=== PATIENT | male | born 1950 | race Caucasian/White ===

== ENCOUNTER 2018-03-09 12:08 | Emergency (ER) | payer MEDICARE, OTHER, SELFPAY ==
[2018-03-09 12:12] VITALS: PULSE 55; RESP 20; TEMP 36.6; O2SAT 99
--- NOTE | 2018-03-09 12:47 | ED.GENADUL_ITS ---
Discharge Plan Disposition Patient Disposition: HOME Condition: Good Discharge Details Chief Complaint: Nk/Back Pain Clinical Impression: Lumbago Primary Care Provider: Enrico Almanzar ED Provider: Lucas Jacobs Home Meds and New Rx's Prescriptions: New acetaminophen [Mapap Extra Strength] 500 MG tablet 1,000 mg PO Q6H 5 Days Qty: 60 RF: 0 lidocaine [Lidoderm] 1 PATCH patch 1 patch Topical Q24H Qty: 4 RF: 0 ibuprofen [Motrin IB] 200 MG tablet 600 mg PO Q6H 5 Days Qty: 60 RF: 0 cyclobenzaprine 7.5 mg tablet 7.5 mg PO TID Qty: 14 RF: 0 No Action aspirin 325 MG tablet,delayed release (DR/EC) 162 mg PO DAILY Qty: 30 RF: 0 atorvastatin 80 MG tablet 80 mg PO HS Qty: 90 RF: 4 oxybutynin chloride 10 MG tablet extended release 24hr 10 mg PO DAILY Qty: 90 RF: 4 levothyroxine 50 MCG tablet 50 mcg PO DAILY Qty: 90 RF: 4 metoprolol tartrate 25 MG tablet 25 mg PO BID Qty: 180 RF: 4 fenofibrate nanocrystallized [Tricor] 145 MG tablet 145 mg PO DAILY Qty: 90 RF: 3 insulin aspart U-100 [Novolog Flexpen U-100 Insulin] 100 UNIT/1 ML insulin pen 10 - 25 units Sub-Q AC Qty: 90 RF: 4 insulin glargine [Lantus Solostar U-100 Insulin] 300 UNITS/3 ML insulin pen 70 units Sub-Q QPM Qty: 4 RF: 3 melatonin 3 MG tablet extended release 3 mg PO HS Qty: 90 RF: 4 pen needle, diabetic [BD Ultra-Fine Amber Pen Needle] 1 EACH needle 1 ea Miscellaneous QID Qty: 200 RF: 5 blood sugar diagnostic [FreeStyle Lite Strips] strip 1 ea Miscellaneous QID Qty: 360 RF: 5 tadalafil [Cialis] 5 mg tablet 5 mg PO DAILY Qty: 90 RF: 4 Discharge Instructions Instructions: Low Back Strain (ED) Additional Instructions: Please take the medication as directed. Please do not drive or operate heavy machinery while taking the Flexeril medication. If you notice any numbness or tingling in your groin, or any worsening of your symptoms please return immediately. if you notice any worsening of your symptoms, or any new symptoms such as vomiting, diarrhea, fever, chills, shortness of breath, chest pain, numbness, weakness, or fainting , please return immediately to the emergency department for reevaluation. Please follow up with your primary care provider as soon as possible for reassessment and reevaluation. As always, it was a pleasure participating in your medical care today. Referrals: Enrico Almanzar MD [Primary Care Provider] - Discharge Data Discharge Date/Time-TO BE ENTERED AT DEPARTURE: 03/09/18 12:57 Medical Decision Making This is a 67-year-old male who presents for lower back pain. He has no red flags suggestive of cauda equina syndrome, no midline tenderness, no bowel or bladder incontinence. His symptoms came on when he had been moving and lifting a lot of objects at his work recently. Symptoms have been improved with ice and ibuprofen. He states that it feels similar to when he threw his back out in the past. Physical exam demonstrates no neurologic deficits, and no other concerning findings. With reproducible paraspinal pain, and signs and symptoms consistent with a muscle sprain, and clinically inconsistent with cauda equina syndrome or severe discopathy. Patient will be discharged home with Lidoderm patch, Flexeril, and instructions for continued ice and NSAIDs. We discussed red flags which return the patient understands. I have extensively reviewed the treatment plan and discharge instructions with the patient. I have addressed all patient concerns at this time. The patient was made aware of what symptoms to monitor for that would warrant a return to the emergency department. Discussed the plan with the patient, they demonstrate verbal understanding and agreement with our assessment and plan at this time. HPI General Date/Time Provider Initiated Documentation: 03/09/18 12:19 . HPI Narrative: This is a 67-year-old male with a past medical history of chronic back pain, who presents today for back pain. 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 He denies any trauma though. Initially he felt fine and then he noticed that his back gradually began to worsen and pain. It is worsened with movement, it is relieved by sitting upright. Patient states that he has been using ice, and ibuprofen and this significantly helped. He states he has thrown out his back in the past and he states that this feels exactly like that. He denies any saddle anesthesia, bowel or bladder incontinence, weakness of his lower extremities. He does admit to slight tingling that goes down his buttock bilaterally on the posterior aspect of his proximal thighs. Patient denies any other complaints at this time. He denies any other aggravating or relieving symptoms. He denies any recent surgeries. He denies any other complaints at this time. Related Data Home Medications Medication Instructions Recorded Confirmed aspirin 162 mg PO DAILY #30 tab-cap 04/29/17 atorvastatin 80 mg PO HS #90 tab 11/09/17 fenofibrate nanocrystallized 145 mg PO DAILY #90 tab-cap 11/09/17 [Tricor] insulin aspart U-100 [Novolog 10 - 25 units SUB-Q AC #90 pen 11/09/17 Flexpen U-100 Insulin] insulin glargine [Lantus Solostar 70 units SUB-Q QPM #4 box 11/09/17 U-100 Insulin] levothyroxine 50 mcg PO DAILY #90 tab-cap 11/09/17 metoprolol tartrate 25 mg PO BID #180 tab-cap 11/09/17 oxybutynin chloride 10 mg PO DAILY #90 tab-cap 11/09/17 melatonin 3 mg PO HS #90 tab 11/11/17 pen needle, diabetic [BD #200 ea 11/13/17 Ultra-Fine Amber Pen Needle] blood sugar diagnostic strips #360 strip 02/16/18 tadalafil 5 mg tablet 5 mg PO DAILY #90 tab-cap 02/16/18 acetaminophen [Mapap Extra 1,000 mg PO Q6H 5 Days #60 tab 03/09/18 Strength] cyclobenzaprine 7.5 mg PO TID #14 tab 03/09/18 ibuprofen [Motrin Ib] 600 mg PO Q6H 5 Days #60 tab 03/09/18 lidocaine [Lidoderm] 1 patch TOPICAL Q24H #4 patch 03/09/18 Previous Rx's Medication Instructions Recorded aspirin 162 mg PO DAILY #30 tab-cap 04/29/17 atorvastatin 80 mg PO HS #90 tab 11/09/17 fenofibrate nanocrystallized 145 mg PO DAILY #90 tab-cap 11/09/17 [Tricor] insulin aspart U-100 [Novolog 10 - 25 units SUB-Q AC #90 pen 11/09/17 Flexpen U-100 Insulin] insulin glargine [Lantus Solostar 70 units SUB-Q QPM #4 box 11/09/17 U-100 Insulin] levothyroxine 50 mcg PO DAILY #90 tab-cap 11/09/17 metoprolol tartrate 25 mg PO BID #180 tab-cap 11/09/17 oxybutynin chloride 10 mg PO DAILY #90 tab-cap 11/09/17 melatonin 3 mg PO HS #90 tab 11/11/17 pen needle, diabetic [BD #200 ea 11/13/17 Ultra-Fine Amber Pen Needle] blood sugar diagnostic strips #360 strip 02/16/18 tadalafil 5 mg tablet 5 mg PO DAILY #90 tab-cap 02/16/18 acetaminophen [Mapap Extra 1,000 mg PO Q6H 5 Days #60 tab 03/09/18 Strength] cyclobenzaprine 7.5 mg PO TID #14 tab 03/09/18 ibuprofen [Motrin Ib] 600 mg PO Q6H 5 Days #60 tab 03/09/18 lidocaine [Lidoderm] 1 patch TOPICAL Q24H #4 patch 03/09/18 Allergies Allergy/AdvReac Type Severity Reaction Status Date / Time No Known Allergies Allergy Unverified 11/23/17 12:05 General Stated Complaint: Nk/Back Pain CHRISTIANE: 3 Review of Systems Review of Systems All systems reviewed & are unremarkable except as noted in HPI and below PFSH Family History Father Diabetes Dementia Neoplasm Medical History Diabetes mellitus type 2 in obese Essential hypertension Hyperlipidemia Hypothyroidism Obesity (BMI 30-39.9) Social History Smoking/Tobacco Use Status: Former Tobacco Use alcohol intake: current alcohol intake frequency: a few times a week Surgical History Appendectomy Colonoscopy - IV Sedation Coronary Stent (09/26/16) Extraction of cataract Fracture, Open Treatment Repair of umbilical hernia Exam Narrative Exam Narrative: 1.Const: Well-nourished, Well-developed, appearing stated age 2.Eyes: PERRL, no conjunctival injection, and symmetrical lids. 3.ENT: Atraumatic external nose and ears. Moist MM. Neck: Symmetric, trachea midline, No thyromegaly. 4.CVS: +S1/S2, No murmurs or gallops. Peripheral pulses 2+ and equal in all extremities. Brisk capillary refill in all extremities. 5.RESP: Unlabored respiratory effort. Clear to auscultation bilaterally. No wheezes rales or rhonchi 6.GI: Soft, Nontender/Nondistended, No hepatosplenomegaly. No guarding or rebound. 7.MSK: Normocephalic/Atraumatic, Extremities w/o deformity or ttp No cyanosis or clubbing, Normal movement of all extremities no midline tenderness to palpation over the CTLS spine. Normal ROM in flexion, extension, side bend, and rotation. Patient has +5 out of 5 strength in the lower extremities in dorsiflexion and plantarflexion, knee flexion and extension, hip flexion and extension. There is +2 over 2 dorsalis pedis pulses bilaterally. There is normal sensation to the skin with light touch at the foot, knee, and hip. Normal saddle sensation. Good sensation over the deep sural nerve area bilaterally. Rectal exam demonstrated normal rectal sensation and rectal tone. Reflexes are +2 over 4 in the patellar reflex bilaterally. +5 out of 5 strength in the medial, ulnar, radial nerve distribution bilaterally in the hands as well as intact light touch sensation to these dermatomes on the hands. Patient does demonstrate worsening of her symptoms with positive leg raise bilaterally. 8.Skin: Warm, Dry. No rashes or lesions. 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 Sensation grossly intact, no focal neurologic deficits. All 6 cardinal planes of vision are fully intact. No evidence of rotatory or vertical nystagmus. The patient demonstrated a normal [id number]-[id number], good dexterity. There was no evidence of dysdiadochokinesia. Patient was able to ambulate without difficulty. There was no wide-based gait. Romberg, and uenz-ng-natr are both normal on testing. Sensation was intact bilaterally as well as muscle strength bilaterally for all extremities. Patient was able to verbalize butter cup with no slurring, or miss pronunciation. 10.Psych: (AAO) x3. Appropriate mood and affect Course Vital Signs Temperature 36.6 C 03/09/18 12:12 Pulse 55 L 03/09/18 12:12 Respiratory Rate 20 03/09/18 12:12 Pulse Oximetry 99 03/09/18 12:12 Temperature 36.6 C 03/09/18 12:12 Temperature Source Temporal Artery Scan 03/09/18 12:12 Pulse 55 L 03/09/18 12:12 Respiratory Rate 20 03/09/18 12:12 Respiratory Effort Non-Labored 03/09/18 12:12 Pulse Oximetry 99 03/09/18 12:12 Oxygen Delivery Method Room Air 03/09/18 12:12 Oxygen Flow Rate 0 03/09/18 12:12 Pain Level 10 03/09/18 12:12
[2018-03-09] MEDS: Lidocaine 5% Patch 1 PATCH TP (12:53)
[2018-03-09] MEDS: methylPREDNISolone SUCC 125 MG VIAL IVP (12:54)
== END 2018-03-09 12:57 | disposition home or self-care (01) ==
LOC: ER 13:09
PROVIDERS: Emergency Provider Student in an Organized Health Care Education/Training Program; PCP Family Medicine
DX: M54.5 Low back pain (principal); I10 Essential (primary) hypertension; E11.9 Type 2 diabetes mellitus without complications; Z79.4 Long term (current) use of insulin
CPT/HCPCS: 96374; 99284; J2930

== ENCOUNTER 2018-04-14 10:45 | Outpatient (CLI) | payer MEDICARE, OTHER, SELFPAY ==
--- NOTE | 2018-04-14 10:38 | DI.RAD_ITS ---
SYMPTOMS/DIAGNOSIS: PAIN RIGHT KNEE: Two views. Comparison 09/29/13. Mild periarticular spurring is seen of the posterior patella. The joint spaces are otherwise well maintained. The bones are intact and normally mineralized. There is a small enthesophyte seen at the superior patella. Calcifications and vascular clips are seen in the soft tissues. IMPRESSION: Minimal degenerative changes of the right knee.
== END 2018-04-14 11:05 ==
PROVIDERS: PCP Family Medicine; Referring Provider Family Medicine; Visit Provider Orthopaedic Surgery
DX: M25.561 Pain in right knee (principal); M17.11 Unilateral primary osteoarthritis, right knee; M77.11 Lateral epicondylitis, right elbow; I10 Essential (primary) hypertension; E11.9 Type 2 diabetes mellitus without complications; Z79.4 Long term (current) use of insulin
CPT/HCPCS: 20605; 20610; 99211; 99214; 73560; J1030; J1040

== ENCOUNTER 2018-05-19 11:55 | Outpatient (CLI) | payer MEDICARE, OTHER, SELFPAY ==
[2018-05-19 13:09] LABS: Abs Immature Grans 0.06 k/cumm (0.0-0.09); Absolute Basophil Count 0.05 k/cumm (0.0-0.2); Absolute Eosinophil Count 0.14 k/cumm (0.0-0.7); Absolute Lymphocyte Count 2.22 k/cumm (1.2-3.4); Absolute Monocyte Count 0.76 k/cumm (0.11-0.7); Absolute Neutrophil Count 5.98 k/cumm (1.2-6.7); Basophils % 0.5; Eosinophils % 1.5; HGB 12.8 g/dL (13.5-17.5); Immature Grans % 0.7; Lymphocytes % 24.1; Mean Corp. HGB Concentration 33.7 g/dL (32.0-36.0); Mean Corpuscular Hemoglobin 33.4 pg (27.0-33.0); Mean Corpuscular Volume 99.2 fL (80-95); Monocytes % 8.3; Neutrophils % 64.9; Platelet Count 311 x1000/uL (130-400); RBC 3.83 m/cumm (4.50-6.00); RBC Distribution Width 12.8 % (11.8-14.1); White Blood Cell Count 9.21 k/cumm (4.4-10.8)
[2018-05-19 14:09] LABS: ALT 39 U/L (12-78); AST 34 U/L (15-37); Alkaline Phosphatase 75 U/L (46-116); Anion Gap 11.4 mmol/L (3-11); BUN 48 mg/dL (7-18); Bilirubin, Direct 0.11 mg/dL (0.00-0.20); Bilirubin, Total 0.4 mg/dL (0.2-1.0); CO2 23.6 mmol/L (21.0-32.0); CREATININE 1.94 mg/dL (0.70-1.30); Calcium 9.6 mg/dL (8.5-10.1); Chloride 103 mmol/L (98-107); Estimated GFR 34.91 (mL/min/1.73m2); Glucose 155 mg/dL (70-100); Magnesium 1.6 mg/dL (1.8-2.4); Potassium 5.6 mmol/L (3.5-5.1); Sodium 138 mmol/L (136-145); TSH (W/Ref FT4) 2.69 uIU/mL (0.358-3.74)
[2018-05-19 14:33] LABS: Cholesterol 176 mg/dL (50-200); HDL Cholesterol 39 mg/dL (40-60); LDL CHOLESTEROL 106 mg/dL (<100); Triglyceride 123 mg/dL (30-150)
== END 2018-05-19 12:15 ==
PROVIDERS: PCP Family Medicine; Visit Provider Student in an Organized Health Care Education/Training Program
DX: I48.91 Unspecified atrial fibrillation (principal); I10 Essential (primary) hypertension; I25.10 Atherosclerotic heart disease of native coronary artery without angina pectoris; Z95.5 Presence of coronary angioplasty implant and graft
CPT/HCPCS: 36415; 80048; 80061; 80076; 83721; 83735; 84443; 85025

== ENCOUNTER 2018-05-19 12:32 | Outpatient (CLI) | payer MEDICARE, OTHER, SELFPAY | END 2018-05-19 12:52 | PROVIDERS: PCP Family Medicine; Visit Provider Student in an Organized Health Care Education/Training Program | DX: I25.810 Atherosclerosis of coronary artery bypass graft(s) without angina pectoris (principal); Z95.5 Presence of coronary angioplasty implant and graft; E78.5 Hyperlipidemia, unspecified; I12.9 Hypertensive chronic kidney disease with stage 1 through stage 4 chronic kidney disease, or unspecified chronic kidney disease; N18.9 Chronic kidney disease, unspecified; E11.22 Type 2 diabetes mellitus with diabetic chronic kidney disease; Z79.4 Long term (current) use of insulin | CPT/HCPCS: 36415; 80048; 80061; 80076; 83721; 99215; 83735; 84443; 85025; 93005; 93010 ==

== ENCOUNTER 2018-07-06 16:41 | Emergency (ER) | payer MEDICARE, OTHER, SELFPAY ==
[2018-07-06] VITALS (41 sets, daily range): BP systolic 132–176; BP diastolic 54–121; PULSE 57–78; RESP 14–30; TEMP 36.6–37; O2SAT 92–97
--- NOTE | 2018-07-06 16:51 | W.ED.GENAD ---
Discharge Plan Disposition Patient Disposition: HOME Condition: Stable Discharge Details Chief Complaint: Chest Pain Clinical Impression: Chest pain Primary Care Provider: Enrico Almanzar ED Provider: Gaurav Banks Home Meds and New Rx's Prescriptions: No Action aspirin 325 MG tablet,delayed release (DR/EC) 162 mg PO DAILY Qty: 30 RF: 0 atorvastatin 80 MG tablet 80 mg PO HS Qty: 90 RF: 4 oxybutynin chloride 10 MG tablet extended release 24hr 10 mg PO DAILY Qty: 90 RF: 4 levothyroxine 50 MCG tablet 50 mcg PO DAILY Qty: 90 RF: 4 metoprolol tartrate 25 MG tablet 25 mg PO BID Qty: 180 RF: 4 fenofibrate nanocrystallized [Tricor] 145 MG tablet 145 mg PO DAILY Qty: 90 RF: 3 Novolog Flexpen U-100 Insulin 100 UNIT/1 ML insulin pen 10 - 25 units Sub-Q AC Qty: 90 RF: 4 Lantus Solostar U-100 Insulin 300 UNITS/3 ML insulin pen 70 units Sub-Q QPM Qty: 4 RF: 3 melatonin 3 MG tablet extended release 3 mg PO HS Qty: 90 RF: 4 pen needle, diabetic [BD Ultra-Fine Amber Pen Needle] 1 EACH needle 1 ea Miscellaneous QID Qty: 200 RF: 5 FreeStyle Lite Strips strip 1 ea Miscellaneous QID Qty: 360 RF: 5 tadalafil [Cialis] 5 mg tablet 5 mg PO DAILY Qty: 90 RF: 4 amlodipine 5 mg tablet 5 mg PO DAILY Qty: 90 RF: 3 cyclobenzaprine 7.5 mg tablet 7.5 mg PO TID Qty: 14 RF: 0 Discharge Instructions Instructions: Chest Pain (ED) Additional Instructions: return to the emergency department if you have worsening pain or shortness of breath. follow up with cardiology as scheduled Medical Decision Making <Roe Rodrigues MD - Last Filed: 07/06/18 19:51> 67-year-old male with known coronary artery disease presents with an episode yesterday and again today of 1-2 out of 10 substernal chest pressure. No other associated symptoms. No other ameliorating or modifying factors. He has otherwise recently been well. He arrives to the ER afebrile and well-appearing, in no acute distress, states his chest pain has abated. Patient placed on a threat monitoring analyst, IV access was established, he was referred for chest x-ray D, E, laboratory testing. Patient's EKG is unchanged from recent comparison/baseline. His laboratories reveal white blood cell count 9, hematocrit 37, platelets 280. Sodium 139, potassium 4.6, chloride 103, bicarb 26, BUN 36, creatinine 1.4. LFTs unremarkable. BNP 809, Troponin negative. Chest x-ray with mild vascular prominence. Atelectasis in the lower lobes. He remains pain-free. He will be observed in the ER with repeat troponin obtained at 4 hours given his known coronary artery disease. Case to be signed out to Dr. Banks pending repeat EKG and troponin. Lab Data Lab results reviewed: Yes I reviewed the patient's lab results. Laboratory Results - last 24 hr 07/06/18 07/06/18 17:08 17:08 WBC 9.62 RBC 3.88 L Hgb 12.8 L Hct 37.5 L MCV 96.6 H MCH 33.0 MCHC 34.1 RDW 12.1 Plt Count 280 MPV 11.2 H Immature Gran % 0.3 Neutrophils % 68.5 Lymphocytes % 21.0 Monocytes % 8.0 Eosinophils % 1.9 Basophils % 0.3 Absolute Neutrophils 6.59 Absolute Lymphocytes 2.02 Absolute Monocytes 0.77 H Absolute Eosinophils 0.18 Absolute Basophils 0.03 Sodium 139 Potassium 4.6 Chloride 103 Carbon Dioxide 26.4 Anion Gap 9.6 BUN 36 H Creatinine 1.46 H Estimated GFR/1.73 m2 48.46 Glucose 175 H Calcium 8.6 Magnesium 1.3 L Total Bilirubin 0.5 AST 22 ALT 23 Alkaline Phosphatase 68 Troponin I 0.02 NT-Pro-B Natriuret Pep 809 H Total Protein 6.9 Albumin 3.7 ECG Data Attestation: I personally reviewed and interpreted this ECG (s) as follows: Interpretation: Normal sinus rhythm, rate of 65, intraventricular conduction delay with right bundle branch block, no change versus 03/21/17. <Gaurav Banks MD - Last Filed: 07/06/18 21:32> ECG Data Attestation: I personally reviewed and interpreted this ECG (s) as follows: Prior ECG tracings: not available for review Interpretation: 2nd ekg shows sinus rhythm, rate of 62, pr 240, no acute st t wave changes HPI <Roe Rodrigues MD - Last Filed: 07/06/18 19:51> General Mode of arrival: ambulatory. Date/Time Provider Initiated Documentation: 07/06/18 16:44. Limitations to Documentation: no limitations. Information obtained by: patient. History of Present Illness 67 year old M presents to the emergency department with the chief complaint of Chest pain yesterday and today, described as mild, Quality is described as dull and other (pressure), and is localized to the chest. Patient reports no radiation. Patient started experiencing this hour(s) and it has been intermittent. No relieving factors improve symptom(s), No exacerbating factors reported . Patient notes no other symptoms.; denies cough and fever/chills. Patient did receive the following treatments prior to arrival, none Related Data Home Medications Medication Instructions Recorded Confirmed aspirin 162 mg PO DAILY #30 tab-cap 04/29/17 07/06/18 Lantus Solostar U-100 Insulin 70 units SUB-Q QPM #4 box 11/09/17 07/06/18 Novolog Flexpen U-100 Insulin 10 - 25 units SUB-Q AC #90 pen 11/09/17 07/06/18 atorvastatin 80 mg PO HS #90 tab 11/09/17 07/06/18 fenofibrate nanocrystallized 145 mg PO DAILY #90 tab-cap 11/09/17 07/06/18 [Tricor] levothyroxine 50 mcg PO DAILY #90 tab-cap 11/09/17 07/06/18 metoprolol tartrate 25 mg PO BID #180 tab-cap 11/09/17 07/06/18 oxybutynin chloride 10 mg PO DAILY #90 tab-cap 11/09/17 07/06/18 melatonin 3 mg PO HS #90 tab 11/11/17 07/06/18 pen needle, diabetic [BD #200 ea 11/13/17 05/19/18 Ultra-Fine Amber Pen Needle] blood sugar diagnostic strips #360 strip 02/16/18 05/19/18 tadalafil 5 mg tablet 5 mg PO DAILY #90 tab-cap 02/16/18 07/06/18 cyclobenzaprine 7.5 mg PO TID #14 tab 03/09/18 07/06/18 amlodipine 5 mg tablet 5 mg PO DAILY #90 tab 05/21/18 07/06/18 Previous Rx's Medication Instructions Recorded aspirin 162 mg PO DAILY #30 tab-cap 04/29/17 Lantus Solostar U-100 Insulin 70 units SUB-Q QPM #4 box 11/09/17 Novolog Flexpen U-100 Insulin 10 - 25 units SUB-Q AC #90 pen 11/09/17 atorvastatin 80 mg PO HS #90 tab 11/09/17 fenofibrate nanocrystallized 145 mg PO DAILY #90 tab-cap 11/09/17 [Tricor] levothyroxine 50 mcg PO DAILY #90 tab-cap 11/09/17 metoprolol tartrate 25 mg PO BID #180 tab-cap 11/09/17 oxybutynin chloride 10 mg PO DAILY #90 tab-cap 11/09/17 melatonin 3 mg PO HS #90 tab 11/11/17 pen needle, diabetic [BD #200 ea 11/13/17 Ultra-Fine Amber Pen Needle] blood sugar diagnostic strips #360 strip 02/16/18 tadalafil 5 mg tablet 5 mg PO DAILY #90 tab-cap 02/16/18 cyclobenzaprine 7.5 mg PO TID #14 tab 03/09/18 amlodipine 5 mg tablet 5 mg PO DAILY #90 tab 05/21/18 Allergies Allergy/AdvReac Type Severity Reaction Status Date / Time No Known Allergies Allergy Verified 07/06/18 16:57 General CHRISTIANE: 3 Review of Systems <Roe Rodrigues MD - Last Filed: 07/06/18 19:51> Review of Systems Chronic R shoulder pain. Denies recent illness. 6 systems reviewed and otherwise - [facility] <Roe Rodrigues MD - Last Filed: 07/06/18 19:51> Medical History Diabetes mellitus type 2 in obese Essential hypertension Hyperlipidemia Hypothyroidism Obesity (BMI 30-39.9) Surgical History Appendectomy Colonoscopy - IV Sedation Coronary Stent (09/26/16) Extraction of cataract Fracture, Open Treatment Repair of umbilical hernia Family History Father Diabetes Dementia Neoplasm Social History Smoking and Tabacco status: Former Tobacco Use alcohol intake: current alcohol intake frequency: a few times a week Exam <Roe Rodrigues MD - Last Filed: 07/06/18 19:51> Narrative Exam Narrative: GEN: awake, alert, oriented 3. Pleasant, well groomed, interactive. HEAD: Normocephalic, atraumatic ENT: Mucous membranes moist, oropharynx unremarkable, External ear exam unremarkable EYES: PERRL, EOMI NECK: Full ROM, no FATEMEH, no menigismus CHEST/RESP: Nontender, clear to auscultation bilateral, no wheeze/rhonchi/rales CARDIOVASCULAR: RRR, no murmur, rub dino. 2+ Rad pulse bilateral ABDOMEN: Soft, nontender, no mass. +Bowel sounds EXT: Full ROM, no edema, no rash Neuro: Grossly normal neurologic exam, conversant, interactive. Psych: Speech fluent, thoughts congruent, affect normal Sign Out <Roe Rodrigues MD - Last Filed: 07/06/18 19:51> Sign Out Data: Sign Out Comment: Followup 4 trop/EKG Last updated by Roe Rodrigues MD at 07/06/18 18:52 Post-Handoff Eval: 2nd troponin negative and ekg also shows no acute changes. He remains without symptoms, still has no desire for observation and has capacity to make his own decisions. He understands the risks of leaving including and disability. He will return if worsening and I advised that he f/u with cardiology as scheduled
--- NOTE | 2018-07-06 17:06 | DI.RAD_ITS ---
SYMPTOM/DIAGNOSIS: SSC PRESSURE PA AND LATERAL CHEST: Comparison is made with 11/23/17. The heart is enlarged. There is prominence of the pulmonary vasculature. Sternal wires are in place. No gross effusions or pneumothoraces are identified. There do appear to be opacities in the lower lobes which may represent pneumonia, atelectasis or pulmonary edema. IMPRESSION: Cardiomegaly. Pulmonary venous congestion suggesting interstitial edema. Opacities in the lungs, predominantly the bases. Differential considerations include pulmonary edema, atelectasis or pneumonia.
[2018-07-06 17:19] LABS: Abs Immature Grans 0.03 k/cumm (0.0-0.09); Absolute Basophil Count 0.03 k/cumm (0.0-0.2); Absolute Eosinophil Count 0.18 k/cumm (0.0-0.7); Absolute Lymphocyte Count 2.02 k/cumm (1.2-3.4); Absolute Monocyte Count 0.77 k/cumm (0.11-0.7); Absolute Neutrophil Count 6.59 k/cumm (1.2-6.7); Basophils % 0.3; Eosinophils % 1.9; HCT 37.5 % (40.0-50.0); HGB 12.8 g/dL (13.5-17.5); Immature Grans % 0.3; Mean Corp. HGB Concentration 34.1 g/dL (32.0-36.0); Mean Corpuscular Volume 96.6 fL (80-95); Mean Platelet Volume 11.2 fL (8.0-11.0); Neutrophils % 68.5; Platelet Count 280 x1000/uL (130-400); RBC 3.88 m/cumm (4.50-6.00); RBC Distribution Width 12.1 % (11.8-14.1); White Blood Cell Count 9.62 k/cumm (4.4-10.8)
[2018-07-06 17:36] LABS: ALT 23 U/L (12-78); AST 22 U/L (15-37); Albumin 3.7 g/dL (3.4-5.0); Alkaline Phosphatase 68 U/L (46-116); Anion Gap 9.6 mmol/L (3-11); BUN 36 mg/dL (7-18); Bilirubin, Total 0.5 mg/dL (0.2-1.0); CO2 26.4 mmol/L (21.0-32.0); CREATININE 1.46 mg/dL (0.70-1.30); Calcium 8.6 mg/dL (8.5-10.1); Chloride 103 mmol/L (98-107); Estimated GFR 48.46 (mL/min/1.73m2); Glucose 175 mg/dL (70-100); Magnesium 1.3 mg/dL (1.8-2.4); NT-proBNP 809 pg/mL; Potassium 4.6 mmol/L (3.5-5.1); Sodium 139 mmol/L (136-145); Total Protein 6.9 g/dL (6.4-8.2); Troponin I 0.02 ng/mL (0.00-0.06)
[2018-07-06] MEDS: MAGNESIUM SULFATE 2 GM/50 ML BAG IVPB (17:48)
--- NOTE | 2018-07-06 18:14 | DI.VRAD_ITS ---
EXAM: XR Chest, 2 Views EXAM DATE/TIME: 07/06/2018 5:07 PM CLINICAL HISTORY: 67 years old, male; Signs and symptoms; Other: Sscpressure TECHNIQUE: XR of the chest, 2 views. COMPARISON: SC PORTABLE CHEST ONE VIEW 02/25/2017 11:53 PM FINDINGS: Lungs: Opacities in the lower lobes may represent atelectasis or pneumonia. Pleural space: Unremarkable. No pleural effusion. No pneumothorax. Heart/Mediastinum: Cardiomegaly and mild vascular prominence may represent interstitial edema. Bones/joints: Median sternotomy IMPRESSION: 1. Cardiomegaly and mild vascular prominence may represent interstitial edema. 2. Opacities in the lower lobes may represent atelectasis or pneumonia. Dictated and Authenticated by: Toña Starr MD. Ordering:DAVON Au MD
--- NOTE | 2018-07-06 18:47 | NUR.NOTE ---
Nursing Note: Resting in bed, no acute distress. denies cp at this time. repeat troponin for 2100. will continue to monitor.
[2018-07-06 21:18] LABS: Troponin I 0.02 ng/mL (0.00-0.06)
== END 2018-07-06 21:40 | disposition home or self-care (01) ==
PROVIDERS: Emergency Medicine; Emergency Provider Emergency Medicine; PCP Family Medicine
DX: R07.9 Chest pain, unspecified (principal); I25.10 Atherosclerotic heart disease of native coronary artery without angina pectoris; I10 Essential (primary) hypertension; E11.9 Type 2 diabetes mellitus without complications; Z79.4 Long term (current) use of insulin; Z95.1 Presence of aortocoronary bypass graft
CPT/HCPCS: 36415; 80053; 93005; 96365; 96366; 99285; 71046; 83735; 83880; 84484; 85025; 93010; 99284

== ENCOUNTER → 2018-07-21 11:23 | Outpatient (CLI) | payer MEDICARE, OTHER, SELFPAY ==
--- NOTE | 2018-07-21 11:11 | DI.RAD_ITS ---
SYMPTOMS/DIAGNOSIS: PAIN RIGHT SHOULDER: Mild degenerative changes are seen at the acromioclavicular joint and the glenohumeral joint. No acute fracture or dislocation is seen. The soft tissues are unremarkable. IMPRESSION: Mild degenerative changes of the right shoulder.
== END ==
PROVIDERS: PCP Family Medicine; Referring Provider Family Medicine; Visit Provider Orthopaedic Surgery
DX: M25.511 Pain in right shoulder (principal); M19.011 Primary osteoarthritis, right shoulder; M77.11 Lateral epicondylitis, right elbow; E11.9 Type 2 diabetes mellitus without complications; Z79.4 Long term (current) use of insulin
CPT/HCPCS: 99211; 99213; 73030

== ENCOUNTER 2018-09-30 11:17 | Emergency (ER) | payer MEDICARE, OTHER, SELFPAY ==
[2018-09-30] VITALS (17 sets, daily range): BP systolic 129–136; BP diastolic 57–71; PULSE 54–68; RESP 10–37; TEMP 36.8; O2SAT 93–98
[2018-09-30 11:50] LABS: Abs Immature Grans 0.02 k/cumm (0.0-0.09); Absolute Basophil Count 0.03 k/cumm (0.0-0.2); Absolute Eosinophil Count 0.15 k/cumm (0.0-0.7); Absolute Lymphocyte Count 1.52 k/cumm (1.2-3.4); Absolute Monocyte Count 0.61 k/cumm (0.11-0.7); Absolute Neutrophil Count 3.74 k/cumm (1.2-6.7); Basophils % 0.5; Eosinophils % 2.5; HCT 37.7 % (40.0-50.0); HGB 12.6 g/dL (13.5-17.5); Immature Grans % 0.3; Mean Corp. HGB Concentration 33.4 g/dL (32.0-36.0); Mean Corpuscular Hemoglobin 32.8 pg (27.0-33.0); Mean Corpuscular Volume 98.2 fL (80-95); Mean Platelet Volume 10.7 fL (8.0-11.0); Neutrophils % 61.7; Platelet Count 270 x1000/uL (130-400); RBC 3.84 m/cumm (4.50-6.00); RBC Distribution Width 12.5 % (11.8-14.1); White Blood Cell Count 6.07 k/cumm (4.4-10.8)
--- NOTE | 2018-09-30 11:59 | W.ED.GENAD ---
Discharge Plan Disposition Patient Disposition: HOME Condition: Fair Discharge Details Chief Complaint: Chest Pain Clinical Impression: Episodic lightheadedness Primary Care Provider: Enrico Almanzar ED Provider: Aliyah Byrd Home Meds and New Rx's Prescriptions: Continued prednisolone 5 mg tablet 5 mg PO DAILY RF: 0 aspirin 325 MG tablet,delayed release (DR/EC) 162 mg PO DAILY Qty: 30 RF: 0 atorvastatin 80 MG tablet 80 mg PO HS Qty: 90 RF: 4 oxybutynin chloride 10 MG tablet extended release 24hr 10 mg PO DAILY Qty: 90 RF: 4 levothyroxine 50 MCG tablet 50 mcg PO DAILY Qty: 90 RF: 4 metoprolol tartrate 25 MG tablet 25 mg PO BID Qty: 180 RF: 4 Novolog Flexpen U-100 Insulin 100 UNIT/1 ML insulin pen 10 - 25 units Sub-Q AC Qty: 90 RF: 4 Lantus Solostar U-100 Insulin 300 UNITS/3 ML insulin pen 70 units Sub-Q QPM Qty: 4 RF: 3 melatonin 3 MG tablet extended release 3 mg PO HS Qty: 90 RF: 4 pen needle, diabetic [BD Ultra-Fine Amber Pen Needle] 1 EACH needle 1 ea Miscellaneous QID Qty: 200 RF: 5 FreeStyle Lite Strips strip 1 ea Miscellaneous QID Qty: 360 RF: 5 tadalafil [Cialis] 5 mg tablet 5 mg PO DAILY Qty: 90 RF: 4 amlodipine 5 mg tablet 5 mg PO DAILY Qty: 90 RF: 3 fenofibrate nanocrystallized [Tricor] 145 mg tablet 145 mg PO DAILY Qty: 90 RF: 3 cyclobenzaprine 7.5 mg tablet 7.5 mg PO TID Qty: 14 RF: 0 Discharge Instructions Instructions: Lightheadedness (ED) Additional Instructions: Your labs, EKG and chest x-ray are reassuring today. If you develop recurrent symptoms, chest pain, shortness of breath, fever/chills or other new/worsening symptoms please seek care urgently once again. Please follow-up with primary care in 1 week for reevaluation. Referrals: Enrico Almanzar MD [Primary Care Provider] - Discharge Data Discharge Date/Time-TO BE ENTERED AT DEPARTURE: 09/30/18 16:16 Medical Decision Making Patient 67-year-old male presenting today after episode of lightheadedness at work. Reports that he was standing and talking with someone when he suddenly had a transient episode of lightheadedness and presyncope. Denied any chest pain at that time but he does report that he has had intermittent chest pressure like it Is sitting on my chest for quite some time. Patient was not active when this occurred. Does not sound consistent with orthostatic hypotension. He denies any difficulty breathing or shortness of breath. No recent illness. States that he has mild nausea initially but this is since resolved. Patient is currently feeling quite well and is asymptomatic. He does have cardiac history and is status post CABG. Patient also has history of poorly controlled diabetes, obesity, hyperlipidemia, hypertension, renal insufficiency, hypomagnesemia, nocturnal hypoxemia. On exam, patient appears obese. He is sitting comfortably. Speaking in full sentences in no apparent distress. Heart rate is slightly low at 56, this is typical for the patient. He is afebrile, oxygen is 97% on room air. Considered possible arrhythmia, will obtain EKG. He does deny palpitations. Also considered ACS but patient reports very different than his previous ACS events. He does find pulmonary embolism very unlikely given the vital signs and the patient is without other symptoms. He has no leg swelling, negative Homans sign bilaterally. Also considered orthostatic hypotension although the only when she is occurred does not sound classic for this. Patient is on metoprolol. No recent change in medications per EKG reviewed by Dr. Rodrigues and compared to previous. RBBBB noted but unchanged. NSR rate 60, no acute ischemic changes noted. Labs were reviewed, creatinine is elevated at baseline for patient. Glucoses are in 200s again, appears to be baseline for the patient. Troponin is less than 0.02. BNP is elevated but again baseline for the patient . Given the patient's history, advised 4-hour troponin which the patient is in agreement with. Repeat troponin remains less than 0.02. Discussed these findings with the patient. Advised that he should follow-up with his primary care. I did consider the use of Holter monitor the patient did not have any palpitations, is only had one episode, will have him referred to his primary care to discuss this further. He was given strict return precautions. All of his questions and concerns were addressed and he is in agreement with this plan. [facility] General Mode of arrival: ambulatory. Date/Time Provider Initiated Documentation: 09/30/18 11:22. Limitations to Documentation: no limitations. Information obtained by: patient and RN notes reviewed. History of Present Illness 67 year old M presents to the emergency department with the chief complaint of lightheaded, described as moderate, Quality is described as aching (intermittent CP, none currently), and is localized to the chest. Patient reports no radiation. Patient started experiencing this hour(s) and it has been now resolved (lightheadedness was brief, now resolved. CP intermittent sev. months, resolved now). No relieving factors improve symptom(s), No exacerbating factors reported . Patient notes chest pain; denies cough, diaphoresis, fever/chills, headaches, loss of appetite, nausea/vomiting, rash, shortness of breath and weakness. Patient did receive the following treatments prior to arrival, none Related Data Home Medications Medication Instructions Recorded Confirmed aspirin 162 mg PO DAILY #30 tab-cap 04/29/17 07/21/18 Lantus Solostar U-100 Insulin 70 units SUB-Q QPM #4 box 11/09/17 07/21/18 Novolog Flexpen U-100 Insulin 10 - 25 units SUB-Q AC #90 pen 11/09/17 07/21/18 atorvastatin 80 mg PO HS #90 tab 11/09/17 07/21/18 levothyroxine 50 mcg PO DAILY #90 tab-cap 11/09/17 07/21/18 metoprolol tartrate 25 mg PO BID #180 tab-cap 11/09/17 07/21/18 oxybutynin chloride 10 mg PO DAILY #90 tab-cap 11/09/17 07/21/18 melatonin 3 mg PO HS #90 tab 11/11/17 07/21/18 pen needle, diabetic [BD #200 ea 11/13/17 07/21/18 Ultra-Fine Amber Pen Needle] blood sugar diagnostic strips #360 strip 02/16/18 07/21/18 tadalafil 5 mg tablet 5 mg PO DAILY #90 tab-cap 02/16/18 07/21/18 cyclobenzaprine 7.5 mg PO TID #14 tab 03/09/18 07/21/18 amlodipine 5 mg tablet 5 mg PO DAILY #90 tab 05/21/18 07/21/18 prednisolone 5 mg tablet 5 mg PO DAILY 07/21/18 07/21/18 fenofibrate nanocrystallized 145 145 mg PO DAILY #90 tab-cap 09/24/18 mg tablet Previous Rx's Medication Instructions Recorded aspirin 162 mg PO DAILY #30 tab-cap 04/29/17 Lantus Solostar U-100 Insulin 70 units SUB-Q QPM #4 box 11/09/17 Novolog Flexpen U-100 Insulin 10 - 25 units SUB-Q AC #90 pen 11/09/17 atorvastatin 80 mg PO HS #90 tab 11/09/17 levothyroxine 50 mcg PO DAILY #90 tab-cap 11/09/17 metoprolol tartrate 25 mg PO BID #180 tab-cap 11/09/17 oxybutynin chloride 10 mg PO DAILY #90 tab-cap 11/09/17 melatonin 3 mg PO HS #90 tab 11/11/17 pen needle, diabetic [BD #200 ea 11/13/17 Ultra-Fine Amber Pen Needle] blood sugar diagnostic strips #360 strip 02/16/18 tadalafil 5 mg tablet 5 mg PO DAILY #90 tab-cap 02/16/18 cyclobenzaprine 7.5 mg PO TID #14 tab 03/09/18 amlodipine 5 mg tablet 5 mg PO DAILY #90 tab 05/21/18 fenofibrate nanocrystallized 145 145 mg PO DAILY #90 tab-cap 09/24/18 mg tablet Allergies Allergy/AdvReac Type Severity Reaction Status Date / Time No Known Allergies Allergy Verified 09/30/18 11:38 General Stated Complaint: Chest Pain CHRISTIANE: 2 Review of Systems Constitutional Reports as per HPI, Denies chills, Denies fever(s), Denies headache(s), Denies lethargy and Denies poor appetite Eyes Reports blurry vision (had been blurred when lightheaded, since resolved) and Denies change in vision ENT Denies dizziness and Denies headache(s) Cardiovascular Reports as per HPI, Reports chest pain (intermittent, had this last night when at rest), Denies chest pain with activity, Denies syncope, Denies pedal edema, Denies leg edema, Reports lightheadedness (brief, since resolved), Denies radiating jaw, neck or arm pain, Denies palpitations, Denies dyspnea and Denies dyspnea on exertion Respiratory Reports as per HPI, Denies chest congestion, Denies cough, Denies pain on inspiration, Denies pain with cough, Denies dyspnea, Denies dyspnea on exertion and Denies wheezing Gastrointestinal Reports as per HPI, Denies abdominal pain, Denies diarrhea, Denies nausea and Denies vomiting Genitourinary Denies system reviewed and no additional complaints, except as docu (denies change in urinary habits) Musculoskeletal Reports as per HPI and Denies back pain Integumentary/Breasts Reports as per HPI and Denies rash Neurologic Reports as per HPI, Denies dizziness, Denies syncope and Denies headache(s) Endocrine Denies palpitations Allergic/Immunologic Denies wheezing [facility] History Diabetes mellitus type 2 in obese Essential hypertension Hyperlipidemia Hypothyroidism Obesity (BMI 30-39.9) Surgical History Appendectomy Colonoscopy - IV Sedation Coronary Stent (09/26/16) Extraction of cataract Fracture, Open Treatment Repair of umbilical hernia Social History Smoking/Tobacco Use Status: Former Tobacco Use Alcohol Intake: current Alcohol Intake frequency: a few times a week Drug use: Never Substance use type: does not use Do you feel safe at home: Yes Do you feel safe in your relationship?: Yes Exam Const General: cooperative, healthy appearing, comfortable, no acute distress and well developed Nutritional Appearance: well nourished and obese Orientation: alert, awake and oriented x3 HENMT Head: normal to inspection Ears: hearing grossly normal bilaterally Mouth: moist mucous membranes Chest Chest: normal inspection of the chest, normal palpation of entire chest wall and no crepitus Resp Effort & Inspection: normal respiratory effort, able to speak in complete sentences and no respiratory distress Auscultation: clear to auscultation bilaterally, no rales, no rhonchi and no wheezes Cardio Rate: regular rate Rhythm: regular rhythm Heart Sounds: S1 normal and S2 normal GI Inspection: no edema, non-distended and obesity Palpation: soft, no hepatosplenomegaly, not firm, no guarding, not rigid and nontender Auscultation: normal bowel sounds Back/Spine/Pelvis Back: no CVA tenderness Thoracic/Lumbar Spine: thoracic and lumbar spine normal to inspection Skin General skin exam: no rashes or lesions noted Trauma: no lacerations or abrasions Neuro General: alert, awake and oriented x3 Cognition: normal cognition Speech: speech normal Gait: normal gait Extrem General: normal to inspection, normal capillary refill, no pedal edema, no calf tenderness and normal gait Psych Appearance: grossly normal and well kempt Mental Status: mental status grossly normal Speech and Movement: speech and movement normal Course Vital Signs Temperature 36.8 C 09/30/18 11:35 Pulse 60 09/30/18 11:35 Respiratory Rate 20 09/30/18 11:35 Blood Pressure 132/59 L 09/30/18 11:35 Pulse Oximetry 98 09/30/18 11:35 Temperature 36.8 C 09/30/18 11:35 Temperature Source Temporal Artery Scan 09/30/18 11:35 Pulse 60 09/30/18 11:35 Respiratory Rate 20 09/30/18 11:38 Respiratory Effort Non-Labored 09/30/18 11:38 Respiratory Depth Normal 09/30/18 11:38 Respiratory Pattern Normal 09/30/18 11:38 Blood Pressure 132/59 L 09/30/18 11:35 Pulse Oximetry 98 09/30/18 11:35 Oxygen Delivery Method Room Air 09/30/18 11:35 Oxygen Flow Rate 0 09/30/18 11:35 Pain Level 1 09/30/18 11:38 Lab/Test Results Lab/Test Results: Laboratory Tests Range/Units 09/30/18 11:45 WBC (4.4-10.8) k/cumm 6.07 RBC (4.50-6.00) m/cumm 3.84 L Hgb (13.5-17.5) g/dL 12.6 L Hct (40.0-50.0) % 37.7 L MCV (80-95) fL 98.2 H MCH (27.0-33.0) pg 32.8 MCHC (32.0-36.0) g/dL 33.4 RDW (11.8-14.1) % 12.5 Plt Count (130-400) x1000/uL 270 MPV (8.0-11.0) fL 10.7 Immature Gran % 0.3 Neutrophils % 61.7 Lymphocytes % 25.0 Monocytes % 10.0 Eosinophils % 2.5 Basophils % 0.5 Absolute Neutrophils (1.2-6.7) k/cumm 3.74 Absolute Lymphocytes (1.2-3.4) k/cumm 1.52 Absolute Monocytes (0.11-0.7) k/cumm 0.61 Absolute Eosinophils (0.0-0.7) k/cumm 0.15 Absolute Basophils (0.0-0.2) k/cumm 0.03
[2018-09-30 12:07] LABS: INR 0.9 (0.9-1.1); PTT Activated 21.6 sec (21.0-31.4); Prothrombin Time 9.4 sec (9.3-11.0)
[2018-09-30 12:14] LABS: ALT 25 U/L (12-78); AST 18 U/L (15-37); Albumin 3.6 g/dL (3.4-5.0); Alkaline Phosphatase 90 U/L (46-116); Anion Gap 9.2 mmol/L (3-11); BUN 41 mg/dL (7-18); Bilirubin, Total 0.3 mg/dL (0.2-1.0); CO2 23.8 mmol/L (21.0-32.0); CREATININE 1.75 mg/dL (0.70-1.30); Calcium 8.6 mg/dL (8.5-10.1); Chloride 102 mmol/L (98-107); Estimated GFR 39.31 (mL/min/1.73m2); Glucose 213 mg/dL (70-100); Magnesium 1.4 mg/dL (1.8-2.4); NT-proBNP 366 pg/mL; Potassium 4.4 mmol/L (3.5-5.1); Sodium 135 mmol/L (136-145); Total Protein 6.7 g/dL (6.4-8.2)
[2018-09-30 12:15] LABS: Troponin I < 0.02 ng/mL (0.00-0.06)
--- NOTE | 2018-09-30 12:21 | DI.RAD_ITS ---
SYMPTOMS/DIAGNOSIS: CHEST PAIN PA AND LATERAL CHEST: The lungs are free of infiltrate. There is no pleural effusion. The heart is enlarged in this patient who is status post CABG without interval change. SUMMARY: No evidence of acute cardiopulmonary disease.
[2018-09-30 15:43] LABS: Troponin I < 0.02 ng/mL (0.00-0.06)
== END 2018-09-30 16:16 | disposition home or self-care (01) ==
PROVIDERS: Emergency Provider Physician Assistant; PCP Family Medicine
DX: R42 Dizziness and giddiness (principal); E11.9 Type 2 diabetes mellitus without complications; I10 Essential (primary) hypertension; Z95.1 Presence of aortocoronary bypass graft; Z95.5 Presence of coronary angioplasty implant and graft; Z79.4 Long term (current) use of insulin
CPT/HCPCS: 36415; 80053; 93005; 99285; 71046; 83735; 83880; 84484; 85025; 85610; 85730; 93010

== ENCOUNTER → 2018-11-10 10:09 | Outpatient (BNVA) | payer MEDICARE, OTHER, SELFPAY | PROVIDERS: PCP Family Medicine; Visit Provider Student in an Organized Health Care Education/Training Program | DX: I25.10 Atherosclerotic heart disease of native coronary artery without angina pectoris (principal); Z95.5 Presence of coronary angioplasty implant and graft; Z95.1 Presence of aortocoronary bypass graft; I12.9 Hypertensive chronic kidney disease with stage 1 through stage 4 chronic kidney disease, or unspecified chronic kidney disease; E78.2 Mixed hyperlipidemia; N18.9 Chronic kidney disease, unspecified; E11.22 Type 2 diabetes mellitus with diabetic chronic kidney disease | CPT/HCPCS: 99214 ==

== ENCOUNTER → 2018-11-24 10:19 | Outpatient (BNVA) | payer MEDICARE, OTHER, SELFPAY | PROVIDERS: PCP Family Medicine; Referring Provider Family Medicine; Visit Provider Orthopaedic Surgery | DX: M75.81 Other shoulder lesions, right shoulder (principal) | CPT/HCPCS: 99213 ==

== ENCOUNTER 2018-11-25 12:14 | Outpatient (CLI) | payer MEDICARE, OTHER, SELFPAY ==
[2018-11-25 13:20] LABS: Hemoglobin A1C 8.6 % (4.5-6.2)
[2018-11-25 13:41] LABS: CREATININE 1.52 mg/dL (0.70-1.30); Estimated GFR 46.26 (mL/min/1.73m2); TSH 2.26 uIU/mL (0.36-3.74)
== END 2018-11-25 12:34 ==
PROVIDERS: PCP General Practice; Visit Provider General Practice
DX: E11.9 Type 2 diabetes mellitus without complications (principal); E03.9 Hypothyroidism, unspecified
CPT/HCPCS: 36415; 82565; 83036; 84443

== ENCOUNTER 2018-12-08 00:48 | Outpatient (CLI) | payer MEDICARE, OTHER, SELFPAY ==
--- NOTE | 2018-12-08 08:30 | ETT_ITS ---
*[facility]* *[facility]* [address] [place] [address] Stress Electrocardiography Hermann protocol Date of study: 12/08/2018 *PATIENT PRESENTATION* Height: 177.8cm (70in) Blood Pressure: Weight: 129.5kg (285lb) BSA: 2.59m^2 Ordering physician: Skyler Zaman Impressions: Indeterminate stress test due to inadequate heart rate. Summary: 1. Stress ECG conclusions: The stress ECG is negative to less than 85% MPHR. De La O treadmill score: 1. This score predicts a moderate risk of cardiac events. 2. Stress: The target heart rate was achieved. The heart rate response to stress is blunted. There is resting hypertension with an appropriate response to stress. Stress-induced chest pain. Exercise capacity is mildly diminished for age. 3. Treadmill exercise testing was performed using the Hermann protocol. The patient exercised for 5 min, to protocol stage 2, to a maximal work rate of 7mets. Exercise was terminated due to chest pain and fatigue. Recommendations: Stress myocardial perfusion imaging should be performed for further risk stratification. Indication: R07.9, Appropriate Use Criteria: A (Appropriate). History: REASON FOR TESTING: PATIENT TESTING TODAY FOR FURTHER RISK STRATIFICATION. FOR ONE MONTH NOW HE REPORTS HAVING OCCASIONAL NON RADIATING MID STERNAL CHEST TWINGES/PAIN AT REST. HE DENIES CHEST PAIN UPON ARRIVAL TO TESTING TODAY. SIGNIFICANT PAST MEDICAL HISTORY: STATUS POST ARTERY BYPASS WITH AUTOGENOUS GRAFT, THREE GRAFTS; STATUS POST CORONARY ARTERY STENT PLACEMENT, OBSTRUCTIVE SLEEP APNEA. SMOKING STATUS: QUIT SMOKING 2015. SMOKED FOR 37 YEARS 05/07 PPD. EXERCISE ROUTINE: DAILY ADL'S Risk factors: Hypertension. Diabetes mellitus. Obesity. Dyslipidemia. Cholesterol: 176mg/dl. HDL: 39mg/dl. LDL: 106mg/dl. Triglycerides: 123mg/dl. ALLERGIES: NO KNOWN DRUG ALLERGIES. MEDICATIONS: TADALAFIL 5 MG DAILY, ROSUVASTATIN 40 MG DAILY, PREDNISONE 5 MG DAILY, OXYBUTRYNIN CHLORIDE 10 MG DAILY, METOPROLOL TARTRATE 25 BID, MELATONIN 3 MG, LEVOTHYROXINE 50 MCG DAILY, FENOFIBRATE NANOCRYSTALLIZED 145 MG DAILY, ASPIRIN 162 MG DAILY, AMLODIPINE 5 MG DAILY, NOVOLOG INSULIN 10-25 UNITS AC, LANTUS INSULIN 70 UNITS QPM. Protocol: Hermann protocol. 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 HR 59 BPM. Sinus bradycardia with 1degrees AV block and right bundle branch plus left anterior fascicular block. Stress protocol: + +---+ + !Stage !HR !BP (mmHg) ! + +---+ + !Baseline supine !57 !170/84 (113)! + +---+ + !Baseline standing !65 !168/76 (107)! + +---+ + !Stage I; 1.7mph, 10degrees; 3 min!109!190/88 (122)! + +---+ + !Peak stress !124! ! + +---+ + !Recovery; 1 min !92 !204/86 (125)! + +---+ + !Recovery; 3 min !68 !178/90 (119)! + +---+ + !Recovery; 6 min !62 !175/84 (114)! + +---+ + !Recovery; 9 min !62 !178/80 (113)! + +---+ + * Stress results: STRESS TEST ENDED IN 5 MINUTES 8 SECONDS DUE TO FATIGUE. NOTE PATIENT ALSO REPORTED CHEST PAIN 7/10 AT THIS TIME. HYPERTENSIVE SYSTOLIC BLOOD PRESSURE AT BASELINE. OTHERWISE NORMAL RESPONSE TO EXERCISE. NORMAL HEART RATE RESPONSE TO EXERCISE. MAX HEART RATE: 124. 80 % OF TARGET HEART RATE ACHIEVED. MET'S: 7.05 NO ECTOPY. MIDSTERNAL NON RADIATING CHEST PAIN (7/10) AT 4 MINUTES 47 SECONDS OF EXERCISE. MIDSTERNAL NON RADIATING CHEST PAIN (2/10) AT 2 MINUTES 21 SECONDS OF RECOVERY. MIDSTERNAL NON RADIATING CHEST PAIN (0/10) AT 2 MINUTES 79 SECONDS OF RECOVERY. NO SIGNIFICANT ST SEGMENT CHANGES. MILDLY DIMINISHED FUNCTIONAL CAPACITY. NOTE PATIENT UNABLE TO REACH TARGET HEART RATE. Maximal heart rate during stress was 124bpm (81% of maximal predicted heart rate). The maximal predicted heart rate was 154bpm. The target heart rate was achieved. The heart rate response to stress is blunted. There is resting hypertension with an appropriate response to stress. The rate-pressure product for the peak heart rate and blood pressure was 21114gh Hg/min. Stress-induced chest pain. Exercise capacity is mildly diminished for age. Stress ECG: The stress ECG is negative to less than 85% MPHR. De La O treadmill score: 1. This score predicts a moderate risk of cardiac events. Study data: Micha Sullivan MD supervised and was readily available during the procedure. This study was interpreted by [facility]. Study status: Routine. Consent: The risks, benefits, and alternatives to the procedure were explained to the patient and informed consent was obtained. Procedure: Initial setup. A baseline ECG was recorded. Surface ECG leads and manual cuff blood pressure measurements were monitored. Heart sounds: Normal. Lung sounds: Normal. Treadmill exercise testing was performed using the Hermann protocol. The patient exercised for 5 min, to protocol stage 2, to a maximal work rate of 7mets. Exercise was terminated due to chest pain and fatigue. Study completion: The patient tolerated the procedure well and was discharged from the lab. Discharge: The patient left the laboratory in stable condition. Birthdate: Patient birthdate: 1950. Sex: Gender: male. Study date: Study date: 12/08/2018. Study time: 00:01 AM. Signature Documentation: The Stress ECG portion of this study was interpreted by Micha Sullivan MD. Electronically signed by Micha Sullivan 12/08/2018 09:43
== END 2018-12-08 01:08 ==
PROVIDERS: PCP General Practice; Visit Provider General Practice
DX: R07.9 Chest pain, unspecified (principal); I25.10 Atherosclerotic heart disease of native coronary artery without angina pectoris; Z95.5 Presence of coronary angioplasty implant and graft; Z95.1 Presence of aortocoronary bypass graft; I10 Essential (primary) hypertension; E78.5 Hyperlipidemia, unspecified; E11.9 Type 2 diabetes mellitus without complications; Z79.4 Long term (current) use of insulin; Z87.891 Personal history of nicotine dependence
CPT/HCPCS: 93016; 93018; 93017

== ENCOUNTER → 2019-02-01 11:03 | Outpatient (BNVA) | payer MEDICARE, OTHER, SELFPAY | PROVIDERS: PCP General Practice; Referring Provider General Practice; Visit Provider Orthopaedic Surgery | DX: M75.81 Other shoulder lesions, right shoulder (principal) | CPT/HCPCS: 99213 ==

== ENCOUNTER → 2019-03-01 10:54 | Outpatient (BNVA) | payer MEDICARE, OTHER, SELFPAY | PROVIDERS: PCP General Practice; Referring Provider General Practice; Visit Provider Orthopaedic Surgery | DX: M75.81 Other shoulder lesions, right shoulder (principal) | CPT/HCPCS: 20610; 99213; J1040 ==

== ENCOUNTER 2019-03-24 08:14 | Emergency (ER) | payer MEDICARE, OTHER, SELFPAY ==
[2019-03-24] VITALS (20 sets, daily range): BP systolic 92–149; BP diastolic 53–70; PULSE 68–82; RESP 16–32; TEMP 36.4; O2SAT 91–97
--- NOTE | 2019-03-24 08:19 | DI.RAD_ITS ---
EXAM: XR CHEST 2V PA LATERAL INDICATION: cough and chest pain. COMPARISON: XR CHEST 2V PA LATERAL from 09/30/2018 TECHNIQUE: 2D digital imaging was performed. FINDINGS: Heart size appears stable. Pulmonary vasculature is within normal limits. The lungs are clear. No pleural effusion or pneumothorax is identified. Sternal wires are in place. Degenerative changes ar e seen in the spine. There are old right rib fractures. IMPRESSION: No acute pulmonary process.
--- NOTE | 2019-03-24 08:20 | W.ED.GENAD ---
Discharge Plan Disposition Patient Disposition: AGAINST MEDICAL ADVICE Condition: Stable Discharge Details Chief Complaint: Chest Pain Clinical Impression: Chest pain Primary Care Provider: Skyler Zaman ED Provider: Gaurav Banks Home Meds and New Rx's Prescriptions: No Action prednisone 5 mg tablet 5 mg PO DAILY Qty: 30 RF: 0 rosuvastatin 40 mg tablet 40 mg PO DAILY Qty: 90 RF: 3 aspirin 325 MG tablet,delayed release (DR/EC) 162 mg PO DAILY Qty: 30 RF: 0 oxybutynin chloride 10 MG tablet extended release 24hr 10 mg PO DAILY Qty: 90 RF: 4 levothyroxine 50 MCG tablet 50 mcg PO DAILY Qty: 90 RF: 4 metoprolol tartrate 25 MG tablet 25 mg PO BID Qty: 180 RF: 4 Novolog Flexpen U-100 Insulin 100 UNIT/1 ML insulin pen 10 - 25 units Sub-Q AC Qty: 90 RF: 4 Lantus Solostar U-100 Insulin 300 UNITS/3 ML insulin pen 70 units Sub-Q QPM Qty: 4 RF: 3 melatonin 3 MG tablet extended release 3 mg PO HS Qty: 90 RF: 4 (DME) FreeStyle Lite Strips strip 1 ea Miscellaneous QID Qty: 360 RF: 5 tadalafil [Cialis] 5 mg tablet 5 mg PO DAILY Qty: 90 RF: 4 amlodipine 5 mg tablet 5 mg PO DAILY Qty: 90 RF: 3 fenofibrate nanocrystallized [Tricor] 145 mg tablet 145 mg PO DAILY Qty: 90 RF: 3 (DME) pen needle, diabetic [BD Ultra-Fine Amber Pen Needle] 32 gauge x 5/32 needle 1 ea Miscellaneous QID Qty: 200 RF: 5 Medical Decision Making 68 yo male with multiple medical problems including cad s/p cabgx3 per pt 4 years ago, htn, dm, who comes in with feeling congestion and cough in the chest starting 4-5 hours ago and feels similar to his walking pneumonia he was dx'd with last week and finished azithromycin 2-3 days ago. Denies any chest pressure, radiation of pain or dyspnea and no recent travel. Is speaking in full sentences in no distress on exam with no pedal edema and no jvd and appears well systemically. Dneies pain states it feels as though he has congestion and rates his discomfort at 2/10 and declines any pain meds and took 3 81mg asa before arriving. Will obtain xray to eval for infiltrate and though symptoms don't seem typcial of acs will obtain ecg and troponin. Wells score low, will send d dimer. xray negative on my read and labs unremarkable, remains stable and apperas well. I advised I wanted to obtain deltra troponin and ekg vs observation admission but pt declined and requests to go home. He has capacity to make his own decisions and understands the risks of leaving including and permanent disability and is willing to take these risks. He understands he can return at any time if he changes his mind Differential Diagnosis Differential Diagnosis: pna, bronchitis, chf, acs Medical Records Medical records reviewed: Yes I reviewed the patient's medical records. Imaging Data Radiologic Study: Attestation: I personally reviewed and interpreted this imaging study as follows: Imaging: X-Ray My impression: no acute findings Lab Data Lab results reviewed: Yes I reviewed the patient's lab results. ECG Data Attestation: I personally reviewed and interpreted this ECG (s) as follows: Prior ECG tracings: not available for review Interpretation: sinus rhythm, rate of 79, pr 174, rbbb, no acute changes compared to prior ekg HPI General Mode of arrival: ambulatory. Date/Time Provider Initiated Documentation: 03/24/19 08:15. Limitations to Documentation: no limitations. Information obtained by: patient. History of Present Illness 68 year old M presents to the emergency department with the chief complaint of chest congestion, described as moderate, Patient started experiencing this hour(s) (5) and it has been intermittent. No relieving factors improve symptom(s), No exacerbating factors reported . Patient notes cough. Related Data Home Medications Medication Instructions Recorded Confirmed aspirin 162 mg PO DAILY #30 tab-cap 04/29/17 03/01/19 Lantus Solostar U-100 Insulin 70 units SUB-Q QPM #4 box 11/09/17 03/01/19 Novolog Flexpen U-100 Insulin 10 - 25 units SUB-Q AC #90 pen 11/09/17 03/01/19 levothyroxine 50 mcg PO DAILY #90 tab-cap 11/09/17 03/01/19 metoprolol tartrate 25 mg PO BID #180 tab-cap 11/09/17 03/01/19 oxybutynin chloride 10 mg PO DAILY #90 tab-cap 11/09/17 03/01/19 melatonin 3 mg PO HS #90 tab 11/11/17 03/01/19 blood sugar diagnostic #360 strip 02/16/18 03/01/19 tadalafil 5 mg tablet 5 mg PO DAILY #90 tab-cap 02/16/18 03/01/19 amlodipine 5 mg tablet 5 mg PO DAILY #90 tab 05/21/18 03/01/19 fenofibrate nanocrystallized 145 145 mg PO DAILY #90 tab-cap 09/24/18 03/01/19 mg tablet rosuvastatin 40 mg tablet 40 mg PO DAILY #90 tab 11/10/18 03/01/19 pen needle, diabetic 32 gauge x #200 each 11/16/18 03/01/19 prednisone 5 mg tablet 5 mg PO DAILY #30 tab 02/01/19 03/01/19 Previous Rx's Medication Instructions Recorded aspirin 162 mg PO DAILY #30 tab-cap 04/29/17 Lantus Solostar U-100 Insulin 70 units SUB-Q QPM #4 box 11/09/17 Novolog Flexpen U-100 Insulin 10 - 25 units SUB-Q AC #90 pen 11/09/17 levothyroxine 50 mcg PO DAILY #90 tab-cap 11/09/17 metoprolol tartrate 25 mg PO BID #180 tab-cap 11/09/17 oxybutynin chloride 10 mg PO DAILY #90 tab-cap 11/09/17 melatonin 3 mg PO HS #90 tab 11/11/17 blood sugar diagnostic #360 strip 02/16/18 tadalafil 5 mg tablet 5 mg PO DAILY #90 tab-cap 02/16/18 amlodipine 5 mg tablet 5 mg PO DAILY #90 tab 05/21/18 fenofibrate nanocrystallized 145 145 mg PO DAILY #90 tab-cap 09/24/18 mg tablet rosuvastatin 40 mg tablet 40 mg PO DAILY #90 tab 11/10/18 pen needle, diabetic 32 gauge x #200 each 11/16/18 prednisone 5 mg tablet 5 mg PO DAILY #30 tab 02/01/19 Allergies Allergy/AdvReac Type Severity Reaction Status Date / Time No Known Allergies Allergy Verified 03/24/19 09:33 General CHRISTIANE: 2 Review of Systems All systems reviewed & are unremarkable except as noted in HPI and below Constitutional Constitutional: Denies chills, Denies fever(s) and Denies weakness ENT Ears, Nose, Mouth, and Throat: Denies change in voice Cardiovascular Cardiovascular: Denies dyspnea Respiratory Respiratory: Denies dyspnea Gastrointestinal Gastrointestinal: Denies abdominal pain, Denies nausea and Denies vomiting Musculoskeletal Musculoskeletal: Denies joint swelling Neurologic Neurologic: Denies weakness [facility] Social History Smoking/Tobacco Use Status: Former Tobacco Use Alcohol Intake: current Alcohol Intake frequency: a few times a week Drug use: Never Substance use type: does not use Current gender identity: male Do you feel safe at home: Yes Do you feel safe in your relationship?: Yes Exam Const General: no acute distress Orientation: alert HENMT Head: normal to inspection Ears: external ears normal General nose exam: external nose normal Mouth: moist mucous membranes Eyes General: appearance normal, both eyes and all related structures Neck Neck: normal visual inspection Resp Effort & Inspection: normal respiratory effort and able to speak in complete sentences Cardio Rate: regular rate Skin General skin exam: no rashes or lesions noted Neuro General: alert and oriented x3 Extrem General: normal to inspection Psych Mental Status: mental status grossly normal
[2019-03-24 08:35] LABS: Abs Immature Grans 0.03 k/cumm (0.0-0.09); Absolute Basophil Count 0.02 k/cumm (0.0-0.2); Absolute Eosinophil Count 0.16 k/cumm (0.0-0.7); Absolute Lymphocyte Count 1.57 k/cumm (1.2-3.4); Absolute Monocyte Count 0.49 k/cumm (0.11-0.7); Absolute Neutrophil Count 4.24 k/cumm (1.2-6.7); Basophils % 0.3; Eosinophils % 2.5; HCT 37.3 % (40.0-50.0); HGB 12.3 g/dL (13.5-17.5); Immature Grans % 0.5; Lymphocytes % 24.1; Mean Corpuscular Hemoglobin 32.7 pg (27.0-33.0); Mean Corpuscular Volume 99.2 fL (80-95); Mean Platelet Volume 10.8 fL (8.0-11.0); Monocytes % 7.5; Neutrophils % 65.1; Platelet Count 313 x1000/uL (130-400); RBC 3.76 m/cumm (4.50-6.00); RBC Distribution Width 12.5 % (11.8-14.1); White Blood Cell Count 6.51 k/cumm (4.4-10.8)
[2019-03-24 08:51] LABS: PTT Activated 21.7 sec (21.0-31.4); Prothrombin Time 9.6 sec (9.3-11.0)
[2019-03-24 09:01] LABS: ALT 36 U/L (16-63); AST 30 U/L (15-37); Albumin 3.8 g/dL (3.4-5.0); Alkaline Phosphatase 105 U/L (46-116); Anion Gap 10.8 mmol/L (3-11); BUN 33 mg/dL (7-18); Bilirubin, Total 0.3 mg/dL (0.2-1.0); CO2 24.2 mmol/L (21.0-32.0); CREATININE 1.55 mg/dL (0.70-1.30); Calcium 8.7 mg/dL (8.5-10.1); Chloride 104 mmol/L (98-107); Estimated GFR 45.08 (mL/min/1.73m2); Glucose 324 mg/dL (74-106); NT-proBNP 277 pg/mL (<300); Potassium 4.3 mmol/L (3.5-5.1); Sodium 139 mmol/L (136-145); Total Protein 6.8 g/dL (6.4-8.2)
[2019-03-24] MEDS: Normal Saline Flush 10 ML SYR IVP (09:05)
[2019-03-24 09:10] LABS: D-Dimer 605 ng/mlFEU (<500)
[2019-03-24 09:14] LABS: Troponin I < 0.05 ng/Ml (<0.06)
== END 2019-03-24 10:05 | disposition left against medical advice (07) ==
PROVIDERS: Emergency Provider Emergency Medicine; PCP General Practice
DX: R07.9 Chest pain, unspecified (principal); R09.89 Other specified symptoms and signs involving the circulatory and respiratory systems; Z53.29 Procedure and treatment not carried out because of patient's decision for other reasons; I25.10 Atherosclerotic heart disease of native coronary artery without angina pectoris; Z95.1 Presence of aortocoronary bypass graft; I10 Essential (primary) hypertension; E11.9 Type 2 diabetes mellitus without complications; Z79.4 Long term (current) use of insulin
CPT/HCPCS: 36415; 80053; 93005; 99285; 71046; 83880; 84484; 85025; 85379; 85610; 85730; 93010

== ENCOUNTER 2019-03-24 10:44 | Emergency (ER) | payer MEDICARE, OTHER, SELFPAY ==
[2019-03-24 10:49] VITALS: BP 133/54; PULSE 73; RESP 20; TEMP 36.5; O2SAT 98
--- NOTE | 2019-03-24 11:08 | W.ED.GENAD ---
Discharge Plan Disposition Patient Disposition: HOME Discharge Details Chief Complaint: GenMedical Clinical Impression: Chest pain Primary Care Provider: Skyler Zaman ED Provider: Gaurav Banks Home Meds and New Rx's Prescriptions: Continued prednisone 5 mg tablet 5 mg PO DAILY Qty: 30 RF: 0 rosuvastatin 40 mg tablet 40 mg PO DAILY Qty: 90 RF: 3 aspirin 325 MG tablet,delayed release (DR/EC) 162 mg PO DAILY Qty: 30 RF: 0 oxybutynin chloride 10 MG tablet extended release 24hr 10 mg PO DAILY Qty: 90 RF: 4 levothyroxine 50 MCG tablet 50 mcg PO DAILY Qty: 90 RF: 4 metoprolol tartrate 25 MG tablet 25 mg PO BID Qty: 180 RF: 4 Novolog Flexpen U-100 Insulin 100 UNIT/1 ML insulin pen 10 - 25 units Sub-Q AC Qty: 90 RF: 4 Lantus Solostar U-100 Insulin 300 UNITS/3 ML insulin pen 70 units Sub-Q QPM Qty: 4 RF: 3 melatonin 3 MG tablet extended release 3 mg PO HS Qty: 90 RF: 4 (DME) FreeStyle Lite Strips strip 1 ea Miscellaneous QID Qty: 360 RF: 5 tadalafil [Cialis] 5 mg tablet 5 mg PO DAILY Qty: 90 RF: 4 amlodipine 5 mg tablet 5 mg PO DAILY Qty: 90 RF: 3 fenofibrate nanocrystallized [Tricor] 145 mg tablet 145 mg PO DAILY Qty: 90 RF: 3 (DME) pen needle, diabetic [BD Ultra-Fine Amber Pen Needle] 32 gauge x 5/32 needle 1 ea Miscellaneous QID Qty: 200 RF: 5 Discharge Instructions Instructions: Chest Pain (ED) Additional Instructions: follow up with your primary care provider within 1 week and discuss arranging for your stress testing if you have worsening pain, difficulty breathing or fevers return to the emergency department Medical Decision Making 68 yo male who left AMA as he did not want to wait for second troponin/ekg after coming in with several days of chest congestion comes in at request of his pcp. Denies any pain now, is laughing and speaking in full sentences in no distress. Denies radiation of his pain and describes it as a congestion as when he had walking pneumonia a week ago treated with azithromycin. his labs earlier showed no acute changes and xray was unremarkable. Will dontae [place] troponin though his symptoms seem more like a viral uri. D dimer earlier negative for his age as well. pt remains pain free and troponin/ecg unremarkable. He still declines admission given lack of pain. Stressed importance of f/u with pcp within a week and having stress testing Differential Diagnosis Differential Diagnosis: bronchitis, pna, acs ECG Data Attestation: I personally reviewed and interpreted this ECG (s) as follows: Prior ECG tracings: available for review Interpretation: sinus rhythm, rbbb, rate of 71, pr 248 HPI General Mode of arrival: ambulatory. Date/Time Provider Initiated Documentation: 03/24/19 10:45. Limitations to Documentation: no limitations. Information obtained by: patient. History of Present Illness 68 year old M presents to the emergency department with the chief complaint of chest congestion, described as moderate, Patient reports no radiation. Patient started experiencing this day(s) (3) and it has been intermittent. No relieving factors improve symptom(s), No exacerbating factors reported . Patient notes cough. Related Data Home Medications Medication Instructions Recorded Confirmed aspirin 162 mg PO DAILY #30 tab-cap 04/29/17 03/24/19 Lantus Solostar U-100 Insulin 70 units SUB-Q QPM #4 box 11/09/17 03/24/19 Novolog Flexpen U-100 Insulin 10 - 25 units SUB-Q AC #90 pen 11/09/17 03/24/19 levothyroxine 50 mcg PO DAILY #90 tab-cap 11/09/17 03/24/19 metoprolol tartrate 25 mg PO BID #180 tab-cap 11/09/17 03/24/19 oxybutynin chloride 10 mg PO DAILY #90 tab-cap 11/09/17 03/24/19 melatonin 3 mg PO HS #90 tab 11/11/17 03/24/19 blood sugar diagnostic #360 strip 02/16/18 03/24/19 tadalafil 5 mg tablet 5 mg PO DAILY #90 tab-cap 02/16/18 03/24/19 amlodipine 5 mg tablet 5 mg PO DAILY #90 tab 05/21/18 03/24/19 fenofibrate nanocrystallized 145 145 mg PO DAILY #90 tab-cap 09/24/18 03/24/19 mg tablet rosuvastatin 40 mg tablet 40 mg PO DAILY #90 tab 11/10/18 03/24/19 pen needle, diabetic 32 gauge x #200 each 11/16/18 03/24/19 prednisone 5 mg tablet 5 mg PO DAILY #30 tab 02/01/19 03/24/19 Previous Rx's Medication Instructions Recorded aspirin 162 mg PO DAILY #30 tab-cap 04/29/17 Lantus Solostar U-100 Insulin 70 units SUB-Q QPM #4 box 11/09/17 Novolog Flexpen U-100 Insulin 10 - 25 units SUB-Q AC #90 pen 11/09/17 levothyroxine 50 mcg PO DAILY #90 tab-cap 11/09/17 metoprolol tartrate 25 mg PO BID #180 tab-cap 11/09/17 oxybutynin chloride 10 mg PO DAILY #90 tab-cap 11/09/17 melatonin 3 mg PO HS #90 tab 11/11/17 blood sugar diagnostic #360 strip 02/16/18 tadalafil 5 mg tablet 5 mg PO DAILY #90 tab-cap 02/16/18 amlodipine 5 mg tablet 5 mg PO DAILY #90 tab 05/21/18 fenofibrate nanocrystallized 145 145 mg PO DAILY #90 tab-cap 09/24/18 mg tablet rosuvastatin 40 mg tablet 40 mg PO DAILY #90 tab 11/10/18 pen needle, diabetic 32 gauge x #200 each 11/16/18 prednisone 5 mg tablet 5 mg PO DAILY #30 tab 02/01/19 Allergies Allergy/AdvReac Type Severity Reaction Status Date / Time No Known Allergies Allergy Verified 03/24/19 10:57 General Stated Complaint: GenMedical CHRISTIANE: 3 Review of Systems All systems reviewed & are unremarkable except as noted in HPI and below Constitutional Constitutional: Denies chills, Denies fever(s) and Denies weakness Cardiovascular Cardiovascular: Denies dyspnea Respiratory Respiratory: Denies dyspnea Gastrointestinal Gastrointestinal: Denies abdominal pain, Denies nausea and Denies vomiting Musculoskeletal Musculoskeletal: Denies joint swelling Neurologic Neurologic: Denies weakness Psychiatric Psychiatric: Denies depression [facility] Social History Smoking/Tobacco Use Status: Former Tobacco Use Alcohol Intake: current Alcohol Intake frequency: a few times a week Drug use: Never Substance use type: does not use Current gender identity: male Do you feel safe at home: Yes Do you feel safe in your relationship?: Yes Exam Const General: no acute distress Orientation: alert HENMT Head: normal to inspection Ears: external ears normal General nose exam: external nose normal Mouth: moist mucous membranes Eyes General: appearance normal, both eyes and all related structures Neck Neck: normal visual inspection Resp Effort & Inspection: normal respiratory effort and able to speak in complete sentences Cardio Rate: regular rate Skin General skin exam: no rashes or lesions noted Neuro General: alert and oriented x3 Extrem General: normal to inspection Psych Mental Status: mental status grossly normal Course Vital Signs Vital signs: Vital Signs Temperature 36.5 C 03/24/19 10:49 Pulse 73 03/24/19 10:49 Respiratory Rate 20 03/24/19 10:49 Blood Pressure 133/54 L 03/24/19 10:49 Pulse Oximetry 98 03/24/19 10:49 Temperature 36.5 C 03/24/19 10:49 Temperature Source Skin 03/24/19 10:49 Pulse 73 03/24/19 10:49 Respiratory Rate 20 03/24/19 10:49 Respiratory Effort Non-Labored 03/24/19 10:55 Blood Pressure 133/54 L 03/24/19 10:49 Blood Pressure Position Sitting 03/24/19 10:49 Pulse Oximetry 98 03/24/19 10:49 Oxygen Delivery Method Room Air 03/24/19 10:49 Oxygen Flow Rate 0 03/24/19 10:49 Pain Level 0 03/24/19 10:49
[2019-03-24 11:45] VITALS: PULSE 73; O2SAT 97
[2019-03-24 11:46] VITALS: BP 143/61; PULSE 72; PULSE 73; O2SAT 98
[2019-03-24 11:50] VITALS: PULSE 69; O2SAT 94
[2019-03-24 12:00] VITALS: BP 143/68; PULSE 68; O2SAT 97
[2019-03-24 12:01] VITALS: O2SAT 96
[2019-03-24 12:01] LABS: Troponin I < 0.05 ng/Ml (<0.06)
--- NOTE | 2019-03-24 16:39 | NUR.NOTE ---
Nursing Note: Referral faxed to PCP for follow up. Yadira Shahid.
== END 2019-03-24 12:14 | disposition home or self-care (01) ==
PROVIDERS: Emergency Provider Emergency Medicine; PCP General Practice
DX: R07.9 Chest pain, unspecified (principal); R09.89 Other specified symptoms and signs involving the circulatory and respiratory systems; Z87.891 Personal history of nicotine dependence
CPT/HCPCS: 36415; 80053; 93005; 99284; 99285; 71046; 83880; 84484; 85025; 85379; 85610; 85730; 93010

== ENCOUNTER 2019-04-05 00:26 | Outpatient (CLI) | payer MEDICARE, OTHER, SELFPAY ==
--- NOTE | 2019-04-05 10:34 | DI.NM_ITS ---
APPROVED REPORT Exam: Pharmacologic Patient Location: Out-Patient Room/Bed: Stress Nurse: Kaern Navarro RN BMI: 40.88 Baseline Rhythm: First degree heart block with IA interval of 0.25 Indications: Patient presented to the ER on 03/24/19 with chest pain. When patient asked today why he is was doing this test, he responded with I don't know, you have that information in your records. But he did state he is on the tail end of walking pneumonia and has had some chest congestion. Medical History Cardiac Medications: Rosuvastatin, Aspirin, Metoprolol Tartrate, Amlodipine, Tricor Allergies: No known drug allergies Cardiac Risk Factors: HTN, Hyperlipidemia, DM Previous Cardiac Procedures: CABG Pretest Chest Pain Characteristics: Mild chest pressure Exercise History: Sedentary Lung Sounds: Clear to auscultation Heart Sounds: Regular Stress Test Details Test: Pharmacologic stress testing performed using 0.4 mg of regadenoson per 5 mL given IV over 10 s econds. Nuclear Acquisition: Rest Tc-99m/Stress Tc-99m 1 day Rest Isotope: Tc-99m Sestamibi. Dose: 15.2 Date: 04/05/2019 Injection Time: 0830 Stress Isotope: Tc-99m Sestamibi. Dose: 45.6 Date: 04/05/2019 Injection Time: 1045 HR Max Heart Rate (APMHR): 154 bpm Resting HR Supine: 66 bpm Target HR (85% APMHR): 130 bpm Max HR Achieved: 88 bpm % of APMHR: 57 HR response to stress: Normal HR response to stress BP Resting BP Supine: 170/80 mmHg Max BP: 188/82 mmHg BP response to stress: Normal blood pressure response to stress. ECG Resting ECst degree AV block, RBBB ST Change: Normal Ectopy: Occasional PAC's post Lexiscan injection. Stress ECG: Sinus Rhythm ST Change: Normal Arrhythmia: None Stress ECG Conclusion 1. There was no ischemia noted on the ECG portion of the stress exam. Protocol Used: Regadenoson Stress Test Summary STAGE HR BP Symptoms NOTES Supine 66 170/80 Standing 1 min 71 178/90 2 min 3 min 79 168/82 4 min 5 min 6 min 75 188/82 7 min 8 min 9 min 71 160/88 10 min 1 min recovery 3 min recovery 6 min recovery MPI Conclusion There was a significant amount of attenuation which affected the interpretation of the study. With attenuation correction there was no evidence of reversible ischemia on the imaging portion of th is exam. This represents a normal myocardial perfusion exam. Radiologist Interpretation Radiologist agrees with Top Waddy's Interpretation. Radiologist Interpretation by: Wan Medeiros MD Interpretation Date/Time: 04/08/2019 13:40:03
[2019-04-05] MEDS: Regadenoson 0.4 MG/5 ML SYR IVP (11:33)
== END 2019-04-05 00:46 ==
PROVIDERS: PCP General Practice; Visit Provider General Practice
DX: R07.89 Other chest pain (principal); I10 Essential (primary) hypertension; E78.5 Hyperlipidemia, unspecified; E11.9 Type 2 diabetes mellitus without complications; I25.10 Atherosclerotic heart disease of native coronary artery without angina pectoris; Z95.1 Presence of aortocoronary bypass graft
CPT/HCPCS: 78452; 93016; 93018; 93017; J2785

== ENCOUNTER 2019-05-09 10:09 | Outpatient (CLI) | payer MEDICARE, OTHER, SELFPAY ==
--- NOTE | 2019-05-09 13:00 | DI.RAD_ITS ---
EXAM: XR CHEST 2V PA LATERAL INDICATION: Fever, cough, lethargy, R05. COMPARISON: XR CHEST 2V PA LATERAL from 03/24/2019 TECHNIQUE: 2D digital imaging was performed. FINDINGS: The heart is mildly enlarged, unchanged. There are sternal wires and mediastinal clips. There are o ld right rib deformities. The lungs appear clear. IMPRESSION: Cardiomegaly. No evidence of pneumonia or CHF.
== END 2019-05-09 10:29 ==
PROVIDERS: PCP General Practice; Visit Provider Family Medicine
DX: R50.9 Fever, unspecified (principal); R05 Cough; R53.83 Other fatigue; I51.7 Cardiomegaly
CPT/HCPCS: 71046

== ENCOUNTER 2019-05-19 09:14 | Emergency (ER) | payer MEDICARE, OTHER, SELFPAY ==
[2019-05-19 09:18] VITALS: BP 162/60; PULSE 90; RESP 16; TEMP 36.7; O2SAT 98
--- NOTE | 2019-05-19 09:32 | ED.GENADUL_ITS ---
Discharge Plan Disposition Patient Disposition: HOME Condition: Stable Discharge Details Chief Complaint: RespSymp Clinical Impression: Bronchitis Primary Care Provider: Ole Arvizu ED Provider: Roe Rodrigues Home Meds and New Rx's Prescriptions: New azithromycin 250 mg tablet See Rx Instructions .ROUTE .COMPLEX Qty: 6 RF: 0 Continued prednisone 20 mg tablet 20 mg PO DAILY Qty: 5 RF: 0 rosuvastatin 40 mg tablet 40 mg PO DAILY Qty: 90 RF: 3 aspirin 325 MG tablet,delayed release (DR/EC) 162 mg PO DAILY Qty: 30 RF: 0 oxybutynin chloride 10 MG tablet extended release 24hr 10 mg PO DAILY Qty: 90 RF: 4 levothyroxine 50 MCG tablet 50 mcg PO DAILY Qty: 90 RF: 4 metoprolol tartrate 25 MG tablet 25 mg PO BID Qty: 180 RF: 4 Novolog Flexpen U-100 Insulin 100 UNIT/1 ML insulin pen 10 - 25 units Sub-Q AC Qty: 90 RF: 4 Lantus Solostar U-100 Insulin 300 UNITS/3 ML insulin pen 70 units Sub-Q QPM Qty: 4 RF: 3 melatonin 3 MG tablet extended release 3 mg PO HS Qty: 90 RF: 4 (DME) FreeStyle Lite Strips strip 1 ea Miscellaneous QID Qty: 360 RF: 5 tadalafil [Cialis] 5 mg tablet 5 mg PO DAILY Qty: 90 RF: 4 amlodipine 5 mg tablet 5 mg PO DAILY Qty: 90 RF: 3 fenofibrate nanocrystallized [Tricor] 145 mg tablet 145 mg PO DAILY Qty: 90 RF: 3 (DME) pen needle, diabetic [BD Ultra-Fine Amber Pen Needle] 32 gauge x 5/32 needle 1 ea Miscellaneous QID Qty: 200 RF: 5 Discharge Instructions Instructions: Acute Bronchitis (ED) Additional Instructions: Follow-up in clinic for recheck if not improving in 1 week's time. Continue to rest and push fluids. Return if you have shortness of breath, worsening cough, or any other acute concerns. Medical Decision Making Pleasant 68-year-old male, former patient of Dr. Fernandez, recently reestablished care with [facility] internal medicine. States that he has had 3 to 4 weeks of progressive cough with production of green sputum. He was seen in clinic, was referred for unremarkable outpatient chest x-ray on May 09, was given a burst of oral prednisone 4 days with some minimal improvement. States that the cough and production of green sputum has been persistent and associated with gener alized malaise. His exam is notable for right midlung field scant rhonchi. His vital signs are normal including oxygenation and he is in no acute distress. Referred for chest x-ray that does not show focal consolidation. He may have an atypical microorganism, he certainly has tolerated azithromycin well in the past and this is adequate coverage. Given his persistent production of green sputum that he feels is worsening, I will prescribe him a Z-Jame. He will follow-up in clinic if not improving in 1 week's time. HPI General Mode of arrival: ambulatory . Date/Time Provider Initiated Documentation: 05/19/19 09:15 . Limitations to Documentation: no limitations . Information obtained by: patient . History of Present Illness 68 year old M presents to the emergency department with the chief complaint of Cough, sputum production, described as mild, and is localized to the chest. Patient started experiencing this week(s) and it has been constant. No relieving factors improve symptom(s), No exacerbating factors reported . Patient notes cough and malaise; denies fever/chills and shortness of breath. Patient did receive the following treatments prior to arrival, other (Finished prednisone burst) Related Data Home Medications Medication Instructions Recorded Confirmed aspirin 162 mg PO DAILY #30 tab-cap 04/29/17 05/19/19 Lantus Solostar U-100 Insulin 70 units SUB-Q QPM #4 box 11/09/17 05/19/19 Novolog Flexpen U-100 Insulin 10 - 25 units SUB-Q AC #90 pen 11/09/17 05/19/19 levothyroxine 50 mcg PO DAILY #90 tab-cap 11/09/17 05/19/19 metoprolol tartrate 25 mg PO BID #180 tab-cap 11/09/17 05/19/19 oxybutynin chloride 10 mg PO DAILY #90 tab-cap 11/09/17 05/19/19 melatonin 3 mg PO HS #90 tab 11/11/17 05/19/19 blood sugar diagnostic #360 strip 02/16/18 05/19/19 tadalafil 5 mg tablet 5 mg PO DAILY #90 tab-cap 02/16/18 05/19/19 amlodipine 5 mg tablet 5 mg PO DAILY #90 tab 05/21/18 05/19/19 fenofibrate nanocrystallized 145 145 mg PO DAILY #90 tab-cap 09/24/18 05/19/19 mg tablet rosuvastatin 40 mg tablet 40 mg PO DAILY #90 tab 11/10/18 05/19/19 pen needle, diabetic 32 gauge x #200 each 11/16/18 05/19/19 prednisone 20 mg tablet 20 mg PO DAILY #5 tab 05/09/19 05/19/19 azithromycin See Rx Instructions .ROUTE 05/19/19 .COMPLEX #6 tab Previous Rx's Medication Instructions Recorded aspirin 162 mg PO DAILY #30 tab-cap 04/29/17 Lantus Solostar U-100 Insulin 70 units SUB-Q QPM #4 box 11/09/17 Novolog Flexpen U-100 Insulin 10 - 25 units SUB-Q AC #90 pen 11/09/17 levothyroxine 50 mcg PO DAILY #90 tab-cap 11/09/17 metoprolol tartrate 25 mg PO BID #180 tab-cap 11/09/17 oxybutynin chloride 10 mg PO DAILY #90 tab-cap 11/09/17 melatonin 3 mg PO HS #90 tab 11/11/17 blood sugar diagnostic #360 strip 02/16/18 tadalafil 5 mg tablet 5 mg PO DAILY #90 tab-cap 02/16/18 amlodipine 5 mg tablet 5 mg PO DAILY #90 tab 05/21/18 fenofibrate nanocrystallized 145 145 mg PO DAILY #90 tab-cap 09/24/18 mg tablet rosuvastatin 40 mg tablet 40 mg PO DAILY #90 tab 11/10/18 pen needle, diabetic 32 gauge x #200 each 11/16/18 prednisone 20 mg tablet 20 mg PO DAILY #5 tab 05/09/19 azithromycin See Rx Instructions .ROUTE 05/19/19 .COMPLEX #6 tab Allergies Allergy/AdvReac Type Severity Reaction Status Date / Time No Known Allergies Allergy Verified 05/19/19 09:23 General Stated Complaint: RespSymp CHRISTIANE: 3 Review of Systems Narrative: Denies shortness of breath or chest pain. Cough with production of green sputum. Finished prednisone. No antibiotics. 6 systems reviewed and otherwise negative FOR[facility]LY [facility], [facility] Medical History Diabetes mellitus type 2 in obese Essential hypertension Hyperlipidemia Hypothyroidism Obesity (BMI 30-39.9) Surgical History Appendectomy Colonoscopy - IV Sedation Coronary Stent (09/26/16) Extraction of cataract 11/23/14; DR. GOINS; RIGHT EYE 12/07/14; DR. GOINS; LEFT EYE Fracture, Open Treatment ORIF-LEFT SYNDESMOSIS WITH TWO SCREWS Repair of umbilical hernia Social History Smoking/Tobacco Use Status: Former Tobacco Use Alcohol Intake: current Alcohol Intake frequency: a few times a week Drug use: Never Substance use type: does not use Household members: spouse Number of Children: 3 number of grandchildren: 3 Communication Needs: None Current gender identity: male What is your relationship status?: Panel score (0-1 are the most socially isolated patients): 1 What type of physical activity do you participate in: none Seatbelt use: always Drive intox 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 Pleasant, well groomed, interactive. HEAD: Normocephalic, atraumatic ENT: Mucous membranes moist, oropharynx unremarkable, External ear exam unremarkable EYES: PERRL, EOMI NECK: Full ROM, no FATEMEH, no menigismus CHEST/RESP: Nontender, right midlung field with scant rhonchi, otherwise clear without wheeze or rales. CARDIOVASCULAR: RRR, no murmur, rub dino. 2+ Rad pulse bilateral ABDOMEN: Soft, nontender, no mass. +Bowel sounds EXT: Full ROM, no edema, no rash Neuro: Grossly normal neurologic exam, conversant, interactive. Psych: Speech fluent, thoughts congruent, affect normal Course Vital Signs Vital signs: Vital Signs Temperature 36.7 C 05/19/19 09:18 Pulse 90 05/19/19 09:18 Respiratory Rate 16 05/19/19 09:18 Blood Pressure 162/60 H 05/19/19 09:18 Pulse Oximetry 98 05/19/19 09:18 Temperature 36.7 C 05/19/19 09:18 Temperature Source Temporal Artery Scan 05/19/19 09:18 Pulse 90 05/19/19 09:18 Respiratory Rate 16 05/19/19 09:18 Respiratory Effort Non-Labored 05/19/19 09:22 Blood Pressure 162/60 H 05/19/19 09:18 Blood Pressure Position Sitting 05/19/19 09:18 Pulse Oximetry 98 05/19/19 09:18 Oxygen Delivery Method Room Air 05/19/19 09:18 Oxygen Flow Rate 0 05/19/19 09:18 Pain Level 0 05/19/19 09:18
--- NOTE | 2019-05-19 09:45 | DI.RAD_ITS ---
EXAM: XR CHEST 2V PA LATERAL INDICATION: ? RML rhonchi, persistent cough, Sputum. COMPARISON: No exams were available for comparison TECHNIQUE: 2D digital imaging was performed. FINDINGS: The heart is enlarged. The patient is status post CABG. There are old right rib fractures. Lungs a ppear clear. IMPRESSION: No acute abnormality.
== END 2019-05-19 09:51 | disposition home or self-care (01) ==
PROVIDERS: Emergency Provider Emergency Medicine; PCP Family Medicine
DX: J20.9 Acute bronchitis, unspecified (principal); R53.81 Other malaise; E11.9 Type 2 diabetes mellitus without complications; Z79.4 Long term (current) use of insulin; I10 Essential (primary) hypertension
CPT/HCPCS: 99283; 71046

== ENCOUNTER 2019-05-27 11:20 | Observation (INO) | payer MEDICARE, OTHER, SELFPAY ==
[2019-05-27] VITALS (56 sets, daily range): BP systolic 124–151; BP diastolic 47–79; PULSE 62–89; RESP 11–28; TEMP 36.3–36.7; O2SAT 92–99
--- NOTE | 2019-05-27 11:26 | ED.GENADUL_ITS ---
Discharge Plan Disposition Patient Disposition: [facility] INPATIENT Condition: Stable Discharge Details Chief Complaint: Chest Pain Clinical Impression: Chest pain Admit Date/Time: 05/27/19 15:04 Admit Provider: Virginia Angulo Attending Provider: Virginia Angulo Primary Care Provider: Gina Bravo ED Provider: Arabella Doe Medical Decision Making 1144am: 68-year-old male presents with midsternal chest pain onset 1 hour prior to arrival. Denies shortness of breath. Associated with nausea. Does have a history of a triple bypass in 2017. Initial work-up includes EKG serial troponins, chest x-ray, aspirin, and labs. Heart score 5 Moderate risk EKG obtained and reviewed by Dr. Arlene MEDEL which shows a right bundle branch block WA interval 250 QT 396 QRS axis 63 and a rate of 76. No ST elevation or depression noted old EKG From Mar 2017 reviewed and is largely unchanged. Patient resting, awaiting results and Chest x-ray 1250: Initial Troponin negative, elevated BNP at 599 and Glucose 332 EXAM: XR PORTABLE CHEST AP CLINICAL HISTORY: Chest pain TECHNIQUE: COMPARISON: XR CHEST 2V PA LATERAL from 09/30/2018 XR CHEST 2V PA LATERAL from 03/24/2019 XR CHEST 2V PA LATERAL from 05/09/2019 XR CHEST 2V PA LATERAL from 05/19/2019 FINDINGS: The heart is enlarged. There are multiple sternal sutures. Lungs appear generally clear. No pleural effusion identified on this frontal film. Old healed rib fractures noted on the right. IMPRESSION: No evidence of acute process. Ordered By: Arabella Doe CC: [id number]: Repeat EKG shows some T wave changes. Flattening of T waves noted in leads II, III, V1 and V2. Repeat troponin is negative. Spoke with Dr. Blake regarding admission for observation and stress test she recommends IV magnesium 4 g IV piggyback and consult with cardiology at [facility]. She is not refusing admission but would like, cardiology consult first. Will contact [facility] speak with cardiology. 4061: Spoke with Dr. Judah WALKER with cardiology at [facility] discussed patient case, labs, chest x-ray, and EKG. He suggested possible heparinization, new stress test, observation. If any worsening he is willing to consult with hospitalist if patient needs further evaluation and treatment. Will relay message to Dr. Blake with plans for hospital admission. HPI General Mode of arrival: ambulatory . Date/Time Provider Initiated Documentation: 05/27/19 11:25 . Information obtained by: patient . History of Present Illness with intensity rated at 5. HPI Narrative: 68-year-old male presents with midsternal chest pain started approximately 1 hour prior to arrival. Rates a 5 out of 10. No shortness of breath. Has had a cough and a recent pneumonia diagnosis about a month ago which was treated with a Z-Jame. Associated symptoms include nausea. No vomiting no diarrhea. Patient does have a history of a triple bypass in 2017. Previous smoker. Does have a history of type 2 diabetes. Related Data Home Medications Medication Instructions Recorded Confirmed Lantus Solostar U-100 Insulin 70 units SUB-Q QPM #4 box 11/09/17 05/27/19 insulin aspart U-100 [Novolog 10 - 25 units SUB-Q AC #90 pen 11/09/17 05/27/19 Flexpen U-100 Insulin] levothyroxine 50 mcg PO DAILY #90 tab-cap 11/09/17 05/27/19 metoprolol tartrate 25 mg PO BID #180 tab-cap 11/09/17 05/27/19 oxybutynin chloride 10 mg PO DAILY #90 tab-cap 11/09/17 05/27/19 melatonin 3 mg PO HS #90 tab 11/11/17 05/27/19 blood sugar diagnostic #360 strip 02/16/18 05/19/19 tadalafil 5 mg tablet 5 mg PO DAILY #90 tab-cap 02/16/18 05/27/19 amlodipine 5 mg tablet 5 mg PO DAILY #90 tab 05/21/18 05/27/19 fenofibrate nanocrystallized 145 145 mg PO DAILY #90 tab-cap 09/24/18 05/27/19 mg tablet rosuvastatin 40 mg tablet 40 mg PO DAILY #90 tab 11/10/18 05/27/19 pen needle, diabetic 32 gauge x #200 each 11/16/18 05/19/19 aspirin 325 mg PO DAILY 05/27/19 05/27/19 Previous Rx's Medication Instructions Recorded Lantus Solostar U-100 Insulin 70 units SUB-Q QPM #4 box 11/09/17 insulin aspart U-100 [Novolog 10 - 25 units SUB-Q AC #90 pen 11/09/17 Flexpen U-100 Insulin] levothyroxine 50 mcg PO DAILY #90 tab-cap 11/09/17 metoprolol tartrate 25 mg PO BID #180 tab-cap 11/09/17 oxybutynin chloride 10 mg PO DAILY #90 tab-cap 11/09/17 melatonin 3 mg PO HS #90 tab 11/11/17 blood sugar diagnostic #360 strip 02/16/18 tadalafil 5 mg tablet 5 mg PO DAILY #90 tab-cap 02/16/18 amlodipine 5 mg tablet 5 mg PO DAILY #90 tab 05/21/18 fenofibrate nanocrystallized 145 145 mg PO DAILY #90 tab-cap 09/24/18 mg tablet rosuvastatin 40 mg tablet 40 mg PO DAILY #90 tab 11/10/18 pen needle, diabetic 32 gauge x #200 each 11/16/18 Allergies Allergy/AdvReac Type Severity Reaction Status Date / Time No Known Allergies Allergy Verified 05/27/19 11:51 General CHRISTIANE: 3 Review of Systems Narrative: Constitutional: Negative for weight loss, alert and oriented, well groomed, obese body habitus, appears comfortable. HEENT: Denies trauma, headaches, blurry vision, nasal discharge, sore throat, trouble swallowing. Chest: Denies, palpitations, irregular rhythm, hypertension. Positive chest pain Respiratory: Denies Shortness of breath, cough, hemoptysis. GI: Denies abdominal pain, vomiting, diarrhea, constipation. Positive nausea : Denies dysuria, hematuria, flank pain, vaginal bleeding, rectal bleeding. Neuro: Denies dizziness, blurry vision, weakness, syncope, headache or facial numbness. Hematologic: Denies easy bruising, intolerance to heat or cold, hair loss. 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 Atypical chest pain (Acute 06/22/14) a. ? cardiac in origina vs. related to untreated sleep apnea Benign non-nodular prostatic hyperplasia with lower urinary tract symptoms (Acute 06/27/15) BPH w urinary obs/LUTS (Acute 03/12/17) Bursitis of shoulder, right, adhesive (Acute 04/06/15) Cervical disc disorder with myelopathy (Acute) right arm Chest pain (Acute) neg. Thallium; PAD/reflux-resloved w/ Zantac Chronic and recurrent low back pain (Chronic) L4-[address] scan in 1993, recurrent since then intermittently. Chronic renal insufficiency (Chronic) Baseline creatinine 1.3, today 1.4. Current use of insulin (Chronic) Depressive disorder (Acute) marital issues Diabetes mellitus type 2 in obese Diabetes mellitus, type II (Chronic) a. poorly controlled Dyslipidemia (Chronic) Elevated TSH (Acute 06/22/14) Erectile dysfunction of organic origin (Acute 08/07/15) Essential hypertension Essential hypertension (Acute 01/31/13) responsive to exercise Frequency of urination (Acute 06/27/15) H/O renal calculi (Chronic) Hyperlipidemia Hyperlipidemia (Acute 08/17/12) Hypertension (Chronic) Hypomagnesemia (Acute 06/22/14) Only 1.0 in the ER today. Hypotension due to drugs (Acute) Hypothyroidism Hypothyroidism (acquired) (Acute) Kidney stone (Acute) calcium oxylate Left elbow contusion (Acute) Low back pain (Acute) L4-[address] Maisonneuve fracture of left fibula (Acute 05/07/16) Nocturnal hypoxemia (Acute) Obesity (Acute) Obesity (BMI 30-39.9) Obesity, Class II, BMI 35-39.9 (Chronic) BMI of 36.3. He has kept his weight stable for the last two years. Organic sleep apnea, unspecified (Acute) MERRITT (obstructive sleep apnea) (Chronic) untreated nighttime episodes of sob Pipe smoker (Chronic) Sedentary lifestyle (Chronic) Sensorineural hearing loss, bilateral (Acute 02/15/15) Sexual function problem (Acute) atrophic testicles, testosterone RX Smoker (Acute) Tendinitis of right shoulder (Acute) Type II diabetes mellitus, uncontrolled (Acute) Umbilical hernia (Chronic) Recurrent x 2, repaired x 3. Umbilical hernia (Acute) recurrent Surgical History Appendectomy Colonoscopy - IV Sedation Coronary Stent (09/26/16) Extraction of cataract 11/23/14; DR. GOINS; RIGHT EYE 12/07/14; DR. GOINS; LEFT EYE Fracture, Open Treatment ORIF-LEFT SYNDESMOSIS WITH TWO SCREWS History of cataract removal with insertion of prosthetic lens (Inactive 11/23/14) History of umbilical hernia repair (Inactive) Repair of umbilical hernia Status post appendectomy (Inactive) Status post coronary artery bypass with autogenous graft, three grafts (Inactive 03/12/17) Status post coronary artery stent placement (Inactive 09/26/16) One vessel for unstable angina Family History Father Diabetes Dementia Neoplasm PANCREATIC Social History Smoking/Tobacco Use Status: Former Tobacco Use Alcohol Intake: current Alcohol Intake frequency: a few times a week Drug use: Never Substance use type: does not use Household members: spouse Number of Children: 3 number of grandchildren: 3 Communication Needs: None Current gender identity: male What is your relationship status?: Panel score (0-1 are the most socially isolated patients): 1 What type of physical activity do you participate in: none Seatbelt use: always Drive 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 Working smoke detector in home: No Fire extinguisher in home: No Carbon monox detector in home: No Do you feel safe at home: Yes Do you feel safe in your relationship?: Yes Exam Const General: cooperative and comfortable Nutritional Appearance: obese Orientation: alert, awake and oriented x3 Chest Chest: other (Midline surgical scar) Resp Effort & Inspection: normal respiratory effort and able to speak in complete sentences Auscultation: clear to auscultation bilaterally, no rales, no rhonchi and no wheezes Cardio Rate: regular rate Rhythm: regular rhythm Heart Sounds: S1 normal and S2 normal GI Inspection: normal to inspection Palpation: soft Auscultation: normal bowel sounds
[2019-05-27] MEDS: Aspirin 81 MG CHEW 324 MG CH (11:33)
[2019-05-27 12:04] LABS: Abs Immature Grans 0.03 k/cumm (0.0-0.09); Absolute Basophil Count 0.03 k/cumm (0.0-0.2); Absolute Eosinophil Count 0.11 k/cumm (0.0-0.7); Absolute Lymphocyte Count 1.55 k/cumm (1.2-3.4); Absolute Monocyte Count 0.71 k/cumm (0.11-0.7); Absolute Neutrophil Count 5.67 k/cumm (1.2-6.7); Basophils % 0.4; Eosinophils % 1.4; HCT 35.9 % (40.0-50.0); Immature Grans % 0.4 %; Lymphocytes % 19.1; Mean Corp. HGB Concentration 33.4 g/dL (32.0-36.0); Mean Corpuscular Hemoglobin 32.7 pg (27.0-33.0); Mean Corpuscular Volume 97.8 fL (80-95); Mean Platelet Volume 11.1 fL (8.0-11.0); Monocytes % 8.8; Neutrophils % 69.9; Platelet Count 308 x1000/uL (130-400); RBC 3.67 m/cumm (4.50-6.00); RBC Distribution Width 12.5 % (11.8-14.1)
[2019-05-27 12:20] LABS: ALT 30 U/L (16-63); AST 31 U/L (15-37); Albumin 3.6 g/dL (3.4-5.0); Alkaline Phosphatase 98 U/L (46-116); Anion Gap 11.8 mmol/L (3-11); BUN 27 mg/dL (7-18); Bilirubin, Total 0.3 mg/dL (0.2-1.0); CO2 25.2 mmol/L (21.0-32.0); CREATININE 1.36 mg/dL (0.70-1.30); Calcium 8.8 mg/dL (8.5-10.1); Chloride 102 mmol/L (98-107); Estimated GFR 52.43 (mL/min/1.73m2); Glucose 332 mg/dL (74-106); Magnesium 1.4 mg/dL (1.8-2.4); NT-proBNP 599 pg/mL (<300); Potassium 4.5 mmol/L (3.5-5.1); Sodium 139 mmol/L (136-145); Total Protein 6.7 g/dL (6.4-8.2); Troponin I < 0.05 ng/Ml (<0.06)
--- NOTE | 2019-05-27 12:24 | DI.RAD_ITS ---
EXAM: XR PORTABLE CHEST AP CLINICAL HISTORY: Chest pain TECHNIQUE: COMPARISON: XR CHEST 2V PA LATERAL from 09/30/2018 XR CHEST 2V PA LATERAL from 03/24/2019 XR CHEST 2V PA LATERAL from 05/09/2019 XR CHEST 2V PA LATERAL from 05/19/2019 FINDINGS: The heart is enlarged. There are multiple sternal sutures. Lungs appear generally clear. No pleura l effusion identified on this frontal film. Old healed rib fractures noted on the right. IMPRESSION: No evidence of acute process.
--- NOTE | 2019-05-27 13:48 | NUR.NOTE ---
Nursing Note: pt states he is unsure what his current medications are, he has a list at home so not sure what he's taken this morning. Seen by Dr. Reilly on 05/09/2019 and states that no medications have changed since that visit other than he finished the antibiotics and prednisone. Med rec completed using MD progress note.
[2019-05-27] MEDS: Ondansetron O.D.T. 4 MG TABEF PO (13:54)
--- NOTE | 2019-05-27 13:59 | NUR.NOTE ---
Nursing Note: Patient resting quietly in room 1, denies any chest pain. C/O Nausea- received orders from [employer] for Zofran 4mg ODT. Administered, awaiting results.
[2019-05-27 14:58] LABS: Troponin I 0.05 ng/Ml (<0.06)
[2019-05-27] MEDS: MAGNESIUM SULFATE 4 GM/100 ML BAG IVPB (15:29)
[2019-05-27] MEDS: Normal Saline Flush 10 ML SYR IVP (15:32)
--- NOTE | 2019-05-27 16:12 | W.PM.HP.N ---
Date of service: 05/27/19 Time of Service: 16:12 Assessment and Plan Assessment and plan (1) Chest pain: Status: Acute Assessment and plan: refer to observation. telemetry, chest pain r/o MA. 2 sets of negative troponins. will cycle troponins for 24 hours, repeat EKG in am. ED provider consulted [facility] cardiology. recommendations for +/-heparinization and stress testing which we can not provide this weekend. will continue close monitoring. heparin protocol for ACS for 48 hours (2) Coronary artery disease: Status: Chronic Assessment and plan: see #1. will continue aspirin, beta abdi and statin. History: September 2016 RCA PCI for unstable angina. February 2017 CABG with MENENDEZ to LAD, SVG to RPDA and OM1 for unstable angina. Normal LV and RV function at time of CABG. May 2018 chest pain after 10 to 15 minutes walking on the treadmill. Amlodipine added. December of 2018 Stress Electrocardiography indeterminate due to inadequate heart rate. April 2019:MPI stress normal. (3) Essential hypertension: Status: Acute Assessment and plan: monitor, adjust medications as needed. continue amlodipine, lopressor. (4) Chronic renal insufficiency: Status: Chronic Assessment and plan: creatinine stable at 1.36 and below baseline of 1.5. continue to monitor, avoid nephrotoxic drugs, renal dosing as needed. (5) Diabetes mellitus, type II: Status: Chronic Assessment and plan: diabetic diet, check blood sugars ac/hs, sliding scale coverage as needed. continue lantus but will reduce dose in hospital from 70 to 50 and monitor closely. hemoglobin A1C in november was 8.6. will add to ED labs. diabetic education (6) Hypothyroidism (acquired): Status: Acute Assessment and plan: TSH in November was 2.26, continue synthroid. (7) Smoker: Status: Acute (8) Hypomagnesemia: Status: Acute Assessment and plan: replete and follow level (9) MERRITT (obstructive sleep apnea): Status: Chronic (10) DVT prophylaxis: Status: Acute Assessment and plan: will be heparinized. teds. (11) Discharge planning issues: Status: Acute Assessment and plan: anticipate discharge to home with no services once medically stable. History of Present Illness History of Present Illness Chief Complaint: chest pain Narrative: This is a 68-year-old male presents with mid-sternal chest pain started approximately 1 hour prior to arrival. Rates a 5 out of 10. No shortness of breath. Has had a cough and a recent pneumonia diagnosis about a month ago which was treated with a Z-Jame. Associated symptoms include nausea. No vomiting no diarrhea. Patient does have a history of a triple bypass in 2017. Previous smoker. Does have a history of type 2 diabetes. Review of Systems Constitutional Constitutional: Reports as per HPI and Denies fever(s) Cardiovascular Cardiovascular: Reports chest pain, Denies syncope, Denies edema and Denies dyspnea Respiratory Respiratory: Denies cough and Denies dyspnea Gastrointestinal Gastrointestinal: Denies abdominal pain, Denies nausea and Denies vomiting Musculoskeletal Musculoskeletal: Denies back pain Neurologic Neurologic: Denies syncope Hematologic/Lymphatic Hematologic/Lymphatic: Denies easy bleeding and Denies easy bruising [facility] Medical History Accelerating angina (Acute) Acquired hypothyroidism (Acute 10/28/16) Acute on chronic renal failure (Acute) Arthritis of both knees (Chronic) Atherosclerotic heart disease [place] coronary artery w/angina pectoris (Acute) Atrophic testicle (Chronic) S/P testosterone treatment, not currently. Atypical chest pain (Acute 06/22/14) a. ? cardiac in origina vs. related to untreated sleep apnea Benign non-nodular prostatic hyperplasia with lower urinary tract symptoms (Acute 06/27/15) BPH w urinary obs/LUTS (Acute 03/12/17) Bursitis of shoulder, right, adhesive (Acute 04/06/15) Cervical disc disorder with myelopathy (Acute) right arm Chest pain (Acute) neg. Thallium; PAD/reflux-resloved w/ Zantac Chronic and recurrent low back pain (Chronic) L4-[address] scan in 1993, recurrent since then intermittently. Chronic renal insufficiency (Chronic) Baseline creatinine 1.3, today 1.4. Current use of insulin (Chronic) Depressive disorder (Acute) marital issues Diabetes mellitus type 2 in obese Diabetes mellitus, type II (Chronic) a. poorly controlled Dyslipidemia (Chronic) Elevated TSH (Acute 06/22/14) Erectile dysfunction of organic origin (Acute 08/07/15) Essential hypertension Essential hypertension (Acute 01/31/13) responsive to exercise Frequency of urination (Acute 06/27/15) H/O renal calculi (Chronic) Hyperlipidemia Hyperlipidemia (Acute 08/17/12) Hypertension (Chronic) Hypomagnesemia (Acute 06/22/14) Only 1.0 in the ER today. Hypotension due to drugs (Acute) Hypothyroidism Hypothyroidism (acquired) (Acute) Kidney stone (Acute) calcium oxylate Left elbow contusion (Acute) Low back pain (Acute) L4-[address] Maisonneuve fracture of left fibula (Acute 05/07/16) Nocturnal hypoxemia (Acute) Obesity (Acute) Obesity (BMI 30-39.9) Obesity, Class II, BMI 35-39.9 (Chronic) BMI of 36.3. He has kept his weight stable for the last two years. Organic sleep apnea, unspecified (Acute) MERRITT (obstructive sleep apnea) (Chronic) untreated nighttime episodes of sob Pipe smoker (Chronic) Sedentary lifestyle (Chronic) Sensorineural hearing loss, bilateral (Acute 02/15/15) Sexual function problem (Acute) atrophic testicles, testosterone RX Smoker (Acute) Tendinitis of right shoulder (Acute) Type II diabetes mellitus, uncontrolled (Acute) Umbilical hernia (Chronic) Recurrent x 2, repaired x 3. Umbilical hernia (Acute) recurrent Surgical History Appendectomy Colonoscopy - IV Sedation Coronary Stent (09/26/16) Extraction of cataract 11/23/14; DR. GOINS; RIGHT EYE 12/07/14; DR. GOINS; LEFT EYE Fracture, Open Treatment ORIF-LEFT SYNDESMOSIS WITH TWO SCREWS History of cataract removal with insertion of prosthetic lens (Inactive 11/23/14) History of umbilical hernia repair (Inactive) Repair of umbilical hernia Status post appendectomy (Inactive) Status post coronary artery bypass with autogenous graft, three grafts (Inactive 03/12/17) Status post coronary artery stent placement (Inactive 09/26/16) One vessel for unstable angina Family History Father Diabetes Dementia Neoplasm PANCREATIC Social History Smoking/Tobacco Use Status: Former Tobacco Use Alcohol Intake: current Alcohol Intake frequency: a few times a week Drug use: Never Substance use type: does not use Household members: spouse Number of Children: 3 number of grandchildren: 3 Communication Needs: None Current gender identity: male What is your relationship status?: Panel score (0-1 are the most socially isolated patients): 1 What type of physical activity do you participate in: none Seatbelt use: always Drive intox 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 Working smoke detector in home: No Fire extinguisher in home: No Carbon monox detector in home: No Do you feel safe at home: Yes Do you feel safe in your relationship?: Yes Meds Home Medications and Allergies Home Medications Medication Instructions Recorded Confirmed Type Lantus Solostar U-100 Insulin 70 units SUB-Q QPM #4 box 11/09/17 05/29/19 Rx insulin aspart U-100 [Novolog 10 - 25 units SUB-Q AC #90 pen 11/09/17 05/29/19 Rx Flexpen U-100 Insulin] levothyroxine 50 mcg PO DAILY #90 tab-cap 11/09/17 05/29/19 Rx metoprolol tartrate 25 mg PO BID #180 tab-cap 11/09/17 05/29/19 Rx oxybutynin chloride 10 mg PO DAILY #90 tab-cap 11/09/17 05/29/19 Rx melatonin 3 mg PO HS #90 tab 11/11/17 05/29/19 Rx blood sugar diagnostic #360 strip 02/16/18 05/29/19 Rx tadalafil 5 mg tablet 5 mg PO DAILY #90 tab-cap 02/16/18 05/29/19 Rx fenofibrate nanocrystallized 145 145 mg PO DAILY #90 tab-cap 09/24/18 05/29/19 Rx mg tablet rosuvastatin 40 mg tablet 40 mg PO DAILY #90 tab 11/10/18 05/29/19 Rx pen needle, diabetic 32 gauge x #200 each 11/16/18 05/29/19 Rx 5/32 aspirin 325 mg PO DAILY 05/27/19 05/29/19 History amlodipine 5 mg PO DAILY 30 Days #10 tab 05/28/19 05/29/19 Rx amlodipine 10 mg PO DAILY #20 tab 05/28/19 05/29/19 Rx Allergies Allergy/AdvReac Type Severity Reaction Status Date / Time No Known Allergies Allergy Verified 05/29/19 12:20 Exam Const General: cooperative, healthy appearing, comfortable and no acute distress Nutritional Appearance: obese Orientation: alert, awake and oriented x3 Resp Effort & Inspection: normal respiratory effort Auscultation: clear to auscultation bilaterally Cardio Rate: regular rate Rhythm: abnormal rhythm irregularly irregular GI Inspection: normal to inspection Palpation: soft Percussion: normal to percussion Auscultation: normal bowel sounds Skin General skin exam: no rashes or lesions noted Neuro General: alert, awake and oriented x3 Extrem General: normal to inspection and full ROM Results Labs Result diagrams: 05/28/19 07:23 05/28/19 07:23 Labs: Laboratory Results - last 24 hr 05/27/19 05/27/19 05/27/19 11:45 11:45 14:23 WBC 8.10 RBC 3.67 L Hgb 12.0 L Hct 35.9 L MCV 97.8 H MCH 32.7 MCHC 33.4 RDW 12.5 Plt Count 308 MPV 11.1 H Immature Gran % 0.4 Neutrophils % 69.9 Lymphocytes % 19.1 Monocytes % 8.8 Eosinophils % 1.4 Basophils % 0.4 Absolute Neutrophils 5.67 Absolute Lymphocytes 1.55 Absolute Monocytes 0.71 H Absolute Eosinophils 0.11 Absolute Basophils 0.03 Sodium 139 Potassium 4.5 Chloride 102 Carbon Dioxide 25.2 Anion Gap 11.8 H BUN 27 H Creatinine 1.36 H Estimated GFR/1.73 m2 52.43 Glucose 332 H Calcium 8.8 Magnesium 1.4 L Total Bilirubin 0.3 AST 31 ALT 30 Alkaline Phosphatase 98 Troponin I < 0.05 0.05 NT-Pro-B Natriuret Pep 599 H Total Protein 6.7 Albumin 3.6 Last Vital Signs Temp 36.3 C L 05/27/19 11:23 Pulse 70 05/27/19 15:49 Resp 14 05/27/19 15:50 BP 141/61 H 05/27/19 15:49 Pulse Ox 97 05/27/19 15:50
[2019-05-27] MEDS: Insulin Aspart 300 UNITS/3 ML PEN SC (17:38)
[2019-05-27] MEDS: Insulin Glargine 300 UNITS/3 ML PEN 50 UNITS SC (19:09)
[2019-05-27] MEDS: Metoprolol 25 MG TAB PO (19:09)
[2019-05-27 20:20] LABS: Troponin I < 0.05 ng/Ml (<0.06)
[2019-05-27 20:44] LABS: Hemoglobin A1C 9.8 % (3.8-5.6)
[2019-05-27] MEDS: Melatonin 3 MG TAB PO (22:05)
[2019-05-28 00:48] VITALS: PULSE 70
[2019-05-28 00:57] LABS: PTT Activated 28.5 sec (21.0-31.4)
[2019-05-28] MEDS: Acetaminophen 325 MG TAB PO ×2 (00:57→08:48)
[2019-05-28] MEDS: Levothyroxine 50 MCG TAB PO (06:29)
[2019-05-28 07:33] VITALS: BP 139/74; PULSE 69; RESP 19; TEMP 36.6; O2SAT 94
[2019-05-28 07:35] VITALS: PULSE 64
[2019-05-28 07:37] LABS: Abs Immature Grans 0.01 k/cumm (0.0-0.09); Absolute Basophil Count 0.04 k/cumm (0.0-0.2); Absolute Eosinophil Count 0.17 k/cumm (0.0-0.7); Absolute Lymphocyte Count 2.01 k/cumm (1.2-3.4); Absolute Monocyte Count 0.64 k/cumm (0.11-0.7); Absolute Neutrophil Count 4.04 k/cumm (1.2-6.7); Basophils % 0.6; Eosinophils % 2.5; HCT 36.8 % (40.0-50.0); HGB 12.2 g/dL (13.5-17.5); Immature Grans % 0.1 %; Lymphocytes % 29.1; Mean Corp. HGB Concentration 33.2 g/dL (32.0-36.0); Mean Corpuscular Hemoglobin 32.9 pg (27.0-33.0); Mean Corpuscular Volume 99.2 fL (80-95); Mean Platelet Volume 10.7 fL (8.0-11.0); Monocytes % 9.3; Neutrophils % 58.4; Platelet Count 290 x1000/uL (130-400); RBC 3.71 m/cumm (4.50-6.00); RBC Distribution Width 12.8 % (11.8-14.1); White Blood Cell Count 6.91 k/cumm (4.4-10.8)
[2019-05-28 07:48] LABS: Anion Gap 4.9 mmol/L (3-11); BUN 26 mg/dL (7-18); CO2 29.1 mmol/L (21.0-32.0); Calcium 8.6 mg/dL (8.5-10.1); Calculated LDL 46 mg/dL; Chloride 104 mmol/L (98-107); Cholesterol 149 mg/dL (<200); Glucose 199 mg/dL (74-106); HDL Cholesterol 26 mg/dL (40-60); Magnesium 1.9 mg/dL (1.8-2.4); Potassium 4.3 mmol/L (3.5-5.1); Sodium 138 mmol/L (136-145); Triglyceride 388 mg/dL (<150)
[2019-05-28 07:53] LABS: PTT Activated 36.6 sec (21.0-31.4)
--- NOTE | 2019-05-28 08:12 | PDOC.CMIN ---
- If Service Date Differs Date of service: 05/28/19 Time of Service: 08:12 Care Management Initial Assess REASON FOR HOSPITALIZATION:: chest pain PAST MEDICAL HISTORY/PAST SURGICAL HISTORY:: Medical History . Accelerating angina (Acute). Acquired hypothyroidism (Acute 10/28/16). Acute on chronic renal failure (Acute). Arthritis of both knees (Chronic). Atherosclerotic heart disease [place] coronary artery w/angina pectoris (Acute). Atrophic testicle (Chronic). S/P testosterone treatment, not currently. Atypical chest pain (Acute 06/22/14). a. ? cardiac in origina vs. related to untreated sleep apnea. Benign non-nodular prostatic hyperplasia with lower urinary tract symptoms (Acute 06/27/15). BPH w urinary obs/LUTS (Acute 03/12/17). Bursitis of shoulder, right, adhesive (Acute 04/06/15). Cervical disc disorder with myelopathy (Acute). right arm. Chest pain (Acute). neg. Thallium; PAD/reflux-resloved w/ Zantac. Chronic and recurrent low back pain (Chronic). L4-[address] scan in 1993, recurrent since then intermittently. Chronic renal insufficiency (Chronic). Baseline creatinine 1.3, today 1.4. Current use of insulin (Chronic). Depressive disorder (Acute). marital issues. Diabetes mellitus type 2 in obese. Diabetes mellitus, type II (Chronic). a. poorly controlled. Dyslipidemia (Chronic). Elevated TSH (Acute 06/22/14). Erectile dysfunction of organic origin (Acute 08/07/15). Essential hypertension. Essential hypertension (Acute 01/31/13). responsive to exercise. Frequency of urination (Acute 06/27/15). H/O renal calculi (Chronic). Hyperlipidemia. Hyperlipidemia (Acute 08/17/12). Hypertension (Chronic). Hypomagnesemia (Acute 06/22/14). Only 1.0 in the ER today. Hypotension due to drugs (Acute). Hypothyroidism. Hypothyroidism (acquired) (Acute). Kidney stone (Acute). calcium oxylate. Left elbow contusion (Acute). Low back pain (Acute). L4-[address] Maisonneuve fracture of left fibula (Acute 05/07/16). Nocturnal hypoxemia (Acute). Obesity (Acute). Obesity (BMI 30-39.9). Obesity, Class II, BMI 35-39.9 (Chronic). BMI of 36.3. He has kept his weight stable for the last two years. Organic sleep apnea, unspecified (Acute). MERRITT (obstructive sleep apnea) (Chronic). untreated. nighttime episodes of sob. Pipe smoker (Chronic). Sedentary lifestyle (Chronic). Sensorineural hearing loss, bilateral (Acute 02/15/15). Sexual function problem (Acute). atrophic testicles, testosterone RX. Smoker (Acute). Tendinitis of right shoulder (Acute). Type II diabetes mellitus, uncontrolled (Acute). Umbilical hernia (Chronic). Recurrent x 2, repaired x 3. Umbilical hernia (Acute). recurrent. Surgical History . Appendectomy. Colonoscopy - IV Sedation. Coronary Stent (09/26/16). Extraction of cataract. 11/23/14; DR. GOINS; RIGHT EYE. 12/07/14; DR. GOINS; LEFT EYE. Fracture, Open Treatment. ORIF-LEFT SYNDESMOSIS WITH TWO SCREWS. History of cataract removal with insertion of prosthetic lens (Inactive 11/23/14). History of umbilical hernia repair (Inactive). Repair of umbilical hernia. Status post appendectomy (Inactive). Status post coronary artery bypass with autogenous graft, three grafts (Inactive 03/12/17). Status post coronary artery stent placement (Inactive 09/26/16). One vessel for unstable angina PREVIOUS FUNCTIONAL STATUS/SOCIAL/FAMILY SUPPORTS:: Olaf lives in [place]. He identifies his ex- as his main support although they do not live together. He is independent at [facility] with all care and activities. CURRENT FUNCTIONAL STATUS:: Olaf was lying in bed when CM met with him. He was very anxious to be discharged as he stated he had many important things to do this afternoon. After a second EKG was completed after aambulation, he was able to be discharged home with no services. ADVANCE DIRECTIVES:: on file. Tiffany FIGUEROA Has patient been provided with information about the portal?: Yes Did the patient sign up for the portal?: No CODE STATUS:: Full Code INSURANCE COVERAGE / FINANCIAL ISSUES:: Medicare. for Life CURRENT HOME/COMMUNITY SERVICES/EQUIPMENT:: none PRIMARY CARE PHYSICIAN:: Gina Bravo POTENTIAL DISCHARGE NEEDS:: Follow up with [facility] , PCP and discharge plan PATIENT/FAMILY EDUCATION NEEDS:: Discharge plan, limitations, follow up plan, Ask me Three TRANSPORTATION:: via private vehicle with friend PLAN:: Olaf will be discharged with no new services. He will folllow up with Cardiology in one week as well as his PCP. Further cardiac workup, if needed, will be done as an outpatient.
[2019-05-28] MEDS: Fenofibrate, Micronized 145 MG TAB PO (08:47)
[2019-05-28] MEDS: ROSUVASTATIN 20 MG TAB 40 MG PO (08:47)
[2019-05-28] MEDS: amLODIPine 5 MG TAB PO ×2 (08:48→09:19)
[2019-05-28] MEDS: Aspirin E.C. 325 MG TABEC PO (08:48)
[2019-05-28] MEDS: Oxybutynin-CR 5 MG TABCR 10 MG PO (08:48)
[2019-05-28] MEDS: Metoprolol 25 MG TAB PO (08:48)
[2019-05-28] MEDS: Insulin Aspart 300 UNITS/3 ML PEN SC ×2 (09:00→12:16)
[2019-05-28 09:25] VITALS: RESP 14
[2019-05-28 10:36] LABS: Troponin I < 0.05 ng/Ml (<0.06)
[2019-05-28 11:25] VITALS: BP 143/78; PULSE 65; RESP 18; TEMP 36.7; O2SAT 96
--- NOTE | 2019-05-28 12:00 | W.PM.DS.N ---
Date of service: 05/28/19 Time of Service: 12:00 DS: Diagnosis Discharge Diagnosis (1) Chest pain: Start date: 05/28/19 Start time: 12:01 Status: Acute Asessment and Plan: Resolved. No CP with ambulation or when sitting. Troponins have been negative. less than 0.5 with one at 0.5 trending back down to 0.5. He will likely need cardiac cath, last stress Apr 05 2019. Follow up with cardiology with in 1 week. Increase amlodipine to 10 mg as he was already on BID dose BB. BP tolerating increase. (2) Coronary artery disease: Start date: 05/28/19 Start time: 12:07 Status: Chronic Asessment and Plan: History of bypass 2017, On statin, and fenofibrate. continue home dosing. (3) Essential hypertension: Start date: 05/28/19 Start time: 12:10 Status: Acute Asessment and Plan: Controlled with BB, amlodipine. (4) Chronic renal insufficiency: Start date: 05/28/19 Start time: 12:10 Status: Chronic Asessment and Plan: Stable (5) Diabetes mellitus, type II: Start date: 05/28/19 Start time: 12:11 Status: Chronic Asessment and Plan: a1c 9.8 up from 6.8 in 11/2018, follow up for tighter glucose control (6) Hypothyroidism (acquired): Start date: 05/28/19 Start time: 12:12 Status: Acute Asessment and Plan: Continue home levothyroxine (7) Smoker: Status: Acute (8) Hypomagnesemia: Status: Acute (9) MERRITT (obstructive sleep apnea): Status: Chronic (10) DVT prophylaxis: Status: Acute (11) Discharge planning issues: Status: Acute Discharge Plan Disposition Patient Disposition: HOME Condition: Stable Discharge Details Chief Complaint: Chest Pain Clinical Impression: Chest pain Reason For Visit: CHEST PAIN Admit Date/Time: 05/27/19 15:04 Admit Provider: Virginia Angulo Attending Provider: Virginia Angulo Primary Care Provider: [facility]ravo [facility] Course: 68 y.o male with PMH of CAD with bypass in 2017, MARIAH, HTN, Hypothyroidism, DM 2, obesity admitted to [facility] for mid-sternal chest pain lasting 1 hour prior to arrival to the ED. He was admitted for further work up regarding his chest pain. Troponins overnight less than 0.5 with one at 0.5. Recent diagnosis of pneumonia, treated with zpak. No fever or sputum production. Over night treated with heparin per [facility] protocol. [facility] cardiology recommends 24 hours trops, heparin, repeat EKG this am. Patient doing better today. Pain was a 1 while resting. Increased amlodipine to 10 mg. Ambulated around hallway, no chest pain while ambulating. No chest pain after resting. Repeat EKG after ambulation unchanged. Patient would likely benefit from long acting nitrate however he uses cialsis daily. Recommend follow up with cardiology in 1 week. He may benefit from cardiac cath vs stress test due to his weight. Stress in April 2019 There was a significant amount of attenuation which affected the interpretation of the study.With attenuation correction there was no evidence of reversible ischemia on the imaging portion of this exam.This represents a normal myocardial perfusion exam. He is being discharged home. He denies CP, SOB, N/V/D. Home Meds and New Rx's Prescriptions: New amlodipine 5 mg Tablet 5 mg PO DAILY 30 Days Qty: 10 RF: 0 Continued rosuvastatin 40 mg tablet 40 mg PO DAILY Qty: 90 RF: 3 oxybutynin chloride 10 MG tablet extended release 24hr 10 mg PO DAILY Qty: 90 RF: 4 levothyroxine 50 MCG tablet 50 mcg PO DAILY Qty: 90 RF: 4 metoprolol tartrate 25 MG tablet 25 mg PO BID Qty: 180 RF: 4 insulin aspart U-100 [Novolog Flexpen U-100 Insulin] 100 UNIT/1 ML insulin pen 10 - 25 units Sub-Q AC Qty: 90 RF: 4 Lantus Solostar U-100 Insulin 300 UNITS/3 ML insulin pen 70 units Sub-Q QPM Qty: 4 RF: 3 melatonin 3 MG tablet extended release 3 mg PO HS Qty: 90 RF: 4 (DME) FreeStyle Lite Strips strip 1 ea Miscellaneous QID Qty: 360 RF: 5 tadalafil [Cialis] 5 mg tablet 5 mg PO DAILY Qty: 90 RF: 4 fenofibrate nanocrystallized [Tricor] 145 mg tablet 145 mg PO DAILY Qty: 90 RF: 3 (DME) pen needle, diabetic [BD Ultra-Fine Amber Pen Needle] 32 gauge x 5/32 needle 1 ea Miscellaneous QID Qty: 200 RF: 5 aspirin 325 MG tablet,delayed release (DR/EC) 325 mg PO DAILY RF: 0 Discontinued amlodipine 5 mg tablet 5 mg PO DAILY Qty: 90 RF: 3 Discharge Instructions Instructions: Angina (DC), Coronary Artery Disease (DC), Diabetes Mellitus Type 2 in Adults (DC), Acute Coronary Syndrome (DC) Additional Instructions: Take 10 mg of amlodipine daily. That is 5 mg more than you have been taking. Follow up with Cardiology in 1 week. If you have Chest pain that is continuous return to the Emergency department immediately Stand Alone Forms: Nursing Discharge Form Referrals: Skyler Cherry MD [ CONSULTING PHYSICIAN] - 05/28/19 12:32 pm Activity:: Activity as Tolerated Equipment/Supplies:: No Equipment Needed Diet:: Carb Counting Discharge Orders Discharge Orders: Discharge Order (Routine); Ordered 05/28/19 Ordered By: Gina Gautam DS: Summary Status at Discharge Functional status at discharge: independent ambulation Overall status at discharge: patient is back to baseline Mental Status: mental status grossly normal Speech and Movement: speech and movement normal Mood: congruent mood Affect: normal affect Exam Const General: cooperative, healthy appearing and no acute distress Nutritional Appearance: obese Orientation: alert, awake and oriented x3 HENMT Head: normal to inspection Ears: hearing grossly normal bilaterally Face and sinus: normal facial exam Mouth: oral mucosae normal Eyes General: appearance normal, both eyes and all related structures Conjunctivae: conjunctivae normal Pupils: PERRL EOM: EOM intact bilaterally Neck Neck: normal visual inspection Thyroid: thyroid normal Lymphatic: no lymphadenopathy noted Chest Chest: other (mid line scar) Resp Effort & Inspection: normal respiratory effort and able to speak in complete sentences Auscultation: clear to auscultation bilaterally Cardio Jugular venous pressure: no JVD Rate: regular rate Rhythm: regular rhythm Heart Sounds: S1 normal and S2 normal GI Inspection: normal to inspection Palpation: soft and no hepatosplenomegaly Percussion: normal to percussion Auscultation: normal bowel sounds General: deferred Back/Spine/Pelvis Back: no CVA tenderness Skin General skin exam: other (scar line) Neuro General: alert, awake and oriented x3 Cognition: normal cognition Extrem General: full ROM and no clubbing, cyanosis or edema Psych Appearance: grossly normal Mental Status: mental status grossly normal Speech and Movement: speech and movement normal Mood: congruent mood Affect: normal affect Attitude: cooperative DS: Data Vitals/I&O Vitals and I&O: Vital Signs Temperature 36.6 C 05/28/19 07:33 Temperature Source Tympanic 05/28/19 07:33 Pulse 64 05/28/19 07:35 Pulse Rhythm Regular 05/28/19 08:50 Pulse 68 05/27/19 15:50 Respiratory Rate 19 05/28/19 07:33 Respiratory Effort Non-Labored 05/28/19 08:50 Respiratory Depth Normal 05/28/19 08:50 Respiratory Pattern Normal 05/28/19 08:50 Blood Pressure 139/74 05/28/19 07:33 Blood Pressure Mean 78 05/27/19 15:49 Blood Pressure Position Sitting 05/27/19 11:23 Pulse Oximetry 94 L 05/28/19 07:33 Oxygen Delivery Method Room Air 05/28/19 07:33 Oxygen Flow Rate 0 05/28/19 07:33 Fraction of Inspired Oxygen (FIO2) 21 05/28/19 09:25 Pain Level 4 05/28/19 08:48 Intake & Output 05/27/19 05/28/19 05/28/19 23:59 11:59 23:59 Intake Total 350 / 360 281.750 / 281.750 Output Total 350 / 350 Balance 0 / 10 281.750 / 281.750 Weight 136.8 kg 135.2 kg Intake: IV 161.750 / 161.750 Oral 350 / 350 120 / 120 Output: Urine 350 / 350 Other: Urine Color Pale Yellow Urine Appearance Clear Comment void x 2 in br during noc shit Voiding Methods Bedside Commode Toilet Data Completed and Pending Completed studies during hospitalization [Text1]: FINDINGS: The heart is enlarged. There are multiple sternal sutures. Lungs appear generally clear. No pleural effusion identified on this frontal film. Old healed rib fractures noted on the right. IMPRESSION: No evidence of acute process. Labs on day of discharge: Labs from last 24 hours 05/28/19 05/28/19 05/28/19 11:35 09:48 07:23 WBC RBC Hgb Hct MCV MCH MCHC RDW Plt Count MPV Immature Gran % Neutrophils % Lymphocytes % Monocytes % Eosinophils % Basophils % Absolute Neutrophils Absolute Lymphocytes Absolute Monocytes Absolute Eosinophils Absolute Basophils APTT Sodium Potassium Chloride Carbon Dioxide Anion Gap BUN Creatinine Estimated GFR/1.73 m2 Glucose Hemoglobin A1c Calcium Magnesium Total Bilirubin AST ALT Alkaline Phosphatase Troponin I Pending Cancelled < 0.05 NT-Pro-B Natriuret Pep Total Protein Albumin Triglycerides Total Cholesterol LDL Cholesterol, Calc HDL Cholesterol 05/28/19 05/28/19 05/28/19 07:23 07:23 07:23 WBC 6.91 RBC 3.71 L Hgb 12.2 L Hct 36.8 L MCV 99.2 H MCH 32.9 MCHC 33.2 RDW 12.8 Plt Count 290 MPV 10.7 Immature Gran % 0.1 Neutrophils % 58.4 Lymphocytes % 29.1 Monocytes % 9.3 Eosinophils % 2.5 Basophils % 0.6 Absolute Neutrophils 4.04 Absolute Lymphocytes 2.01 Absolute Monocytes 0.64 Absolute Eosinophils 0.17 Absolute Basophils 0.04 APTT 36.6 H D Sodium 138 Potassium 4.3 Chloride 104 Carbon Dioxide 29.1 Anion Gap 4.9 BUN 26 H Creatinine 1.40 H Estimated GFR/1.73 m2 50.70 Glucose 199 H D Hemoglobin A1c Calcium 8.6 Magnesium 1.9 Total Bilirubin AST ALT Alkaline Phosphatase Troponin I NT-Pro-B Natriuret Pep Total Protein Albumin Triglycerides 388 H Total Cholesterol 149 LDL Cholesterol, Calc 46 HDL Cholesterol 26 L 05/28/19 05/28/19 05/27/19 05:35 00:30 20:00 WBC RBC Hgb Hct MCV MCH MCHC RDW Plt Count MPV Immature Gran % Neutrophils % Lymphocytes % Monocytes % Eosinophils % Basophils % Absolute Neutrophils Absolute Lymphocytes Absolute Monocytes Absolute Eosinophils Absolute Basophils APTT Cancelled 28.5 Sodium Potassium Chloride Carbon Dioxide Anion Gap BUN Creatinine Estimated GFR/1.73 m2 Glucose Hemoglobin A1c Calcium Magnesium Total Bilirubin AST ALT Alkaline Phosphatase Troponin I < 0.05 NT-Pro-B Natriuret Pep Total Protein Albumin Triglycerides Total Cholesterol LDL Cholesterol, Calc HDL Cholesterol 05/27/19 05/27/19 05/27/19 14:23 11:45 11:45 WBC 8.10 RBC 3.67 L Hgb 12.0 L Hct 35.9 L MCV 97.8 H MCH 32.7 MCHC 33.4 RDW 12.5 Plt Count 308 MPV 11.1 H Immature Gran % 0.4 Neutrophils % 69.9 Lymphocytes % 19.1 Monocytes % 8.8 Eosinophils % 1.4 Basophils % 0.4 Absolute Neutrophils 5.67 Absolute Lymphocytes 1.55 Absolute Monocytes 0.71 H Absolute Eosinophils 0.11 Absolute Basophils 0.03 APTT Sodium Potassium Chloride Carbon Dioxide Anion Gap BUN Creatinine Estimated GFR/1.73 m2 Glucose Hemoglobin A1c 9.8 H Calcium Magnesium Total Bilirubin AST ALT Alkaline Phosphatase Troponin I 0.05 NT-Pro-B Natriuret Pep Total Protein Albumin Triglycerides Total Cholesterol LDL Cholesterol, Calc HDL Cholesterol 05/27/19 11:45 WBC RBC Hgb Hct MCV MCH MCHC RDW Plt Count MPV Immature Gran % Neutrophils % Lymphocytes % Monocytes % Eosinophils % Basophils % Absolute Neutrophils Absolute Lymphocytes Absolute Monocytes Absolute Eosinophils Absolute Basophils APTT Sodium 139 Potassium 4.5 Chloride 102 Carbon Dioxide 25.2 Anion Gap 11.8 H BUN 27 H Creatinine 1.36 H Estimated GFR/1.73 m2 52.43 Glucose 332 H Hemoglobin A1c Calcium 8.8 Magnesium 1.4 L Total Bilirubin 0.3 AST 31 ALT 30 Alkaline Phosphatase 98 Troponin I < 0.05 NT-Pro-B Natriuret Pep 599 H Total Protein 6.7 Albumin 3.6 Triglycerides Total Cholesterol LDL Cholesterol, Calc HDL Cholesterol [facility] Medical History Accelerating angina (Acute) Acquired hypothyroidism (Acute 10/28/16) Acute on chronic renal failure (Acute) Arthritis of both knees (Chronic) Atherosclerotic heart disease [place] coronary artery w/angina pectoris (Acute) Atrophic testicle (Chronic) S/P testosterone treatment, not currently. Atypical chest pain (Acute 06/22/14) a. ? cardiac in origina vs. related to untreated sleep apnea Benign non-nodular prostatic hyperplasia with lower urinary tract symptoms (Acute 06/27/15) BPH w urinary obs/LUTS (Acute 03/12/17) Bursitis of shoulder, right, adhesive (Acute 04/06/15) Cervical disc disorder with myelopathy (Acute) right arm Chest pain (Acute) neg. Thallium; PAD/reflux-resloved w/ Zantac Chronic and recurrent low back pain (Chronic) L4-[address] scan in 1993, recurrent since then intermittently. Chronic renal insufficiency (Chronic) Baseline creatinine 1.3, today 1.4. Current use of insulin (Chronic) Depressive disorder (Acute) marital issues Diabetes mellitus type 2 in obese Diabetes mellitus, type II (Chronic) a. poorly controlled Dyslipidemia (Chronic) Elevated TSH (Acute 06/22/14) Erectile dysfunction of organic origin (Acute 08/07/15) Essential hypertension Essential hypertension (Acute 01/31/13) responsive to exercise Frequency of urination (Acute 06/27/15) H/O renal calculi (Chronic) Hyperlipidemia Hyperlipidemia (Acute 08/17/12) Hypertension (Chronic) Hypomagnesemia (Acute 06/22/14) Only 1.0 in the ER today. Hypotension due to drugs (Acute) Hypothyroidism Hypothyroidism (acquired) (Acute) Kidney stone (Acute) calcium oxylate Left elbow contusion (Acute) Low back pain (Acute) L4-[address] [place] fracture of left fibula (Acute 05/07/16) Nocturnal hypoxemia (Acute) Obesity (Acute) Obesity (BMI 30-39.9) Obesity, Class II, BMI 35-39.9 (Chronic) BMI of 36.3. He has kept his weight stable for the last two years. Organic sleep apnea, unspecified (Acute) MERRITT (obstructive sleep apnea) (Chronic) untreated nighttime episodes of sob Pipe smoker (Chronic) Sedentary lifestyle (Chronic) Sensorineural hearing loss, bilateral (Acute 02/15/15) Sexual function problem (Acute) atrophic testicles, testosterone RX Smoker (Acute) Tendinitis of right shoulder (Acute) Type II diabetes mellitus, uncontrolled (Acute) Umbilical hernia (Chronic) Recurrent x 2, repaired x 3. Umbilical hernia (Acute) recurrent Surgical History Appendectomy Colonoscopy - IV Sedation Coronary Stent (09/26/16) Extraction of cataract 11/23/14; DR. GOINS; RIGHT EYE 12/07/14; DR. GOINS; LEFT EYE Fracture, Open Treatment ORIF-LEFT SYNDESMOSIS WITH TWO SCREWS History of cataract removal with insertion of prosthetic lens (Inactive 11/23/14) History of umbilical hernia repair (Inactive) Repair of umbilical hernia Status post appendectomy (Inactive) Status post coronary artery bypass with autogenous graft, three grafts (Inactive 03/12/17) Status post coronary artery stent placement (Inactive 09/26/16) One vessel for unstable angina Family History Father Diabetes Dementia Neoplasm PANCREATIC Social History Smoking/Tobacco Use Status: Former Tobacco Use Alcohol Intake: current Alcohol Intake frequency: a few times a week Drug use: Never Substance use type: does not use Household members: spouse Number of Children: 3 number of grandchildren: 3 Communication Needs: None Current gender identity: male What is your relationship status?: Panel score (0-1 are the most socially isolated patients): 1 What type of physical activity do you participate in: none Seatbelt use: always Drive 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
[2019-05-28 12:11] LABS: Troponin I < 0.05 ng/Ml (<0.06)
--- NOTE | 2019-05-28 17:13 | CMDISCH_ITS ---
- If Service Date Differs Date of service: 05/28/19 Time of Service: 17:13 LACE Index Scoring Tool - Questions: Length of Stay (in days): 1 Acuity (Admit via E.D.?): Yes Comorbidities: Diabetes w/o Complication, Liver or Renal Disease E.D. Visits: 6 - Answers: Total Score: 13 Risk of Readmission: High Risk Care Management Discharge Reason for Hospitalization: chest pain Discharge Plan: Olaf will be discharged with no new services. He will folllow u p with Cardiology in one week as well as his PCP. Further cardiac workup, if needed, will be done as an outpatient Patient/Family Education Needs: Discharge plan, limitations, follow up plan, Ask me Three
== END 2019-05-28 13:53 | disposition home or self-care (01) ==
LOC: ER 15:49 → MS 16:12
PROVIDERS: General Practice; Nurse Practitioner Acute Care; Nurse Practitioner Family; Admitting Provider Internal Medicine; Emergency Provider Registered Nurse Emergency; PCP Nurse Practitioner Adult Health; Visit Provider Internal Medicine
DX: R07.9 Chest pain, unspecified (principal); I25.10 Atherosclerotic heart disease of native coronary artery without angina pectoris; I12.9 Hypertensive chronic kidney disease with stage 1 through stage 4 chronic kidney disease, or unspecified chronic kidney disease; Z95.1 Presence of aortocoronary bypass graft; E11.22 Type 2 diabetes mellitus with diabetic chronic kidney disease; N18.9 Chronic kidney disease, unspecified; E03.9 Hypothyroidism, unspecified; F17.210 Nicotine dependence, cigarettes, uncomplicated; E83.42 Hypomagnesemia; G47.33 Obstructive sleep apnea (adult) (pediatric); E66.9 Obesity, unspecified; Z68.41 Body mass index [BMI] 40.0-44.9, adult
CPT/HCPCS: 36415; 36416; 80048; 80053; 80061; 82962; 93005; 96365; 99239; 99285; 71045; 83036; 83735; 83880; 84484; 85025; 85730; 93010; 99217; 99219; G0378; J3475

== ENCOUNTER 2019-05-29 12:10 | Emergency (ER) | payer MEDICARE, OTHER, SELFPAY ==
[2019-05-29] VITALS (50 sets, daily range): BP systolic 106–147; BP diastolic 41–74; PULSE 63–82; RESP 18–24; TEMP 36.8; O2SAT 85–98
[2019-05-29] MEDS: Aspirin 81 MG CHEW 324 MG CH (12:48)
[2019-05-29 13:17] LABS: Abs Immature Grans 0.03 k/cumm (0.0-0.09); Absolute Basophil Count 0.04 k/cumm (0.0-0.2); Absolute Eosinophil Count 0.18 k/cumm (0.0-0.7); Absolute Lymphocyte Count 1.55 k/cumm (1.2-3.4); Absolute Monocyte Count 0.62 k/cumm (0.11-0.7); Absolute Neutrophil Count 4.78 k/cumm (1.2-6.7); Basophils % 0.6; Eosinophils % 2.5; HCT 33.5 % (40.0-50.0); HGB 11.3 g/dL (13.5-17.5); Immature Grans % 0.4 %; Lymphocytes % 21.5; Mean Corp. HGB Concentration 33.7 g/dL (32.0-36.0); Mean Platelet Volume 10.6 fL (8.0-11.0); Monocytes % 8.6; Neutrophils % 66.4; Platelet Count 264 x1000/uL (130-400); RBC 3.42 m/cumm (4.50-6.00); RBC Distribution Width 12.4 % (11.8-14.1)
[2019-05-29 13:33] LABS: ALT 29 U/L (16-63); AST 26 U/L (15-37); Albumin 3.3 g/dL (3.4-5.0); Alkaline Phosphatase 84 U/L (46-116); Anion Gap 8.4 mmol/L (3-11); BUN 36 mg/dL (7-18); Bilirubin, Total 0.3 mg/dL (0.2-1.0); CO2 26.6 mmol/L (21.0-32.0); CREATININE 1.48 mg/dL (0.70-1.30); Calcium 8.6 mg/dL (8.5-10.1); Chloride 103 mmol/L (98-107); Estimated GFR 47.55 (mL/min/1.73m2); Glucose 231 mg/dL (74-106); Potassium 4.4 mmol/L (3.5-5.1); Sodium 138 mmol/L (136-145); Total Protein 6.1 g/dL (6.4-8.2)
[2019-05-29 13:34] LABS: Troponin I < 0.05 ng/Ml (<0.06)
[2019-05-29 13:36] LABS: Magnesium 1.5 mg/dL (1.8-2.4); NT-proBNP 1105 pg/mL (<300)
--- NOTE | 2019-05-29 14:00 | DI.RAD_ITS ---
EXAM: XR CHEST 2V PA LATERAL INDICATION: cough. COMPARISON: XR PORTABLE CHEST AP from 05/27/2019 TECHNIQUE: 2D digital imaging was performed. FINDINGS: Heart is enlarged. The patient is status post CABG. There are old right rib fractures. Lungs appea r clear. No infiltrate, effusion or pulmonary edema is seen. IMPRESSION: Cardiomegaly. No acute abnormality.
--- NOTE | 2019-05-29 14:50 | ED.GENADUL_ITS ---
Discharge Plan Disposition Patient Disposition: [facility] Condition: Stable Discharge Details Chief Complaint: Chest Pain Clinical Impression: Angina pectoris, unstable, CHF (congestive heart failure) Primary Care Provider: Gina Bravo ED Provider: Jaci Kumar Home Meds and New Rx's Prescriptions: No Action rosuvastatin 40 mg tablet 40 mg PO DAILY Qty: 90 RF: 3 oxybutynin chloride 10 MG tablet extended release 24hr 10 mg PO DAILY Qty: 90 RF: 4 levothyroxine 50 MCG tablet 50 mcg PO DAILY Qty: 90 RF: 4 metoprolol tartrate 25 MG tablet 25 mg PO BID Qty: 180 RF: 4 insulin aspart U-100 [Novolog Flexpen U-100 Insulin] 100 UNIT/1 ML insulin pen 10 - 25 units Sub-Q AC Qty: 90 RF: 4 Lantus Solostar U-100 Insulin 300 UNITS/3 ML insulin pen 70 units Sub-Q QPM Qty: 4 RF: 3 melatonin 3 MG tablet extended release 3 mg PO HS Qty: 90 RF: 4 (DME) FreeStyle Lite Strips strip 1 ea Miscellaneous QID Qty: 360 RF: 5 tadalafil [Cialis] 5 mg tablet 5 mg PO DAILY Qty: 90 RF: 4 fenofibrate nanocrystallized [Tricor] 145 mg tablet 145 mg PO DAILY Qty: 90 RF: 3 (DME) pen needle, diabetic [BD Ultra-Fine Amber Pen Needle] 32 gauge x 5/32 needle 1 ea Miscellaneous QID Qty: 200 RF: 5 aspirin 325 MG tablet,delayed release (DR/EC) 325 mg PO DAILY RF: 0 amlodipine 5 mg Tablet 5 mg PO DAILY 30 Days Qty: 10 RF: 0 amlodipine 10 mg tablet 10 mg PO DAILY Qty: 20 RF: 0 Discharge Data Discharge Date/Time-TO BE ENTERED AT DEPARTURE: 05/29/19 17:10 Medical Decision Making <JOBY David - Last Filed: 05/29/19 16:41> This is a 68-year-old gentleman with a complicated medical history who returns to the emergency room for chest pressure. Patient was recently evaluated in the emergency room for similar chest pressure ultimately admitted to the hospital on Thursday evening yesterday he left the hospital as his chest pressure had improved. Patient was given strict return precautions. He awoke this morning at 4 with chest pressure took as a sleeping pill went back to bed then woke up at approximately 11:00 with persistent chest pressure and then return to the emergency room. Patient reports associated nausea. Mild clamminess but no significant sweating. Denies radiating pain. Denies obvious exertional component. Does report a mild headache. Admits to taking only Tylenol this morning. Patient requesting readmission to hospital at this time. Labs repeated. ECG: reviewed with Dr. Rodrigues reveals rate of 76. Right bundle branch block, sinus rhythm with first degree av block. Similar to 05/28/19. ASA provided. Chest pain resolved on reevaluation. During pt hospital course previous ECG reviewed with did reveal nonspecific t wave changes which were transient noted in 1, AvL. This patient does have a history of triple bypass, is a diabetic, history of hyperlipidemia, hypertension, morbid obesity. Patient does report during his hospital stay blood pressure meds changed specifically amlodipine added. Initial labs reveal significant increase in BNP compared to two days ago. normal trop. Discussed case with hospitalist who doesn't feel comfortable admitting this pt back to [facility] and recommends transfer to [facility]. Recommendation based and transient ECG changes on serial ECGs during stay. Equivocal stress testing noted in april and unstable angina symptoms. Recommends transfer to tertiary care for possible cardiac cath. Pt chest pain/pressure returned at 3/10. Discussed with Dr. Rodrigues who recommends Nitropaste. Pt didn't take his daily meds today. Reevaluation after nitro: pt chest pain/pressure free. Spoke with international coordinator and handcrew foreman who will accept pts transfer. Recommended heparin protocol initiated, plavix 300mg. Accepting MD Dr. Coronado. <JOBY Pereira - Last Filed: 05/29/19 22:33> Patient received in signout from Kassandra TAPIA. See her note for complete HPI and PE details. In brief patient here for ongoing chest pain which has now been relieved with topical nitro. Recent admission here with indeterminate stress testing. [facility] cardiology is accept the patient for unstable angina at this time. HPI <JOBY David - Last Filed: 05/29/19 16:41> General Date/Time Provider Initiated Documentation: 05/29/19 12:11 . HPI Narrative: This is a very pleasant 68 yo pt presenting to the ER for chest pressure which was noted this Am at approximately 400am. Pt took melatonin and went back to bed till approximately 1100 at which time pt still had chest pressure and presented to ED. pt reports associated nausea w/o vomitting. mild MOSS. no dizziness, diff breathing, SOB. pt denies radiating pain. pt reports mild clammyness but denies sweating. pt reports no abd pain. no bowel changes. denies cough, or URI complaints. pt recently left the hosptial yesterday after being admitted thursday for similar complaints. pt left hosptial yesterday because he was chest pain free. Related Data Home Medications Medication Instructions Recorded Confirmed Lantus Solostar U-100 Insulin 70 units SUB-Q QPM #4 box 11/09/17 05/29/19 insulin aspart U-100 [Novolog 10 - 25 units SUB-Q AC #90 pen 11/09/17 05/29/19 Flexpen U-100 Insulin] levothyroxine 50 mcg PO DAILY #90 tab-cap 11/09/17 05/29/19 metoprolol tartrate 25 mg PO BID #180 tab-cap 11/09/17 05/29/19 oxybutynin chloride 10 mg PO DAILY #90 tab-cap 11/09/17 05/29/19 melatonin 3 mg PO HS #90 tab 11/11/17 05/29/19 blood sugar diagnostic #360 strip 02/16/18 05/29/19 tadalafil 5 mg tablet 5 mg PO DAILY #90 tab-cap 02/16/18 05/29/19 fenofibrate nanocrystallized 145 145 mg PO DAILY #90 tab-cap 09/24/18 05/29/19 mg tablet rosuvastatin 40 mg tablet 40 mg PO DAILY #90 tab 11/10/18 05/29/19 pen needle, diabetic 32 gauge x #200 each 11/16/18 05/29/19 aspirin 325 mg PO DAILY 05/27/19 05/29/19 amlodipine 5 mg PO DAILY 30 Days #10 tab 05/28/19 05/29/19 amlodipine 10 mg PO DAILY #20 tab 05/28/19 05/29/19 Previous Rx's Medication Instructions Recorded Lantus Solostar U-100 Insulin 70 units SUB-Q QPM #4 box 11/09/17 insulin aspart U-100 [Novolog 10 - 25 units SUB-Q AC #90 pen 11/09/17 Flexpen U-100 Insulin] levothyroxine 50 mcg PO DAILY #90 tab-cap 11/09/17 metoprolol tartrate 25 mg PO BID #180 tab-cap 11/09/17 oxybutynin chloride 10 mg PO DAILY #90 tab-cap 11/09/17 melatonin 3 mg PO HS #90 tab 11/11/17 blood sugar diagnostic #360 strip 02/16/18 tadalafil 5 mg tablet 5 mg PO DAILY #90 tab-cap 02/16/18 fenofibrate nanocrystallized 145 145 mg PO DAILY #90 tab-cap 09/24/18 mg tablet rosuvastatin 40 mg tablet 40 mg PO DAILY #90 tab 11/10/18 pen needle, diabetic 32 gauge x #200 each 11/16/18 amlodipine 5 mg PO DAILY 30 Days #10 tab 05/28/19 amlodipine 10 mg PO DAILY #20 tab 05/28/19 Allergies Allergy/AdvReac Type Severity Reaction Status Date / Time No Known Allergies Allergy Verified 05/29/19 12:20 General Stated Complaint: Chest Pain CHRISTIANE: 2 Review of Systems <JOBY David - Last Filed: 05/29/19 16:41> All systems reviewed & are unremarkable except as noted in HPI and below Constitutional Constitutional: Denies chills, Reports fatigue, Denies fever(s), Reports headache(s) and Denies malaise ENT Ears, Nose, Mouth, and Throat: Reports headache(s) Cardiovascular Cardiovascular: Reports chest pain, Reports diaphoresis, Denies syncope, Denies edema, Denies lightheadedness, Denies radiating jaw, neck or arm pain, Denies palpitations, Denies dyspnea and Denies dyspnea on exertion Respiratory Respiratory: Denies cough, Denies dyspnea, Denies dyspnea on exertion and Denies wheezing Gastrointestinal Gastrointestinal: Denies abdominal pain, Reports nausea and Denies vomiting Neurologic Neurologic: Denies syncope and Reports headache(s) Endocrine Endocrine: Reports fatigue and Denies palpitations Allergic/Immunologic Allergic/Immunologic: Denies wheezing PFSH <JOBY David - Last Filed: 05/29/19 16:41> Medical History Accelerating angina (Acute) Acquired hypothyroidism (Acute 10/28/16) Acute on chronic renal failure (Acute) Arthritis of both knees (Chronic) 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 Atypical chest pain (Acute 06/22/14) a. ? cardiac in origina vs. related to untreated sleep apnea Benign non-nodular prostatic hyperplasia with lower urinary tract symptoms (Acute 06/27/15) BPH w urinary obs/LUTS (Acute 03/12/17) Bursitis of shoulder, right, adhesive (Acute 04/06/15) Cervical disc disorder with myelopathy (Acute) right arm Chest pain (Acute) neg. Thallium; PAD/reflux-resloved w/ Zantac Chronic and recurrent low back pain (Chronic) L4-[address] scan in 1993, recurrent since then intermittently. Chronic renal insufficiency (Chronic) Baseline creatinine 1.3, today 1.4. Current use of insulin (Chronic) Depressive disorder (Acute) marital issues Diabetes mellitus type 2 in obese Diabetes mellitus, type II (Chronic) a. poorly controlled Dyslipidemia (Chronic) Elevated TSH (Acute 06/22/14) Erectile dysfunction of organic origin (Acute 08/07/15) Essential hypertension Essential hypertension (Acute 01/31/13) responsive to exercise Frequency of urination (Acute 06/27/15) H/O renal calculi (Chronic) Hyperlipidemia Hyperlipidemia (Acute 08/17/12) Hypertension (Chronic) Hypomagnesemia (Acute 06/22/14) Only 1.0 in the ER today. Hypotension due to drugs (Acute) Hypothyroidism Hypothyroidism (acquired) (Acute) Kidney stone (Acute) calcium oxylate Left elbow contusion (Acute) Low back pain (Acute) L4-[address] Maisonneuve fracture of left fibula (Acute 05/07/16) Nocturnal hypoxemia (Acute) Obesity (Acute) Obesity (BMI 30-39.9) Obesity, Class II, BMI 35-39.9 (Chronic) BMI of 36.3. He has kept his weight stable for the last two years. Organic sleep apnea, unspecified (Acute) MERRITT (obstructive sleep apnea) (Chronic) untreated nighttime episodes of sob Pipe smoker (Chronic) Sedentary lifestyle (Chronic) Sensorineural hearing loss, bilateral (Acute 02/15/15) Sexual function problem (Acute) atrophic testicles, testosterone RX Smoker (Acute) Tendinitis of right shoulder (Acute) Type II diabetes mellitus, uncontrolled (Acute) Umbilical hernia (Chronic) Recurrent x 2, repaired x 3. Umbilical hernia (Acute) recurrent Social History Smoking/Tobacco Use Status: Former Tobacco Use Alcohol Intake: current Alcohol Intake frequency: a few times a week Drug use: Never Substance use type: does not use Household members: spouse Number of Children: 3 number of grandchildren: 3 Communication Needs: None Current gender identity: male What is your relationship status?: Panel score (0-1 are the most socially isolated patients): 1 What type of physical activity do you participate in: none Seatbelt use: always Drive intox 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 recycle driver: No Working smoke detector in home: No Fire extinguisher in home: No Carbon monox detector in home: No Do you feel safe at home: Yes Do you feel safe in your relationship?: Yes Exam <JOBY David - Last Filed: 05/29/19 16:41> Narrative Exam Narrative: CONST: Obese, in no acute distress. Well hydrated. Alert and alert. EYES: General normal appearance. Alignment normal. Eyelids normal. Conjunctiva normal. Sclera normal. PERRL. NECK: Normal visual inspection. FROM. No lymphadenopathy. Trachea midline. No Midline tenderness. no JVD CHEST: Normal insepection of the chest. RESP: Normal respiratory effort. Speaking full sentences. No cough. No wheezing. No retractions. Clear to auscaltation. Breath sound equal and present bilaterally. CARDIO: No JVD. Normal PMI. Regular Rate. Regular Rhythm. Normal peripheral pulses. GI: Normal inspection of abdomen. No distension. Soft. Nontender. Bowel sounds present in all 4 quadrants. No rebound. No gaurding. MUSCULOSKELETAL: Normal Gait. FROM of all extremities. Distal neurovascularly intact. Sensation intact distally. no distal edema. SKIN: Normal. Dry. No rashes. NEURO: Alert and awake. Speech clear. PSYCH: Normal affect. Cooperative. Course <JOBY David - Last Filed: 05/29/19 16:41> Vital Signs Vital signs: Vital Signs Temperature 36.8 C 05/29/19 12:15 Pulse 78 05/29/19 12:15 Respiratory Rate 21 05/29/19 12:15 Blood Pressure 147/52 H 05/29/19 12:15 Pulse Oximetry 97 05/29/19 12:15 Temperature 36.8 C 05/29/19 12:15 Temperature Source Temporal Artery Scan 05/29/19 12:15 Pulse 63 05/29/19 14:31 Pulse 64 05/29/19 14:40 Respiratory Rate 20 05/29/19 12:49 Respiratory Effort 05/29/19 12:49 Respiratory Depth Normal 05/29/19 12:49 Respiratory Pattern Normal 05/29/19 12:49 Blood Pressure 116/42 L 05/29/19 14:31 Blood Pressure Mean 61 05/29/19 14:31 Blood Pressure Position Supine 05/29/19 12:15 Pulse Oximetry 85 L 05/29/19 14:40 Oxygen Delivery Method Room Air 05/29/19 12:15 Oxygen Flow Rate 0 05/29/19 12:15 Pain Level 5 05/29/19 12:49 Lab/Test Results Lab/Test Results: Laboratory Tests Range/Units 05/29/19 05/29/19 05/29/19 13:10 13:10 13:10 WBC (4.4-10.8) k/cumm 7.20 RBC (4.50-6.00) m/cumm 3.42 L Hgb (13.5-17.5) g/dL 11.3 L Hct (40.0-50.0) % 33.5 L MCV (80-95) fL 98.0 H MCH (27.0-33.0) pg 33.0 MCHC (32.0-36.0) g/dL 33.7 RDW (11.8-14.1) % 12.4 Plt Count (130-400) x1000/uL 264 MPV (8.0-11.0) fL 10.6 Immature Gran % % 0.4 Neutrophils % 66.4 Lymphocytes % 21.5 Monocytes % 8.6 Eosinophils % 2.5 Basophils % 0.6 Absolute Neutrophils (1.2-6.7) k/cumm 4.78 Absolute Lymphocytes (1.2-3.4) k/cumm 1.55 Absolute Monocytes (0.11-0.7) k/cumm 0.62 Absolute Eosinophils (0.0-0.7) k/cumm 0.18 Absolute Basophils (0.0-0.2) k/cumm 0.04 Sodium (136-145) mmol/L 138 Potassium (3.5-5.1) mmol/L 4.4 Chloride (98-107) mmol/L 103 Carbon Dioxide (21.0-32.0) mmol/L 26.6 Anion Gap (3-11) mmol/L 8.4 BUN (7-18) mg/dL 36 H D Creatinine (0.70-1.30) mg/dL 1.48 H Estimated GFR/1.73 m2 (mL/min/1.73m2) 47.55 Glucose (74-106) mg/dL 231 H Calcium (8.5-10.1) mg/dL 8.6 Magnesium (1.8-2.4) mg/dL 1.5 L Total Bilirubin (0.2-1.0) mg/dL 0.3 AST (15-37) U/L 26 ALT (16-63) U/L 29 Alkaline Phosphatase (46-116) U/L 84 Troponin I (<0.06) ng/Ml < 0.05 NT-Pro-B Natriuret Pep (<300) pg/mL 1105 H Total Protein (6.4-8.2) g/dL 6.1 L Albumin (3.4-5.0) g/dL 3.3 L
--- NOTE | 2019-05-29 15:02 | DI.VRAD_ITS ---
PROCEDURE INFORMATION: Exam: XR Chest, 2 Views Exam date and time: 05/29/2019 2:06 PM Age: 68 years old Clinical indication: Other: Cough TECHNIQUE: Imaging protocol: XR of the chest Views: 2 views. COMPARISON: CR XR PORTABLE CHEST AP 05/27/2019 12:24 PM FINDINGS: Lungs: Unremarkable. No consolidation. Pleural space: Unremarkable. No pleural effusion. No pneumothorax. Heart/Mediastinum: Top normal-sized cardiac silhouette. Bones/joints: Old healed right rib fractures are again noted. Median sternotomy wires. IMPRESSION: 1. No acute pulmonary findings. 2. Old healed rib fractures are again noted. Dictated and Authenticated by: Enrico Chavira MD. Ordering:ODETTE Beatty MD
[2019-05-29] MEDS: Clopidogrel 300 MG TAB PO (15:42)
[2019-05-29 16:48] LABS: Troponin I < 0.05 ng/Ml (<0.06)
== END 2019-05-29 17:10 | disposition short-term general hospital (02) ==
PROVIDERS: Emergency Provider Physician Assistant; PCP Nurse Practitioner Adult Health
DX: I20.0 Unstable angina (principal); I50.9 Heart failure, unspecified; R51 Headache; I13.0 Hypertensive heart and chronic kidney disease with heart failure and stage 1 through stage 4 chronic kidney disease, or unspecified chronic kidney disease; N18.9 Chronic kidney disease, unspecified; E11.9 Type 2 diabetes mellitus without complications; Z79.4 Long term (current) use of insulin; Z95.1 Presence of aortocoronary bypass graft
CPT/HCPCS: 36415; 80053; 93005; 96365; 96366; 96376; 99285; 71046; 83735; 83880; 84484; 85025; 93010

== ENCOUNTER 2019-06-10 11:31 | Outpatient (CLI) | payer MEDICARE, OTHER, SELFPAY ==
[2019-06-10 12:21] LABS: Hemoglobin A1C 9.4 % (3.8-5.6)
[2019-06-10 12:55] LABS: COMMENT (LAB VIEW ONLY) 26.84 mg/dL
[2019-06-10 12:56] LABS: Microalb ug/mg Crea 238.1 ug/mg Cr
[2019-06-10 13:27] LABS: ALT 35 U/L (16-63); AST 36 U/L (15-37); Albumin 4.2 g/dL (3.4-5.0); Alkaline Phosphatase 91 U/L (46-116); BUN 33 mg/dL (7-18); Bilirubin, Total 0.4 mg/dL (0.2-1.0); CREATININE 1.43 mg/dL (0.70-1.30); Calculated LDL 95 mg/dL (<100); Chloride 100 mmol/L (98-107); Cholesterol 170 mg/dL (<200); Estimated GFR 49.48 (mL/min/1.73m2); Glucose 131 mg/dL (74-106); HDL Cholesterol 31 mg/dL (40-60); Potassium 4.1 mmol/L (3.5-5.1); Sodium 141 mmol/L (136-145); TSH (W/Ref FT4) 5.01 uIU/mL (0.36-3.74); Total Protein 7.3 g/dL (6.4-8.2); Triglyceride 222 mg/dL (<150)
[2019-06-10 13:48] LABS: FREE T4 0.95 ng/dL (0.76-1.46)
== END 2019-06-10 11:51 ==
PROVIDERS: PCP Nurse Practitioner Adult Health; Visit Provider Nurse Practitioner Adult Health
DX: I10 Essential (primary) hypertension (principal); E11.9 Type 2 diabetes mellitus without complications; E03.9 Hypothyroidism, unspecified; N18.3 Chronic kidney disease, stage 3 (moderate); E78.2 Mixed hyperlipidemia; I25.110 Atherosclerotic heart disease of native coronary artery with unstable angina pectoris; E66.9 Obesity, unspecified
CPT/HCPCS: 36415; 80053; 80061; 82043; 82570; 83036; 84439; 84443

== ENCOUNTER 2019-06-22 07:56 | Outpatient (CLI) | payer MEDICARE, OTHER, SELFPAY | END 2019-06-22 08:16 | PROVIDERS: PCP Nurse Practitioner Adult Health; Visit Provider Internal Medicine Cardiovascular Disease | DX: I48.91 Unspecified atrial fibrillation (principal); I25.110 Atherosclerotic heart disease of native coronary artery with unstable angina pectoris; I10 Essential (primary) hypertension; E78.2 Mixed hyperlipidemia | CPT/HCPCS: 99214; 93005; 93010 ==

== ENCOUNTER → 2019-09-20 15:22 | Outpatient (BNVA) | payer MEDICARE, OTHER, SELFPAY | PROVIDERS: PCP Nurse Practitioner Adult Health; Referring Provider Nurse Practitioner Adult Health; Visit Provider Internal Medicine Cardiovascular Disease | DX: I25.110 Atherosclerotic heart disease of native coronary artery with unstable angina pectoris; I49.9 Cardiac arrhythmia, unspecified; I10 Essential (primary) hypertension | CPT/HCPCS: 99214; 99443 ==

== ENCOUNTER 2019-09-21 11:27 | Outpatient (CLI) | payer MEDICARE, OTHER, SELFPAY ==
--- NOTE | 2019-09-27 08:57 | W.HOLTRPT ---
Date of service: 09/27/19 Time of Service: 08:57 Holter Monitor Report Holter Monitor Note: Is a 48-hour Holter monitor ordered for the indication of arrhythmia. ?Patient was in normal sinus rhythm for majority of the recording. ?There were 0 episodes of SVT and rare PACs. ?There were 0 episodes of ventricular tachycardia and rare PVCs. ?The patient had 129 episodes of atrial fibrillation with the longest lasting almost 2 hours. Atrial fibrillation accounted for 35% of the recording. Maximal heart rate during atrial fibrillation was 84 bpm. ?There were no pauses greater than 3 seconds and no evidence of high degree heart block. ?To patient diary events were associate with atrial fibrillation and sinus tachycardia.
== END 2019-09-21 11:47 ==
PROVIDERS: PCP Nurse Practitioner Adult Health; Visit Provider Internal Medicine Cardiovascular Disease
DX: I49.9 Cardiac arrhythmia, unspecified (principal); I48.91 Unspecified atrial fibrillation
CPT/HCPCS: 93225

== ENCOUNTER 2019-09-23 14:07 | Outpatient (CLI) | payer MEDICARE, OTHER, SELFPAY | END 2019-09-23 14:27 | PROVIDERS: PCP Nurse Practitioner Adult Health; Visit Provider Nurse Practitioner Adult Health | DX: I49.9 Cardiac arrhythmia, unspecified (principal) | CPT/HCPCS: 93226 ==

== ENCOUNTER 2019-09-23 15:36 | Outpatient (REF) | payer MEDICARE, OTHER, SELFPAY ==
[2019-09-23 19:25] LABS: Anion Gap 9.1 mmol/L (3-11); BUN 39 mg/dL (7-18); CO2 26.9 mmol/L (21.0-32.0); CREATININE 1.76 mg/dL (0.70-1.30); Calcium 9.4 mg/dL (8.5-10.1); Chloride 102 mmol/L (98-107); Estimated GFR 38.94 (mL/min/1.73m2); Glucose 102 mg/dL (74-106); Potassium 3.9 mmol/L (3.5-5.1); Sodium 138 mmol/L (136-145)
== END 2019-09-23 15:56 ==
LOC: LBN 15:36
PROVIDERS: PCP Nurse Practitioner Adult Health; Visit Provider Nurse Practitioner Adult Health
DX: E11.40 Type 2 diabetes mellitus with diabetic neuropathy, unspecified (principal); Z79.4 Long term (current) use of insulin
CPT/HCPCS: 80048

== ENCOUNTER 2019-09-27 08:57 | Outpatient (CLI) | payer MEDICARE, OTHER, SELFPAY | END 2019-09-27 09:17 | PROVIDERS: PCP Nurse Practitioner Adult Health; Referring Provider Nurse Practitioner Adult Health; Visit Provider Internal Medicine Cardiovascular Disease | DX: I48.91 Unspecified atrial fibrillation (principal) | CPT/HCPCS: 93227 ==

== ENCOUNTER → 2019-10-28 14:37 | Outpatient (BNVA) | payer MEDICARE, OTHER, SELFPAY | PROVIDERS: PCP Nurse Practitioner Adult Health; Referring Provider Nurse Practitioner Adult Health; Visit Provider Urology | DX: N32.81 Overactive bladder (principal); E11.9 Type 2 diabetes mellitus without complications; Z79.4 Long term (current) use of insulin | CPT/HCPCS: 99213 ==

== ENCOUNTER 2019-11-07 14:16 | Emergency (ER) | payer MEDICARE, OTHER, SELFPAY ==
[2019-11-07 14:21] VITALS: BP 121/120; PULSE 65; RESP 24; TEMP 36.5; O2SAT 97
--- NOTE | 2019-11-07 14:32 | ED.GENADUL_ITS ---
Discharge Plan Disposition Patient Disposition: HOME Condition: Stable Discharge Details Chief Complaint: Laceration Clinical Impression: Laceration Primary Care Provider: Gina Bravo ED Provider: Marlen Mccarthy Home Meds and New Rx's Prescriptions: Continued Eliquis 5 mg tablet 5 mg PO BID Qty: 180 RF: 3 Jardiance 25 mg tablet 25 mg PO QAM Qty: 90 RF: 3 Lantus Solostar U-100 Insulin 100 unit/mL (3 mL) insulin pen 74 unit Sub-Q QPM Qty: 63 RF: 0 melatonin 5 mg capsule 5 mg PO HS PRN (Reason: sleep difficulty) RF: 0 Myrbetriq 50 mg tablet extended release 24 hr 50 mg PO DAILY Qty: 90 RF: 4 levothyroxine 50 MCG tablet 50 mcg PO DAILY Qty: 90 RF: 4 (DME) blood sugar diagnostic [FreeStyle Lite Strips] strip 1 ea Miscellaneous QID Qty: 360 RF: 5 (DME) pen needle, diabetic [BD Ultra-Fine Amber Pen Needle] 32 gauge x 5/32 needle 1 ea Miscellaneous QID Qty: 200 RF: 5 aspirin 81 mg tablet,delayed release (DR/EC) 81 mg PO DAILY RF: 0 metoprolol tartrate 25 mg tablet 25 mg PO BID Qty: 180 RF: 3 furosemide 40 mg tablet 40 mg PO DAILY Qty: 90 RF: 3 rosuvastatin 40 mg tablet 40 mg PO DAILY Qty: 90 RF: 3 nitroglycerin 0.4 mg tablet, sublingual 0.4 mg SL Q5M PRN (Reason: chest pain) Qty: 90 RF: 2 insulin aspart U-100 [Novolog Flexpen U-100 Insulin] 100 unit/mL (3 mL) insulin pen 10 - 30 unit Sub-Q AC Qty: 90 RF: 11 fenofibrate nanocrystallized [Tricor] 145 mg tablet 145 mg PO DAILY Qty: 90 RF: 3 amlodipine 10 mg tablet 10 mg PO DAILY Qty: 20 RF: 0 Discharge Instructions Instructions: Laceration (ED) Additional Instructions: Please return immediately to the emergency department if you develop any new or worsening symptoms, if your condition does not improve as expected, or if you become otherwise concerned. It is extremely important that you call soon as possible to make an appointment to be seen in follow-up for this visit by your primary care doctor. Referrals: Gina Bravo NP [Primary Care Provider] - Discharge Data Discharge Date/Time-TO BE ENTERED AT DEPARTURE: 11/07/19 15:00 Medical Decision Making Olaf Still is a 68-year-old man who presented to the emergency department with 3 day old laceration to the right thumb from mandolin, no complaints. On exam patient is very well and nontoxic-appearing. There is a laceration to the right distal thumb not involving the nail. Wound is clean, nonerythematous, no drainage, no edema. Healing well. There is full range of motion of the MCP and PIP without pain. There is no bony tenderness of the thumb. Plan for closure by secondary intention. Will place bacitracin and dressing. No indication for imaging at this point. Tetanus up-to-date. I had a lengthy discussion with Patient regarding return to emergency department precautions, home care, and importance of outpatient follow-up. Pt verbalizes understanding of the plan and is amenable. Patient discharged to home with clear plan for outpatient follow- up. All questions were answered. Disposition decision was made weighing the risks and benefits of hospitalization versus outpatient treatment, the risk for further decompensation, and the patient's wishes. Medical Records Medical records reviewed: Yes I reviewed the patient's medical records. HPI General Mode of arrival: ambulatory . Date/Time Provider Initiated Documentation: 11/07/19 14:22 . Limitations to Documentation: no limitations . Information obtained by: patient, RN notes reviewed and old records reviewed . HPI Narrative: Olaf Still is a 68-year-old man with a history of hyperlipidemia, hypothyroidism, diabetes presenting to the emergency department laceration. Patient reports that 3 days ago he was using a mandolin in his kitchen when he cut his right thumb. Patient reports that he had no other injuries at the time. He reports that he did not see exposed bone or tendon. Patient reports that he has been using a Band-Aid to cover the wound. He reports he has had no bleeding, no discharge, no redness around the wound. Patient reports that he was encouraged to come to the emergency department because his family was worried about the depth of the wound. Per patient he reports that has been healing well. He has no pain, no fever, no cough, no shortness of breath, no numbness, no weakness, no symptoms. Has been using his thumb as usual without issue. Related Data Home Medications Medication Instructions Recorded Confirmed levothyroxine 50 mcg PO DAILY #90 tab-cap 11/09/17 11/07/19 blood sugar diagnostic #360 strip 02/16/18 10/28/19 pen needle, diabetic 32 gauge x #200 each 11/16/18 10/28/19 amlodipine 10 mg PO DAILY #20 tab 05/28/19 11/07/19 aspirin 81 mg tablet,delayed 81 mg PO DAILY 06/02/19 11/07/19 release melatonin 5 mg capsule 5 mg PO HS PRN cap 06/10/19 11/07/19 metoprolol tartrate 25 mg tablet 25 mg PO BID #180 tab-cap 06/10/19 11/07/19 apixaban 5 mg tablet 5 mg PO BID #180 tab 06/22/19 11/07/19 furosemide 40 mg tablet 40 mg PO DAILY #90 tab 08/24/19 11/07/19 rosuvastatin 40 mg tablet 40 mg PO DAILY #90 tab 09/08/19 11/07/19 empagliflozin 25 mg tablet 25 mg PO QAM #90 tab 09/23/19 11/07/19 insulin glargine 100 unit/mL (3 74 unit SUB-Q QPM #63 ml 09/23/19 11/07/19 mL) subcutaneous pen nitroglycerin 0.4 mg sublingual 0.4 mg SL Q5M PRN #90 tab 10/10/19 11/07/19 tablet insulin aspart U-100 100 unit/mL 10 - 30 unit SUB-Q AC #90 ml 10/28/19 11/07/19 (3 mL) subcutaneous pen mirabegron 50 mg tablet,extended 50 mg PO DAILY #90 tab 10/28/19 11/07/19 release 24 hr fenofibrate nanocrystallized 145 145 mg PO DAILY #90 tab-cap 11/07/19 11/07/19 mg tablet Previous Rx's Medication Instructions Recorded levothyroxine 50 mcg PO DAILY #90 tab-cap 11/09/17 blood sugar diagnostic #360 strip 02/16/18 pen needle, diabetic 32 gauge x #200 each 11/16/18 amlodipine 10 mg PO DAILY #20 tab 05/28/19 metoprolol tartrate 25 mg tablet 25 mg PO BID #180 tab-cap 06/10/19 apixaban 5 mg tablet 5 mg PO BID #180 tab 06/22/19 furosemide 40 mg tablet 40 mg PO DAILY #90 tab 08/24/19 rosuvastatin 40 mg tablet 40 mg PO DAILY #90 tab 09/08/19 empagliflozin 25 mg tablet 25 mg PO QAM #90 tab 09/23/19 insulin glargine 100 unit/mL (3 74 unit SUB-Q QPM #63 ml 09/23/19 mL) subcutaneous pen nitroglycerin 0.4 mg sublingual 0.4 mg SL Q5M PRN #90 tab 10/10/19 tablet insulin aspart U-100 100 unit/mL 10 - 30 unit SUB-Q AC #90 ml 10/28/19 (3 mL) subcutaneous pen mirabegron 50 mg tablet,extended 50 mg PO DAILY #90 tab 10/28/19 release 24 hr fenofibrate nanocrystallized 145 145 mg PO DAILY #90 tab-cap 11/07/19 mg tablet Allergies Allergy/AdvReac Type Severity Reaction Status Date / Time No Known Allergies Allergy Verified 11/07/19 14:26 General Stated Complaint: Laceration CHRISTIANE: 4 Review of Systems Narrative: Constitutional: denies fevers Eyes: denies eye pain ENT: denies ear pain, dental pain, sore throat Cardiovascular: denies chest pain Respiratory: denies SOB, cough GI: denies abdominal pain, vomiting : denies flank pain MSK: denies back pain, neck pain, arthralgias Skin: denies rash Neuro: denies headaches, numbness, weakness [facility] Social History (Updated 10/03/19 @ 11:21 by Gina Bravo NP) Smoking/Tobacco Use Status: Former Tobacco Use Quit Date: 01/02/17 Pack-years: 40 Tobacco: How many years used: 40 Alcohol Intake: current Alcohol Intake frequency: a few times a week Alcohol type: beer and hard liquor Counseling given: Yes Counseling provided: reduce to 2 or less/day Details: 3-5 nights/wk drinks shot of hard liquor and multiple beers (3) Drug use: Never Substance use type: does not use Adopted: No Caregiver/Support person: No Foster care: No Household members: none and other Details: Cats Number of Children: 3 number of grandchildren: 4 Communication Needs: None Do you need help understanding health information?: Rarely Pets and animals: Yes Pets and animals: cat(s) Do you think of yourself as: straight/heterosexual Current gender identity: male What is your relationship status?: Panel score (0-1 are the most socially isolated patients): 0 What type of physical activity do you participate in: none Seatbelt use: always Drive intox 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 Exam Narrative Exam Narrative: Constitutional: well and [id number], pleasant, conversing normally HENT: head atraumatic/normocephalic/normal inspection, mucous membranes moist Eyes: conjunctiva normal, sclera normal, pupils 3mm b/l Neck: no stridor, normal ROM, trachea midline Resp: normal work of breathing, LCTAB Cardio: normal rate, normal rhythm, radial pulses intact and symmetric Skin: warm, dry, normal color, no rash Neuro: alert, not altered, grossly non-focal, normal tone Ext: laceration to the right distal thumb not involving the nail. Wound is clean, nonerythematous, no drainage, no edema. Healing well. There is full range of motion of the MCP and PIP without pain. There is no bony tenderness of the thumb. Brisk cap refill. Normal sensation of the distal thumb. Psych: normal mood, normal affect, normal behavior Course Vital Signs Vital signs: Vital Signs Temperature 36.5 C 11/07/19 14:21 Pulse 65 11/07/19 14:21 Respiratory Rate 24 11/07/19 14:21 Blood Pressure 121/120 H 11/07/19 14:21 Pulse Oximetry 97 11/07/19 14:21 Temperature 36.5 C 11/07/19 14:21 Temperature Source Skin 11/07/19 14:21 Pulse 65 11/07/19 14:21 Respiratory Rate 24 11/07/19 14:21 Respiratory Effort Incrsd Work of Breathing 11/07/19 14:27 Blood Pressure 121/120 H 11/07/19 14:21 Blood Pressure Position Sitting 11/07/19 14:21 Pulse Oximetry 97 11/07/19 14:21 Oxygen Delivery Method Room Air 11/07/19 14:21 Oxygen Flow Rate 0 11/07/19 14:21 Pain Level 0 11/07/19 14:30
== END 2019-11-07 15:00 | disposition home or self-care (01) ==
PROVIDERS: Emergency Provider Student in an Organized Health Care Education/Training Program; PCP Nurse Practitioner Adult Health
DX: S61.011A Laceration without foreign body of right thumb without damage to nail, initial encounter (principal); W26.8XXA Contact with other sharp object(s), not elsewhere classified, initial encounter; E11.9 Type 2 diabetes mellitus without complications; Z79.4 Long term (current) use of insulin; Z79.01 Long term (current) use of anticoagulants; I12.9 Hypertensive chronic kidney disease with stage 1 through stage 4 chronic kidney disease, or unspecified chronic kidney disease; N18.3 Chronic kidney disease, stage 3 (moderate)
CPT/HCPCS: 36416; 82962; 99282; 99283

== ENCOUNTER 2019-11-21 13:07 | Outpatient (CLI) | payer MEDICARE, OTHER, SELFPAY ==
--- NOTE | 2019-11-21 13:30 | DI.RAD_ITS ---
EXAM: XR HAND LT COMPLETE CLINICAL HISTORY: left hand pain x1m; assess bones; OA suspected MCP,M79.642. TECHNIQUE: 2D digital imaging was performed. COMPARISON: No exams were available for comparison FINDINGS: BONES: No acute fracture is present. No bony destructive lesion is seen. JOINTS: No dislocation present. Small marginal osteophytes are seen the interphalangeal joints of the hand. No periarticular erosions or osteopenia is noted. Mild degenerative changes are seen at the 1st carpometacarpal joint. SOFT TISSUE: Mild soft tissue swelling of the hand is noted. IMPRESSION: Mild osteoarthritis of the left hand. DATA REPOSITORY: RADIATION DOSE DELIVERED:
== END 2019-11-21 13:27 ==
PROVIDERS: PCP Nurse Practitioner Adult Health; Visit Provider Nurse Practitioner Adult Health
DX: M79.642 Pain in left hand (principal); M19.042 Primary osteoarthritis, left hand
CPT/HCPCS: 73130

== ENCOUNTER 2019-11-25 07:58 | Outpatient (CLI) | payer MEDICARE, OTHER, SELFPAY ==
[2019-11-29 15:35] LABS: SARS-CoV-2 RNA Undetected (Undetected); SARS-CoV-2 Specimen Source Nasopharynx
== END 2019-11-25 08:18 ==
PROVIDERS: PCP Nurse Practitioner Adult Health; Visit Provider Nurse Practitioner Adult Health
DX: Z11.59 Encounter for screening for other viral diseases (principal)
CPT/HCPCS: U0003

== ENCOUNTER 2019-12-08 20:07 | Emergency (ER) | payer MEDICARE, OTHER, SELFPAY ==
[2019-12-08 20:13] VITALS: BP 129/61; PULSE 66; RESP 18; TEMP 36.6; O2SAT 100
--- NOTE | 2019-12-08 20:23 | W.ED.GENAD ---
Discharge Plan Disposition Patient Disposition: HOME Condition: Stable Discharge Details Chief Complaint: Cellulitis Clinical Impression: Cellulitis of left leg Primary Care Provider: Gina Bravo ED Provider: Gaurav Banks Home Meds and New Rx's Prescriptions: New amoxicillin-pot clavulanate [Augmentin] 875-125 mg tablet 1 tab PO BID Qty: 14 RF: 0 Continued Eliquis 5 mg tablet 5 mg PO BID Qty: 180 RF: 3 Jardiance 25 mg tablet 25 mg PO QAM Qty: 90 RF: 3 Lantus Solostar U-100 Insulin 100 unit/mL (3 mL) insulin pen 74 unit Sub-Q QPM Qty: 63 RF: 0 melatonin 5 mg capsule 5 mg PO HS PRN (Reason: sleep difficulty) RF: 0 Myrbetriq 50 mg tablet extended release 24 hr 50 mg PO DAILY Qty: 90 RF: 4 levothyroxine 50 MCG tablet 50 mcg PO DAILY Qty: 90 RF: 4 (DME) FreeStyle Lite Strips strip 1 ea Miscellaneous QID Qty: 360 RF: 5 (DME) pen needle, diabetic [BD Ultra-Fine Amber Pen Needle] 32 gauge x 5/32 needle 1 ea Miscellaneous QID Qty: 200 RF: 5 aspirin 81 mg tablet,delayed release (DR/EC) 81 mg PO DAILY RF: 0 metoprolol tartrate 25 mg tablet 25 mg PO BID Qty: 180 RF: 3 furosemide 40 mg tablet 40 mg PO DAILY Qty: 90 RF: 3 rosuvastatin 40 mg tablet 40 mg PO DAILY Qty: 90 RF: 3 nitroglycerin 0.4 mg tablet, sublingual 0.4 mg SL Q5M PRN (Reason: chest pain) Qty: 90 RF: 2 insulin aspart U-100 [Novolog Flexpen U-100 Insulin] 100 unit/mL (3 mL) insulin pen 10 - 30 unit Sub-Q AC Qty: 90 RF: 11 fenofibrate nanocrystallized [Tricor] 145 mg tablet 145 mg PO DAILY Qty: 90 RF: 3 amlodipine 10 mg tablet 10 mg PO DAILY Qty: 20 RF: 0 Discharge Instructions Additional Instructions: you are being treated for a skin infection follow up with your primary care provider within a week for a recheck especially if not improving if you have spreading redness up or down the leg, severe pain or fevers return to the emergency department Medical Decision Making 69 yo male with multiple medical problems comes in with cc of left leg redness. He states he dropped a piece of plywood on his left mid anterior leg about 2 weeks ago and has been applying antibiotic ointment but tonight noticed some redness so came here. No fevers or pain. He has a healing 4cm woud in the area and about 0.5cm of surrounding faint erythema without much warmth or tenderness. No fluctuance or crepitus. Could be just a healing wound but given he has DM and he thinks it is more red today will treat as possible cellulitis. HE is stable for outpatient tx and advised f/u with pcp with return precautions Differential Diagnosis Differential Diagnosis: cellulitis, healing wound HPI General Mode of arrival: ambulatory. Date/Time Provider Initiated Documentation: 12/08/19 20:11. Limitations to Documentation: no limitations. Information obtained by: patient. History of Present Illness 69 year old M presents to the emergency department with the chief complaint of left leg redness, described as moderate, and it has been constant. No relieving factors improve symptom(s), No exacerbating factors reported . Patient did receive the following treatments prior to arrival, none Related Data Home Medications Medication Instructions Recorded Confirmed levothyroxine 50 mcg PO DAILY #90 tab-cap 11/09/17 11/19/19 blood sugar diagnostic #360 strip 02/16/18 11/19/19 pen needle, diabetic 32 gauge x #200 each 11/16/18 11/19/19/32 amlodipine 10 mg PO DAILY #20 tab 05/28/19 11/19/19 aspirin 81 mg tablet,delayed 81 mg PO DAILY 06/02/19 11/19/19 release melatonin 5 mg capsule 5 mg PO HS PRN cap 06/10/19 11/19/19 metoprolol tartrate 25 mg tablet 25 mg PO BID #180 tab-cap 06/10/19 11/19/19 apixaban 5 mg tablet 5 mg PO BID #180 tab 06/22/19 11/19/19 furosemide 40 mg tablet 40 mg PO DAILY #90 tab 08/24/19 11/19/19 rosuvastatin 40 mg tablet 40 mg PO DAILY #90 tab 09/08/19 11/19/19 empagliflozin 25 mg tablet 25 mg PO QAM #90 tab 09/23/19 11/19/19 insulin glargine 100 unit/mL (3 74 unit SUB-Q QPM #63 ml 09/23/19 11/19/19 mL) subcutaneous pen nitroglycerin 0.4 mg sublingual 0.4 mg SL Q5M PRN #90 tab 10/10/19 11/19/19 tablet insulin aspart U-100 100 unit/mL 10 - 30 unit SUB-Q AC #90 ml 10/28/19 11/19/19 (3 mL) subcutaneous pen mirabegron 50 mg tablet,extended 50 mg PO DAILY #90 tab 10/28/19 11/19/19 release 24 hr fenofibrate nanocrystallized 145 145 mg PO DAILY #90 tab-cap 11/07/19 11/19/19 mg tablet amoxicillin-pot clavulanate 1 tab PO BID #14 tab 12/08/19 [Augmentin] Previous Rx's Medication Instructions Recorded levothyroxine 50 mcg PO DAILY #90 tab-cap 11/09/17 blood sugar diagnostic #360 strip 02/16/18 pen needle, diabetic 32 gauge x #200 each 11/16/18 amlodipine 10 mg PO DAILY #20 tab 05/28/19 metoprolol tartrate 25 mg tablet 25 mg PO BID #180 tab-cap 06/10/19 apixaban 5 mg tablet 5 mg PO BID #180 tab 06/22/19 furosemide 40 mg tablet 40 mg PO DAILY #90 tab 08/24/19 rosuvastatin 40 mg tablet 40 mg PO DAILY #90 tab 09/08/19 empagliflozin 25 mg tablet 25 mg PO QAM #90 tab 09/23/19 insulin glargine 100 unit/mL (3 74 unit SUB-Q QPM #63 ml 09/23/19 mL) subcutaneous pen nitroglycerin 0.4 mg sublingual 0.4 mg SL Q5M PRN #90 tab 10/10/19 tablet insulin aspart U-100 100 unit/mL 10 - 30 unit SUB-Q AC #90 ml 10/28/19 (3 mL) subcutaneous pen mirabegron 50 mg tablet,extended 50 mg PO DAILY #90 tab 10/28/19 release 24 hr fenofibrate nanocrystallized 145 145 mg PO DAILY #90 tab-cap 11/07/19 mg tablet amoxicillin-pot clavulanate 1 tab PO BID #14 tab 12/08/19 [Augmentin] Allergies Allergy/AdvReac Type Severity Reaction Status Date / Time No Known Allergies Allergy Verified 12/08/19 20:20 General Stated Complaint: Cellulitis CHRISTIANE: 4 Review of Systems All systems reviewed & are unremarkable except as noted in HPI and below Constitutional Constitutional: Denies chills, Denies fever(s) and Denies weakness Cardiovascular Cardiovascular: Denies chest pain and Denies dyspnea Respiratory Respiratory: Denies cough and Denies dyspnea Gastrointestinal Gastrointestinal: Denies abdominal pain, Denies nausea and Denies vomiting Musculoskeletal Musculoskeletal: Denies joint swelling Neurologic Neurologic: Denies weakness Psychiatric Psychiatric: Denies depression [facility] Medical History (Updated 12/08/19 @ 20:24 by Gaurav Banks MD) Acquired hypothyroidism (Acute 10/28/16) Arthritis of both knees (Chronic) Atypical chest pain (Acute 06/22/14) a. ? cardiac in origina vs. related to untreated sleep apnea Bursitis of shoulder, right, adhesive (Inactive 04/06/15) Cervical disc disorder with myelopathy (Acute) right arm Chronic and recurrent low back pain (Inactive) L4-[address] scan in 1993, recurrent since then intermittently. 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 Hypothyroidism Kidney stone (Inactive) calcium oxylate Low back pain (Inactive) L4-[address] Maisonneuve fracture of left fibula (Inactive 05/07/16) Nicotine dependence (Inactive) Cessated Obesity (Acute) MERRITT (obstructive sleep apnea) (Chronic) Bi-PAP 07/23/19 Overactive bladder (Acute) Oxybutynin, discontinued 06/24/19 in favor of optimizing DMT2 management Pipe smoker (Inactive) Sedentary lifestyle (Chronic) Sensorineural hearing loss, bilateral (Chronic 02/15/15) No hearing aids Tendinitis of right shoulder (Inactive) Umbilical hernia (Inactive) Recurrent x 2, repaired x 3. Uncontrolled diabetes mellitus (Acute) Surgical History Appendectomy Colonoscopy - IV Sedation Extraction of cataract 11/23/14; DR. GOINS; RIGHT EYE 12/07/14; DR. GOINS; LEFT EYE Fracture, Open Treatment ORIF-LEFT SYNDESMOSIS WITH TWO SCREWS History of cataract removal with insertion of prosthetic lens (Inactive 11/23/14) History of umbilical hernia repair (Inactive) Repair of umbilical hernia S/P cardiac catheterization (Acute 05/31/19) Status post appendectomy (Inactive) Status post coronary artery bypass with autogenous graft, three grafts (Inactive 03/12/17) 2017 Status post coronary artery stent placement (Inactive 09/26/16) One vessel for unstable angina Family History Father Diabetes Dementia Neoplasm PANCREATIC Social History Smoking/Tobacco Use Status: Former Tobacco Use Quit Date: 01/02/17 Pack-years: 40 Tobacco: How many years used: 40 Alcohol Intake: current Alcohol Intake frequency: a few times a week Alcohol type: beer and hard liquor Counseling given: Yes Counseling provided: reduce to 2 or less/day Details: 3-5 nights/wk drinks shot of hard liquor and multiple beers (3) Drug use: Never Substance use type: does not use Adopted: No Caregiver/Support person: No Foster care: No Household members: none and other Details: Cats Number of Children: 3 number of grandchildren: 4 Communication Needs: None Do you need help understanding health information?: Rarely Pets and animals: Yes Pets and animals: cat(s) Do you think of yourself as: straight/heterosexual Current gender identity: male What is your relationship status?: Panel score (0-1 are the most socially isolated patients): 0 What type of physical activity do you participate in: none Seatbelt use: always Drive intox 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 Exam Const General: no acute distress Orientation: alert HENMT Head: normal to inspection Ears: external ears normal General nose exam: external nose normal Mouth: moist mucous membranes Eyes General: appearance normal, both eyes and all related structures Neck Neck: normal visual inspection Resp Effort & Inspection: normal respiratory effort and able to speak in complete sentences Cardio Rate: regular rate Skin General skin exam: no jaundice Neuro General: patient alert and patient oriented x3 Extrem General: full ROM Psych Mental Status: mental status grossly normal Course Vital Signs Vital signs: Vital Signs Temperature 36.6 C 12/08/19 20:13 Pulse 66 12/08/19 20:13 Respiratory Rate 18 12/08/19 20:13 Blood Pressure 129/61 12/08/19 20:13 Pulse Oximetry 100 12/08/19 20:13 Temperature 36.6 C 12/08/19 20:13 Temperature Source Skin 12/08/19 20:13 Pulse 66 12/08/19 20:13 Respiratory Rate 18 12/08/19 20:13 Blood Pressure 129/61 12/08/19 20:13 Blood Pressure Position Sitting 12/08/19 20:13 Pulse Oximetry 100 12/08/19 20:13 Oxygen Delivery Method Room Air 12/08/19 20:13 Oxygen Flow Rate 0 12/08/19 20:13 Pain Level 4 12/08/19 20:13
[2019-12-08] MEDS: Amoxicillin 875/Clav. 125 TAB PO (20:28)
== END 2019-12-08 20:30 | disposition home or self-care (01) ==
LOC: ER 20:27
PROVIDERS: Emergency Provider Emergency Medicine; PCP Nurse Practitioner Adult Health
DX: L03.116 Cellulitis of left lower limb (principal); S81.812A Laceration without foreign body, left lower leg, initial encounter; W20.8XXA Other cause of strike by thrown, projected or falling object, initial encounter; E11.65 Type 2 diabetes mellitus with hyperglycemia; Z79.4 Long term (current) use of insulin; I10 Essential (primary) hypertension
CPT/HCPCS: 99283

== ENCOUNTER 2020-03-26 03:48 | Outpatient (CLI) | payer MEDICARE, OTHER, SELFPAY ==
[2020-03-27 18:05] LABS: Patient Race White; SARS-CoV-2 RNA Undetected (Undetected); SARS-CoV-2 Specimen Source Nasal
== END 2020-03-26 04:08 ==
PROVIDERS: PCP Nurse Practitioner Adult Health; Visit Provider Nurse Practitioner Adult Health
DX: Z11.59 Encounter for screening for other viral diseases (principal)
CPT/HCPCS: U0003

== ENCOUNTER 2020-06-26 02:35 | Outpatient (CLI) | payer MEDICARE, OTHER, SELFPAY ==
[2020-06-26 14:37] LABS: Microalb ug/mg Crea 75.3 ug/mg Cr
[2020-06-26 15:13] LABS: ALT 35 U/L (16-63); AST 30 U/L (15-37); Albumin 4.4 g/dL (3.4-5.0); Alkaline Phosphatase 85 U/L (46-116); Anion Gap 12.2 mmol/L (3-11); BUN 36 mg/dL (7-18); Bilirubin, Total 0.5 mg/dL (0.2-1.0); CO2 27.8 mmol/L (21.0-32.0); CREATININE 1.6 mg/dL (0.70-1.30); Calcium 9.6 mg/dL (8.5-10.1); Calculated LDL 84 mg/dL (<100); Chloride 102 mmol/L (98-107); Cholesterol 164 mg/dL (<200); Estimated GFR 43.33 (mL/min/1.73m2); Glucose 106 mg/dL (74-106); HDL Cholesterol 35 mg/dL (40-60); Potassium 4.1 mmol/L (3.5-5.1); Sodium 142 mmol/L (136-145); TSH (W/Ref FT4) 3.37 uIU/mL (0.36-3.74); Total Protein 7.8 g/dL (6.4-8.2); Triglyceride 225 mg/dL (<150)
== END 2020-06-26 02:36 | disposition home or self-care (01) ==
PROVIDERS: PCP Nurse Practitioner Adult Health; Visit Provider Nurse Practitioner Adult Health
DX: E03.9 Hypothyroidism, unspecified (principal); I10 Essential (primary) hypertension; E78.5 Hyperlipidemia, unspecified; E11.40 Type 2 diabetes mellitus with diabetic neuropathy, unspecified; Z79.4 Long term (current) use of insulin; I48.91 Unspecified atrial fibrillation; E66.9 Obesity, unspecified
CPT/HCPCS: 36415; 80053; 80061; 99214; 82043; 82570; 83036; 84443

== ENCOUNTER 2020-07-16 12:02 | Observation (INO) | payer MEDICARE, OTHER, SELFPAY ==
[2020-07-16] VITALS (72 sets, daily range): BP systolic 130–154; BP diastolic 36–89; PULSE 47–91; RESP 12–32; TEMP 36.3–36.5; O2SAT 90–99
--- NOTE | 2020-07-16 12:30 | RT.EKG_ITS ---
APPROVED REPORT Exam: Resting ECG Patient Location: E HR:54 bpm ECG Measurements Heart Rate 54 AXIS UT 271 P -34 QRSd 151 QRS -62 QT 486 T 34 QTc 463 Conclusion Sinus bradycardia...rate< 60 Prolonged UT interval...UT >220, V-rate 50- 90 RBBB and LAFB...QRSd >120mS, axis(-40,240) sinus bradycardia at 54 with first-degree AV block, right bundle branch block and left anterior fasci cular block seen on prior, no acute ischemic changes, nondiagnostic EKG
--- NOTE | 2020-07-16 13:20 | ED.GENADUL_ITS ---
Discharge Plan Disposition Patient Disposition: [facility] INPATIENT Condition: Stable Discharge Details Clinical Impression: Chest pain, exertional Admit Date/Time: 07/16/20 17:55 Admit Provider: Skyler Zaman Attending Provider: Skyler Zaman Primary Care Provider: Gina Bravo ED Provider: Lucas Jacobs Discharge Data Discharge Date/Time-TO BE ENTERED AT DEPARTURE: 07/16/20 18:54 Medical Decision Making <Marlen Mccarthy MD - Last Filed: 07/25/20 16:11> Olaf Still is a 69-year-old man who presented to the emergency department with shortness of breath and chest pressure since last night worse with exertion and improved with rest. On exam patient is well and nontoxic-appearing. Benign cardiopulmonary exam. There is +1 bilateral lower extremity edema without posterior calf tenderness to palpation. Concern for acute coronary syndrome, pulmonary embolism, Covid, other pneumonia, other. Exam/history at this time is not consistent with acute aortic pathology, sepsis. EKG shows no STEMI, no major change from prior, nondiagnostic. Plan for telemetry, screening labs, IV placement, imaging pending D-dimer. Labs reviewed. D-dimer elevated, plan for CT chest. Initial troponin negative. Labs nondiagnostic. Plan for repeat troponin. Patient is not low risk by HEART score, concern for unstable angina. Pt signed out at time of shift change to Dr. Jacobs with repeat trop, CT pending. Anticipate admission. Medical Records Medical records reviewed: Yes I reviewed the patient's medical records. Imaging Data Radiologic Study: Attestation: I personally reviewed and interpreted this imaging study as follows: Lab Data Lab results reviewed: Yes I reviewed the patient's lab results. ECG Data Attestation: I personally reviewed and interpreted this ECG (s) as follows: Interpretation: EKG shows sinus bradycardia at 54 with first-degree AV block, right bundle branch block and left anterior fascicular block seen on prior, no acute ischemic changes, nondiagnostic EKG <Lucas Jacobs DO - Last Filed: 07/16/20 17:25> Case was signed out to me by my colleague Yadira Mccarthy. Please refer to her HPI, physical exam, assessment and plan. At time of transition we are awaiting repeat troponin and CT scan. CT is returned and per virtual radiology there is no evidence of aneurysm, PE, pneumonia dissection. Repeat troponin has returned normal. Patient remains chest pain-free. 325 aspirin was given. The patient exertional symptoms notably with rest I do feel he would benefit from further evaluation and stress testing. I did contact Dr. Zaman, he agrees with the assessment and plan. Discussed the case with his family as well, they agree. I have extensively reviewed the treatment plan and discharge instructions with the patient. I have addressed all patient concerns at this time. The patient was made aware of what symptoms to monitor for that would warrant a return to the emergency department. Discussed the plan with the patient, they demonstrate verbal understanding and agreement with our assessment and plan at this time. The documentation in this chart was dictated using [employer] dictation software. Please excuse any dictation errors. FINDINGS: Pulmonary arteries: No evidence of pulmonary embolus to the segmental level. Aorta: No aneurysm of the aorta. No dissection of the aorta. Lungs: Unremarkable. No consolidation. No masses. Pleural spaces: Unremarkable. No pneumothorax. No pleural effusion. Heart: Unremarkable. No cardiomegaly. No pericardial effusion. Lymph nodes: Unremarkable. No enlarged lymph nodes. Bones/joints: Median sternotomy Multiple unhealed right rib fractures. They are corticated consistent with nonunions . Soft tissues: Unremarkable. IMPRESSION: 1. No evidence of pulmonary embolus to the segmental level. 2. No aneurysm of the aorta. 3. No dissection of the aorta. Thank you for allowing us to participate in the care of your patient. Dictated and Authenticated by: Toña Starr MD 07/16/2020 4:54 PM Eastern Time ([place] & [place]) HPI <Marlen Mccarthy MD - Last Filed: 07/25/20 16:11> General Mode of arrival: ambulatory . Date/Time Provider Initiated Documentation: 07/16/20 13:04 . Limitations to Documentation: no limitations . Information obtained by: patient, RN notes reviewed and old records reviewed . HPI Narrative: Olaf Still is a 69-year-old man with a history of A. fib, diabetes, CKD, coronary artery disease status post bypass, hypertension, hyperlipidemia presenting to emergency department with shortness of breath and chest pain. Patient reports that his symptoms began yesterday. Patient reports that he walks on a treadmill several times a week and has been doing so without issue until yesterday. Patient felt that he could not walk on his treadmill as usual yesterday because he is was very fatigued. He then developed mild shortness of breath and a sensation of chest pressure yesterday evening. Chest pressure was worse with exertion and improved with rest. Patient reports that he went to walk on his treadmill this morning and had to stop almost immediately because he developed a sensation of chest pressure. This resolved when he rested. Patient reports that while lying in bed he currently has no symptoms, denies any chest pressure, shortness of breath, any other pain, vomiting, diarrhea, fever, numbness, weakness. He does report that he has had intermittent productive cough over the past week. Has been eating and drinking as usual. Related Data Home Medications Medication Instructions Recorded Confirmed pen needle, diabetic 32 gauge x #200 each 11/16/18 07/16/20 aspirin 81 mg tablet,delayed 81 mg PO DAILY 06/02/19 07/16/20 release melatonin 5 mg capsule 5 mg PO HS PRN cap 06/10/19 07/16/20 furosemide 40 mg tablet 40 mg PO DAILY #90 tab 08/24/19 07/16/20 rosuvastatin 40 mg tablet 40 mg PO DAILY #90 tab 09/08/19 07/16/20 empagliflozin 25 mg tablet 25 mg PO QAM #90 tab 09/23/19 07/16/20 nitroglycerin 0.4 mg sublingual 0.4 mg SL Q5M PRN #90 tab 10/10/19 07/16/20 tablet insulin aspart U-100 100 unit/mL 10 - 30 unit SUB-Q AC #90 ml 10/28/19 07/16/20 (3 mL) subcutaneous pen mirabegron 50 mg tablet,extended 50 mg PO DAILY #90 tab 10/28/19 07/16/20 release 24 hr fenofibrate nanocrystallized 145 145 mg PO DAILY #90 tab-cap 11/07/19 07/16/20 mg tablet amlodipine 10 mg tablet 10 mg PO DAILY #90 tab 05/28/20 07/16/20 levothyroxine 50 mcg tablet 50 mcg PO DAILY #90 tab-cap 05/28/20 07/16/20 metoprolol tartrate 25 mg tablet 25 mg PO BID #180 tab-cap 05/28/20 07/16/20 blood sugar diagnostic #400 ea 06/13/20 07/16/20 apixaban 5 mg tablet 5 mg PO BID #180 tab 06/20/20 07/16/20 insulin glargine 100 unit/mL (3 74 unit SUB-Q QPM #63 ml 06/20/20 07/16/20 mL) subcutaneous pen Previous Rx's Medication Instructions Recorded pen needle, diabetic 32 gauge x #200 each 11/16/18 furosemide 40 mg tablet 40 mg PO DAILY #90 tab 08/24/19 rosuvastatin 40 mg tablet 40 mg PO DAILY #90 tab 09/08/19 empagliflozin 25 mg tablet 25 mg PO QAM #90 tab 09/23/19 nitroglycerin 0.4 mg sublingual 0.4 mg SL Q5M PRN #90 tab 10/10/19 tablet insulin aspart U-100 100 unit/mL 10 - 30 unit SUB-Q AC #90 ml 10/28/19 (3 mL) subcutaneous pen mirabegron 50 mg tablet,extended 50 mg PO DAILY #90 tab 10/28/19 release 24 hr fenofibrate nanocrystallized 145 145 mg PO DAILY #90 tab-cap 11/07/19 mg tablet amlodipine 10 mg tablet 10 mg PO DAILY #90 tab 05/28/20 levothyroxine 50 mcg tablet 50 mcg PO DAILY #90 tab-cap 05/28/20 metoprolol tartrate 25 mg tablet 25 mg PO BID #180 tab-cap 05/28/20 blood sugar diagnostic #400 ea 06/13/20 apixaban 5 mg tablet 5 mg PO BID #180 tab 06/20/20 insulin glargine 100 unit/mL (3 74 unit SUB-Q QPM #63 ml 06/20/20 mL) subcutaneous pen Allergies Allergy/AdvReac Type Severity Reaction Status Date / Time No Known Allergies Allergy Verified 06/26/20 14:17 General Stated Complaint: SOB CHRISTIANE: 2 Review of Systems <Marlen Mccarthy MD - Last Filed: 07/25/20 16:11> Narrative: Constitutional: denies fevers Eyes: denies eye pain ENT: denies ear pain, dental pain, sore throat Cardiovascular: Reports chest pain, lower leg edema somewhat worse than baseline Respiratory: Reports SOB, cough GI: denies abdominal pain, vomiting, diarrhea : denies flank pain MSK: denies back pain, neck pain, arthralgias, myalgias Skin: denies rash Neuro: denies headaches, numbness, weakness PFSH <Marlen Mccarthy MD - Last Filed: 07/25/20 16:11> Medical History Acquired hypothyroidism (10/28/16) Arthritis of both knees Atypical chest pain (06/22/14) a. ? cardiac in origina vs. related to untreated sleep apnea Bursitis of shoulder, right, adhesive (04/06/15) Cervical disc disorder with myelopathy right arm Chronic and recurrent low back pain L4-[address] scan in 1993, recurrent since then intermittently. Current use of insulin Depressive disorder marital issues Diabetes mellitus type 2 in obese Diabetes mellitus with neuropathy Reduced monofilament 06/24/2019 Erectile dysfunction of organic origin (08/07/15) atrophic testicles, testosterone RX Essential hypertension Essential hypertension (01/31/13) H/O renal calculi History of nicotine dependence Hyperlipidemia (08/17/12) Hypomagnesemia (06/22/14) Only 1.0 in the ER today. Hypothyroidism Kidney stone calcium oxylate Low back pain L4-[address] [place]uve fracture of left fibula (05/07/16) Nicotine dependence Cessated Obesity MERRITT (obstructive sleep apnea) Bi-PAP 07/23/19 Overactive bladder Oxybutynin, discontinued 06/24/19 in favor of optimizing DMT2 management Pipe smoker Sensorineural hearing loss, bilateral (02/15/15) No hearing aids Tendinitis of right shoulder Umbilical hernia Recurrent x 2, repaired x 3. Uncontrolled diabetes mellitus Surgical History Appendectomy Colonoscopy - IV Sedation Extraction of cataract 11/23/14; DR. GOINS; RIGHT EYE 12/07/14; DR. GOINS; LEFT EYE Fracture, Open Treatment ORIF-LEFT SYNDESMOSIS WITH TWO SCREWS History of cataract removal with insertion of prosthetic lens (11/23/14) History of umbilical hernia repair Repair of umbilical hernia S/P cardiac catheterization (05/31/19) Status post appendectomy Status post coronary artery bypass with autogenous graft, 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) 2017 Status post coronary artery stent placement (05/26/17) One vessel for unstable angina Family History Father Diabetes Dementia Neoplasm PANCREATIC Social History Smoking/Tobacco Use Status: Former Tobacco Use Quit Date: 01/02/17 Pack-years: 40 Tobacco: How many years used: 40 Smoking risk assessment performed?: Yes Alcohol Intake: current Alcohol Intake frequency: a few times a week Alcohol type: beer and hard liquor Counseling given: Yes Counseling provided: reduce to 2 or less/day Details: 3-5 nights/wk drinks shot of hard liquor and multiple beers (3) Drug use: Never Substance use type: does not use Adopted: No Caregiver/Support person: No Foster care: No Household members: none and other Details: Cats Number of Children: 3 number of grandchildren: 4 Communication Needs: None Do you need help understanding health information?: Rarely Pets and animals: Yes Pets and animals: cat(s) Do you think of yourself as: straight/heterosexual Current gender identity: male What is your relationship status?: Panel score (0-1 are the most socially isolated patients): 0 What type of physical activity do you participate in: none Seatbelt use: always Drive 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 Exam <Marlen Mccarthy MD - Last Filed: 07/25/20 16:11> Narrative Exam Narrative: Constitutional: well and [id number], pleasant, conversing normally HENT: head atraumatic/normocephalic/normal inspection, mucous membranes moist Eyes: conjunctiva normal, sclera normal, pupils 3mm b/l Neck: no stridor, normal ROM, trachea midline Chest: normal inspection Resp: normal work of breathing, LCTAB Cardio: normal rate, normal rhythm, no murmur appreciated GI: abdomen soft, non-tender, non-distended Back: normal inspection, no rash Skin: warm, dry, normal color, no rash Neuro: alert, not altered, grossly non-focal, normal tone Ext: + 1 edema bilateral lower extremities, no posterior calf tenderness palpation Psych: normal mood, normal affect, normal behavior Course <Marlen Mccarthy MD - Last Filed: 07/25/20 16:11> Vital Signs Vital signs: Vital Signs Temperature 36.5 C 07/16/20 12:43 Pulse 56 L 07/16/20 12:43 Respiratory Rate 20 07/16/20 12:43 Blood Pressure 130/36 L 07/16/20 12:43 Pulse Oximetry 95 07/16/20 12:43 Temperature 36.5 C 07/16/20 12:43 Temperature Source Temporal Artery Scan 07/16/20 12:43 Pulse 56 L 07/16/20 12:43 Respiratory Rate 14 07/16/20 13:02 Respiratory Effort Incrsd Work of Breathing 07/16/20 13:02 Respiratory Depth Shallow 07/16/20 13:02 Blood Pressure 130/36 L 07/16/20 12:43 Blood Pressure Position Supine 07/16/20 12:43 Pulse Oximetry 95 07/16/20 12:43 Oxygen Delivery Method Room Air 07/16/20 12:43 Oxygen Flow Rate 0 07/16/20 12:43 Pain Level 5 07/16/20 12:43 Sign Out <Marlen Mccarthy MD - Last Filed: 07/25/20 16:11> Sign Out Data: Sign Out Comment: Patient here with exertional shortness of breath and chest pain new since last night, history of CABG and multiple cardiac risk factors. No shortness of breath or chest pain while at rest. Patient is signed out pending repeat troponin and CT chest, anticipate admission for possible ACS. Last updated by Marlen Mccarthy MD at 07/16/20 16:03
[2020-07-16 13:41] LABS: Abs Immature Grans 0.05 10^3/uL (0.0-0.06); Absolute Eosinophil Count 0.09 10^3/uL (0.0-0.7); Absolute Lymphocyte Count 1.25 10^3/uL (1.2-3.4); Basophils % 0.3; Eosinophils % 0.8; HCT 38.1 % (40.0-50.0); HGB 12.3 g/dL (13.5-17.5); Immature Grans % 0.4; Lymphocytes % 10.8; MCH 32.5 pg (27.0-33.0); MCHC 32.3 % (32.0-36.0); MCV 100.8 fL (80-95); MPV 11.9 fL (8.0-11.0); Neutrophils % 79.7; Nucleated RBC 0 %; RBC 3.78 10^6/uL (4.36-5.78); RDW 12.8 % (11.8-14.1); RDW-SD 47.3 fL; WBC 11.56 10^3/uL (4.4-10.8)
[2020-07-16 13:45] LABS: Absolute Basophil Count 0.03 10^3/uL (0.0-0.2); Absolute Monocyte Count 0.92 10^3/uL (0.1-0.8); Absolute Neutrophil Count 9.21 10^3/uL (1.2-6.7)
[2020-07-16 14:01] LABS: ALT 35 U/L (16-63); AST 46 U/L (15-37); Albumin 3.7 g/dL (3.4-5.0); Alkaline Phosphatase 75 U/L (46-116); Anion Gap 10.5 mmol/L (3-11); BUN 31 mg/dL (7-18); Bilirubin, Total 0.8 mg/dL (0.2-1.0); CO2 24.5 mmol/L (21.0-32.0); CREATININE 1.7 mg/dL (0.70-1.30); Calcium 8.9 mg/dL (8.5-10.1); Chloride 104 mmol/L (98-107); Glucose 152 mg/dL (74-106); NT-proBNP 3059 pg/mL (<300); Potassium 4.9 mmol/L (3.5-5.1); Sodium 139 mmol/L (136-145); Total Protein 7.5 g/dL (6.4-8.2); Troponin I < 0.05 ng/mL (<0.06)
[2020-07-16 14:03] LABS: Diff Comment Diff Reviewed
[2020-07-16 14:04] LABS: Macrocytosis 2+
[2020-07-16 14:06] LABS: D-Dimer 541 ng/mlFEU (<500)
--- NOTE | 2020-07-16 15:00 | DI.CT_ITS ---
EXAM: CT CHEST PE CTA CLINICAL HISTORY: chest pain, SOB. TECHNIQUE: Imaging Protocol: Axial CT angiography was performed with multi-slice acquisition and mu lti-planar and/or 3D reconstructions. CONTRAST MATERIAL: Intravenous: Omnipaque 350 Contrast volume:structured data in ml COMPARISON: CT RENAL COLIC WO CONTRAST from 05/08/2015 CR,XR XR CHEST 2V PA LATERAL from 05/29/2019 FINDINGS: CT angiography of the chest was performed with intravenous infusion of 100 cc of Omnipaque 350. There is significant motion artifact which limits interpretation. Cardiac size is upper limits of. Prior sternotomy and presumed CABG surgery noted. The lungs are predominantly clear, motion artifact limited assessment.. No pleural effusion. Tracheo bronchial tree appears intact. No evidence of pulmonary embolic disease. Thoracic aorta is of normal diameter, no thoracic aortic an eurysm or dissection, major branch vessels appear intact. No mediastinal or hilar adenopathy. Images obtained through the upper abdomen show probable hepatomegaly, grossly unremarkable appearance of visualized portions of the spleen and liver. IMPRESSION: Negative CT angiogram of the chest. No evidence of pulmonary embolic disease. RADIATION DOSE DELIVERED: 615.78mGy.cm Total DLP 615.78mGy.cm Total DLP DATA REPOSITORY: All CT scans at this facility are submitted to the National Radiology Data Registry (NRDR) Dose Index Registry (DIR) with the [employer] (A[employer]). RADIATION OPTIMIZATION: All CT scans at this facility use at least one of these dose optimization te chniques: automated exposure control; mA and/or kV adjustment per patient size (includes targeted exa ms where dose is matched to clinical indication); or iterative reconstruction.
--- NOTE | 2020-07-16 16:00 | RT.EKG_ITS ---
APPROVED REPORT Exam: Resting ECG Patient Location: E HR:58 bpm ECG Measurements Heart Rate 58 AXIS IN [id number] P [id number] QRSd 159 QRS -61 QT 506 T 54 QTc 495 Conclusion Atrial fibrillation...V-rate 52- 61, irreg A-activity RBBB and LAFB...QRSd >120mS, axis(-40,240) Physician: No stemi, unchanged from earlier EKG
[2020-07-16] MEDS: Omnipaque 350 MG/ML 100 ML BTL IJ (16:15)
[2020-07-16] MEDS: Normal Saline - Diluent 50 ML VIAL IV (16:16)
[2020-07-16 16:42] LABS: Source Nasal/Nares
[2020-07-16 16:52] LABS: Troponin I < 0.05 ng/mL (<0.06)
--- NOTE | 2020-07-16 16:55 | DI.VRAD_ITS ---
PROCEDURE INFORMATION: Exam: CT Angiography Chest With Contrast Exam date and time: 07/16/2020 3:08 PM Age: 69 years old Clinical indication: Shortness of breath TECHNIQUE: Imaging protocol: Computed tomographic angiography of the chest with contrast. 3D rendering (Not supervised by radiologist): MIP and/or 3D reconstructed images were created by the technologist. COMPARISON: CT CHEST WITHOUT CONTRAST 03/07/2016 10:15 AM FINDINGS: Pulmonary arteries: No evidence of pulmonary embolus to the segmental level. Aorta: No aneurysm of the aorta. No dissection of the aorta. Lungs: Unremarkable. No consolidation. No masses. Pleural spaces: Unremarkable. No pneumothorax. No pleural effusion. Heart: Unremarkable. No cardiomegaly. No pericardial effusion. Lymph nodes: Unremarkable. No enlarged lymph nodes. Bones/joints: Median sternotomy Multiple unhealed right rib fractures. They are corticated consistent with nonunions . Soft tissues: Unremarkable. IMPRESSION: 1. No evidence of pulmonary embolus to the segmental level. 2. No aneurysm of the aorta. 3. No dissection of the aorta. Dictated and Authenticated by: Toña Starr MD. Ordering:MONAE Gee MD
[2020-07-16 17:22] LABS: COVID-19 PCR Negative (Negative)
--- NOTE | 2020-07-16 17:43 | HPE_ITS ---
Date of service: 07/16/20 Time of Service: 17:43 Assessment and Plan Assessment and plan (1) Chest pain, exertional: Status: Acute Assessment and plan: Apparently exertional CP (patient is not entirely forthcoming on details). Fair risk ACS (viz, unstable angina). Has received ASA, will add dose Plavix. Already anticoagulated on DOAC. Will plan on stress test in AM. History of Present Illness History of Present Illness Chief Complaint: CP Narrative: 69 male with h/o CAD, s/p CABG 2016, s/p cath 2019 with no significant stenoses. Reports long h/o episodic CP with exertion, particularly when uses treadmill, though states he sometimes can just work through it, sometimes takes NTG. At any rate reports episod of transient CP last night, and then this morning CP on treadmill which did not go away until he stopped. Has had fleeting recurrences through the day with minimal exertion (transferring from stretcher). In ER EKG shows no acute changes, baselin AF, and trop neg x2. Admitted to complete r/o and for stress test. States he feels fine at present. Review of Systems All systems reviewed & are unremarkable except as noted in HPI and below [employer] Medical History Acquired hypothyroidism (10/28/16) Arthritis of both knees Atypical chest pain (06/22/14) a. ? cardiac in origina vs. related to untreated sleep apnea Bursitis of shoulder, right, adhesive (04/06/15) Cervical disc disorder with myelopathy right arm Chronic and recurrent low back pain L4-[address] scan in 1993, recurrent since then intermittently. Current use of insulin Depressive disorder marital issues Diabetes mellitus type 2 in obese Diabetes mellitus with neuropathy Reduced monofilament 06/24/2019 Erectile dysfunction of organic origin (08/07/15) atrophic testicles, testosterone RX Essential hypertension Essential hypertension (01/31/13) H/O renal calculi History of nicotine dependence Hyperlipidemia (08/17/12) Hypomagnesemia (06/22/14) Only 1.0 in the ER today. Hypothyroidism Kidney stone calcium oxylate Low back pain L4-[address] Maisonneuve fracture of left fibula (05/07/16) Nicotine dependence Cessated Obesity MERRITT (obstructive sleep apnea) Bi-PAP 07/23/19 Overactive bladder Oxybutynin, discontinued 06/24/19 in favor of optimizing DMT2 management Pipe smoker Sensorineural hearing loss, bilateral (02/15/15) No hearing aids Tendinitis of right shoulder Umbilical hernia Recurrent x 2, repaired x 3. Uncontrolled diabetes mellitus Surgical History Appendectomy Colonoscopy - IV Sedation Extraction of cataract 11/23/14; DR. GOINS; RIGHT EYE 12/07/14; DR. GOINS; LEFT EYE Fracture, Open Treatment ORIF-LEFT SYNDESMOSIS WITH TWO SCREWS History of cataract removal with insertion of prosthetic lens (11/23/14) History of umbilical hernia repair Repair of umbilical hernia S/P cardiac catheterization (05/31/19) Status post appendectomy Status post coronary artery bypass with autogenous graft, 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) 2017 Status post coronary artery stent placement (09/26/16) One vessel for unstable angina Family History Father Diabetes Dementia Neoplasm PANCREATIC Social History Smoking/Tobacco Use Status: Former Tobacco Use Quit Date: 01/02/17 Pack-years: 40 Tobacco: How many years used: 40 Smoking risk assessment performed?: Yes Alcohol Intake: current Alcohol Intake frequency: a few times a week Alcohol type: beer and hard liquor Counseling given: Yes Counseling provided: reduce to 2 or less/day Details: 3-5 nights/wk drinks shot of hard liquor and multiple beers (3) Drug use: Never Substance use type: does not use Adopted: No Caregiver/Support person: No Foster care: No Household members: none and other Details: Cats Number of Children: 3 number of grandchildren: 4 Communication Needs: None Do you need help understanding health information?: Rarely Pets and animals: Yes Pets and animals: cat(s) Do you think of yourself as: straight/heterosexual Current gender identity: male What is your relationship status?: Panel score (0-1 are the most socially isolated patients): 0 What type of physical activity do you participate in: none Seatbelt use: always Drive intox 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 Meds Home Medications and Allergies Allergies Allergy/AdvReac Type Severity Reaction Status Date / Time No Known Allergies Allergy Verified 06/26/20 14:17 Home Medications Medication Instructions Recorded Confirmed Type pen needle, diabetic 32 gauge x #200 each 11/16/18 07/16/20 Rx aspirin 81 mg tablet,delayed 81 mg PO DAILY 06/02/19 07/16/20 History release melatonin 5 mg capsule 5 mg PO HS PRN cap 06/10/19 07/16/20 History furosemide 40 mg tablet 40 mg PO DAILY #90 tab 08/24/19 07/16/20 Rx rosuvastatin 40 mg tablet 40 mg PO DAILY #90 tab 09/08/19 07/16/20 Rx empagliflozin 25 mg tablet 25 mg PO QAM #90 tab 09/23/19 07/16/20 Rx nitroglycerin 0.4 mg sublingual 0.4 mg SL Q5M PRN #90 tab 10/10/19 07/16/20 Rx tablet insulin aspart U-100 100 unit/mL 10 - 30 unit SUB-Q AC #90 ml 10/28/19 07/16/20 Rx (3 mL) subcutaneous pen mirabegron 50 mg tablet,extended 50 mg PO DAILY #90 tab 10/28/19 07/16/20 Rx release 24 hr fenofibrate nanocrystallized 145 145 mg PO DAILY #90 tab-cap 11/07/19 07/16/20 Rx mg tablet amlodipine 10 mg tablet 10 mg PO DAILY #90 tab 05/28/20 07/16/20 Rx levothyroxine 50 mcg tablet 50 mcg PO DAILY #90 tab-cap 05/28/20 07/16/20 Rx metoprolol tartrate 25 mg tablet 25 mg PO BID #180 tab-cap 05/28/20 07/16/20 Rx blood sugar diagnostic #400 ea 06/13/20 07/16/20 Rx apixaban 5 mg tablet 5 mg PO BID #180 tab 06/20/20 07/16/20 Rx insulin glargine 100 unit/mL (3 74 unit SUB-Q QPM #63 ml 06/20/20 07/16/20 Rx mL) subcutaneous pen Exam Narrative Exam Narrative: 138/73, 51, 36.5, 12-26, 94% RA. HEENT atraumatic; neck supple, cannot rread JVP; lungs diminished but clear; heart distant, irr/irr; abdomen soft and NT; extremities 1+ pedal edema; neuro Ox3, moves all4s Results Labs Result diagrams: 07/16/20 13:00 07/16/20 13:00 Labs: Laboratory Results - last 24 hr 07/16/20 07/16/20 07/16/20 13:00 13:00 13:00 WBC 11.56 H RBC 3.78 L Hgb 12.3 L Hct 38.1 L MCV 100.8 H MCH 32.5 MCHC 32.3 RDW 12.8 Plt Count MPV 11.9 H Immature Gran % 0.4 Neutrophils % 79.7 Lymphocytes % 10.8 Monocytes % 8.0 Eosinophils % 0.8 Basophils % 0.3 Nucleated RBC % 0 Absolute Neutrophils 9.21 H Absolute Lymphocytes 1.25 Absolute Monocytes 0.92 H Absolute Eosinophils 0.09 Absolute Basophils 0.03 RBC Morphology See below Macrocytosis 2+ D-Dimer 541 H Sodium 139 Potassium 4.9 Chloride 104 Carbon Dioxide 24.5 Anion Gap 10.5 BUN 31 H Creatinine 1.7 H Estimated GFR/1.73 m2 40.40 Glucose 152 H Calcium 8.9 Magnesium 2.0 Total Bilirubin 0.8 AST 46 H ALT 35 Alkaline Phosphatase 75 Troponin I < 0.05 NT-Pro-B Natriuret Pep 3059 H Total Protein 7.5 Albumin 3.7 COVID-19 Source SARS-CoV-2 (PCR) 07/16/20 07/16/20 16:20 16:35 WBC RBC Hgb Hct MCV MCH MCHC RDW Plt Count MPV Immature Gran % Neutrophils % Lymphocytes % Monocytes % Eosinophils % Basophils % Nucleated RBC % Absolute Neutrophils Absolute Lymphocytes Absolute Monocytes Absolute Eosinophils Absolute Basophils RBC Morphology Macrocytosis D-Dimer Sodium Potassium Chloride Carbon Dioxide Anion Gap BUN Creatinine Estimated GFR/1.73 m2 Glucose Calcium Magnesium Total Bilirubin AST ALT Alkaline Phosphatase Troponin I < 0.05 NT-Pro-B Natriuret Pep Total Protein Albumin COVID-19 Source Nasal/nares SARS-CoV-2 (PCR) Negative Last Vital Signs Temp 36.5 C 07/16/20 12:43 Pulse 51 L 07/16/20 15:01 Resp 26 H 07/16/20 14:40 BP 138/73 07/16/20 14:46 Pulse Ox 94 07/16/20 14:50 COVID-19 Screening Have you, or household traveled for leisure in last 14 days?: No Had IN PERSON contact w/suspected or confirmed C-19 person: No
[2020-07-16] MEDS: Aspirin 81 MG CHEW 324 MG CH (18:00)
[2020-07-16] MEDS: Insulin Glargine 300 UNITS/3 ML PEN 74 UNITS SC (20:51)
[2020-07-16] MEDS: Apixaban 5 MG TAB PO (20:51)
[2020-07-16] MEDS: Clopidogrel 300 MG TAB PO (20:51)
[2020-07-16] MEDS: Acetaminophen 500 MG TAB PO (21:49)
[2020-07-16] MEDS: Melatonin 3 MG TAB 6 MG PO (21:50)
[2020-07-16 23:03] LABS: Troponin I < 0.05 ng/mL (<0.06)
[2020-07-17] VITALS (65 sets, daily range): BP systolic 128–221; BP diastolic 48–201; PULSE 53–97; RESP 11–28; TEMP 35.9–36.7; O2SAT 91–98
[2020-07-17] MEDS: Acetaminophen 500 MG TAB PO ×2 (05:14→12:57)
[2020-07-17] MEDS: Levothyroxine 50 MCG TAB PO (05:14)
[2020-07-17] MEDS: Insulin Aspart 300 UNITS/3 ML PEN SC ×2 (08:51→11:29)
[2020-07-17] MEDS: Apixaban 5 MG TAB PO (08:55)
[2020-07-17] MEDS: Fenofibrate, Micronized 145 MG TAB PO (08:55)
[2020-07-17] MEDS: Aspirin E.C. 81 MG TABEC PO (08:55)
[2020-07-17] MEDS: amLODIPine 10 MG TAB PO (08:55)
[2020-07-17] MEDS: Furosemide 40 MG TAB PO (08:55)
[2020-07-17] MEDS: Mirabegron 50 MG TABCR PO (08:56)
[2020-07-17] MEDS: ROSUVASTATIN 20 MG TAB 40 MG PO (08:57)
--- NOTE | 2020-07-17 09:40 | PDOC.CMIN ---
- If Service Date Differs Date of service: 07/17/20 Time of Service: 09:40 Care Management Initial Assess REASON FOR HOSPITALIZATION:: Chest Pain PAST MEDICAL HISTORY/PAST SURGICAL HISTORY:: Medical History . Acquired hypothyroidism (10/28/16). Arthritis of both knees. Atypical chest pain (06/22/14). a. ? cardiac in origina vs. related to untreated sleep apnea. Bursitis of shoulder, right, adhesive (04/06/15). Cervical disc disorder with myelopathy. right arm. Chronic and recurrent low back pain. L4-[address] scan in 1993, recurrent since then intermittently. Current use of insulin. Depressive disorder. marital issues. Diabetes mellitus type 2 in obese. Diabetes mellitus with neuropathy. Reduced monofilament 06/24/2019. Erectile dysfunction of organic origin (08/07/15). atrophic testicles, testosterone RX. Essential hypertension. Essential hypertension (01/31/13). H/O renal calculi. History of nicotine dependence. Hyperlipidemia (08/17/12). Hypomagnesemia (06/22/14). Only 1.0 in the ER today. Hypothyroidism. Kidney stone. calcium oxylate. Low back pain. L4-[address] Maisonneuve fracture of left fibula (05/07/16). Nicotine dependence. Cessated. Obesity. MERRITT (obstructive sleep apnea). Bi-PAP 07/23/19. Overactive bladder. Oxybutynin, discontinued 06/24/19 in favor of optimizing DMT2 management. Pipe smoker. Sensorineural hearing loss, bilateral (02/15/15). No hearing aids. Tendinitis of right shoulder. Umbilical hernia. Recurrent x 2, repaired x 3. Uncontrolled diabetes mellitus. Surgical History . Appendectomy. Colonoscopy - IV Sedation. Extraction of cataract. 11/23/14; DR. GOINS; RIGHT EYE. 12/07/14; DR. GOINS; LEFT EYE. Fracture, Open Treatment. ORIF-LEFT SYNDESMOSIS WITH TWO SCREWS. History of cataract removal with insertion of prosthetic lens (11/23/14). History of umbilical hernia repair. Repair of umbilical hernia. S/P cardiac catheterization (05/31/19). Status post appendectomy. Status post coronary artery bypass with autogenous graft, 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). 2017. Status post coronary artery stent placement (09/26/16). One vessel for unstable angina PREVIOUS FUNCTIONAL STATUS/SOCIAL/FAMILY SUPPORTS:: Minh, as Olaf prfefers to be called, lives alone lives alone in [place], [place] with his catPanda. He is retired but worked for 42 years in the [employer]. He is independent at baseline and receives no community services. CURRENT FUNCTIONAL STATUS:: Minh (Olaf' preferred name) was sitting up in bed when CM met with him. He was pleasant and engaged easily with CM. He stated that he is feeling better but did not complete his stress test. He explained that he was annoyed with one of the nurses who talked to him like a 5 year old, and rather than lose his temper, chose to end the test. He will be discharged this afternoon and complete the stress test on . He promised the provider that he would take it easy until then. CM was just completing the visit when the conversation occurred. ADVANCE DIRECTIVES:: none on file Has patient been provided with info about the portal/API?: Yes Did the patient sign up for the portal?: Yes (previously) CODE STATUS:: Full Code INSURANCE COVERAGE / FINANCIAL ISSUES:: Medicare. for life CURRENT HOME/COMMUNITY SERVICES/EQUIPMENT:: none PRIMARY CARE PHYSICIAN:: Gina Bravo POTENTIAL DISCHARGE NEEDS:: Follow up with Cardiology, PCP and plan of care PATIENT/FAMILY EDUCATION NEEDS:: Dischaarge plan, limitations, follow up plan, Ask Me Three TRANSPORTATION:: via private vehicle with family PLAN:: Minh will be discharged with no new services. He will follow up with Cardiology and his PCP and plan of care. Minh will transport with friends/family.
--- NOTE | 2020-07-17 13:00 | ETT_ITS ---
APPROVED REPORT Exam: Exercise Treadmill Patient Location: In-Patient Room/Bed: 219 Stress Nurse: Edel Osuna RN Ordering Provider:KAROL RYAN, Contact Number: [phone] BMI: 44.47 Baseline Rhythm: 1DHB w/ RBBB Indications: CHEST PAIN. Medical History Medical History: CAD, Obesity, DM II, Neuropathy, Erectile Dysfuntion, HTN, Tobacco use, HLD, MERRITT w/ BiPAP. Cardiac Medications: Aspirin, Amlodipine, Apixaban, Empagliflozin, Furosemide, Insulin Aspart, Insuli n Glargine, Metoprolol Tartrate, Nitro SL, Rosuvastatin Allergies: No known drug allergies Cardiac Risk Factors: HTN, Hyperlipidemia, Diabetes (insulin), Smoking (former) , CVD, Obesity Previous Cardiac Procedures: CABG (2016), PCI (2019) Pretest Chest Pain Characteristics: No chest pain Exercise History: Sedentary Physical Disabilities: None. Lung Sounds: Clear to auscultation Heart Sounds: Regular Stress Test Details Test: Exercise stress testing was performed using a modified Hermann protocol. Rest Stress HR Resting HR Supine: 61 bpm Max Heart Rate (APMHR): 153 bpm Resting HR Standin bpm Target HR (85% APMHR): 130 bpm Max HR Achieved: 115 bpm % of APMHR: 75 Recovery HR: 63 bpm HR response to stress: Normal HR response to stress Comment: Nondiagnositic; patient did not reach target HR. BP Resting BP Supine: 142/66 mmHg Resting BP Standin/60 mmHg Max BP: 164/70 mmHg Recovery BP: 142/62 mmHg BP response to stress: Normal blood pressure response to stress. ECG Resting ECst degree AV block, RBBB Ectopy: PACs. Stress ECG: Sinus Tachycardia, RBBB ST Change: No significant ST segment changes noted Arrhythmia: None Recovery ECst degree AV block, RBBB Recovery ST Change: No significant ST segment changes noted Recovery Arrhythmia: PACs Clinical Reason for Termination: Dyspnea Stress Symptoms: Dyspnea Exercise duration: 4 min49 sec Exercise capacity: 5.15 METs De [place] O Treadmill Score: 4.1 Rate Pressure Product: 59960 Stress ECG Conclusion 1. The resting electrocardiogram showed right bundle branch block, left anterior fascicular block 2. Patient exercised on the Hermann protocol and completed a workload of 5.15 METS, stopping due to dys pnea 3. Blunted heart rate and blood pressure response to exercise. The patient achieved 75% of predicted heart rate for age 4. Electrocardiographically the test was nondiagnostic due to inadequate heart rate 5. Atrial premature beats were reported De [place] O Treadmill Score is 4.1 which is Moderate risk. Stress Test Summary STAGE Time (mins) Speed (mph) Grade (%) HR BP SYMPTOMS METS Supine 61 142/66 Standing 66 138/60 1 3 1.7 10 95 SpO2 90% 4.6 2 6 2.5 12 SpO2 88% 7 1 min recovery 78 164/70 SpO2 84%. 7/10 Chest pain 3 min recovery 69 150/68 SpO2 93%. Chest pain resolved. 6 min recovery 63 142/62 Modified Hermann Protocol. NONDIAGNOSTIC TEST.
--- NOTE | 2020-07-17 13:09 | NUR.NOTE ---
Patient transported to stress lab in wheelchair and on telemetry. RN will collect patient is about 30 minutes. Prior to departing ICU, patient is given 500mg of Acetaminophen for a headache that scored 5/10.Nursing Note:
--- NOTE | 2020-07-17 14:13 | NUR.NOTE ---
Patient returns from stress test being unable to complete same. Vital signs are stable.Nursing Note:
--- NOTE | 2020-07-17 14:45 | NUR.NOTE ---
campaign manager meets with patient.Nursing Note:
--- NOTE | 2020-07-17 15:06 | DSE_ITS ---
Date of service: 07/17/20 Time of Service: 15:08 DS: Diagnosis Discharge Diagnosis (1) Chest pain, exertional: Status: Acute (2) Diabetes mellitus with neuropathy: Status: Chronic (3) Atrial fibrillation: Status: Chronic (4) CKD (chronic kidney disease), stage III: Status: Chronic (5) Coronary artery disease: Status: Chronic Discharge Plan Disposition Patient Disposition: HOME Condition: Stable Discharge Details Reason For Visit: CP Admit Date/Time: 07/16/20 17:55 Admit Provider: Skyler Zaman Attending Provider: Skyler Zaman Primary Care Provider: Gina Bravo Hospital Course Hospital Course: 69 male with h/o CAD, s/p CABG 2016, s/p cath 2019 with no significant stenoses, HLD, HTN, DM2/insulin requiring, obesity. Reports long h/o episodic CP with e xertion, particularly when uses treadmill, though states he sometimes can just work through it, sometimes takes NTG. He had an episode of transient CP the night prior to admission, and then on the morning of admission he experienced CP on treadmill which did not go away until he stopped. Has had fleeting recurrences through the day with minimal exertion (transferring from stretcher). In ER EKG shows no acute changes, baseline AF, and trop neg x2. CTA chest was negative for pulmonary embolism or other acute findings. Admitted to complete r/o and for stress test. His subsequent troponin was negative. An exercise stress test was attempted but he was unable to complete the test for an adequate assessment. A NM stress test cannot be scheduled here until , 07/19. He does not want to stay in the hospital but would like to schedule this as an outpt. He is aware of the risks of going home and having a cardiac event. He will engage in only light household activities. He has had no recurrent CP since admission. Follow up with PCP in 1-2 weeks if NM stress is negative on . . Home Meds and New Rx's Prescriptions: Continued Jardiance 25 mg tablet 25 mg PO QAM Qty: 90 RF: 3 melatonin 5 mg capsule 5 mg PO HS PRN (Reason: sleep difficulty) RF: 0 Myrbetriq 50 mg tablet extended release 24 hr 50 mg PO DAILY Qty: 90 RF: 4 (DME) pen needle, diabetic [BD Ultra-Fine Amber Pen Needle] 32 gauge x 5/32 needle 1 ea Miscellaneous QID Qty: 200 RF: 5 aspirin 81 mg tablet,delayed release (DR/EC) 81 mg PO DAILY RF: 0 furosemide 40 mg tablet 40 mg PO DAILY Qty: 90 RF: 3 rosuvastatin 40 mg tablet 40 mg PO DAILY Qty: 90 RF: 3 nitroglycerin 0.4 mg tablet, sublingual 0.4 mg SL Q5M PRN (Reason: chest pain) Qty: 90 RF: 2 insulin aspart U-100 [Novolog Flexpen U-100 Insulin] 100 unit/mL (3 mL) insulin pen 10 - 30 unit Sub-Q AC Qty: 90 RF: 11 fenofibrate nanocrystallized [Tricor] 145 mg tablet 145 mg PO DAILY Qty: 90 RF: 3 levothyroxine 50 mcg tablet 50 mcg PO DAILY Qty: 90 RF: 3 metoprolol tartrate 25 mg tablet 25 mg PO BID Qty: 180 RF: 3 amlodipine 10 mg tablet 10 mg PO DAILY Qty: 90 RF: 3 (DME) Blood Glucose Test Strip See Rx Instructions .MEDSUPPLY Qty: 400 RF: 3 Lantus Solostar U-100 Insulin 100 unit/mL (3 mL) insulin pen 74 unit Sub-Q QPM Qty: 63 RF: 4 Eliquis 5 mg tablet 5 mg PO BID Qty: 180 RF: 3 Discharge Instructions Instructions: Angina (DC) Activity:: light activity only Equipment/Supplies:: No Equipment Needed Diet:: heart healthy Discharge Orders Discharge Orders: Discharge Order (Routine); Ordered 07/17/20 Ordered By: Tripp Rodriguez Other Ambulatory Orders: Nuclear Medicine Stress Test (Outpt) (ONCE) Facility: [facility] - Location: Access Ordered By: Tripp Rodriguez DS: Summary Time Spent with Patient providing and/or coordinating discharge services: Greater than 30 minutes Status at Discharge Functional status at discharge: independent ambulation Overall status at discharge: patient is back to baseline Mental Status: mental status grossly normal Speech and Movement: speech and movement normal Mood: congruent mood Affect: normal affect Exam Psych Mental Status: mental status grossly normal Speech and Movement: speech and movement normal Mood: congruent mood Affect: normal affect DS: Data Vitals/I&O Vitals and I&O: Vital Signs Temperature 36.7 C 07/17/20 14:13 Temperature Source Temporal Artery Scan 03/16/21 14:13 Pulse 58 L 07/17/20 14:13 Pulse 62 07/17/20 06:01 Respiratory Rate 19 07/17/20 14:13 Respiratory Effort Non-Labored 07/17/20 14:13 Respiratory Depth Normal 07/17/20 14:13 Respiratory Pattern Normal 07/17/20 14:13 Blood Pressure 157/48 H 07/17/20 14:13 Blood Pressure Mean 84 07/17/20 14:13 Blood Pressure Position Supine 07/17/20 14:13 Pulse Oximetry 95 07/17/20 14:13 Oxygen Delivery Method Room Air 07/17/20 14:13 Oxygen Flow Rate 0 07/17/20 14:13 Fraction of Inspired Oxygen (FIO2) 21 07/17/20 09:45 Pain Level 0 07/17/20 14:13 Intake & Output 07/16/20 07/17/20 07/17/20 23:59 11:59 23:59 Intake Total 460 / 460 240 / 240 Output Total 900 / 900 1750 / 2950 1200 / 2950 Balance -440 / -440 -1510 / -2710 -1200 / -2710 Weight 141.9 kg 140 kg Intake: IV 10 / 10 Oral 450 / 450 240 / 240 Output: Urine 900 / 900 1750 / 2950 1200 / 2950 Other: Urine Color Pale Yellow Yellow Yellow Urine Appearance Clear Clear Clear Urine Odor None None None Comment states that he pees a lot. Stool Size Small Stool Characteristics Hard Voiding Methods Urinal Urinal Data Completed and Pending Labs on day of discharge: Labs from last 24 hours 07/16/20 07/16/20 07/16/20 22:40 16:35 16:20 Troponin I < 0.05 < 0.05 COVID-19 Source Nasal/nares SARS-CoV-2 (PCR) Negative Nasopharyn COVID-19 PCR Ref Test Perform Site 07/16/20 07/16/20 16:14 15:00 Troponin I COVID-19 Source Cancelled SARS-CoV-2 (PCR) Cancelled Cancelled Nasopharyn COVID-19 PCR Cancelled Ref Test Perform Site Cancelled [facility] Medical History Acquired hypothyroidism (10/28/16) Arthritis of both knees Atypical chest pain (06/22/14) a. ? cardiac in origina vs. related to untreated sleep apnea Bursitis of shoulder, right, adhesive (04/06/15) Cervical disc disorder with myelopathy right arm Chronic and recurrent low back pain L4-[address] scan in 1993, recurrent since then intermittently. Current use of insulin Depressive disorder marital issues Diabetes mellitus type 2 in obese Diabetes mellitus with neuropathy Reduced monofilament 06/24/2019 Erectile dysfunction of organic origin (08/07/15) atrophic testicles, testosterone RX Essential hypertension Essential hypertension (01/31/13) H/O renal calculi History of nicotine dependence Hyperlipidemia (08/17/12) Hypomagnesemia (06/22/14) Only 1.0 in the ER today. Hypothyroidism Kidney stone calcium oxylate Low back pain L4-[address] Maisonneuve fracture of left fibula (05/07/16) Nicotine dependence Cessated Obesity MERRITT (obstructive sleep apnea) Bi-PAP 07/23/19 Overactive bladder Oxybutynin, discontinued 06/24/19 in favor of optimizing DMT2 management Pipe smoker Sensorineural hearing loss, bilateral (02/15/15) No hearing aids Tendinitis of right shoulder Umbilical hernia Recurrent x 2, repaired x 3. Uncontrolled diabetes mellitus Surgical History Appendectomy Colonoscopy - IV Sedation Extraction of cataract 11/23/14; DR. GOINS; RIGHT EYE 12/07/14; DR. GOINS; LEFT EYE Fracture, Open Treatment ORIF-LEFT SYNDESMOSIS WITH TWO SCREWS History of cataract removal with insertion of prosthetic lens (11/23/14) History of umbilical hernia repair Repair of umbilical hernia S/P cardiac catheterization (05/31/19) Status post appendectomy Status post coronary artery bypass with autogenous graft, 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) 2017 Status post coronary artery stent placement (09/26/16) One vessel for unstable angina Family History Father Diabetes Dementia Neoplasm PANCREATIC Social History Smoking/Tobacco Use Status: Former Tobacco Use Quit Date: 01/02/17 Pack-years: 40 Tobacco: How many years used: 40 Smoking risk assessment performed?: Yes Alcohol Intake: current Alcohol Intake frequency: a few times a week Alcohol type: beer and hard liquor Counseling given: Yes Counseling provided: reduce to 2 or less/day Details: 3-5 nights/wk drinks shot of hard liquor and multiple beers (3) Drug use: Never Substance use type: does not use Adopted: No Caregiver/Support person: No Foster care: No Household members: none and other Details: Cats Number of Children: 3 number of grandchildren: 4 Communication Needs: None Do you need help understanding health information?: Rarely Pets and animals: Yes Pets and animals: cat(s) Do you think of yourself as: straight/heterosexual Current gender identity: male What is your relationship status?: Panel score (0-1 are the most socially isolated patients): 0 What type of physical activity do you participate in: none Seatbelt use: always 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
== END 2020-07-17 16:20 | disposition home or self-care (01) ==
LOC: ER 17:25 → ICU 19:29
PROVIDERS: Physician Assistant; Student in an Organized Health Care Education/Training Program; Admitting Provider General Practice; Emergency Provider Student in an Organized Health Care Education/Training Program; PCP Nurse Practitioner Adult Health; Visit Provider General Practice
DX: R07.89 Other chest pain (principal); I25.10 Atherosclerotic heart disease of native coronary artery without angina pectoris; E11.40 Type 2 diabetes mellitus with diabetic neuropathy, unspecified; E11.22 Type 2 diabetes mellitus with diabetic chronic kidney disease; I12.9 Hypertensive chronic kidney disease with stage 1 through stage 4 chronic kidney disease, or unspecified chronic kidney disease; N18.30 Chronic kidney disease, stage 3 unspecified; Z95.1 Presence of aortocoronary bypass graft; E03.9 Hypothyroidism, unspecified; Z79.4 Long term (current) use of insulin; E66.9 Obesity, unspecified; F32.9 Major depressive disorder, single episode, unspecified; E78.5 Hyperlipidemia, unspecified; G47.33 Obstructive sleep apnea (adult) (pediatric); H90.3 Sensorineural hearing loss, bilateral; Z87.891 Personal history of nicotine dependence; I48.20 Chronic atrial fibrillation, unspecified; Z68.41 Body mass index [BMI] 40.0-44.9, adult
CPT/HCPCS: 36415; 71275; 80053; 87635; 93005; 93016; 93018; 99217; 99222; 99285; U0003; 83735; 83880; 84484; 85025; 85379; 93010; 93017; 99219; G0378; J3490

== ENCOUNTER 2020-07-23 02:01 | Outpatient (CLI) | payer MEDICARE, OTHER, SELFPAY ==
--- NOTE | 2020-07-23 | DI.NM_ITS ---
APPROVED REPORT Exam: Pharmacologic Patient Location: Out-Patient Room/Bed: Stress Nurse: Beatrice Lamb RN Ordering Provider:TOREY PEGUERO, Contact Number: [phone] BMI: 42.32 Baseline Rhythm: Sinus Bradycardia Comment: RBBB, sinus arrhythmia Indications: Chest pain on exertion, CAD Medical History Medical History: CAD, obesity, DM II, neuropathy, erectile dysfunction, HTN, tobacco use, hyperlipide brian, MERRITT w/ BiPAP Cardiac Medications: Aspirin, amlodipine, apixaban, empagliflozin, furosemide, insulin aspart, insuli n glargine, metoprolol tartate, nitro SL, rosuvastatin Allergies: NKA Cardiac Risk Factors: HTN, hyperlipidemia, diabetes, smoker (former), CVD, obesity Previous Cardiac Procedures: CABG 2016, PCI (2019) Pretest Chest Pain Characteristics: None Exercise History: Sedentary Physical Disabilities: None Lung Sounds: Clear to auscultation Heart Sounds: Regular Stress Test Details Test: Pharmacologic stress was paired with low level exercise. Reason for pharmacologic stress test: physical limitation. Nuclear Acquisition: Rest Tc-99m/Stress Tc-99m 1 day Rest Isotope: Tc-99m Sestamibi. Dose: 12.1 Date: 07/23/2020 Injection Time: 1100 Stress Isotope: Tc-99m Sestamibi. Dose: 39.1 Date: 07/23/2020 Injection Time: 1302 HR Resting HR Supine: 48 bpm Max Heart Rate (APMHR): 153.712532 bpm Resting HR Standin bpm Target HR (85% APMHR): 130.179453 bpm Max HR Achieved: 83 bpm % of APMHR: 54.25 Recovery HR: 51 bpm BP Resting BP Supine: 144/72 mmHg Resting BP Standin/74 mmHg Max BP: 146/70 mmHg Recovery BP: 140/68 mmHg ECG Resting ECG: Sinus bradycardia, RBBB, sinus arrhythmia Ectopy: None Stress ECG: Sinus Rhythm, RBBB, sinus arrhythmia ST Change: No significant ST segment changes noted Arrhythmia: None Recovery ECG: Sinus bradycardia, RBBB, sinus arrhythmia Recovery ST Change: No significant ST segment changes noted Recovery Arrhythmia: None Clinical Stress Symptoms: Dyspnea Exercise duration: 4 min05 sec Exercise capacity: 2.15 METs Rate Pressure Product: [id number] Stress ECG Conclusion 1. This is a pharmacological stress test. 2. The ECG portion of the exam is indeterminate for ischemia. Stress Test Summary STAGE HR BP Symptoms NOTES Supine 48 144/72 1 min post Lexiscan injection 63 144/74 3 min post Lexiscan injection 73 146/70 SOB 4 min post Lexiscan injection 66 7 min post Lexiscan injection 51 140/68 symptoms improved Walking Lexiscan test performed with exercise at speed 1.5 mph and 0% grade. MPI Conclusion The ejection fraction was 41% with stress. There is hypokinesis of the apex. There is a moderate sized fixed perfusion defect encompassing the entire apex. Radiologist Interpretation Radiologist Interpretation by: Wan Medeiros MD Interpretation Date/Time: 07/24/2020 16:16:11
[2020-07-23] MEDS: Regadenoson 0.4 MG/5 ML SYR IVP (13:10)
== END 2020-07-23 02:21 ==
PROVIDERS: PCP Nurse Practitioner Adult Health; Visit Provider Family Medicine
DX: R07.9 Chest pain, unspecified (principal); I25.10 Atherosclerotic heart disease of native coronary artery without angina pectoris; I10 Essential (primary) hypertension; E78.5 Hyperlipidemia, unspecified; E11.43 Type 2 diabetes mellitus with diabetic autonomic (poly)neuropathy; Z87.891 Personal history of nicotine dependence; E66.9 Obesity, unspecified
CPT/HCPCS: 78452; 93016; 93018; 93017; J2785

== ENCOUNTER 2020-07-27 09:19 | Outpatient (CLI) | payer MEDICARE, OTHER, SELFPAY ==
[2020-07-27 10:10] LABS: Source Nasal/Nares
[2020-07-27 12:34] LABS: COVID-19 PCR Negative (Negative)
== END 2020-07-27 09:20 | disposition home or self-care (01) ==
LOC: LBO 09:23
PROVIDERS: PCP Nurse Practitioner Adult Health; Visit Provider Family Medicine
DX: Z01.818 Encounter for other preprocedural examination (principal)
CPT/HCPCS: 87635

== ENCOUNTER 2021-02-12 12:16 | Emergency (ER) | payer MEDICARE, OTHER, SELFPAY ==
[2021-02-12 12:21] VITALS: BP 132/73; PULSE 54; RESP 16; TEMP 36.5; O2SAT 98
--- NOTE | 2021-02-12 12:38 | W.ED.GENAD ---
Discharge Plan Disposition Patient Disposition: HOME Condition: Stable Discharge Details Clinical Impression: Left ankle sprain Primary Care Provider: Gina Bravo ED Provider: Arabella Doe Home Meds and New Rx's Prescriptions: Continued losartan 25 mg tablet 25 mg PO HS Qty: 90 RF: 3 rosuvastatin 40 mg tablet 40 mg PO DAILY Qty: 90 RF: 3 Jardiance 25 mg tablet 25 mg PO QAM Qty: 90 RF: 3 furosemide 40 mg tablet 40 mg PO DAILY Qty: 90 RF: 3 melatonin 5 mg capsule 5 mg PO HS PRN (Reason: sleep difficulty) RF: 0 (DME) pen needle, diabetic [BD Ultra-Fine Amber Pen Needle] 32 gauge x 5/32 needle 1 ea Miscellaneous QID Qty: 200 RF: 5 aspirin 81 mg tablet,delayed release (DR/EC) 81 mg PO DAILY RF: 0 insulin aspart U-100 [Novolog Flexpen U-100 Insulin] 100 unit/mL (3 mL) insulin pen 10 - 30 unit Sub-Q AC Qty: 90 RF: 11 levothyroxine 50 mcg tablet 50 mcg PO DAILY Qty: 90 RF: 3 metoprolol tartrate 25 mg tablet 25 mg PO BID Qty: 180 RF: 3 amlodipine 10 mg tablet 10 mg PO DAILY Qty: 90 RF: 3 Lantus Solostar U-100 Insulin 100 unit/mL (3 mL) insulin pen 74 unit Sub-Q QPM Qty: 63 RF: 4 Eliquis 5 mg tablet 5 mg PO BID Qty: 180 RF: 3 fenofibrate nanocrystallized [Tricor] 145 mg tablet 145 mg PO DAILY Qty: 90 RF: 3 nitroglycerin 0.4 mg tablet, sublingual 0.4 mg SL Q5M PRN (Reason: chest pain) Qty: 90 RF: 2 (DME) Blood Glucose Test Strip See Rx Instructions .MEDSUPPLY Qty: 400 RF: 3 (DME) lancets [FreeStyle Lancets] 28 gauge misc See Rx Instructions .ROUTE .MEDSUPPLY Qty: 400 RF: 3 Discharge Instructions Instructions: Ankle Sprain (ED) Additional Instructions: Rest ice compression elevation. Wear splint as needed for comfort. Follow up with primary care provider in 3-5 days. Return to ED sooner if any worsening or concerns. Increase oral fluids. Please take Tylenol with food every 4-6 hours as needed for pain and swelling. Do not exercise strenuously for the next 3 to 5 days. If continued pain after 1 to 2 weeks please follow-up with Ortho if needed. Referrals: Gina Bravo CHANGE MANAGEMENT SPECIALIST [Primary Care Provider] - Return if symptoms worsen Rohan Ceja MD [ [facility]] - 2 weeks Discharge Data Discharge Date/Time-TO BE ENTERED AT DEPARTURE: 02/12/21 13:59 Medical Decision Making 70-year-old male presents to the ER with chief complaint of left ankle pain status post a inversion or twisting type injury approximately 3 to 4 days ago. Patient reports that he with working on his wood pile stepped up on a pallet twisting his left ankle. He reports increased pain when attempting to walk on a treadmill. He has a past medical history of diabetes, atrial fibrillation, chronic kidney disease stage III, hyperlipidemia and obesity. No obvious deformity noted on initial exam. No other injury or complaints at this time. XR ankle ordered. XR ANKLE LT COMPLETE EXAM: XR ANKLE LT COMPLETE CLINICAL HISTORY: Injury, R/O fracture. TECHNIQUE: 2D digital imaging was performed. COMPARISON: CR LEFT ANKLE 2 VIEW from 09/11/2016 FINDINGS: Parallel screw channels in the tibia and fibula metaphysis again noted. No evidence of acute fracture no widening of the mortise. Talar dome appears unremarkable. Minimal degenerative changes. Inferior calcaneal spur measuring 5 millimeters is unchanged. Some vascular calcification is evident in the posterior tibial artery. No significant osseous lesions. No radiographic evidence of osteomyelitis. Patient placed in a stirrup splint. Discussed results of x-ray patient verbalized understanding. Discussed follow-up care and strict return instructions. This text was generated using [employer] system, please disregard any oddities of phrase or misspellings. HPI General Mode of arrival: ambulatory. Date/Time Provider Initiated Documentation: 02/12/21 12:30. Limitations to Documentation: no limitations. Information obtained by: patient and RN notes reviewed. HPI Narrative: 70-year-old male presents to the ER with chief complaint of left ankle pain status post a inversion or twisting type injury approximately 3 to 4 days ago. Patient reports that he with working on his wood pile stepped up on a pallet twisting his left ankle. He reports increased pain when attempting to walk on a treadmill. He has a past medical history of diabetes, atrial fibrillation, chronic kidney disease stage III, hyperlipidemia and obesity. No obvious deformity noted on initial exam. No other injury or complaints at this time. Related Data Home Medications Medication Instructions Recorded Confirmed pen needle, diabetic 32 gauge x #200 each 11/16/18 07/16/20 aspirin 81 mg tablet,delayed 81 mg PO DAILY 06/02/19 02/12/21 release melatonin 5 mg capsule 5 mg PO HS PRN cap 06/10/19 02/12/21 insulin aspart U-100 100 unit/mL 10 - 30 unit SUB-Q AC #90 ml 10/28/19 02/12/21 (3 mL) subcutaneous pen amlodipine 10 mg tablet 10 mg PO DAILY #90 tab 05/28/20 02/12/21 levothyroxine 50 mcg tablet 50 mcg PO DAILY #90 tab-cap 05/28/20 02/12/21 metoprolol tartrate 25 mg tablet 25 mg PO BID #180 tab-cap 05/28/20 02/12/21 apixaban 5 mg tablet 5 mg PO BID #180 tab 06/20/20 02/12/21 insulin glargine 100 unit/mL (3 74 unit SUB-Q QPM #63 ml 06/20/20 02/12/21 mL) subcutaneous pen empagliflozin 25 mg tablet 25 mg PO QAM #90 tab 08/03/20 02/12/21 furosemide 40 mg tablet 40 mg PO DAILY #90 tab 08/03/20 02/12/21 rosuvastatin 40 mg tablet 40 mg PO DAILY #90 tab 08/03/20 02/12/21 losartan 25 mg tablet 25 mg PO HS #90 tab 10/10/20 02/12/21 fenofibrate nanocrystallized 145 145 mg PO DAILY #90 tab-cap 10/18/20 02/12/21 mg tablet nitroglycerin 0.4 mg sublingual 0.4 mg SL Q5M PRN #90 tab 11/07/20 02/12/21 tablet blood sugar diagnostic #400 ea 02/11/21 lancets 28 gauge #400 ea 02/11/21 Previous Rx's Medication Instructions Recorded pen needle, diabetic 32 gauge x #200 each 11/16/18 insulin aspart U-100 100 unit/mL 10 - 30 unit SUB-Q AC #90 ml 10/28/19 (3 mL) subcutaneous pen amlodipine 10 mg tablet 10 mg PO DAILY #90 tab 05/28/20 levothyroxine 50 mcg tablet 50 mcg PO DAILY #90 tab-cap 05/28/20 metoprolol tartrate 25 mg tablet 25 mg PO BID #180 tab-cap 05/28/20 apixaban 5 mg tablet 5 mg PO BID #180 tab 06/20/20 insulin glargine 100 unit/mL (3 74 unit SUB-Q QPM #63 ml 06/20/20 mL) subcutaneous pen empagliflozin 25 mg tablet 25 mg PO QAM #90 tab 08/03/20 furosemide 40 mg tablet 40 mg PO DAILY #90 tab 08/03/20 rosuvastatin 40 mg tablet 40 mg PO DAILY #90 tab 08/03/20 losartan 25 mg tablet 25 mg PO HS #90 tab 10/10/20 fenofibrate nanocrystallized 145 145 mg PO DAILY #90 tab-cap 10/18/20 mg tablet nitroglycerin 0.4 mg sublingual 0.4 mg SL Q5M PRN #90 tab 11/07/20 tablet blood sugar diagnostic #400 ea 02/11/21 lancets 28 gauge #400 ea 02/11/21 Allergies Allergy/AdvReac Type Severity Reaction Status Date / Time No Known Allergies Allergy Verified 02/12/21 12:25 General Stated Complaint: Orthopedic CHRISTIANE: 4 Review of Systems All systems reviewed & are unremarkable except as noted in HPI and below PFSH Medical History Abnormal nuclear stress test Acquired hypothyroidism (10/28/16) Arthritis of both knees Bursitis of shoulder, right, adhesive (04/06/15) Cervical disc disorder with myelopathy right arm Chronic and recurrent low back pain L4-[address] scan in 1993, recurrent since then intermittently. Current use of insulin Depressive disorder marital issues Diabetes mellitus type 2 in obese Diabetes mellitus with neuropathy Reduced monofilament 06/24/2019 Goal A1C 7.5% or less Erectile dysfunction of organic origin (08/07/15) atrophic testicles, testosterone RX Essential hypertension Essential hypertension (01/31/13) H/O renal calculi History of nicotine dependence Hyperlipidemia (08/17/12) Hypomagnesemia (06/22/14) Only 1.0 in the ER today. Hypothyroidism Kidney stone calcium oxylate Low back pain L4-[address] Maisonneuve fracture of left fibula (05/07/16) Nicotine dependence Cessated Obesity MERRITT (obstructive sleep apnea) Bi-PAP 07/23/19 Overactive bladder Oxybutynin, discontinued 06/24/19 in favor of optimizing DMT2 management Pipe smoker Sensorineural hearing loss, bilateral (02/15/15) No hearing aids Tendinitis of right shoulder Umbilical hernia Recurrent x 2, repaired x 3. Uncontrolled diabetes mellitus Goal </=7.5% Surgical History Appendectomy Colonoscopy - IV Sedation Extraction of cataract 11/23/14; DR. GOINS; RIGHT EYE 12/07/14; DR. GOINS; LEFT EYE Fracture, Open Treatment ORIF-LEFT SYNDESMOSIS WITH TWO SCREWS History of cataract removal with insertion of prosthetic lens (11/23/14) History of umbilical hernia repair Repair of umbilical hernia S/P cardiac catheterization (05/31/19) Status post appendectomy Status post coronary artery bypass with autogenous graft, 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) 2017 Status post coronary artery stent placement (09/26/16) One vessel for unstable angina Family History Father Diabetes Dementia Neoplasm PANCREATIC Social History Smoking/Tobacco Use Status: Former Tobacco Use Quit Date: 01/02/17 Pack-years: 40 Tobacco: How many years used: 40 Smoking risk assessment performed?: Yes Alcohol Intake: current Alcohol Intake frequency: a few times a week Alcohol type: beer and hard liquor Counseling given: Yes Counseling provided: reduce to 2 or less/day Details: 3-5 nights/wk drinks shot of hard liquor and multiple beers (3) Drug use: Never Substance use type: does not use Adopted: No Caregiver/Support person: No Foster care: No Household members: none and other Details: Cats Number of Children: 3 number of grandchildren: 4 Communication Needs: None Do you need help understanding health information?: Rarely Pets and animals: Yes Pets and animals: cat(s) Do you think of yourself as: straight/heterosexual Current gender identity: male What is your relationship status?: Panel score (0-1 are the most socially isolated patients): 0 What type of physical activity do you participate in: none Seatbelt use: always Drive intox 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 test car driver: No Working smoke detector in home: No Fire extinguisher in home: No Carbon monox detector in home: No Do you feel safe at home: Yes Do you feel safe in your relationship?: Yes Additional Social history: Retired from 44y in [employer]. Exam Const General: cooperative, healthy appearing and comfortable Nutritional Appearance: well nourished Orientation: alert, awake and oriented x3 Extrem Right lower extremity: normal to inspection, normal capillary refill, no joint enlargement and ankle Details: tenderness Location: of the lateral malleolus; not of the medial malleolus and not of the achilles tendon; no unusual warmth and no abrasions; no cyanosis and no edema Course Vital Signs Vital signs: Vital Signs Temperature 36.5 C 02/12/21 12:21 Pulse 54 L 02/12/21 12:21 Respiratory Rate 16 02/12/21 12:21 Blood Pressure 132/73 02/12/21 12:21 Pulse Oximetry 98 02/12/21 12:21 Temperature 36.5 C 02/12/21 12:21 Temperature Source Temporal Artery Scan 02/12/21 12:21 Pulse 54 L 02/12/21 12:21 Respiratory Rate 16 02/12/21 12:21 Blood Pressure 132/73 02/12/21 12:21 Pulse Oximetry 98 02/12/21 12:21 Oxygen Delivery Method Room Air 02/12/21 12:21 Oxygen Flow Rate 0 02/12/21 12:21 Pain Level 2 02/12/21 12:21 Comment 02/12/21 12:21
--- OUTSIDE RECORDS SUMMARY | 2021-02-12 12:47 | XMS_ITS ---
:1950 Author Care Team Providers Name Role Phone [facility] Primary Care Provider [phone] Allergies Code Code System Name Reaction Severity Status Onset NKDA ? Medications Name Status Start Date Stop Date ? ? Ambien 10 mg tablet Completed 08/16/2014 09/15/2014 1 (one) Tablet: at bedtime, as needed aspirin 325 mg tablet Active ? Not availa ble Take 1 tablet every day by oral route. atenolol 25 mg tablet Active ? Not availa ble Take 1 tablet every day by oral route. fenofibrate micronized 145 mg tablet Active ? Not available Take 1 tablet every day by oral route. Flomax 0.4 mg capsule Active ? Not availa ble Take 1 capsule every day by oral route. furosemide 40 mg tablet Active ? Not avai lable Take 1 tablet every day by oral route. ibuprofen 200 mg capsule Active ? Not balta ilable Take 1 capsule every 6 hours by oral route. insulin aspart (niacinamide) Active ? Not available lancets Active ? Not available lisinopril 20 mg tablet Active ? Not avai lable Take 1 tablet every day by oral route. ranitidine 150 mg capsule Active ? Not av ailable Take 1 capsule twice a day by oral route. simvastatin 40 mg tablet Active ? Not balta ilable Take 1 tablet every day by oral route. Test Strips Active ? Not available [facility] Levothyroxine Sodium 50 mcg tablet Active ? Not available Take 1 tablet every day by oral route. Problems Name Status Onset Date Source ? Vitamin D Deficiency Active ? History Obesity Active ? History Hypersomnia Active ? History Obstructive Sleep Apnea Syndrome Active ? History Idiopathic Sleep Related Non-obstructive Active ? 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 History Sleep Disorder Active ? History Snoring Active ? History Nocturia Active ? History Pain in Right Knee Active ? History Procedure by Method Active ? History Procedures Date Name Performed by ? ? Colonoscopy Information not avai lable ? Hernia Repair Information not avai lable Notes: umbilical Results Lab Results None recorded. Past Encounters 08/16/2019 Obstructive Sleep Apnea Syndrome Jessi Jeffers, PL[employer]IT[employer] ENGINEER: [address] [place] [address], [place] [address], Ph. Social History Tobacco Smoking Status Former Smoker (1 pack per a day) No dianna: quit 2015 Vaccine List None recorded. Plan of Care Reminders Provider Appointments None ? ? recorded. Lab None ? ? recorded. Referral None ? ? recorded. Procedures None ? ? recorded. Surgeries None ? ? recorded. Imaging None ? ? recorded. Vitals 08/16/2019 01:45PM Office 30 Height Weight BMI 177.8 cm 131.54 kg 41.6 kg/m2 06/09/2019 02:15PM Office 30 Height Weight BMI Blood Pressure 177.8 cm 134.72 kg 42.6 kg/m2 140/62 mm[Hg] 05/31/2015 Height Weight Blood Pressure 185.42 cm 136.08 kg 143/84 mm[Hg] 02/13/2015 Height Weight Blood Pressure 185.42 cm 132.54 kg 118/58 mm[Hg] 11/02/2014 Height Weight Blood Pressure 185.42 cm 131.12 kg 140/72 mm[Hg] 08/16/2014 Weight Blood Pressure 135.17 kg 132/74 mm[Hg] 07/26/2014 Height Weight Blood Pressure 185.42 cm 132.45 kg 140/60 mm[Hg]
--- NOTE | 2021-02-12 12:57 | DI.RAD_ITS ---
Exam(s) XR ANKLE LT COMPLETE EXAM: XR ANKLE LT COMPLETE CLINICAL HISTORY: Injury, R/O fracture. TECHNIQUE: 2D digital imaging was performed. COMPARISON: CR LEFT ANKLE 2 VIEW from 09/11/2016 FINDINGS: Parallel screw channels in the tibia and fibula metaphysis again noted. No evidence of acute fractur e no widening of the mortise. Talar dome appears unremarkable. Minimal degenerative changes. Infer ior calcaneal spur measuring 5 millimeters is unchanged. Some vascular calcification is evident in t he posterior tibial artery. No significant osseous lesions. No radiographic evidence of osteomyelit is. IMPRESSION: DATA REPOSITORY: RADIATION DOSE DELIVERED:
== END 2021-02-12 13:59 | disposition home or self-care (01) ==
PROVIDERS: Emergency Provider Registered Nurse Emergency; PCP Nurse Practitioner Adult Health
DX: S93.492A Sprain of other ligament of left ankle, initial encounter (principal); X50.1XXA Overexertion from prolonged static or awkward postures, initial encounter
CPT/HCPCS: 29515; 99283; 73610; 99282

== ENCOUNTER → 2021-03-19 15:29 | Outpatient (BNVA) | payer MEDICARE, OTHER, SELFPAY | PROVIDERS: PCP Nurse Practitioner Adult Health; Referring Provider Nurse Practitioner Adult Health; Visit Provider Nurse Practitioner Gerontology | DX: N32.81 Overactive bladder (principal); I10 Essential (primary) hypertension | CPT/HCPCS: 99213 ==

== ENCOUNTER → 2021-07-26 10:01 | Outpatient (BNVA) | payer MEDICARE, OTHER, SELFPAY | PROVIDERS: PCP Nurse Practitioner Adult Health; Referring Provider Nurse Practitioner Adult Health; Visit Provider Internal Medicine Cardiovascular Disease | DX: I25.110 Atherosclerotic heart disease of native coronary artery with unstable angina pectoris (principal); I10 Essential (primary) hypertension; I48.91 Unspecified atrial fibrillation | CPT/HCPCS: 99214; 99213 ==

== ENCOUNTER 2021-09-25 04:24 | Outpatient (CLI) | payer MEDICARE, OTHER, SELFPAY ==
[2021-09-25 10:48] LABS: Hemoglobin A1C 8.4 % (<5.7)
[2021-09-25 11:21] LABS: COMMENT (LAB VIEW ONLY) 72.82 mg/dL; Microalb ug/mg Crea 45.6 ug/mg Cr
[2021-09-25 11:30] LABS: ALT 28 U/L (16-63); AST 23 U/L (15-37); Alkaline Phosphatase 68 U/L (46-116); Anion Gap 11.1 mmol/L (3-11); BUN 54 mg/dL (7-18); Bilirubin, Total 0.3 mg/dL (0.2-1.0); CO2 23.9 mmol/L (21.0-32.0); CREATININE 1.8 mg/dL (0.70-1.30); Calcium 8.8 mg/dL (8.5-10.1); Calculated LDL 100 mg/dL (<100); Chloride 108 mmol/L (98-107); Cholesterol 162 mg/dL (<200); Estimated GFR 37.71 (mL/min/1.73m2); Glucose 150 mg/dL (74-106); HDL Cholesterol 41 mg/dL (40-60); Potassium 4.8 mmol/L (3.5-5.1); Sodium 143 mmol/L (136-145); TSH (W/Ref FT4) 3.76 uIU/mL (0.36-3.74); Total Protein 6.8 g/dL (6.4-8.2); Triglyceride 107 mg/dL (<150)
[2021-09-25 11:49] LABS: FREE T4 1.09 ng/dL (0.76-1.46)
== END 2021-09-25 04:25 | disposition home or self-care (01) ==
LOC: LBO 04:24
PROVIDERS: PCP Nurse Practitioner Adult Health; Visit Provider Nurse Practitioner Adult Health
DX: E11.40 Type 2 diabetes mellitus with diabetic neuropathy, unspecified (principal); E11.65 Type 2 diabetes mellitus with hyperglycemia; E66.9 Obesity, unspecified; E78.5 Hyperlipidemia, unspecified; I10 Essential (primary) hypertension; N18.30 Chronic kidney disease, stage 3 unspecified; Z79.4 Long term (current) use of insulin; E03.9 Hypothyroidism, unspecified
CPT/HCPCS: 36415; 80053; 80061; 82043; 82570; 83036; 84439; 84443

== ENCOUNTER 2021-10-03 13:37 | Emergency (ER) | payer MEDICARE, OTHER, SELFPAY ==
[2021-10-03 13:38] VITALS: BP 159/51; PULSE 58; RESP 20; TEMP 36.3; O2SAT 96
--- NOTE | 2021-10-03 14:00 | DI.RAD_ITS ---
Exam(s) XR ANKLE RT COMPLETE EXAM: XR ANKLE RT COMPLETE CLINICAL HISTORY: Fall, R/O Fracture. TECHNIQUE: 2D digital imaging was performed. COMPARISON: CR XR ANKLE LT COMPLETE from 02/12/2021 FINDINGS: 3 views There is soft tissue swelling laterally but no evidence of fracture nor widening of the ankle mortise . Talar dome appears unremarkable. No degenerative changes. No osseous lesions. No radiopaque for eign body. Base of the 5th metatarsal is intact. IMPRESSION: Soft tissue swelling but no fracture evident. DATA REPOSITORY: RADIATION DOSE DELIVERED:
--- NOTE | 2021-10-03 14:45 | DI.RAD_ITS ---
Exam(s) XR KNEE RT 3V AP,LAT,JAQUELINE EXAM: XR KNEE RT 3V AP,LAT,JAQUELINE CLINICAL HISTORY: Fall,R/O Fracture/effusion. TECHNIQUE: 2D digital imaging was performed of the right knee. Three views obtained. AP, lateral an d PA tunnel views were obtained. COMPARISON: No exams were available for comparison FINDINGS: BONES: No acute fracture is present. No bony destructive lesion is seen. JOINTS: There are mild degenerative changes seen in the knee. There does appear to be a small suprap atellar joint effusion. SOFT TISSUE: Surgical clips are seen posterior to the knee. Atherosclerosis is present. IMPRESSION: No acute fracture or dislocation. DATA REPOSITORY: RADIATION DOSE DELIVERED:
--- NOTE | 2021-10-03 14:56 | W.ED.GENAD ---
Discharge Plan Disposition Patient Disposition: HOME Condition: Stable Discharge Details Clinical Impression: Right ankle sprain, Contusion of multiple sites, Elevated white blood cell count Primary Care Provider: Gina Bravo ED Provider: Yuriy Talbert Home Meds and New Rx's Prescriptions: New oxycodone-acetaminophen 2.5-325 mg tablet 1 tab PO Q4H PRN (Reason: pain) Qty: 6 0RF No Action Jardiance 25 mg tablet 25 mg PO QAM Qty: 90 3RF Rx Instructions: Dose increase 09/23/2019 methylprednisolone [Medrol (Jame)] 4 mg tablets,dose pack See Rx Instructions PO DIRECTED Qty: 21 0RF Rx Instructions: 1 pack PO as directed; Myrbetriq 50 mg tablet extended release 24 hr 50 mg PO DAILY Qty: 90 3RF aspirin 81 mg tablet,delayed release (DR/EC) 81 mg PO DAILY Label Comments: 06/02/19-replaces 325mg. daily dose. [facility] [place] [facility] discharge note. JOBY Mchugh nitroglycerin 0.4 mg tablet, sublingual 0.4 mg SL Q5M PRN (Reason: chest pain) Qty: 90 2RF Rx Instructions: Take 1 at onset of chest pain, may repeat x2 q5 min if pain continues. (DME) Blood Glucose Test Strip See Rx Instructions .MEDSUPPLY Qty: 400 3RF Rx Instructions: As directed to check blood glucose four times daily. On insulin. Dispense covered brand. (DME) lancets [FreeStyle Lancets] 28 gauge misc See Rx Instructions .ROUTE .MEDSUPPLY Qty: 400 3RF Rx Instructions: to test BS 4X daily for DM/E11.9 and to keep A1c at or under 7.0% insulin aspart U-100 [Novolog Flexpen U-100 Insulin] 100 unit/mL (3 mL) insulin pen See Rx Instructions Sub-Q AC Qty: 90 11RF Rx Instructions: 10-30 units per mealtime correction schedule subcut before meals; (DME) pen needle, diabetic [BD Ultra-Fine Amber Pen Needle] 32 gauge x 5/32 needle 1 ea Miscellaneous QID Qty: 400 3RF Rx Instructions: E11.65 to administer insulin 4x/day levothyroxine 50 mcg tablet 50 mcg PO DAILY Qty: 90 3RF Rx Instructions: Thyroid amlodipine 10 mg tablet 10 mg PO DAILY Qty: 90 3RF Rx Instructions: Blood pressure & Heart health Eliquis 5 mg tablet 5 mg PO BID Qty: 180 3RF furosemide 40 mg tablet 40 mg PO DAILY Qty: 90 3RF fenofibrate nanocrystallized [Tricor] 145 mg tablet 145 mg PO DAILY Qty: 90 3RF metoprolol tartrate 25 mg tablet 25 mg PO BID Qty: 180 3RF Rx Instructions: Heart Lantus Solostar U-100 Insulin 100 unit/mL (3 mL) insulin pen 74 unit Sub-Q QPM Qty: 60 4RF Rx Instructions: Or as directed for dx: E11.65 rosuvastatin 40 mg tablet See Rx Instructions .ROUTE .COMPLEX Qty: 90 3RF Dose Instruction: TAKE 1 TABLET DAILY Rx Instructions: TAKE 1 TABLET DAILY losartan 25 mg tablet See Rx Instructions .ROUTE .COMPLEX Qty: 90 3RF Dose Instruction: TAKE 1 TABLET AT BEDTIME FOR DIABETES, AND TO PROTECT KIDNEYS Rx Instructions: TAKE 1 TABLET AT BEDTIME FOR DIABETES, AND TO PROTECT KIDNEYS Discharge Instructions Instructions: Ankle Sprain (ED), Leukocytosis (ED), Contusion in Adults (ED) Additional Instructions: He may continue to take [id number] acetaminophen as needed for discomfort and you may apply cold compress and keep extremity elevated to help with the healing process. If you develop any new or worsening symptoms please return otherwise follow-up in 1 week for reassessment with your primary care provider for reassessment of your injuries. As discussed today you have an elevation of your white blood cells. Given that you had no other complaints beyond the pain from your trauma this may be secondary to trauma or an underlying process that is going on. If you develop any new or changing symptoms please return immediately to the emergency department for reassessment given that at this time you have no other complaints. Referrals: Gina Bravo NP [Primary Care Provider] - 5 days Discharge Data Discharge Date/Time-TO BE ENTERED AT DEPARTURE: 10/03/21 18:23 Medical Decision Making 70-year-old male with a past medical history of diabetes, atrial fibrillation, chronic kidney disease, coronary artery disease, cardiomegaly, arthritis hypertension hyperlipidemia obesity who is on Plavix and aspirin presents to the ER status post today That she reports he tripped up the steps while carrying a couple of heavy items. He is complaining of left lower extremity pain, right knee swelling with ecchymosis and right lower quadrant abdominal pain and a large ecchymotic contusion to the area noted. He is denying any neck pain back pain. He denies any loss of consciousness he is alert and oriented x4. X-ray left ankle ordered which shows no evidence of fracture, and soft tissue swelling. CBC CMP PT PTT ordered, right knee x-ray ordered and CT abdomen pelvis without contrast. This patient was evaluated during a time of global shortage of iodinated contrast media. Based on guidance from the [employer], best practices, and local institutional approaches as an alternative path for evaluating and managing the patient may have been implemented in order to provide optimal care during shortage. The current situation has been discussed with the patient. Care is to be handed off to oncoming provider Alan Talbert NP pending labs, reevaluation and disposition Prior to the end of my shift CT went down. This text was generated using [employer] dictation system, please disregard any oddities of phrase or misspellings. Medical Records Medical records reviewed: Yes I reviewed the patient's medical records. HPI General Mode of arrival: wheelchair. Date/Time Provider Initiated Documentation: 10/03/21 13:59. Limitations to Documentation: no limitations. Information obtained by: patient, RN notes reviewed and old records reviewed. HPI Narrative: 70-year-old male presents to the ER with chief complaint of left foot and ankle injury after a fall 2 days ago he also notes a large bruise to his right lower abdomen. He does take aspirin and Plavix he reports that he was stepping up on a step. Related Data Home Medications Medication Instructions Recorded Confirmed aspirin 81 mg tablet,delayed 81 mg PO DAILY 06/02/19 10/03/21 release empagliflozin 25 mg tablet 25 mg PO QAM #90 tabs 08/03/20 10/03/21 (Jardiance) nitroglycerin 0.4 mg sublingual 0.4 mg sublingual Q5M PRN chest 11/07/20 10/03/21 tablet pain #90 tabs blood sugar diagnostic (Blood #400 ea 02/11/21 10/03/21 Glucose Test strips) lancets 28 gauge (FreeStyle #400 ea 02/11/21 10/03/21 Lancets) mirabegron 50 mg tablet,extended 50 mg PO DAILY #90 tabs 03/19/21 10/03/21 release 24 hr (Myrbetriq) insulin aspart U-100 100 unit/mL See Rx Instructions subcut AC #90 03/21/21 10/03/21 (3 mL) subcutaneous pen (Novolog mL Flexpen U-100 Insulin aspart) pen needle, diabetic 32 gauge x #400 ea 03/25/21 10/03/21 (BD Ultra-Fine Amber Pen Needle) amlodipine 10 mg tablet 10 mg PO DAILY #90 tabs 05/24/21 10/03/21 apixaban 5 mg tablet (Eliquis) 5 mg PO BID #180 tabs 05/24/21 10/03/21 fenofibrate nanocrystallized 145 145 mg PO DAILY #90 tab-caps 05/24/21 10/03/21 mg tablet (Tricor) furosemide 40 mg tablet 40 mg PO DAILY #90 tabs 05/24/21 10/03/21 levothyroxine 50 mcg tablet 50 mcg PO DAILY #90 tab-caps 22 10/03/21 metoprolol tartrate 25 mg tablet 25 mg PO BID #180 tab-caps 05/24/21 10/03/21 insulin glargine 100 unit/mL (3 74 unit (0.74 mL) subcut QPM #60 mL 08/14/21 10/03/21 mL) subcutaneous pen (Lantus Solostar U-100 Insulin) methylprednisolone 4 mg tablets in See Rx Instructions PO DIRECTED 09/16/21 09/16/21 a dose pack (Medrol (Jame)) #21 dose pk losartan 25 mg tablet See Rx Instructions .Route 09/24/21 10/03/21 .COMPLEX #90 tabs rosuvastatin 40 mg tablet See Rx Instructions .Route 09/24/21 10/03/21 .COMPLEX #90 tabs oxycodone-acetaminophen 2.5 mg-325 1 tab PO Q4H PRN pain #6 tabs 10/03/21 mg tablet Previous Rx's Medication Instructions Recorded empagliflozin 25 mg tablet 25 mg PO QAM #90 tabs 08/03/20 (Jardiance) nitroglycerin 0.4 mg sublingual 0.4 mg sublingual Q5M PRN chest 11/07/20 tablet pain #90 tabs blood sugar diagnostic (Blood #400 ea 02/11/21 Glucose Test strips) lancets 28 gauge (FreeStyle #400 ea 02/11/21 Lancets) mirabegron 50 mg tablet,extended 50 mg PO DAILY #90 tabs 03/19/21 release 24 hr (Myrbetriq) insulin aspart U-100 100 unit/mL See Rx Instructions subcut AC #90 03/21/21 (3 mL) subcutaneous pen (Novolog mL Flexpen U-100 Insulin aspart) pen needle, diabetic 32 gauge x #400 ea 03/25/21 (BD Ultra-Fine Amber Pen Needle) amlodipine 10 mg tablet 10 mg PO DAILY #90 tabs 05/24/21 apixaban 5 mg tablet (Eliquis) 5 mg PO BID #180 tabs 05/24/21 fenofibrate nanocrystallized 145 145 mg PO DAILY #90 tab-caps 05/24/21 mg tablet (Tricor) furosemide 40 mg tablet 40 mg PO DAILY #90 tabs 05/24/21 levothyroxine 50 mcg tablet 50 mcg PO DAILY #90 tab-caps 05/24/21 metoprolol tartrate 25 mg tablet 25 mg PO BID #180 tab-caps 05/24/21 insulin glargine 100 unit/mL (3 74 unit (0.74 mL) subcut QPM #60 mL 08/14/21 mL) subcutaneous pen (Lantus Solostar U-100 Insulin) methylprednisolone 4 mg tablets in See Rx Instructions PO DIRECTED 09/16/21 a dose pack (Medrol (Jame)) #21 dose pk losartan 25 mg tablet See Rx Instructions .Route 09/24/21 .COMPLEX #90 tabs rosuvastatin 40 mg tablet See Rx Instructions .Route 09/24/21 .COMPLEX #90 tabs oxycodone-acetaminophen 2.5 mg-325 1 tab PO Q4H PRN pain #6 tabs 10/03/21 mg tablet Allergies Allergy/AdvReac Type Severity Reaction Status Date / Time No Known Allergies Allergy Verified 10/03/21 13:44 General Stated Complaint: Orthopedic CHRISTIANE: 3 Review of Systems All systems reviewed & are unremarkable except as noted in HPI and below Cardiovascular Cardiovascular: Denies chest pain and Denies dyspnea Respiratory Respiratory: Denies dyspnea Musculoskeletal Musculoskeletal: Reports as per HPI, Reports abnormal gait, Reports arthralgias and Reports joint swelling Integumentary/Breasts Skin/Breast: Reports as per HPI, Reports change in pigmentation and Reports unusual bruising Neurologic Neurologic: Reports abnormal gait PFSH All Active Problems (Updated 10/03/21 @ 18:18 by Yuriy Talbert NP) Right ankle sprain (Acute) Contusion of multiple sites (Acute) Elevated white blood cell count (Acute) Left ankle sprain (Acute) Diabetes mellitus with neuropathy (Chronic) Reduced monofilament 06/24/2019 Goal A1C 7.5% or less Overactive bladder (Acute) Oxybutynin, discontinued 06/24/19 in favor of optimizing DMT2 management Uncontrolled diabetes mellitus (Acute) Goal </=7.5% Atrial fibrillation (Chronic) Apixaban 06/22/2019 History of nicotine dependence (Acute) CKD (chronic kidney disease), stage III (Chronic) Coronary artery disease (Chronic) 3-vessel (LAD, LCX, RCA) Cardiomegaly (Acute) CXR; ECHO 05/2019 [facility] [place]--LVEF 53%, +LVH (mild), no significant valvular disease; stable compared with 2017 study Current use of insulin (Chronic) MERRITT (obstructive sleep apnea) (Chronic) Bi-PAP 07/23/19 Arthritis of both knees (Chronic) Acquired hypothyroidism (Acute 10/28/16) Cervical disc disorder with myelopathy (Acute) right arm 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 Depressive disorder marital issues Diabetes mellitus type 2 in obese Essential hypertension H/O renal calculi Hypomagnesemia (06/22/14) Only 1.0 in the ER today. Hypothyroidism Kidney stone calcium oxylate Low back pain L4-[address] Maisonneuve fracture of left fibula (05/07/16) Nicotine dependence Cessated Pipe smoker SARS-CoV-2 positive (~04/2021) Tendinitis of right shoulder Umbilical hernia Recurrent x 2, repaired x 3. Surgical History Appendectomy Colonoscopy - IV Sedation Extraction of cataract 11/23/14; DR. GOINS; RIGHT EYE 12/07/14; DR. GOINS; LEFT EYE Fracture, Open Treatment ORIF-LEFT SYNDESMOSIS WITH TWO SCREWS History of cataract removal with insertion of prosthetic lens (11/23/14) History of umbilical hernia repair Repair of umbilical hernia S/P cardiac catheterization (05/31/19) Status post appendectomy Status post coronary artery bypass with autogenous graft, 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) 2017 Status post coronary artery stent placement (09/26/16) One vessel for unstable angina Family History Father Diabetes Dementia Neoplasm PANCREATIC Social History Smoking/Tobacco Use Status: Former Tobacco Use Quit Date: 01/02/17 Pack-years: 40 Tobacco: How many years used: 40 Smoking risk assessment performed?: Yes Alcohol Intake: current Alcohol Intake frequency: a few times a week Alcohol type: beer and hard liquor Counseling given: Yes Counseling provided: reduce to 2 or less/day Details: 3-5 nights/wk drinks shot of hard liquor and multiple beers (3) Drug use: Never Substance use type: does not use Adopted: No Caregiver/Support person: No Foster care: No Household members: none and other Details: Cats Number of Children: 3 number of grandchildren: 4 Communication Needs: None Do you need help understanding health information?: Rarely Pets and animals: Yes Pets and animals: cat(s) Do you think of yourself as: straight/heterosexual Current gender identity: male What is your relationship status?: Panel score (0-1 are the most socially isolated patients): 0 What type of physical activity do you participate in: none Seatbelt use: always Drive intox 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 sales driver: No Working smoke detector in home: No Fire extinguisher in home: No Carbon monox detector in home: No Do you feel safe at home: Yes Do you feel safe in your relationship?: Yes Additional Social history: Retired from 44y in [place]. Exam Narrative Exam Narrative: General: Well Developed, Awake and Alert, conversant. Skin: Warm and Dry HEENT: Head: No palpable deformities, Normocephalic Eyes: Pupils PERRLA, EOM's intact. No periorbital eccymosis or step off Ears: Canal patent. Tympanic membranes are clear . No dickson's sign, no hemptympanum. Nose/Face: Atraumatic. Facial bones nontender to palpation and stable with manipulation. Mouth/Throat: No intraoral trauma. Teeth and mandible are intact. Neck: No midline tenderness, no step off, no deformity to palpation of C-spine. Trachea midline. Chest: No surface trauma. Nontender without crepitus or deformity. Lungs clear to ausculatation bilaterally. Heart: RRR, no rubs, murmurs or gallop. Abdomen: Ecchymosis noted to the right abdomen, there is some surface trauma there, nondistended. Nontender to palpation Pelvis: Nontender to palpation and stable to compression. Femoral pulses strong and equal Extremities: Sensation intact. Peripheral pulses intact and equal. Ecchymosis swelling noted to the right knee, multiple abrasions noted to lower extremities bilaterally, tenderness noted to right calf Neuro: ANO x4, GCS 15, cranial nerves II through XII intact. Motor and sensory exam nonfocal. Reflexes are symmetric. Course Vital Signs Vital signs: Vital Signs Temperature 36.3 C L 10/03/21 13:38 Pulse 58 L 10/03/21 13:38 Respiratory Rate 20 10/03/21 13:38 Blood Pressure 159/51 H 10/03/21 13:38 Pulse Oximetry 96 10/03/21 13:38 Temperature 36.3 C L 10/03/21 13:38 Temperature Source Skin 10/03/21 13:38 Pulse 58 L 10/03/21 13:38 Respiratory Rate 20 10/03/21 13:38 Respiratory Effort 10/03/21 13:46 Blood Pressure 159/51 H 10/03/21 13:38 Blood Pressure Position Sitting 10/03/21 13:38 Pulse Oximetry 96 10/03/21 13:38 Oxygen Delivery Method Room Air 10/03/21 13:38 Oxygen Flow Rate 0 10/03/21 13:38 Pain Level 8 10/03/21 13:38 Sign Out Sign Out Data: Sign Out Comment: Pending re-evaluation and Right knee xray Last updated by Arabella Doe at 10/03/21 16:37
[2021-10-03 16:07] LABS: Abs Immature Grans 0.11 10^3/uL (0.0-0.06); Absolute Monocyte Count 1.02 10^3/uL (0.1-0.8); Basophils % 0.3; Eosinophils % 0.6; HCT 38.2 % (40.0-50.0); HGB 12.8 g/dL (13.5-17.5); Immature Grans % 0.6; Lymphocytes % 5.5; MCH 32.8 pg (27.0-33.0); MCHC 33.5 % (32.0-36.0); MCV 98 fL (80-95); MPV 11.2 fL (8.0-11.0); Monocytes % 5.4; Neutrophils % 87.6; Platelet Count 309 10^3/uL (130-400); RDW 12.7 % (11.8-14.1); RDW-SD 45.2 fL; WBC 18.85 10^3/uL (4.4-10.8)
[2021-10-03 16:18] LABS: ALT 23 U/L (16-63); AST 17 U/L (15-37); Absolute Basophil Count 0.06 10^3/uL (0.0-0.2); Absolute Eosinophil Count 0.11 10^3/uL (0.0-0.7); Absolute Lymphocyte Count 1.04 10^3/uL (1.2-3.4); Absolute Neutrophil Count 16.51 10^3/uL (1.2-6.7); Albumin 4.1 g/dL (3.4-5.0); Alkaline Phosphatase 63 U/L (46-116); Anion Gap 9.9 mmol/L (3-11); BUN 49 mg/dL (7-18); Bilirubin, Total 0.6 mg/dL (0.2-1.0); CO2 28.1 mmol/L (21.0-32.0); Calcium 10.1 mg/dL (8.5-10.1); Chloride 103 mmol/L (98-107); Estimated GFR 33.39 (mL/min/1.73m2); Glucose 115 mg/dL (74-106); Potassium 3.7 mmol/L (3.5-5.1); Sodium 141 mmol/L (136-145); Total Protein 7.9 g/dL (6.4-8.2)
[2021-10-03 16:33] LABS: INR 1.1 (0.9-1.1); PTT Activated 24.9 sec (21.0-27.5); Prothrombin Time 10.7 sec (9.3-11.0)
--- NOTE | 2021-10-03 17:34 | DI.VRAD_ITS ---
PROCEDURE INFORMATION: Exam: XR Right Knee Exam date and time: 10/03/2021 5:10 PM Age: 70 years old Clinical indication: Other: Fall, R/O fracture/effussion TECHNIQUE: Imaging protocol: XR Right knee. Views: 3 views. COMPARISON: CR XR knee RT 2V AP,lat 04/14/2018 11:00 AM FINDINGS: Bones/joints: Osseous mineralization is normal. There are no inflammatory osseous erosive changes. Again noted is a small spur at the tibial tuberosity. Again noted is minimal narrowing of the medial compartment of the tibiofemoral joint with minimal degenerative spurring around both joints, mildly increased from prior study. Again noted are multiple surgical clips posteromedial to the right knee. Again noted is a superior patellar enthesophyte. Cannot exclude tiny suprapatellar effusion, as on prior study. There are no acute displaced fractures or subluxations. Soft tissues: Normal. Vasculature: Again noted is mild to moderate vascular calcification. IMPRESSION: 1. No acute displaced fractures or subluxations. 2. Mild increase in minimal degenerative changes. Dictated and Authenticated by: Enrico Spence MD. Ordering:WATSON Bell MD
--- NOTE | 2021-10-03 18:15 | ED.PROG_ITS ---
Date of service: 10/03/21 Time of Service: 16:00 Medical Decision Making Patient presenting to the emergency department for chief complaint of fall and right ankle pain. Please see Arabella Doe's initial note. Patient signed out to me pending radiological imaging. Patient was informed that CT imaging capabilities were not available due to emergency machine fault. Reviewed radiological imaging and no signs of acute fracture or dislocation. Patient was reassessed specifically the abdomen and patient denies any abdominal pain, fever, and states his main complaint was right ankle. Suspect ankle sprain and will treat with Bruno wrap and recommend elevation, acetaminophen, and ice. Patient to follow-up with primary care provider for reassessment. Please inform patient of leukocytosis that was noted on labs but given the patient has no other complaints and no obvious infectious etiology will consider this may be secondary to trauma but patient was informed to return to the emergency department for any new or worsening symptoms or change in his condition. Patient was placed upon follow-up list to follow-up with primary care provider for reassessment as well given undifferentiated leukocytosis. After discussion of diagnosis and plan of care patient has no further needs, questions, or andrea rns and states clear understanding to return to the emergency department for any worsening symptoms. After patient was discharged he did state that he was continuing to have some pain and discomfort. Given the patient is on Eliquis he cannot use any NSAIDs so we will plan on giving limited prescription for narcotic and encouraging continued use of acetaminophen. Medical Records Medical records reviewed: Yes I reviewed the patient's medical records. Lab Data Lab results reviewed: Yes I reviewed the patient's lab results. Exam Const General: cooperative, no acute distress and not ill appearing Orientation: alert, awake and oriented x3 HENMT Mouth: moist mucous membranes Resp Effort & Inspection: normal respiratory effort, able to speak in complete sentences and no respiratory distress Cardio Rate: regular rate Rhythm: regular rhythm Pulses: posterior tibial pulses present and dorsalis pedis present GI Inspection: obesity Palpation: soft, not firm, no guarding, not rigid and nontender Auscultation: normal bowel sounds Skin General skin exam: no rashes or lesions noted Neuro General: patient alert, patient awake, patient oriented x3, moves all extremities and no focal motor deficits Sensory Exam: no sensory deficits noted Sign Out Sign Out Data: Sign Out Comment: Pending re-evaluation and Right knee xray Last updated by Arabella Doe at 10/03/21 16:37 Discharge Plan Disposition Patient Disposition: HOME Condition: Stable Discharge Details Clinical Impression: Right ankle sprain, Contusion of multiple sites, Elevated white blood cell count Primary Care Provider: Gina Bravo ED Provider: Yuriy Talbert Home Meds and New Rx's Prescriptions: New oxycodone-acetaminophen 2.5-325 mg tablet 1 tab PO Q4H PRN (Reason: pain) Qty: 6 0RF No Action Jardiance 25 mg tablet 25 mg PO QAM Qty: 90 3RF Rx Instructions: Dose increase 09/23/2019 methylprednisolone [Medrol (Jame)] 4 mg tablets,dose pack See Rx Instructions PO DIRECTED Qty: 21 0RF Rx Instructions: 1 pack PO as directed; Myrbetriq 50 mg tablet extended release 24 hr 50 mg PO DAILY Qty: 90 3RF aspirin 81 mg tablet,delayed release (DR/EC) 81 mg PO DAILY Label Comments: 06/02/19-replaces 325mg. daily dose. [facility] discharge note. JOBY Mchugh nitroglycerin 0.4 mg tablet, sublingual 0.4 mg SL Q5M PRN (Reason: chest pain) Qty: 90 2RF Rx Instructions: Take 1 at onset of chest pain, may repeat x2 q5 min if pain continues. (DME) Blood Glucose Test Strip See Rx Instructions .MEDSUPPLY Qty: 400 3RF Rx Instructions: As directed to check blood glucose four times daily. On insulin. Dispense covered brand. (DME) lancets [FreeStyle Lancets] 28 gauge misc See Rx Instructions .ROUTE .MEDSUPPLY Qty: 400 3RF Rx Instructions: to test BS 4X daily for DM/E11.9 and to keep A1c at or under 7.0% insulin aspart U-100 [Novolog Flexpen U-100 Insulin] 100 unit/mL (3 mL) insulin pen See Rx Instructions Sub-Q AC Qty: 90 11RF Rx Instructions: 10-30 units per mealtime correction schedule subcut before meals; (DME) pen needle, diabetic [BD Ultra-Fine Amber Pen Needle] 32 gauge x 5/32 needle 1 ea Miscellaneous QID Qty: 400 3RF Rx Instructions: E11.65 to administer insulin 4x/day levothyroxine 50 mcg tablet 50 mcg PO DAILY Qty: 90 3RF Rx Instructions: Thyroid amlodipine 10 mg tablet 10 mg PO DAILY Qty: 90 3RF Rx Instructions: Blood pressure & Heart health Eliquis 5 mg tablet 5 mg PO BID Qty: 180 3RF furosemide 40 mg tablet 40 mg PO DAILY Qty: 90 3RF fenofibrate nanocrystallized [Tricor] 145 mg tablet 145 mg PO DAILY Qty: 90 3RF metoprolol tartrate 25 mg tablet 25 mg PO BID Qty: 180 3RF Rx Instructions: Heart Lantus Solostar U-100 Insulin 100 unit/mL (3 mL) insulin pen 74 unit Sub-Q QPM Qty: 60 4RF Rx Instructions: Or as directed for dx: E11.65 rosuvastatin 40 mg tablet See Rx Instructions .ROUTE .COMPLEX Qty: 90 3RF Dose Instruction: TAKE 1 TABLET DAILY Rx Instructions: TAKE 1 TABLET DAILY losartan 25 mg tablet See Rx Instructions .ROUTE .COMPLEX Qty: 90 3RF Dose Instruction: TAKE 1 TABLET AT BEDTIME FOR DIABETES, AND TO PROTECT KIDNEYS Rx Instructions: TAKE 1 TABLET AT BEDTIME FOR DIABETES, AND TO PROTECT KIDNEYS Discharge Instructions Instructions: Ankle Sprain (ED), Leukocytosis (ED), Contusion in Adults (ED) Additional Instructions: He may continue to take [id number] acetaminophen as needed for discomfort and you may apply cold compress and keep extremity elevated to help with the healing process. If you develop any new or worsening symptoms please return otherwise follow-up in 1 week for reassessment with your primary care provider for reassessment of your injuries. As discussed today you have an elevation of your white blood cells. Given that you had no other complaints beyond the pain from your trauma this may be secondary to trauma or an underlying process that is going on. If you develop any new or changing symptoms please return immediately to the emergency department for reassessment given that at this time you have no other complaints. Referrals: Gina Bravo NP [Primary Care Provider] - 5 days
[2021-10-03] MEDS: Acetaminophen 500 MG TAB 1000 MG PO (18:23)
--- NOTE | 2021-10-03 18:23 | NUR.NOTE ---
Nursing Note: PT INFO FAXED TO PCP TO FOLLOW UP EARLY NEXT WEEK. GHAZAL, TONYA
== END 2021-10-03 18:23 | disposition home or self-care (01) ==
PROVIDERS: Registered Nurse Emergency; Emergency Provider Nurse Practitioner Family; PCP Nurse Practitioner Adult Health
DX: S93.491A Sprain of other ligament of right ankle, initial encounter (principal); R10.31 Right lower quadrant pain; S30.1XXA Contusion of abdominal wall, initial encounter; M25.561 Pain in right knee; W01.0XXA Fall on same level from slipping, tripping and stumbling without subsequent striking against object, initial encounter; D72.829 Elevated white blood cell count, unspecified
CPT/HCPCS: 73562; 80053; 99284; 73610; 85025; 85610; 85730

== ENCOUNTER 2021-12-17 13:54 | Outpatient (CLI) | payer MEDICARE, OTHER, SELFPAY ==
[2021-12-17 14:47] LABS: Abs Immature Grans 0.03 10^3/uL (0.0-0.06); Absolute Basophil Count 0.04 10^3/uL (0.0-0.2); Absolute Eosinophil Count 0.13 10^3/uL (0.0-0.7); Absolute Lymphocyte Count 2.25 10^3/uL (1.2-3.4); Absolute Monocyte Count 0.76 10^3/uL (0.1-0.8); Absolute Neutrophil Count 6.72 10^3/uL (1.2-6.7); Basophils % 0.4; Eosinophils % 1.3; HCT 38.3 % (40.0-50.0); HGB 12.8 g/dL (13.5-17.5); Immature Grans % 0.3; Lymphocytes % 22.7; MCH 32.1 pg (27.0-33.0); MCHC 33.4 % (32.0-36.0); MCV 96 fL (80-95); MPV 10.8 fL (8.0-11.0); Monocytes % 7.7; Neutrophils % 67.6; Platelet Count 349 10^3/uL (130-400); RBC 3.99 10^6/uL (4.36-5.78); RDW 13.5 % (11.8-14.1); RDW-SD 47.7 fL; WBC 9.93 10^3/uL (4.4-10.8)
[2021-12-17 15:44] LABS: Iron 131 ug/dL (65-175); Total Iron Binding Capacity 533 ug/dL (250-450); Transferrin Sat 25 % (20-55)
[2021-12-17 15:55] LABS: ALT 26 U/L (16-63); AST 22 U/L (15-37); Albumin 4.4 g/dL (3.4-5.0); Alkaline Phosphatase 65 U/L (46-116); Anion Gap 9.4 mmol/L (3-11); BUN 48 mg/dL (7-18); Bilirubin, Total 0.5 mg/dL (0.2-1.0); CO2 27.6 mmol/L (21.0-32.0); CREATININE 1.6 mg/dL (0.70-1.30); Calcium 9.5 mg/dL (8.5-10.1); Chloride 102 mmol/L (98-107); Estimated GFR 43.07 (mL/min/1.73m2); Ferritin 159 ng/mL (26-388); Glucose 113 mg/dL (74-106); Sodium 139 mmol/L (136-145); TSH (W/Ref FT4) 2.74 uIU/mL (0.36-3.74); Total Protein 8.5 g/dL (6.4-8.2)
[2021-12-18 03:08] LABS: Folate 9.8 ng/mL (8.6-20.0); Vitamin B12 371 pg/mL (193-986)
== END 2021-12-17 13:55 | disposition home or self-care (01) ==
LOC: LBO 14:00
PROVIDERS: PCP Nurse Practitioner Adult Health; Visit Provider Student in an Organized Health Care Education/Training Program
DX: I10 Essential (primary) hypertension (principal); E03.9 Hypothyroidism, unspecified; E11.40 Type 2 diabetes mellitus with diabetic neuropathy, unspecified; I48.91 Unspecified atrial fibrillation; N18.30 Chronic kidney disease, stage 3 unspecified; N32.81 Overactive bladder; R42 Dizziness and giddiness
CPT/HCPCS: 36415; 80053; 82607; 82728; 82746; 83540; 83550; 84443; 85025

== ENCOUNTER 2021-12-24 11:56 | Outpatient (CLI) | payer MEDICARE, OTHER, SELFPAY ==
--- NOTE | 2021-12-24 11:45 | RT.EKG_ITS ---
APPROVED REPORT Exam: Resting ECG Reason for Exam: rhythm review Patient Location: O HR:57 bpm ECG Measurements Heart Rate 57 AXIS OK 240 P -53 QRSd 155 QRS -59 QT 461 T 20 QTc 449 Conclusion Sinus rhythm with atrial premature beats Prolonged OK interval...OK >220, V-rate 50- 90 RBBB and LAFB...QRSd >120mS, axis(-40,240)
== END 2021-12-24 11:57 | disposition home or self-care (01) ==
LOC: DI.KIM 11:58
PROVIDERS: PCP Nurse Practitioner Adult Health; Visit Provider Student in an Organized Health Care Education/Training Program
DX: D64.9 Anemia, unspecified (principal); E11.40 Type 2 diabetes mellitus with diabetic neuropathy, unspecified; I48.91 Unspecified atrial fibrillation; R00.1 Bradycardia, unspecified; R42 Dizziness and giddiness; R94.31 Abnormal electrocardiogram [ECG] [EKG]
CPT/HCPCS: 93010

== ENCOUNTER 2022-01-08 10:48 | Observation (INO) | payer MEDICARE, OTHER, SELFPAY ==
[2022-01-08] VITALS (71 sets, daily range): BP systolic 84–172; BP diastolic 25–112; PULSE 39–71; RESP 13–30; TEMP 36.4–37.7; O2SAT 89–100
--- NOTE | 2022-01-08 | DI.CT_ITS ---
Exam(s) CT HEAD WO EXAM: CT HEAD WO CLINICAL HISTORY: dizziness, headaches. TECHNIQUE: Imaging Protocol: Axial computed tomography images with coronal and sagittal reformatted images were created and reviewed COMPARISON: No exams were available for comparison FINDINGS: Ventricles and Extra axial spaces: Mild prominent ventricular size. Hemorrhage: None. Cerebral parenchyma: Normal. Midline shift: None. Brainstem/Cerebellum: Normal. Calvarium: Normal. Visualized Paranasal sinuses/Mastoids: Clear. Soft Tissues: Unremarkable. IMPRESSION: 1. No acute intracranial process. 2. Mild prominence of the ventricular size. If there is concern for NPH, follow-up as clinically ind icated. RADIATION DOSE DELIVERED: 927.83mGy.cm Total DLP DATA REPOSITORY: All CT scans at this facility are submitted to the National Radiology Data Registry (NRDR) Dose Index Registry (DIR) with the [employer] (A[employer]). RADIATION OPTIMIZATION: All CT scans at this facility use at least one of these dose optimization te chniques: automated exposure control; mA and/or kV adjustment per patient size (includes targeted exa ms where dose is matched to clinical indication); or iterative reconstruction.
--- NOTE | 2022-01-08 10:45 | RT.EKG_ITS ---
APPROVED REPORT Exam: Resting ECG Reason for Exam: chest pain Patient Location: E HR:50 bpm ECG Measurements Heart Rate 50 AXIS HI 390 P 0 QRSd 141 QRS -48 QT 440 T 8 QTc 404 Conclusion Bradycardia with irregular rate...V-rate 42- 59, mean < 60 Prolonged HI interval...HI >220, V-rate 50- 90 RBBB and LAFB...QRSd >120mS, axis(-40,240) Abnormal Electrocardiogram
--- NOTE | 2022-01-08 12:15 | DI.RAD_ITS ---
Exam(s) XR PORTABLE CHEST AP EXAM: XR PORTABLE CHEST AP CLINICAL HISTORY: chest pain TECHNIQUE: 2D digital imaging was performed of the chest. One image was obtained. An AP view was ob tained. COMPARISON: CR XR PORTABLE CHEST AP from 05/27/2019 FINDINGS: MEDIASTINUM: Normal. HEART: Cardiomegaly. PULMONARY VASCULATURE: Normal. LUNGS: Clear. PLEURAL SPACE: No pleural effusion or pneumothorax. BONE:Within normal limits for the patient's age. Sternal wires are again seen. OTHER FINDINGS:Normal. IMPRESSION: No acute pulmonary findings. DATA REPOSITORY: RADIATION DOSE DELIVERED:
--- NOTE | 2022-01-08 12:21 | ED.GENADUL_ITS ---
Discharge Plan Disposition Patient Disposition: STILL A PATIENT Condition: Serious Discharge Details Primary Care Provider: Gina Bravo ED Provider: Eduardo Mccarthy Home Meds and New Rx's Prescriptions: No Action Myrbetriq 50 mg tablet extended release 24 hr 50 mg PO DAILY Qty: 90 3RF (DME) FreeStyle Bahman 2 [place] Misc See Rx Instructions .ROUTE .MEDSUPPLY Qty: 1 0RF Rx Instructions: As directed (DME) FreeStyle Bahman 2 Sensor Kit See Rx Instructions .ROUTE .MEDSUPPLY Qty: 2 11RF Rx Instructions: As directed aspirin 81 mg tablet,delayed release (DR/EC) 81 mg PO DAILY Label Comments: 06/02/19-replaces 325mg. daily dose. [facility] discharge note. JOBY Mchugh nitroglycerin 0.4 mg tablet, sublingual 0.4 mg SL Q5M PRN (Reason: chest pain) Qty: 90 2RF Rx Instructions: Take 1 at onset of chest pain, may repeat x2 q5 min if pain continues. (DME) lancets [FreeStyle Lancets] 28 gauge misc See Rx Instructions .ROUTE .MEDSUPPLY Qty: 400 3RF Rx Instructions: to test BS 4X daily for DM/E11.9 and to keep A1c at or under 7.0% insulin aspart U-100 [Novolog Flexpen U-100 Insulin] 100 unit/mL (3 mL) insulin pen See Rx Instructions Sub-Q AC Qty: 90 11RF Rx Instructions: 10-30 units per mealtime correction schedule subcut before meals; (DME) pen needle, diabetic [BD Ultra-Fine Amber Pen Needle] 32 gauge x 5/32 needle 1 ea Miscellaneous QID Qty: 400 3RF Rx Instructions: E11.65 to administer insulin 4x/day levothyroxine 50 mcg tablet 50 mcg PO DAILY Qty: 90 3RF Rx Instructions: Thyroid amlodipine 10 mg tablet 10 mg PO DAILY Qty: 90 3RF Rx Instructions: Blood pressure & Heart health Eliquis 5 mg tablet 5 mg PO BID Qty: 180 3RF furosemide 40 mg tablet 40 mg PO DAILY Qty: 90 3RF fenofibrate nanocrystallized [Tricor] 145 mg tablet 145 mg PO DAILY Qty: 90 3RF metoprolol tartrate 25 mg tablet 25 mg PO BID Qty: 180 3RF Rx Instructions: Heart insulin glargine [Lantus Solostar U-100 Insulin] 100 unit/mL (3 mL) insulin pen 74 unit Sub-Q QPM Qty: 60 4RF Rx Instructions: Or as directed for dx: E11.65 rosuvastatin 40 mg tablet See Rx Instructions .ROUTE .COMPLEX Qty: 90 3RF Dose Instruction: TAKE 1 TABLET DAILY Rx Instructions: TAKE 1 TABLET DAILY losartan 25 mg tablet See Rx Instructions .ROUTE .COMPLEX Qty: 90 3RF Dose Instruction: TAKE 1 TABLET AT BEDTIME FOR DIABETES, AND TO PROTECT KIDNEYS Rx Instructions: TAKE 1 TABLET AT BEDTIME FOR DIABETES, AND TO PROTECT KIDNEYS Jardiance 25 mg tablet See Rx Instructions .ROUTE .COMPLEX Qty: 90 3RF Dose Instruction: TAKE 1 TABLET EVERY MORNING Rx Instructions: TAKE 1 TABLET EVERY MORNING melatonin 5 mg capsule 5 - 10 mg PO HS PRN (Reason: sleep difficulty) Qty: 60 1RF Rx Instructions: Sleep difficulty Jardiance 25 mg tablet 25 mg PO QAM Qty: 15 0RF (DME) Blood Glucose Test Strip See Rx Instructions .MEDSUPPLY Qty: 400 3RF Rx Instructions: As directed to check blood glucose four times daily. On insulin. Dispense covered brand. meclizine 25 mg tablet 25 mg PO BID PRN (Reason: dizziness) Qty: 60 0RF Rx Instructions: Take 25mg Qam and additional 25mg dose as needed in PM for vertigo. (1month trial). Medical Decision Making 1230 --71-year-old male with multiple medical problems including history of coronary artery disease status post CABG remotely, hypertension, diabetes, chronic kidney disease, here with chest discomfort that started earlier this morning, initially intermittent and now persistent since around 8 AM. Consider ACS. EKG was reviewed and interpreted by me: Bradycardic 50 bpm, first-degree AV block with SC interval of 390, left anterior fascicular and right bundle branch block present. I reviewed prior EKG from 12/24/2021 that also reveals first-degree AV block with right bundle branch and left anterior fascicular block. Plan to check troponin. I am also concerned about potential for symptomatic bradycardia given patient is intermittently dipping into the 30s. He is on a beta-abdi. HPI General Mode of arrival: ambulatory . Date/Time Provider Initiated Documentation: 01/08/22 12:18 . Limitations to Documentation: no limitations . Information obtained by: patient . HPI Narrative: 71-year-old male with history of multiple ankle problems including history of chronic kidney disease, stage III, diabetes, coronary artery disease status post CABG about 10 years ago, hypertension, hyperlipidemia, obesity, here with chief complaint of chest discomfort. Patient notes he woke up around 3:57 AM with chest discomfort described as a congestion with associated nausea and dizziness. Symptoms resolved and then recurred around 8 AM. Chest pain is currently mild described as a discomfort rated 3/10. He has some mild associated nausea. No shortness of breath. No leg pain or swelling. Related Data Home Medications Medication Instructions Recorded Confirmed aspirin 81 mg tablet,delayed 81 mg PO DAILY 06/02/19 01/06/22 release nitroglycerin 0.4 mg sublingual 0.4 mg sublingual Q5M PRN chest 11/07/20 01/06/22 tablet pain #90 tabs lancets 28 gauge (FreeStyle #400 ea 02/11/21 01/06/22 Lancets) mirabegron 50 mg tablet,extended 50 mg PO DAILY #90 tabs 03/19/21 01/06/22 release 24 hr (Myrbetriq) insulin aspart U-100 100 unit/mL See Rx Instructions subcut AC #90 03/21/21 01/06/22 (3 mL) subcutaneous pen (Novolog mL Flexpen U-100 Insulin aspart) pen needle, diabetic 32 gauge x #400 ea 03/25/21 01/06/22 5/32 (BD Ultra-Fine Amber Pen Needle) amlodipine 10 mg tablet 10 mg PO DAILY #90 tabs 05/24/21 01/06/22 apixaban 5 mg tablet (Eliquis) 5 mg PO BID #180 tabs 05/24/21 01/06/22 fenofibrate nanocrystallized 145 145 mg PO DAILY #90 tab-caps 05/24/21 01/06/22 mg tablet (Tricor) furosemide 40 mg tablet 40 mg PO DAILY #90 tabs 05/24/21 01/06/22 levothyroxine 50 mcg tablet 50 mcg PO DAILY #90 tab-caps 05/24/21 01/06/22 metoprolol tartrate 25 mg tablet 25 mg PO BID #180 tab-caps 05/24/21 01/06/22 insulin glargine 100 unit/mL (3 74 unit (0.74 mL) subcut QPM #60 mL 08/14/21 01/06/22 mL) subcutaneous pen (Lantus Solostar U-100 Insulin) losartan 25 mg tablet See Rx Instructions .Route 09/24/21 01/06/22 .COMPLEX #90 tabs rosuvastatin 40 mg tablet See Rx Instructions .Route 09/24/21 01/06/22 .COMPLEX #90 tabs empagliflozin 25 mg tablet See Rx Instructions .Route 10/15/21 01/06/22 (Jardiance) .COMPLEX #90 tabs flash glucose scanning reader #1 ea 11/17/21 01/06/22 (FreeStyle Bahman 2 [place]) flash glucose sensor (FreeStyle #2 ea 11/17/21 01/06/22 Bahman 2 Sensor kit) melatonin 5 mg capsule 5 - 10 mg PO HS PRN sleep 11/17/21 01/06/22 difficulty #60 caps empagliflozin 25 mg tablet 25 mg PO QAM #15 tabs 11/29/21 01/06/22 (Jardiance) blood sugar diagnostic (Blood #400 ea 12/13/21 01/06/22 Glucose Test strips) meclizine 25 mg tablet 25 mg PO BID PRN dizziness #60 tabs 12/27/21 01/06/22 Previous Rx's Medication Instructions Recorded nitroglycerin 0.4 mg sublingual 0.4 mg sublingual Q5M PRN chest 11/07/20 tablet pain #90 tabs lancets 28 gauge (FreeStyle #400 ea 02/11/21 Lancets) mirabegron 50 mg tablet,extended 50 mg PO DAILY #90 tabs 03/19/21 release 24 hr (Myrbetriq) insulin aspart U-100 100 unit/mL See Rx Instructions subcut AC #90 03/21/21 (3 mL) subcutaneous pen (Novolog mL Flexpen U-100 Insulin aspart) pen needle, diabetic 32 gauge x #400 ea 03/25/21 (BD Ultra-Fine Amber Pen Needle) amlodipine 10 mg tablet 10 mg PO DAILY #90 tabs 05/24/21 apixaban 5 mg tablet (Eliquis) 5 mg PO BID #180 tabs 05/24/21 fenofibrate nanocrystallized 145 145 mg PO DAILY #90 tab-caps 05/24/21 mg tablet (Tricor) furosemide 40 mg tablet 40 mg PO DAILY #90 tabs 05/24/21 levothyroxine 50 mcg tablet 50 mcg PO DAILY #90 tab-caps 05/24/21 metoprolol tartrate 25 mg tablet 25 mg PO BID #180 tab-caps 05/24/21 insulin glargine 100 unit/mL (3 74 unit (0.74 mL) subcut QPM #60 mL 08/14/21 mL) subcutaneous pen (Lantus Solostar U-100 Insulin) losartan 25 mg tablet See Rx Instructions .Route 09/24/21 .COMPLEX #90 tabs rosuvastatin 40 mg tablet See Rx Instructions .Route 09/24/21 .COMPLEX #90 tabs empagliflozin 25 mg tablet See Rx Instructions .Route 10/15/21 (Jardiance) .COMPLEX #90 tabs flash glucose scanning reader #1 ea 11/17/21 (FreeStyle Bahman 2 [place]) flash glucose sensor (FreeStyle #2 ea 11/17/21 Bahman 2 Sensor kit) melatonin 5 mg capsule 5 - 10 mg PO HS PRN sleep 11/17/21 difficulty #60 caps empagliflozin 25 mg tablet 25 mg PO QAM #15 tabs 11/29/21 (Jardiance) blood sugar diagnostic (Blood #400 ea 12/13/21 Glucose Test strips) meclizine 25 mg tablet 25 mg PO BID PRN dizziness #60 tabs 12/27/21 Allergies Allergy/AdvReac Type Severity Reaction Status Date / Time No Known Allergies Allergy Verified 12/31/21 12:20 General Stated Complaint: Chest Pain CHRISTIANE: 2 PFSH All Active Problems (Updated 01/03/22 @ 15:26 by Clare Medley DO) Ataxia (Acute) Unsteady gait (Acute) Keeps losing balance (Acute) Anemia (Chronic) Slow heart rate (Acute) Dizziness (Acute) Diabetes mellitus with neuropathy (Chronic) Reduced monofilament 06/24/2019 Goal A1C 7.5% or less Overactive bladder (Acute) Myrbetriq started [ ] ... Oxybutynin, discontinued 06/24/19 in favor of optimizing DMT2 management Uncontrolled diabetes mellitus (Acute) Goal </=7.5% Atrial fibrillation (Chronic) Apixaban 06/22/2019 CKD (chronic kidney disease), stage III (Chronic) Coronary artery disease (Chronic) 3-vessel (LAD, LCX, RCA) Cardiomegaly (Acute) CXR; ECHO 05/2019 [facility]--LVEF 53%, +LVH (mild), no significant valvular disease; stable compared with 2017 study Current use of insulin (Chronic) MERIRTT (obstructive sleep apnea) (Chronic) Bi-PAP 07/23/19 Arthritis of both knees (Chronic) Acquired hypothyroidism (Acute 10/28/16) High TSH, but WNL T4 (2021) .. 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 Depressive disorder marital issues Diabetes mellitus type 2 in obese Essential hypertension H/O renal calculi History of nicotine dependence Hypomagnesemia (06/22/14) Only 1.0 in the ER today. Hypothyroidism Kidney stone calcium oxylate Knee contusion Left ankle sprain Low back pain L4-[address] [place] fracture of left fibula (05/07/16) Nicotine dependence Cessated Pipe smoker SARS-CoV-2 positive (~04/2021) Tendinitis of right shoulder Umbilical hernia Recurrent x 2, repaired x 3. Surgical History Appendectomy Colonoscopy - IV Sedation Extraction of cataract 11/23/14; DR. GOINS; RIGHT EYE 12/07/14; DR. GOINS; LEFT EYE Fracture, Open Treatment ORIF-LEFT SYNDESMOSIS WITH TWO SCREWS History of cataract removal with insertion of prosthetic lens (11/23/14) History of umbilical hernia repair Repair of umbilical hernia S/P cardiac catheterization (01/28/20) Status post appendectomy Status post coronary artery bypass with autogenous graft, 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) 2017 Status post coronary artery stent placement (09/26/16) One vessel for unstable angina Family History Father Diabetes Dementia Neoplasm PANCREATIC Social History Smoking/Tobacco Use Status: Former Tobacco Use Quit Date: 01/02/17 Pack-years: 40 Tobacco: How many years used: 40 Smoking risk assessment performed?: Yes Alcohol Intake: current Alcohol Intake frequency: a few times a week Alcohol type: beer and hard liquor Counseling given: Yes Counseling provided: reduce to 2 or less/day Details: 3-5 nights/wk drinks shot of hard liquor and multiple beers (3) Drug use: Never Substance use type: does not use Adopted: No Caregiver/Support person: No Foster care: No Household members: none and other Details: Cats Number of Children: 3 number of grandchildren: 4 Communication Needs: None Do you need help understanding health information?: Rarely Pets and animals: Yes Pets and animals: cat(s) Do you think of yourself as: straight/heterosexual Current gender identity: male What is your relationship status?: Panel score (0-1 are the most socially isolated patients): 0 What type of physical activity do you participate in: none Seatbelt use: always Drive intox 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 telephone directory 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 Exam Const General: cooperative and no acute distress HENMT Mouth: moist mucous membranes Eyes Sclera: normal sclerae Neck Neck: trachea midline and supple Resp Auscultation: clear to auscultation bilaterally, no rales, no rhonchi and no wheezes Cardio Rate: regular rate and not tachycardic Rhythm: regular rhythm Heart Sounds: no murmurs GI Palpation: soft, not firm, no guarding, no masses, not rigid and nontender Skin General skin exam: no rashes or lesions noted Neuro General: patient alert, patient awake and tone normal Extrem General: no calf tenderness and no edema Psych Appearance: grossly normal Mental Status: mental status grossly normal Course Vital Signs Vital signs: Vital Signs Temperature 36.4 C L 01/08/22 10:55 Pulse 47 L 01/08/22 10:55 Respiratory Rate 20 01/08/22 10:55 Blood Pressure 140/65 01/08/22 10:55 Pulse Oximetry 97 01/08/22 10:55 Temperature 36.4 C L 01/08/22 10:55 Temperature Source Tympanic 01/08/22 10:55 Pulse 47 L 01/08/22 10:55 Respiratory Rate 18 01/08/22 11:49 Respiratory Effort Non-Labored 01/08/22 11:49 Respiratory Depth Normal 01/08/22 11:49 Respiratory Pattern Normal 01/08/22 11:49 Blood Pressure 140/65 01/08/22 10:55 Blood Pressure Position Sitting 01/08/22 10:55 Pulse Oximetry 97 01/08/22 10:55 Oxygen Delivery Method Room Air 01/08/22 10:55 Oxygen Flow Rate 0 01/08/22 10:55 Pain Level 0 01/08/22 10:55 PAWSS Have you Been Recently Intoxicated or Drunk Within the Last 30 days?: No Have you Ever Experienced Previous Episodes of Alcohol Withdrawal?: No Have you ever Experienced Withdrawal Seizures?: No Have you ever Experienced Delirium Tremens(DT)s?: No Have you ever undergone Alcohol Rehabilitation Treatment (i.e, inpt ot outpatient treatment programs)?: No Have you ever Experienced Blackouts?: No Have you ever Combined Alcohol with other Downers within the last 90 days?: No Have you ever Combined Alcohol with any other Substance of Abuse during the last 90 days?: No Result: 0
[2022-01-08 13:16] LABS: Source Nasal/Nares
[2022-01-08 14:13] LABS: Abs Immature Grans 0.04 10^3/uL (0.0-0.06); Absolute Basophil Count 0.04 10^3/uL (0.0-0.2); Absolute Eosinophil Count 0.12 10^3/uL (0.0-0.7); Absolute Lymphocyte Count 1.34 10^3/uL (1.2-3.4); Absolute Monocyte Count 0.89 10^3/uL (0.1-0.8); Basophils % 0.3; HCT 35.8 % (40.0-50.0); HGB 11.3 g/dL (13.5-17.5); Immature Grans % 0.3; Lymphocytes % 10.9; MCHC 31.6 % (32.0-36.0); MCV 101 fL (80-95); MPV 10.5 fL (8.0-11.0); Monocytes % 7.2; Neutrophils % 80.3; Platelet Count 289 10^3/uL (130-400); RBC 3.53 10^6/uL (4.36-5.78); RDW 14.6 % (11.8-14.1); RDW-SD 53.7 fL
[2022-01-08 14:16] LABS: Absolute Neutrophil Count 9.88 10^3/uL (1.2-6.7)
--- NOTE | 2022-01-08 14:27 | W.ANESVAS ---
Peripheral IV Placement Date Performed: 01/08/22 Procedure Time: 14:05 Requesting Provider: Eduardo Mccarthy Procedure Location: Emergency Department Sedation Given (Indicate Dose Given): No Sedation given Patient Mental Status: Awake Laterality: Left Insertion Site: Basilic Size & Type: 20 ga. and Other (20g Arrow) Dressing: IV Dressing Placed and Tegaderm Applied Ultrasound: Used to gee site Number of Attempts (See previous attempts in note section): 1 Procedure Tolerated: No Complications Procedure Outcome: Successful Procedure Comment: Requested to place PIV by Dr. Mccarthy, ultrasound guidance, blood obtained and sent to lab. Patient tolerated procedure well. Performed By: Amelia Grimes
[2022-01-08 14:34] LABS: ALT 22 U/L (16-63); AST 21 U/L (15-37); Albumin 3.8 g/dL (3.4-5.0); Alkaline Phosphatase 64 U/L (46-116); Anion Gap 4.2 mmol/L (3-11); BUN 36 mg/dL (7-18); Bilirubin, Total 0.3 mg/dL (0.2-1.0); CO2 28.8 mmol/L (21.0-32.0); CREATININE 1.7 mg/dL (0.70-1.30); Calcium 9.5 mg/dL (8.5-10.1); Chloride 108 mmol/L (98-107); Glucose 127 mg/dL (74-106); Potassium 5.3 mmol/L (3.5-5.1); Sodium 141 mmol/L (136-145); Total Protein 7.3 g/dL (6.4-8.2); Troponin I < 50 ng/L (<or=60)
[2022-01-08 14:45] LABS: TSH (W/Ref FT4) 2.61 uIU/mL (0.36-3.74)
--- NOTE | 2022-01-08 16:23 | W.EDPROG ---
Date of service: 01/08/22 Time of Service: 16:23 Medical Decision Making pt seen originally by Dr. Eduardo Mccarthy then Dr. Marlen Mccarthy, signed out to me pending assessment after gi cocktail. He states he did not notice much change with it. He tells me he came in today as when he woke up he felt like he was going to pass out and had chest tightness and resolved after a few minutes but then had a recurrent sensation a few hours later. He states he has a chest ache now that he rates at 0.5/10 and doesn't bother him. Given his history and sensation of almost passing out will discuss with hospitalist about observation admission Sign Out Sign Out Data: Sign Out Comment: followup labs and ressess patient for disposition Last updated by Eduardo Mccarthy MD at 01/08/22 12:36 Sign Out Comment: Pt signed out to Dr. Banks at shift change with GI cocktail, admission pending Last updated by Marlen Mccarthy MD at 01/08/22 15:34 Discharge Plan Disposition Patient Disposition: [facility] INPATIENT Condition: Stable Discharge Details Clinical Impression: Chest pain, Pre-syncope Primary Care Provider: Gina Bravo ED Provider: Gaurav Banks Home Meds and New Rx's Prescriptions: No Action Myrbetriq 50 mg tablet extended release 24 hr 50 mg PO DAILY Qty: 90 3RF (DME) FreeStyle Bahman 2 [place] Misc See Rx Instructions .ROUTE .MEDSUPPLY Qty: 1 0RF Rx Instructions: As directed (DME) FreeStyle Bahman 2 Sensor Kit See Rx Instructions .ROUTE .MEDSUPPLY Qty: 2 11RF Rx Instructions: As directed aspirin 81 mg tablet,delayed release (DR/EC) 81 mg PO DAILY Label Comments: 06/02/19-replaces 325mg. daily dose. [facility] [place] discharge note. JOBY Mchugh nitroglycerin 0.4 mg tablet, sublingual 0.4 mg SL Q5M PRN (Reason: chest pain) Qty: 90 2RF Rx Instructions: Take 1 at onset of chest pain, may repeat x2 q5 min if pain continues. (DME) lancets [FreeStyle Lancets] 28 gauge misc See Rx Instructions .ROUTE .MEDSUPPLY Qty: 400 3RF Rx Instructions: to test BS 4X daily for DM/E11.9 and to keep A1c at or under 7.0% insulin aspart U-100 [Novolog Flexpen U-100 Insulin] 100 unit/mL (3 mL) insulin pen See Rx Instructions Sub-Q AC Qty: 90 11RF Rx Instructions: 10-30 units per mealtime correction schedule subcut before meals; (DME) pen needle, diabetic [BD Ultra-Fine Amber Pen Needle] 32 gauge x 5/32 needle 1 ea Miscellaneous QID Qty: 400 3RF Rx Instructions: E11.65 to administer insulin 4x/day levothyroxine 50 mcg tablet 50 mcg PO DAILY Qty: 90 3RF Rx Instructions: Thyroid amlodipine 10 mg tablet 10 mg PO DAILY Qty: 90 3RF Rx Instructions: Blood pressure & Heart health Eliquis 5 mg tablet 5 mg PO BID Qty: 180 3RF furosemide 40 mg tablet 40 mg PO DAILY Qty: 90 3RF fenofibrate nanocrystallized [Tricor] 145 mg tablet 145 mg PO DAILY Qty: 90 3RF metoprolol tartrate 25 mg tablet 25 mg PO BID Qty: 180 3RF Rx Instructions: Heart insulin glargine [Lantus Solostar U-100 Insulin] 100 unit/mL (3 mL) insulin pen 74 unit Sub-Q QPM Qty: 60 4RF Rx Instructions: Or as directed for dx: . rosuvastatin 40 mg tablet See Rx Instructions .ROUTE .COMPLEX Qty: 90 3RF Dose Instruction: TAKE 1 TABLET DAILY Rx Instructions: TAKE 1 TABLET DAILY losartan 25 mg tablet See Rx Instructions .ROUTE .COMPLEX Qty: 90 3RF Dose Instruction: TAKE 1 TABLET AT BEDTIME FOR DIABETES, AND TO PROTECT KIDNEYS Rx Instructions: TAKE 1 TABLET AT BEDTIME FOR DIABETES, AND TO PROTECT KIDNEYS Jardiance 25 mg tablet See Rx Instructions .ROUTE .COMPLEX Qty: 90 3RF Dose Instruction: TAKE 1 TABLET EVERY MORNING Rx Instructions: TAKE 1 TABLET EVERY MORNING melatonin 5 mg capsule 5 - 10 mg PO HS PRN (Reason: sleep difficulty) Qty: 60 1RF Rx Instructions: Sleep difficulty Jardiance 25 mg tablet 25 mg PO QAM Qty: 15 0RF (DME) Blood Glucose Test Strip See Rx Instructions .MEDSUPPLY Qty: 400 3RF Rx Instructions: As directed to check blood glucose four times daily. On insulin. Dispense covered brand. meclizine 25 mg tablet 25 mg PO BID PRN (Reason: dizziness) Qty: 60 0RF Rx Instructions: Take 25mg Qam and additional 25mg dose as needed in PM for vertigo. (1month trial).
--- NOTE | 2022-01-08 16:41 | HPE_ITS ---
Date of service: 01/08/22 Time of Service: 16:41 Assessment and Plan Assessment and plan (1) Dizziness: Status: Acute Assessment and plan: will place on observation on telemetry, consider discharge on kil[place]man if needed with history of dizziness for past 2 weeks most associated with position changes, pcp trialed meclizine which he tried for 5 days bid with no effect, consider maybe d/t bradycardia and/or hypotension. check orthostatic vital signs adjust medication as needed. will cycle troponin, labs unremarkable thus far (2) Chest pain: Status: Acute Assessment and plan: episode in night that woke him up associated with nausea, returned this am and has been constant and mild while in ED (reported at 0.5 out of 10), no alleviating or aggravating factors identified. no dysrhythmia on telemetry while monitored in ED, no acute st segment changes on EKG, initial troponin negative. doubt represents ACS. unchanged by gi cocktail. consider PPI will continue to monitor on telemetry. (3) Coronary artery disease: Status: Chronic Assessment and plan: ECHO 05/2019 [facility] [place]VEF 53%, +LVH (mild), no significant valvular disease; stable compared with 2017 study on asa, betablocker and statin. will cycle troponin Qualifiers: Associated angina: with unstable angina Coronary Disease-Associated Artery/Lesion type: unspecified vessel or lesion type Sax[place] vs. transplanted heart: unspecified whether knik or transplanted heart Qualified Code(s): I25.110 - Atherosclerotic heart disease of knik coronary artery with unstable angina pectoris (4) Diabetes mellitus with neuropathy: Status: Chronic Assessment and plan: hemoglobin A1C 8.[address] on carb controlled diet, diabetes education referral will reduce dose of lantus from 74 to 50 while hospitalized and adjust as needed. sliding scale ac/hs as needed. Qualifiers: Diabetes mellitus care home insulin use: with termination clerk use Diabetes mellitus type: type 2 Qualified Code(s): E11.40 - Type 2 diabetes mellitus with diabetic neuropathy, unspecified; Z79.4 - FDC (current) use of insulin (5) Atrial fibrillation: Status: Chronic Assessment and plan: with history of bradycardia. heart rate down into the 50's in ED. will continue engineering psychologist with cardiac recorder on discharge if appropriate. consider decreasing metoprolol dosing but reluctant to withhold secondary to rebound tachy or UCAF fully anticoagulated on apixaban (6) Acquired hypothyroidism: Status: Acute Assessment and plan: TSH 2.61. will continue home dosing of synthroid (7) Essential hypertension: Status: Chronic Assessment and plan: continue amlodipine, losartan (8) MERRITT (obstructive sleep apnea): Status: Chronic Assessment and plan: family to bring in home unit and will continue with usual settings as directed. (9) Hyperlipidemia: Status: Chronic Assessment and plan: continue fenofibrate and rosuvastatin Qualifiers: Hyperlipidemia type: mixed hyperlipidemia Qualified Code(s): E78.2 - Mixed hyperlipidemia (10) CKD (chronic kidney disease), stage III: Status: Chronic Assessment and plan: creatinine at baseline. monitor and avoid nephrotoxic drugs. Qualifiers: Chronic kidney disease stage 3 subtype: stage 3a (GFR 45-59) Qualified Code(s): N18.31 - Chronic kidney disease, stage 3a (11) Discharge planning issues: Status: Acute Assessment and plan: anticipate discharge to home tomorrow with no services. discussed with Dr Angulo History of Present Illness History of Present Illness Chief Complaint: chest pressure and dizziness Narrative: awakened during night with nausea and dizziness. reports chest pressure. symptoms resolved then reoccurred, no alleviating or aggravating factors dizziness ongoing past 2 weeks, saw pcp and trialed meclizine with no effect for 5 days, ongoing outpatient work up still pending no acute ekg changes in ED, chest pressure mild and not improved with gi cocktail. trops negative. no illness, fever or resp symptoms. referred to obs for dizziness with chest pressure. Review of Systems All systems reviewed & are unremarkable except as noted in HPI and below Cardiovascular Cardiovascular: Reports chest pain and Denies dyspnea Respiratory Respiratory: Denies dyspnea PFSH All Active Problems (Updated 01/08/22 @ 17:07 by Xiomara Ornelas NP) Discharge planning issues (Acute) Chest pain (Acute) Pre-syncope (Acute) Ataxia (Acute) Unsteady gait (Acute) Keeps losing balance (Acute) Anemia (Chronic) Slow heart rate (Acute) Dizziness (Acute) Diabetes mellitus with neuropathy (Chronic) Reduced monofilament 06/24/2019 Goal A1C 7.5% or less Overactive bladder (Acute) Myrbetriq started [ ] ... Oxybutynin, discontinued 06/24/19 in favor of optimizing DMT2 management Uncontrolled diabetes mellitus (Acute) Goal </=7.5% Atrial fibrillation (Chronic) Apixaban 06/22/2019 CKD (chronic kidney disease), stage III (Chronic) Coronary artery disease (Chronic) 3-vessel (LAD, LCX, RCA) Cardiomegaly (Acute) CXR; ECHO 05/2019 [facility] [place]LVEF 53%, +LVH (mild), no significant valvular disease; stable compared with 2017 study Current use of insulin (Chronic) MERRITT (obstructive sleep apnea) (Chronic) Bi-PAP 07/23/19 Arthritis of both knees (Chronic) Acquired hypothyroidism (Acute 10/28/16) High TSH, but WNL T4 (2021) .. 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 Depressive disorder marital issues Diabetes mellitus type 2 in obese Essential hypertension H/O renal calculi History of nicotine dependence Hypomagnesemia (06/22/14) Only 1.0 in the ER today. Hypothyroidism Kidney stone calcium oxylate Knee contusion Left ankle sprain Low back pain L4-[address] [place]ison[place]uve fracture of left fibula (05/07/16) Nicotine dependence Cessated Pipe smoker SARS-CoV-2 positive (~04/2021) Tendinitis of right shoulder Umbilical hernia Recurrent x 2, repaired x 3. Surgical History Appendectomy Colonoscopy - IV Sedation Extraction of cataract 11/23/14; DR. GOINS; RIGHT EYE 12/07/14; DR. GOINS; LEFT EYE Fracture, Open Treatment ORIF-LEFT SYNDESMOSIS WITH TWO SCREWS History of cataract removal with insertion of prosthetic lens (11/23/14) History of umbilical hernia repair Repair of umbilical hernia S/P cardiac catheterization (05/31/19) Status post appendectomy Status post coronary artery bypass with autogenous graft, 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) 2017 Status post coronary artery stent placement (09/26/16) One vessel for unstable angina Family History Father Diabetes Dementia Neoplasm PANCREATIC Social History Smoking/Tobacco Use Status: Former Tobacco Use Quit Date: 01/02/17 Pack-years: 40 Tobacco: How many years used: 40 Smoking risk assessment performed?: Yes Alcohol Intake: current Alcohol Intake frequency: a few times a week Alcohol type: beer and hard liquor Counseling given: Yes Counseling provided: reduce to 2 or less/day Details: 3-5 nights/wk drinks shot of hard liquor and multiple beers (3) Drug use: Never Substance use type: does not use Adopted: No Caregiver/Support person: No Foster care: No Household members: none and other Details: Cats Number of Children: 3 number of grandchildren: 4 Communication Needs: None Do you need help understanding health information?: Rarely Pets and animals: Yes Pets and animals: cat(s) Do you think of yourself as: straight/heterosexual Current gender identity: male What is your relationship status?: Panel score (0-1 are the most socially isolated patients): 0 What type of physical activity do you participate in: none Seatbelt use: always Drive intox 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 Meds Allergies and Home Medications Allergies Allergy/AdvReac Type Severity Reaction Status Date / Time No Known Allergies Allergy Verified 01/08/22 17:20 Home Medications Medication Instructions Recorded Confirmed Type aspirin 81 mg tablet,delayed 81 mg PO DAILY 06/02/19 01/08/22 History release nitroglycerin 0.4 mg sublingual 0.4 mg sublingual Q5M PRN chest 11/07/20 01/08/22 Rx tablet pain #90 tabs lancets 28 gauge (FreeStyle #400 ea 02/11/21 01/08/22 Rx Lancets) mirabegron 50 mg tablet,extended 50 mg PO DAILY #90 tabs 03/19/21 01/08/22 Rx release 24 hr (Myrbetriq) insulin aspart U-100 100 unit/mL See Rx Instructions subcut AC #90 03/21/21 01/08/22 Rx (3 mL) subcutaneous pen (Novolog mL Flexpen U-100 Insulin aspart) pen needle, diabetic 32 gauge x #400 ea 03/25/21 01/08/22 Rx /32 (BD Ultra-Fine Amber Pen Needle) amlodipine 10 mg tablet 10 mg PO DAILY #90 tabs 05/24/21 01/08/22 Rx apixaban 5 mg tablet (Eliquis) 5 mg PO BID #180 tabs 05/24/21 01/08/22 Rx fenofibrate nanocrystallized 145 145 mg PO DAILY #90 tab-caps 05/24/21 01/08/22 Rx mg tablet (Tricor) furosemide 40 mg tablet 40 mg PO DAILY #90 tabs 05/24/21 01/08/22 Rx levothyroxine 50 mcg tablet 50 mcg PO DAILY #90 tab-caps 05/24/21 01/08/22 Rx metoprolol tartrate 25 mg tablet 25 mg PO BID #180 tab-caps 05/24/21 01/08/22 Rx insulin glargine 100 unit/mL (3 74 unit (0.74 mL) subcut QPM #60 mL 08/14/21 01/08/22 Rx mL) subcutaneous pen (Lantus Solostar U-100 Insulin) losartan 25 mg tablet See Rx Instructions .Route 09/24/21 01/08/22 Rx .COMPLEX #90 tabs rosuvastatin 40 mg tablet See Rx Instructions .Route 09/24/21 01/08/22 Rx .COMPLEX #90 tabs empagliflozin 25 mg tablet See Rx Instructions .Route 10/15/21 01/08/22 Rx (Jardiance) .COMPLEX #90 tabs flash glucose scanning reader #1 ea 11/17/21 01/08/22 Rx (FreeStyle [place]man 2 [place]) flash glucose sensor (FreeStyle #2 ea 11/17/21 01/08/22 Rx Bahman 2 Sensor kit) melatonin 5 mg capsule 5 - 10 mg PO HS PRN sleep 11/17/21 01/08/22 Rx difficulty #60 caps empagliflozin 25 mg tablet 25 mg PO QAM #15 tabs 11/29/21 01/08/22 Rx (Jardiance) blood sugar diagnostic (Blood #400 ea 12/13/21 01/08/22 Rx Glucose Test strips) meclizine 25 mg tablet 25 mg PO BID PRN dizziness #60 tabs 12/27/21 01/08/22 Rx Exam Const General: cooperative, comfortable and no acute distress Nutritional Appearance: obese Orientation: alert, awake and oriented x3 HENMT Head: normal to inspection, normocephalic and atraumatic Mouth: oral mucosae normal Chest Chest: normal inspection of the chest Resp Effort & Inspection: normal respiratory effort and able to speak in complete sentences Auscultation: clear to auscultation bilaterally and diminished lung sounds (bases) Cardio Rate: bradycardic Rhythm: abnormal rhythm (Overcontrolled afib) GI Inspection: obesity Palpation: soft Skin General skin exam: no rashes or lesions noted Neuro General: patient alert, patient awake, patient oriented x3, gait normal (furniture surfs), tone normal, moves all extremities and no focal motor deficits Cranial Nerves: EOM intact bilaterally, no nystagmus and facial strength normal Cognition: normal cognition Speech: speech normal Motor: muscle tone normal throughout Extrem General: normal to inspection and no pedal edema Results Labs Result diagrams: 01/08/22 14:04 01/08/22 14:04 Labs: Laboratory Results - last 24 hr 01/08/22 01/08/22 01/08/22 13:07 14:04 14:04 WBC RBC Hgb Hct MCV MCH MCHC RDW Plt Count MPV Immature Gran % Neutrophils % Lymphocytes % Monocytes % Eosinophils % Basophils % Nucleated RBC % Absolute Neutrophils Absolute Lymphocytes Absolute Monocytes Absolute Eosinophils Absolute Basophils PT 10.0 INR 1.0 Sodium 141 Potassium 5.3 H Chloride 108 H Carbon Dioxide 28.8 Anion Gap 4.2 BUN 36 H Creatinine 1.7 H Est GFR (CKD-EPI 2020) 43.10 Glucose 127 H Calcium 9.5 Magnesium 2.0 Total Bilirubin 0.3 AST 21 ALT 22 Alkaline Phosphatase 64 Troponin I < 50 Total Protein 7.3 Albumin 3.8 TSH COVID-19 Source Nasal/Nares 01/08/22 01/08/22 01/08/22 14:04 14:04 15:19 WBC 12.30 H RBC 3.53 L Hgb 11.3 L Hct 35.8 L MCV 101 H MCH 32.0 MCHC 31.6 L RDW 14.6 H Plt Count 289 MPV 10.5 Immature Gran % 0.3 Neutrophils % 80.3 Lymphocytes % 10.9 Monocytes % 7.2 Eosinophils % 1.0 Basophils % 0.3 Nucleated RBC % 0.0 Absolute Neutrophils 9.88 H Absolute Lymphocytes 1.34 Absolute Monocytes 0.89 H Absolute Eosinophils 0.12 Absolute Basophils 0.04 PT INR Sodium Potassium Chloride Carbon Dioxide Anion Gap BUN Creatinine Est GFR (CKD-EPI 2020) Glucose Calcium Magnesium Total Bilirubin AST ALT Alkaline Phosphatase Troponin I Cancelled Total Protein Albumin TSH 2.61 COVID-19 Source Last Vital Signs Temp 36.4 C L 01/08/22 10:55 Pulse 52 L 01/08/22 15:31 Resp 15 01/08/22 15:50 BP 99/76 L 01/08/22 15:31 Pulse Ox 97 01/08/22 15:50 PAWSS Have you Been Recently Intoxicated or Drunk Within the Last 30 days?: No Have you Ever Experienced Previous Episodes of Alcohol Withdrawal?: No Have you ever Experienced Withdrawal Seizures?: No Have you ever Experienced Delirium Tremens(DT)s?: No Have you ever undergone Alcohol Rehabilitation Treatment (i.e, inpt ot outpatient treatment programs)?: No Have you ever Experienced Blackouts?: No Have you ever Combined Alcohol with other Downers within the last 90 days?: No Have you ever Combined Alcohol with any other Substance of Abuse during the last 90 days?: No Result: 0
[2022-01-08 18:22] LABS: COVID-19 PCR Negative (Negative)
--- NOTE | 2022-01-08 18:40 | NUR.NOTE ---
Nursing Note: Pt up from ER, feeling dizzy and shaky, FSBS taken 59, OJ given, recheck FSBS 69 in 15 mins, pt eating dinner at this time, VSS, denies pain.
[2022-01-08] MEDS: LORazepam 1 MG TAB PO (19:46)
--- NOTE | 2022-01-08 20:30 | DI.VRAD_ITS ---
PROCEDURE INFORMATION: Exam: CT Head Without Contrast Exam date and time: 01/08/2022 8:22 PM Age: 71 years old Clinical indication: Dizziness and other: Dizziness, headaches TECHNIQUE: Imaging protocol: Computed tomography of the head without contrast. Radiation optimization: All CT scans at this facility use at least one of these dose optimization techniques: automated exposure control; mA and/or kV adjustment per patient size (includes targeted exams where dose is matched to clinical indication); or iterative reconstruction. COMPARISON: No relevant prior studies available. FINDINGS: Brain: Mild volume loss No hemorrhage. Unremarkable white matter. No mass effect. Cerebral ventricles: Grossly stable ventriculomegaly. Paranasal sinuses: Visualized sinuses are unremarkable. No fluid levels. Mastoid air cells: Visualized mastoid air cells are well aerated. Bones/joints: Unremarkable. No acute fracture. Soft tissues: Unremarkable. IMPRESSION: No acute intracranial hemorrhage Grossly stable ventriculomegaly. Correlation for normal pressure hydrocephalus as clinically indicated Dictated and Authenticated by: Bjorn Jean MD. Ordering:DANIELA Solano MD
[2022-01-08 20:42] LABS: Troponin I < 50 ng/L (<or=60)
[2022-01-08] MEDS: Metoprolol 12.5 MG TAB PO (20:52)
[2022-01-08] MEDS: Apixaban 5 MG TAB PO (20:52)
[2022-01-08] MEDS: Insulin Aspart 300 UNITS/3 ML PEN SC (20:52)
[2022-01-08] MEDS: Insulin Glargine 300 UNITS/3 ML PEN 50 UNITS SC (21:35)
[2022-01-08] MEDS: Acetaminophen 325 MG TAB 650 MG PO (22:00)
[2022-01-08] MEDS: Melatonin 3 MG TAB 6 MG PO (22:00)
--- NOTE | 2022-01-09 01:32 | NUR.NOTE ---
Nursing Note: Called to Pt room Pt requesting to go home due to inability to sleep. Pt states that his symptoms for admission have resolved and there is no longer any need for him to be here. Charge nurse made aware MD notified. Pt gathered belongings IV and Tele removed. Pt educated that he was leaving against medical advice and acknowledged understanding. Pt signed AMA paperwork and was escorted to parking lot.
--- NOTE | 2022-01-09 01:35 | NUR.NOTE ---
Patient assigned Nurse informed this Clinical Coordinator that patient verbalize intention of leaving Against medical advice. I then went to speak to the patient, he informed me that the beds are uncomfortable and he just does not want to be here anymore. He was advised that he should return to the ED if he starts feeling unwell again. MD technology applications engineer was informed as well as Nursing Forming Operator
--- NOTE | 2022-01-09 11:34 | PT.INNT ---
PT Notes Visit Reasons: Bradycardia,Pre-syncope Patient left AMA. No skilled services were provided for this admission. Thank you for the opportunity to participate in the care of this patient. Milli Segal PT, DPT, CLT [facility] [place], [place]
--- NOTE | 2022-01-09 14:15 | DSE_ITS ---
Date of service: 01/09/22 Time of Service: 14:15 DS: Diagnosis Discharge Diagnosis (1) Chest pain: Status: Acute (2) Dizziness: Status: Acute (3) Coronary artery disease: Status: Chronic (4) Diabetes mellitus with neuropathy: Status: Chronic (5) Atrial fibrillation: Status: Chronic (6) Acquired hypothyroidism: Status: Chronic (7) Essential hypertension: Status: Chronic (8) MERRITT (obstructive sleep apnea): Status: Chronic (9) Hyperlipidemia: Status: Chronic (10) CKD (chronic kidney disease), stage III: Status: Chronic Discharge Plan Disposition Patient Disposition: AGAINST MEDICAL ADVICE Condition: Stable Discharge Details Reason For Visit: Bradycardia,Pre-syncope Admit Date/Time: 01/08/22 16:22 Admit Provider: Virginia Angulo Attending Provider: Virginia Angulo Primary Care Provider: Gina Bravo Hospital Course Hospital Course: Mr Still is a 71 year old male with PMHx of CAD, Afib on apixaban, bradycardia, IDDM2, CKD, hypertension, hyperlipidemia, MERRITT, chronic dizziness, who was observed on [facility] hospitalist service from 01/08/22 until 01/09/22 when he left AMA having presented with chest pain and dizziness. He ruled out for acute coronary syndrome and did not have any episodes of arrhythmia on telemetry. He was, in fat, bradycardic, to 40s and 50s while awake, and he was on metoprolol 25 mg PO BID. The dose of metoprolol was decreased. Prior to us being able to complete evaluation of his dizziness, the patient left AMA. Home Meds and New Rx's Prescriptions: No Action Myrbetriq 50 mg tablet extended release 24 hr 50 mg PO DAILY Qty: 90 3RF (DME) FreeStyle Bahman 2 Hunter Misc See Rx Instructions .ROUTE .MEDSUPPLY Qty: 1 0RF Rx Instructions: As directed (DME) FreeStyle Bahman 2 Sensor Kit See Rx Instructions .ROUTE .MEDSUPPLY Qty: 2 11RF Rx Instructions: As directed aspirin 81 mg tablet,delayed release (DR/EC) 81 mg PO DAILY Label Comments: 06/02/19-replaces 325mg. daily dose. [facility] [place] discharge note. JOBY Mchugh nitroglycerin 0.4 mg tablet, sublingual 0.4 mg SL Q5M PRN (Reason: chest pain) Qty: 90 2RF Rx Instructions: Take 1 at onset of chest pain, may repeat x2 q5 min if pain continues. (DME) lancets [FreeStyle Lancets] 28 gauge misc See Rx Instructions .ROUTE .MEDSUPPLY Qty: 400 3RF Rx Instructions: to test BS 4X daily for DM/E11.9 and to keep A1c at or under 7.0% insulin aspart U-100 [Novolog Flexpen U-100 Insulin] 100 unit/mL (3 mL) insulin pen See Rx Instructions Sub-Q AC Qty: 90 11RF Rx Instructions: 10-30 units per mealtime correction schedule subcut before meals; (DME) pen needle, diabetic [BD Ultra-Fine Amber Pen Needle] 32 gauge x needle 1 ea Miscellaneous QID Qty: 400 3RF Rx Instructions: E11.65 to administer insulin 4x/day levothyroxine 50 mcg tablet 50 mcg PO DAILY Qty: 90 3RF Rx Instructions: Thyroid amlodipine 10 mg tablet 10 mg PO DAILY Qty: 90 3RF Rx Instructions: Blood pressure & Heart health Eliquis 5 mg tablet 5 mg PO BID Qty: 180 3RF furosemide 40 mg tablet 40 mg PO DAILY Qty: 90 3RF fenofibrate nanocrystallized [Tricor] 145 mg tablet 145 mg PO DAILY Qty: 90 3RF metoprolol tartrate 25 mg tablet 25 mg PO BID Qty: 180 3RF Rx Instructions: Heart insulin glargine [Lantus Solostar U-100 Insulin] 100 unit/mL (3 mL) insulin pen 74 unit Sub-Q QPM Qty: 60 4RF Rx Instructions: Or as directed for dx: E11. rosuvastatin 40 mg tablet See Rx Instructions .ROUTE .COMPLEX Qty: 90 3RF Dose Instruction: TAKE 1 TABLET DAILY Rx Instructions: TAKE 1 TABLET DAILY losartan 25 mg tablet See Rx Instructions .ROUTE .COMPLEX Qty: 90 3RF Dose Instruction: TAKE 1 TABLET AT BEDTIME FOR DIABETES, AND TO PROTECT KIDNEYS Rx Instructions: TAKE 1 TABLET AT BEDTIME FOR DIABETES, AND TO PROTECT KIDNEYS Jardiance 25 mg tablet See Rx Instructions .ROUTE .COMPLEX Qty: 90 3RF Dose Instruction: TAKE 1 TABLET EVERY MORNING Rx Instructions: TAKE 1 TABLET EVERY MORNING melatonin 5 mg capsule 5 - 10 mg PO HS PRN (Reason: sleep difficulty) Qty: 60 1RF Rx Instructions: Sleep difficulty Jardiance 25 mg tablet 25 mg PO QAM Qty: 15 0RF (DME) Blood Glucose Test Strip See Rx Instructions .MEDSUPPLY Qty: 400 3RF Rx Instructions: As directed to check blood glucose four times daily. On insulin. Dispense covered brand. meclizine 25 mg tablet 25 mg PO BID PRN (Reason: dizziness) Qty: 60 0RF Rx Instructions: Take 25mg Qam and additional 25mg dose as needed in PM for vertigo. (1month trial). Discharge Instructions Instructions: Chest Pain (DC), Dizziness (ED) Referrals: Gina Bravo NP [Primary Care Provider] - Activity:: Activity as Tolerated Equipment/Supplies:: No Equipment Needed Diet:: As Tolerated Discharge Orders Discharge Orders: Discharge Order (Routine); Ordered 01/09/22 Ordered By: Virginia Anuglo Discharge Data Discharge Date/Time-TO BE ENTERED AT DEPARTURE: 01/09/22 01:08 Discharge Comment: Patient left dept AxOx3 DS: Summary Time Spent with Patient providing and/or coordinating discharge services: Less than 30 minutes Status at Discharge Functional status at discharge: independent ambulation Overall status at discharge: patient is back to baseline Mental Status: mental status grossly normal Speech and Movement: speech and movement normal Mood: congruent mood Affect: normal affect Exam Psych Mental Status: mental status grossly normal Speech and Movement: speech and movement normal Mood: congruent mood Affect: normal affect DS: Data Vitals/I&O Vitals and I&O: Vital Signs Temperature 37.7 C H 01/08/22 23:49 Temperature Source Tympanic 01/08/22 23:49 Pulse 70 01/08/22 23:49 Pulse Rhythm Regular 01/08/22 21:54 Pulse 53 L 01/08/22 17:02 Respiratory Rate 18 01/08/22 23:49 Respiratory Effort 01/08/22 21:54 Respiratory Depth Normal 01/08/22 21:54 Respiratory Pattern Normal 01/08/22 21:54 Blood Pressure 153/66 H 01/08/22 23:49 Blood Pressure Mean 83 01/08/22 17:01 Blood Pressure Position Sitting 01/08/22 10:55 Pulse Oximetry 91 L 01/08/22 23:49 Oxygen Delivery Method Room Air 01/08/22 23:49 Oxygen Flow Rate 0 01/08/22 23:49 Pain Level 0 01/08/22 23:49 Comment 01/08/22 17:52 Intake & Output 01/08/22 01/09/22 01/09/22 23:59 11:59 23:59 Other: Urine Color Pale Urine Appearance Clear Urine Odor None Voiding Methods Toilet Data Completed and Pending Completed studies during hospitalization [Text1]: CT head: 1. No acute intracranial process. 2. Mild prominence of the ventricular size.? If there is concern for NPH, follow-up as clinically indicated. CXR: No acute pulmonary findings. Labs on day of discharge: Labs from last 24 hours 01/09/22 01/09/22 01/08/22 05:35 05:35 20:17 WBC Cancelled RBC Cancelled Hgb Cancelled Hct Cancelled MCV Cancelled MCH Cancelled MCHC Cancelled RDW Cancelled Plt Count Cancelled MPV Cancelled Immature Gran % Cancelled Neutrophils % Cancelled Band Neutrophils % Cancelled Lymphocytes % Cancelled Atypical Lymphs % Cancelled Monocytes % Cancelled Eosinophils % Cancelled Basophils % Cancelled Metamyelocytes % Cancelled Myelocytes % Cancelled Promyelocytes % Cancelled Other Cells % Cancelled Nucleated RBC % Cancelled Absolute Neutrophils Cancelled Absolute Lymphocytes Cancelled Absolute Monocytes Cancelled Absolute Eosinophils Cancelled Absolute Basophils Cancelled RBC Morphology Cancelled Polychromasia Cancelled Hypochromasia Cancelled Poikilocytosis Cancelled Basophilic Stippling Cancelled Anisocytosis Cancelled Microcytosis Cancelled Macrocytosis Cancelled Spherocytes Cancelled Tear Drop Cells Cancelled Ovalocytes Cancelled Stomatocytes Cancelled Kendrick-Harlan Bodies Cancelled [place] Cells/Echinocytes Cancelled Acanthocytes (Spur) Cancelled Schistocytes Cancelled PT INR Sodium Cancelled Potassium Cancelled Chloride Cancelled Carbon Dioxide Cancelled Anion Gap Cancelled BUN Cancelled Creatinine Cancelled Est GFR (CKD-EPI 2020) Cancelled Glucose Cancelled Calcium Cancelled Magnesium Total Bilirubin AST ALT Alkaline Phosphatase Troponin I Cancelled < 50 Total Protein Albumin TSH SARS-CoV-2 (PCR) 01/08/22 01/08/22 01/08/22 15:19 14:04 14:04 WBC 12.30 H RBC 3.53 L Hgb 11.3 L Hct 35.8 L MCV 101 H MCH 32.0 MCHC 31.6 L RDW 14.6 H Plt Count 289 MPV 10.5 Immature Gran % 0.3 Neutrophils % 80.3 Band Neutrophils % Lymphocytes % 10.9 Atypical Lymphs % Monocytes % 7.2 Eosinophils % 1.0 Basophils % 0.3 Metamyelocytes % Myelocytes % Promyelocytes % Other Cells % Nucleated RBC % 0.0 Absolute Neutrophils 9.88 H Absolute Lymphocytes 1.34 Absolute Monocytes 0.89 H Absolute Eosinophils 0.12 Absolute Basophils 0.04 RBC Morphology Polychromasia Hypochromasia Poikilocytosis Basophilic Stippling Anisocytosis Microcytosis Macrocytosis Spherocytes Tear Drop Cells Ovalocytes Stomatocytes Kendrick-Harlan Bodies Lindsay Cells/Echinocytes Acanthocytes (Spur) Schistocytes PT INR Sodium Potassium Chloride Carbon Dioxide Anion Gap BUN Creatinine Est GFR (CKD-EPI 2020) Glucose Calcium Magnesium Total Bilirubin AST ALT Alkaline Phosphatase Troponin I Cancelled Total Protein Albumin TSH 2.61 SARS-CoV-2 (PCR) 01/08/22 01/08/22 01/08/22 14:04 14:04 13:07 WBC RBC Hgb Hct MCV MCH MCHC RDW Plt Count MPV Immature Gran % Neutrophils % Band Neutrophils % Lymphocytes % Atypical Lymphs % Monocytes % Eosinophils % Basophils % Metamyelocytes % Myelocytes % Promyelocytes % Other Cells % Nucleated RBC % Absolute Neutrophils Absolute Lymphocytes Absolute Monocytes Absolute Eosinophils Absolute Basophils RBC Morphology Polychromasia Hypochromasia Poikilocytosis Basophilic Stippling Anisocytosis Microcytosis Macrocytosis Spherocytes Tear Drop Cells Ovalocytes Stomatocytes Kendrick-Harlan Bodies Lindsay Cells/Echinocytes Acanthocytes (Spur) Schistocytes PT 10.0 INR 1.0 Sodium 141 Potassium 5.3 H Chloride 108 H Carbon Dioxide 28.8 Anion Gap 4.2 BUN 36 H Creatinine 1.7 H Est GFR (CKD-EPI 2020) 43.10 Glucose 127 H Calcium 9.5 Magnesium 2.0 Total Bilirubin 0.3 AST 21 ALT 22 Alkaline Phosphatase 64 Troponin I < 50 Total Protein 7.3 Albumin 3.8 TSH SARS-CoV-2 (PCR) Negative PFSH All Active Problems (Updated 01/09/22 @ 14:15 by Virginia Angulo MD) Discharge planning issues (Acute) Chest pain (Acute) Pre-syncope (Acute) Ataxia (Acute) Unsteady gait (Acute) Keeps losing balance (Acute) Anemia (Chronic) Slow heart rate (Acute) Dizziness (Acute) Diabetes mellitus with neuropathy (Chronic) Reduced monofilament 06/24/2019 Goal A1C 7.5% or less Overactive bladder (Acute) Myrbetriq started [ ] ... Oxybutynin, discontinued 06/24/19 in favor of optimizing DMT2 management Uncontrolled diabetes mellitus (Acute) Goal </=7.5% Atrial fibrillation (Chronic) Apixaban 06/22/2019 CKD (chronic kidney disease), stage III (Chronic) Coronary artery disease (Chronic) 3-vessel (LAD, LCX, RCA) Cardiomegaly (Acute) CXR; ECHO 05/2019 [facility] [place]--LVEF 53%, +LVH (mild), no significant valvular disease; stable compared with 2017 study Current use of insulin (Chronic) MERRITT (obstructive sleep apnea) (Chronic) Bi-PAP 07/23/19 Arthritis of both knees (Chronic) Acquired hypothyroidism (Chronic 10/28/16) High TSH, but WNL T4 (2021) .. 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 Depressive disorder marital issues Diabetes mellitus type 2 in obese Essential hypertension H/O renal calculi History of nicotine dependence Hypomagnesemia (06/22/14) Only 1.0 in the ER today. Hypothyroidism Kidney stone calcium oxylate Knee contusion Left ankle sprain Low back pain L4-[address] Maisonneuve fracture of left fibula (05/07/16) Nicotine dependence Cessated Pipe smoker SARS-CoV-2 positive (~04/2021) Tendinitis of right shoulder Umbilical hernia Recurrent x 2, repaired x 3. Surgical History Appendectomy Colonoscopy - IV Sedation Extraction of cataract 11/23/14; DR. GOINS; RIGHT EYE 12/07/14; DR. GOINS; LEFT EYE Fracture, Open Treatment ORIF-LEFT SYNDESMOSIS WITH TWO SCREWS History of cataract removal with insertion of prosthetic lens (11/23/14) History of umbilical hernia repair Repair of umbilical hernia S/P cardiac catheterization (05/31/19) Status post appendectomy Status post coronary artery bypass with autogenous graft, 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) 2017 Status post coronary artery stent placement (09/26/16) One vessel for unstable angina Family History Father Diabetes Dementia Neoplasm PANCREATIC Social History Smoking/Tobacco Use Status: Former Tobacco Use Quit Date: 01/02/17 Pack-years: 40 Tobacco: How many years used: 40 Smoking risk assessment performed?: Yes Alcohol Intake: current Alcohol Intake frequency: a few times a week Alcohol type: beer and hard liquor Counseling given: Yes Counseling provided: reduce to 2 or less/day Details: 3-5 nights/wk drinks shot of hard liquor and multiple beers (3) Drug use: Never Substance use type: does not use Adopted: No Caregiver/Support person: No Foster care: No Household members: none and other Details: Cats Number of Children: 3 number of grandchildren: 4 Communication Needs: None Do you need help understanding health information?: Rarely Pets and animals: Yes Pets and animals: cat(s) Do you think of yourself as: straight/heterosexual Current gender identity: male What is your relationship status?: Panel score (0-1 are the most socially isolated patients): 0 What type of physical activity do you participate in: none Seatbelt use: always Drive intox 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 roll off driver: No Working smoke detector in home: No Fire extinguisher in home: No Carbon monox detector in home: No Do you feel safe at home: Yes Do you feel safe in your relationship?: Yes Additional Social history: Retired from 44y in [employer].
== END 2022-01-09 01:08 | disposition left against medical advice (07) ==
LOC: ER 16:47 → MS 17:29
PROVIDERS: Nurse Practitioner Acute Care; Student in an Organized Health Care Education/Training Program; Admitting Provider Internal Medicine; Emergency Provider Emergency Medicine; PCP Nurse Practitioner Adult Health; Visit Provider Internal Medicine
DX: R42 Dizziness and giddiness; I25.110 Atherosclerotic heart disease of native coronary artery with unstable angina pectoris; I45.2 Bifascicular block; I48.20 Chronic atrial fibrillation, unspecified; R00.1 Bradycardia, unspecified; N18.30 Chronic kidney disease, stage 3 unspecified; E11.22 Type 2 diabetes mellitus with diabetic chronic kidney disease; I12.9 Hypertensive chronic kidney disease with stage 1 through stage 4 chronic kidney disease, or unspecified chronic kidney disease; I44.0 Atrioventricular block, first degree; E66.9 Obesity, unspecified; R26.81 Unsteadiness on feet; D64.9 Anemia, unspecified; E11.40 Type 2 diabetes mellitus with diabetic neuropathy, unspecified; Z79.4 Long term (current) use of insulin; Z20.822 Contact with and (suspected) exposure to COVID-19; Z79.899 Other long term (current) drug therapy; Z79.01 Long term (current) use of anticoagulants; Z68.41 Body mass index [BMI] 40.0-44.9, adult; Z95.1 Presence of aortocoronary bypass graft; Z79.82 Long term (current) use of aspirin; N32.81 Overactive bladder; E11.65 Type 2 diabetes mellitus with hyperglycemia; G47.33 Obstructive sleep apnea (adult) (pediatric); I51.7 Cardiomegaly; M17.0 Bilateral primary osteoarthritis of knee; E03.9 Hypothyroidism, unspecified; E78.5 Hyperlipidemia, unspecified; H90.3 Sensorineural hearing loss, bilateral; F32.A Depression, unspecified; E83.42 Hypomagnesemia; Z86.16 Personal history of COVID-19
CPT/HCPCS: 36415; 80048; 80053; 87635; 93005; 99284; 99285; 70450; 71045; 83735; 84443; 84484; 85025; 85610; 93010; 99220; J3490

== ENCOUNTER → 2022-01-13 01:26 | Outpatient (CLI) | payer MEDICARE, OTHER, SELFPAY ==
--- NOTE | 2022-01-13 08:06 | DI.CT_ITS ---
Exam(s) CT HEAD W EXAM: CT HEAD W CLINICAL HISTORY: evaluate for mass; recent onset ataxia,DIZZINESS, LOSS OF BALANCE. TECHNIQUE: Imaging Protocol: Only contrast infused CT scans of the brain were performed. Does not a ppear that a noninfused study was performed. The recent noninfused study of 01/08/2022 was reviewed. IV Contrast Dose =75 cc Axial computed tomography images with coronal and sagittal reformatted images were created and review ed COMPARISON: Prior CT HEAD WO from 01/08/2022 FINDINGS: There are no skull fractures nor fluid in the visualized paranasal sinuses. There is no evidence of intracranial hemorrhage, mass effect, or shift of midline structures. There are no extra-axial fluid collections. Ventricular size is unchanged. Size of the lateral ventricles is again noted be slightly larger than expected when compared to the size of the overlying cortical sulci. Correlation any clinical signs of NPH recommended There are no ring enhancing lesions in the brain and there is no abnormal meningeal enhancement, foca l or diffuse. No evidence of vascular malformation. There is calcification in the intracavernous and supraclinoid aspects of both internal carotid arteri es. There are no obvious aneurysms. IMPRESSION: No ring enhancing lesions in the brain nor abnormal meningeal enhancement, focal nor diffuse.No obvio us aneurysms. . Size of the lateral ventricles is somewhat at a proportion when compared the size of the overlying co rtical sulci. If there is clinical triad of dementia, gait disturbance, and incontinence than normal pressure hydrocephalus would be a consideration here. RADIATION DOSE DELIVERED: 981.41mGy.cm Total DLP DATA REPOSITORY: All CT scans at this facility are submitted to the National Radiology Data Registry (NRDR) Dose Index Registry (DIR) with the [employer] (ACR). RADIATION OPTIMIZATION: All CT scans at this facility use at least one of these dose optimization te chniques: automated exposure control; mA and/or kV adjustment per patient size (includes targeted exa ms where dose is matched to clinical indication); or iterative reconstruction.
[2022-01-13] MEDS: Omnipaque 350 MG/ML 100 ML BTL IJ (11:32)
[2022-01-13] MEDS: Normal Saline Flush 10 ML SYR IVP (11:34)
== END ==
PROVIDERS: PCP Student in an Organized Health Care Education/Training Program; Visit Provider Student in an Organized Health Care Education/Training Program
DX: R42 Dizziness and giddiness (principal); R26.89 Other abnormalities of gait and mobility
CPT/HCPCS: 70460; J3490

== ENCOUNTER 2022-02-04 15:23 | Emergency (ER) | payer MEDICARE, OTHER, SELFPAY ==
[2022-02-04 15:29] VITALS: BP 109/50; PULSE 54; RESP 18; TEMP 36.8; O2SAT 96
--- NOTE | 2022-02-04 15:45 | DI.US_ITS ---
Exam(s) US LOWER EXTREMITY VENOUS RT EXAM: US LOWER EXTREMITY VENOUS RT CLINICAL HISTORY: right leg swelling TECHNIQUE: Grayscale, color, and doppler imaging of the deep venous system of the right lower extrem ity was performed. COMPARISON: No exams were available for comparison FINDINGS: There is no evidence of intraluminal thrombus and there is normal compression and augmentation demons trated within the common femoral vein, femoral vein, and popliteal vein. In the ipsilateral calf the interrogated veins also exhibit normal compression/ augmentation properti es. The ipsilateral saphenofemoral junction is patent. De Los Santos cyst in the medial popliteal fossa noted measuring 4.5 x 0.7 x 3.1 cm. IMPRESSION: 1. No evidence of DVT in the right lower extremity. De [place] Santos cyst noted in the medial popliteal fossa with measurements as above. DATA REPOSITORY:
--- NOTE | 2022-02-04 15:49 | ED.GENADUL_ITS ---
Discharge Plan Disposition Patient Disposition: HOME Condition: Stable Discharge Details Clinical Impression: Right leg swelling Primary Care Provider: Clare Medley ED Provider: Gaurav Banks Home Meds and New Rx's Prescriptions: Continued Myrbetriq 50 mg tablet extended release 24 hr 50 mg PO DAILY Qty: 90 3RF (DME) FreeStyle Bahman 2 [place] Misc See Rx Instructions .ROUTE .MEDSUPPLY Qty: 1 0RF Rx Instructions: As directed (DME) FreeStyle Bahman 2 Sensor Kit See Rx Instructions .ROUTE .MEDSUPPLY Qty: 2 11RF Rx Instructions: As directed aspirin 81 mg tablet,delayed release (DR/EC) 81 mg PO DAILY Label Comments: 06/02/19-replaces 325mg. daily dose. [facility] discharge note. JOBY Mchugh (DME) lancets [FreeStyle Lancets] 28 gauge misc See Rx Instructions .ROUTE .MEDSUPPLY Qty: 400 3RF Rx Instructions: to test BS 4X daily for DM/E11.9 and to keep A1c at or under 7.0% insulin aspart U-100 [Novolog Flexpen U-100 Insulin] 100 unit/mL (3 mL) insulin pen See Rx Instructions Sub-Q AC Qty: 90 11RF Rx Instructions: 10-30 units per mealtime correction schedule subcut before meals; (DME) pen needle, diabetic [BD Ultra-Fine Amber Pen Needle] 32 gauge x 5/32 needle 1 ea Miscellaneous QID Qty: 400 3RF Rx Instructions: E11.65 to administer insulin 4x/day levothyroxine 50 mcg tablet 50 mcg PO DAILY Qty: 90 3RF Rx Instructions: Thyroid amlodipine 10 mg tablet 10 mg PO DAILY Qty: 90 3RF Rx Instructions: Blood pressure & Heart health Eliquis 5 mg tablet 5 mg PO BID Qty: 180 3RF furosemide 40 mg tablet 40 mg PO DAILY Qty: 90 3RF fenofibrate nanocrystallized [Tricor] 145 mg tablet 145 mg PO DAILY Qty: 90 3RF metoprolol tartrate 25 mg tablet 25 mg PO BID Qty: 180 3RF Rx Instructions: Heart insulin glargine [Lantus Solostar U-100 Insulin] 100 unit/mL (3 mL) insulin pen 74 unit Sub-Q QPM Qty: 60 4RF Rx Instructions: Or as directed for dx: E11.65 rosuvastatin 40 mg tablet See Rx Instructions .ROUTE .COMPLEX Qty: 90 3RF Dose Instruction: TAKE 1 TABLET DAILY Rx Instructions: TAKE 1 TABLET DAILY losartan 25 mg tablet See Rx Instructions .ROUTE .COMPLEX Qty: 90 3RF Dose Instruction: TAKE 1 TABLET AT BEDTIME FOR DIABETES, AND TO PROTECT KIDNEYS Rx Instructions: TAKE 1 TABLET AT BEDTIME FOR DIABETES, AND TO PROTECT KIDNEYS Jardiance 25 mg tablet See Rx Instructions .ROUTE .COMPLEX Qty: 90 3RF Dose Instruction: TAKE 1 TABLET EVERY MORNING Rx Instructions: TAKE 1 TABLET EVERY MORNING melatonin 5 mg capsule 5 - 10 mg PO HS PRN (Reason: sleep difficulty) Qty: 60 1RF Rx Instructions: Sleep difficulty Jardiance 25 mg tablet 25 mg PO QAM Qty: 15 0RF (DME) Blood Glucose Test Strip See Rx Instructions .MEDSUPPLY Qty: 400 3RF Rx Instructions: As directed to check blood glucose four times daily. On insulin. Dispense covered brand. meclizine 25 mg tablet 25 mg PO BID PRN (Reason: dizziness) Qty: 60 0RF Rx Instructions: Take 25mg Qam and additional 25mg dose as needed in PM for vertigo. (1month trial). lorazepam 2 mg tablet 2 mg PO ONCE Qty: 1 0RF Rx Instructions: Take one hour prior to MRI start nitroglycerin 0.4 mg tablet, sublingual 0.4 mg SL Q5M PRN (Reason: chest pain) Qty: 90 2RF Rx Instructions: Take 1 at onset of chest pain, may repeat x2 q5 min if pain continues. Discharge Instructions Instructions: Leg Edema (ED) Additional Instructions: continue the amoxicillin as prescribed by your dentist if your leg is not improving in a week follow up with your primary care provider if you feel more ill, have severe pain or difficulty breathing return to the emergency department Medical Decision Making 71 yo male with hx of dm, ckd, afib, who comes in with 3 days of right leg swelling. He is not sure what happened but he noticed an abrasion on the anterior mid tibia and his leg has progressively become more swollen. He denies fevers or severe pain and feels well otherwise. He has a 1cm abrasion on the mid anterior tibia without significant swelling erythema, has clear drainage from the wound, no fluctuance or crepitus or severe tenderness. He has full rom of the leg and intact sensation. Seems most likely lymphedema and less likely cellulitis, will check cbc, cmp, and dvt u/s and reassess. cbc and cmp show no significant changes from baseline, ckd stable. u/s without dvt, has a de los santos's cyst but is not tender in this area. He did just start amoxicillin from his dentist he states because he cancellled a procedure and wanted to prevent the tooth from being infected. His leg does not seem infected at this time. Will have him continue the amoxicillin and advised to f/u with pcp and return precautions given Differential Diagnosis Differential Diagnosis: dvt, cellulitis, lymphedema Imaging Data Radiologic Study: Attestation: I personally reviewed and interpreted this imaging study as follows: Imaging: Ultrasound Radiologist's impression: IMPRESSION: 1.? No evidence of DVT in the right lower extremity. De Los Santos cyst noted in the medial popliteal fossa with measurements as above. Lab Data Lab results reviewed: Yes I reviewed the patient's lab results. HPI General Mode of arrival: ambulatory . Date/Time Provider Initiated Documentation: 02/04/22 15:26 . Limitations to Documentation: no limitations . Information obtained by: patient . History of Present Illness 71 year old M presents to the emergency department with the chief complaint of right leg swelling, described as severe, Patient started experiencing this day(s) (3) and it has been constant. No relieving factors improve symptom(s), No exacerbating factors reported . Patient notes no other symptoms.. Patient did receive the following treatments prior to arrival, none Related Data Home Medications Medication Instructions Recorded Confirmed aspirin 81 mg tablet,delayed 81 mg PO DAILY 06/02/19 02/04/22 release lancets 28 gauge (FreeStyle #400 ea 02/11/21 02/04/22 Lancets) mirabegron 50 mg tablet,extended 50 mg PO DAILY #90 tabs 03/19/21 02/04/22 release 24 hr (Myrbetriq) insulin aspart U-100 100 unit/mL See Rx Instructions subcut AC #90 03/21/21 02/04/22 (3 mL) subcutaneous pen (Novolog mL Flexpen U-100 Insulin aspart) pen needle, diabetic 32 gauge x #400 ea 03/25/21 02/04/22 (BD Ultra-Fine Amber Pen Needle) amlodipine 10 mg tablet 10 mg PO DAILY #90 tabs 05/24/21 02/04/22 apixaban 5 mg tablet (Eliquis) 5 mg PO BID #180 tabs 05/24/21 02/04/22 fenofibrate nanocrystallized 145 145 mg PO DAILY #90 tab-caps 05/24/21 02/04/22 mg tablet (Tricor) furosemide 40 mg tablet 40 mg PO DAILY #90 tabs 05/24/21 02/04/22 levothyroxine 50 mcg tablet 50 mcg PO DAILY #90 tab-caps 05/24/21 02/04/22 metoprolol tartrate 25 mg tablet 25 mg PO BID #180 tab-caps 05/24/21 02/04/22 insulin glargine 100 unit/mL (3 74 unit (0.74 mL) subcut QPM #60 mL 08/14/21 02/04/22 mL) subcutaneous pen (Lantus Solostar U-100 Insulin) losartan 25 mg tablet See Rx Instructions .Route 09/24/21 02/04/22 .COMPLEX #90 tabs rosuvastatin 40 mg tablet See Rx Instructions .Route 09/24/21 02/04/22 .COMPLEX #90 tabs empagliflozin 25 mg tablet See Rx Instructions .Route 10/15/21 02/04/22 (Jardiance) .COMPLEX #90 tabs flash glucose scanning reader #1 ea 11/17/21 02/04/22 (FreeStyle Bahman 2 [place]) flash glucose sensor (FreeStyle #2 ea 11/17/21 02/04/22 Bahman 2 Sensor kit) melatonin 5 mg capsule 5 - 10 mg PO HS PRN sleep 11/17/21 02/04/22 difficulty #60 caps empagliflozin 25 mg tablet 25 mg PO QAM #15 tabs 11/29/21 02/04/22 (Jardiance) blood sugar diagnostic (Blood #400 ea 12/13/21 02/04/22 Glucose Test strips) meclizine 25 mg tablet 25 mg PO BID PRN dizziness #60 tabs 12/27/21 02/04/22 lorazepam 2 mg tablet 2 mg PO ONCE #1 tab 01/10/22 02/04/22 nitroglycerin 0.4 mg sublingual 0.4 mg sublingual Q5M PRN chest 09/09/22 10/04/22 tablet pain #90 tabs Previous Rx's Medication Instructions Recorded lancets 28 gauge (FreeStyle #400 ea 02/11/21 Lancets) mirabegron 50 mg tablet,extended 50 mg PO DAILY #90 tabs 03/19/21 release 24 hr (Myrbetriq) insulin aspart U-100 100 unit/mL See Rx Instructions subcut AC #90 03/21/21 (3 mL) subcutaneous pen (Novolog mL Flexpen U-100 Insulin aspart) pen needle, diabetic 32 gauge x #400 ea 03/25/21 (BD Ultra-Fine Amber Pen Needle) amlodipine 10 mg tablet 10 mg PO DAILY #90 tabs 05/24/21 apixaban 5 mg tablet (Eliquis) 5 mg PO BID #180 tabs 05/24/21 fenofibrate nanocrystallized 145 145 mg PO DAILY #90 tab-caps 05/24/21 mg tablet (Tricor) furosemide 40 mg tablet 40 mg PO DAILY #90 tabs 05/24/21 levothyroxine 50 mcg tablet 50 mcg PO DAILY #90 tab-caps 05/24/21 metoprolol tartrate 25 mg tablet 25 mg PO BID #180 tab-caps 05/24/21 insulin glargine 100 unit/mL (3 74 unit (0.74 mL) subcut QPM #60 mL 08/14/21 mL) subcutaneous pen (Lantus Solostar U-100 Insulin) losartan 25 mg tablet See Rx Instructions .Route 09/24/21 .COMPLEX #90 tabs rosuvastatin 40 mg tablet See Rx Instructions .Route 09/24/21 .COMPLEX #90 tabs empagliflozin 25 mg tablet See Rx Instructions .Route 10/15/21 (Jardiance) .COMPLEX #90 tabs flash glucose scanning reader #1 ea 11/17/21 (FreeStyle Bahman 2 [place]) flash glucose sensor (FreeStyle #2 ea 11/17/21 Bahman 2 Sensor kit) melatonin 5 mg capsule 5 - 10 mg PO HS PRN sleep 11/17/21 difficulty #60 caps empagliflozin 25 mg tablet 25 mg PO QAM #15 tabs 11/29/21 (Jardiance) blood sugar diagnostic (Blood #400 ea 12/13/21 Glucose Test strips) meclizine 25 mg tablet 25 mg PO BID PRN dizziness #60 tabs 12/27/21 lorazepam 2 mg tablet 2 mg PO ONCE #1 tab 01/10/22 nitroglycerin 0.4 mg sublingual 0.4 mg sublingual Q5M PRN chest 01/10/22 tablet pain #90 tabs Allergies Allergy/AdvReac Type Severity Reaction Status Date / Time No Known Allergies Allergy Verified 02/04/22 15:32 General Stated Complaint: Cellulitis CHRISTIANE: 4 Review of Systems All systems reviewed & are unremarkable except as noted in HPI and below Constitutional Constitutional: Denies chills, Denies fever(s) and Denies weakness Cardiovascular Cardiovascular: Denies chest pain and Denies dyspnea Respiratory Respiratory: Denies cough and Denies dyspnea Gastrointestinal Gastrointestinal: Denies abdominal pain, Denies nausea and Denies vomiting Neurologic Neurologic: Denies weakness Endocrine Endocrine: Denies cold intolerance PFSH All Active Problems (Updated 02/04/22 @ 16:53 by Gaurav Banks MD) Right leg swelling (Acute) Chest pain (Acute) Pre-syncope (Acute) Ataxia (Acute) Unsteady gait (Acute) Keeps losing balance (Acute) Anemia (Chronic) Slow heart rate (Acute) Dizziness (Acute) Diabetes mellitus with neuropathy (Chronic) Reduced monofilament 06/24/2019 Goal A1C 7.5% or less Overactive bladder (Acute) Myrbetriq started [ ] ... Oxybutynin, discontinued 06/24/19 in favor of optimizing DMT2 management Uncontrolled diabetes mellitus (Acute) Goal </=7.5% Atrial fibrillation (Chronic) Apixaban 06/22/2019 CKD (chronic kidney disease), stage III (Chronic) Coronary artery disease (Chronic) 3-vessel (LAD, LCX, RCA) Cardiomegaly (Acute) CXR; ECHO 05/2019 [facility]--LVEF 53%, +LVH (mild), no significant valvular disease; stable compared with 2017 study Current use of insulin (Chronic) MERRITT (obstructive sleep apnea) (Chronic) Bi-PAP 07/23/19 Arthritis of both knees (Chronic) Acquired hypothyroidism (Chronic 10/28/16) High TSH, but WNL T4 (2021) .. 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 Depressive disorder marital issues Diabetes mellitus type 2 in obese Essential hypertension H/O renal calculi History of nicotine dependence Hypomagnesemia (06/22/14) Only 1.0 in the ER today. Hypothyroidism Kidney stone calcium oxylate Knee contusion Left ankle sprain Low back pain L4-[address] [place]ison[place]uve fracture of left fibula (05/07/16) Nicotine dependence Cessated Pipe smoker SARS-CoV-2 positive (~04/2021) Tendinitis of right shoulder Umbilical hernia Recurrent x 2, repaired x 3. Surgical History Appendectomy Colonoscopy - IV Sedation Extraction of cataract 11/23/14; DR. GOINS; RIGHT EYE 12/07/14; DR. GOINS; LEFT EYE Fracture, Open Treatment ORIF-LEFT SYNDESMOSIS WITH TWO SCREWS History of cataract removal with insertion of prosthetic lens (11/23/14) History of umbilical hernia repair Repair of umbilical hernia S/P cardiac catheterization (05/31/19) Status post appendectomy Status post coronary artery bypass with autogenous graft, 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) 2017 Status post coronary artery stent placement (09/26/16) One vessel for unstable angina Family History Father Diabetes Dementia Neoplasm PANCREATIC Social History Smoking/Tobacco Use Status: Former Tobacco Use Quit Date: 01/02/17 Pack-years: 40 Tobacco: How many years used: 40 Smoking risk assessment performed?: Yes Alcohol Intake: current Alcohol Intake frequency: a few times a week Alcohol type: beer and hard liquor Counseling given: Yes Counseling provided: reduce to 2 or less/day Details: 3-5 nights/wk drinks shot of hard liquor and multiple beers (3) Drug use: Never Substance use type: does not use Adopted: No Caregiver/Support person: No Foster care: No Household members: none and other Details: Cats Number of Children: 3 number of grandchildren: 4 Communication Needs: None Do you need help understanding health information?: Rarely Pets and animals: Yes Pets and animals: cat(s) Do you think of yourself as: straight/heterosexual Current gender identity: male What is your relationship status?: Panel score (0-1 are the most socially isolated patients): 0 What type of physical activity do you participate in: none Seatbelt use: always Drive intox 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 Exam Const General: no acute distress Orientation: alert HENMT Head: normal to inspection Ears: external ears normal General nose exam: external nose normal Mouth: moist mucous membranes Eyes General: appearance normal, both eyes and all related structures Neck Neck: normal visual inspection Resp Effort & Inspection: normal respiratory effort and able to speak in complete sentences Cardio Rate: regular rate Skin General skin exam: no rashes or lesions noted Neuro General: patient alert and patient oriented x3 Extrem General: full ROM and capillary refill normal Psych Mental Status: mental status grossly normal Course Vital Signs Vital signs: Vital Signs Temperature 36.8 C 02/04/22 15:29 Pulse 54 L 02/04/22 15:29 Respiratory Rate 18 02/04/22 15:29 Blood Pressure 109/50 L 02/04/22 15:29 Pulse Oximetry 96 02/04/22 15:29 Temperature 36.8 C 02/04/22 15:29 Temperature Source Oral 02/04/22 15:29 Pulse 54 L 02/04/22 15:29 Respiratory Rate 18 02/04/22 15:29 Respiratory Effort Non-Labored 02/04/22 15:33 Blood Pressure 109/50 L 02/04/22 15:29 Blood Pressure Position Sitting 02/04/22 15:29 Pulse Oximetry 96 02/04/22 15:29 Oxygen Delivery Method Room Air 10/04/22 15:29 Oxygen Flow Rate 0 02/04/22 15:29 Pain Level 0 02/04/22 15:29 PAWSS Have you Been Recently Intoxicated or Drunk Within the Last 30 days?: No Have you Ever Experienced Previous Episodes of Alcohol Withdrawal?: No Have you ever Experienced Withdrawal Seizures?: No Have you ever Experienced Delirium Tremens(DT)s?: No Have you ever undergone Alcohol Rehabilitation Treatment (i.e, inpt ot outpatient treatment programs)?: No Have you ever Experienced Blackouts?: No Have you ever Combined Alcohol with other Downers within the last 90 days?: No Have you ever Combined Alcohol with any other Substance of Abuse during the last 90 days?: No Positive Blood Alcohol level on Presentation? [PCS.BAL]: No Evidence of Increased Autonomic Activity (i.e. HR>120, tremor, sweating, agitation, nausea)?: No Result: 0
[2022-02-04 16:06] LABS: Abs Immature Grans 0.05 10^3/uL (0.0-0.06); Absolute Basophil Count 0.03 10^3/uL (0.0-0.2); Absolute Eosinophil Count 0.16 10^3/uL (0.0-0.7); Absolute Lymphocyte Count 1.62 10^3/uL (1.2-3.4); Absolute Monocyte Count 0.81 10^3/uL (0.1-0.8); Absolute Neutrophil Count 7.01 10^3/uL (1.2-6.7); Basophils % 0.3; Eosinophils % 1.7; HCT 36.4 % (40.0-50.0); HGB 11.8 g/dL (13.5-17.5); Immature Grans % 0.5; Lymphocytes % 16.7; MCH 32.2 pg (27.0-33.0); MCHC 32.4 % (32.0-36.0); MCV 99 fL (80-95); MPV 10.7 fL (8.0-11.0); Monocytes % 8.4; Neutrophils % 72.4; Platelet Count 288 10^3/uL (130-400); RBC 3.67 10^6/uL (4.36-5.78); RDW 14.3 % (11.8-14.1); RDW-SD 51.9 fL; WBC 9.68 10^3/uL (4.4-10.8)
[2022-02-04 16:22] LABS: ALT 26 U/L (16-63); AST 22 U/L (15-37); Alkaline Phosphatase 64 U/L (46-116); Anion Gap 8.8 mmol/L (3-11); BUN 37 mg/dL (7-18); Bilirubin, Total 0.4 mg/dL (0.2-1.0); CO2 26.2 mmol/L (21.0-32.0); CREATININE 1.6 mg/dL (0.70-1.30); Calcium 9.1 mg/dL (8.5-10.1); Chloride 106 mmol/L (98-107); Estimated GFR 46.35 (mL/min/1.73m2); Glucose 169 mg/dL (74-106); Potassium 4.9 mmol/L (3.5-5.1); Sodium 141 mmol/L (136-145); Total Protein 7.3 g/dL (6.4-8.2)
== END 2022-02-04 17:06 | disposition home or self-care (01) ==
PROVIDERS: Emergency Provider Emergency Medicine; PCP Student in an Organized Health Care Education/Training Program
DX: M79.89 Other specified soft tissue disorders (principal); S80.811A Abrasion, right lower leg, initial encounter; M71.21 Synovial cyst of popliteal space [Baker], right knee; E11.22 Type 2 diabetes mellitus with diabetic chronic kidney disease; N18.30 Chronic kidney disease, stage 3 unspecified; Z79.4 Long term (current) use of insulin; Z87.891 Personal history of nicotine dependence; X58.XXXA Exposure to other specified factors, initial encounter
CPT/HCPCS: 36415; 80053; 99284; 85025; 93971; 99282

== ENCOUNTER 2022-02-20 14:08 | Outpatient (CLI) | payer MEDICARE, OTHER, SELFPAY | END 2022-02-20 14:09 | disposition home or self-care (01) | LOC: CARDOPNVT 14:08 | PROVIDERS: PCP Student in an Organized Health Care Education/Training Program; Visit Provider Student in an Organized Health Care Education/Training Program | DX: I48.91 Unspecified atrial fibrillation (principal); R00.1 Bradycardia, unspecified; R27.0 Ataxia, unspecified; R55 Syncope and collapse; Z86.79 Personal history of other diseases of the circulatory system | CPT/HCPCS: 93246 ==

== ENCOUNTER 2022-03-20 13:36 | Outpatient (CLI) | payer MEDICARE, OTHER, SELFPAY ==
--- NOTE | 2022-03-20 13:45 | W.CARDEVENT ---
Date of service: 03/20/22 Time of Service: 13:45 Cardiac Event Recorder Referring Provider:: Clare Medley Indications:: Syncope Cardiac Event Note: This is a cardiac event recorder ordered for syncope. Patient was monitored for 14 days Predominant rhythm was atrial fibrillation. Average heart rate was 65. Minimum was 33, maximum 126 There were rare ventricular ectopic beats There was one 3.6-second pause which occurred during sleep Patient's symptoms were reported which corresponded to atrial fibrillation in the 60s
== END 2022-03-20 13:37 | disposition home or self-care (01) ==
LOC: CARDOPNVT 13:36
PROVIDERS: PCP Student in an Organized Health Care Education/Training Program; Visit Provider Internal Medicine Cardiovascular Disease
DX: R55 Syncope and collapse (principal); I49.3 Ventricular premature depolarization; I48.91 Unspecified atrial fibrillation
CPT/HCPCS: 93248

== ENCOUNTER 2022-04-24 02:21 | Outpatient (CLI) | payer MEDICARE, OTHER, SELFPAY ==
[2022-04-24 12:36] LABS: Abs Immature Grans 0.03 10^3/uL (0.0-0.06); Absolute Basophil Count 0.06 10^3/uL (0.0-0.2); Absolute Eosinophil Count 0.12 10^3/uL (0.0-0.7); Absolute Lymphocyte Count 1.85 10^3/uL (1.2-3.4); Absolute Neutrophil Count 5.89 10^3/uL (1.2-6.7); Basophils % 0.7; Eosinophils % 1.4; HCT 43.2 % (40.0-50.0); HGB 14.1 g/dL (13.5-17.5); Immature Grans % 0.3; Lymphocytes % 21.4; MCH 32.2 pg (27.0-33.0); MCHC 32.6 % (32.0-36.0); MCV 99 fL (80-95); MPV 11.1 fL (8.0-11.0); Monocytes % 8.1; Neutrophils % 68.1; Platelet Count 303 10^3/uL (130-400); RBC 4.38 10^6/uL (4.36-5.78); RDW 13.2 % (11.8-14.1); RDW-SD 47.7 fL; WBC 8.65 10^3/uL (4.4-10.8)
[2022-04-24 13:29] LABS: Anion Gap 9.5 mmol/L (3-11); BUN 45 mg/dL (7-18); CO2 28.5 mmol/L (21.0-32.0); CREATININE 1.8 mg/dL (0.70-1.30); Calcium 9.4 mg/dL (8.5-10.1); Chloride 102 mmol/L (98-107); Estimated GFR 40.24 (mL/min/1.73m2); Ferritin 77 ng/mL (26-388); Glucose 119 mg/dL (74-106); Potassium 4.3 mmol/L (3.5-5.1); Sodium 140 mmol/L (136-145)
[2022-04-24 13:48] LABS: Iron 100 ug/dL (65-175); Total Iron Binding Capacity 529 ug/dL (250-450); Transferrin Sat 19 % (20-55)
== END 2022-04-24 02:22 | disposition home or self-care (01) ==
LOC: LBO 02:21
PROVIDERS: PCP Student in an Organized Health Care Education/Training Program; Visit Provider Student in an Organized Health Care Education/Training Program
DX: R42 Dizziness and giddiness; T50.2X5A Adverse effect of carbonic-anhydrase inhibitors, benzothiadiazides and other diuretics, initial encounter; Z86.2 Personal history of diseases of the blood and blood-forming organs and certain disorders involving the immune mechanism; Z91.89 Other specified personal risk factors, not elsewhere classified
CPT/HCPCS: 36415; 80048; 82728; 83540; 83550; 83735; 85025

== ENCOUNTER 2022-06-24 15:56 | Outpatient (CLI) | payer MEDICARE, OTHER, SELFPAY ==
[2022-06-24 16:37] LABS: Anion Gap 9.5 mmol/L (3-11); BUN 47 mg/dL (7-18); CO2 25.5 mmol/L (21.0-32.0); CREATININE 1.8 mg/dL (0.70-1.30); Calcium 9.4 mg/dL (8.5-10.1); Chloride 109 mmol/L (98-107); Estimated GFR 40.24 (mL/min/1.73m2); Glucose 119 mg/dL (74-106); Sodium 144 mmol/L (136-145)
== END 2022-06-24 15:57 | disposition home or self-care (01) ==
LOC: LBO 15:56
PROVIDERS: PCP Student in an Organized Health Care Education/Training Program; Visit Provider Student in an Organized Health Care Education/Training Program
DX: E11.65 Type 2 diabetes mellitus with hyperglycemia (principal); I48.91 Unspecified atrial fibrillation; R60.9 Edema, unspecified; S80.811A Abrasion, right lower leg, initial encounter
CPT/HCPCS: 36415; 80048

== ENCOUNTER → 2022-06-25 09:38 | Outpatient (BNVA) | payer MEDICARE, OTHER, SELFPAY | PROVIDERS: PCP Student in an Organized Health Care Education/Training Program; Referring Provider Student in an Organized Health Care Education/Training Program; Visit Provider Nurse Practitioner Gerontology | DX: N32.81 Overactive bladder (principal) | CPT/HCPCS: 51798; 81003; 99214 ==

== ENCOUNTER 2022-07-03 03:37 | Outpatient (CLI) | payer MEDICARE, OTHER, SELFPAY ==
[2022-07-03 15:25] LABS: Anion Gap 9.8 mmol/L (3-11); BUN 60 mg/dL (7-18); CO2 28.2 mmol/L (21.0-32.0); CREATININE 2.1 mg/dL (0.70-1.30); Calcium 9.5 mg/dL (8.5-10.1); Chloride 105 mmol/L (98-107); Estimated GFR 33.45 (mL/min/1.73m2); Potassium 4.6 mmol/L (3.5-5.1); Sodium 143 mmol/L (136-145)
[2022-07-03 15:31] LABS: Glucose 149 mg/dL (74-106)
== END 2022-07-03 03:38 | disposition home or self-care (01) ==
LOC: LBO 03:37
PROVIDERS: PCP Student in an Organized Health Care Education/Training Program; Referring Provider Student in an Organized Health Care Education/Training Program; Visit Provider Student in an Organized Health Care Education/Training Program
DX: E11.65 Type 2 diabetes mellitus with hyperglycemia (principal); N18.30 Chronic kidney disease, stage 3 unspecified; R60.0 Localized edema; I25.10 Atherosclerotic heart disease of native coronary artery without angina pectoris; I48.91 Unspecified atrial fibrillation
CPT/HCPCS: 36415; 80048

== ENCOUNTER 2022-07-14 03:19 | Outpatient (CLI) | payer MEDICARE, OTHER, SELFPAY ==
[2022-07-14 14:13] LABS: Anion Gap 11.1 mmol/L (3-11); BUN 47 mg/dL (7-18); CO2 25.9 mmol/L (21.0-32.0); CREATININE 1.7 mg/dL (0.70-1.30); Calcium 9.6 mg/dL (8.5-10.1); Chloride 103 mmol/L (98-107); Glucose 150 mg/dL (74-106); Potassium 4.5 mmol/L (3.5-5.1); Sodium 140 mmol/L (136-145)
== END 2022-07-14 03:20 | disposition home or self-care (01) ==
LOC: LBO 03:19
PROVIDERS: Absent Provider Student in an Organized Health Care Education/Training Program; PCP Student in an Organized Health Care Education/Training Program; Visit Provider Student in an Organized Health Care Education/Training Program
DX: R79.89 Other specified abnormal findings of blood chemistry (principal); N18.30 Chronic kidney disease, stage 3 unspecified; E11.65 Type 2 diabetes mellitus with hyperglycemia
CPT/HCPCS: 36415; 80048

== ENCOUNTER → 2022-07-22 10:08 | Outpatient (BNVA) | payer MEDICARE, OTHER, SELFPAY | PROVIDERS: PCP Student in an Organized Health Care Education/Training Program; Visit Provider Internal Medicine Cardiovascular Disease | DX: I48.91 Unspecified atrial fibrillation (principal); I25.110 Atherosclerotic heart disease of native coronary artery with unstable angina pectoris | CPT/HCPCS: 99214 ==

== ENCOUNTER 2022-07-22 10:43 | Emergency (ER) | payer MEDICARE, OTHER, SELFPAY ==
--- NOTE | 2022-07-22 10:45 | DI.RAD_ITS ---
Exam(s) XR ANKLE RT COMPLETE EXAM: XR ANKLE RT COMPLETE CLINICAL HISTORY: Right ankle pain. TECHNIQUE: 2D digital imaging was performed of the right ankle. Three images were obtained. AP, la teral and oblique views were obtained. COMPARISON: CR XR ANKLE RT COMPLETE from 10/03/2021 FINDINGS: BONES: No acute fracture is present. No bony destructive lesion is seen. JOINTS: The ankle mortise is normally aligned. SOFT TISSUE: There is soft tissue swelling of the ankle. Atherosclerosis is present. IMPRESSION: Soft tissue swelling of the ankle. No acute fracture or dislocation. DATA REPOSITORY: RADIATION DOSE DELIVERED:
[2022-07-22 10:46] VITALS: BP 119/51; PULSE 52; RESP 16; TEMP 35.8; O2SAT 100
--- NOTE | 2022-07-22 10:55 | ED.GENADUL_ITS ---
Discharge Plan Disposition Patient Disposition: Home Discharge Details Clinical Impression: Localized swelling of right lower leg Primary Care Provider: Clare Medley ED Provider: Enrico Sunshine Home Meds and New Rx's Prescriptions: Continued ammonium lactate 12 % lotion 1 applic topical BID PRN (Reason: dry skin) Qty: 400 0RF ammonium lactate 12 % lotion 1 applic topical BID Qty: 400 1RF Rx Instructions: Trial for excoriated dry skin of arms (DME) FreeStyle Bahman 2 [place] Misc See Rx Instructions .ROUTE .MEDSUPPLY Qty: 1 0RF Rx Instructions: As directed (DME) FreeStyle Bahman 2 Sensor Kit See Rx Instructions .ROUTE .MEDSUPPLY Qty: 2 11RF Rx Instructions: As directed aspirin 81 mg tablet,delayed release (DR/EC) 81 mg PO DAILY Patient Comments: 06/02/19-replaces 325mg. daily dose. [facility] discharge note. JOBY Mchugh (DME) lancets [FreeStyle Lancets] 28 gauge misc See Rx Instructions .ROUTE .MEDSUPPLY Qty: 400 3RF Rx Instructions: to test BS 4X daily for DM/E11.9 and to keep A1c at or under 7.0% (DME) pen needle, diabetic [BD Ultra-Fine Amber Pen Needle] 32 gauge x 5/32 needle 1 ea Miscellaneous QID Qty: 400 3RF Rx Instructions: E11.65 to administer insulin 4x/day insulin glargine [Lantus Solostar U-100 Insulin] 100 unit/mL (3 mL) insulin pen 74 unit Sub-Q QPM Qty: 60 4RF Rx Instructions: Or as directed for dx: E11.65 rosuvastatin 40 mg tablet See Rx Instructions .ROUTE .COMPLEX Qty: 90 3RF Dose Instruction: TAKE 1 TABLET DAILY Rx Instructions: TAKE 1 TABLET DAILY Jardiance 25 mg tablet See Rx Instructions .ROUTE .COMPLEX Qty: 90 3RF Dose Instruction: TAKE 1 TABLET EVERY MORNING Rx Instructions: TAKE 1 TABLET EVERY MORNING melatonin 5 mg capsule 5 - 10 mg PO HS PRN (Reason: sleep difficulty) Qty: 60 1RF Rx Instructions: Sleep difficulty Jardiance 25 mg tablet 25 mg PO QAM Qty: 15 0RF (DME) Blood Glucose Test Strip See Rx Instructions .MEDSUPPLY Qty: 400 3RF Rx Instructions: As directed to check blood glucose four times daily. On insulin. Dispense covered brand. lorazepam 2 mg tablet 2 mg PO ONCE Qty: 1 0RF Rx Instructions: Take one hour prior to MRI start nitroglycerin 0.4 mg tablet, sublingual 0.4 mg SL Q5M PRN (Reason: chest pain) Qty: 90 2RF Rx Instructions: Take 1 at onset of chest pain, may repeat x2 q5 min if pain continues. losartan 25 mg tablet See Rx Instructions .ROUTE .COMPLEX Qty: 90 3RF Dose Instruction: TAKE 1 TABLET AT BEDTIME FOR DIABETES, AND TO PROTECT KIDNEYS Rx Instructions: TAKE 1 TABLET AT BEDTIME FOR DIABETES, AND TO PROTECT KIDNEYS Myrbetriq 50 mg tablet extended release 24 hr 50 mg PO DAILY Qty: 90 3RF levothyroxine 50 mcg tablet 50 mcg PO DAILY Qty: 90 1RF Rx Instructions: Thyroid fenofibrate nanocrystallized [Tricor] 145 mg tablet 145 mg PO DAILY Qty: 90 3RF amlodipine 10 mg tablet 10 mg PO DAILY Qty: 90 3RF Rx Instructions: Blood pressure & Heart health metoprolol tartrate 25 mg tablet 25 mg PO BID Qty: 180 3RF Rx Instructions: Heart Eliquis 5 mg tablet 5 mg PO BID Qty: 180 3RF insulin aspart U-100 [Novolog FlexPen U-100 Insulin] 100 unit/mL (3 mL) insulin pen See Rx Instructions .ROUTE .COMPLEX Qty: 90 3RF Dose Instruction: INJECT 10 TO 30 UNITS BEFORE MEALS PER MEALTIME CORRECTION SCHEDULE Rx Instructions: INJECT 10 TO 30 UNITS BEFORE MEALS PER MEALTIME CORRECTION SCHEDULE furosemide 40 mg tablet 40 mg PO DAILY Qty: 90 3RF Hold Instructions: Home Medication placed on hold at Doctor's office Rx Instructions: Re-start, 06/26/22 Discharge Instructions Additional Instructions: You were seen in the emergency department for your ankle swelling. Your x-ray showed no sign of any fractures. Your ultrasound showed no sign of a DVT. Please schedule an appointment with your primary care provider later this week. Please return to the emergency department if you develop shortness of breath worsening pain or any fevers. Medical Decision Making This is an overall quite well-appearing afebrile and not tachycardic elderly gentleman with indolent onset right ankle pain with swelling status post ankle injury last week concerning for fracture versus DVT. Patient is anticoagulated with apixaban and has no more proximal calf tenderness but given asymmetric ankl e swelling we will obtain right lower extremity duplex study to assess for DVT. No calf pain and no recent fluoroquinolone use so I am not concerned for Achilles tendons rupture. He has no bilateral lower extremity swelling nor any shortness of breath to suggest acute CHF. He has no pain out of proportion to suggest necrotizing soft tissue infection. He has no fluctuance to suggest abscess. No significant erythema to suggest cellulitis. Foot warm well perfused so I am not concerned for vascular insult. No tenderness or any recent history of knee injury to suggest knee dislocation and relocation so I do not feel that the patient requires a CTA of his lower extremity. No abdominal pain to suggest ruptured AAA. No signs of any diabetic foot ulcers. Will obtain CBC and basic metabolic panel to assess for any acute anemia or any acute electrolyte abnormalities respectively. If x-ray is unremarkable and DVT is unremarkable patient reportedly has primary care follow-up later today. Given remote prior tibial injury with residual orthopedic hardware it certainly could be that the patient has swelling secondary to this remote injury. Chart review indicates patient has been seen in the emergency department in the past for right lower extremity swelling and had a reassuring DVT study at that point time which showed a De Los Santos's cyst but no DVT. If imaging is reassuring without signs of DVT nor fracture, we will proceed with empiric trial of expectant outpatient management. 11:45 AM Formal radiology read of the patient's right ankle x-ray shows soft tissue swelling of the right ankle with no obvious fracture or dislocation. 12:05 PM CBC with no anemia leukocytosis nor thrombocytopenia. 12:15 PM Basic metabolic panel returned with elevated BUN at 42 and creatinine at 1.6. Patient does have a history of CKD and he has been urinating normally. Unfortunately due to unexpected system malfunction of electronic medical record WHILL I am not able to compare prior lab values. According to chart review at [facility] patient had a creatinine in 2019 of 1.89 and his BUN was 46. As result my suspicion is exceedingly low for GLENYS. He was mildly hyperglycemic with a serum glucose of 117 but he had a normal bicarbonate so in the absence of acidemia I am not concerned for DKA. 4:15 PM Ultrasound negative for DVT. I advised patient to return if his pain worsens or if he developed fevers. Otherwise I discharged with outpatient PMD follow-up. HPI General Date/Time Provider Initiated Documentation: 07/22/22 10:52 . HPI Narrative: This is a 71-year-old male with history of diabetes and right ankle injury last week now with right lower extremity swelling and pain. Patient notes that he was shoveling snow last week and he twisted his right ankle. He reported that he did not fall nor hit his head. He reports remote prior right tibial injury with hardware in place. He reports that he did not think much of his injury at the time but that subsequently he has noticed more swelling in his right lower extremity. He has not recently been on any antibiotics. He did not strike his head nor fall. He is not having any chest pain or shortness of breath. He has never had a PE nor DVT and he reports being adherent with his home apixaban. He denies any recent fevers chills nausea vomiting dysuria and frequency. Chart review from [facility] indicates that patient had right-sided contusion of his lower extremity and persistent pain after a fall for which he had an MRI performed. His MRI showed signs of a subcutaneous hematoma or Beth-María lesion for which radiology advised repeat ultrasound. [facility] orthopedic notes also indicate that the patient had left-sided ankle syndesmosis screw removal approximately 6 years ago. Related Data Home Medications Medication Instructions Recorded Confirmed aspirin 81 mg tablet,delayed 81 mg PO DAILY 06/02/19 07/22/22 release lancets 28 gauge (FreeStyle #400 ea 02/11/21 07/22/22 Lancets) pen needle, diabetic 32 gauge x #400 ea 03/25/21 07/22/22/32 (BD Ultra-Fine Amber Pen Needle) insulin glargine 100 unit/mL (3 74 unit (0.74 mL) subcut QPM #60 mL 08/14/21 07/22/22 mL) subcutaneous pen (Lantus Solostar U-100 Insulin) rosuvastatin 40 mg tablet See Rx Instructions .Route 09/24/21 07/22/22 .COMPLEX #90 tabs empagliflozin 25 mg tablet See Rx Instructions .Route 10/15/21 07/22/22 (Jardiance) .COMPLEX #90 tabs flash glucose scanning reader #1 ea 11/17/21 07/22/22 (FreeStyle Bahman 2 [place]) flash glucose sensor (FreeStyle #2 ea 11/17/21 07/22/22 Bahman 2 Sensor kit) melatonin 5 mg capsule 5 - 10 mg PO HS PRN sleep 11/17/21 07/22/22 difficulty #60 caps empagliflozin 25 mg tablet 25 mg PO QAM #15 tabs 11/29/21 07/22/22 (Jardiance) blood sugar diagnostic (Blood #400 ea 12/13/21 07/22/22 Glucose Test strips) lorazepam 2 mg tablet 2 mg PO ONCE #1 tab 01/10/22 07/22/22 nitroglycerin 0.4 mg sublingual 0.4 mg sublingual Q5M PRN chest 01/10/22 tablet pain #90 tabs losartan 25 mg tablet See Rx Instructions .Route 05/19/22 07/22/22 .COMPLEX #90 tabs levothyroxine 50 mcg tablet 50 mcg PO DAILY #90 tab-caps 06/02/22 07/22/22 mirabegron 50 mg tablet,extended 50 mg PO DAILY #90 tabs 06/02/22 07/22/22 release 24 hr (Myrbetriq) amlodipine 10 mg tablet 10 mg PO DAILY #90 tabs 06/09/22 07/22/22 fenofibrate nanocrystallized 145 145 mg PO DAILY #90 tab-caps 06/09/22 07/22/22 mg tablet (Tricor) metoprolol tartrate 25 mg tablet 25 mg PO BID #180 tab-caps 06/09/22 07/22/22 apixaban 5 mg tablet (Eliquis) 5 mg PO BID #180 tabs 06/23/22 07/22/22 ammonium lactate 12 % lotion 1 applic topical BID #400 grams 06/24/22 07/22/22 ammonium lactate 12 % lotion 1 applic topical BID PRN dry skin 06/24/22 07/22/22 #400 grams insulin aspart U-100 100 unit/mL See Rx Instructions .Route 06/30/22 07/22/22 (3 mL) subcutaneous pen (Novolog .COMPLEX #90 mL FlexPen U-100 Insulin aspart) furosemide 40 mg tablet 40 mg PO DAILY #90 tabs 07/03/22 07/22/22 Previous Rx's Medication Instructions Recorded lancets 28 gauge (FreeStyle #400 ea 02/11/21 Lancets) pen needle, diabetic 32 gauge x #400 ea 03/25/21 (BD Ultra-Fine Amber Pen Needle) insulin glargine 100 unit/mL (3 74 unit (0.74 mL) subcut QPM #60 mL 08/14/21 mL) subcutaneous pen (Lantus Solostar U-100 Insulin) rosuvastatin 40 mg tablet See Rx Instructions .Route 09/24/21 .COMPLEX #90 tabs empagliflozin 25 mg tablet See Rx Instructions .Route 10/15/21 (Jardiance) .COMPLEX #90 tabs flash glucose scanning reader #1 ea 11/17/21 (FreeStyle Bahman 2 [place]) flash glucose sensor (FreeStyle #2 ea 11/17/21 Bahman 2 Sensor kit) melatonin 5 mg capsule 5 - 10 mg PO HS PRN sleep 11/17/21 difficulty #60 caps empagliflozin 25 mg tablet 25 mg PO QAM #15 tabs 11/29/21 (Jardiance) blood sugar diagnostic (Blood #400 ea 12/13/21 Glucose Test strips) lorazepam 2 mg tablet 2 mg PO ONCE #1 tab 01/10/22 nitroglycerin 0.4 mg sublingual 0.4 mg sublingual Q5M PRN chest 01/10/22 tablet pain #90 tabs losartan 25 mg tablet See Rx Instructions .Route 05/19/22 .COMPLEX #90 tabs levothyroxine 50 mcg tablet 50 mcg PO DAILY #90 tab-caps 06/02/22 mirabegron 50 mg tablet,extended 50 mg PO DAILY #90 tabs 06/02/22 release 24 hr (Myrbetriq) amlodipine 10 mg tablet 10 mg PO DAILY #90 tabs 06/09/22 fenofibrate nanocrystallized 145 145 mg PO DAILY #90 tab-caps 06/09/22 mg tablet (Tricor) metoprolol tartrate 25 mg tablet 25 mg PO BID #180 tab-caps 06/09/22 apixaban 5 mg tablet (Eliquis) 5 mg PO BID #180 tabs 06/23/22 ammonium lactate 12 % lotion 1 applic topical BID #400 grams 06/24/22 ammonium lactate 12 % lotion 1 applic topical BID PRN dry skin 06/24/22 #400 grams insulin aspart U-100 100 unit/mL See Rx Instructions .Route 06/30/22 (3 mL) subcutaneous pen (Novolog .COMPLEX #90 mL FlexPen U-100 Insulin aspart) furosemide 40 mg tablet 40 mg PO DAILY #90 tabs 07/03/22 Allergies Allergy/AdvReac Type Severity Reaction Status Date / Time No Known Allergies Allergy Verified 07/22/22 10:49 General Stated Complaint: Orthopedic CHRISTIANE: 4 PFSH All Active Problems (Updated 07/22/22 @ 13:44 by Enrico Sunshine MD) Localized swelling of right lower leg (Acute) Edema (Acute) Foot pain (Acute) Nail dystrophy (Acute) Cognitive impairment (Acute) Abrasion of skin of right lower leg (Acute) Asymmetrical sensorineural hearing loss (Acute) Chest pain (Acute) Pre-syncope (Acute) Ataxia (Acute) Unsteady gait (Acute) Keeps losing balance (Acute) Anemia (Chronic) Slow heart rate (Acute) Dizziness (Acute) Diabetes mellitus with neuropathy (Chronic) Reduced monofilament 06/24/2019 Goal A1C 7.5% or less Overactive bladder (Acute) Myrbetriq started [ ] ... Oxybutynin, discontinued 06/24/19 in favor of optimizing DMT2 management Uncontrolled diabetes mellitus (Acute) IMPROVED since CGM! and diet improvements. Mtg with nutrition team. Goal </=7.5% Atrial fibrillation (Chronic) Apixaban 06/22/2019 CKD (chronic kidney disease), stage III (Chronic) Coronary artery disease (Chronic) 3-vessel (LAD, LCX, RCA) Cardiomegaly (Acute) CXR; ECHO 05/2019 [facility]--LVEF 53%, +LVH (mild), no significant valvular disease; stable compared with 2017 study Current use of insulin (Chronic) MERRITT (obstructive sleep apnea) (Chronic) Bi-PAP 07/23/19 Arthritis of both knees (Chronic) Acquired hypothyroidism (Chronic 10/28/16) High TSH, but WNL T4 (2021) .. 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 Depressive disorder marital issues Diabetes mellitus type 2 in obese Essential hypertension H/O renal calculi History of nicotine dependence Hypomagnesemia (06/22/14) Only 1.0 in the ER today. Hypothyroidism Kidney stone calcium oxylate Knee contusion Left ankle sprain Low back pain L4-[address] Maisonneuve fracture of left fibula (05/07/16) Nicotine dependence Cessated Pipe smoker SARS-CoV-2 positive (~04/2021) Tendinitis of right shoulder Umbilical hernia Recurrent x 2, repaired x 3. Surgical History Appendectomy Colonoscopy - IV Sedation Extraction of cataract 11/23/14; DR. GOINS; RIGHT EYE 12/07/14; DR. GOINS; LEFT EYE Fracture, Open Treatment ORIF-LEFT SYNDESMOSIS WITH TWO SCREWS History of cataract removal with insertion of prosthetic lens (11/23/14) History of umbilical hernia repair Repair of umbilical hernia S/P cardiac catheterization (05/31/19) Status post appendectomy Status post coronary artery bypass with autogenous graft, 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) 2017 Status post coronary artery stent placement (09/26/16) One vessel for unstable angina Family History Father Diabetes Dementia Neoplasm PANCREATIC Social History Smoking/Tobacco Use Status: Former Tobacco Use Quit Date: 01/02/17 Pack-years: 40 Tobacco: How many years used: 40 Smoking risk assessment performed?: Yes Alcohol Intake: current Alcohol Intake frequency: a few times a week Alcohol type: beer and hard liquor Counseling given: Yes Counseling provided: reduce to 2 or less/day Details: 3-5 nights/wk drinks shot of hard liquor and multiple beers (3) Drug use: Never Substance use type: does not use Adopted: No Caregiver/Support person: No Foster care: No Household members: none and other Details: Cats Number of Children: 3 number of grandchildren: 4 Communication Needs: None Do you need help understanding health information?: Rarely Pets and animals: Yes Pets and animals: cat(s) Do you think of yourself as: straight/heterosexual Current gender identity: male What is your relationship status?: Panel score (0-1 are the most socially isolated patients): 0 What type of physical activity do you participate in: none Seatbelt use: always Drive intox 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 Exam Narrative Exam Narrative: General: Well-appearing in no acute distress speaking in complete sentences. Head: Normocephalic, atraumatic Ear, nose, mouth, throat: Grossly normal inspection. Normal voice, handling secretions normally. Neck: Trachea midline. Cardiovascular: Well-perfused distal extremities. Difficult to assess for JVD. Respiratory: Nonlabored respiration. Clear lungs bilaterally. Gastrointestinal: Nondistended abdomen. Right lower extremity with 1+ pitting edema. No calf tenderness. No significant erythema nor fluctuance. No pain out of proportion. Right foot warm well perfused with 2+ PT and DP pulses. No toe amputations. No diabetic foot ulcers. Left lower extremity: No significant lower extremity edema on the left. Skin: Normal for age and race, grossly normal temperature and turgor. No acute rash. Neurologic: Alert and appropriate, no apparent acute deficits. Psychiatric: Mood and manner are appropriate. Grooming and personal hygiene are appropriate. Course Vital Signs Vital signs: Vital Signs Temperature 35.8 C L 07/22/22 10:46 Pulse 52 L 07/22/22 10:46 Respiratory Rate 16 07/22/22 10:46 Blood Pressure 119/51 L 07/22/22 10:46 Pulse Oximetry 100 07/22/22 10:46 Temperature 35.8 C L 07/22/22 10:46 Temperature Source Tympanic 07/22/22 10:46 Pulse 52 L 07/22/22 10:46 Respiratory Rate 16 07/22/22 10:46 Respiratory Effort Normal 07/22/22 10:49 Blood Pressure 119/51 L 07/22/22 10:46 Blood Pressure Position Sitting 07/22/22 10:46 Pulse Oximetry 100 07/22/22 10:46 Oxygen Delivery Method Room Air 07/22/22 10:46 Oxygen Flow Rate 0 07/22/22 10:46 Pain Level 6 07/22/22 10:46
--- NOTE | 2022-07-22 13:15 | DI.US_ITS ---
Exam(s) US LOWER EXTREMITY VENOUS RT EXAM: US LOWER EXTREMITY VENOUS RT CLINICAL HISTORY: Right lower extremity swelling TECHNIQUE: Right lower extremity venous ultrasound performed using grayscale, color-flow, and spectr al Doppler analysis. COMPARISON: US US LOWER EXTREMITY VENOUS RT from 02/04/2022 FINDINGS: The right common femoral, femoral and popliteal veins demonstrate normal compressibility, augmentatio n, and color Doppler. The posterior tibial veins are patent. The saphenofemoral junction is unremark able. There is no evidence of a De Los Santos cyst. The soft tissues are unremarkable. IMPRESSION: 1. No evidence of a right lower extremity DVT. 2. Findings were discussed with the emergency department at 1:40 p.m. on 07/22/2022. DATA REPOSITORY:
[2022-07-22 13:45] VITALS: BP 133/66; PULSE 51; RESP 18; TEMP 35.8; O2SAT 97
[2022-07-22 13:55] LABS: Anion Gap 11.7 mmol/L (3-11); BUN 42 mg/dL (7-18); CO2 22.3 mmol/L (21.0-32.0); CREATININE 1.6 mg/dL (0.70-1.30); Chloride 106 mmol/L (98-107); Estimated GFR 46.35 (mL/min/1.73m2); Glucose 117 mg/dL (74-106); Potassium 4.4 mmol/L (3.5-5.1); Sodium 140 mmol/L (136-145)
[2022-07-22 13:56] LABS: Absolute Basophil Count 0.04 10^3/uL (0.0-0.2); Absolute Eosinophil Count 0.13 10^3/uL (0.0-0.7); Absolute Lymphocyte Count 1.58 10^3/uL (1.2-3.4); Absolute Monocyte Count 0.78 10^3/uL (0.1-0.8); Absolute Neutrophil Count 6.09 10^3/uL (1.2-6.7); Basophils % 0.5; Eosinophils % 1.5; HCT 39.8 % (40.0-50.0); HGB 13.2 g/dL (13.5-17.5); Immature Grans % 0.3; Lymphocytes % 18.3; MCH 32.4 pg (27.0-33.0); MCHC 33.2 % (32.0-36.0); MCV 98 fL (80-95); MPV 10.8 fL (8.0-11.0); Neutrophils % 70.4; Platelet Count 312 10^3/uL (130-400); RBC 4.07 10^6/uL (4.36-5.78); RDW 12.9 % (11.8-14.1); RDW-SD 46.4 fL; WBC 8.65 10^3/uL (4.4-10.8)
[2022-07-22 13:57] LABS: Abs Immature Grans 0.03 10^3/uL (0.0-0.06)
== END 2022-07-22 14:00 | disposition home or self-care (01) ==
PROVIDERS: Emergency Provider Emergency Medicine; PCP Student in an Organized Health Care Education/Training Program
DX: R22.41 Localized swelling, mass and lump, right lower limb (principal); I12.9 Hypertensive chronic kidney disease with stage 1 through stage 4 chronic kidney disease, or unspecified chronic kidney disease; E11.22 Type 2 diabetes mellitus with diabetic chronic kidney disease; N18.9 Chronic kidney disease, unspecified; E03.9 Hypothyroidism, unspecified; R79.89 Other specified abnormal findings of blood chemistry; Z79.01 Long term (current) use of anticoagulants; Z79.82 Long term (current) use of aspirin; Z79.4 Long term (current) use of insulin; Z86.16 Personal history of COVID-19
CPT/HCPCS: 80048; 99214; 99284; 73610; 85025; 93971; 99282

== ENCOUNTER 2022-07-29 03:06 | Outpatient (CLI) | payer MEDICARE, OTHER, SELFPAY ==
--- NOTE | 2022-07-29 13:00 | NS.NUTBLAN_ITS ---
Tripp was referred for diabetes self management education. He received a Libre2 CGM about 2 months ago. Forgot to bring reader today for data download. Will drop off later in week. DM meds: 25 mg jardiance qd, 74 units glargine q HS, about 10 units aspart at meals. A1C: 09/2021: 8.4%, 06/24/22: 7.3% Target A1C in view of age and comorbidities: >8.5% 5'10 308 lbs BMI 44 PMH: DM2, CKD stage 3,neuropathy, hyperlipidemia, obesity Diet Recall: skips breakfasts. Walks on treadmill for 1 hour daily from 11- noon. Lunch: home made soup or sandwich, Dinner: meat, starch vegetables. Eats out 1-2 times per week. No excess intake of sweets or snacks. Reports weekly hypoglycemia - usually around 50-55 mg/dl. Alarm goes off. Konrad is frustrated he is not losing weight despite walking for 1 hour daily. Suspect high amount of long acting insulin leading to weight gain and some hypoglycemia. Recommend reducing glargine by 3 units every 3 days while keep time in range at min of 70%. CGM has been very helpful for Konrad and helps him make better meal choices. WIll be able to reduce glargine and monitor affect on blood sugars. Session today focused on reviewing typical meals and exercise habits, encouraged continued commitment to maintaining blood sugars in ideal range (70-180) with no hypoglcyemic events. Suspect will be able to lose about 4 lbs per month once glargine reduce and Konrad continues to walk on treadmill. Mook drop off CGM reader for data down later this maria g. Will fax to PCP and provide Konrad with copy at that time.
== END 2022-07-29 03:07 | disposition home or self-care (01) ==
LOC: DS 03:06
PROVIDERS: PCP Student in an Organized Health Care Education/Training Program; Visit Provider Dietitian, Registered
DX: E11.9 Type 2 diabetes mellitus without complications (principal); Z79.4 Long term (current) use of insulin; Z71.3 Dietary counseling and surveillance; E66.01 Morbid (severe) obesity due to excess calories; Z68.41 Body mass index [BMI] 40.0-44.9, adult
CPT/HCPCS: 97802

== ENCOUNTER 2022-08-14 10:51 | Outpatient (CLI) | payer MEDICARE, OTHER, SELFPAY ==
--- NOTE | 2022-08-14 09:30 | DI.RAD_ITS ---
Exam(s) XR KNEE RT 3V AP,LAT,JAQUELINE EXAM: XR KNEE RT 3V AP,LAT,JAQUELINE CLINICAL HISTORY: right knee pain. TECHNIQUE: 2D digital imaging was performed. Three views. COMPARISON: CR,XR XR KNEE RT 3V AP,LAT,JAQUELINE from 10/03/2021 FINDINGS: BONES: No acute fracture is present. No bony destructive lesion is seen. JOINTS: Moderate narrowing medial femoral tibial joint space. Severe narrowing of patellofemoral gita nt. The knee is normally aligned. No joint effusion is seen. SOFT TISSUE: Vascular clips. Vascular calcifications. IMPRESSION: Degenerative changes. DATA REPOSITORY: RADIATION DOSE DELIVERED:
== END 2022-08-14 10:52 | disposition home or self-care (01) ==
LOC: DIORS 10:51
PROVIDERS: PCP Student in an Organized Health Care Education/Training Program; Referring Provider Student in an Organized Health Care Education/Training Program; Visit Provider Physician Assistant
DX: M17.11 Unilateral primary osteoarthritis, right knee
CPT/HCPCS: 20610; 73562; J1040

== ENCOUNTER 2022-08-29 01:20 | Outpatient (CLI) | payer MEDICARE, OTHER, SELFPAY ==
[2022-08-29 10:36] LABS: Calculated LDL 73 mg/dL (<100); Cholesterol 160 mg/dL (<200); HDL Cholesterol 44 mg/dL (40-60); Triglyceride 218 mg/dL (<150)
== END 2022-08-29 01:21 | disposition home or self-care (01) ==
LOC: LBO 01:21
PROVIDERS: PCP Student in an Organized Health Care Education/Training Program; Visit Provider Student in an Organized Health Care Education/Training Program
DX: Z13.220 Encounter for screening for lipoid disorders (principal); E11.40 Type 2 diabetes mellitus with diabetic neuropathy, unspecified
CPT/HCPCS: 36415; 80061

== ENCOUNTER → 2022-10-01 13:03 | Outpatient (BNVA) | payer MEDICARE, OTHER, SELFPAY | PROVIDERS: PCP Student in an Organized Health Care Education/Training Program; Visit Provider Nurse Practitioner Gerontology | DX: N32.81 Overactive bladder (principal) | CPT/HCPCS: 51798; 99213 ==

== ENCOUNTER 2022-10-02 05:00 | Outpatient (CLI) | payer MEDICARE, OTHER, SELFPAY ==
[2022-10-02 11:26] LABS: Magnesium 1.9 mg/dL (1.8-2.4); TSH (W/Ref FT4) 2.69 uIU/mL (0.36-3.74)
[2022-10-02 11:45] LABS: ALT 26 U/L (16-63); AST 24 U/L (15-37); Albumin 4.2 g/dL (3.4-5.0); Alkaline Phosphatase 72 U/L (46-116); Anion Gap 11.6 mmol/L (3-11); BUN 39 mg/dL (7-18); Bilirubin, Total 0.5 mg/dL (0.2-1.0); CO2 25.4 mmol/L (21.0-32.0); CREATININE 1.8 mg/dL (0.70-1.30); Calcium 9.5 mg/dL (8.5-10.1); Chloride 104 mmol/L (98-107); Estimated GFR 40.24 (mL/min/1.73m2); Glucose 191 mg/dL (74-106); Potassium 4.7 mmol/L (3.5-5.1); Sodium 141 mmol/L (136-145); Total Protein 7.9 g/dL (6.4-8.2)
== END 2022-10-02 05:01 | disposition home or self-care (01) ==
PROVIDERS: Family Medicine; PCP Student in an Organized Health Care Education/Training Program; Visit Provider Student in an Organized Health Care Education/Training Program
DX: E03.9 Hypothyroidism, unspecified (principal); E11.65 Type 2 diabetes mellitus with hyperglycemia; I25.10 Atherosclerotic heart disease of native coronary artery without angina pectoris; N18.30 Chronic kidney disease, stage 3 unspecified; R60.0 Localized edema
CPT/HCPCS: 36415; 80048; 80053; 83735; 84443

== ENCOUNTER 2022-10-14 18:37 | Outpatient (CLI) | payer MEDICARE, OTHER, SELFPAY ==
[2022-10-14 10:34] LABS: Anion Gap 8.1 mmol/L (3-11); BUN 48 mg/dL (7-18); CO2 22.9 mmol/L (21.0-32.0); CREATININE 1.8 mg/dL (0.70-1.30); Calcium 8.7 mg/dL (8.5-10.1); Chloride 107 mmol/L (98-107); Estimated GFR 40.24 (mL/min/1.73m2); Glucose 150 mg/dL (74-106); Potassium 4.5 mmol/L (3.5-5.1); Sodium 138 mmol/L (136-145)
== END 2022-10-14 18:38 | disposition home or self-care (01) ==
LOC: LBO 18:39
PROVIDERS: PCP Student in an Organized Health Care Education/Training Program; Visit Provider Student in an Organized Health Care Education/Training Program
DX: E87.8 Other disorders of electrolyte and fluid balance, not elsewhere classified (principal); N17.9 Acute kidney failure, unspecified; R60.9 Edema, unspecified; E03.9 Hypothyroidism, unspecified; E11.40 Type 2 diabetes mellitus with diabetic neuropathy, unspecified; E11.65 Type 2 diabetes mellitus with hyperglycemia; I25.10 Atherosclerotic heart disease of native coronary artery without angina pectoris; N18.30 Chronic kidney disease, stage 3 unspecified
CPT/HCPCS: 36415; 80048; 83735

== ENCOUNTER 2022-10-17 14:17 | Outpatient (CLI) | payer MEDICARE, OTHER, SELFPAY ==
[2022-10-17 10:55] LABS: Abs Immature Grans 0.05 10^3/uL (0.0-0.06); Absolute Basophil Count 0.06 10^3/uL (0.0-0.2); Absolute Eosinophil Count 0.15 10^3/uL (0.0-0.7); Absolute Lymphocyte Count 1.81 10^3/uL (1.2-3.4); Absolute Monocyte Count 0.81 10^3/uL (0.1-0.8); Absolute Neutrophil Count 5.91 10^3/uL (1.2-6.7); Basophils % 0.7; Eosinophils % 1.7; HCT 41.5 % (40.0-50.0); HGB 13.8 g/dL (13.5-17.5); Immature Grans % 0.6; Lymphocytes % 20.6; MCH 32.5 pg (27.0-33.0); MCHC 33.3 % (32.0-36.0); MCV 98 fL (80-95); MPV 10.9 fL (8.0-11.0); Monocytes % 9.2; Neutrophils % 67.2; Platelet Count 272 10^3/uL (130-400); RBC 4.25 10^6/uL (4.36-5.78); RDW 13.3 % (11.8-14.1); RDW-SD 47.9 fL; WBC 8.79 10^3/uL (4.4-10.8)
[2022-10-17 11:51] LABS: Anion Gap 11.3 mmol/L (3-11); BUN 51 mg/dL (7-18); CO2 21.7 mmol/L (21.0-32.0); CREATININE 2.1 mg/dL (0.70-1.30); Calcium 8.6 mg/dL (8.5-10.1); Chloride 103 mmol/L (98-107); Estimated GFR 33.45 (mL/min/1.73m2); Ferritin 95 ng/mL (26-388); Glucose 172 mg/dL (74-106); Sodium 136 mmol/L (136-145)
[2022-10-17 11:54] LABS: Iron 67 ug/dL (65-175); Total Iron Binding Capacity 456 ug/dL (250-450); Transferrin Sat 15 % (20-55)
== END 2022-10-17 14:18 | disposition home or self-care (01) ==
LOC: LBO 14:18
PROVIDERS: PCP Student in an Organized Health Care Education/Training Program; Visit Provider Student in an Organized Health Care Education/Training Program
DX: E11.40 Type 2 diabetes mellitus with diabetic neuropathy, unspecified (principal); Z79.4 Long term (current) use of insulin; N18.31 Chronic kidney disease, stage 3a; Z86.2 Personal history of diseases of the blood and blood-forming organs and certain disorders involving the immune mechanism
CPT/HCPCS: 36415; 80048; 82728; 83540; 83550; 85025

== ENCOUNTER 2022-12-09 12:59 | Outpatient (CLI) | payer MEDICARE, OTHER, SELFPAY ==
[2022-12-09 14:22] LABS: Abs Immature Grans 0.06 10^3/uL (0.0-0.06); Absolute Basophil Count 0.05 10^3/uL (0.0-0.2); Absolute Eosinophil Count 0.16 10^3/uL (0.0-0.7); Absolute Lymphocyte Count 1.54 10^3/uL (1.2-3.4); Absolute Monocyte Count 0.76 10^3/uL (0.1-0.8); Absolute Neutrophil Count 6.34 10^3/uL (1.2-6.7); Basophils % 0.6; Eosinophils % 1.8; HCT 40.5 % (40.0-50.0); HGB 13.3 g/dL (13.5-17.5); Immature Grans % 0.7; Lymphocytes % 17.3; MCH 32.6 pg (27.0-33.0); MCHC 32.8 % (32.0-36.0); MCV 99 fL (80-95); Monocytes % 8.5; Neutrophils % 71.1; Platelet Count 282 10^3/uL (130-400); RBC 4.08 10^6/uL (4.36-5.78); RDW 13.4 % (11.8-14.1); RDW-SD 48.9 fL; WBC 8.91 10^3/uL (4.4-10.8)
[2022-12-09 14:38] LABS: Anion Gap 9.9 mmol/L (3-11); BUN 41 mg/dL (7-18); CO2 23.1 mmol/L (21.0-32.0); CREATININE 1.5 mg/dL (0.70-1.30); Calcium 9.3 mg/dL (8.5-10.1); Chloride 104 mmol/L (98-107); Estimated GFR 49.77 (mL/min/1.73m2); Glucose 165 mg/dL (74-106); PHOSPHORUS 3.3 mg/dL (2.6-4.7); Potassium 4.5 mmol/L (3.5-5.1); Sodium 137 mmol/L (136-145)
[2022-12-09 15:12] LABS: Iron 74 ug/dL (65-175)
--- NOTE | 2022-12-09 15:30 | DI.RAD_ITS ---
Exam(s) XR FOOT RT COMPLETE EXAM: XR FOOT RT COMPLETE CLINICAL HISTORY: Right hallux pain, M79.674. TECHNIQUE: 2D digital imaging was performed. Three views. COMPARISON: CR XR FOOT LT COMPLETE from 12/09/2022 FINDINGS: BONES: No acute fracture is present. No bony destructive lesion is seen. JOINTS: No dislocation present. Mild to moderate intertarsal degenerative changes. Degenerative tc nges interphalangeal joint of great toe. Plantar arch is maintained. SOFT TISSUE: Vascular calcifications. IMPRESSION: Intertarsal degenerative changes. DATA REPOSITORY: RADIATION DOSE DELIVERED:
--- NOTE | 2022-12-09 15:30 | DI.RAD_ITS ---
Exam(s) XR FOOT LT COMPLETE EXAM: XR FOOT LT COMPLETE CLINICAL HISTORY: Left 2-3 MPJ pain, metatarsalgia of lt foot, M77.42. TECHNIQUE: 2D digital imaging was performed. Three views. COMPARISON: No exams were available for comparison FINDINGS: BONES: No acute fracture is present. No bony destructive lesion is seen. Small plantar calcaneal sp ur. JOINTS: No dislocation present. Plantar arch is maintained. Mild intertarsal degenerative changes. Minimal degenerative changes 1st MTP joint. SOFT TISSUE: Vascular calcifications. IMPRESSION: Mild degenerative changes and heel spur. DATA REPOSITORY: RADIATION DOSE DELIVERED:
[2022-12-09 15:33] LABS: Vitamin D 25 Total 7.9 ng/mL (30-100)
[2022-12-09 22:44] LABS: Parathyroid Hormone,Intact 41 pg/mL (19-88)
== END 2022-12-09 13:00 | disposition home or self-care (01) ==
PROVIDERS: PCP Student in an Organized Health Care Education/Training Program; Visit Provider Internal Medicine
DX: E55.9 Vitamin D deficiency, unspecified; N18.9 Chronic kidney disease, unspecified; M77.42 Metatarsalgia, left foot; M19.071 Primary osteoarthritis, right ankle and foot; M19.072 Primary osteoarthritis, left ankle and foot; M77.8 Other enthesopathies, not elsewhere classified
CPT/HCPCS: 36415; 80048; 82306; 73630; 83540; 83970; 84100; 85025

== ENCOUNTER → 2022-12-11 00:38 | Outpatient (CLI) | payer MEDICARE, OTHER, SELFPAY | PROVIDERS: PCP Student in an Organized Health Care Education/Training Program; Visit Provider Student in an Organized Health Care Education/Training Program | DX: I25.10 Atherosclerotic heart disease of native coronary artery without angina pectoris (principal) | CPT/HCPCS: 96365; 93306; J1756 ==

== ENCOUNTER 2023-01-01 01:21 | Outpatient (RCR) | payer MEDICARE, OTHER, SELFPAY ==
[2022-12-04] MEDS: IRON SUCROSE COMPLEX 200 MG in Normal Saline 100 ML 440 MG IVPB (13:06)
[2022-12-04] MEDS: Normal Saline Flush 10 ML SYR IVP (13:06)
[2022-12-11] MEDS: IRON SUCROSE COMPLEX 200 MG in Normal Saline 100 ML 440 MG IVPB (13:22)
[2022-12-18] MEDS: Normal Saline Flush 10 ML SYR IVP (13:33)
[2022-12-18] MEDS: IRON SUCROSE COMPLEX 200 MG in Normal Saline 100 ML 440 MG IVPB (13:33)
[2022-12-25] MEDS: IRON SUCROSE COMPLEX 200 MG in Normal Saline 100 ML 440 MG IVPB (13:21)
[2022-12-25] MEDS: Normal Saline Flush 10 ML SYR IVP (13:26)
[2023-01-01] MEDS: Normal Saline Flush 10 ML SYR IVP (13:31)
[2023-01-01] MEDS: IRON SUCROSE COMPLEX 200 MG in Normal Saline 100 ML 440 MG IVPB (13:31)
== END 2023-01-01 23:59 | disposition home or self-care (01) ==
LOC: INF 01:21
PROVIDERS: PCP Student in an Organized Health Care Education/Training Program; Visit Provider Student in an Organized Health Care Education/Training Program
DX: E61.1 Iron deficiency; Z86.2 Personal history of diseases of the blood and blood-forming organs and certain disorders involving the immune mechanism; R53.83 Other fatigue
CPT/HCPCS: 96365; J1756

== ENCOUNTER 2023-01-09 02:09 | Outpatient (CLI) | payer MEDICARE, OTHER, SELFPAY ==
[2023-01-09 11:57] LABS: Anion Gap 11.1 mmol/L (3-11); BUN 49 mg/dL (7-18); CO2 23.9 mmol/L (21.0-32.0); CREATININE 1.8 mg/dL (0.70-1.30); Calcium 9.3 mg/dL (8.5-10.1); Chloride 103 mmol/L (98-107); Estimated GFR 39.99 (mL/min/1.73m2); Glucose 191 mg/dL (74-106); Magnesium 1.8 mg/dL (1.8-2.4); PHOSPHORUS 3.9 mg/dL (2.6-4.7); Potassium 4.5 mmol/L (3.5-5.1); Sodium 138 mmol/L (136-145)
== END 2023-01-09 02:10 | disposition home or self-care (01) ==
LOC: LBO 02:09
PROVIDERS: Absent Provider Student in an Organized Health Care Education/Training Program; PCP Student in an Organized Health Care Education/Training Program; Referring Provider Student in an Organized Health Care Education/Training Program; Visit Provider Student in an Organized Health Care Education/Training Program
DX: N18.9 Chronic kidney disease, unspecified (principal); I10 Essential (primary) hypertension; Z91.89 Other specified personal risk factors, not elsewhere classified
CPT/HCPCS: 36415; 80048; 83735; 84100

== ENCOUNTER → 2023-01-26 13:01 | Outpatient (BNVA) | payer MEDICARE, OTHER, SELFPAY | PROVIDERS: PCP Student in an Organized Health Care Education/Training Program; Referring Provider Student in an Organized Health Care Education/Training Program; Visit Provider Surgery | DX: D64.9 Anemia, unspecified (principal); Z86.010 Personal history of colon polyps; Z79.01 Long term (current) use of anticoagulants; Z79.4 Long term (current) use of insulin; I25.10 Atherosclerotic heart disease of native coronary artery without angina pectoris; N18.30 Chronic kidney disease, stage 3 unspecified | CPT/HCPCS: 99203; 99214 ==

== ENCOUNTER 2023-02-05 07:39 | Day surgery (SDC) | payer MEDICARE, OTHER, SELFPAY ==
--- NOTE | 2023-02-04 19:49 | PDOC.DSDIS_ITS ---
Date of service: 02/05/23 Time of Service: 09:18 Discharge Plan Disposition Patient Disposition: Home Condition: Good Discharge Details Reason For Visit: Diagnositic colonoscopy Attending Provider: Denzel Medeiros Primary Care Provider: Clare Medley Home Meds and New Rx's Prescriptions: Continued ammonium lactate 12 % lotion 1 applic topical BID Qty: 400 1RF Rx Instructions: Trial for excoriated dry skin of arms insulin glargine [Lantus Solostar U-100 Insulin] 100 unit/mL (3 mL) insulin pen 55 unit Sub-Q QPM Rx Instructions: Or as directed for dx: E11.65 nitroglycerin 0.4 mg tablet, sublingual 0.4 mg sublingual Q5-15M PRN Rx Instructions: do not exceed 3 doses per episode (DME) FreeStyle Bahman 2 [place] Misc See Rx Instructions .ROUTE .MEDSUPPLY Qty: 1 0RF Rx Instructions: As directed ciclopirox 8 % solution 1 applic topical DAILY 90 Days Qty: 6.6 0RF aspirin 81 mg tablet,delayed release (DR/EC) 81 mg PO DAILY Patient Comments: 06/02/19-replaces 325mg. daily dose. [facility] [place] discharge note. JOBY Mchugh (DME) lancets [FreeStyle Lancets] 28 gauge misc See Rx Instructions .ROUTE .MEDSUPPLY Qty: 400 3RF Rx Instructions: to test BS 4X daily for DM/E11.9 and to keep A1c at or under 7.0% (DME) pen needle, diabetic [BD Ultra-Fine Amber Pen Needle] 32 gauge x 5/32 needle 1 ea Miscellaneous QID Qty: 400 3RF Rx Instructions: E11.65 to administer insulin 4x/day (DME) Blood Glucose Test Strip See Rx Instructions .MEDSUPPLY Qty: 400 3RF Rx Instructions: As directed to check blood glucose four times daily. On insulin. Dispense covered brand. nitroglycerin 0.4 mg tablet, sublingual 0.4 mg SL Q5M PRN (Reason: chest pain) Qty: 90 2RF Rx Instructions: Take 1 at onset of chest pain, may repeat x2 q5 min if pain continues. losartan 25 mg tablet See Rx Instructions .ROUTE .COMPLEX Qty: 90 3RF Dose Instruction: TAKE 1 TABLET AT BEDTIME FOR DIABETES, AND TO PROTECT KIDNEYS Rx Instructions: TAKE 1 TABLET AT BEDTIME FOR DIABETES, AND TO PROTECT KIDNEYS Myrbetriq 50 mg tablet extended release 24 hr 50 mg PO DAILY Qty: 90 3RF fenofibrate nanocrystallized [Tricor] 145 mg tablet 145 mg PO DAILY Qty: 90 3RF amlodipine 10 mg tablet 10 mg PO DAILY Qty: 90 3RF Rx Instructions: Blood pressure & Heart health metoprolol tartrate 25 mg tablet 25 mg PO BID Qty: 180 3RF Rx Instructions: Heart insulin aspart U-100 [Novolog FlexPen U-100 Insulin] 100 unit/mL (3 mL) insulin pen See Rx Instructions .ROUTE .COMPLEX Qty: 90 3RF Dose Instruction: INJECT 10 TO 30 UNITS BEFORE MEALS PER MEALTIME CORRECTION SCHEDULE Rx Instructions: INJECT 10 TO 30 UNITS BEFORE MEALS PER MEALTIME CORRECTION SCHEDULE rosuvastatin 40 mg tablet See Rx Instructions .ROUTE .COMPLEX Qty: 90 3RF Dose Instruction: TAKE 1 TABLET DAILY Rx Instructions: TAKE 1 TABLET DAILY Jardiance 25 mg tablet See Rx Instructions .ROUTE .COMPLEX Qty: 90 3RF Dose Instruction: TAKE 1 TABLET EVERY MORNING Rx Instructions: TAKE 1 TABLET EVERY MORNING (DME) FreeStyle Bahman 2 Sensor Kit See Rx Instructions .ROUTE .MEDSUPPLY Qty: 2 11RF Rx Instructions: As directed levothyroxine 50 mcg tablet 50 mcg PO DAILY Qty: 90 1RF Rx Instructions: Thyroid cholecalciferol (vitamin D3) 125 mcg (5,000 unit) capsule 125 mcg PO DAILY Qty: 90 1RF Rx Instructions: Trial Vit D supplementation Held Eliquis 5 mg tablet 5 mg PO BID Qty: 180 3RF Hold Instructions: Resume on 02/06/23. Discontinued bisacodyl 5 mg tablet,delayed release (DR/EC) 5 mg PO ONCE Qty: 4 0RF Rx Instructions: Per Colonoscopy bowel prep instructions polyethylene glycol 3350 17 gram/dose powder 238 g PO ONCE Qty: 238 0RF Rx Instructions: For Colonoscopy bowel prep, as directed by office Discharge Instructions Instructions: Hemorrhoids (GEN), Colorectal Polyps (GEN) Additional Instructions: Minh, we were able to complete your colonoscopy today. I did find several polyps. In fact, I removed a total of 6 polyps. They ranged in size from multiple large. I removed them all completely. These could certainly be the source of chronic anemia. You also have internal hemorrhoids. Your hemorrhoids are fairly large, and although they can cause anemia, if they were the source, I would expect you to have more obvious bleeding associated with your bowel movements. Regardless, I have attached some information here regarding hemorrhoids as well as colon and rectal polyps. It will take a little bit of time for me to get the report from the polyp analysis. Once I have that information I will be in touch. I would like you to hold your Eliquis again all throughout today, and you can restart it tomorrow. 1. If tolerated, consume a soft, low fiber diet for 1-2 days. 2. Do not drive, drink alcohol, operate machinery, make critical decisions, or do activities that require coordination or balance for 24 hours. 3. Because air was put into your colon during the procedure, expelling air from your rectum (passing gas or farting) is normal. 4. You may not have a bowel movement for 1-3 days because of the colonoscopy prep. This is normal. 5. Go directly to the emergency room if you notice any of the following: Develop chills (warm to touch), or if you have a thermometer and your temperature is above 101 Difficulty breathing or difficultly swallowing Persistent vomiting Severe abdominal pain, other than gas cramps Severe chest pain Black, tarry stools Any bleeding ? exceeding one tablespoon 6. Call your physician if the site where your intravenous was started becomes red, swollen, painful, and warm to touch. 7. Your physician has reviewed your pre-procedure medications. Please continue to take those medications as previously ordered. You will be given specific information/education regarding any changes to your medications before leaving. Activity:: Activity as Tolerated Diet:: As Tolerated Discharge Orders Discharge Orders: Discharge Order (Routine); Ordered 02/04/23 Ordered By: Denzel Medeiros DS: Diagnosis Discharge Diagnosis (1) Anemia: Status: Chronic Asessment and Plan: We will follow-up on polypectomy results
--- NOTE | 2023-02-04 19:52 | W.COLOREPORT ---
Date of service: 02/05/23 Time of Service: 09: Colonoscopy Report Date of procedure: 02/05/23 Pre-op diagnosis general: Anemia Post-op diagnosis procedure note: other (Internal hemorrhoids, colon polyps) Procedure: Colonoscopy with polypectomy Surgeon: Denzel Medeiros Anesthesia Type: General:No Airway Estimated blood loss (mL): 10 Pathology: other (Cecal polyps x2, colon polyps at 90, 80, 70, and 45 cm from the anal verge) Complications: None Disposition: same day Indications: Minh is 72 years old with anemia of uncertain etiology. he is undergoing diagnostic colonoscopy Prep: Miralax/Dulcolax Procedure Start Time: 08:50 Procedure End Time: :08 Retraction Time: 13 Findings: Grade 1 internal hemorrhoids; centimeters cecal polyp, 0.25 cm cecal polyp, 0.25 cm polyp at 90 cm, 0.25 cm polyp at 80 cm, 0.25 cm polyp at 70 cm, 0.5 cm polyp at 45 cm Procedure Description: After the induction of monitored anesthetic care, and with the patient in left lateral decubitus position, I began by performing an external anorectal exam.? Perineum and skin were normal, as was the anal verge.? There was no evidence of external hemorrhoids.? Next, I performed a digital rectal exam.? I did ask appreciate any abnormal findings.? Next, I advanced a colonoscope into the rectal vault.? I performed retroflexion.? There are grade 1 internal hemorrhoids. There is no stigmata of recent bleeding here.? Using insufflation, I then advanced the colonoscope beyond the rectal folds and into the sigmoid colon before advancing towards the cecum.? The quality of the prep was excellent.? The scope was noted to be in the cecum by identification of the ileocecal valve and appendiceal orifice. Within the cecum was 2 sessile polyps. One was approximately 0.75 cm and a bit longitudinal along one of the haustra. The other was less than 0.25 cm and was quite circular. I removed these both with multiple bites using cold forceps polypectomy. There was minimal bleeding from the sites. I then began withdrawing the colonoscope using repeated irrigation as necessary for full evaluation of the colonic mucosa. I found polyps at 90 cm, 80 cm, 70 cm, and 45 cm from the anal verge. These ranged in size from 0.25 cm to 0.5 cm. All of these were sessile. I removed these all with cold forceps with minimal bleeding. Once the scope was withdrawn to the level of the rectum, great care was taken to examine portions of the rectal folds.? Finally, the scope was withdrawn and the patient was brought to the same-day surgery recovery unit as the anesthetic wore off. ?The findings and instructions were shared with the patient prior to discharge.
--- NOTE | 2023-02-05 06:02 | ANES.PREOP_ITS ---
General Info Date of Service Date Performed: 02/05/23 Height: 5 ft 10 in Weight: 136.078 kg Body Mass Index (BMI): 43.0 Surgical Procedure: Operation Date: 02/05/23 09:05 Proposed Procedure Side Surgeon angeles Medeiros MD Meds Allergies and Home Medications Allergies Allergy/AdvReac Type Severity Reaction Status Date / Time No Known Allergies Allergy Verified 02/05/23 08:03 Home Medication Medication Instructions Recorded aspirin 81 mg tablet,delayed 81 mg PO DAILY 06/02/19 release lancets 28 gauge (FreeStyle #400 ea 02/11/21 Lancets) pen needle, diabetic 32 gauge x #400 ea 03/25/21 (BD Ultra-Fine Amber Pen Needle) flash glucose scanning reader #1 ea 11/17/21 (FreeStyle Bahman 2 [place]) blood sugar diagnostic (Blood #400 ea 12/13/21 Glucose Test strips) nitroglycerin 0.4 mg sublingual 0.4 mg sublingual Q5M PRN chest 01/10/22 tablet pain #90 tabs losartan 25 mg tablet See Rx Instructions .Route 05/19/22 .COMPLEX #90 tabs mirabegron 50 mg tablet,extended 50 mg PO DAILY #90 tabs 06/02/22 release 24 hr (Myrbetriq) amlodipine 10 mg tablet 10 mg PO DAILY #90 tabs 06/09/22 fenofibrate nanocrystallized 145 145 mg PO DAILY #90 tab-caps 06/09/22 mg tablet (Tricor) metoprolol tartrate 25 mg tablet 25 mg PO BID #180 tab-caps 06/09/22 apixaban 5 mg tablet (Eliquis) 5 mg PO BID #180 tabs 06/23/22 ammonium lactate 12 % lotion 1 applic topical BID #400 grams 06/24/22 insulin aspart U-100 100 unit/mL See Rx Instructions .Route 06/30/22 (3 mL) subcutaneous pen (Novolog .COMPLEX #90 mL FlexPen U-100 Insulin aspart) rosuvastatin 40 mg tablet See Rx Instructions .Route 10/22/22 .COMPLEX #90 tabs empagliflozin 25 mg tablet See Rx Instructions .Route 11/01/22 (Jardiance) .COMPLEX #90 tabs flash glucose sensor (FreeStyle #2 ea 11/27/22 Bahman 2 Sensor kit) ciclopirox 8 % topical solution 1 applic topical DAILY 3 months 12/09/22 #6.6 mL levothyroxine 50 mcg tablet 50 mcg PO DAILY #90 tab-caps 12/23/22 cholecalciferol (vitamin D3) 125 125 mcg PO DAILY #90 caps 01/06/23 mcg (5,000 unit) capsule insulin glargine 100 unit/mL (3 55 unit subcut QPM 01/26/23 mL) subcutaneous pen (Lantus Solostar U-100 Insulin) nitroglycerin 0.4 mg sublingual 0.4 mg sublingual Q5-15M PRN 01/26/23 tablet Current Visit Medications: Current Medications Generic Name Dose Route Start Last Admin Trade Name Freq PRN Reason Stop Dose Admin Hyoscyamine Sulfate 0.125 mg 02/04/23 19:53 Hyoscyamine 0.125 Mg Sl/Oral/Chew SL 03/06/23 19:52 DIRECTED PRN Ringer's Solution 1,000 mls @ 80 mls/hr 02/05/23 06:00 IV 03/06/23 23:59 INFUSION [facility] IV Miscellaneous Supplies 1 each 02/05/23 06:00 Iv Access IV 03/06/23 23:59 DIRECTED ZEE Ondansetron HCl 4 mg 02/04/23 19:53 Ondansetron 4 Mg/2 Ml Vial IVP 03/06/23 19:52 Q4H PRN PRN Nausea / Vomiting Sodium Chloride 0 ml 02/05/23 06:00 Normal Saline Flush 10 Ml Syr IV 03/06/23 23:59 PRN PRN Sodium Chloride 0 ml 02/05/23 06:00 Normal Saline 10 Ml Vial IJ 03/06/23 23:59 DIRECTED PRN Sterile Water 0 ml 02/05/23 06:00 Water,Injection,Sterile 10 Ml Vial IJ 03/06/23 23:59 DIRECTED PRN PFSH Active Problems Active Problems: Problem Status Onset Code Anemia D64.9 Epiretinal membrane ~01/2023 H35.379 Arthritis of both knees M19.90 MERRITT (obstructive sleep apnea) G47.33 Current use of insulin Z79.4 Acquired hypothyroidism 10/28/16 E03.9 Cervical disc disorder with myelopathy M50.00 Essential hypertension 01/31/13 I10 Hyperlipidemia 08/17/12 E78.5 Obesity E66.9 Cardiomegaly I51.7 Coronary artery disease I25.10 CKD (chronic kidney disease), stage III N18.3 Overactive bladder N32.81 Atrial fibrillation I48.91 Uncontrolled diabetes mellitus E11.65 Diabetes mellitus with neuropathy E11.40 Dizziness R42 Slow heart rate R00.1 Keeps losing balance R26.89 Unsteady gait R26.81 Ataxia R27.0 Asymmetrical sensorineural hearing loss H90.3 Cognitive impairment R41.89 Nail dystrophy L60.3 Foot pain M79.673 Edema R60.9 Onychomycosis B35.1 Tinea pedis B35.3 Osteoarthritis of right knee M17.11 Hx of iron deficiency anemia Z86.2 Fatigue R53.83 Metatarsalgia of left foot M77.42 Pain of right great toe M79.674 History of kidney injury Z87.828 Low vitamin D level R79.89 Blisters of multiple sites ~01/13/23 R23.8 Medical History Medical History Abnormal nuclear stress test Abrasion of skin of right lower leg Acute medial meniscus tear of right knee Bursitis of shoulder, right, adhesive (04/06/15) Chronic and recurrent low back pain L4-[address] scan in 1993, recurrent since then intermittently. 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 Hypothyroidism Kidney stone calcium oxylate Knee contusion Left ankle sprain Low back pain L4-[address] Maisonneuve fracture of left fibula (05/07/16) Nicotine dependence Cessated Pipe smoker SARS-CoV-2 positive (~04/2021) Sensorineural hearing loss, bilateral (02/15/15) No hearing aids Tendinitis of right shoulder Umbilical hernia Recurrent x 2, repaired x 3. Surgical History Surgical History Appendectomy Colonoscopy - IV Sedation Extraction of cataract 11/23/14; DR. GOINS; RIGHT EYE 12/07/14; DR. GOINS; LEFT EYE Fracture, Open Treatment ORIF-LEFT SYNDESMOSIS WITH TWO SCREWS History of cataract removal with insertion of prosthetic lens (11/23/14) History of umbilical hernia repair Repair of umbilical hernia S/P cardiac catheterization (05/31/19) 2020 Status post appendectomy Status post coronary artery bypass with autogenous graft, 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) 2017 Status post coronary artery stent placement (09/26/16) One vessel for unstable angina Tobacco Smoking/Tobacco Use Status: Former Tobacco Use Alcohol Alcohol Intake: current Alcohol intake frequency: a few times a week Alcohol type: beer and hard liquor Counseling provided: reduce to 2 or less/day Details: 3-5 nights/wk drinks shot of hard liquor and multiple beers (3) Substance Use Substance use: Never Substance use type: does not use Vital Signs and Lab Results Vital Signs Most Recent Vital Signs in EMR: Temp Pulse Resp BP Pulse Ox 36.4 C L 51 L 17 124/62 98 02/05/23 08:17 02/05/23 08:17 02/05/23 08:17 02/05/23 08:17 02/05/23 08:17 Lab Results Blood Type / Crossmatch: No Data to Display Complete Blood Count: No Data to Display Complete Metabolic Panel: Sodium 138 mmol/L (136-145) 01/09/23 11:18 Potassium 4.5 mmol/L (3.5-5.1) 01/09/23 11:18 Chloride 103 mmol/L (98-107) 01/09/23 11:18 Carbon Dioxide 23.9 mmol/L (21.0-32.0) 01/09/23 11:18 BUN 49 mg/dL (7-18) H 01/09/23 11:18 Creatinine 1.8 mg/dL (0.70-1.30) H 01/09/23 11:18 Est GFR (CKD-EPI 2020) 39.99 (mL/min/1.73m2) 01/09/23 11:18 Magnesium 1.8 mg/dL (1.8-2.4) 01/09/23 11:18 Calcium 9.3 mg/dL (8.5-10.1) 01/09/23 11:18 Glucose 191 mg/dL (74-106) H 01/09/23 11:18 Liver Function Panel: No Data to Display Coagulation Panel: No Data to Display Cardiac Panel: No Data to Display Arterial Blood Gas: No Data to Display Venous Blood Gas: No Data to Display Pancreas Panel: No Data to Display Thyroid Panel: No Data to Display Infectious Disease: No Data to Display Blood Cultures: No Data to Display Toxicology Panel: No Data to Display Imaging and Studies Imaging and Studies Study information below may be from another EMR and interpreted by another provider. Please see original notes in EMR for more complete details. EKG Summary: Conclusion Bradycardia with irregular rate...V-rate 42- 59, mean < 60 Prolonged WY interval...WY >220, V-rate 50- 90 RBBB and LAFB...QRSd >120mS, axis(-40,240) 10/18/21 Stress Test Summary: Stress ECG Conclusion 1. The resting electrocardiogram showed right bundle branch block, left anterior fascicular block 2. Patient exercised on the Hermann protocol and completed a workload of 5.15 METS, stopping due to dyspnea 3. Blunted heart rate and blood pressure response to exercise. The patient achieved 75% of predicted heart rate for age 4. Electrocardiographically the test was nondiagnostic due to inadequate heart rate 5. Atrial premature beats were reported [place] O Treadmill Score is 4.1 which is Moderate risk. 07/17/20 MPI Conclusion The ejection fraction was 41% with stress. There is hypokinesis of the apex. There is a moderate sized fixed perfusion defect encompassing the entire apex. 07/23/20 Echocardiogram Summary: EF 40%, mild to mod MR, mild WY 12/11/22 Pulmonary Function Summary: IMPRESSION: Mild defusion defect, which is normal when corrected to alveolar volume in combination with very low ERV, it may be related to chest wall restriction from underlying obesity and hypoventilation. Clinical correlation recommended. 08/10/13 Anesthesia Assessment and Plan Anesthesia History Personal History: No History of Anesthesia Complications Family History: No Family History of Anesthesia Complications Exercise Tolerance Exercise Tolerance: Metabolic Equivalents<4 Pertinent Negatives Pertinent Negatives: No Major Cardiovascular Symptoms or Complaints and No Major Pulmonary Symptoms or Complaints Cardiac & Pulmonary Exam Cardiac Exam: Normal S1/S2 Heart Sounds Pulmonary Exam: Clear Bilateral Breath Sounds Implantable Cardiac Device Does patient have a Pacemaker or an ICD?: No Airway Exam Known Difficult Airway: No Mallampati Class: 3 Mouth Opening: Normal (> 3cm) Thyromental Distance: Greater than 3 cm Neck Range of Motion: Full ROM Neck Circumference: Thick Teeth Condition: Normal Dentition ASA Classification ASA Score: ASA 3 Emergency Case?: No NPO Status NPO Status: NPO Clears >2 hours, Solids >8 hours Anesthesia Plan Resuscitation Status: Full Code Anesthesia Technique: General Anesthesia Airway Planned: Natural Airway Monitors Used: Standard Monitors Preoperative Comments:: Cardiac Medical History: CAD, Paroxysmal A fib, Obesity, DM II, Neuropathy, HTN, Tobacco use, HLD, MERRITT w/ BiPAP. Cardiac Procedures: CABG (2016), PCI (2019) 07/[address] Willingham, re: infrequent atypical chest pain, I do not think he requires testing in this regard at present
[2023-02-05] MEDS: Lactated Ringers 1,000 ML 80 ML IV (08:15)
[2023-02-05 08:17] VITALS: BP 124/62; PULSE 51; RESP 17; TEMP 36.4; O2SAT 98
[2023-02-05 08:33] VITALS: BMI 43.0
--- NOTE | 2023-02-05 08:51 | BOWEL_PTH ---
PATIENT: Olaf Still LOC: [facility] U#:[id number] AGE/SX: 72/M ROOM: RE02/05/[address]: Denzel Medeiros MD : 1950 BED: DIS: 02/05/2023 SPEC #: [id number] RECD: 02/05/23 12:26 STATUS: CRISTÓBAL RE #: [id number] AINSLEY: 02/05/23 08:[address]: Denzel Medeiros DEPT: Surgical Specimen RECD BY: Maura Cameron ENTERED: 02/05/23 12:28 SP TYPE: Bowel OTHR DR: Clare Medley DO Tissues: 1 - BIOPSY BOWEL 2 - BIOPSY BOWEL 3 - BIOPSY BOWEL 4 - BIOPSY BOWEL 5 - BIOPSY BOWEL Procedures: GROSS AND MICRO LEVEL 4 Comments: [id number]
[2023-02-05 09:17] VITALS: BP 113/55; PULSE 55; RESP 17; TEMP 36.4; O2SAT 92
[2023-02-05 09:40] VITALS: BP 128/55; PULSE 51; RESP 17; TEMP 36.3; O2SAT 98
--- NOTE | 2023-02-05 10:12 | W.ANESPOSTOP ---
Postoperative Evaluation Date, Time and Location Date Performed: 02/05/23 Time Performed: 09:33 Patient Location: Day Surgery Unit Vital Signs Most Recent Imported Vital Signs: Most Recent Vital Signs Temp Pulse Resp BP Pulse Ox 36.3 C L 51 L 17 128/55 L 98 02/05/23 09:40 02/05/23 09:40 02/05/23 09:40 02/05/23 09:40 02/05/23 09:40 Pain Score Most Recent Pain Score: Most Recent Pain Score Pain Level 0 02/05/23 09:40 Assessment Mental Status: Awake (Alert & Oriented to Patient Baseline) Airway and Respiratory Function: Patent airway with normal (patient baseline) respiratory exam Cardiovascular Function: Hemodynamically Stable Hydration Status: Adequately Hydrated Nausea & Vomiting: No Nausea or Vomiting Pain: Pt. Denies Any Pain Peripheral Nerve Block: Patient did not receive a nerve block
== END 2023-02-05 10:23 | disposition home or self-care (01) ==
PROVIDERS: PCP Student in an Organized Health Care Education/Training Program; Visit Provider Surgery
PROC: 0DJD8ZZ Inspection of Lower Intestinal Tract, Via Natural or Artificial Opening Endoscopic (ICD-10-PCS; CPT 45378; principal; 2023-02-05 09:00)
DX: D64.9 Anemia, unspecified (principal); D12.0 Benign neoplasm of cecum; K64.0 First degree hemorrhoids; D12.3 Benign neoplasm of transverse colon; D12.4 Benign neoplasm of descending colon
CPT/HCPCS: 45380; 88305; J2001

== ENCOUNTER 2023-03-06 02:59 | Outpatient (CLI) | payer MEDICARE, OTHER, SELFPAY ==
[2023-03-06 13:14] LABS: HGB 12.8 g/dL (13.5-17.5)
[2023-03-06 14:05] LABS: Iron 78 ug/dL (65-175); Total Iron Binding Capacity 399 ug/dL (250-450); Transferrin Sat 20 % (20-55)
[2023-03-06 14:18] LABS: Anion Gap 13.9 mmol/L (3-11); BUN 40 mg/dL (7-18); CO2 21.1 mmol/L (21.0-32.0); CREATININE 1.5 mg/dL (0.70-1.30); Calcium 9.1 mg/dL (8.5-10.1); Chloride 105 mmol/L (98-107); Estimated GFR 49.77 (mL/min/1.73m2); Ferritin 170 ng/mL (26-388); Glucose 206 mg/dL (74-106); Potassium 4.8 mmol/L (3.5-5.1); Sodium 140 mmol/L (136-145)
== END 2023-03-06 03:00 | disposition home or self-care (01) ==
PROVIDERS: PCP Student in an Organized Health Care Education/Training Program; Visit Provider Student in an Organized Health Care Education/Training Program
DX: N18.31 Chronic kidney disease, stage 3a (principal); Z86.2 Personal history of diseases of the blood and blood-forming organs and certain disorders involving the immune mechanism; Z87.828 Personal history of other (healed) physical injury and trauma
CPT/HCPCS: 36415; 80048; 82728; 83540; 83550; 85018

== ENCOUNTER → 2023-04-01 12:49 | Outpatient (BNVA) | payer MEDICARE, OTHER, SELFPAY | PROVIDERS: PCP Student in an Organized Health Care Education/Training Program; Visit Provider Nurse Practitioner Gerontology | DX: N40.1 Benign prostatic hyperplasia with lower urinary tract symptoms (principal); N32.81 Overactive bladder | CPT/HCPCS: 51798; 99213 ==

== ENCOUNTER 2023-04-03 08:39 | Emergency (ER) | payer MEDICARE, OTHER, SELFPAY ==
[2023-04-03] VITALS (27 sets, daily range): BP systolic 103–168; BP diastolic 39–118; PULSE 0–74; RESP 12–36; TEMP 37; O2SAT 91–98
--- NOTE | 2023-04-03 08:30 | RT.EKG_ITS ---
APPROVED REPORT Exam: Resting ECG Reason for Exam: Chest pain Patient Location: E HR:67 bpm ECG Measurements Heart Rate 67 AXIS LA [id number] P [id number] QRSd 161 QRS -63 QT 462 T 106 QTc 489 Conclusion Atrial fibrillation 67 no acute ischemic change
--- NOTE | 2023-04-03 09:00 | DI.RAD_ITS ---
Exam(s) XR CHEST 2V PA LATERAL EXAM: XR CHEST 2V PA LATERAL CLINICAL HISTORY: sob TECHNIQUE: 2D digital imaging was performed of the chest. Two images were obtained. PA and lateral views were obtained. COMPARISON: CR,XR XR CHEST 2V PA LATERAL from 05/29/2019 FINDINGS: MEDIASTINUM: Normal. HEART: Cardiomegaly. PULMONARY VASCULATURE: Normal. LUNGS: Clear. PLEURAL SPACE: No pleural effusion or pneumothorax. BONE:Within normal limits for the patient's age. OTHER FINDINGS:Normal. IMPRESSION: No acute pulmonary findings. DATA REPOSITORY: RADIATION DOSE DELIVERED:
[2023-04-03 09:31] LABS: Abs Immature Grans 0.09 10^3/uL (0.0-0.06); HCT 37.3 % (40.0-50.0); HGB 12.3 g/dL (13.5-17.5); MCH 32.5 pg (27.0-33.0); MCV 98 fL (80-95); MPV 10.9 fL (8.0-11.0); Platelet Count 233 10^3/uL (130-400); RBC 3.79 10^6/uL (4.36-5.78); RDW 12.9 % (11.8-14.1); RDW-SD 46.5 fL; WBC 17.82 10^3/uL (4.4-10.8)
[2023-04-03 09:47] LABS: ALT 19 U/L (16-63); AST 26 U/L (15-37); Albumin 3.4 g/dL (3.4-5.0); Alkaline Phosphatase 44 U/L (46-116); Anion Gap 8.1 mmol/L (3-11); BUN 23 mg/dL (7-18); Bilirubin, Total 0.8 mg/dL (0.2-1.0); CO2 25.9 mmol/L (21.0-32.0); CREATININE 1.6 mg/dL (0.70-1.30); Calcium 8.8 mg/dL (8.5-10.1); Chloride 103 mmol/L (98-107); Estimated GFR 46.06 (mL/min/1.73m2); Glucose 175 mg/dL (74-106); NT-proBNP 8795 pg/mL (<300); Potassium 4.7 mmol/L (3.5-5.1); Sodium 137 mmol/L (136-145); Total Protein 7.3 g/dL (6.4-8.2); Troponin I < 50 ng/L (<or=60)
[2023-04-03 09:50] LABS: Absolute Basophil Count 0.53 10^3/uL (0.0-0.2); Absolute Eosinophil Count 0.18 10^3/uL (0.0-0.7); Absolute Lymphocyte Count 1.25 10^3/uL (1.2-3.4); Absolute Monocyte Count 0.89 10^3/uL (0.1-0.8); Absolute Neutrophil Count 14.97 10^3/uL (1.2-6.7); Diff Comment Manual Differential; RBC Morphology Normal
--- NOTE | 2023-04-03 10:48 | W.PM.HP.N ---
Date of service: 04/03/23 Time of Service: 10:50 Assessment and Plan Assessment and plan (1) Acute exacerbation of congestive heart failure: Status: Acute Assessment and plan: - Patient being admitted for an acute exacerbation congestive heart failure, systolic as he is experienced significant increase in exertional dyspnea -proBNP greater than 8000 -Recently discontinued using Lasix -Was administered 80 mg IV Lasix in the emergency department -We will continue 40 mg IV Lasix twice daily -Strict I's and O's, daily weights Qualifiers: Heart failure type: systolic Qualified Code(s): I50.23 - Acute on chronic systolic (congestive) heart failure (2) MERRITT (obstructive sleep apnea): Status: Chronic Assessment and plan: - Continue CPAP use during hospitalization (3) Acquired hypothyroidism: Status: Chronic Assessment and plan: - Continue home levothyroxine 15 mcg daily (4) Essential hypertension: Status: Chronic Assessment and plan: - Continue home losartan and amlodipine (5) Hyperlipidemia: Status: Chronic Assessment and plan: -Continue home rosuvastatin Qualifiers: Hyperlipidemia type: mixed hyperlipidemia Qualified Code(s): E78.2 - Mixed hyperlipidemia (6) Obesity: Status: Chronic Assessment and plan: - Recommend ongoing weight loss discussions with PCP Qualifiers: Obesity type: due to excess calories Obesity classification: adult class 3 (BMI >= 40) Serious obesity comorbidity presence: with serious comorbidity Body mass index: BMI 40.0-44.9 Qualified Code(s): E66.01 - Morbid (severe) obesity due to excess calories; Z68.41 - Body mass index [BMI]40.0-44.9, adult (7) Coronary artery disease: Status: Chronic Assessment and plan: - Continue home losartan, p.o. Lopressor, rosuvastatin,. Nitroglycerin Qualifiers: Coronary Disease-Associated Artery/Lesion type: unspecified vessel or lesion type [place] vs. transplanted heart: unspecified whether [place] or transplanted heart Associated angina: with unstable angina Qualified Code(s): I25.110 - Atherosclerotic heart disease of [place] coronary artery with unstable angina pectoris (8) CKD (chronic kidney disease), stage III: Status: Chronic Assessment and plan: - Baseline creatinine 1.6 -We will continue to monitor in the setting of diuresis Qualifiers: Chronic kidney disease stage 3 subtype: stage 3a (GFR 45-59) Qualified Code(s): N18.31 - Chronic kidney disease, stage 3a (9) Atrial fibrillation: Status: Chronic Assessment and plan: - Continue home metoprolol and Eliquis Qualifiers: Atrial fibrillation type: unspecified chronic Qualified Code(s): I48.20 - Chronic atrial fibrillation, unspecified History of Present Illness History of Present Illness Chief Complaint: Exertional shortness of breath Narrative: 9-year-old male with past medical history of CKD, IDDM, urge incontinence, coronary artery disease status post CABG, HFpEF, presents to the emergency department with complaints of exertional shortness of breath. Patient states that over the last few days he has been experiencing progressively worsening exertional shortness of breath. He had been on Lasix but it was discontinued due to presumed increase in creatinine. However, patient was coming to the hospital today for outpatient imaging and had significantly increased shortness of breath with ambulation and prompted him to present to the emergency department. He denies any lightheadedness, dizziness, chest pain, cough, fever, nausea or vomiting. In the emergency department the patient was noted to have a heart rate of 60, blood pressure of 151/48, respiratory rate of 23 and an oxygen saturation of 93% on room air. CBC was notable for leukocytosis with white blood cell count of 17, remainder of CBC and CMP were unremarkable with creatinine being baseline at 1.6. However, patient did have a proBNP of greater than 8000. Which time emergency room physician paged hospitalist for admission for patient with acute exacerbation of HFpEF requiring IV diuresis and close monitoring of kidney function. PFSH All Active Problems (Updated 04/03/23 @ 10:57 by Doe Martin MD) Acute exacerbation of congestive heart failure (Acute) Stopped smoking with greater than 20 pack year history (Chronic) Lung CT Screening, 07/16/20 Tubular adenoma of colon (Acute ~02/2023) Anemia (Chronic) Epiretinal membrane (Acute ~01/2023) right eye Arthritis of both knees (Chronic) MERRITT (obstructive sleep apnea) (Chronic) Bi-PAP 07/23/19 Current use of insulin (Chronic) Acquired hypothyroidism (Chronic 10/28/16) High TSH, but WNL T4 (2021) .. re-checking Cervical disc disorder with myelopathy (Acute) right arm Essential hypertension (Chronic 01/31/13) Hyperlipidemia (Chronic 08/17/12) Obesity (Chronic) Cardiomegaly (Acute) CXR; ECHO 05/2019 [facility] [place]--LVEF 53%, +LVH (mild), no significant valvular disease; stable compared with 2017 study Coronary artery disease (Chronic) 3-vessel (LAD, LCX, RCA) CKD (chronic kidney disease), stage III (Chronic) Overactive bladder (Acute) Myrbetriq started [ ] ... Oxybutynin, discontinued 06/24/19 in favor of optimizing DMT2 management Atrial fibrillation (Chronic) Apixaban 06/22/2019 Uncontrolled diabetes mellitus (Acute) IMPROVED since CGM! and diet improvements. Mtg with nutrition team. Goal </=7.5% Diabetes mellitus with neuropathy (Chronic) Reduced monofilament 06/24/2019 Goal A1C 7.5% or less Dizziness (Acute) Slow heart rate (Acute) Keeps losing balance (Acute) Unsteady gait (Acute) Ataxia (Acute) Asymmetrical sensorineural hearing loss (Acute) Cognitive impairment (Acute) Forgetting, but using notes/print-outs .. ex(?)- helps .. Nail dystrophy (Acute) Foot pain (Acute) Edema (Acute) Onychomycosis (Acute) Tinea pedis (Acute) Osteoarthritis of right knee (Acute) DEPO MEDROL 08/14/22 Hx of iron deficiency anemia (Acute) Fatigue (Acute) Worsened per pt, affecting ADL .. not just de-conditioning? Metatarsalgia of left foot (Acute) Pain of right great toe (Acute) History of kidney injury (Acute) Seeing Nephrology (quarterly Low vitamin D level (Acute) Very low, 7.9! Blisters of multiple sites (Acute ~01/13/23) 01/13/23 [facility] note- Dr. 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 Chronic and recurrent low back pain L4-[address] scan in 1993, recurrent since then intermittently. Hypomagnesemia (06/22/14) Only 1.0 in the ER today. Pipe smoker Surgical History History of colonoscopy (~02/2023) with Mac S/P cardiac catheterization (05/31/19) 2019 History of cataract removal with insertion of prosthetic lens (11/23/14) History of umbilical hernia repair Status post appendectomy Status post coronary artery stent placement (09/26/16) One vessel for unstable angina Status post coronary artery bypass with autogenous graft, 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) 2016 Repair of umbilical hernia Fracture, Open Treatment ORIF-LEFT SYNDESMOSIS WITH TWO SCREWS Colonoscopy - IV Sedation Extraction of cataract 11/23/14; DR. GOINS; RIGHT EYE 12/07/14; DR. GOINS; LEFT EYE Appendectomy Family History Father Diabetes Dementia Neoplasm PANCREATIC Social History (Updated 04/01/23 @ 11:37 by Sammi Umana, PARI) Smoking/Tobacco Use Status: Former Tobacco Use Quit Date: 01/02/17 Pack-years: 40 Tobacco: How many years used: 40 Quit status: has quit before Smoking risk assessment performed?: Yes Alcohol Intake: current Alcohol Intake frequency: a few times a week Alcohol type: beer and hard liquor Counseling given: Yes Counseling provided: reduce to 2 or less/day Details: 2-3 oz at a time Drug use: Never Substance use type: does not use Adopted: No Caregiver/Support person: No Foster care: No Household members: none and other Details: Cats Housing: house Number of Children: 3 number of grandchildren: 4 Communication Needs: None Do you need help understanding health information?: Rarely Pets and animals: Yes Pets and animals: cat(s) Do you think of yourself as: straight/heterosexual Current gender identity: male What is your relationship status?: How often do you talk on the phone with friends or family?: three or more times per week How often do you get together with friends or relatives?: twice per week Panel score (0-1 are the most socially isolated patients): 1 What type of physical activity do you participate in: other Details: Tredmill Duration: 45-60 minutes/day Frequency: 5-6 times per week Special isi needs: No Seatbelt use: always Helmet use: Yes Helmet use: always Drive intox 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 local intermodal truck driver: No Working smoke detector in home: No Fire extinguisher in home: No Carbon monox detector in home: No Do you feel safe at home: Yes Do you feel safe in your relationship?: Yes Meds Allergies and Home Medications Allergies Allergy/AdvReac Type Severity Reaction Status Date / Time No Known Allergies Allergy Verified 04/03/23 08:50 Home Medications Medication Instructions Recorded Confirmed Type aspirin 81 mg tablet,delayed 81 mg PO DAILY 06/02/19 04/03/23 History release lancets 28 gauge (FreeStyle #400 ea 02/11/21 04/03/23 Rx Lancets) pen needle, diabetic 32 gauge x #400 ea 03/25/21 04/03/23 Rx /32 (BD Ultra-Fine Amber Pen Needle) flash glucose scanning reader #1 ea 11/17/21 04/03/23 Rx (FreeStyle [place] 2 [place]) blood sugar diagnostic (Blood #400 ea 12/13/21 04/03/23 Rx Glucose Test strips) losartan 25 mg tablet See Rx Instructions .Route 05/19/22 04/03/23 Rx .COMPLEX #90 tabs amlodipine 10 mg tablet 10 mg PO DAILY #90 tabs 06/09/22 04/03/23 Rx fenofibrate nanocrystallized 145 145 mg PO DAILY #90 tab-caps 06/09/22 04/03/23 Rx mg tablet (Tricor) metoprolol tartrate 25 mg tablet 25 mg PO BID #180 tab-caps 06/09/22 04/03/23 Rx apixaban 5 mg tablet (Eliquis) 5 mg PO BID #180 tabs 06/23/22 04/03/23 Rx insulin aspart U-100 100 unit/mL See Rx Instructions .Route 06/30/22 04/03/23 Rx (3 mL) subcutaneous pen (Novolog .COMPLEX #90 mL FlexPen U-100 Insulin aspart) rosuvastatin 40 mg tablet See Rx Instructions .Route 10/22/22 04/03/23 Rx .COMPLEX #90 tabs empagliflozin 25 mg tablet See Rx Instructions .Route 11/01/22 04/03/23 Rx (Jardiance) .COMPLEX #90 tabs flash glucose sensor (FreeStyle #2 ea 11/27/22 04/03/23 Rx Bahman 2 Sensor kit) levothyroxine 50 mcg tablet 50 mcg PO DAILY #90 tab-caps 12/23/22 04/03/23 Rx insulin glargine 100 unit/mL (3 55 unit subcut QPM 01/26/23 04/03/23 History mL) subcutaneous pen (Lantus Solostar U-100 Insulin) nitroglycerin 0.4 mg sublingual 0.4 mg sublingual Q5-15M PRN 01/26/23 04/03/23 History tablet nitroglycerin 0.4 mg sublingual 0.4 mg sublingual Q5M PRN chest 03/30/23 04/03/23 Rx tablet pain #90 tabs mirabegron 50 mg tablet,extended 50 mg PO DAILY #90 tabs 04/01/23 04/03/23 Rx release 24 hr (Myrbetriq) Results Labs 04/03/23 09:10 04/03/23 09:10 Labs: Laboratory Results - last 24 hr 04/03/23 04/03/23 04/03/23 09:10 09:10 09:10 WBC 17.82 H RBC 3.79 L Hgb 12.3 L Hct 37.3 L MCV 98 H MCH 32.5 MCHC 33.0 RDW 12.9 Plt Count 233 MPV 10.9 Immature Gran % See Differential Neutrophils % 84.0 Lymphocytes % 7.0 Monocytes % 5.0 Eosinophils % 1.0 Basophils % 3.0 Nucleated RBC % 0.0 Absolute Neutrophils 14.97 H Absolute Lymphocytes 1.25 Absolute Monocytes 0.89 H Absolute Eosinophils 0.18 Absolute Basophils 0.53 H RBC Morphology Normal Sodium 137 Potassium 4.7 Chloride 103 Carbon Dioxide 25.9 Anion Gap 8.1 BUN 23 H Creatinine 1.6 H Est GFR (CKD-EPI 2020) 46.06 Glucose 175 H Calcium 8.8 Total Bilirubin 0.8 AST 26 ALT 19 Alkaline Phosphatase 44 L Troponin I Cancelled < 50 NT-Pro-B Natriuret Pep Cancelled 8795 H Total Protein 7.3 Albumin 3.4 Last Vital Signs Temp 98.6 F 04/03/23 08:46 Pulse 60 04/03/23 10:17 Resp 19 04/03/23 10:20 BP 151/48 H 04/03/23 10:17 Pulse Ox 93 04/03/23 10:11 PAWSS Have you Been Recently Intoxicated or Drunk Within the Last 30 days?: No Have you Ever Experienced Previous Episodes of Alcohol Withdrawal?: No Have you ever Experienced Withdrawal Seizures?: No Have you ever Experienced Delirium Tremens(DT)s?: No Have you ever undergone Alcohol Rehabilitation Treatment (i.e, inpt ot outpatient treatment programs)?: No Have you ever Experienced Blackouts?: No Have you ever Combined Alcohol with other Downers within the last 90 days?: No Have you ever Combined Alcohol with any other Substance of Abuse during the last 90 days?: No Positive Blood Alcohol level on Presentation? [PCS.BAL]: No Evidence of Increased Autonomic Activity (i.e. HR>120, tremor, sweating, agitation, nausea)?: No Result: 0
[2023-04-03] MEDS: Furosemide 100 MG/10 ML VIAL 80 MG IVP (10:49)
--- NOTE | 2023-04-03 11:19 | W.ED.GENAD ---
Discharge Plan Disposition Patient Disposition: Admit to [facility] Condition: Stable Discharge Details Chief Complaint: Chest Pain Clinical Impression: CHF (congestive heart failure) Primary Care Provider: Clare Medley ED Provider: Antonio Yi Home Meds and New Rx's Prescriptions: No Action insulin glargine [Lantus Solostar U-100 Insulin] 100 unit/mL (3 mL) insulin pen 55 unit Sub-Q QPM Rx Instructions: Or as directed for dx: E11.65 nitroglycerin 0.4 mg tablet, sublingual 0.4 mg sublingual Q5-15M PRN Rx Instructions: do not exceed 3 doses per episode (DME) FreeStyle [place] [address] [place] [facility] See Rx Instructions .ROUTE .MEDSUPPLY Qty: 1 0RF Rx Instructions: As directed Myrbetriq 50 mg tablet extended release 24 hr 50 mg PO DAILY Qty: 90 3RF aspirin 81 mg tablet,delayed release (DR/EC) 81 mg PO DAILY Patient Comments: 06/02/19-replaces 325mg. daily dose[place] [facility] [place] JOBY Mchugh (DME) lancets [FreeStyle Lancets] 28 gauge [facility] See Rx Instructions .ROUTE .MEDSUPPLY Qty: 400 3RF Rx Instructions: to test BS 4X daily for DM/E11.9 and to keep A1c at or under 7.0% (DME) pen needle, diabetic [BD Ultra-Fine Amber Pen Needle] 32 gauge x 5/32 needle 1 ea Miscellaneous QID Qty: 400 3RF Rx Instructions: E11.65 to administer insulin 4x/day (DME) Blood Glucose Test Strip See Rx Instructions .MEDSUPPLY Qty: 400 3RF Rx Instructions: As directed to check blood glucose four times daily. On insulin. Dispense covered brand. losartan 25 mg tablet See Rx Instructions .ROUTE .COMPLEX Qty: 90 3RF Dose Instruction: TAKE 1 TABLET AT BEDTIME FOR DIABETES, AND TO PROTECT KIDNEYS Rx Instructions: TAKE 1 TABLET AT BEDTIME FOR DIABETES, AND TO PROTECT KIDNEYS fenofibrate nanocrystallized [Tricor] 145 mg tablet 145 mg PO DAILY Qty: 90 3RF amlodipine 10 mg tablet 10 mg PO DAILY Qty: 90 3RF Rx Instructions: Blood pressure & Heart health metoprolol tartrate 25 mg tablet 25 mg PO BID Qty: 180 3RF Rx Instructions: Heart Eliquis 5 mg tablet 5 mg PO BID Qty: 180 3RF Hold Instructions: Resume on 02/06/23. insulin aspart U-100 [Novolog FlexPen U-100 Insulin] 100 unit/mL (3 mL) insulin pen See Rx Instructions .ROUTE .COMPLEX Qty: 90 3RF Dose Instruction: INJECT 10 TO 30 UNITS BEFORE MEALS PER MEALTIME CORRECTION SCHEDULE Rx Instructions: INJECT 10 TO 30 UNITS BEFORE MEALS PER MEALTIME CORRECTION SCHEDULE rosuvastatin 40 mg tablet See Rx Instructions .ROUTE .COMPLEX Qty: 90 3RF Dose Instruction: TAKE 1 TABLET DAILY Rx Instructions: TAKE 1 TABLET DAILY Jardiance 25 mg tablet See Rx Instructions .ROUTE .COMPLEX Qty: 90 3RF Dose Instruction: TAKE 1 TABLET EVERY MORNING Rx Instructions: TAKE 1 TABLET EVERY MORNING (DME) FreeStyle Bahman 2 Sensor Kit See Rx Instructions .ROUTE .MEDSUPPLY Qty: 2 11RF Rx Instructions: As directed levothyroxine 50 mcg tablet 50 mcg PO DAILY Qty: 90 1RF Rx Instructions: Thyroid nitroglycerin 0.4 mg tablet, sublingual 0.4 mg SL Q5M PRN (Reason: chest pain) Qty: 90 2RF Rx Instructions: Take 1 at onset of chest pain, may repeat x2 q5 min if pain continues. Medical Decision Making Emergent evaluation of shortness of breath. Initial differential includes CHF exacerbation, pneumonia, ACS. Patient is not having any chest pain, he has some signs of volume overload on examination. His EKG is consistent with A-fib which she has a history of. He is on Eliquis. I reviewed the medical record and noted that in December of this year he had an echocardiogram with 40% EF and wall motion abnormalities. Initial plan for lab work, chest x-ray telemetry monitoring initiated. Workup is consistent with a slight leukocytosis, though there there is no obvious sign of infection. He has no anemia. Mild CKD with creatinine 1.6 which seems to be about baseline. His BNP is significantly elevated and is greater than 8000. His troponin is negative. I feel the patient needs diuresis and this should be done in the hospital setting given his CKD to closely monitor his kidney function and symptom improvement. Will give a dose of IV Lasix here in the emergency department. Discussed with the hospitalist and will admit to their service for further management. Medical Records Medical records reviewed: Yes I reviewed the patient's medical records. Lab Data Lab results reviewed: Yes I reviewed the patient's lab results. ECG Data Attestation: I personally reviewed and interpreted this ECG (s) as follows: Prior ECG tracings: available for review Interpretation: Atrial fibrillation 67, no acute ischemic changes HPI General Date/Time Provider Initiated Documentation: 04/03/23 09:14. Limitations to Documentation: no limitations. Information obtained by: patient. HPI Narrative: 72-year-old gentleman with past medical history of CHF, obesity, CKD, diabetes presents for evaluation of shortness of breath. He reports that he has noted for the last 3 days that whenever he gets up and walks around he has significant shortness of breath. No chest pain associated with it. Shortness of breath relieved with rest. This morning came to the hospital for an ultrasound and was so short of breath when he got there that they sent him to the ED for evaluation. He states that his doctor stopped his Lasix a few months ago. He no longer smokes. He has not been ill recently Related Data Home Medications Medication Instructions Recorded Confirmed aspirin 81 mg tablet,delayed 81 mg PO DAILY 06/02/19 04/03/23 release lancets 28 gauge (FreeStyle #400 ea 02/11/21 04/03/23 Lancets) pen needle, diabetic 32 gauge x #400 ea 03/25/21 04/03/23/32 (BD Ultra-Fine Amber Pen Needle) flash glucose scanning reader #1 ea 11/17/21 04/03/23 (FreeStyle [place] [address] [place]) blood sugar diagnostic (Blood #400 ea 12/13/21 04/03/23 Glucose Test strips) losartan 25 mg tablet See Rx Instructions .Route 05/19/22 04/03/23 .COMPLEX #90 tabs amlodipine 10 mg tablet 10 mg PO DAILY #90 tabs 06/09/22 04/03/23 fenofibrate nanocrystallized 145 145 mg PO DAILY #90 tab-caps 06/09/22 04/03/23 mg tablet (Tricor) metoprolol tartrate 25 mg tablet 25 mg PO BID #180 tab-caps 06/09/22 04/03/23 apixaban 5 mg tablet (Eliquis) 5 mg PO BID #180 tabs 06/23/22 04/03/23 insulin aspart U-100 100 unit/mL See Rx Instructions .Route 06/30/22 04/03/23 (3 mL) subcutaneous pen (Novolog .COMPLEX #90 mL FlexPen U-100 Insulin aspart) rosuvastatin 40 mg tablet See Rx Instructions .Route 10/22/22 04/03/23 .COMPLEX #90 tabs empagliflozin 25 mg tablet See Rx Instructions .Route 11/01/22 04/03/23 (Jardiance) .COMPLEX #90 tabs flash glucose sensor (FreeStyle #2 ea 11/27/22 04/03/23 Bahman 2 Sensor kit) levothyroxine 50 mcg tablet 50 mcg PO DAILY #90 tab-caps 12/23/22 04/03/23 insulin glargine 100 unit/mL (3 55 unit subcut QPM 01/26/23 04/03/23 mL) subcutaneous pen (Lantus Solostar U-100 Insulin) nitroglycerin 0.4 mg sublingual 0.4 mg sublingual Q5-15M PRN 01/26/23 04/03/23 tablet nitroglycerin 0.4 mg sublingual 0.4 mg sublingual Q5M PRN chest 03/30/23 04/03/23 tablet pain #90 tabs mirabegron 50 mg tablet,extended 50 mg PO DAILY #90 tabs 04/01/23 04/03/23 release 24 hr (Myrbetriq) Previous Rx's Medication Instructions Recorded lancets 28 gauge (FreeStyle #400 ea 02/11/21 Lancets) pen needle, diabetic 32 gauge x #400 ea 03/25/2132 (BD Ultra-Fine Amber Pen Needle) flash glucose scanning reader #1 ea 11/17/21 (FreeStyle [place] [address] [place]) blood sugar diagnostic (Blood #400 ea 12/13/21 Glucose Test strips) losartan 25 mg tablet See Rx Instructions .Route 05/19/22 .COMPLEX #90 tabs amlodipine 10 mg tablet 10 mg PO DAILY #90 tabs 06/09/22 fenofibrate nanocrystallized 145 145 mg PO DAILY #90 tab-caps 06/09/22 mg tablet (Tricor) metoprolol tartrate 25 mg tablet 25 mg PO BID #180 tab-caps 06/09/22 apixaban 5 mg tablet (Eliquis) 5 mg PO BID #180 tabs 06/23/22 insulin aspart U-100 100 unit/mL See Rx Instructions .Route 06/30/22 (3 mL) subcutaneous pen (Novolog .COMPLEX #90 mL FlexPen U-100 Insulin aspart) rosuvastatin 40 mg tablet See Rx Instructions .Route 10/22/22 .COMPLEX #90 tabs empagliflozin 25 mg tablet See Rx Instructions .Route 11/01/22 (Jardiance) .COMPLEX #90 tabs flash glucose sensor (FreeStyle #2 ea 11/27/22 Bahman 2 Sensor kit) levothyroxine 50 mcg tablet 50 mcg PO DAILY #90 tab-caps 12/23/22 nitroglycerin 0.4 mg sublingual 0.4 mg sublingual Q5M PRN chest 03/30/23 tablet pain #90 tabs mirabegron 50 mg tablet,extended 50 mg PO DAILY #90 tabs 04/01/23 release 24 hr (Myrbetriq) Allergies Allergy/AdvReac Type Severity Reaction Status Date / Time No Known Allergies Allergy Verified 04/03/23 08:50 General Stated Complaint: Chest Pain CHRISTIANE: 3 PFSH All Active Problems (Updated 04/03/23 @ 11:25 by Antonio Yi MD) CHF (congestive heart failure) (Chronic) Acute exacerbation of congestive heart failure (Acute) Stopped smoking with greater than 20 pack year history (Chronic) Lung CT Screening, 07/16/20 Tubular adenoma of colon (Acute ~02/2023) Anemia (Chronic) Epiretinal membrane (Acute ~01/2023) right eye Arthritis of both knees (Chronic) MERRITT (obstructive sleep apnea) (Chronic) Bi-PAP 07/23/19 Current use of insulin (Chronic) Acquired hypothyroidism (Chronic 10/28/16) High TSH, but WNL T4 (2021) .. re-checking Cervical disc disorder with myelopathy (Acute) right arm Essential hypertension (Chronic 01/31/13) Hyperlipidemia (Chronic 08/17/12) Obesity (Chronic) Cardiomegaly (Acute) CXR; [place] [facility] [place]%, +LVH (mild), no significant valvular disease; stable compared with 2017 study Coronary artery disease (Chronic) 3-vessel (LAD, LCX, RCA) CKD (chronic kidney disease), stage III (Chronic) Overactive bladder (Acute) Myrbetriq started [ ] ... Oxybutynin, discontinued 06/24/19 in favor of optimizing DMT2 management Atrial fibrillation (Chronic) Apixaban 06/22/2019 Uncontrolled diabetes mellitus (Acute) IMPROVED since CGM! and diet improvements. Mtg with nutrition team. Goal </=7.5% Diabetes mellitus with neuropathy (Chronic) Reduced monofilament 06/24/2019 Goal A1C 7.5% or less Dizziness (Acute) Slow heart rate (Acute) Keeps losing balance (Acute) Unsteady gait (Acute) Ataxia (Acute) Asymmetrical sensorineural hearing loss (Acute) Cognitive impairment (Acute) Forgetting, but using notes/print-outs .. ex(?)- helps .. Nail dystrophy (Acute) Foot pain (Acute) Edema (Acute) Onychomycosis (Acute) Tinea pedis (Acute) Osteoarthritis of right knee (Acute) DEPO MEDROL 08/14/22 Hx of iron deficiency anemia (Acute) Fatigue (Acute) Worsened per pt, affecting ADL .. not just de-conditioning? Metatarsalgia of left foot (Acute) Pain of right great toe (Acute) History of kidney injury (Acute) Seeing Nephrology (quarterly Low vitamin D level (Acute) Very low, 7.9! Blisters of multiple sites (Acute ~01/13/23) 01/13/23 [facility] note- Dr. 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 Chronic and recurrent low back pain L4-[address] scan in 1993, recurrent since then intermittently. Hypomagnesemia (06/22/14) Only 1.0 in the ER today. Pipe smoker Surgical History History of colonoscopy (~02/2023) with Mac S/P cardiac catheterization (05/31/19) 2019 History of cataract removal with insertion of prosthetic lens (11/23/14) History of umbilical hernia repair Status post appendectomy Status post coronary artery stent placement (09/26/16) One vessel for unstable angina Status post coronary artery bypass with autogenous graft, 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) 2017 Repair of umbilical hernia Fracture, Open Treatment ORIF-LEFT SYNDESMOSIS WITH TWO SCREWS Colonoscopy - IV Sedation Extraction of cataract 11/23/14; DR. GOINS; RIGHT EYE 12/07/14; DR. GOINS; LEFT EYE Appendectomy Family History Father Diabetes Dementia Neoplasm PANCREATIC Social History (Updated 04/01/23 @ 11:37 by Sammi Umana RN) Smoking/Tobacco Use Status: Former Tobacco Use Quit Date: 01/02/17 Pack-years: 40 Tobacco: How many years used: 40 Quit status: has quit before Smoking risk assessment performed?: Yes Alcohol Intake: current Alcohol Intake frequency: a few times a week Alcohol type: beer and hard liquor Counseling given: Yes Counseling provided: reduce to 2 or less/day Details: 2-3 oz at a time Drug use: Never Substance use type: does not use Adopted: No Caregiver/Support person: No Foster care: No Household members: none and other Details: Cats Housing: house Number of Children: 3 number of grandchildren: 4 Communication Needs: None Do you need help understanding health information?: Rarely Pets and animals: Yes Pets and animals: cat(s) Do you think of yourself as: straight/heterosexual Current gender identity: male What is your relationship status?: How often do you talk on the phone with friends or family?: three or more times per week How often do you get together with friends or relatives?: twice per week Panel score (0-1 are the most socially isolated patients): 1 What type of physical activity do you participate in: other Details: Tredmill Duration: 45-60 minutes/day Frequency: 5-6 times per week Special isi needs: No Seatbelt use: always Helmet use: Yes Helmet use: always Drive intox 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 skip load driver: No Working smoke detector in home: No Fire extinguisher in home: No Carbon monox detector in home: No Do you feel safe at home: Yes Do you feel safe in your relationship?: Yes Exam Narrative Exam Narrative: Review of Systems: All systems reviewed & are unremarkable except as noted in HPI and below: CONSTITUTIONAL: Alert and oriented Well-developed, mild tachypnea, no hypoxia HEENT: NCAT EYES: PERRL, no conjunctival injection CVS: RRR, No murmurs or gallops. Peripheral pulses 2+ and equal in all extremities Brisk capillary refill in all extremities. 1+ peripheral edema RESP: Mild tachypnea, no hypoxia, diminished breath sounds difficult to assess secondary to body habitus GI: Soft, Nontender, Nondistended, No organomegaly MSK: Extremities with full range of motion, no deformity or TTP SKIN: Warm, Dry. No rashes or lesions. NEURO: No focal neurologic deficits. Course Vital Signs Vital signs: Vital Signs Temperature 37.0 C 04/03/23 08:46 Pulse 66 04/03/23 08:46 Respiratory Rate 20 04/03/23 08:46 Blood Pressure 158/55 H 04/03/23 08:46 Pulse Oximetry 95 04/03/23 08:46 Temperature 37.0 C 04/03/23 08:46 Temperature Source Skin 04/03/23 08:46 Pulse 60 04/03/23 10:17 Pulse 61 04/03/23 10:20 Respiratory Rate 19 04/03/23 10:20 Respiratory Effort Short of Breath 04/03/23 09:06 Blood Pressure 151/48 H 04/03/23 10:17 Blood Pressure Mean 81 04/03/23 10:17 Blood Pressure Position Supine 04/03/23 08:46 Pulse Oximetry 93 04/03/23 10:11 Oxygen Delivery Method Room Air 04/03/23 08:46 Oxygen Flow Rate 0 04/03/23 08:46 Pain Level 7 04/03/23 08:46 Lab/Test Results Lab/Test Results: Laboratory Tests Range/Units 04/03/23 04/03/23 04/03/23 09:10 09:10 09:10 WBC (4.4-10.8) 10^3/uL 17.82 H RBC (4.36-5.78) 10^6/uL 3.79 L Hgb (13.5-17.5) g/dL 12.3 L Hct (40.0-50.0) % 37.3 L MCV (80-95) fL 98 H MCH (27.0-33.0) pg 32.5 MCHC (32.0-36.0) % 33.0 RDW (11.8-14.1) % 12.9 Plt Count (130-400) 10^3/uL 233 MPV (8.0-11.0) fL 10.9 Immature Gran % See Differential Neutrophils % 84.0 Lymphocytes % 7.0 Monocytes % 5.0 Eosinophils % 1.0 Basophils % 3.0 Nucleated RBC % (0.0-0.3) % 0.0 Absolute Neutrophils (1.2-6.7) 10^3/uL 14.97 H Absolute Lymphocytes (1.2-3.4) 10^3/uL 1.25 Absolute Monocytes (0.1-0.8) 10^3/uL 0.89 H Absolute Eosinophils (0.0-0.7) 10^3/uL 0.18 Absolute Basophils (0.0-0.2) 10^3/uL 0.53 H RBC Morphology Normal Sodium (136-145) mmol/L 137 Potassium (3.5-5.1) mmol/L 4.7 Chloride (98-107) mmol/L 103 Carbon Dioxide (21.0-32.0) mmol/L 25.9 Anion Gap (3-11) mmol/L 8.1 BUN (7-18) mg/dL 23 H Creatinine (0.70-1.30) mg/dL 1.6 H Est GFR (CKD-EPI 2020) (mL/min/1.73m2) 46.06 Glucose (74-106) mg/dL 175 H Calcium (8.5-10.1) mg/dL 8.8 Total Bilirubin (0.2-1.0) mg/dL 0.8 AST (15-37) U/L 26 ALT (16-63) U/L 19 Alkaline Phosphatase (46-116) U/L 44 L Troponin I Cancelled < 50 NT-Pro-B Natriuret Pep Cancelled 8795 H Total Protein (6.4-8.2) g/dL 7.3 Albumin (3.4-5.0) g/dL 3.4 PAWSS Have you Been Recently Intoxicated or Drunk Within the Last 30 days?: No Have you Ever Experienced Previous Episodes of Alcohol Withdrawal?: No Have you ever Experienced Withdrawal Seizures?: No Have you ever Experienced Delirium Tremens(DT)s?: No Have you ever undergone Alcohol Rehabilitation Treatment (i.e, inpt ot outpatient treatment programs)?: No Have you ever Experienced Blackouts?: No Have you ever Combined Alcohol with other Downers within the last 90 days?: No Have you ever Combined Alcohol with any other Substance of Abuse during the last 90 days?: No Positive Blood Alcohol level on Presentation? [PCS.BAL]: No Evidence of Increased Autonomic Activity (i.e. HR>120, tremor, sweating, agitation, nausea)?: No Result: 0
--- NOTE | 2023-04-03 11:57 | ED.PROG_ITS ---
Date of service: 04/03/23 Time of Service: 11:57 Medical Decision Making At this time the patient does not wish to continue his medical care. He states that the beds are too uncomfortable and he cannot sleep here. He also feels embarrassed about urinating repeatedly on the floor. I have encouraged the patient to stay as I think that it would benefit his overall health however he does have capacity to make this decision. I had a long discussion with the patient regarding risks, benefits, and alternatives to my recommended treatment plan, which includes admission and diuresis and the patient declined, voicing understanding of the risks but preferring instead to leave against medical advice. Some of the risks we specifically discussed included permanent disability or . I discussed with the patient that they were always welcome back to this department should they change their mind, and that regardless they should follow up with their primary care doctor at the soonest possible opportunity. All questions were answered and the patient left AMA in unchanged condition. Discharge Plan Disposition Patient Disposition: Against Medical Advice Condition: Stable Discharge Details Clinical Impression: CHF (congestive heart failure) Primary Care Provider: Clare Medley ED Provider: Antonio Yi Home Meds and New Rx's Prescriptions: No Action insulin glargine [Lantus Solostar U-100 Insulin] 100 unit/mL (3 mL) insulin pen 55 unit Sub-Q QPM Rx Instructions: Or as directed for dx: E11.65 nitroglycerin 0.4 mg tablet, sublingual 0.4 mg sublingual Q5-15M PRN Rx Instructions: do not exceed 3 doses per episode (DME) FreeStyle Bahman 2 [place] Misc See Rx Instructions .ROUTE .MEDSUPPLY Qty: 1 0RF Rx Instructions: As directed Myrbetriq 50 mg tablet extended release 24 hr 50 mg PO DAILY Qty: 90 3RF aspirin 81 mg tablet,delayed release (DR/EC) 81 mg PO DAILY Patient Comments: 06/02/19-replaces 325mg. daily dose. [facility] [place] discharge note. JOBY Mchugh (DME) lancets [FreeStyle Lancets] 28 gauge misc See Rx Instructions .ROUTE .MEDSUPPLY Qty: 400 3RF Rx Instructions: to test BS 4X daily for DM/E11.9 and to keep A1c at or under 7.0% (DME) pen needle, diabetic [BD Ultra-Fine Amber Pen Needle] 32 gauge x 5/32 needle 1 ea Miscellaneous QID Qty: 400 3RF Rx Instructions: E11.65 to administer insulin 4x/day (DME) Blood Glucose Test Strip See Rx Instructions .MEDSUPPLY Qty: 400 3RF Rx Instructions: As directed to check blood glucose four times daily. On insulin. Dispense covered brand. losartan 25 mg tablet See Rx Instructions .ROUTE .COMPLEX Qty: 90 3RF Dose Instruction: TAKE 1 TABLET AT BEDTIME FOR DIABETES, AND TO PROTECT KIDNEYS Rx Instructions: TAKE 1 TABLET AT BEDTIME FOR DIABETES, AND TO PROTECT KIDNEYS fenofibrate nanocrystallized [Tricor] 145 mg tablet 145 mg PO DAILY Qty: 90 3RF amlodipine 10 mg tablet 10 mg PO DAILY Qty: 90 3RF Rx Instructions: Blood pressure & Heart health metoprolol tartrate 25 mg tablet 25 mg PO BID Qty: 180 3RF Rx Instructions: Heart Eliquis 5 mg tablet 5 mg PO BID Qty: 180 3RF Hold Instructions: Resume on 02/06/23. insulin aspart U-100 [Novolog FlexPen U-100 Insulin] 100 unit/mL (3 mL) insulin pen See Rx Instructions .ROUTE .COMPLEX Qty: 90 3RF Dose Instruction: INJECT 10 TO 30 UNITS BEFORE MEALS PER MEALTIME CORRECTION SCHEDULE Rx Instructions: INJECT 10 TO 30 UNITS BEFORE MEALS PER MEALTIME CORRECTION SCHEDULE rosuvastatin 40 mg tablet See Rx Instructions .ROUTE .COMPLEX Qty: 90 3RF Dose Instruction: TAKE 1 TABLET DAILY Rx Instructions: TAKE 1 TABLET DAILY Jardiance 25 mg tablet See Rx Instructions .ROUTE .COMPLEX Qty: 90 3RF Dose Instruction: TAKE 1 TABLET EVERY MORNING Rx Instructions: TAKE 1 TABLET EVERY MORNING (DME) FreeStyle Bahman 2 Sensor Kit See Rx Instructions .ROUTE .MEDSUPPLY Qty: 2 11RF Rx Instructions: As directed levothyroxine 50 mcg tablet 50 mcg PO DAILY Qty: 90 1RF Rx Instructions: Thyroid nitroglycerin 0.4 mg tablet, sublingual 0.4 mg SL Q5M PRN (Reason: chest pain) Qty: 90 2RF Rx Instructions: Take 1 at onset of chest pain, may repeat x2 q5 min if pain continues. Discharge Instructions Additional Instructions: He has left the hospital AGAINST MEDICAL ADVICE. Please follow-up with your primary care physician for reevaluation of your exacerbation of heart failure. Please return to the hospital if you have any additional concerns or interested in resuming your care.
--- NOTE | 2023-04-03 11:59 | NUR.NOTE ---
Nursing Note: Pt left AMA after report was given by nurse, IV removed by jamila Brody (EMT).
--- NOTE | 2023-04-03 13:38 | NUR.NOTE ---
Nursing Note:Patient was admitted to M/S. Report was given by RN to Charge nurse on m/s. Patient refused to be admitted. Patient spoke with Dr. Yi and signed an AMA form
== END 2023-04-03 11:57 | disposition left against medical advice (07) ==
PROVIDERS: Emergency Provider Emergency Medicine; PCP Student in an Organized Health Care Education/Training Program
DX: R07.9 Chest pain, unspecified (principal); R06.02 Shortness of breath; I12.9 Hypertensive chronic kidney disease with stage 1 through stage 4 chronic kidney disease, or unspecified chronic kidney disease; N18.9 Chronic kidney disease, unspecified; E11.22 Type 2 diabetes mellitus with diabetic chronic kidney disease; I48.91 Unspecified atrial fibrillation; E03.9 Hypothyroidism, unspecified; Z79.01 Long term (current) use of anticoagulants; Z79.84 Long term (current) use of oral hypoglycemic drugs; Z87.891 Personal history of nicotine dependence; Z95.1 Presence of aortocoronary bypass graft; Z95.5 Presence of coronary angioplasty implant and graft
CPT/HCPCS: 00123; 80053; 93005; 99283; 71046; 83880; 84484; 85025; 93010; J1940

== ENCOUNTER → 2023-04-08 00:56 | Outpatient (CLI) | payer MEDICARE, OTHER, SELFPAY ==
--- NOTE | 2023-04-08 06:51 | DI.US_ITS ---
Exam(s) US AAA SCREENING EXAM: US AAA SCREENING CLINICAL HISTORY: SCREENING FOR AAA,FORMER SMOKER, Z13.6 COMPARISON: CT ABD PELVIS WITH CONTRAST from 01/14/2014 FINDINGS: Abdominal Aorta: Proximal: 1.9 cm Mid: 1.9 cm Distal: 1.9 cm Iliacs: Right: 1.6 cm Left: 1.6 cm IMPRESSION: No evidence of abdominal aortic aneurysm. DATA REPOSITORY:
== END ==
PROVIDERS: PCP Student in an Organized Health Care Education/Training Program; Visit Provider Student in an Organized Health Care Education/Training Program
DX: Z13.6 Encounter for screening for cardiovascular disorders (principal); Z87.891 Personal history of nicotine dependence
CPT/HCPCS: 76706

== ENCOUNTER 2023-04-17 19:21 | Outpatient (CLI) | payer MEDICARE, OTHER, SELFPAY ==
[2023-04-17 14:56] LABS: HGB 13.1 g/dL (13.5-17.5)
[2023-04-17 15:31] LABS: Anion Gap 11.9 mmol/L (3-11); BUN 61 mg/dL (7-18); CO2 26.1 mmol/L (21.0-32.0); CREATININE 2.2 mg/dL (0.70-1.30); Chloride 99 mmol/L (98-107); Estimated GFR 31.43 (mL/min/1.73m2); NT-proBNP 1369 pg/mL (<300); Sodium 137 mmol/L (136-145); TSH (W/Ref FT4) 2.74 uIU/mL (0.36-3.74)
[2023-04-17 15:33] LABS: Glucose 318 mg/dL (74-106)
[2023-04-18 09:54] LABS: HIV-1/2 Ag & Ab Screen Negative (Negative)
[2023-04-19 21:41] LABS: Lab Add On Test DONE
[2023-04-19 22:08] LABS: Hemoglobin A1C 8.1 % (<5.7)
[2023-04-20 11:02] LABS: Hepatitis A Antibody IgM Negative (Negative); Hepatitis B Core Antibody Negative (Negative); Hepatitis B surface Ag Negative (Negative); Hepatitis C Ab w Rflx HCV PCR Negative (Negative)
== END 2023-04-17 19:22 | disposition home or self-care (01) ==
LOC: LBO 19:22
PROVIDERS: PCP Student in an Organized Health Care Education/Training Program; Visit Provider Student in an Organized Health Care Education/Training Program
DX: I10 Essential (primary) hypertension (principal); E03.9 Hypothyroidism, unspecified; I50.23 Acute on chronic systolic (congestive) heart failure; N18.30 Chronic kidney disease, stage 3 unspecified; Z11.51 Encounter for screening for human papillomavirus (HPV); R73.09 Other abnormal glucose
CPT/HCPCS: 36415; 80048; 86704; 86709; 86803; 87340; 87389; 83036; 83880; 84443; 85018

== ENCOUNTER 2023-05-07 15:06 | Outpatient (CLI) | payer MEDICARE, OTHER, SELFPAY ==
[2023-05-07 16:01] LABS: HGB 14.3 g/dL (13.5-17.5)
[2023-05-07 16:32] LABS: ALT 32 U/L (16-63); AST 23 U/L (15-37); Albumin 3.9 g/dL (3.4-5.0); Alkaline Phosphatase 89 U/L (46-116); BUN 60 mg/dL (7-18); Bilirubin, Total 0.5 mg/dL (0.2-1.0); Calcium 9.2 mg/dL (8.5-10.1); Chloride 101 mmol/L (98-107); Estimated GFR 35.24 (mL/min/1.73m2); Potassium 4.8 mmol/L (3.5-5.1); Sodium 138 mmol/L (136-145); Total Protein 7.8 g/dL (6.4-8.2)
[2023-05-07 16:39] LABS: Glucose 336 mg/dL (74-106)
== END 2023-05-07 15:07 | disposition home or self-care (01) ==
LOC: LBO 15:07
PROVIDERS: PCP Student in an Organized Health Care Education/Training Program; Visit Provider Student in an Organized Health Care Education/Training Program
DX: I50.9 Heart failure, unspecified; N18.30 Chronic kidney disease, stage 3 unspecified
CPT/HCPCS: 36415; 80053; 83735; 85018

== ENCOUNTER 2023-05-14 03:54 | Outpatient (CLI) | payer MEDICARE, OTHER, SELFPAY ==
[2023-05-14 13:56] LABS: Anion Gap 9.1 mmol/L (3-11); BUN 48 mg/dL (7-18); CO2 24.9 mmol/L (21.0-32.0); CREATININE 1.7 mg/dL (0.70-1.30); Calcium 9.2 mg/dL (8.5-10.1); Chloride 106 mmol/L (98-107); Estimated GFR 42.83 (mL/min/1.73m2); Glucose 166 mg/dL (74-106); Potassium 4.6 mmol/L (3.5-5.1); Sodium 140 mmol/L (136-145)
== END 2023-05-14 03:55 | disposition home or self-care (01) ==
LOC: LBO 03:54
PROVIDERS: PCP Student in an Organized Health Care Education/Training Program; Referring Provider Student in an Organized Health Care Education/Training Program; Visit Provider Student in an Organized Health Care Education/Training Program
DX: N18.30 Chronic kidney disease, stage 3 unspecified (principal); Z91.89 Other specified personal risk factors, not elsewhere classified
CPT/HCPCS: 36415; 80048; 83735

== ENCOUNTER → 2023-05-28 01:47 | Outpatient (CLI) | payer MEDICARE, OTHER, SELFPAY ==
--- NOTE | 2023-05-28 13:30 | DI.US_ITS ---
APPROVED REPORT EXAM: Comprehensive 2D, Doppler, and color-flow Echocardiogram Patient Location: Out-Patient Manager Of Photography: Dat Brandt RDCS (AE) Other Information Technically limited study due to body habitus. Conclusion Technically limited study 1. LA/LV mildly dilated, RA/RV normal sizes. 2. Dyskinesis of the septum superimposed on moderate global hypokinesis,EF estimated at 40%. Normal R V function. 3. Mild aortic sclerosi,mild MR, mild TR without phtn. 4. No pericardial effusion. Wall motion Left Ventricle Left ventricle is severely dilated. There is normal left ventricular wall thickness. There is no vent ricular septal defect visualized. Right Ventricle Right ventricle is grossly normal in size. Right ventricular systolic function is grossly normal. Atria Left atrium is moderately dilated. Right atrium is moderately dilated. The interatrial septum is inta ct with no evidence for an atrial septal defect. Aortic Valve Aortic valve is probably trileaflet. There is no aortic valvular stenosis. No aortic regurgitation is present. Mitral Valve Mild mitral annular calcification. No evidence of mitral valve stenosis. Mild mitral regurgitation. Tricuspid Valve The tricuspid valve is normal in structure. There is no tricuspid valve stenosis. Mild tricuspid regu rgitation. The RVSP is 27.6 mmHg. Pulmonic Valve The pulmonary valve is normal in structure. There is no pulmonic valvular stenosis. There is no pulmo arianne valvular regurgitation. Great Vessels The aortic root is normal in size. The ascending aorta is normal in size. Aortic arch is normal in ca liber. IVC is normal in size and collapses >50% with inspiration. Pericardium There is no pericardial effusion. 2D Dimensions IVSD d PLAX 0.95 cm M: 0.6-1.2 Ao Root d 3.34 cm M: 3.1 - 3.7 LVPW d PLAX 0.95 cm M: 0.6 - 1.2 Ao Asc Diam d 2.89 cm M: 2.6 - 3.4 LVID d PLAX 7.54 cm M: 4.2 - 5.8 LVDs 5.44 cm M: 2.5 - 4.0 LV EF Teichholz 52.3 % FS 27.80 % LV EDV (Teich) 301.5 mL LV ESV (Teich) 143.8 mL Stroke Vol Index (Teich) 63.84 M-Mode TAPSE 1.53 cm (M/F) >1.7 LA Volume LA Length A4C 6.7 cm LA Length A2C 6.6 cm LA Area A4C s 23.62 cm2 LA Area A2C s 19.96 cm2 LA Vol A4C A-L 70.75 mL LA Vol A2C A-L 51.20 mL LA Vol Biplane A-L 60.6 mL LA Vol/BSA A4C A-L LA Vol/BSA A2C A-L LA Vol/BSA BP A-L 24.5 mL/m2 LA Vol A4C MOD 67.8 mL LA Vol A2C MOD 50.8 mL LA Vol BP MOD 58.7 mL RA Volume RA Area A4C 19.7 cm2 RA ESV A4C (A-L) 52.5mL RA Vol/BSA A4C A-L RA Length A4C 6.3 cm RA ESV A4C (MOD) 51.1mL LV Diastology MV E' medial 0.052 (>0.07 m/s) MV E Vmax 0.95 (0.4-1.3 m/s) MV E/E' MED 18.09 (<14) MV A Vmax 0.45 (0.4-1.3 m/s) MV E' lateral 0.082 (>0.1 m/s) E/A Ratio 2.1 MV E/E' LAT 11.62 (<14) MV E' Average 0.067 m/s MV E/E'(average) 14.15 Aortic Valve AoV Vmax 1.72 m/s LVOT Vmax 1.04 m/s AoV Peak Grad 11.8 mmHg LVOT Peak Grad 4.3 mmHg AoV Area (Vmax) 1.81 cm2 LVOT VTI 0.243 m AoV VTI 0.365 m LVOT Mean Grad 2.4 mmHg AoV Mean Akbar. 1.14 m/s LVOT SV 72.76 mL AoV Mean Grad 6.2 mmHg LVOT Diam s 1.95 cm AoV Area (VTI) 1.99 cm2 Velocity Ratio 0.60 Mitral Valve MV DT 210 (160-240 msec) Pulmonary Valve PV Vmax 0.81 (0.5-1.5 m/s) RVOT Vmax 0.51 m/s PV Peak Grad 2.6 mmHg RVOT Peak Gr. 1.1 mmHg PV Mean Akbar 0.50 m/s RVOT VTI 0.105 m PV Mean Grad 1.2 mmHg RVOT Mean Gr. 0.5 mmHg Tricuspid Valve RA Pressure 3.00 mmHg TR Vmax 2.48 m/s TR Peak Grad 24.5 mmHg RVSP (TR) 27.6 mmHg
== END ==
PROVIDERS: PCP Student in an Organized Health Care Education/Training Program; Visit Provider Student in an Organized Health Care Education/Training Program
DX: I50.9 Heart failure, unspecified (principal); N18.30 Chronic kidney disease, stage 3 unspecified; R60.9 Edema, unspecified
CPT/HCPCS: 93306

== ENCOUNTER 2023-05-28 10:47 | Outpatient (CLI) | payer MEDICARE, OTHER, SELFPAY ==
[2023-05-28 15:28] LABS: Anion Gap 14.4 mmol/L (3-11); BUN 69 mg/dL (7-18); CO2 23.6 mmol/L (21.0-32.0); CREATININE 1.9 mg/dL (0.70-1.30); Calcium 9.9 mg/dL (8.5-10.1); Chloride 104 mmol/L (98-107); Estimated GFR 37.48 (mL/min/1.73m2); Glucose 100 mg/dL (74-106); Potassium 4.8 mmol/L (3.5-5.1); Sodium 142 mmol/L (136-145)
== END 2023-05-28 10:48 | disposition home or self-care (01) ==
LOC: LBO 10:47
PROVIDERS: PCP Student in an Organized Health Care Education/Training Program; Visit Provider Student in an Organized Health Care Education/Training Program
DX: N17.9 Acute kidney failure, unspecified; N18.31 Chronic kidney disease, stage 3a
CPT/HCPCS: 36415; 80048; 93306

== ENCOUNTER 2023-08-25 14:47 | Emergency (ER) | payer MEDICARE, OTHER, SELFPAY ==
[2023-08-25 14:53] VITALS: BP 168/72; PULSE 76; RESP 16; TEMP 36.1; O2SAT 95
--- NOTE | 2023-08-25 15:15 | W.ED.GENAD ---
Discharge Plan Disposition Patient Disposition: Home Condition: Stable Discharge Details Clinical Impression: Ecchymosis Primary Care Provider: Clare Medley ED Provider: Tripp Castle Home Meds and New Rx's Prescriptions: No Action nitroglycerin 0.4 mg tablet, sublingual 0.4 mg sublingual Q5-15M PRN Rx Instructions: do not exceed 3 doses per episode insulin aspart U-100 [Novolog FlexPen U-100 Insulin] 100 unit/mL (3 mL) insulin pen See Rx Instructions .ROUTE .COMPLEX Qty: 90 3RF Dose Instruction: INJECT 10 TO 30 UNITS BEFORE MEALS PER MEALTIME CORRECTION SCHEDULE Rx Instructions: INJECT 10 TO 30 UNITS BEFORE MEALS PER MEALTIME CORRECTION SCHEDULE losartan 25 mg tablet See Rx Instructions .ROUTE .COMPLEX Qty: 90 3RF Dose Instruction: TAKE 1 TABLET AT BEDTIME FOR DIABETES, AND TO PROTECT KIDNEYS Rx Instructions: TAKE 1 TABLET AT BEDTIME FOR DIABETES, AND TO PROTECT KIDNEYS (DME) FreeStyle [place]man 2 [place] Misc See Rx Instructions .ROUTE .MEDSUPPLY Qty: 1 0RF Rx Instructions: As directed Myrbetriq 50 mg tablet extended release 24 hr 50 mg PO DAILY Qty: 90 3RF furosemide 40 mg tablet 40 mg PO DAILY PRN (Reason: LEG SWELLING) Qty: 90 3RF Hold Instructions: Home Medication placed on hold at Doctor's office Rx Instructions: Re-start, 04/14 x 3-5 days levothyroxine 50 mcg tablet 50 mcg PO DAILY Qty: 90 1RF Rx Instructions: Thyroid aspirin 81 mg tablet,delayed release (DR/EC) 81 mg PO DAILY Patient Comments: 06/02/19-replaces 325mg. daily dose[place] [facility] [place]. JOBY Mchugh (DME) lancets [FreeStyle Lancets] 28 gauge misc See Rx Instructions .ROUTE .MEDSUPPLY Qty: 400 3RF Rx Instructions: to test BS 4X daily for DM/E11.9 and to keep A1c at or under 7.0% (DME) pen needle, diabetic [BD Ultra-Fine Amber Pen Needle] 32 gauge x 32 needle 1 ea Miscellaneous QID Qty: 400 3RF Rx Instructions: E11.65 to administer insulin 4x/day (DME) Blood Glucose Test Strip See Rx Instructions .MEDSUPPLY Qty: 400 3RF Rx Instructions: As directed to check blood glucose four times daily. On insulin. Dispense covered brand. amlodipine 10 mg tablet 10 mg PO DAILY Qty: 90 3RF Hold Instructions: LOW BP; LE EDEMA Rx Instructions: Blood pressure & Heart health rosuvastatin 40 mg tablet See Rx Instructions .ROUTE .COMPLEX Qty: 90 3RF Dose Instruction: TAKE 1 TABLET DAILY Rx Instructions: TAKE 1 TABLET DAILY (DME) FreeStyle Bahman 2 Sensor Kit See Rx Instructions .ROUTE .MEDSUPPLY Qty: 2 11RF Rx Instructions: As directed nitroglycerin 0.4 mg tablet, sublingual 0.4 mg SL Q5M PRN (Reason: chest pain) Qty: 90 2RF Rx Instructions: Take 1 at onset of chest pain, may repeat x2 q5 min if pain continues. cholecalciferol (vitamin D3) 1,250 mcg (50,000 unit) capsule 1,250 mcg PO QWEEK Eliquis 5 mg tablet 5 mg PO BID Qty: 180 3RF Hold Instructions: Resume on 02/06/23. Rx Instructions: PLEASE EXPLAIN WHAT HAPPENED TO 05/29/23 PRESCRIPTION? metoprolol tartrate 25 mg tablet 25 mg PO BID Qty: 180 3RF Rx Instructions: Heart insulin glargine [Lantus Solostar U-100 Insulin] 100 unit/mL (3 mL) insulin pen 55 unit Sub-Q QPM Qty: 60 3RF Rx Instructions: Or as directed for dx: E11.65 fenofibrate nanocrystallized [Tricor] 145 mg tablet 145 mg PO DAILY Qty: 90 3RF Jardiance 25 mg tablet See Rx Instructions .ROUTE .COMPLEX Qty: 90 3RF Dose Instruction: TAKE 1 TABLET EVERY MORNING Rx Instructions: TAKE 1 TABLET EVERY MORNING Discharge Instructions Instructions: Facial Contusion (ED) Discharge Data Discharge Date/Time-TO BE ENTERED AT DEPARTURE: 08/25/23 15:41 HPI General Date/Time Provider Initiated Documentation: 08/25/23 14:57. HPI Narrative: 72-year-old male presents with bruising to right side of face anterior to right ear, patient noted a bunch on his face a couple of days ago that he repeatedly tried to squeeze was unable to express any purulent material. Ran into a couple acquaintances who said that his face was bruised. Here for evaluation. Denies fevers chills nausea vomiting or systemic signs of illness. Related Data Home Medications Medication Instructions Recorded Confirmed aspirin 81 mg tablet,delayed 81 mg PO DAILY 06/02/19 07/02/23 release lancets 28 gauge (FreeStyle #400 ea 02/11/21 07/02/23 Lancets) pen needle, diabetic 32 gauge x #400 ea 03/25/21 07/02/23 5/32 (BD Ultra-Fine Amber Pen Needle) flash glucose scanning reader #1 ea 11/17/21 07/02/23 (FreeStyle [place] 2 [place]) blood sugar diagnostic (Blood #400 ea 12/13/21 07/02/23 Glucose Test strips) amlodipine 10 mg tablet 10 mg PO DAILY #90 tabs 06/09/22 07/02/23 rosuvastatin 40 mg tablet See Rx Instructions .Route 10/22/22 07/02/23 .COMPLEX #90 tabs flash glucose sensor (FreeStyle #2 ea 11/27/22 07/02/23 Bahman 2 Sensor kit) nitroglycerin 0.4 mg sublingual 0.4 mg sublingual Q5-15M PRN 01/26/23 07/02/23 tablet nitroglycerin 0.4 mg sublingual 0.4 mg sublingual Q5M PRN chest 03/30/23 07/02/23 tablet pain #90 tabs mirabegron 50 mg tablet,extended 50 mg PO DAILY #90 tabs 04/01/23 07/02/23 release 24 hr (Myrbetriq) furosemide 40 mg tablet 40 mg PO DAILY PRN LEG SWELLING 04/10/23 07/02/23 #90 tabs insulin aspart U-100 100 unit/mL See Rx Instructions .Route 05/29/23 07/02/23 (3 mL) subcutaneous pen (Novolog .COMPLEX #90 mL FlexPen U-100 Insulin aspart) losartan 25 mg tablet See Rx Instructions .Route 05/29/23 07/02/23 .COMPLEX #90 tabs cholecalciferol (vitamin D3) 1,250 1,250 mcg PO QWEEK 06/08/23 07/02/23 mcg (50,000 unit) capsule levothyroxine 50 mcg tablet 50 mcg PO DAILY #90 tab-caps 07/02/23 07/02/23 apixaban 5 mg tablet (Eliquis) 5 mg PO BID #180 tabs 07/22/23 metoprolol tartrate 25 mg tablet 25 mg PO BID #180 tab-caps 07/28/23 insulin glargine 100 unit/mL (3 55 unit (0.55 mL) subcut QPM #60 mL 07/31/23 mL) subcutaneous pen (Lantus Solostar U-100 Insulin) empagliflozin 25 mg tablet See Rx Instructions .Route 08/04/23 (Jardiance) .COMPLEX #90 tabs fenofibrate nanocrystallized 145 145 mg PO DAILY #90 tab-caps 08/04/23 mg tablet (Tricor) Previous Rx's Medication Instructions Recorded lancets 28 gauge (FreeStyle #400 ea 02/11/21 Lancets) pen needle, diabetic 32 gauge x #400 ea 03/25/21 (BD Ultra-Fine Amber Pen Needle) flash glucose scanning reader #1 ea 11/17/21 (FreeStyle [place]man 2 [place]) blood sugar diagnostic (Blood #400 ea 12/13/21 Glucose Test strips) amlodipine 10 mg tablet 10 mg PO DAILY #90 tabs 06/09/22 rosuvastatin 40 mg tablet See Rx Instructions .Route 10/22/22 .COMPLEX #90 tabs flash glucose sensor (FreeStyle #2 ea 11/27/22 Bahman 2 Sensor kit) nitroglycerin 0.4 mg sublingual 0.4 mg sublingual Q5M PRN chest 03/30/23 tablet pain #90 tabs mirabegron 50 mg tablet,extended 50 mg PO DAILY #90 tabs 04/01/23 release 24 hr (Myrbetriq) furosemide 40 mg tablet 40 mg PO DAILY PRN LEG SWELLING 04/10/23 #90 tabs insulin aspart U-100 100 unit/mL See Rx Instructions .Route 05/29/23 (3 mL) subcutaneous pen (Novolog .COMPLEX #90 mL FlexPen U-100 Insulin aspart) losartan 25 mg tablet See Rx Instructions .Route 05/29/23 .COMPLEX #90 tabs levothyroxine 50 mcg tablet 50 mcg PO DAILY #90 tab-caps 07/02/23 apixaban 5 mg tablet (Eliquis) 5 mg PO BID #180 tabs 07/22/23 metoprolol tartrate 25 mg tablet 25 mg PO BID #180 tab-caps 07/28/23 insulin glargine 100 unit/mL (3 55 unit (0.55 mL) subcut QPM #60 mL 07/31/23 mL) subcutaneous pen (Lantus Solostar U-100 Insulin) empagliflozin 25 mg tablet See Rx Instructions .Route 08/04/23 (Jardiance) .COMPLEX #90 tabs fenofibrate nanocrystallized 145 145 mg PO DAILY #90 tab-caps 08/04/23 mg tablet (Tricor) Allergies Allergy/AdvReac Type Severity Reaction Status Date / Time No Known Allergies Allergy Verified 09/12/23 12:01 General Stated Complaint: RashLesion CHRISTIANE: 4 Review of Systems Narrative: Review of Systems Constitutional: negative Eyes: negative ENT: negative Cardiovascular: negative Respiratory: negative Gastrointestinal: negative : negative Musculoskeletal: negative Skin: Facial bruising Neurologic: negative Psych: negative Exam Narrative Exam Narrative: Physical Examination General: alert, awake, cooperative, resting comfortably, no acute distress HEENT: normocephalic, atraumatic; PERRL, EOM intact, conjunctiva normal; no nasal discharge; moist mucous membranes, oral and pharyngeal mucosa normal, tolerating secretions Neck: supple, trachea midline; full ROM Chest: normal to inspection Respiratory: normal respiratory effort, speaking in full sentences Skin: Small area of ecchymosis anterior to right ear as well as inferior posterior to right ear, no induration fluctuance or purulence noted no warmth no tenderness Neuro: AAOx3, normal speech, moving all extremities Psych: Appropriate mood and affect Course Vital Signs Vital signs: Vital Signs Temperature 36.1 C L 08/25/23 14:53 Pulse 76 08/25/23 14:53 Respiratory Rate 16 08/25/23 14:53 Blood Pressure 168/72 H 08/25/23 14:53 Pulse Oximetry 95 08/25/23 14:53 Temperature 36.1 C L 08/25/23 14:53 Temperature Source Tympanic 08/25/23 14:53 Pulse 76 08/25/23 14:53 Respiratory Rate 16 08/25/23 14:53 Blood Pressure 168/72 H 08/25/23 14:53 Blood Pressure Position Sitting 08/25/23 14:53 Pulse Oximetry 95 08/25/23 14:53 Oxygen Delivery Method Room Air 08/25/23 14:53 Oxygen Flow Rate 0 08/25/23 14:53 Pain Level 0 08/25/23 14:53 Medical Decision Making 72-year-old male presents with area of subacute ecchymosis anterior and inferior posterior to right ear near an area that he was attempting to squeeze/express over the last couple of days, no fluctuance no purulence no sign of abscess or cellulitis. Hemodynamically stable afebrile nontoxic neurologically intact. Home care instructions and return precautions given Quality:SDOH Health Related Social Needs: No Data to Display PFSH All Active Problems (Updated 09/16/23 @ 16:33 by Tripp Castle MD) Ecchymosis (Acute) Acute pain of right foot (Acute) Coordination of complex care (Acute) Chart Review ID several Dx/Tx needing re-assessment or Hx requiring re-evaluation ([facility] apr?)(Bi-Pap ordered 12/2023, rec'd?)(Fe Infusion)(Vit D started? re-checked?)(++) Bradycardia (Acute) Noted for some time (1/2 dose trialed in 2021 before change in PCP)(chart reviewed, 05/30/23: dizziness incompletely evaluated 2' pt leaving [facility] AMA.. ACS ruled out 01/08-12/23.. Metoprolol decreased from 25mg BID per [facility], but maybe NOT implemented? ..and missed in FU! 05/30/23, sung Diuresis (Acute) actively diuresing, good results with q 2-3 days lasix (May 2023). Hx exacerbated CHF in Fall 2022 (AMA 2' intolerance diuretics, unable to get to bathroom; poor sleep 2' noise + uncomfortable bed)((Rx if HOSPTLZATN needed .. ik, 04/2023)) Pitting edema (Chronic) improved with diuretics (mar-apr 2023) .. cont q2 days.. [ ] [place] [facility] [place] Low vitamin D level (Acute) Very low, 7.9! Essential hypertension (Chronic 01/31/13) CHF (congestive heart failure), NYHA class II (Chronic) EF 40% (12/2022), decreased from 2019 .. Clinical Dx ClassII CKD (chronic kidney disease) stage 3, GFR 30-59 ml/min (Acute) History of kidney injury (Acute) GLENYS 2' furosemide, 04/17/23, but needed for HF/Edema.. Seeing Nephrology (quarterly) Decreased dorsalis pedis pulse (Acute) per Pod, 01/13/23 (2/4) Absence of posterior tibial pulse (Acute) per Pod, 01/13/23 Coronary artery disease (Chronic) 3-vessel (LAD, LCX, RCA) Atrial fibrillation (Chronic) Apixaban 06/22/2019 Acute exacerbation of congestive heart failure (Acute) ED --> Hospitalized for diuresis, but no mosqueda & pt unable to sleep (left AMA) Cardiomegaly (Acute) CXR; ECHO 05/2019 [facility] [place]LVEF 53%, +LVH (mild), no significant valvular disease; stable compared with 2017 study Anemia (Chronic) Hx of iron deficiency anemia (Acute) improved with iron infusion, but did not feel better (possible iron infusions exacerb HF? ~ Mar--Apr 2023)(doubtful based on no IVF, but possible) Fatigue (Acute) Worsened per pt, affecting ADL .. not just de-conditioning? Hyperlipidemia (Chronic 08/17/12) Osteoarthritis of right knee (Acute) DEPO MEDROL 08/14/22 Arthritis of both knees (Chronic) MERRITT (obstructive sleep apnea) (Chronic) Bi-PAP 07/23/19 Diabetes mellitus with neuropathy (Chronic) Reduced monofilament 06/24/2019 Goal A1C 7.5% or less Uncontrolled diabetes mellitus (Acute) IMPROVED since CGM! and diet improvements. Mtg with nutrition team. Goal </=7.5% Current use of insulin (Chronic) Acquired hypothyroidism (Chronic 10/28/16) High TSH, but WNL T4 (2021) .. re-checking Cervical disc disorder with myelopathy (Acute) right arm Overactive bladder (Acute) Myrbetriq RE-started, 03/2023.. rptd improved @ 04/10/23 ov, ik .. Oxybutynin, discontinued 06/24/19 in favor of optimizing DMT2 management Unsteady gait (Acute) Dizziness incompletely evaluated 2' pt leaving [facility] AMA.. ACS ruled out 01/08-12/23.. Metoprolol decreased from 25mg BID per [facility], but maybe NOT implemented? ..and missed in FU! 05/30/23, ik Ataxia (Acute) Asymmetrical sensorineural hearing loss (Acute) Cognitive impairment (Acute) Forgetting, but using notes/print-outs .. ex(?)- helps .. Nail dystrophy (Acute) Onychomycosis (Acute) Tinea pedis (Acute) Blisters of multiple sites (Acute ~01/13/23) 01/13/23 [facility] note- Dr. Barker: Seropurulent Blisters, B/L legs.HE Metatarsalgia of left foot (Acute) Pain of right great toe (Acute) Medical History PAD (peripheral artery disease) Left, per [facility]VAL[facility] (12/2022) Stopped smoking with greater than 20 pack year history Lung CT Screening, 07/16/20 Epiretinal membrane (~01/2023) right eye Slow heart rate Noted for some time (1/2 dose trialed in 2021 before change in PCP)(chart reviewed, 05/30/23: dizziness incompletely evaluated 2' pt leaving [facility] AMA.. ACS ruled out 01/08-12/23.. Metoprolol decreased from 25mg BID per [facility], but maybe NOT implemented? ..and missed in FU! 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 Chronic and recurrent low back pain L4-[address] scan in 1993, recurrent since then intermittently. Hypomagnesemia (06/22/14) Only 1.0 in the ER today. Pipe smoker Surgical History History of colonoscopy (~02/2023) with Mac S/P cardiac catheterization (05/31/19) 2020 History of cataract removal with insertion of prosthetic lens (11/23/14) History of umbilical hernia repair Status post appendectomy Status post coronary artery stent placement (09/26/16) One vessel for unstable angina Status post coronary artery bypass with autogenous graft, 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) 2017 Repair of umbilical hernia Fracture, Open Treatment ORIF-LEFT SYNDESMOSIS WITH TWO SCREWS Colonoscopy - IV Sedation Extraction of cataract 11/23/14; DR. GOINS; RIGHT EYE 12/07/14; DR. GOINS; LEFT EYE Appendectomy Family History Father Diabetes Dementia Neoplasm PANCREATIC Social History (Updated 04/01/23 @ 11:37 by Sammi Umana RN) Smoking/Tobacco Use Status: Former Tobacco Use Quit Date: 01/02/17 Pack-years: 40 Tobacco: How many years used: 40 Quit status: has quit before Smoking risk assessment performed?: Yes Alcohol Intake: current Alcohol Intake frequency: a few times a month Alcohol type: beer and hard liquor Counseling given: Yes Counseling provided: reduce to 2 or less/day Details: 2-3 oz at a time Drug use: Never Substance use type: does not use Adopted: No Caregiver/Support person: No Foster care: No Household members: none and other Details: Cats Housing: house Number of Children: 3 number of grandchildren: 4 Communication Needs: None Do you need help understanding health information?: Rarely Pets and animals: Yes Pets and animals: cat(s) Do you think of yourself as: straight/heterosexual Current gender identity: male What is your relationship status?: How often do you talk on the phone with friends or family?: three or more times per week How often do you get together with friends or relatives?: twice per week Panel score (0-1 are the most socially isolated patients): 1 What type of physical activity do you participate in: other Details: Tredmill Duration: 45-60 minutes/day Frequency: 5-6 times per week Special isi needs: No Seatbelt use: always Helmet use: Yes Helmet use: always Drive intox 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 service car driver: No Working smoke detector in home: No Fire extinguisher in home: No Carbon monox detector in home: No Do you feel safe at home: Yes Do you feel safe in your relationship?: Yes
== END 2023-08-25 15:41 | disposition home or self-care (01) ==
PROVIDERS: Emergency Provider Emergency Medicine; PCP Student in an Organized Health Care Education/Training Program
DX: R21 Rash and other nonspecific skin eruption (principal); S00.83XA Contusion of other part of head, initial encounter; I12.9 Hypertensive chronic kidney disease with stage 1 through stage 4 chronic kidney disease, or unspecified chronic kidney disease; E11.22 Type 2 diabetes mellitus with diabetic chronic kidney disease; N18.30 Chronic kidney disease, stage 3 unspecified; E11.40 Type 2 diabetes mellitus with diabetic neuropathy, unspecified; I48.91 Unspecified atrial fibrillation; Z95.1 Presence of aortocoronary bypass graft; Z79.4 Long term (current) use of insulin; Z79.82 Long term (current) use of aspirin; Z79.01 Long term (current) use of anticoagulants; Z87.891 Personal history of nicotine dependence
CPT/HCPCS: 99283

== ENCOUNTER 2023-09-12 11:55 | Emergency (ER) | payer MEDICARE, OTHER, SELFPAY ==
[2023-09-12 11:59] VITALS: BP 138/101; PULSE 49; RESP 18; TEMP 36.6; O2SAT 96
--- NOTE | 2023-09-12 12:15 | DI.RAD_ITS ---
Exam(s) XR FOOT RT COMPLETE EXAM: XR FOOT RT COMPLETE CLINICAL HISTORY: pain to dorsum of foot x 4 days, no known trauma. TECHNIQUE: 2D digital imaging was performed of the right foot. Three images were obtained. AP, obl ique and lateral views were obtained. COMPARISON: CR XR FOOT RT COMPLETE from 12/09/2022 FINDINGS: BONES: No acute fracture is present. No bony destructive lesion is seen. JOINTS: No dislocation present. Mild degenerative changes are seen in the foot. SOFT TISSUE: Vascular calcifications are present. No radiopaque foreign body is seen. No gas is see n in the soft tissues. IMPRESSION: No acute fracture, dislocation, foreign body or soft tissue gas. DATA REPOSITORY: RADIATION DOSE DELIVERED:
--- NOTE | 2023-09-12 12:39 | ED.GENADUL_ITS ---
Discharge Plan Disposition Patient Disposition: Home Condition: Stable Discharge Details Clinical Impression: Acute pain of right foot Primary Care Provider: Clare Medley ED Provider: Senait Samuel Home Meds and New Rx's Prescriptions: Continued nitroglycerin 0.4 mg tablet, sublingual 0.4 mg sublingual Q5-15M PRN Rx Instructions: do not exceed 3 doses per episode insulin aspart U-100 [Novolog FlexPen U-100 Insulin] 100 unit/mL (3 mL) insulin pen See Rx Instructions .ROUTE .COMPLEX Qty: 90 3RF Dose Instruction: INJECT 10 TO 30 UNITS BEFORE MEALS PER MEALTIME CORRECTION SCHEDULE Rx Instructions: INJECT 10 TO 30 UNITS BEFORE MEALS PER MEALTIME CORRECTION SCHEDULE losartan 25 mg tablet See Rx Instructions .ROUTE .COMPLEX Qty: 90 3RF Dose Instruction: TAKE 1 TABLET AT BEDTIME FOR DIABETES, AND TO PROTECT KIDNEYS Rx Instructions: TAKE 1 TABLET AT BEDTIME FOR DIABETES, AND TO PROTECT KIDNEYS (DME) FreeStyle [facility] 2 [facility] See Rx Instructions .ROUTE .MEDSUPPLY Qty: 1 0RF Rx Instructions: As directed Myrbetriq 50 mg tablet extended release 24 hr 50 mg PO DAILY Qty: 90 3RF furosemide 40 mg tablet 40 mg PO DAILY PRN (Reason: LEG SWELLING) Qty: 90 3RF Hold Instructions: Home Medication placed on hold at Doctor's office Rx Instructions: Re-start, 04/14 x 3-5 days levothyroxine 50 mcg tablet 50 mcg PO DAILY Qty: 90 1RF Rx Instructions: Thyroid aspirin 81 mg tablet,delayed release (DR/EC) 81 mg PO DAILY Patient Comments: 06/02/19-replaces 325mg. daily dose. [facility] [place]. JOBY Mchugh (DME) lancets [FreeStyle Lancets] [facility] See Rx Instructions .ROUTE .MEDSUPPLY Qty: 400 3RF Rx Instructions: to test BS 4X daily for DM/E11.9 and to keep A1c at or under 7.0% (DME) pen needle, diabetic [BD Ultra-Fine Amber Pen Needle] 32 gauge x 5/32 needle 1 ea Miscellaneous QID Qty: 400 3RF Rx Instructions: E11.65 to administer insulin 4x/day (DME) Blood Glucose Test Strip See Rx Instructions .MEDSUPPLY Qty: 400 3RF Rx Instructions: As directed to check blood glucose four times daily. On insulin. Dispense covered brand. amlodipine 10 mg tablet 10 mg PO DAILY Qty: 90 3RF Hold Instructions: LOW BP; LE EDEMA Rx Instructions: Blood pressure & Heart health rosuvastatin 40 mg tablet See Rx Instructions .ROUTE .COMPLEX Qty: 90 3RF Dose Instruction: TAKE 1 TABLET DAILY Rx Instructions: TAKE 1 TABLET DAILY (DME) FreeStyle Bahman 2 Sensor Kit See Rx Instructions .ROUTE .MEDSUPPLY Qty: 2 11RF Rx Instructions: As directed nitroglycerin 0.4 mg tablet, sublingual 0.4 mg SL Q5M PRN (Reason: chest pain) Qty: 90 2RF Rx Instructions: Take 1 at onset of chest pain, may repeat x2 q5 min if pain continues. cholecalciferol (vitamin D3) 1,250 mcg (50,000 unit) capsule 1,250 mcg PO QWEEK Eliquis 5 mg tablet 5 mg PO BID Qty: 180 3RF Hold Instructions: Resume on 02/06/23. Rx Instructions: PLEASE EXPLAIN WHAT HAPPENED TO 05/29/23 PRESCRIPTION? metoprolol tartrate 25 mg tablet 25 mg PO BID Qty: 180 3RF Rx Instructions: Heart insulin glargine [Lantus Solostar U-100 Insulin] 100 unit/mL (3 mL) insulin pen 55 unit Sub-Q QPM Qty: 60 3RF Rx Instructions: Or as directed for dx: E11.65 fenofibrate nanocrystallized [Tricor] 145 mg tablet 145 mg PO DAILY Qty: 90 3RF Jardiance 25 mg tablet See Rx Instructions .ROUTE .COMPLEX Qty: 90 3RF Dose Instruction: TAKE 1 TABLET EVERY MORNING Rx Instructions: TAKE 1 TABLET EVERY MORNING Discharge Instructions Additional Instructions: Please call your primary care provider's office first thing Thursday morning to schedule follow-up appointment within the next week or 2. I encourage you to elevate your foot above heart level, use Bruno bandage as needed for comfort, and apply heat/cool compresses as needed. Return to emergency care if develop new fevers associate with foot pain, swe lling/redness/warmth, numbness to your foot, or if you are very worried and need to be rechecked again immediately HPI General Date/Time Provider Initiated Documentation: 09/12/23 12:16 . HPI Narrative: Minh is a 72-year-old male with history of CHF, T2DM, HTN, and HLD who presents to the emergency department today for evaluation of right foot pain. He reports that he woke up 4 days ago with discomfort to the top of his right foot that is worsened with walking. He denies any known history of trauma. Says the pain has been consistent since onset. Denies numbness/tingling, new toe pain/swelling, ankle pain, knee pain, associated fever/chills/malaise. Says he is otherwise been feeling well. No previous history of pain in this foot. He does have a legal nurse consultant in [place] that he sees. Says his blood sugars this morning were in the 180s, says this is normal for him. Related Data Home Medications Medication Instructions Recorded Confirmed aspirin 81 mg tablet,delayed 81 mg PO DAILY 06/02/19 07/02/23 release lancets 28 gauge (FreeStyle #400 ea 02/11/21 07/02/23 Lancets) pen needle, diabetic 32 gauge x #400 ea 03/25/21 07/02/23 5/32 (BD Ultra-Fine Amber Pen Needle) flash glucose scanning reader #1 ea 11/17/21 07/02/23 (FreeStyle Bahman 2 [place]) blood sugar diagnostic (Blood #400 ea 12/13/21 07/02/23 Glucose Test strips) amlodipine 10 mg tablet 10 mg PO DAILY #90 tabs 06/09/22 07/02/23 rosuvastatin 40 mg tablet See Rx Instructions .Route 10/22/22 07/02/23 .COMPLEX #90 tabs flash glucose sensor (FreeStyle #2 ea 11/27/22 07/02/23 Bahman 2 Sensor kit) nitroglycerin 0.4 mg sublingual 0.4 mg sublingual Q5-15M PRN 01/26/23 07/02/23 tablet nitroglycerin 0.4 mg sublingual 0.4 mg sublingual Q5M PRN chest 03/30/23 07/02/23 tablet pain #90 tabs mirabegron 50 mg tablet,extended 50 mg PO DAILY #90 tabs 04/01/23 07/02/23 release 24 hr (Myrbetriq) furosemide 40 mg tablet 40 mg PO DAILY PRN LEG SWELLING 04/10/23 07/02/23 #90 tabs insulin aspart U-100 100 unit/mL See Rx Instructions .Route 05/29/23 07/02/23 (3 mL) subcutaneous pen (Novolog .COMPLEX #90 mL FlexPen U-100 Insulin aspart) losartan 25 mg tablet See Rx Instructions .Route 05/29/23 07/02/23 .COMPLEX #90 tabs cholecalciferol (vitamin D3) 1,250 1,250 mcg PO QWEEK 06/08/23 07/02/23 mcg (50,000 unit) capsule levothyroxine 50 mcg tablet 50 mcg PO DAILY #90 tab-caps 07/02/23 07/02/23 apixaban 5 mg tablet (Eliquis) 5 mg PO BID #180 tabs 07/22/23 metoprolol tartrate 25 mg tablet 25 mg PO BID #180 tab-caps 07/28/23 insulin glargine 100 unit/mL (3 55 unit (0.55 mL) subcut QPM #60 mL 07/31/23 mL) subcutaneous pen (Lantus Solostar U-100 Insulin) empagliflozin 25 mg tablet See Rx Instructions .Route 08/04/23 (Jardiance) .COMPLEX #90 tabs fenofibrate nanocrystallized 145 145 mg PO DAILY #90 tab-caps 08/04/23 mg tablet (Tricor) Previous Rx's Medication Instructions Recorded lancets 28 gauge (FreeStyle #400 ea 02/11/21 Lancets) pen needle, diabetic 32 gauge x #400 ea 03/25/2132 (BD Ultra-Fine Amber Pen Needle) flash glucose scanning reader #1 ea 11/17/21 (FreeStyle Bahman 2 [place]) blood sugar diagnostic (Blood #400 ea 12/13/21 Glucose Test strips) amlodipine 10 mg tablet 10 mg PO DAILY #90 tabs 06/09/22 rosuvastatin 40 mg tablet See Rx Instructions .Route 10/22/22 .COMPLEX #90 tabs flash glucose sensor (FreeStyle #2 ea 11/27/22 Bahman 2 Sensor kit) nitroglycerin 0.4 mg sublingual 0.4 mg sublingual Q5M PRN chest 03/30/23 tablet pain #90 tabs mirabegron 50 mg tablet,extended 50 mg PO DAILY #90 tabs 04/01/23 release 24 hr (Myrbetriq) furosemide 40 mg tablet 40 mg PO DAILY PRN LEG SWELLING 04/10/23 #90 tabs insulin aspart U-100 100 unit/mL See Rx Instructions .Route 05/29/23 (3 mL) subcutaneous pen (Novolog .COMPLEX #90 mL FlexPen U-100 Insulin aspart) losartan 25 mg tablet See Rx Instructions .Route 05/29/23 .COMPLEX #90 tabs levothyroxine 50 mcg tablet 50 mcg PO DAILY #90 tab-caps 07/02/23 apixaban 5 mg tablet (Eliquis) 5 mg PO BID #180 tabs 07/22/23 metoprolol tartrate 25 mg tablet 25 mg PO BID #180 tab-caps 07/28/23 insulin glargine 100 unit/mL (3 55 unit (0.55 mL) subcut QPM #60 mL 07/31/23 mL) subcutaneous pen (Lantus Solostar U-100 Insulin) empagliflozin 25 mg tablet See Rx Instructions .Route 08/04/23 (Jardiance) .COMPLEX #90 tabs fenofibrate nanocrystallized 145 145 mg PO DAILY #90 tab-caps 08/04/23 mg tablet (Tricor) Allergies Allergy/AdvReac Type Severity Reaction Status Date / Time No Known Allergies Allergy Verified 09/12/23 12:01 General Stated Complaint: Orthopedic CHRISTIANE: 4 Review of Systems Narrative: see HPI Exam Const General: cooperative, healthy appearing, comfortable and no acute distress Extrem General: normal to inspection Right lower extremity: normal to inspection, full ROM, normal capillary refill and foot Details: normal capillary refill and tenderness (diffuse, no point tenderness) Location: of the dorsal foot; no unusual warmth, no laceration, no ecchymosis, no crepitus, no foreign bodies and no puncture wound; no edema and joint enlargement noted Course Vital Signs Vital signs: Vital Signs Temperature 36.6 C 09/12/23 11:59 Pulse 49 L 09/12/23 11:59 Respiratory Rate 18 09/12/23 11:59 Blood Pressure 138/101 H 09/12/23 11:59 Pulse Oximetry 96 09/12/23 11:59 Temperature 36.6 C 09/12/23 11:59 Temperature Source Skin 09/12/23 11:59 Pulse 49 L 09/12/23 11:59 Respiratory Rate 18 09/12/23 11:59 Respiratory Effort Normal 09/12/23 12:01 Blood Pressure 138/101 H 09/12/23 11:59 Blood Pressure Position Sitting 09/12/23 11:59 Pulse Oximetry 96 09/12/23 11:59 Oxygen Delivery Method Room Air 09/12/23 11:59 Oxygen Flow Rate 0 09/12/23 11:59 Medical Decision Making Minh is a 72-year-old male with history of CHF, T2DM, HTN, and HLD who presents to the emergency department today for evaluation of right foot pain. He reports that he woke up 4 days ago with discomfort to the top of his right foot that is worsened with walking. He denies any known history of trauma. Says the pain has been consistent since onset. Denies numbness/tingling, new toe pain/swelling, ankle pain, knee pain, associated fever/chills/malaise. Says he is otherwise been feeling well. No previous history of pain in this foot. He does have a legal nurse consultant in [place] that he sees. Says his blood sugars this morning were in the 180s, says this is normal for him. Physical exam reassuring. No point tenderness, diffuse tenderness with palpation of dorsum of foot. Painless range of motion to the toes. Distal pulses intact. No obvious swelling or erythema. Toenails are thickened. No pain with palpation or movement of ankle or knee. DDx includes was not limited to stress fracture, soft tissue injury/strain, diabetic neuropathy, osteoarthritis. No red flags concerning for infectious etiology or vascular compromise I independently interpreted the following tests: Right foot x-ray, no obvious fracture or dislocation. This was confirmed by [facility] radiologist While in the emergency department Bruno bandage was placed for comfort. Reviewed discharge instructions with patient, including importance of elevating foot, heat/ice, and follow-up with PCP as needed. Reviewed red flags indicate need for return to emergency care. Quality:SDOH Health Related Social Needs: No Data to Display PFSH All Active Problems (Updated 09/12/23 @ 13:53 by Senait Rodas) Acute pain of right foot (Acute) Coordination of complex care (Acute) Chart Review ID several Dx/Tx needing re-assessment or Hx requiring re- evaluation ([facility] ap[facility]?)(Bi-Pap ordered 12/2023, rec'd?)(Fe Infusion)(Vit D started? re-checked?)(++) Bradycardia (Acute) Noted for some time (1/2 dose trialed in 2021 before change in PCP)(chart reviewed, 05/30/23: dizziness incompletely evaluated 2' pt leaving [facility] AMA.. ACS ruled out 01/08-12/23.. Metoprolol decreased from 25mg BID per [facility], but maybe NOT implemented? ..and missed in FU! 05/30/23, sung Diuresis (Acute) actively diuresing, good results with q 2-3 days lasix (May 2023). Hx exacerbated CHF in Fall 2022 (AMA 2' intolerance diuretics, unable to get to bathroom; poor sleep 2' noise + uncomfortable bed)((Rx if HOSPTLZATN needed .. ik, 04/2023)) Pitting edema (Chronic) improved with diuretics (mar-apr 2023) .. cont q2 days.. [ ] cardio [facility] [place] re view/eval for ortho surgery Low vitamin D level (Acute) Very low, 7.9! Essential hypertension (Chronic 01/31/13) CHF (congestive heart failure), NYHA class II (Chronic) EF 40% (12/2022), decreased from 2019 .. Clinical Dx ClassII CKD (chronic kidney disease) stage 3, GFR 30-59 ml/min (Acute) History of kidney injury (Acute) GLENYS 2' furosemide, 04/17/23, but needed for HF/Edema.. Seeing Nephrology (quarterly) Decreased dorsalis pedis pulse (Acute) per Pod, 01/13/23 (2/4) Absence of posterior tibial pulse (Acute) per Pod, 01/13/23 Coronary artery disease (Chronic) 3-vessel (LAD, LCX, RCA) Atrial fibrillation (Chronic) Apixaban 06/22/2019 Acute exacerbation of congestive heart failure (Acute) ED --> Hospitalized for diuresis, but no mosqueda & pt unable to sleep (left AMA) Cardiomegaly (Acute) CXR; ECHO 05/2019 [facility] [place]--LVEF 53%, +LVH (mild), no significant valvular disease; stable compared with 2017 study Anemia (Chronic) Hx of iron deficiency anemia (Acute) improved with iron infusion, but did not feel better (possible iron infusions exacerb HF? ~ Mar--Apr 2023)(doubtful based on no IVF, but possible) Fatigue (Acute) Worsened per pt, affecting ADL .. not just de-conditioning? Hyperlipidemia (Chronic 08/17/12) Osteoarthritis of right knee (Acute) DEPO MEDROL 08/14/22 Arthritis of both knees (Chronic) MERRITT (obstructive sleep apnea) (Chronic) Bi-PAP 07/23/19 Diabetes mellitus with neuropathy (Chronic) Reduced monofilament 06/24/2019 Goal A1C 7.5% or less Uncontrolled diabetes mellitus (Acute) IMPROVED since CGM! and diet improvements. Mtg with nutrition team. Goal </=7.5% Current use of insulin (Chronic) Acquired hypothyroidism (Chronic 10/28/16) High TSH, but WNL T4 (2021) .. re-checking Cervical disc disorder with myelopathy (Acute) right arm Overactive bladder (Acute) Myrbetriq RE-started, 03/2023.. rptd improved @ 04/10/23 ov, ik .. Oxybutynin, discontinued 06/24/19 in favor of optimizing DMT2 management Unsteady gait (Acute) Dizziness incompletely evaluated 2' pt leaving [facility] AMA.. ACS ruled out 01/08- 12/23.. Metoprolol decreased from 25mg BID per [facility], but maybe NOT implemented? ..and missed in FU! 05/30/23, ik Ataxia (Acute) Asymmetrical sensorineural hearing loss (Acute) Cognitive impairment (Acute) Forgetting, but using notes/print-outs .. ex(?)- helps .. Nail dystrophy (Acute) Onychomycosis (Acute) Tinea pedis (Acute) Blisters of multiple sites (Acute ~01/13/23) 01/13/23 [facility] note- Dr. Barker: Seropurulent Blisters, B/L legs.HE Metatarsalgia of left foot (Acute) Pain of right great toe (Acute) Medical History PAD (peripheral artery disease) Left, per OSVALDO (12/2022) Stopped smoking with greater than 20 pack year history [address] Screening, 07/16/20 Epiretinal membrane (~01/2023) right eye Slow heart rate Noted for some time (1/2 dose trialed in 2021 before change in PCP)(chart reviewed, 05/30/23: dizziness incompletely evaluated 2' pt leaving [facility] AMA.. ACS ruled out 01/08-12/23.. Metoprolol decreased from 25mg BID per [facility], but maybe NOT implemented? ..and missed in FU! 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 Chronic and recurrent low back pain L4-[address] scan in 1993, recurrent since then intermittently. Hypomagnesemia (06/22/14) Only 1.0 in the ER today. Pipe smoker Surgical History History of colonoscopy (~02/2023) with Mac S/P cardiac catheterization (05/31/19) 2019 History of cataract removal with insertion of prosthetic lens (11/23/14) History of umbilical hernia repair Status post appendectomy Status post coronary artery stent placement (09/26/16) One vessel for unstable angina Status post coronary artery bypass with autogenous graft, 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) 2016 Repair of umbilical hernia Fracture, Open Treatment ORIF-LEFT SYNDESMOSIS WITH TWO SCREWS Colonoscopy - IV Sedation Extraction of cataract 11/23/14; DR. GOINS; RIGHT EYE 12/07/14; DR. GOINS; LEFT EYE Appendectomy Family History Father Diabetes Dementia Neoplasm PANCREATIC Social History (Updated 04/01/23 @ 11:37 by Sammi Umana, PARI) Smoking/Tobacco Use Status: Former Tobacco Use Quit Date: 01/02/17 Pack-years: 40 Tobacco: How many years used: 40 Quit status: has quit before Smoking risk assessment performed?: Yes Alcohol Intake: current Alcohol Intake frequency: a few times a month Alcohol type: beer and hard liquor Counseling given: Yes Counseling provided: reduce to 2 or less/day Details: 2-3 oz at a time Drug use: Never Substance use type: does not use Adopted: No Caregiver/Support person: No Foster care: No Household members: none and other Details: Cats Housing: house Number of Children: 3 number of grandchildren: 4 Communication Needs: None Do you need help understanding health information?: Rarely Pets and animals: Yes Pets and animals: cat(s) Do you think of yourself as: straight/heterosexual Current gender identity: male What is your relationship status?: How often do you talk on the phone with friends or family?: three or more times per week How often do you get together with friends or relatives?: twice per week Panel score (0-1 are the most socially isolated patients): 1 What type of physical activity do you participate in: other Details: Tredmill Duration: 45-60 minutes/day Frequency: 5-6 times per week Special isi needs: No Seatbelt use: always Helmet use: Yes Helmet use: always Drive intox 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 dolly driver: No Working smoke detector in home: No Fire extinguisher in home: No Carbon monox detector in home: No Do you feel safe at home: Yes Do you feel safe in your relationship?: Yes
--- NOTE | 2023-09-12 13:37 | DI.VRAD_ITS ---
PROCEDURE INFORMATION: Exam: XR Right Foot Exam date and time: 09/12/2023 12:55 PM Age: 72 years old Clinical indication: Injury or trauma; Other: Cat scratch, no trauma; Laceration; Right; Foreign body involvement not specified; Injury date: 09/09/23; Injury details: Best images possible, PT not able to stand on foot. Cat scratch to top of foot 4 days ago, redness and swelling entire foot TECHNIQUE: Imaging protocol: Radiologic exam of the right foot. Views: 3 or more views. Non-weightbearing AP, oblique and lateral images. COMPARISON: CR XR FOOT RT COMPLETE 12/09/2022 3:57 PM FINDINGS: Bones/joints: Mild interphalangeal joint space narrowing spurring particularly of the first interphalangeal joint. Calcification along the lateral aspect of the third metatarsophalangeal joint probably capsule. Examination negative fracture dislocation. There is no periostitis or osteolysis. Soft tissues: Unremarkable. No soft gas or foreign body. IMPRESSION: No acute findings or significant change since examination nine months ago. Dictated and Authenticated by: Isiah Macdonald MD. Ordering:LIYAH Sapp MD
--- NOTE | 2023-09-12 13:56 | NUR.NOTE ---
Referral faxed to PCP for foot pain in 1 to 2 weeks. Nursing Note:
== END 2023-09-12 14:04 | disposition home or self-care (01) ==
PROVIDERS: Emergency Provider Nurse Practitioner Family; PCP Student in an Organized Health Care Education/Training Program
DX: M79.671 Pain in right foot (principal); I11.0 Hypertensive heart disease with heart failure; I50.9 Heart failure, unspecified; E11.9 Type 2 diabetes mellitus without complications; I25.10 Atherosclerotic heart disease of native coronary artery without angina pectoris; E78.5 Hyperlipidemia, unspecified; Z95.1 Presence of aortocoronary bypass graft; Z95.5 Presence of coronary angioplasty implant and graft; Z79.84 Long term (current) use of oral hypoglycemic drugs; Z79.4 Long term (current) use of insulin; Z79.82 Long term (current) use of aspirin; Z79.01 Long term (current) use of anticoagulants; Z87.891 Personal history of nicotine dependence
CPT/HCPCS: 99283; 73630

== ENCOUNTER → 2023-09-21 10:14 | Outpatient (BNVA) | payer MEDICARE, OTHER, SELFPAY | PROVIDERS: PCP Student in an Organized Health Care Education/Training Program; Referring Provider Student in an Organized Health Care Education/Training Program; Visit Provider Student in an Organized Health Care Education/Training Program | DX: M17.11 Unilateral primary osteoarthritis, right knee (principal); E11.65 Type 2 diabetes mellitus with hyperglycemia; I25.10 Atherosclerotic heart disease of native coronary artery without angina pectoris; I50.22 Chronic systolic (congestive) heart failure | CPT/HCPCS: 99215 ==

== ENCOUNTER → 2023-10-06 15:40 | Outpatient (BNVA) | payer MEDICARE, OTHER, SELFPAY | PROVIDERS: PCP Student in an Organized Health Care Education/Training Program; Visit Provider Nurse Practitioner Gerontology | DX: N32.81 Overactive bladder (principal) | CPT/HCPCS: 99213 ==

== ENCOUNTER 2023-10-08 14:50 | Outpatient (CLI) | payer MEDICARE, OTHER, SELFPAY ==
[2023-10-08 14:12] LABS: HGB 13.1 g/dL (13.5-17.5)
[2023-10-08 14:53] LABS: Anion Gap 10.4 mmol/L (3-11); BUN 57 mg/dL (7-18); CO2 23.6 mmol/L (21.0-32.0); Calcium 9.7 mg/dL (8.5-10.1); Chloride 106 mmol/L (98-107); Estimated GFR 35.24 (mL/min/1.73m2); Ferritin 162 ng/mL (26-388); Glucose 162 mg/dL (74-106); Sodium 140 mmol/L (136-145)
[2023-10-08 15:04] LABS: PHOSPHORUS 3.5 mg/dL (2.6-4.7)
[2023-10-08 15:21] LABS: Iron 93 ug/dL (65-175); Total Iron Binding Capacity 437 ug/dL (250-450); Transferrin Sat 21 % (20-55)
== END 2023-10-08 14:51 | disposition home or self-care (01) ==
LOC: LBO 14:50
PROVIDERS: PCP Student in an Organized Health Care Education/Training Program; Visit Provider Student in an Organized Health Care Education/Training Program
DX: N18.32 Chronic kidney disease, stage 3b (principal); E55.9 Vitamin D deficiency, unspecified; D64.9 Anemia, unspecified; Z91.89 Other specified personal risk factors, not elsewhere classified
CPT/HCPCS: 36415; 80048; 82728; 83540; 83550; 83735; 84100; 85018

== ENCOUNTER 2023-11-09 13:07 | Outpatient (CLI) | payer MEDICARE, OTHER, SELFPAY | END 2023-11-09 13:08 | disposition home or self-care (01) | PROVIDERS: PCP Student in an Organized Health Care Education/Training Program; Visit Provider Student in an Organized Health Care Education/Training Program | DX: I48.20 Chronic atrial fibrillation, unspecified (principal); R00.1 Bradycardia, unspecified | CPT/HCPCS: 93226 ==

== ENCOUNTER 2023-11-27 13:17 | Outpatient (CLI) | payer MEDICARE, OTHER, SELFPAY ==
--- NOTE | 2023-11-27 13:44 | W.CARDEVENT ---
Date of service: 11/27/23 Time of Service: 13:45 Cardiac Event Recorder Referring Provider:: Clare Medley Indications:: Atrial fibrillation Cardiac Event Note: This is a cardiac event monitor. Patient was monitored for 13 days and 13 hours. Rhythm throughout was atrial fibrillation. Average heart rate was 58. Minimum was 26, maximum 118 There were rare ventricular ectopic beats there was no high-grade AV block, no pauses greater than 3 seconds Reported symptoms corresponded to atrial fibrillation
== END 2023-11-27 13:18 | disposition home or self-care (01) ==
LOC: CARDOPNVT 13:17
PROVIDERS: PCP Student in an Organized Health Care Education/Training Program; Visit Provider Internal Medicine Cardiovascular Disease
DX: I48.91 Unspecified atrial fibrillation (principal)
CPT/HCPCS: 93248

== ENCOUNTER 2023-12-03 08:43 | Outpatient (CLI) | payer MEDICARE, OTHER, SELFPAY | END 2023-12-03 08:44 | disposition home or self-care (01) | LOC: DI.CARD 08:44 | PROVIDERS: PCP Student in an Organized Health Care Education/Training Program; Visit Provider Internal Medicine Cardiovascular Disease | DX: I25.10 Atherosclerotic heart disease of native coronary artery without angina pectoris (principal); R00.1 Bradycardia, unspecified; I48.20 Chronic atrial fibrillation, unspecified; I42.9 Cardiomyopathy, unspecified; I25.110 Atherosclerotic heart disease of native coronary artery with unstable angina pectoris | CPT/HCPCS: 93010 ==

== ENCOUNTER → 2023-12-03 14:06 | Outpatient (BNVA) | payer MEDICARE, OTHER, SELFPAY | PROVIDERS: PCP Student in an Organized Health Care Education/Training Program; Referring Provider Student in an Organized Health Care Education/Training Program; Visit Provider Internal Medicine Cardiovascular Disease | DX: I48.21 Permanent atrial fibrillation (principal); I42.9 Cardiomyopathy, unspecified; I25.110 Atherosclerotic heart disease of native coronary artery with unstable angina pectoris | CPT/HCPCS: 99213 ==

== ENCOUNTER 2024-02-05 01:47 | Outpatient (CLI) | payer MEDICARE, OTHER, SELFPAY ==
[2024-02-05 12:57] LABS: HCT 40.8 % (40.0-50.0); HGB 13.5 g/dL (13.5-17.5); MCH 32.6 pg (27.0-33.0); MCHC 33.1 % (32.0-36.0); MCV 99 fL (80-95); MPV 11.7 fL (8.0-11.0); Platelet Count 250 10^3/uL (130-400); RBC 4.14 10^6/uL (4.36-5.78); RDW 12.8 % (11.8-14.1); WBC 7.82 10^3/uL (4.4-10.8)
[2024-02-05 13:56] LABS: Anion Gap 12.5 mmol/L (3-11); BUN 48 mg/dL (7-18); CO2 22.5 mmol/L (21.0-32.0); CREATININE 1.7 mg/dL (0.70-1.30); Calcium 9.7 mg/dL (8.5-10.1); Chloride 107 mmol/L (98-107); Estimated GFR 42.57 (mL/min/1.73m2); Glucose 157 mg/dL (74-106); PHOSPHORUS 3.5 mg/dL (2.6-4.7); Potassium 4.8 mmol/L (3.5-5.1); Sodium 142 mmol/L (136-145); TSH (W/Ref FT4) 2.83 uIU/mL (0.36-3.74)
[2024-02-05 16:16] LABS: Vitamin D 25 Total 21.4 ng/mL (30-100)
== END 2024-02-05 01:48 | disposition home or self-care (01) ==
LOC: LBO 01:49
PROVIDERS: PCP Student in an Organized Health Care Education/Training Program; Visit Provider Student in an Organized Health Care Education/Training Program
DX: E03.9 Hypothyroidism, unspecified (principal); R79.89 Other specified abnormal findings of blood chemistry; K90.9 Intestinal malabsorption, unspecified; N18.32 Chronic kidney disease, stage 3b; E55.9 Vitamin D deficiency, unspecified; N18.30 Chronic kidney disease, stage 3 unspecified; D64.9 Anemia, unspecified; I10 Essential (primary) hypertension; Z91.89 Other specified personal risk factors, not elsewhere classified
CPT/HCPCS: 36415; 80048; 82306; 85027; 83735; 84100; 84443

== ENCOUNTER → 2024-04-28 13:04 | Outpatient (BNVA) | payer MEDICARE, OTHER, SELFPAY | PROVIDERS: PCP Student in an Organized Health Care Education/Training Program; Visit Provider Nurse Practitioner Gerontology | DX: N32.81 Overactive bladder (principal); R39.9 Unspecified symptoms and signs involving the genitourinary system | CPT/HCPCS: 51798; 99213 ==

== ENCOUNTER 2024-04-28 13:51 | Emergency (ER) | payer MEDICARE, OTHER, SELFPAY ==
[2024-04-28 14:02] VITALS: BP 126/65; PULSE 59; RESP 16; TEMP 37.1; O2SAT 98
--- NOTE | 2024-04-28 14:26 | ED.GENADUL_ITS ---
Discharge Plan Disposition Patient Disposition: Home Condition: Stable Discharge Details Clinical Impression: Head injury Primary Care Provider: Clare Medley ED Provider: Amelia Orozco Home Meds and New Rx's Prescriptions: No Action nitroglycerin 0.4 mg tablet, sublingual 0.4 mg sublingual Q5-15M PRN Rx Instructions: do not exceed 3 doses per episode insulin aspart U-100 [Novolog FlexPen U-100 Insulin] 100 unit/mL (3 mL) insulin pen See Rx Instructions .ROUTE .COMPLEX Qty: 90 3RF Dose Instruction: INJECT 10 TO 30 UNITS BEFORE MEALS PER MEALTIME CORRECTION SCHEDULE Rx Instructions: INJECT 10 TO 30 UNITS BEFORE MEALS PER MEALTIME CORRECTION SCHEDULE losartan 25 mg tablet See Rx Instructions .ROUTE .COMPLEX Qty: 90 3RF Dose Instruction: TAKE 1 TABLET AT BEDTIME FOR DIABETES, AND TO PROTECT KIDNEYS Rx Instructions: TAKE 1 TABLET AT BEDTIME FOR DIABETES, AND TO PROTECT KIDNEYS (DME) FreeStyle Bahman 2 [place] Misc See Rx Instructions .ROUTE .MEDSUPPLY Qty: 1 0RF Rx Instructions: As directed furosemide 40 mg tablet 40 mg PO DAILY PRN (Reason: LEG SWELLING) Qty: 90 3RF Rx Instructions: Re-start, 04/14 x 3-5 days (DME) Knee Brace - STABILIZING See Rx Instructions .Route .MEDSUPPLY Qty: 1 1RF Rx Instructions: One RT KNEE STABILIZING BRACE; mirabegron [Myrbetriq] 50 mg tablet extended release 24 hr 50 mg PO DAILY Qty: 90 3RF aspirin 81 mg tablet,delayed release (DR/EC) 81 mg PO DAILY Patient Comments: 06/02/19-replaces 325mg. daily dose. [facility] [place]. JOBY Mchugh (DME) lancets [FreeStyle Lancets] 28 gauge misc See Rx Instructions .ROUTE .MEDSUPPLY Qty: 400 3RF Rx Instructions: to test BS 4X daily for DM/E11.9 and to keep A1c at or under 7.0% (DME) pen needle, diabetic [BD Ultra-Fine Amber Pen Needle] 32 gauge x 32 needle 1 ea Miscellaneous QID Qty: 400 3RF Rx Instructions: E11.65 to administer insulin 4x/day (DME) Blood Glucose Test Strip See Rx Instructions .MEDSUPPLY Qty: 400 3RF Rx Instructions: As directed to check blood glucose four times daily. On insulin. Dispense covered brand. (DME) FreeStyle Bahman 2 Sensor Kit See Rx Instructions .ROUTE .MEDSUPPLY Qty: 2 11RF Rx Instructions: As directed nitroglycerin 0.4 mg tablet, sublingual 0.4 mg SL Q5M PRN (Reason: chest pain) Qty: 90 2RF Rx Instructions: Take 1 at onset of chest pain, may repeat x2 q5 min if pain continues. Eliquis 5 mg tablet 5 mg PO BID Qty: 180 3RF Rx Instructions: PLEASE EXPLAIN WHAT HAPPENED TO 05/29/23 PRESCRIPTION? metoprolol tartrate 25 mg tablet 25 mg PO BID Qty: 180 3RF Rx Instructions: Heart insulin glargine [Lantus Solostar U-100 Insulin] 100 unit/mL (3 mL) insulin pen 55 unit Sub-Q QPM Qty: 60 3RF Rx Instructions: Or as directed for dx: E11.65 Jardiance 25 mg tablet See Rx Instructions .ROUTE .COMPLEX Qty: 90 3RF Dose Instruction: TAKE 1 TABLET EVERY MORNING Rx Instructions: TAKE 1 TABLET EVERY MORNING rosuvastatin 40 mg tablet See Rx Instructions .ROUTE .COMPLEX Qty: 90 3RF Dose Instruction: TAKE 1 TABLET DAILY Rx Instructions: TAKE 1 TABLET DAILY cholecalciferol (vitamin D3) 1,250 mcg (50,000 unit) capsule 1,250 mcg PO QWEEK Qty: 10 0RF Rx Instructions: High dose Vit D, WEEKLY, per Nephro (unless already sent in?) ergocalciferol (vitamin D2) 1,250 mcg (50,000 unit) capsule 1,250 mcg PO QWEEK Rx Instructions: High dose Vit D, WEEKLY, per Nephro (unless already sent in?) levothyroxine 50 mcg tablet See Rx Instructions .ROUTE .COMPLEX Qty: 90 0RF Dose Instruction: TAKE 1 TABLET DAILY FOR THYROID Rx Instructions: TAKE 1 TABLET DAILY FOR THYROID fenofibrate nanocrystallized [Tricor] 145 mg tablet 145 mg PO DAILY Qty: 90 3RF semaglutide 1 mg/dose (4 mg/3 mL) pen injector 1 mg subcut QWEEK Qty: 3 5RF Discharge Instructions Instructions: Minor Head Injury, Adult ED Additional Instructions: Take extra caution to avoid similar injury. Follow-up with your primary care doctor and return to the emergency department with any worsening symptoms or any other concerns. HPI General Date/Time Provider Initiated Documentation: 04/28/24 13:55 . HPI Narrative: The patient is a 73-year-old male with history of coronary artery disease, diabetes, neuropathy on Eliquis who comes to the emergency department for headache, stiff neck and nausea after a fall. Reports that 4 days ago he was closing the door of his wood stove when he lost his balance and hit the top of his head on the bricks by the wood stove. Denies any loss of consciousness but states he was really foggy after. Reports he was feeling nauseous as well but denies vomiting. Reports his neck was very stiff but this is better now. Reports he had taken Tylenol which has helped. Reports he developed a black eye today out of nowhere and decided to get checked out. Denies history of similar type problem in the past. Reports he otherwise feels well. Denies injury elsewhere. Reports his vision is a little bit blurry but not too bad. Denies eye pain with this. Denies abdominal pain. Denies chest pain. Denies nasal congestion or stuffiness to his ears. Denies nose pain. Related Data Home Medications ?Medication ?Instructions ?Recorded ?Confirmed aspirin 81 mg tablet,delayed 81 mg PO DAILY 06/02/19 04/28/24 release lancets 28 gauge (FreeStyle #400 ea 02/11/21 04/28/24 Lancets) pen needle, diabetic 32 gauge x #400 ea 03/25/21 04/28/24/32 (BD Ultra-Fine Amber Pen Needle) flash glucose scanning reader #1 ea 11/17/21 04/28/24 (FreeStyle Bahman 2 [place]) blood sugar diagnostic (Blood #400 ea 12/13/21 04/28/24 Glucose Test strips) flash glucose sensor (FreeStyle #2 ea 11/27/22 04/28/24 Bahman 2 Sensor kit) nitroglycerin 0.4 mg sublingual 0.4 mg sublingual Q5-15M PRN 01/26/23 04/28/24 tablet nitroglycerin 0.4 mg sublingual 0.4 mg sublingual Q5M PRN chest 03/30/23 04/28/24 tablet pain #90 tabs furosemide 40 mg tablet 40 mg PO DAILY PRN LEG SWELLING 04/10/23 04/28/24 #90 tabs insulin aspart U-100 100 unit/mL See Rx Instructions .Route 05/29/23 04/28/24 (3 mL) subcutaneous pen (Novolog .COMPLEX #90 mL FlexPen U-100 Insulin aspart) losartan 25 mg tablet See Rx Instructions .Route 05/29/23 04/28/24 .COMPLEX #90 tabs apixaban 5 mg tablet (Eliquis) 5 mg PO BID #180 tabs 07/22/23 04/28/24 metoprolol tartrate 25 mg tablet 25 mg PO BID #180 tab-caps 07/28/23 04/28/24 insulin glargine 100 unit/mL (3 55 unit (0.55 mL) subcut QPM #60 mL 07/31/23 04/28/24 mL) subcutaneous pen (Lantus Solostar U-100 Insulin) empagliflozin 25 mg tablet See Rx Instructions .Route 08/04/23 04/28/24 (Jardiance) .COMPLEX #90 tabs rosuvastatin 40 mg tablet See Rx Instructions .Route 09/16/23 04/28/24 .COMPLEX #90 tabs cholecalciferol (vitamin D3) 1,250 1,250 mcg PO QWEEK #10 caps 09/28/23 04/28/24 mcg (50,000 unit) capsule ergocalciferol (vitamin D2) 1,250 1,250 mcg PO QWEEK 09/30/23 04/28/24 mcg (50,000 unit) capsule Knee Brace - STABILIZING #1 ea 10/25/23 04/28/24 levothyroxine 50 mcg tablet See Rx Instructions .Route 01/21/24 04/28/24 .COMPLEX #90 tabs fenofibrate nanocrystallized 145 145 mg PO DAILY #90 tab-caps 02/24/24 04/28/24 mg tablet (Tricor) semaglutide 1 mg/dose (4 mg/3 mL) 1 mg (0.75 mL) subcut QWEEK #3 mL 04/14/24 04/28/24 subcutaneous pen injector mirabegron 50 mg tablet,extended 50 mg PO DAILY #90 tabs 04/28/24 04/28/24 release 24 hr (Myrbetriq) Previous Rx's ?Medication ?Instructions ?Recorded lancets 28 gauge (FreeStyle #400 ea 02/11/21 Lancets) pen needle, diabetic 32 gauge x #400 ea 03/25/21 (BD Ultra-Fine Amber Pen Needle) flash glucose scanning reader #1 ea 11/17/21 (FreeStyle Bahman 2 [place]) blood sugar diagnostic (Blood #400 ea 12/13/21 Glucose Test strips) flash glucose sensor (FreeStyle #2 ea 11/27/22 Bahman 2 Sensor kit) nitroglycerin 0.4 mg sublingual 0.4 mg sublingual Q5M PRN chest 03/30/23 tablet pain #90 tabs furosemide 40 mg tablet 40 mg PO DAILY PRN LEG SWELLING 04/10/23 #90 tabs insulin aspart U-100 100 unit/mL See Rx Instructions .Route 05/29/23 (3 mL) subcutaneous pen (Novolog .COMPLEX #90 mL FlexPen U-100 Insulin aspart) losartan 25 mg tablet See Rx Instructions .Route 05/29/23 .COMPLEX #90 tabs apixaban 5 mg tablet (Eliquis) 5 mg PO BID #180 tabs 07/22/23 metoprolol tartrate 25 mg tablet 25 mg PO BID #180 tab-caps 07/28/23 insulin glargine 100 unit/mL (3 55 unit (0.55 mL) subcut QPM #60 mL 07/31/23 mL) subcutaneous pen (Lantus Solostar U-100 Insulin) empagliflozin 25 mg tablet See Rx Instructions .Route 08/04/23 (Jardiance) .COMPLEX #90 tabs rosuvastatin 40 mg tablet See Rx Instructions .Route 09/16/23 .COMPLEX #90 tabs cholecalciferol (vitamin D3) 1,250 1,250 mcg PO QWEEK #10 caps 09/28/23 mcg (50,000 unit) capsule Knee Brace - STABILIZING #1 ea 10/25/23 levothyroxine 50 mcg tablet See Rx Instructions .Route 01/21/24 .COMPLEX #90 tabs fenofibrate nanocrystallized 145 145 mg PO DAILY #90 tab-caps 02/24/24 mg tablet (Tricor) semaglutide 1 mg/dose (4 mg/3 mL) 1 mg (0.75 mL) subcut QWEEK #3 mL 04/14/24 subcutaneous pen injector mirabegron 50 mg tablet,extended 50 mg PO DAILY #90 tabs 04/28/24 release 24 hr (Myrbetriq) Allergies Allergy/AdvReac Type Severity Reaction Status Date / Time No Known Allergies Allergy Verified 01/08/24 11:20 General Stated Complaint: HeadInjury CHRISTIANE: 3 Review of Systems Narrative: Review of systems are negative except as mentioned. Constitutional Constitutional: Denies fever(s) Eyes Eyes: Reports blurry vision, Denies diplopia and Reports other (No eye pain.) ENT Ears, Nose, Mouth, and Throat: Denies nasal congestion and Denies nose pain Cardiovascular Cardiovascular: Denies chest pain and Denies dyspnea Respiratory Respiratory: Denies dyspnea Gastrointestinal Gastrointestinal: Reports nausea and Denies vomiting Musculoskeletal Comments: Patient admitted to neck stiffness but denies neck pain now. Denies pain to his arms or legs or his ribs. Denies facial pain. Denies pain to his nose. Integumentary/Breasts Comments: Admits to bruising to skin around both eyes. Neurologic Comments: Reports he was a little foggy immediately after the injury but denies feeling this way now. He denies any headache. Exam Const General: cooperative and not in acute distress Orientation: alert, awake and oriented x3 HENMT Head: skull fracture palpable and no scalp tenderness Head images: 2 1. There is swelling to this region without overlying erythema or increased warmth to touch or crepitus. Face and sinus: other (No nasal bone tenderness is noted to palpation. No nasal septal hematoma n) Face images: 2 1. Ecchymoses to this region is noted. 2. Ecchymosis to this region is noted. 3. Ecchymosis to this region is noted. 4. Ecchymosis to this region is noted. 5. Ecchymosis to this region is noted. Eyes Other: Pupils are round, equal and reactive. He has no extraocular muscle entrapment noted. No visual field loss identified. He has no proptosis. Neck Other: No midline C-spine tenderness is noted to palpation. No paraspinal neck tenderness is noted to palpation either. Chest Other: No chest wall tenderness is noted to palpation. Resp Effort & Inspection: normal respiratory effort and able to speak in complete sentences Auscultation: clear to auscultation bilaterally Cardio Rate: regular rate Rhythm: regular rhythm GI Palpation: soft and nontender Extrem Other: No tenderness is noted to palpation to bilateral upper extremities. No midline lumbar thoracic spine tenderness is noted to palpation. Course Although the injury happened 4 days ago because the patient is on a blood thinning medication and complained of nausea, head fogginess, neck stiffness I ordered imaging study of his head and C-spine regardless. Vital Signs Vital signs: Vital Signs Temperature 37.1 C 04/28/24 14:02 Pulse 59 L 04/28/24 14:02 Respiratory Rate 16 04/28/24 14:02 Blood Pressure 126/65 04/28/24 14:02 Pulse Oximetry 98 04/28/24 14:02 Temperature 37.1 C 04/28/24 14:02 Pulse 59 L 04/28/24 14:02 Respiratory Rate 16 04/28/24 14:02 Respiratory Effort Normal 04/28/24 14:20 Respiratory Depth Normal 04/28/24 14:20 Respiratory Pattern Normal 04/28/24 14:20 Blood Pressure 126/65 04/28/24 14:02 Pulse Oximetry 98 04/28/24 14:02 Pain Level 4 04/28/24 14:02 Medical Decision Making Imaging studies are back and patient is found to have no acute finding. I have updated the patient on workup result and of plan for discharge. He is encouraged to exercise extra caution in the future, follow-up with his primary care doctor and return to the emergency department with any worsening symptoms or any other concerns. Imaging Data Radiologic Study: Imaging: CT Scan (CT head and C-spine) Radiologist's impression: Head CT: No acute intracranial abnormality.Prominent lateral ventricles which appear stable. Small superior frontal scalp hematoma. C-spine CT: Degenerative changes, no acute abnormality. Quality:SDOH Health Related Social Needs: 2 No Data to Display PFSH All Active Problems (Updated 04/28/24 @ 15:36 by Amelia Orozco DO) Head injury (Acute) Peripheral sensory neuropathy (Acute) Hammer toes, bilateral (Acute) Osteoarthritis of both knees (Acute) Laxity of knee joint (Acute) Sensation of knee instability (Acute) Unstable right knee (Acute) Cardiomyopathy (Acute) Toenail deformity (Acute) Coordination of complex care (Acute) Chart Review ID several Dx/Tx needing re-assessment or Hx requiring re- evaluation ([facility] dec?)(Bi-Pap ordered 12/2023, rec'd?)(Fe Infusion)(Vit D started? re-checked?)(++) Bradycardia (Acute) Noted for some time (1/2 dose trialed in 2021 before change in PCP)(chart reviewed, 05/30/23: dizziness incompletely evaluated 2' pt leaving [facility] AMA.. ACS ruled out 01/08-12/23.. Metoprolol decreased from 25mg BID per [facility], but maybe NOT implemented? ..and missed in FU! 05/30/23, sung Diuresis (Acute) actively diuresing, good results with q 2-3 days lasix (May 2023). Hx exacerbated CHF in Fall 2022 (AMA 2' intolerance diuretics, unable to get to bathroom; poor sleep 2' noise + uncomfortable bed)((Rx if HOSPTLZATN needed .. ik, 04/2023)) Pitting edema (Chronic) improved with diuretics (mar-apr 2023) .. cont q2 days.. [ ] cardio [facility] review/eval for ortho surgery Low vitamin D level (Acute) Very low, 7.9! Essential hypertension (Chronic 01/31/13) CHF (congestive heart failure), NYHA class II (Chronic) EF 40% (12/2022), decreased from 2020 .. Clinical Dx ClassII CKD (chronic kidney disease) stage 3, GFR 30-59 ml/min (Acute) History of kidney injury (Acute) GLENYS 2' furosemide, 04/17/23, but needed for HF/Edema.. Seeing Nephrology (quarterly) Decreased dorsalis pedis pulse (Acute) per Pod, 01/13/23 (2/4) Absence of posterior tibial pulse (Acute) per Pod, 01/13/23 Coronary artery disease (Chronic) 3-vessel (LAD, LCX, RCA) Atrial fibrillation (Chronic) Apixaban 06/22/2019 Acute exacerbation of congestive heart failure (Acute) ED --> Hospitalized for diuresis, but no mosqueda & pt unable to sleep (left AMA) Cardiomegaly (Acute) CXR; ECHO 05/2019 [facility] [place]--LVEF 53%, +LVH (mild), no significant valvular disease; stable compared with 2017 study Anemia (Chronic) Hx of iron deficiency anemia (Acute) improved with iron infusion, but did not feel better (possible iron infusions exacerb HF? ~ Mar--Apr 2023)(doubtful based on no IVF, but possible) Fatigue (Acute) Worsened per pt, affecting ADL .. not just de-conditioning? Hyperlipidemia (Chronic 08/17/12) Osteoarthritis of right knee (Acute) DEPO MEDROL 08/14/22 Arthritis of both knees (Chronic) MERRITT (obstructive sleep apnea) (Chronic) Bi-PAP 07/23/19 Diabetes mellitus with neuropathy (Chronic) Reduced monofilament 06/24/2019 Goal A1C 7.5% or less Uncontrolled diabetes mellitus (Acute) Ortho Surgery OK < 8 (Dr. Ceja).. 10/2023 .. Goal </=7.5% Current use of insulin (Chronic) Acquired hypothyroidism (Chronic 10/28/16) High TSH, but WNL T4 (2021) .. re-checking Cervical disc disorder with myelopathy (Acute) right arm Overactive bladder (Acute) Myrbetriq RE-started, 03/2023.. rptd improved @ 04/10/23 ov, ik .. Oxybutynin, discontinued 06/24/19 in favor of optimizing DMT2 management Unsteady gait (Acute) Dizziness incompletely evaluated 2' pt leaving [facility] AMA.. ACS ruled out 01/08- 12/23.. Metoprolol decreased from 25mg BID per [facility], but maybe NOT implemented? ..and missed in FU! 05/30/23, ik Ataxia (Acute) Asymmetrical sensorineural hearing loss (Acute) Cognitive impairment (Acute) Forgetting, but using notes/print-outs .. ex(?)- helps .. Nail dystrophy (Acute) Onychomycosis (Acute) Tinea pedis (Acute) Blisters of multiple sites (Acute ~01/13/23) 01/13/[address] [facility] note- Dr. Barker: Seropurulent Blisters, B/L legs.HE Metatarsalgia of left foot (Acute) Pain of right great toe (Acute) Medical History PAD (peripheral artery disease) Left, per [facility] (12/2022) Stopped smoking with greater than 20 pack year history Lung CT Screening, 07/16/20 Epiretinal membrane (~01/2023) right eye Slow heart rate Noted for some time (1/2 dose trialed in 2021 before change in PCP)(chart reviewed, 05/30/23: dizziness incompletely evaluated 2' pt leaving [facility] AMA.. ACS ruled out 01/08-12/23.. Metoprolol decreased from 25mg BID per [facility], but maybe NOT implemented? ..and missed in FU! 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 Chronic and recurrent low back pain L4-[address] scan in 1993, recurrent since then intermittently. Hypomagnesemia (06/22/14) Only 1.0 in the ER today. Pipe smoker Surgical History History of colonoscopy (~02/2023) with Mac S/P cardiac catheterization (05/31/19) 2019 History of cataract removal with insertion of prosthetic lens (11/23/14) History of umbilical hernia repair Status post appendectomy Status post coronary artery stent placement (09/26/16) One vessel for unstable angina Status post coronary artery bypass with autogenous graft, 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) 2016 Repair of umbilical hernia Fracture, Open Treatment ORIF-LEFT SYNDESMOSIS WITH TWO SCREWS Colonoscopy - IV Sedation Extraction of cataract 11/23/14; DR. GOINS; RIGHT EYE 12/07/14; DR. GOINS; LEFT EYE Appendectomy Family History Father Diabetes Dementia Neoplasm PANCREATIC Social History Smoking/Tobacco Use Status: Former Tobacco Use Quit Date: 01/02/17 Pack-years: 40 Tobacco: How many years used: 40 Quit status: has quit before Smoking risk assessment performed?: Yes Alcohol Intake: current Alcohol Intake frequency: a few times a month Alcohol type: beer and hard liquor Counseling given: Yes Counseling provided: reduce to 2 or less/day Details: 2-3 oz at a time Drug use: Never Substance use type: does not use Adopted: No Caregiver/Support person: No Foster care: No Household members: none and other Details: Cats Housing: house Number of Children: 3 number of grandchildren: 4 Communication Needs: None Do you need help understanding health information?: Rarely Pets and animals: Yes Pets and animals: cat(s) Do you think of yourself as: straight/heterosexual Current gender identity: male What is your relationship status?: How often do you talk on the phone with friends or family?: three or more times per week How often do you get together with friends or relatives?: twice per week Panel score (0-1 are the most socially isolated patients): 1 What type of physical activity do you participate in: other Details: Tredmill Duration: 45-60 minutes/day Frequency: 5-6 times per week Special isi needs: No Seatbelt use: always Helmet use: Yes Helmet use: always Drive intox 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 cpr ambulance driver: No Working smoke detector in home: No Fire extinguisher in home: No Carbon monox detector in home: No Do you feel safe at home: Yes Do you feel safe in your relationship?: Yes
--- NOTE | 2024-04-28 14:51 | NUR.NOTE ---
Nursing Note: Aide roomed patient. Heather told morgan I like the way you look can you take me home with you Morgan asked patient to not speak like that and reported to this RN 2 caregivers to be in the room at a time during heather's visit
--- NOTE | 2024-04-28 15:22 | DI.CT_ITS ---
Exam(s) CT HEAD CERVICAL SPINE WO EXAM: CT HEAD CERVICAL SPINE WO CLINICAL HISTORY: pain, hit head, on Eliquis, nausea, stiff neck. TECHNIQUE: Imaging Protocol: Axial computed tomography images with coronal and sagittal reformatted images were created and reviewed COMPARISON: CT CT HEAD W from 01/13/2022 FINDINGS: Head CT Ventricles and Extra axial spaces: Lateral ventricles and 3rd ventricle are enlarged but stable. Hemorrhage: None. Cerebral parenchyma: No evidence of mass or acute infarct. No significant white matter changes. Midline shift: None. Brainstem/Cerebellum: Normal. Calvarium: Normal. Visualized Paranasal sinuses/Mastoids: Clear. Soft tissues: Small superior frontal scalp hematoma. Cervical Spine CT BONES: Vertebral body heights are maintained. Alignment is normal. There is no evidence of acute frac ture. Degenerative disc changes and facet degenerative changes are seen . SOFT TISSUES: No paraspinal hematoma. The airway appears intact. No pneumothorax is seen at the lung apices. IMPRESSION: Head CT: No acute intracranial abnormality.Prominent lateral ventricles which appear stable. Small s uperior frontal scalp hematoma. C-spine CT: Degenerative changes, no acute abnormality. RADIATION DOSE DELIVERED: 1,495.62mGy.cm Total DLP DATA REPOSITORY: All CT scans at this facility are submitted to the National Radiology Data Registry (NRDR) Dose Index Registry (DIR) with the [employer] (A[employer]). RADIATION OPTIMIZATION: All CT scans at this facility use at least one of these dose optimization te chniques: automated exposure control; mA and/or kV adjustment per patient size (includes targeted exa ms where dose is matched to clinical indication); or iterative reconstruction.
[2024-04-28 15:44] VITALS: BP 151/110; PULSE 60; RESP 16; O2SAT 99
== END 2024-04-28 15:44 | disposition home or self-care (01) ==
PROVIDERS: Emergency Provider Emergency Medicine; PCP Student in an Organized Health Care Education/Training Program
DX: S09.8XXA Other specified injuries of head, initial encounter (principal); S00.12XA Contusion of left eyelid and periocular area, initial encounter; S00.11XA Contusion of right eyelid and periocular area, initial encounter; I25.10 Atherosclerotic heart disease of native coronary artery without angina pectoris; I48.91 Unspecified atrial fibrillation; E11.22 Type 2 diabetes mellitus with diabetic chronic kidney disease; I13.0 Hypertensive heart and chronic kidney disease with heart failure and stage 1 through stage 4 chronic kidney disease, or unspecified chronic kidney disease; N18.30 Chronic kidney disease, stage 3 unspecified; I50.9 Heart failure, unspecified; E11.40 Type 2 diabetes mellitus with diabetic neuropathy, unspecified; Z79.01 Long term (current) use of anticoagulants; Z79.85 Long-term (current) use of injectable non-insulin antidiabetic drugs; Z79.82 Long term (current) use of aspirin; Z95.1 Presence of aortocoronary bypass graft; Z95.5 Presence of coronary angioplasty implant and graft; E78.5 Hyperlipidemia, unspecified; Z87.891 Personal history of nicotine dependence; W01.198A Fall on same level from slipping, tripping and stumbling with subsequent striking against other object, initial encounter; Y93.89 Activity, other specified; Y92.018 Other place in single-family (private) house as the place of occurrence of the external cause
CPT/HCPCS: 51798; 99213; 99284; 70450; 72125

== ENCOUNTER 2024-07-25 16:09 | Outpatient (REF) | payer MEDICARE, OTHER, SELFPAY ==
[2024-07-25 22:31] LABS: TSH 3.63 uIU/mL (0.36-3.74)
[2024-07-26 17:47] LABS: T4, Free 1.5 ng/dL (0.8-2.2)
== END 2024-07-25 16:10 | disposition home or self-care (01) ==
LOC: NCHCN 16:09
PROVIDERS: Visit Provider Student in an Organized Health Care Education/Training Program
DX: E03.9 Hypothyroidism, unspecified (principal)
CPT/HCPCS: 84439; 84443

== ENCOUNTER 2024-08-08 15:27 | Outpatient (CLI) | payer MEDICARE, OTHER, SELFPAY ==
--- NOTE | 2024-08-08 09:45 | DI.RAD_ITS ---
Exam(s) XR KNEE LT 2V AP,LAT XR KNEE RT 2V AP,LAT XR STANDING ALIGNMENT EXAM: XR STANDING ALIGNMENT CLINICAL HISTORY: eval alignment for TKA. TECHNIQUE: 2D digital imaging was performed. Standing AP views were performed from the pelvis throu gh the ankles. COMPARISON: CR,XR XR KNEE RT 3V AP,LAT,JAQUELINE from 10/03/2021 CR XR KNEE LT 2V AP,LAT from 08/08/2024 CR XR KNEE RT 2V AP,LAT from 08/08/2024 FINDINGS: BONES: No acute fracture is present. No bony destructive lesion is seen. Chronic appearing bony defo rmity of the upper right tibia. Leg length discrepancy: The right femoral head projects a few millimeters superior to the left. JOINTS: Knees: The left knee shows moderate narrowing of the medial femoral tibial joint space and mi ld periarticular spurring throughout. The right knee shows mild to moderate narrowing of the medial femoral tibial joint space and mild periarticular spurring. There is more severe narrowing of the pa tellofemoral joint. The ankle joints are show mild degenerative changes, greater on the left. The hip joints show mild degenerative changes. SOFT TISSUE: None vascular clips in the medial right knee. IMPRESSION: Moderate degenerative changes of both medial femoral tibial joint. Degenerative changes are also se en in the patellofemoral joints, right greater than left.. Mild overall leg length discrepancy. DATA REPOSITORY: RADIATION DOSE DELIVERED:
== END 2024-08-08 15:28 | disposition home or self-care (01) ==
LOC: DIORS 15:28
PROVIDERS: PCP Student in an Organized Health Care Education/Training Program; Referring Provider Student in an Organized Health Care Education/Training Program; Visit Provider Student in an Organized Health Care Education/Training Program
DX: M17.11 Unilateral primary osteoarthritis, right knee (principal); M17.12 Unilateral primary osteoarthritis, left knee; E11.9 Type 2 diabetes mellitus without complications; E66.9 Obesity, unspecified
CPT/HCPCS: 20610; 99215; J1010; 73560; 77073

== ENCOUNTER 2024-08-15 13:05 | Emergency (ER) | payer MEDICARE, OTHER, SELFPAY ==
[2024-08-15 13:17] VITALS: BP 140/72; PULSE 65; RESP 20; TEMP 36.8; O2SAT 96
--- NOTE | 2024-08-15 14:45 | DI.RAD_ITS ---
Exam(s) XR ANKLE RT COMPLETE XR FOOT RT COMPLETE EXAM: XR ANKLE RT COMPLETE CLINICAL HISTORY: fall, injury. TECHNIQUE: 2D digital imaging was performed. Three views of the ankle and foot. COMPARISON: CR XR ANKLE RT COMPLETE from 07/22/2022 CR XR FOOT RT COMPLETE from 08/15/2024 FINDINGS: BONES: No acute fracture is present. No bony destructive lesion is seen. JOINTS: The ankle mortise is normally aligned. Tibiotalar joint space is maintained. SOFT TISSUE: Swelling. Vascular calcifications. IMPRESSION: No acute abnormality. DATA REPOSITORY: RADIATION DOSE DELIVERED:
--- NOTE | 2024-08-15 16:10 | ED.GENADUL_ITS ---
Discharge Plan Disposition Patient Disposition: Home Condition: Stable Discharge Details Clinical Impression: Sprain of right foot Primary Care Provider: Richard Jeffers ED Provider: Lucas Greenberg Home Meds and New Rx's Prescriptions: Continued nitroglycerin 0.4 mg tablet, sublingual 0.4 mg sublingual Q5-15M PRN Rx Instructions: do not exceed 3 doses per episode insulin aspart U-100 [Novolog FlexPen U-100 Insulin] 100 unit/mL (3 mL) insulin pen See Rx Instructions .ROUTE .COMPLEX Qty: 90 3RF Dose Instruction: INJECT 10 TO 30 UNITS BEFORE MEALS PER MEALTIME CORRECTION SCHEDULE Rx Instructions: INJECT 10 TO 30 UNITS BEFORE MEALS PER MEALTIME CORRECTION SCHEDULE (DME) FreeStyle Bahman 2 [place] Misc See Rx Instructions .ROUTE .MEDSUPPLY Qty: 1 0RF Rx Instructions: As directed (DME) Knee Brace - STABILIZING See Rx Instructions .Route .MEDSUPPLY Qty: 1 1RF Rx Instructions: One RT KNEE STABILIZING BRACE; mirabegron [Myrbetriq] 50 mg tablet extended release 24 hr 50 mg PO DAILY Qty: 90 3RF aspirin 81 mg tablet,delayed release (DR/EC) 81 mg PO DAILY Patient Comments: 06/02/19-replaces 325mg. daily dose. [facility] [place]. JOBY Mchugh (DME) lancets [FreeStyle Lancets] 28 gauge misc See Rx Instructions .ROUTE .MEDSUPPLY Qty: 400 3RF Rx Instructions: to test BS 4X daily for DM/E11.9 and to keep A1c at or under 7.0% (DME) pen needle, diabetic [BD Ultra-Fine Amber Pen Needle] 32 gauge x 5/32 needle 1 ea Miscellaneous QID Qty: 400 3RF Rx Instructions: E11.65 to administer insulin 4x/day (DME) Blood Glucose Test Strip See Rx Instructions .MEDSUPPLY Qty: 400 3RF Rx Instructions: As directed to check blood glucose four times daily. On insulin. Dispense covered brand. (DME) FreeStyle Bahman 2 Sensor Kit See Rx Instructions .ROUTE .MEDSUPPLY Qty: 2 11RF Rx Instructions: As directed Eliquis 5 mg tablet 5 mg PO BID Qty: 180 3RF Rx Instructions: PLEASE EXPLAIN WHAT HAPPENED TO 05/29/23 PRESCRIPTION? metoprolol tartrate 25 mg tablet 25 mg PO BID Qty: 180 3RF Rx Instructions: Heart insulin glargine [Lantus Solostar U-100 Insulin] 100 unit/mL (3 mL) insulin pen 55 unit Sub-Q QPM Qty: 60 3RF Rx Instructions: Or as directed for dx: E11.65 Jardiance 25 mg tablet See Rx Instructions .ROUTE .COMPLEX Qty: 90 3RF Dose Instruction: TAKE 1 TABLET EVERY MORNING Rx Instructions: TAKE 1 TABLET EVERY MORNING rosuvastatin 40 mg tablet See Rx Instructions .ROUTE .COMPLEX Qty: 90 3RF Dose Instruction: TAKE 1 TABLET DAILY Rx Instructions: TAKE 1 TABLET DAILY cholecalciferol (vitamin D3) 1,250 mcg (50,000 unit) capsule 1,250 mcg PO QWEEK Qty: 10 0RF Rx Instructions: High dose Vit D, WEEKLY, per Nephro (unless already sent in?) ergocalciferol (vitamin D2) 1,250 mcg (50,000 unit) capsule 1,250 mcg PO QWEEK Rx Instructions: High dose Vit D, WEEKLY, per Nephro (unless already sent in?) fenofibrate nanocrystallized [Tricor] 145 mg tablet 145 mg PO DAILY Qty: 90 3RF semaglutide 1 mg/dose (4 mg/3 mL) pen injector 1 mg subcut QWEEK Qty: 3 5RF furosemide 40 mg tablet 40 mg PO DAILY PRN (Reason: LEG SWELLING) Qty: 90 3RF Rx Instructions: Re-start, 04/14 x 3-5 days levothyroxine 50 mcg tablet See Rx Instructions .ROUTE .COMPLEX Qty: 90 3RF Dose Instruction: TAKE 1 TABLET DAILY FOR THYROID Rx Instructions: TAKE 1 TABLET DAILY FOR THYROID nitroglycerin 0.4 mg tablet, sublingual 0.4 mg SL Q5M PRN (Reason: chest pain) Qty: 90 3RF Rx Instructions: Take 1 at onset of chest pain, may repeat x2 q5 min if pain continues. losartan 25 mg tablet See Rx Instructions .ROUTE .COMPLEX Qty: 90 0RF Dose Instruction: TAKE 1 TABLET AT BEDTIME FOR DIABETES, AND TO PROTECT KIDNEYS Rx Instructions: TAKE 1 TABLET AT BEDTIME FOR DIABETES, AND TO PROTECT KIDNEYS Discharge Instructions Instructions: Foot Sprain ED Additional Instructions: You were seen in the emergency department for the sprain of your right foot, there is no fracture on x-ray. Please take 650 mg of Tylenol 4 times per day. Please immobilize as needed with any at home Bruno wrap's or wear sturdy footwear. Please rest, ice, compress and elevate the foot, if your pain fails to improve please follow-up with your primary care provider for a referral to orthopedics, please return for any signs of infection or neurovascular compromise to the right foot. Referrals: Richard Jeffers [Primary Care Provider] - Discharge Data Discharge Date/Time-TO BE ENTERED AT DEPARTURE: 08/15/24 16:30 HPI General Date/Time Provider Initiated Documentation: 08/15/24 13:40 . HPI Narrative: 73 year-old male presents to ED today by POV/ambulating with a chief complaint of R foot/ankle injury with onset 2 days ago after tripping on stairs. Quality described as painful with movement, no radiation to swelling/deformity, skin changes/bruising, purulent drainage or lesion. Severity is described as moderate. Palliating factors include tried icing it for a few days. Provoking factors include weight-bearing, movement. Patient is anticoagulated. Related Data Home Medications ?Medication ?Instructions ?Recorded ?Confirmed aspirin 81 mg tablet,delayed 81 mg PO DAILY 06/02/19 08/15/24 release lancets 28 gauge (FreeStyle #400 ea 02/11/21 08/15/24 Lancets) pen needle, diabetic 32 gauge x #400 ea 03/25/21 08/15/24/32 (BD Ultra-Fine Amber Pen Needle) flash glucose scanning reader #1 ea 11/17/21 08/15/24 (FreeStyle Bahman 2 [place]) blood sugar diagnostic (Blood #400 ea 12/13/21 08/15/24 Glucose Test strips) flash glucose sensor (FreeStyle #2 ea 11/27/22 08/15/24 Bahman 2 Sensor kit) nitroglycerin 0.4 mg sublingual 0.4 mg sublingual Q5-15M PRN 01/26/23 08/15/24 tablet insulin aspart U-100 100 unit/mL See Rx Instructions .Route 05/29/23 08/15/24 (3 mL) subcutaneous pen (Novolog .COMPLEX #90 mL FlexPen U-100 Insulin aspart) apixaban 5 mg tablet (Eliquis) 5 mg PO BID #180 tabs 07/22/23 08/15/24 metoprolol tartrate 25 mg tablet 25 mg PO BID #180 tab-caps 07/28/23 08/15/24 insulin glargine 100 unit/mL (3 55 unit (0.55 mL) subcut QPM #60 mL 07/31/23 08/15/24 mL) subcutaneous pen (Lantus Solostar U-100 Insulin) empagliflozin 25 mg tablet See Rx Instructions .Route 08/04/23 08/15/24 (Jardiance) .COMPLEX #90 tabs rosuvastatin 40 mg tablet See Rx Instructions .Route 09/16/23 08/15/24 .COMPLEX #90 tabs cholecalciferol (vitamin D3) 1,250 1,250 mcg PO QWEEK #10 caps 09/28/23 08/15/24 mcg (50,000 unit) capsule ergocalciferol (vitamin D2) 1,250 1,250 mcg PO QWEEK 09/30/23 08/15/24 mcg (50,000 unit) capsule Knee Brace - STABILIZING #1 ea 10/25/23 08/15/24 fenofibrate nanocrystallized 145 145 mg PO DAILY #90 tab-caps 02/24/24 08/15/24 mg tablet (Tricor) semaglutide 1 mg/dose (4 mg/3 mL) 1 mg (0.75 mL) subcut QWEEK #3 mL 04/14/24 08/15/24 subcutaneous pen injector mirabegron 50 mg tablet,extended 50 mg PO DAILY #90 tabs 04/28/24 08/15/24 release 24 hr (Myrbetriq) furosemide 40 mg tablet 40 mg PO DAILY PRN LEG SWELLING 05/03/24 08/15/24 #90 tabs levothyroxine 50 mcg tablet See Rx Instructions .Route 05/03/24 08/15/24 .COMPLEX #90 tabs nitroglycerin 0.4 mg sublingual 0.4 mg sublingual Q5M PRN chest 05/03/24 08/15/24 tablet pain #90 tabs losartan 25 mg tablet See Rx Instructions .Route 07/06/24 08/15/24 .COMPLEX #90 tabs Previous Rx's ?Medication ?Instructions ?Recorded lancets 28 gauge (FreeStyle #400 ea 02/11/21 Lancets) pen needle, diabetic 32 gauge x #400 ea 03/25/21/32 (BD Ultra-Fine Amber Pen Needle) flash glucose scanning reader #1 ea 11/17/21 (FreeStyle Bahman 2 [place]) blood sugar diagnostic (Blood #400 ea 12/13/21 Glucose Test strips) flash glucose sensor (FreeStyle #2 ea 11/27/22 Bahman 2 Sensor kit) insulin aspart U-100 100 unit/mL See Rx Instructions .Route 05/29/23 (3 mL) subcutaneous pen (Novolog .COMPLEX #90 mL FlexPen U-100 Insulin aspart) apixaban 5 mg tablet (Eliquis) 5 mg PO BID #180 tabs 07/22/23 metoprolol tartrate 25 mg tablet 25 mg PO BID #180 tab-caps 07/28/23 insulin glargine 100 unit/mL (3 55 unit (0.55 mL) subcut QPM #60 mL 07/31/23 mL) subcutaneous pen (Lantus Solostar U-100 Insulin) empagliflozin 25 mg tablet See Rx Instructions .Route 08/04/23 (Jardiance) .COMPLEX #90 tabs rosuvastatin 40 mg tablet See Rx Instructions .Route 09/16/23 .COMPLEX #90 tabs cholecalciferol (vitamin D3) 1,250 1,250 mcg PO QWEEK #10 caps 09/28/23 mcg (50,000 unit) capsule Knee Brace - STABILIZING #1 ea 10/25/23 fenofibrate nanocrystallized 145 145 mg PO DAILY #90 tab-caps 02/24/24 mg tablet (Tricor) semaglutide 1 mg/dose (4 mg/3 mL) 1 mg (0.75 mL) subcut QWEEK #3 mL 04/14/24 subcutaneous pen injector mirabegron 50 mg tablet,extended 50 mg PO DAILY #90 tabs 04/28/24 release 24 hr (Myrbetriq) furosemide 40 mg tablet 40 mg PO DAILY PRN LEG SWELLING 05/03/24 #90 tabs levothyroxine 50 mcg tablet See Rx Instructions .Route 05/03/24 .COMPLEX #90 tabs nitroglycerin 0.4 mg sublingual 0.4 mg sublingual Q5M PRN chest 05/03/24 tablet pain #90 tabs losartan 25 mg tablet See Rx Instructions .Route 07/06/24 .COMPLEX #90 tabs Allergies Allergy/AdvReac Type Severity Reaction Status Date / Time No Known Allergies Allergy Verified 08/15/24 13:20 General Stated Complaint: Orthopedic CHRISTIANE: 4 Review of Systems All systems reviewed & are unremarkable except as noted in HPI and below Exam Narrative Exam Narrative: GENERAL APPEARANCE: Well-nourished, non-toxic, awake and alert, atraumatic, no acute distress. SKIN: Warm, pink, dry, intact, without rashes/lesions/ulcerations. HEAD: Normocephalic, atraumatic, normal hair distribution for gender/age. EYES: Normal conjunctiva, no exudates on lids/lashes. ENT: Nares patent, no circumoral cyanosis, no facial swelling NECK: Supple, trachea midline, painless cervical ROM. LUNGS/CHEST: Non-labored respirations, normal A/P diameter, symmetrical expansion, no chest wall deformity HEART (CV/PV): Regular rate, R dorsalis pedis pulse 2+no peripheral edema, no JVD. ABDOMEN: Soft, non-distended, no guarding. MSK: Normal ROM, no swelling/deformity to bilateral UEs or LEs, moving all extremities without weakness, no cyanosis, spine midline without tenderness, normal curvature, tenderness diffusely of the medial foot from great toe to medial ankle without swelling/deformity, no bruising, no abrasions or lesions, no crepitus NEURO: Mental Status AAOx4 - alert to person, place, time, events No facial droop, no forehead involvement. Motor: No focal weakness - strength 5/5 in bilateral UEs and LEs, proximal and distal, symmetric. Sensory: sensation intact to light touch globally. Gait mildly antalgic. PSYCH: euthymic, cooperative, pleasant, appropriate speech Course Vital Signs Vital signs: Vital Signs Temperature 36.8 C 08/15/24 13:17 Pulse 65 08/15/24 13:17 Respiratory Rate 08/15/24 13:17 Blood Pressure 140/72 08/15/24 13:17 Pulse Oximetry 96 08/15/24 13:17 Temperature 36.8 C 08/15/24 13:17 Pulse 65 08/15/24 13:17 Respiratory Rate 20 08/15/24 13:17 Blood Pressure 140/72 08/15/24 13:17 Blood Pressure Position Sitting 04/14/25 13:17 Pulse Oximetry 96 08/15/24 13:17 Oxygen Delivery Method Room Air 08/15/24 13:17 Oxygen Flow Rate 0 08/15/24 13:17 Medical Decision Making This dictation utilizes [id number] dictation software and may contain unedited grammatical errors. 73 year-old male presents to ED today by POV/ambulating with a chief complaint of R foot/ankle injury with onset last week after tripping on stairs. Quality described as painful with movement, no radiation to swelling/deformity, skin changes/bruising, purulent drainage or lesion. Severity is described as moderate. Palliating factors include tried icing it for a few days. Provoking factors include weight-bearing, movement. Patients' medical history: Peripheral artery disease, medial meniscus tear of right knee, peripheral neuropathy, hammertoes, CHF, chronic pitting edema, coronary artery disease, unsteady gait/ataxia. Family and social history: noncontributory. Pertinent exam findings / vital signs include tenderness to palpation diffusely up the medial foot, no ulceration or lesion, no abrasion, no ankle swelling or deformity, R dorsalis pedis pulse 2+, no fibular head tenderness. Differential / pathologies of concern include ankle sprain. Diagnostic studies of: -XR R Ankle - no acute fracture. Interventions of: -bruno wrap offered, does not require crutches. ED Course/Assessment/Plan: 73-year-old male presents with likely right ankle sprain from tripping on his stairs last week, has been icing it without relief, x-rays negative for fracture, he has no signs of deformity or swelling and is neurovascularly intact, counseled on continuing RICE therapy and taking Tylenol for pain as needed, recommend orthopedic evaluation for persistent pain lasting longer than 2 weeks. Findings not consistent with fracture or neurovascular compromise. Disposition of sprain of right foot. Patient verbalized understanding of the plan and return to ED criteria and engaged in shared decision making. Medical Records Medical records reviewed: Yes I reviewed the patient's medical records. Imaging Data Radiologic Study: Attestation: I personally reviewed and interpreted this imaging study as follows: Imaging: X-Ray Radiologist's impression: EXAM: XR ANKLE RT COMPLETE CLINICAL HISTORY: fall, injury. TECHNIQUE: 2D digital imaging was performed. Three views of the ankle and foot. COMPARISON: CR XR ANKLE RT COMPLETE from 07/22/2022 CR XR FOOT RT COMPLETE from 08/15/2024 FINDINGS: BONES: No acute fracture is present. No bony destructive lesion is seen. JOINTS: The ankle mortise is normally aligned. Tibiotalar joint space is maintained. SOFT TISSUE: Swelling. Vascular calcifications. IMPRESSION: No acute abnormality. Radiologic Study #2: Attestation: I personally reviewed and interpreted this imaging study as follows: Imaging: X-Ray Radiologist's impression: EXAM: XR ANKLE RT COMPLETE CLINICAL HISTORY: fall, injury. TECHNIQUE: 2D digital imaging was performed. Three views of the ankle and foot. COMPARISON: CR XR ANKLE RT COMPLETE from 07/22/2022 CR XR FOOT RT COMPLETE from 08/15/2024 FINDINGS: BONES: No acute fracture is present. No bony destructive lesion is seen. JOINTS: The ankle mortise is normally aligned. Tibiotalar joint space is maintained. SOFT TISSUE: Swelling. Vascular calcifications. IMPRESSION: No acute abnormality. Quality:SDOH Health Related Social Needs: No Data to Display PFSH All Active Problems (Updated 08/15/24 @ 16:21 by JOBY Rod) Sprain of right foot (Acute) Arthritis of right knee (Acute) 40MG DEPO MEDROL 08/08/24 Localized osteoarthritis of left knee (Acute) 40mg DEPO MEDROL 08/08/24 Peripheral sensory neuropathy (Acute) Hammer toes, bilateral (Acute) Osteoarthritis of both knees (Acute) Laxity of knee joint (Acute) Sensation of knee instability (Acute) Unstable right knee (Acute) Cardiomyopathy (Acute) Toenail deformity (Acute) Coordination of complex care (Acute) Chart Review ID several Dx/Tx needing re-assessment or Hx requiring re- evaluation ([facility] dec?)(Bi-Pap ordered 12/2023, rec'd?)(Fe Infusion)(Vit D started? re-checked?)(++) Bradycardia (Acute) Noted for some time (1/2 dose trialed in 2021 before change in PCP)(chart reviewed, 05/30/23: dizziness incompletely evaluated 2' pt leaving [facility] AMA.. ACS ruled out 01/08-12/23.. Metoprolol decreased from 25mg BID per [facility], but maybe NOT implemented? ..and missed in FU! 05/30/23, sung Diuresis (Acute) actively diuresing, good results with q 2-3 days lasix (May 2023). Hx exacerbated CHF in Fall 2022 (AMA 2' intolerance diuretics, unable to get to bathroom; poor sleep 2' noise + uncomfortable bed)((Rx if HOSPTLZATN needed .. ik, 04/2023)) Pitting edema (Chronic) improved with diuretics (mar-apr 2023) .. cont q2 days.. [ ] [place] [facility] [place] Low vitamin D level (Acute) Very low, 7.9! Essential hypertension (Chronic 01/31/13) CHF (congestive heart failure), NYHA class II (Chronic) EF 40% (12/2022), decreased from 2019 .. Clinical Dx ClassII CKD (chronic kidney disease) stage 3, GFR 30-59 ml/min (Acute) History of kidney injury (Acute) GLENYS 2' furosemide, 04/17/23, but needed for HF/Edema.. Seeing Nephrology (quarterly) Decreased dorsalis pedis pulse (Acute) per Pod, 01/13/23 (2/4) Absence of posterior tibial pulse (Acute) per Pod, 01/13/23 Coronary artery disease (Chronic) 3-vessel (LAD, LCX, RCA) Atrial fibrillation (Chronic) Apixaban 06/22/2019 Acute exacerbation of congestive heart failure (Acute) ED --> Hospitalized for diuresis, but no mosqueda & pt unable to sleep (left AMA) Cardiomegaly (Acute) CXR; ECHO 05/2019 [facility] [place]--LVEF 53%, +LVH (mild), no significant valvular disease; stable compared with 2017 study Anemia (Chronic) Hx of iron deficiency anemia (Acute) improved with iron infusion, but did not feel better (possible iron infusions exacerb HF? ~ Mar--Apr 2023)(doubtful based on no IVF, but possible) Fatigue (Acute) Worsened per pt, affecting ADL .. not just de-conditioning? Hyperlipidemia (Chronic 08/17/12) Osteoarthritis of right knee (Acute) DEPO MEDROL 08/14/22 Arthritis of both knees (Chronic) MERRITT (obstructive sleep apnea) (Chronic) Bi-PAP 07/23/19 Diabetes mellitus with neuropathy (Chronic) Reduced monofilament 06/24/2019 Goal A1C 7.5% or less Uncontrolled diabetes mellitus (Acute) Ortho Surgery OK < 8 (Dr. Ceja).. 10/2023 .. Goal </=7.5% Current use of insulin (Chronic) Acquired hypothyroidism (Chronic 10/28/16) High TSH, but WNL T4 (2021) .. re-checking Cervical disc disorder with myelopathy (Acute) right arm Overactive bladder (Acute) Myrbetriq RE-started, 03/2023.. rptd improved @ 04/10/23 ov, ik .. Oxybutynin, discontinued 06/24/19 in favor of optimizing DMT2 management Unsteady gait (Acute) Dizziness incompletely evaluated 2' pt leaving [facility] AMA.. ACS ruled out 01/08- 12/23.. Metoprolol decreased from 25mg BID per [facility], but maybe NOT implemented? ..and missed in FU! 05/30/23, ik Ataxia (Acute) Asymmetrical sensorineural hearing loss (Acute) Cognitive impairment (Acute) Forgetting, but using notes/print-outs .. ex(?)- helps .. Nail dystrophy (Acute) Onychomycosis (Acute) Tinea pedis (Acute) Blisters of multiple sites (Acute ~01/13/23) 01/13/23 [facility] note- Dr. Barker: Seropurulent Blisters, B/L legs.HE Metatarsalgia of left foot (Acute) Pain of right great toe (Acute) Medical History PAD (peripheral artery disease) Left, per OSVALDO (12/2022) Stopped smoking with greater than 20 pack year history Lung CT Screening, 07/16/20 Epiretinal membrane (~01/2023) right eye Slow heart rate Noted for some time (1/2 dose trialed in 2021 before change in PCP)(chart reviewed, 05/30/23: dizziness incompletely evaluated 2' pt leaving [facility] AMA.. ACS ruled out 01/08-12/23.. Metoprolol decreased from 25mg BID per [facility], but maybe NOT implemented? ..and missed in FU! 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 Chronic and recurrent low back pain L4-[address] scan in 1993, recurrent since then intermittently. Hypomagnesemia (06/22/14) Only 1.0 in the ER today. Pipe smoker Surgical History History of colonoscopy (~02/2023) with Mac S/P cardiac catheterization (05/31/19) 2019 History of cataract removal with insertion of prosthetic lens (11/23/14) History of umbilical hernia repair Status post appendectomy Status post coronary artery stent placement (09/26/16) One vessel for unstable angina Status post coronary artery bypass with autogenous graft, 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) 2017 Repair of umbilical hernia Fracture, Open Treatment ORIF-LEFT SYNDESMOSIS WITH TWO SCREWS Colonoscopy - IV Sedation Extraction of cataract 11/23/14; DR. GOINS; RIGHT EYE 12/07/14; DR. GOINS; LEFT EYE Appendectomy Family History Father Diabetes Dementia Neoplasm PANCREATIC Social History Smoking/Tobacco Use Status: Former Tobacco Use Quit Date: 01/02/17 Pack-years: 40 Tobacco: How many years used: 40 Quit status: has quit before Smoking risk assessment performed?: Yes Alcohol Intake: current Alcohol Intake frequency: a few times a month Alcohol type: beer and hard liquor Counseling given: Yes Counseling provided: reduce to 2 or less/day Details: 2-3 oz at a time Drug use: Never Substance use type: does not use Adopted: No Caregiver/Support person: No Foster care: No Household members: none and other Details: Cats Housing: house Number of Children: 3 number of grandchildren: 4 Communication Needs: None Do you need help understanding health information?: Rarely Pets and animals: Yes Pets and animals: cat(s) Do you think of yourself as: straight/heterosexual Current gender identity: male What is your relationship status?: How often do you talk on the phone with friends or family?: three or more times per week How often do you get together with friends or relatives?: twice per week Panel score (0-1 are the most socially isolated patients): 1 What type of physical activity do you participate in: other Details: Tredmill Duration: 45-60 minutes/day Frequency: 5-6 times per week Special isi needs: No Seatbelt use: always Helmet use: Yes Helmet use: always Drive intox 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 log truck driver: No Working smoke detector in home: No Fire extinguisher in home: No Carbon monox detector in home: No Do you feel safe at home: Yes Do you feel safe in your relationship?: Yes
[2024-08-15 16:29] VITALS: BP 140/72; PULSE 65; RESP 20; TEMP 36.8; O2SAT 96
== END 2024-08-15 16:30 | disposition home or self-care (01) ==
PROVIDERS: Emergency Provider Physician Assistant; PCP Student in an Organized Health Care Education/Training Program
DX: S93.601A Unspecified sprain of right foot, initial encounter (principal); E11.22 Type 2 diabetes mellitus with diabetic chronic kidney disease; I12.9 Hypertensive chronic kidney disease with stage 1 through stage 4 chronic kidney disease, or unspecified chronic kidney disease; N18.30 Chronic kidney disease, stage 3 unspecified; I48.91 Unspecified atrial fibrillation; I25.10 Atherosclerotic heart disease of native coronary artery without angina pectoris; E78.5 Hyperlipidemia, unspecified; Z95.1 Presence of aortocoronary bypass graft; Z95.5 Presence of coronary angioplasty implant and graft; Z79.4 Long term (current) use of insulin; Z79.84 Long term (current) use of oral hypoglycemic drugs; Z79.85 Long-term (current) use of injectable non-insulin antidiabetic drugs; Z79.82 Long term (current) use of aspirin; Z79.01 Long term (current) use of anticoagulants; Z87.891 Personal history of nicotine dependence
CPT/HCPCS: 99283; 73610; 73630

== ENCOUNTER 2024-09-23 11:27 | Outpatient (CLI) | payer MEDICARE, OTHER, SELFPAY ==
[2024-09-23 12:21] LABS: Vitamin D 25 Total 21 ng/mL (30-100)
== END 2024-09-23 11:28 | disposition home or self-care (01) ==
LOC: LBO 11:28
PROVIDERS: PCP Student in an Organized Health Care Education/Training Program; Visit Provider Student in an Organized Health Care Education/Training Program
DX: E55.9 Vitamin D deficiency, unspecified (principal)
CPT/HCPCS: 36415; 82306

== ENCOUNTER 2024-09-26 16:32 | Observation (INO) | payer MEDICARE, OTHER, SELFPAY ==
[2024-09-26] VITALS (40 sets, daily range): BP systolic 106–189; BP diastolic 27–93; PULSE 42–72; RESP 11–24; TEMP 36–36.7; O2SAT 92–100
--- NOTE | 2024-09-26 16:30 | RT.EKG_ITS ---
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
--- NOTE | 2024-09-26 16:45 | DI.RAD_ITS ---
Exam(s) XR CHEST 2V PA LATERAL EXAM: XR CHEST 2V PA LATERAL CLINICAL HISTORY: Chest pain TECHNIQUE: 2D digital imaging was performed. Two views. COMPARISON: CR XR CHEST 2V PA LATERAL from 04/03/2023 FINDINGS: HEART: Markedly enlarged, unchanged. Status post CABG. Aorta: Not dilated. PULMONARY VASCULATURE: Normal. MEDIASTINUM: Unremarkable. LUNGS: Clear. PLEURAL SPACE: No pleural effusion or pneumothorax. BONE:Old right rib fractures.. Sternal wires. SOFT TISSUES: Unremarkable. IMPRESSION: Cardiomegaly. No acute abnormality. The preliminary [facility] report was reviewed. DATA REPOSITORY: RADIATION DOSE DELIVERED:
--- NOTE | 2024-09-26 17:00 | DI.CT_ITS ---
Exam(s) CT HEAD WO EXAM: CT HEAD WO CLINICAL HISTORY: headaches, on eliquis. TECHNIQUE: Imaging Protocol: Axial computed tomography images with coronal and sagittal reformatted images were created and reviewed COMPARISON: CT CT HEAD CERVICAL SPINE WO from 04/28/2024 FINDINGS: Ventricles and Extra axial spaces: Stable ventricular dilatation. Hemorrhage: None. Cerebral parenchyma: No evidence of acute infarct or mass. Midline shift: None. Brainstem/Cerebellum: Normal. Calvarium: Normal. Visualized Paranasal sinuses:Clear. Mastoids: Clear. Soft Tissues: Unremarkable. ORBITS: Unremarkable. PITUITARY: Not enlarged. IMPRESSION: No acute intracranial process. The preliminary [facility] report was reviewed. RADIATION DOSE DELIVERED: Total DLP DATA REPOSITORY: All CT scans at this facility are submitted to the National Radiology Data Registry (NRDR) Dose Index Registry (DIR) with the [employer] (ACR). RADIATION OPTIMIZATION: All CT scans at this facility use at least one of these dose optimization te chniques: automated exposure control; mA and/or kV adjustment per patient size (includes targeted exa ms where dose is matched to clinical indication); or iterative reconstruction.
[2024-09-26 17:22] LABS: Abs Immature Grans 0.03 10^3/uL (0.0-0.06); Absolute Basophil Count 0.05 10^3/uL (0.0-0.2); Absolute Eosinophil Count 0.12 10^3/uL (0.0-0.7); Absolute Lymphocyte Count 1.97 10^3/uL (1.2-3.4); Absolute Monocyte Count 0.78 10^3/uL (0.1-0.8); Absolute Neutrophil Count 6.19 10^3/uL (1.2-6.7); Basophils % 0.5 %; Eosinophils % 1.3 %; HCT 39.4 % (40.0-50.0); HGB 12.8 g/dL (13.5-17.5); Immature Grans % 0.3 %; Lymphocytes % 21.6 %; MCHC 32.5 % (32.0-36.0); MCV 99 fL (80-95); MPV 10.8 fL (8.0-11.0); Monocytes % 8.5 %; Neutrophils % 67.8 %; Platelet Count 277 10^3/uL (130-400); RDW-SD 46.8 fL; WBC 9.14 10^3/uL (4.4-10.8)
--- NOTE | 2024-09-26 17:32 | ED.GENADUL_ITS ---
Discharge Plan Disposition Patient Disposition: Admit to [facility] Discharge Details Chief Complaint: Chest Pain Clinical Impression: Atypical chest pain Admit Date/Time: 09/26/24 20:30 Admit Provider: Skyler Coley Attending Provider: Skyler Coley Primary Care Provider: Richard Jeffers ED Provider: Senait Samuel HPI <Senait Rodas - Last Filed: 09/26/24 21:25> General Date/Time Provider Initiated Documentation: 09/26/24 16:35 . HPI Narrative: Minh (given name Olaf) is a 73-year-old male presents to the emergency department for evaluation of intermittent chest pain, headaches, and dyspnea. Chest pain: Intermittent for the past month, minor but concerning, associated with stress, not exertional or occurring at rest. Current episode: tightness in the front of the chest, non-radiating, has lasted for the past 30 minutes. No recent illnesses, fevers, chills, congestion, sore throat, cough, weight loss, appetite changes, abdominal pain, or edema. On baby aspirin and Eliquis. Dyspnea: Occasional, typically when lying down, not present currently. Uses CPAP. History of smoking, long-term abstinent; denies history of lung disease. No pedal edema Headaches: Mild, intermittent, pressure on sides of head, no dizziness, vision changes, confusion, or difficulty walking. He says these come and go without intervention, currently has a mild headache that started when he came to the emergency department no recent head trauma, but hit head 2-3 months ago while loading the wood stove. Has not taken any medication for headaches. Past medical history significant for T2DM (well controlled with Lantus and NovoLog injections. Blood sugars around 120), triple bypass surgery, hypothyroidism, cardiomyopathy, HTN, HLD, CAD, A-fib on anticoagulation, CHF class II, CKD stage III, and history of iron deficiency anemia Related Data Home Medications ?Medication ?Instructions ?Recorded ?Confirmed aspirin 81 mg tablet,delayed 81 mg PO DAILY 06/02/19 09/26/24 release lancets 28 gauge (FreeStyle #400 ea 02/11/21 09/26/24 Lancets) pen needle, diabetic 32 gauge x #400 ea 03/25/21 09/26/24 (BD Ultra-Fine Amber Pen Needle) flash glucose scanning reader #1 ea 11/17/21 09/26/24 (FreeStyle [place] 2 [place]) blood sugar diagnostic (Blood #400 ea 12/13/21 09/26/24 Glucose Test strips) flash glucose sensor (FreeStyle #2 ea 11/27/22 09/26/24 Bahman 2 Sensor kit) nitroglycerin 0.4 mg sublingual 0.4 mg sublingual Q5-15M PRN 01/26/23 09/26/24 tablet insulin aspart U-100 100 unit/mL See Rx Instructions .Route 05/29/23 09/26/24 (3 mL) subcutaneous pen (Novolog .COMPLEX #90 mL FlexPen U-100 Insulin aspart) apixaban 5 mg tablet (Eliquis) 5 mg PO BID #180 tabs 07/22/23 09/26/24 metoprolol tartrate 25 mg tablet 25 mg PO BID #180 tab-caps 07/28/23 09/26/24 insulin glargine 100 unit/mL (3 55 unit (0.55 mL) subcut QPM #60 mL 07/31/23 09/26/24 mL) subcutaneous pen (Lantus Solostar U-100 Insulin) empagliflozin 25 mg tablet See Rx Instructions .Route 08/04/23 09/26/24 (Jardiance) .COMPLEX #90 tabs rosuvastatin 40 mg tablet See Rx Instructions .Route 09/16/23 09/26/24 .COMPLEX #90 tabs cholecalciferol (vitamin D3) 1,250 1,250 mcg PO QWEEK #10 caps 09/28/23 09/26/24 mcg (50,000 unit) capsule ergocalciferol (vitamin D2) 1,250 1,250 mcg PO QWEEK 09/30/23 09/26/24 mcg (50,000 unit) capsule Knee Brace - STABILIZING #1 ea 10/25/23 09/26/24 fenofibrate nanocrystallized 145 145 mg PO DAILY #90 tab-caps 02/24/24 09/26/24 mg tablet (Tricor) semaglutide 1 mg/dose (4 mg/3 mL) 1 mg (0.75 mL) subcut QWEEK #3 mL 04/14/24 09/26/24 subcutaneous pen injector mirabegron 50 mg tablet,extended 50 mg PO DAILY #90 tabs 04/28/24 09/26/24 release 24 hr (Myrbetriq) furosemide 40 mg tablet 40 mg PO DAILY PRN LEG SWELLING 05/03/24 09/26/24 #90 tabs levothyroxine 50 mcg tablet See Rx Instructions .Route 05/03/24 09/26/24 .COMPLEX #90 tabs nitroglycerin 0.4 mg sublingual 0.4 mg sublingual Q5M PRN chest 05/03/24 09/26/24 tablet pain #90 tabs losartan 25 mg tablet See Rx Instructions .Route 07/06/24 09/26/24 .COMPLEX #90 tabs Previous Rx's ?Medication ?Instructions ?Recorded lancets 28 gauge (FreeStyle #400 ea 02/11/21 Lancets) pen needle, diabetic 32 gauge x #400 ea 03/25/21 (BD Ultra-Fine Amber Pen Needle) flash glucose scanning reader #1 ea 11/17/21 (FreeStyle [place] 2 [place]) blood sugar diagnostic (Blood #400 ea 12/13/21 Glucose Test strips) flash glucose sensor (FreeStyle #2 ea 11/27/22 Bahman 2 Sensor kit) insulin aspart U-100 100 unit/mL See Rx Instructions .Route 05/29/23 (3 mL) subcutaneous pen (Novolog .COMPLEX #90 mL FlexPen U-100 Insulin aspart) apixaban 5 mg tablet (Eliquis) 5 mg PO BID #180 tabs 07/22/23 metoprolol tartrate 25 mg tablet 25 mg PO BID #180 tab-caps 07/28/23 insulin glargine 100 unit/mL (3 55 unit (0.55 mL) subcut QPM #60 mL 07/31/23 mL) subcutaneous pen (Lantus Solostar U-100 Insulin) empagliflozin 25 mg tablet See Rx Instructions .Route 08/04/23 (Jardiance) .COMPLEX #90 tabs rosuvastatin 40 mg tablet See Rx Instructions .Route 09/16/23 .COMPLEX #90 tabs cholecalciferol (vitamin D3) 1,250 1,250 mcg PO QWEEK #10 caps 09/28/23 mcg (50,000 unit) capsule Knee Brace - STABILIZING #1 ea 10/25/23 fenofibrate nanocrystallized 145 145 mg PO DAILY #90 tab-caps 02/24/24 mg tablet (Tricor) semaglutide 1 mg/dose (4 mg/3 mL) 1 mg (0.75 mL) subcut QWEEK #3 mL 04/14/24 subcutaneous pen injector mirabegron 50 mg tablet,extended 50 mg PO DAILY #90 tabs 04/28/24 release 24 hr (Myrbetriq) furosemide 40 mg tablet 40 mg PO DAILY PRN LEG SWELLING 05/03/24 #90 tabs levothyroxine 50 mcg tablet See Rx Instructions .Route 05/03/24 .COMPLEX #90 tabs nitroglycerin 0.4 mg sublingual 0.4 mg sublingual Q5M PRN chest 05/03/24 tablet pain #90 tabs losartan 25 mg tablet See Rx Instructions .Route 07/06/24 .COMPLEX #90 tabs Allergies Allergy/AdvReac Type Severity Reaction Status Date / Time No Known Allergies Allergy Verified 09/26/24 16:42 General Stated Complaint: Chest Pain CHRISTIANE: 3 Exam <Senait Recinos [facility] Filed: 09/26/24 21:25> Const General: cooperative, healthy appearing, comfortable, no acute distress and well developed Nutritional Appearance: overweight Orientation: alert and oriented x3 Chest Chest: normal inspection of the chest and normal palpation of entire chest wall Resp Effort & Inspection: normal respiratory effort and able to speak in complete sentences Auscultation: clear to auscultation bilaterally Cardio Rate: regular rate Rhythm: abnormal rhythm Pulses: radial pulses present GI Inspection: normal to inspection and non-distended Palpation: soft, not firm, not rigid and nontender Auscultation: normal bowel sounds Skin General skin exam: no rashes or lesions noted Neuro General: patient alert, patient oriented x3, tone normal and moves all extremities Motor: muscle tone normal throughout Course <Senait Dipika [facility] Filed: 09/26/24 21:25> Vital Signs Vital signs: Vital Signs Temperature 36.7 C 09/26/24 16:36 Pulse 56 L 09/26/24 16:36 Respiratory Rate 18 09/26/24 16:36 Blood Pressure 125/50 L 09/26/24 16:36 Pulse Oximetry 97 09/26/24 16:36 Temperature 36.7 C 09/26/24 16:36 Temperature Source Oral 09/26/24 16:36 Pulse 56 L 09/26/24 16:36 Respiratory Rate 16 09/26/24 17:18 Respiratory Effort Normal, Non-Labored 09/26/24 17:18 Respiratory Depth Normal 09/26/24 17:18 Respiratory Pattern Normal 09/26/24 17:18 Blood Pressure 125/50 L 09/26/24 16:36 Pulse Oximetry 97 09/26/24 16:36 Oxygen Delivery Method Room Air 09/26/24 16:36 Oxygen Flow Rate 0 09/26/24 16:36 Pain Level 5 09/26/24 16:36 Lab/Test Results Lab/Test Results: Laboratory Tests Range/Units 09/26/24 17:16 WBC (4.4-10.8) 10^3/uL 9.14 RBC (4.36-5.78) 10^6/uL 4.00 L Hgb (13.5-17.5) g/dL 12.8 L Hct (40.0-50.0) % 39.4 L MCV (80-95) fL 99 H MCH (27.0-33.0) pg 32.0 MCHC (32.0-36.0) % 32.5 RDW (11.8-14.1) % 13.0 Plt Count (130-400) 10^3/uL 277 MPV (8.0-11.0) fL 10.8 Immature Gran % % 0.3 Neutrophils % % 67.8 Lymphocytes % % 21.6 Monocytes % % 8.5 Eosinophils % % 1.3 Basophils % % 0.5 Nucleated RBC % (0.0-0.3) % 0.0 Absolute Neutrophils (1.2-6.7) 10^3/uL 6.19 Absolute Lymphocytes (1.2-3.4) 10^3/uL 1.97 Absolute Monocytes (0.1-0.8) 10^3/uL 0.78 Absolute Eosinophils (0.0-0.7) 10^3/uL 0.12 Absolute Basophils (0.0-0.2) 10^3/uL 0.05 Medical Decision Making <Senait Rodas - Last Filed: 09/26/24 21:25> Initial Assessment: 73-year-old male presenting with intermittent chest pain, headache, and occasional dyspnea. Differential Diagnosis: - Chest Pain/Dyspnea: ACS, cardiac arrhythmia, CHF, pneumonia, GERD/gastritis/esophagitis, electrolyte imbalance, symptomatic anemia, pancreatitis, hepatitis - Headache: Overall reassuring history with mild intermittant nonbothersome symptoms, however patient is anticoagulated on Eliquis, CT ordered to rule out intracranial hemorrhage. ED Course: - I independently interpreted the following tests: EKG shows atrial fibrillation with rate 58, unchanged right bundle branch block, no changes consistent with acute ischemia, negative Sgarbossa criteria. BNP very elevated at 1979. Mild hypomagnesemia, magnesium 1.6. CBC, CMP, PT/INR, APTT, and lipase all reassuring. Serial troponins flat at 19, followed by 21. - POCUS cardiac evaluation performed with Dr. Ochoa, mild B-lines on right lung. Limited cardiac examination performed. -CXR reassuring, no acute abnormality noted. - Head CT reassuring, no acute abnormalities noted. Final Assessment: Patient presents with intermittent chest pain, headache, and occasional dyspnea. Heart score 4, indicating moderate risk of Mace in high risk patient; further cardiac monitoring/evaluation indicated. Clinical Impression: Atypical chest pain Disposition: Discussed case with Dr. Coley, hospitalist. Patient to be admitted for observation and echo in the morning MDM Components Evaluation: - Number of Differential Diagnoses or Management Options: Chest Pain, Headache, Dyspnea - Amount and Complexity of Data Reviewed: Cardiac and pulmonary evaluations, neurological examination - Risk of Complication and Morbidity or Mortality: Moderate risk due to history of triple bypass and current symptoms Patient consented to the use of KAIT Imaging Data Radiologic Study: Radiologist's impression: PROCEDURE INFORMATION: Exam: CT Head Without Contrast Exam date and time: 09/26/2024 5:28 PM Age: 73 years old Clinical indication: Other: Headaches TECHNIQUE: Imaging protocol: Computed tomography of the head without contrast. Radiation optimization: All CT scans at this facility use at least one of these dose optimization techniques: automated exposure control; mA and/or kV adjustment per patient size (includes targeted exams where dose is matched to clinical indication); or iterative reconstruction. COMPARISON: CT HEAD CERVICAL SPINE WO 04/28/2024 3:13 PM FINDINGS: Brain: Mild volume loss No hemorrhage. Unremarkable white matter. No mass effect. Cerebral ventricles: Grossly stable ventriculomegaly. Paranasal sinuses: Visualized sinuses are unremarkable. No fluid levels. Mastoid air cells: Visualized mastoid air cells are well aerated. Bones: Unremarkable. No acute fracture. Soft tissues: Unremarkable. IMPRESSION: No acute intracranial abnormality. Grossly stable ventriculomegaly. Correlate for normal pressure hydrocephalus as clinically indicated Radiologic Study #2: Radiologist's impression: PROCEDURE INFORMATION: Exam: XR Chest Exam date and time: 09/26/2024 5:40 PM Age: 73 years old Clinical indication: Pain; Chest pressure; Additional info: Chest pain TECHNIQUE: Imaging protocol: Radiologic exam of the chest. Views: 2 views. COMPARISON: CR XR CHEST 2V PA LATERAL 04/03/2023 9:46 AM FINDINGS: Lungs: Unremarkable. No consolidation. Pleural spaces: Unremarkable. No pleural effusion. No pneumothorax. Heart/Mediastinum: Grossly stable. Bones/joints: Unremarkable. IMPRESSION: No acute findings. Quality:SDOH Health Related Social Needs: No Data to Display PFSH <Senait Rodas - Last Filed: 09/26/24 21:25> All Active Problems (Updated 09/26/24 @ 21:25 by Senait Rodas) Atypical chest pain (Acute) Hypomagnesemia (Acute) Atypical chest pain (Acute) Arthritis of right knee (Acute) 40MG DEPO MEDROL 08/08/24 Localized osteoarthritis of left knee (Acute) 40mg DEPO MEDROL 08/08/24 Peripheral sensory neuropathy (Acute) Hammer toes, bilateral (Acute) Osteoarthritis of both knees (Acute) Laxity of knee joint (Acute) Sensation of knee instability (Acute) Unstable right knee (Acute) Cardiomyopathy (Acute) Toenail deformity (Acute) Coordination of complex care (Acute) Chart Review ID several Dx/Tx needing re-assessment or Hx requiring re- evaluation ([facility] dec?)(Bi-Pap ordered 12/2023, rec'd?)(Fe Infusion)(Vit D started? re-checked?)(++) Bradycardia (Acute) Noted for some time (1/2 dose trialed in 2021 before change in PCP)(chart reviewed, 05/30/23: dizziness incompletely evaluated 2' pt leaving [facility] AMA.. ACS ruled out 01/08-12/23.. Metoprolol decreased from 25mg BID per [facility], but maybe NOT implemented? ..and missed in FU! 05/30/23, ik Diuresis (Acute) actively diuresing, good results with q 2-3 days lasix (May 2023). Hx exacer bated CHF in Fall 2022 (AMA 2' intolerance diuretics, unable to get to bathroom; poor sleep 2' noise + uncomfortable bed)((Rx if HOSPTLZATN needed .. ik, 04/2023)) Pitting edema (Chronic) improved with diuretics (mar-apr 2023) .. cont q2 days.. [ ] [facility] [place] Low vitamin D level (Acute) Very low, 7.9! Essential hypertension (Chronic 01/31/13) CHF (congestive heart failure), NYHA class II (Chronic) EF 40% (12/2022), decreased from 2019 .. Clinical Dx ClassII CKD (chronic kidney disease) stage 3, GFR 30-59 ml/min (Chronic) History of kidney injury (Acute) GLENYS 2' furosemide, 04/17/23, but needed for HF/Edema.. Seeing Nephrology (quarterly) Decreased dorsalis pedis pulse (Acute) per Pod, 01/13/23 (2/4) Absence of posterior tibial pulse (Acute) per Pod, 01/13/23 Coronary artery disease (Chronic) 3-vessel (LAD, LCX, RCA) Atrial fibrillation (Chronic) Apixaban 06/22/2019 Acute exacerbation of congestive heart failure (Acute) ED --> Hospitalized for diuresis, but no mosqueda & pt unable to sleep (left AMA) Cardiomegaly (Acute) CXR; ECHO 05/2019 [facility] [place]LVEF 53%, +LVH (mild), no significant valvular disease; stable compared with 2017 study Anemia (Chronic) Hx of iron deficiency anemia (Acute) improved with iron infusion, but did not feel better (possible iron infusions exacerb HF? ~ Mar--Apr 2023)(doubtful based on no IVF, but possible) Fatigue (Acute) Worsened per pt, affecting ADL .. not just de-conditioning? Hyperlipidemia (Chronic 08/17/12) Osteoarthritis of right knee (Acute) DEPO MEDROL 08/14/22 Arthritis of both knees (Chronic) MERRITT (obstructive sleep apnea) (Chronic) Bi-PAP 07/23/19 Diabetes mellitus with neuropathy (Chronic) Reduced monofilament 06/24/2019 Goal A1C 7.5% or less Uncontrolled diabetes mellitus (Acute) Ortho Surgery OK < 8 (Dr. Ceja).. 10/2023 .. Goal </=7.5% Current use of insulin (Chronic) Acquired hypothyroidism (Chronic 10/28/16) High TSH, but WNL T4 (2021) .. re-checking Cervical disc disorder with myelopathy (Acute) right arm Overactive bladder (Chronic) Myrbetriq RE-started, 03/2023.. rptd improved @ 04/10/23 ov, ik .. Oxybutynin, discontinued 06/24/19 in favor of optimizing DMT2 management Unsteady gait (Acute) Dizziness incompletely evaluated 2' pt leaving [facility] AMA.. ACS ruled out 01/08- 12/23.. Metoprolol decreased from 25mg BID per [facility], but maybe NOT implemented? ..and missed in FU! 05/30/23, ik Ataxia (Acute) Asymmetrical sensorineural hearing loss (Acute) Cognitive impairment (Acute) Forgetting, but using notes/print-outs .. ex(?)- helps .. Nail dystrophy (Acute) Onychomycosis (Acute) Tinea pedis (Acute) Blisters of multiple sites (Acute ~01/13/23) 01/13/23 [facility] note- Dr. Barker: Seropurulent Blisters, B/L legs.HE Metatarsalgia of left foot (Acute) Pain of right great toe (Acute) Medical History PAD (peripheral artery disease) Left, per OSVALDO (12/2022) Stopped smoking with greater than 20 pack year history Lung CT Screening, 07/16/20 Epiretinal membrane (~01/2023) right eye Slow heart rate Noted for some time (1/2 dose trialed in 2021 before change in PCP)(chart reviewed, 05/30/23: dizziness incompletely evaluated 2' pt leaving [facility] AMA.. ACS ruled out 01/08-12/23.. Metoprolol decreased from 25mg BID per [facility], but maybe NOT implemented? ..and missed in FU! 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 Chronic and recurrent low back pain L4-[address] scan in 1993, recurrent since then intermittently. Hypomagnesemia (06/22/14) Only 1.0 in the ER today. Pipe smoker Surgical History History of colonoscopy (~02/2023) with Mac S/P cardiac catheterization (05/31/19) 2019 History of cataract removal with insertion of prosthetic lens (11/23/14) History of umbilical hernia repair Status post appendectomy Status post coronary artery stent placement (09/26/16) One vessel for unstable angina Status post coronary artery bypass with autogenous graft, 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) 2017 Repair of umbilical hernia Fracture, Open Treatment ORIF-LEFT SYNDESMOSIS WITH TWO SCREWS Colonoscopy - IV Sedation Extraction of cataract 11/23/14; DR. GOINS; RIGHT EYE 12/07/14; DR. GOINS; LEFT EYE Appendectomy Family History Father Diabetes Dementia Neoplasm PANCREATIC Social History Smoking/Tobacco Use Status: Former Tobacco Use Quit Date: 01/02/17 Pack-years: 40 Tobacco: How many years used: 40 Quit status: has quit before Smoking risk assessment performed?: Yes Alcohol Intake: current Alcohol Intake frequency: a few times a month Alcohol type: beer and hard liquor Counseling given: Yes Counseling provided: reduce to 2 or less/day Details: 2-3 oz at a time Drug use: Never Substance use type: does not use Adopted: No Caregiver/Support person: No Foster care: No Household members: none and other Details: Cats Housing: house Number of Children: 3 number of grandchildren: 4 Communication Needs: None Do you need help understanding health information?: Rarely Pets and animals: Yes Pets and animals: cat(s) Do you think of yourself as: straight/heterosexual Current gender identity: male What is your relationship status?: How often do you talk on the phone with friends or family?: three or more times per week How often do you get together with friends or relatives?: twice per week Panel score (0-1 are the most socially isolated patients): 1 What type of physical activity do you participate in: other Details: Tredmill Duration: 45-60 minutes/day Frequency: 5-6 times per week Special isi needs: No Seatbelt use: always Helmet use: Yes Helmet use: always Drive 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 Working smoke detector in home: No Fire extinguisher in home: No Carbon monox detector in home: No Do you feel safe at home: Yes Do you feel safe in your relationship?: Yes PAWSS <Senait Rodas - Last Filed: 09/26/24 21:25> Have you Been Recently Intoxicated or Drunk Within the Last 30 days?: No Have you Ever Experienced Previous Episodes of Alcohol Withdrawal?: No Have you ever Experienced Withdrawal Seizures?: No Have you ever Experienced Delirium Tremens(DT)s?: No Have you ever undergone Alcohol Rehabilitation Treatment (i.e, inpt ot outpatient treatment programs)?: No Have you ever Experienced Blackouts?: No Have you ever Combined Alcohol with other Downers within the last 90 days?: No Have you ever Combined Alcohol with any other Substance of Abuse during the last 90 days?: No Positive Blood Alcohol level on Presentation? [PCS.BAL]: No Evidence of Increased Autonomic Activity (i.e. HR>120, tremor, sweating, agitation, nausea)?: No Result: 0 <Anny Ochoa MD - Last Filed: 09/26/24 19:59> Result: 0 POCUS Exam (ED) <Anny Ochoa MD - Last Filed: 09/26/24 19:59> Limited Cardiac Exam DATE OF EXAM: 09/26/24 TIME OF EXAM: 19:30 PROVIDER THAT PERFORMED THE STUDY: Anny Ochoa REASON FOR EXAM: Chest pain and Congestive heart failure VIEW OBTAINED: Subxiphoid and Other (b/l lung apices) DIFFERENTIAL DIAGNOSES: Very difficult windows, unable to meaningfully comment on LV function. Occasional B lines L. anterior lung [place]. Did not tolerate exam
[2024-09-26 17:36] LABS: INR 1.1 (0.9-1.1); PTT Activated 24.5 sec (20.6-30.2); Prothrombin Time 10.9 sec (9.1-11.1)
[2024-09-26 17:51] LABS: ALT 17 U/L (16-63); AST 15 U/L (15-37); Albumin 3.7 g/dL (3.4-5.0); Alkaline Phosphatase 74 U/L (46-116); Anion Gap 8.5 mmol/L (3-11); BUN 41 mg/dL (7-18); Bilirubin, Total 0.4 mg/dL (0.2-1.0); CO2 25.5 mmol/L (21.0-32.0); CREATININE 1.5 mg/dL (0.70-1.30); Calcium 10.2 mg/dL (8.5-10.1); Chloride 106 mmol/L (98-107); Estimated GFR 49.47 (mL/min/1.73m2); Glucose 137 mg/dL (74-106); Lipase 38 U/L (<78); Magnesium 1.6 mg/dL (1.8-2.4); NT-proBNP 1979 pg/mL (<300); Potassium 4.6 mmol/L (3.5-5.1); Sodium 140 mmol/L (136-145); Total Protein 7.1 g/dL (6.4-8.2); Troponin I 19 ng/L (<or=76)
--- NOTE | 2024-09-26 17:57 | DI.VRAD_ITS ---
PROCEDURE INFORMATION: Exam: CT Head Without Contrast Exam date and time: 09/26/2024 5:28 PM Age: 73 years old Clinical indication: Other: Headaches TECHNIQUE: Imaging protocol: Computed tomography of the head without contrast. Radiation optimization: All CT scans at this facility use at least one of these dose optimization techniques: automated exposure control; mA and/or kV adjustment per patient size (includes targeted exams where dose is matched to clinical indication); or iterative reconstruction. COMPARISON: CT HEAD CERVICAL SPINE WO 04/28/2024 3:13 PM FINDINGS: Brain: Mild volume loss No hemorrhage. Unremarkable white matter. No mass effect. Cerebral ventricles: Grossly stable ventriculomegaly. Paranasal sinuses: Visualized sinuses are unremarkable. No fluid levels. Mastoid air cells: Visualized mastoid air cells are well aerated. Bones: Unremarkable. No acute fracture. Soft tissues: Unremarkable. IMPRESSION: No acute intracranial abnormality. Grossly stable ventriculomegaly. Correlate for normal pressure hydrocephalus as clinically indicated Dictated and Authenticated by: Bjorn Jean MD. Orderin Grisel Sapp MD
--- NOTE | 2024-09-26 17:58 | DI.VRAD_ITS ---
PROCEDURE INFORMATION: Exam: XR Chest Exam date and time: 09/26/2024 5:40 PM Age: 73 years old Clinical indication: Pain; Chest pressure; Additional info: Chest pain TECHNIQUE: Imaging protocol: Radiologic exam of the chest. Views: 2 views. COMPARISON: CR XR CHEST 2V PA LATERAL 04/03/2023 9:46 AM FINDINGS: Lungs: Unremarkable. No consolidation. Pleural spaces: Unremarkable. No pleural effusion. No pneumothorax. Heart/Mediastinum: Grossly stable. Bones/joints: Unremarkable. IMPRESSION: No acute findings. Dictated and Authenticated by: Bjorn Jean MD. Orderin Grisel Sapp MD
[2024-09-26 18:15] LABS: TSH (W/Ref FT4) 2.65 uIU/mL (0.36-3.74)
[2024-09-26 18:42] LABS: Bilirubin Negative (Negative); Blood Negative (Negative); Clarity Clear (Clear); Glucose >=1000 mg/dL (Negative); Ketones Negative (Negative); Leukocyte Esterase Negative (Negative); Nitrite Negative (Negative); Specific Gravity 1.015 (1.005-1.025); Urobilinogen 0.2 mg/dL (Up to 0.2); pH 5.5 (5-8)
[2024-09-26 18:51] LABS: Bacteria Negative HPF (Negative); C & S Indicated? No; Casts Negative LPF (Negative); Crystals Negative HPF (Negative); Epithelial Cells Rare HPF (Negative); Mucus Negative (Negative); RBC Negative HPF (0-2); WBC Negative HPF (0-5)
[2024-09-26 19:07] LABS: Troponin I 21 ng/L (<or=76)
--- NOTE | 2024-09-26 19:59 | HPE_ITS ---
Date of service: 09/26/24 Time of Service: 19:59 Assessment and Plan Assessment and plan (1) Atypical chest pain: Start date: 09/26/24 Status: Acute Assessment and plan: This is a 73-year-old gentleman who presents after a 1 month history of intermittent chest tightness which was not associated with exertion but he thinks is associated with stress. He did not take nitroglycerin for his chest discomfort and these episodes were on provoked and self resolving. He is already on Eliquis but has not had a recent echocardiogram with a history of CHF and cardiomegaly. He appears to be well-controlled with his CHF. His symptoms are vague and he will be observed overnight with cardiac monitoring and trending lab with echocardiogram in the morning. Long-term he should have exercise stress test and see cardiology. He is a full code. (2) CHF (congestive heart failure), NYHA class II: Status: Chronic Assessment and plan: Continue outpatient medical therapy with 1 dose of IV Lasix given upon admission. (3) Hypomagnesemia: Start date: 09/26/24 Status: Acute Assessment and plan: Replete IV and follow-up lab in the morning. Long-term patient should be on magnesium supplement daily. (4) Coronary artery disease: Status: Chronic Assessment and plan: No evidence of acute ischemia with a history of CAD and patient does have nitroglycerin he takes for more typical exertional chest pain. He is not having typical angina at this time. As stated he is already anticoagulated and if send cardiology was not consulted with patient's symptoms being vague. If recurrent chest tightness, EKG should be done immediately and trial of nitroglycerin sublingually. (5) Essential hypertension: Status: Chronic Assessment and plan: Continue outpatient medical therapy. Adjust as needed. (6) Hyperlipidemia: Status: Chronic Assessment and plan: Continue statin therapy. (7) Atrial fibrillation: Status: Chronic Assessment and plan: Continue outpatient medical therapy and Eliquis. (8) MERRITT (obstructive sleep apnea): Status: Chronic Assessment and plan: Continue BiPAP at night the patient having his home machine. (9) Diabetes mellitus with neuropathy: Status: Chronic Assessment and plan: Hold outpatient medical therapy with glucometer measurements before meals and at bedtime and sliding scale coverage. (10) CKD (chronic kidney disease) stage 3, GFR 30-59 ml/min: Status: Chronic Assessment and plan: This appears stable and monitor while hospitalized. (11) Anemia: Status: Chronic Assessment and plan: This appears stable. (12) Acquired hypothyroidism: Status: Chronic Assessment and plan: Continue outpatient supplement. (13) Overactive bladder: Status: Chronic Assessment and plan: Continue outpatient medical therapy. History of Present Illness History of Present Illness Chief Complaint: Nonexertional chest pain for 1 month which is tightness without radiation. Narrative: This is a 73-year-old male patient who has had increased stress at home presenting with a 1 month history of intermittent chest tightness which is nonradiating and associate with stress but not physical exertion. He denies any diaphoresis, fever or chills congestion or cough and has had no weight change. He denies any GI symptoms other than slight nausea at times with a headache. He did hit his head 2 to 3 months ago while loading his wood stove. He had no other traumas or falls. He does have a history of diabetes mellitus and denies any hypoglycemia. He also has hypothyroidism, cardiomyopathy with cardiomegaly on x-ray and recent modification of his diuretics for CHF. He also has CKD, hypertension which is well-controlled, atrial fibrillation on Eliquis and CKD which is stable. He does use BiPAP for MERRITT at night. Has a history of anemia associate with his chronic diseases. His chest tightness has been self resolving as has been his headache. He has had no recent echocardiogram and this will be updated. He will receive 1 dose of Lasix on admission and continue his usual daily Lasix in the morning. His BNP is elevated but stable. I doubt this is CHF exacerbation. He will be hospitalized for trending lab and updated echocardiogram in the morning. [facility] cardiology was not consulted patient had an atypical presentation which is over a month and self resolving not typical of his angina factors. He did not take nitroglycerin for his chest discomfort. He is pain-free upon admission. He is already on Eliquis and heparin was not considered with the patient not appearing to have ischemic or vascular event. EKG was unrevealing and troponins were negative. He is a full code. Review of Systems Narrative: 13 point review of systems otherwise unrevealing or stable with patient being a poor historian. PFSH All Active Problems Atypical chest pain (Acute) Hypomagnesemia (Acute) Atypical chest pain (Acute) Arthritis of right knee (Acute) 40MG DEPO MEDROL 08/08/24 Localized osteoarthritis of left knee (Acute) 40mg DEPO MEDROL 08/08/24 Peripheral sensory neuropathy (Acute) Hammer toes, bilateral (Acute) Osteoarthritis of both knees (Acute) Laxity of knee joint (Acute) Sensation of knee instability (Acute) Unstable right knee (Acute) Cardiomyopathy (Acute) Toenail deformity (Acute) Coordination of complex care (Acute) Chart Review ID several Dx/Tx needing re-assessment or Hx requiring re- evaluation ([facility] apr?)(Bi-Pap ordered 12/2023, rec'd?)(Fe Infusion)(Vit D started? re-checked?)(++) Bradycardia (Acute) Noted for some time (1/2 dose trialed in 2021 before change in PCP)(chart reviewed, 05/30/23: dizziness incompletely evaluated 2' pt leaving [facility] AMA.. ACS ruled out 01/08-12/23.. Metoprolol decreased from 25mg BID per [facility], but maybe NOT implemented? ..and missed in FU! 05/30/23, ik Diuresis (Acute) actively diuresing, good results with q 2-3 days lasix (May 2023). Hx exacerbated CHF in Fall 2022 (AMA 2' intolerance diuretics, unable to get to bathroom; poor sleep 2' noise + uncomfortable bed)((Rx if HOSPTLZATN needed .. ik, 04/2023)) Pitting edema (Chronic) improved with diuretics (mar-apr 2023) .. cont q2 days.. [ ] [place] [facility] [place] Low vitamin D level (Acute) Very low, 7.9! Essential hypertension (Chronic 01/31/13) CHF (congestive heart failure), NYHA class II (Chronic) EF 40% (12/2022), decreased from 2019 .. Clinical Dx ClassII CKD (chronic kidney disease) stage 3, GFR 30-59 ml/min (Chronic) History of kidney injury (Acute) GLENYS 2' furosemide, 04/17/23, but needed for HF/Edema.. Seeing Nephrology (quarterly) Decreased dorsalis pedis pulse (Acute) per Pod, 01/13/23 (2/4) Absence of posterior tibial pulse (Acute) per Pod, 01/13/23 Coronary artery disease (Chronic) 3-vessel (LAD, LCX, RCA) Atrial fibrillation (Chronic) Apixaban 06/22/2019 Acute exacerbation of congestive heart failure (Acute) ED --> Hospitalized for diuresis, but no mosqueda & pt unable to sleep (left AMA) Cardiomegaly (Acute) CXR; ECHO 05/2019 [facility]--LVEF 53%, +LVH (mild), no significant valvular disease; stable compared with 2017 study Anemia (Chronic) Hx of iron deficiency anemia (Acute) improved with iron infusion, but did not feel better (possible iron infusions exacerb HF? ~ Mar--Apr 2023)(doubtful based on no IVF, but possible) Fatigue (Acute) Worsened per pt, affecting ADL .. not just de-conditioning? Hyperlipidemia (Chronic 08/17/12) Osteoarthritis of right knee (Acute) DEPO MEDROL 08/14/22 Arthritis of both knees (Chronic) MERRITT (obstructive sleep apnea) (Chronic) Bi-PAP 07/23/19 Diabetes mellitus with neuropathy (Chronic) Reduced monofilament 06/24/2019 Goal A1C 7.5% or less Uncontrolled diabetes mellitus (Acute) Ortho Surgery OK < 8 (Dr. Ceja).. 10/2023 .. Goal </=7.5% Current use of insulin (Chronic) Acquired hypothyroidism (Chronic 10/28/16) High TSH, but WNL T4 (2021) .. re-checking Cervical disc disorder with myelopathy (Acute) right arm Overactive bladder (Chronic) Myrbetriq RE-started, 03/2023.. rptd improved @ 04/10/23 ov, ik .. Oxybutynin, discontinued 06/24/19 in favor of optimizing DMT2 management Unsteady gait (Acute) Dizziness incompletely evaluated 2' pt leaving [facility] AMA.. ACS ruled out 01/08- 12/23.. Metoprolol decreased from 25mg BID per [facility], but maybe NOT implemented? ..and missed in FU! 05/30/23, ik Ataxia (Acute) Asymmetrical sensorineural hearing loss (Acute) Cognitive impairment (Acute) Forgetting, but using notes/print-outs .. ex(?)- helps .. Nail dystrophy (Acute) Onychomycosis (Acute) Tinea pedis (Acute) Blisters of multiple sites (Acute ~01/13/23) 01/13/23 [facility] note- Dr. Barker: Seropurulent Blisters, B/L legs.HE Metatarsalgia of left foot (Acute) Pain of right great toe (Acute) Medical History PAD (peripheral artery disease) Left, per [facility]VAL[facility] (12/2022) Stopped smoking with greater than 20 pack year history Lung CT Screening, 07/16/20 Epiretinal membrane (~01/2023) right eye Slow heart rate Noted for some time (1/2 dose trialed in 2021 before change in PCP)(chart reviewed, 05/30/23: dizziness incompletely evaluated 2' pt leaving [facility] AMA.. ACS ruled out 01/08-12/23.. Metoprolol decreased from 25mg BID per [facility], but maybe NOT implemented? ..and missed in FU! 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 Chronic and recurrent low back pain L4-[address] scan in 1993, recurrent since then intermittently. Hypomagnesemia (06/22/14) Only 1.0 in the ER today. Pipe smoker Surgical History History of colonoscopy (~02/2023) with Mac S/P cardiac catheterization (05/31/19) 2019 History of cataract removal with insertion of prosthetic lens (11/23/14) History of umbilical hernia repair Status post appendectomy Status post coronary artery stent placement (09/26/16) One vessel for unstable angina Status post coronary artery bypass with autogenous graft, 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) 2017 Repair of umbilical hernia Fracture, Open Treatment ORIF-LEFT SYNDESMOSIS WITH TWO SCREWS Colonoscopy - IV Sedation Extraction of cataract 11/23/14; DR. GOINS; RIGHT EYE 12/07/14; DR. GOINS; LEFT EYE Appendectomy Family History Father Diabetes Dementia Neoplasm PANCREATIC Social History Smoking/Tobacco Use Status: Former Tobacco Use Quit Date: 01/02/17 Pack-years: 40 Tobacco: How many years used: 40 Quit status: has quit before Smoking risk assessment performed?: Yes Alcohol Intake: current Alcohol Intake frequency: a few times a month Alcohol type: beer and hard liquor Counseling given: Yes Counseling provided: reduce to 2 or less/day Details: 2-3 oz at a time Drug use: Never Substance use type: does not use Adopted: No Caregiver/Support person: No Foster care: No Household members: none and other Details: Cats Housing: house Number of Children: 3 number of grandchildren: 4 Communication Needs: None Do you need help understanding health information?: Rarely Pets and animals: Yes Pets and animals: cat(s) Do you think of yourself as: straight/heterosexual Current gender identity: male What is your relationship status?: How often do you talk on the phone with friends or family?: three or more times per week How often do you get together with friends or relatives?: twice per week Panel score (0-1 are the most socially isolated patients): 1 What type of physical activity do you participate in: other Details: Tredmill Duration: 45-60 minutes/day Frequency: 5-6 times per week Special isi needs: No Seatbelt use: always Helmet use: Yes Helmet use: always Drive intox 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: No Working smoke detector in home: No Fire extinguisher in home: No Carbon monox detector in home: No Do you feel safe at home: Yes Do you feel safe in your relationship?: Yes Meds Allergies and Home Medications Allergies Allergy/AdvReac Type Severity Reaction Status Date / Time No Known Allergies Allergy Verified 09/26/24 16:42 Home Medications ?Medication ?Instructions ?Recorded ?Confirmed ?Type aspirin 81 mg tablet,delayed 81 mg PO DAILY 06/02/19 09/26/24 History release lancets 28 gauge (FreeStyle #400 ea 02/11/21 09/26/24 Rx Lancets) pen needle, diabetic 32 gauge x #400 ea 03/25/21 09/26/24 Rx /32 (BD Ultra-Fine Amber Pen Needle) flash glucose scanning reader #1 ea 11/17/21 09/26/24 Rx (FreeStyle Bahman 2 [place]) blood sugar diagnostic (Blood #400 ea 12/13/21 09/26/24 Rx Glucose Test strips) flash glucose sensor (FreeStyle #2 ea 11/27/22 09/26/24 Rx Bahman 2 Sensor kit) nitroglycerin 0.4 mg sublingual 0.4 mg sublingual Q5-15M PRN 01/26/23 09/26/24 History tablet insulin aspart U-100 100 unit/mL See Rx Instructions .Route 05/29/23 09/26/24 Rx (3 mL) subcutaneous pen (Novolog .COMPLEX #90 mL FlexPen U-100 Insulin aspart) apixaban 5 mg tablet (Eliquis) 5 mg PO BID #180 tabs 07/22/23 09/26/24 Rx metoprolol tartrate 25 mg tablet 25 mg PO BID #180 tab-caps 07/28/23 09/26/24 Rx insulin glargine 100 unit/mL (3 55 unit (0.55 mL) subcut QPM #60 mL 07/31/23 09/26/24 Rx mL) subcutaneous pen (Lantus Solostar U-100 Insulin) empagliflozin 25 mg tablet See Rx Instructions .Route 08/04/23 09/26/24 Rx (Jardiance) .COMPLEX #90 tabs rosuvastatin 40 mg tablet See Rx Instructions .Route 09/16/23 09/26/24 Rx .COMPLEX #90 tabs cholecalciferol (vitamin D3) 1,250 1,250 mcg PO QWEEK #10 caps 09/28/23 09/26/24 Rx mcg (50,000 unit) capsule ergocalciferol (vitamin D2) 1,250 1,250 mcg PO QWEEK 09/30/23 09/26/24 History mcg (50,000 unit) capsule Knee Brace - STABILIZING #1 ea 10/25/23 09/26/24 Rx fenofibrate nanocrystallized 145 145 mg PO DAILY #90 tab-caps 02/24/24 09/26/24 Rx mg tablet (Tricor) semaglutide 1 mg/dose (4 mg/3 mL) 1 mg (0.75 mL) subcut QWEEK #3 mL 04/14/24 09/26/24 Rx subcutaneous pen injector mirabegron 50 mg tablet,extended 50 mg PO DAILY #90 tabs 04/28/24 09/26/24 Rx release 24 hr (Myrbetriq) furosemide 40 mg tablet 40 mg PO DAILY PRN LEG SWELLING 05/03/24 09/26/24 Rx #90 tabs levothyroxine 50 mcg tablet See Rx Instructions .Route 05/03/24 09/26/24 Rx .COMPLEX #90 tabs nitroglycerin 0.4 mg sublingual 0.4 mg sublingual Q5M PRN chest 05/03/24 09/26/24 Rx tablet pain #90 tabs losartan 25 mg tablet See Rx Instructions .Route 07/06/24 09/26/24 Rx .COMPLEX #90 tabs Exam Narrative Exam Narrative: General: Patient appears appropriate for age, obese with large pannus, alert and oriented x 3 and in no acute distress. He has a flattened affect with slow, monotonous tone to voice. HEENT: Normocephalic, eyes with pupils equal and reactive to light symmetrically, extraocular movement intact and sclera anicteric. Oropharynx with slightly dry mucosa and fair dentition. Neck: Supple without JVD. Back: Stooped posture without CVA tenderness. Lungs: There aeration and clear to auscultation and percussion. No focalizing rales or rhonchi. No expiratory wheeze. Heart: Irregular irregular rhythm with normal rate. No appreciable murmur or gallop with distant heart sounds. Abdomen: Obese contour, pannus present, soft and nontender to palpation with no palpable hepatosplenomegaly. Bowel sounds positive in all quadrants. Genitalia/rectal: Exam deferred. Extremities: Without clubbing, cyanosis or pitting edema with nonpitting edema both lower extremities. Good capillary refill. Skin: Pale, warm and dry. Neuro: Cranial nerves II through XII gross intact, no focalized motor deficits. No tremor. Psych: Flattened affect with depressed mood. No abnormal thought processes. Remote and recent memory grossly intact. Results Imaging Imaging Studies: Exam: XR Chest Exam date and time: 09/26/2024 5:40 PM Age: 73 years old Clinical indication: Pain; Chest pressure; Additional info: Chest pain TECHNIQUE: Imaging protocol: Radiologic exam of the chest. Views: 2 views. COMPARISON: CR XR CHEST 2V PA LATERAL 04/03/2023 9:46 AM FINDINGS: Lungs: Unremarkable. No consolidation. Pleural spaces: Unremarkable. No pleural effusion. No pneumothorax. Heart/Mediastinum: Grossly stable. Bones/joints: Unremarkable. IMPRESSION: No acute findings. Exam: CT Head Without Contrast Exam date and time: 09/26/2024 5:28 PM Age: 73 years old Clinical indication: Other: Headaches TECHNIQUE: Imaging protocol: Computed tomography of the head without contrast. Radiation optimization: All CT scans at this facility use at least one of these dose optimization techniques: automated exposure control; mA and/or kV adjustment per patient size (includes targeted exams where dose is matched to clinical indication); or iterative reconstruction. COMPARISON: CT HEAD CERVICAL SPINE WO 04/28/2024 3:13 PM FINDINGS: Brain: Mild volume loss No hemorrhage. Unremarkable white matter. No mass effect. Cerebral ventricles: Grossly stable ventriculomegaly. Paranasal sinuses: Visualized sinuses are unremarkable. No fluid levels. Mastoid air cells: Visualized mastoid air cells are well aerated. Bones: Unremarkable. No acute fracture. Soft tissues: Unremarkable. IMPRESSION: No acute intracranial abnormality. Grossly stable ventriculomegaly. Correlate for normal pressure hydrocephalus as clinically indicated. Labs 09/26/24 17:16 09/26/24 17:16 Labs: Laboratory Results - last 24 hr 09/26/24 09/26/24 09/26/24 17:16 18:35 18:40 WBC 9.14 RBC 4.00 L Hgb 12.8 L Hct 39.4 L MCV 99 H MCH 32.0 MCHC 32.5 RDW 13.0 Plt Count 277 MPV 10.8 Immature Gran % 0.3 Neutrophils % 67.8 Lymphocytes % 21.6 Monocytes % 8.5 Eosinophils % 1.3 Basophils % 0.5 Nucleated RBC % 0.0 Absolute Neutrophils 6.19 Absolute Lymphocytes 1.97 Absolute Monocytes 0.78 Absolute Eosinophils 0.12 Absolute Basophils 0.05 PT 10.9 INR 1.1 APTT 24.5 Sodium 140 Potassium 4.6 Chloride 106 Carbon Dioxide 25.5 Anion Gap 8.5 BUN 41 H Creatinine 1.5 H Est GFR (CKD-EPI 2020) 49.47 Glucose 137 H Calcium 10.2 H Magnesium 1.6 L Total Bilirubin 0.4 AST 15 ALT 17 Alkaline Phosphatase 74 Troponin I 19 21 NT-Pro-B Natriuret Pep 1979 H Total Protein 7.1 Albumin 3.7 Lipase 38 TSH 2.65 Urine Color Yellow Urine Clarity Clear Urine pH 5.5 Ur Specific Hope 1.015 Urine Protein Negative Urine Ketones Negative Urine Blood Negative Urine Nitrite Negative Urine Bilirubin Negative Urine Urobilinogen 0.2 Ur Leukocyte Esterase Negative Urine RBC Negative Urine WBC Negative Ur Epithelial Cells Rare Urine Crystals Negative Urine Bacteria Negative Urine Casts Negative Urine Mucus Negative Ur Culture Indicated? No Urine Glucose >=1000 H Last Vital Signs Temp 36.7 C 09/26/24 16:36 Pulse 55 L 09/26/24 18:40 Resp 11 L 09/26/24 18:40 BP 144/83 H 09/26/24 18:33 Pulse Ox 99 09/26/24 18:40 PAWSS Have you Been Recently Intoxicated or Drunk Within the Last 30 days?: No Have you Ever Experienced Previous Episodes of Alcohol Withdrawal?: No Have you ever Experienced Withdrawal Seizures?: No Have you ever Experienced Delirium Tremens(DT)s?: No Have you ever undergone Alcohol Rehabilitation Treatment (i.e, inpt ot outpatient treatment programs)?: No Have you ever Experienced Blackouts?: No Have you ever Combined Alcohol with other Downers within the last 90 days?: No Have you ever Combined Alcohol with any other Substance of Abuse during the last 90 days?: No Positive Blood Alcohol level on Presentation? [PCS.BAL]: No Evidence of Increased Autonomic Activity (i.e. HR>120, tremor, sweating, agitation, nausea)?: No Result: 0 Time Spent Time spent with Patient: >75 minutes Time was spent: preparing to see the patient(eg.review tests), obtaining and/or reviewing separately otareplaced by [facility], ordering medications,tests, procedures, indepentently interpreting results and care coordination
[2024-09-26] MEDS: Magnesium Oxide 400 MG TAB 800 MG PO (20:17)
--- NOTE | 2024-09-26 21:05 | W.PC.ACHO ---
Registration Status: Primary Language: Preferred Language: ED Information & Data Chief Complaint Chest Pain 09/26/24 17:36 Other Complaint Headache 09/26/24 16:36 Triage Note patient has been having 09/26/24 16:36 chest pain for a week now with nausea, and headache since yesterday. Patient state he has triple bypass a long time ago (6-7 years ago) Medical / Surgical History PAD (peripheral artery disease) Stopped smoking with greater than 20 pack year history Epiretinal membrane (~01/2023) Slow heart rate Obesity Tubular adenoma of colon (~02/2023) Abrasion of skin of right lower leg Acute medial meniscus tear of right knee SARS-CoV-2 positive (~04/2021) Left ankle sprain Abnormal nuclear stress test History of nicotine dependence Tendinitis of right shoulder Sensorineural hearing loss, bilateral (02/15/15) Maisonneuve fracture of left fibula (05/07/16) Low back pain Kidney stone Erectile dysfunction of organic origin (08/07/15) Depressive disorder Bursitis of shoulder, right, adhesive (04/06/15) H/O renal calculi Umbilical hernia Chronic and recurrent low back pain Hypomagnesemia (06/22/14) Pipe smoker (Last Reviewed 09/26/24 @ 20:00 by Skyler Coley) History of colonoscopy (~02/2023) S/P cardiac catheterization (05/31/19) History of cataract removal with insertion of prosthetic lens (11/23/14) History of umbilical hernia repair Status post appendectomy Status post coronary artery stent placement (09/26/16) Status post coronary artery bypass with autogenous graft, 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) Repair of umbilical hernia Fracture, Open Treatment Colonoscopy - IV Sedation Extraction of cataract Appendectomy Most Recent Vital Signs Temperature 36.7 C 09/26/24 16:36 Temperature Source Oral 09/26/24 16:36 Pulse 47 L 09/26/24 20:50 Pulse 52 L 09/26/24 20:50 Respiratory Rate 12 09/26/24 20:50 Respiratory Effort Normal, Non-Labored 09/26/24 17:18 Respiratory Depth Normal 09/26/24 17:18 Respiratory Pattern Normal 09/26/24 17:18 Blood Pressure 136/52 L 09/26/24 20:31 Blood Pressure Mean 82 09/26/24 20:31 Pulse Oximetry 100 09/26/24 20:50 Oxygen Delivery Method Room Air 09/26/24 16:36 Oxygen Flow Rate 0 09/26/24 16:36 Pain Level 5 09/26/24 16:36 Allergies No Known Allergies Allergy (Verified 09/26/24 16:42) IV IV Catheter Type [Right Peripheral IV Antecubital] IV Catheter Gauge [Right 18 Antecubital] Diagnostics 09/26/24 09/26/24 09/26/24 Range/Units 20:54 18:40 18:35 WBC (4.4-10.8) 10^3/uL RBC (4.36-5.78) 10^6/uL Hgb (13.5-17.5) g/dL Hct (40.0-50.0) % MCV (80-95) fL MCH (27.0-33.0) pg MCHC (32.0-36.0) % RDW (11.8-14.1) % Plt Count (130-400) 10^3/uL MPV (8.0-11.0) fL Immature Gran % % Neutrophils % % Lymphocytes % % Monocytes % % Eosinophils % % Basophils % % Nucleated RBC % (0.0-0.3) % Absolute Neutrophils (1.2-6.7) 10^3/uL Absolute Lymphocytes (1.2-3.4) 10^3/uL Absolute Monocytes (0.1-0.8) 10^3/uL Absolute Eosinophils (0.0-0.7) 10^3/uL Absolute Basophils (0.0-0.2) 10^3/uL PT (9.1-11.1) sec INR (0.9-1.1) APTT (20.6-30.2) sec Sodium (136-145) mmol/L Potassium (3.5-5.1) mmol/L Chloride (98-107) mmol/L Carbon Dioxide (21.0-32.0) mmol/L Anion Gap (3-11) mmol/L BUN (7-18) mg/dL Creatinine (0.70-1.30) mg/dL Est GFR (CKD-EPI 2020) (mL/min/1.73m2) Glucose (74-106) mg/dL Calcium (8.5-10.1) mg/dL Magnesium (1.8-2.4) mg/dL Total Bilirubin (0.2-1.0) mg/dL AST (15-37) U/L ALT (16-63) U/L Alkaline Phosphatase (46-116) U/L Troponin I Pending 21 (<or=76) ng/L NT-Pro-B Natriuret Pep (<300) pg/mL Total Protein (6.4-8.2) g/dL Albumin (3.4-5.0) g/dL Lipase (<78) U/L TSH (0.36-3.74) uIU/mL Urine Color Yellow (Yellow) Urine Clarity Clear (Clear) Urine pH 5.5 (5-8) Ur Specific [place] 1.015 (1.005-1.025) Urine Protein Negative (Neg-Trace) mg/dL Urine Ketones Negative (Negative) mg/dL Urine Blood Negative (Negative) Urine Nitrite Negative (Negative) Urine Bilirubin Negative (Negative) Urine Urobilinogen 0.2 (Up to 0.2) mg/dL Ur Leukocyte Esterase Negative (Negative) Urine RBC Negative (0-2) HPF Urine WBC Negative (0-5) HPF Ur Epithelial Cells Rare (Negative) HPF Urine Crystals Negative (Negative) HPF Urine Bacteria Negative (Negative) HPF Urine Casts Negative (Negative) LPF Urine Mucus Negative (Negative) Ur Culture Indicated? No Urine Glucose >=1000 H (Negative) mg/dL COVID-19 Source Pending SARS-CoV-2 (PCR) Pending Influenza Type A (PCR) Pending Influenza Type B (PCR) Pending RSV (PCR) Pending 09/26/24 Range/Units 17:16 WBC 9.14 (4.4-10.8) 10^3/uL RBC 4.00 L (4.36-5.78) 10^6/uL Hgb 12.8 L (13.5-17.5) g/dL Hct 39.4 L (40.0-50.0) % MCV 99 H (80-95) fL MCH 32.0 (27.0-33.0) pg MCHC 32.5 (32.0-36.0) % RDW 13.0 (11.8-14.1) % Plt Count 277 (130-400) 10^3/uL MPV 10.8 (8.0-11.0) fL Immature Gran % 0.3 % Neutrophils % 67.8 % Lymphocytes % 21.6 % Monocytes % 8.5 % Eosinophils % 1.3 % Basophils % 0.5 % Nucleated RBC % 0.0 (0.0-0.3) % Absolute Neutrophils 6.19 (1.2-6.7) 10^3/uL Absolute Lymphocytes 1.97 (1.2-3.4) 10^3/uL Absolute Monocytes 0.78 (0.1-0.8) 10^3/uL Absolute Eosinophils 0.12 (0.0-0.7) 10^3/uL Absolute Basophils 0.05 (0.0-0.2) 10^3/uL PT 10.9 (9.1-11.1) sec INR 1.1 (0.9-1.1) APTT 24.5 (20.6-30.2) sec Sodium 140 (136-145) mmol/L Potassium 4.6 (3.5-5.1) mmol/L Chloride 106 (98-107) mmol/L Carbon Dioxide 25.5 (21.0-32.0) mmol/L Anion Gap 8.5 (3-11) mmol/L BUN 41 H (7-18) mg/dL Creatinine 1.5 H (0.70-1.30) mg/dL Est GFR (CKD-EPI 2020) 49.47 (mL/min/1.73m2) Glucose 137 H (74-106) mg/dL Calcium 10.2 H (8.5-10.1) mg/dL Magnesium 1.6 L (1.8-2.4) mg/dL Total Bilirubin 0.4 (0.2-1.0) mg/dL AST 15 (15-37) U/L ALT 17 (16-63) U/L Alkaline Phosphatase 74 (46-116) U/L Troponin I 19 (<or=76) ng/L NT-Pro-B Natriuret Pep 1979 H (<300) pg/mL Total Protein 7.1 (6.4-8.2) g/dL Albumin 3.7 (3.4-5.0) g/dL Lipase 38 (<78) U/L TSH 2.65 (0.36-3.74) uIU/mL Urine Color (Yellow) Urine Clarity (Clear) Urine pH (5-8) Ur Specific [place] (1.005-1.025) Urine Protein (Neg-Trace) mg/dL Urine Ketones (Negative) mg/dL Urine Blood (Negative) Urine Nitrite (Negative) Urine Bilirubin (Negative) Urine Urobilinogen (Up to 0.2) mg/dL Ur Leukocyte Esterase (Negative) Urine RBC (0-2) HPF Urine WBC (0-5) HPF Ur Epithelial Cells (Negative) HPF Urine Crystals (Negative) HPF Urine Bacteria (Negative) HPF Urine Casts (Negative) LPF Urine Mucus (Negative) Ur Culture Indicated? Urine Glucose (Negative) mg/dL COVID-19 Source SARS-CoV-2 (PCR) Influenza Type A (PCR) Influenza Type B (PCR) RSV (PCR) Intake and Output - 24 Hour Total 09/26/24 16:32 thru 09/26/24 16:36 Weight 85.729 kg Falls Risk Assessment History of Falls Previous History 09/26/24 17:18 Contributing Factors Unstable,Impairments, 09/26/24 17:18 Incontinence,Medications Ambulatory Aids Independent 09/26/24 17:18 Tubes/Lines None 09/26/24 17:18 Gait Evaluation W/no contributing factors 09/26/24 17:18 Cognition No cognitive impairment 09/26/24 17:18 Fall Total Score 37 09/26/24 17:18 Level of Risk Moderate Risk 09/26/24 17:18 Problems (Last Updated 09/26/24 @ 20:13 by Skyler Coley) Hypomagnesemia (Acute) Atypical chest pain (Acute) Essential hypertension (Chronic 01/31/13) CHF (congestive heart failure), NYHA class II (Chronic) CKD (chronic kidney disease) stage 3, GFR 30-59 ml/min (Chronic) Coronary artery disease (Chronic) Atrial fibrillation (Chronic) Anemia (Chronic) Hyperlipidemia (Chronic 08/17/12) MERRITT (obstructive sleep apnea) (Chronic) Diabetes mellitus with neuropathy (Chronic) Acquired hypothyroidism (Chronic 10/28/16) Overactive bladder (Chronic) v v v v v v v v v Sending and/or Receiving Nurses: Please use comment section below to note any information pertinent to the patient hand-off not included above. Information / Comments: Pt arrived to ED w/ x1 week intermittent chest pain/nausea/headache. CT/Xray benign, troponins flat. Pt has a PMHx of a triple bypass and a fib. A&Ox3, independent, VSS. 18G RAC. COVID swab done and sent to lab. Report received from: Hany Doe PM
[2024-09-26 21:26] LABS: Troponin I 22 ng/L (<or=76)
[2024-09-26 21:38] LABS: COVID-19 PCR Negative (Negative); Influenza A PCR Negative (Negative); Influenza B PCR Negative (Negative); RSV PCR Negative (Negative)
[2024-09-26 21:39] LABS: Source Nasopharynx
[2024-09-26] MEDS: Furosemide 40 MG/4 ML VIAL IVP (22:29)
[2024-09-26] MEDS: Rosuvastatin 20 MG TAB 40 MG PO (22:29)
[2024-09-26] MEDS: Apixaban 5 MG TAB PO (22:29)
[2024-09-26] MEDS: Metoprolol 12.5 MG TAB 25 MG PO (22:29)
[2024-09-26] MEDS: MAGNESIUM SULFATE 2 GM/50 ML BAG IV_INF (22:30)
[2024-09-26] MEDS: Normal Saline Flush 10 ML SYR IVP (22:30)
[2024-09-26] MEDS: Insulin Glargine 300 UNITS/3 ML PEN 30 UNITS SC (22:48)
--- NOTE | 2024-09-26 23:05 | RESPIRATORY ---
Pt has home respironics unit with settings of 20/12, ps min 4. Unit was checked for frayed wires, plugged in, and at bedside for pt use. Per pt he does not use anything in the humidification chamber.
[2024-09-27 03:12] VITALS: BP 125/63; PULSE 55; RESP 20; TEMP 36.4; O2SAT 99
[2024-09-27] MEDS: Levothyroxine 50 MCG TAB PO (06:31)
[2024-09-27 07:13] VITALS: BP 132/118; PULSE 49; RESP 18; TEMP 35.8; O2SAT 95
[2024-09-27] MEDS: Normal Saline Flush 10 ML SYR IVP ×2 (08:05→20:59)
[2024-09-27] MEDS: Insulin Aspart 300 UNITS/3 ML PEN SC ×4 (08:06→20:58)
[2024-09-27] MEDS: Mirabegron 50 MG TABCR PO (08:08)
[2024-09-27] MEDS: Aspirin E.C. 81 MG TABEC PO (08:08)
[2024-09-27] MEDS: Losartan 25 MG TAB PO (08:08)
[2024-09-27] MEDS: Metoprolol 12.5 MG TAB 25 MG PO ×2 (08:08→20:57)
[2024-09-27] MEDS: Fenofibrate, Micronized 145 MG TAB PO (08:08)
[2024-09-27] MEDS: Empaglifozin 25 MG TAB PO (08:09)
[2024-09-27] MEDS: Apixaban 5 MG TAB PO ×2 (08:09→20:57)
[2024-09-27 08:36] VITALS: BP 112/35; PULSE 52; RESP 16; TEMP 35.8; O2SAT 97
[2024-09-27 10:31] LABS: Abs Immature Grans 0.05 10^3/uL (0.0-0.06); Absolute Basophil Count 0.06 10^3/uL (0.0-0.2); Absolute Eosinophil Count 0.14 10^3/uL (0.0-0.7); Absolute Lymphocyte Count 2.16 10^3/uL (1.2-3.4); Absolute Monocyte Count 0.87 10^3/uL (0.1-0.8); Absolute Neutrophil Count 7.44 10^3/uL (1.2-6.7); Basophils % 0.6 %; Eosinophils % 1.3 %; HCT 44.6 % (40.0-50.0); HGB 14.5 g/dL (13.5-17.5); Immature Grans % 0.5 %; Lymphocytes % 20.1 %; MCH 32.2 pg (27.0-33.0); MCHC 32.5 % (32.0-36.0); MCV 99 fL (80-95); Monocytes % 8.1 %; Neutrophils % 69.4 %; Platelet Count 310 10^3/uL (130-400); RBC 4.51 10^6/uL (4.36-5.78); RDW 13.2 % (11.8-14.1); RDW-SD 47.7 fL; WBC 10.72 10^3/uL (4.4-10.8)
[2024-09-27 10:40] LABS: INR 1.1 (0.9-1.1); Prothrombin Time 10.9 sec (9.1-11.1)
[2024-09-27 10:44] LABS: ALT 18 U/L (16-63); AST 19 U/L (15-37); Albumin 4.3 g/dL (3.4-5.0); Alkaline Phosphatase 74 U/L (46-116); Anion Gap 7.2 mmol/L (3-11); BUN 47 mg/dL (7-18); Bilirubin, Total 0.6 mg/dL (0.2-1.0); CO2 28.8 mmol/L (21.0-32.0); CREATININE 1.9 mg/dL (0.70-1.30); Calcium 10.9 mg/dL (8.5-10.1); Chloride 103 mmol/L (98-107); Estimated GFR 37.25 (mL/min/1.73m2); Glucose 223 mg/dL (74-106); Magnesium 2.2 mg/dL (1.8-2.4); Potassium 4.7 mmol/L (3.5-5.1); Sodium 139 mmol/L (136-145); Total Protein 8.1 g/dL (6.4-8.2)
[2024-09-27 11:09] VITALS: BP 103/56; PULSE 56; RESP 16; TEMP 36.7; O2SAT 95
--- NOTE | 2024-09-27 11:17 | PDOC.CMIN ---
Date of service: 09/27/24 Time of Service: 11:17 Care Management Initial Assmt Initial Assessment Reason for Hospitalization: chest pain Functional Status/Living Situation Patient Presentation: Minh presented to the ED yesterday afternoon with c/o intermittent chest pain over the last month or so, also with c/o headache and occasional dyspnea. The pain seems to be associated with stress, but not necessarily with exertion. Yesterday it occurred again while he was in town, so he brought himself to the ED. Today Minh was lying in bed, watching TV, when CM met with him. He was very pleasant, and stated that he is feeling well. His main c/o today was that his knee is painful. Dr. Ceja is replacing it for him in November, and he really can't wait to be more active and in less pain. Minh declined the offer of a PT consult, stating that he will wait until his surgery. Minh is staying one more night in order to have an echocardiogram done tomorrow. Minh is eager to get this done. He stated that he may need a stress test as an outpatient, depending on the results of the echo. Minh lives alone, he is still to Alfreda, but they live separately. He is independent and denies the need for services. 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.) Instrumental Activities of Daily Living (ADLs): Independent Medications Medication Management: No Issues/Barriers identified Advance Directives Advance Directives: Do you have an Advance Directive: N 12/10/22 09:22 AD On File at [facility]: N 12/10/22 09:22 Date Asked 09/23/24 09/23/24 11:28 AD Date Reviewed 09/26/24 09/26/24 20:33 COLST On File at [facility] COLST Date Scanned Code Status Resuscitation Status Full Code Portal Pt does not currently have a portal and education provided: Yes Insurance Coverage/Financial Issues Insurance: Medicare Part A & B 4 Life MCR Supplement? Care Team Visit Care Team Role Provider Type Enrico Pedro MD [facility] STAFF PHYSICIAN Richard Jeffers Primary Care Provider NON-[facility] STAFF PHYSICIAN Senait Rodas Emergency Provider NURSE PRACTITIONER Skyler Coley Admit Provider NON-[facility] STAFF PHYSICIAN Attending Provider Discharge Potential Discharge Needs: PCP F/U Appt and Other (cardiology consult, echocardiogram and exercise stress test) Anticipated Barriers to Discharge: None Identified Patient/Family Education Needs: Review discharge instructions, discuss Ask Me Three Transportation: Private vehicle Plan: Minh will likely discharge home tomorrow after his echocardiogram is read. He will have no new services. He will f/u with his PCP and cardiology. Minh will transport home in a private vehicle and continue per his plan of care. CM will continue to follow. Social Determinants of Health Screening Social Determinants of health last assessed in clinic: 09/27/24 Will the Patient Participate in the Screening?: Yes Do you worry about having a steady place to live?: no Problems where you live: no known problems In the past 12 months, have you had to go without electric, gas, oil or water in your home?: no 1. Within the past 12 months, we worried whether our food would run out before we got money to buy more.: Don't know/refused 2. Within the past 12 months, the food we bought just didn't last and we didn't have money to get more.: Don't know/refused Has lack of transportation kept you from medical appointments or from doing things needed for daily living?: no Has anyone in your life made you feel unsafe or unsupported?: no How hard is it for you to pay for the very basics like food, housing, medical care, and heating? Would you say it is:: Not hard at all Do you want help finding or keeping work or a job?: I do not need or want help If for any reason you need help with day-to-day activities such as bathing, preparing meals, shopping, managing finances, etc., do you get the help you need?: I don?t need any help How often do you feel lonely or isolated from those around you?: Never Do you speak a language other than Irish at home?: No Does the patient want assistance with any of the above?: No PFSH All Active Problems Atypical chest pain (Acute) Hypomagnesemia (Acute) Atypical chest pain (Acute) Arthritis of right knee (Acute) 40MG DEPO MEDROL 08/08/24 Localized osteoarthritis of left knee (Acute) 40mg DEPO MEDROL 08/08/24 Peripheral sensory neuropathy (Acute) Hammer toes, bilateral (Acute) Osteoarthritis of both knees (Acute) Laxity of knee joint (Acute) Sensation of knee instability (Acute) Unstable right knee (Acute) Cardiomyopathy (Acute) Toenail deformity (Acute) Coordination of complex care (Acute) Chart Review ID several Dx/Tx needing re-assessment or Hx requiring re-evaluation ([facility] apr?)(Bi-Pap ordered 12/2023, rec'd?)(Fe Infusion)(Vit D started? re-checked?)(++) Bradycardia (Acute) Noted for some time (1/2 dose trialed in 2021 before change in PCP)(chart reviewed, 05/30/23: dizziness incompletely evaluated 2' pt leaving [facility] AMA.. ACS ruled out 01/08-12/23.. Metoprolol decreased from 25mg BID per [facility], but maybe NOT implemented? ..and missed in FU! 05/30/23, ik Diuresis (Acute) actively diuresing, good results with q 2-3 days lasix (May 2023). Hx exacerbated CHF in Fall 2022 (AMA 2' intolerance diuretics, unable to get to bathroom; poor sleep 2' noise + uncomfortable bed)((Rx if HOSPTLZATN needed .. ik, 04/2023)) Pitting edema (Chronic) improved with diuretics (mar-apr 2023) .. cont q2 days.. [ ] cardio [facility] [place] review/eval for ortho surgery Low vitamin D level (Acute) Very low, 7.9! Essential hypertension (Chronic 01/31/13) CHF (congestive heart failure), NYHA class II (Chronic) EF 40% (12/2022), decreased from 2019 .. Clinical Dx ClassII CKD (chronic kidney disease) stage 3, GFR 30-59 ml/min (Chronic) History of kidney injury (Acute) GLENYS 2' furosemide, 04/17/23, but needed for HF/Edema.. Seeing Nephrology (quarterly) Decreased dorsalis pedis pulse (Acute) per Pod, 01/13/23 (2/4) Absence of posterior tibial pulse (Acute) per Pod, 01/13/23 Coronary artery disease (Chronic) 3-vessel (LAD, LCX, RCA) Atrial fibrillation (Chronic) Apixaban 06/22/2019 Acute exacerbation of congestive heart failure (Acute) ED --> Hospitalized for diuresis, but no mosqueda & pt unable to sleep (left AMA) Cardiomegaly (Acute) CXR; ECHO 05/2019 [facility] [place]--LVEF 53%, +LVH (mild), no significant valvular disease; stable compared with 2017 study Anemia (Chronic) Hx of iron deficiency anemia (Acute) improved with iron infusion, but did not feel better (possible iron infusions exacerb HF? ~ Mar--Apr 2023)(doubtful based on no IVF, but possible) Fatigue (Acute) Worsened per pt, affecting ADL .. not just de-conditioning? Hyperlipidemia (Chronic 08/17/12) Osteoarthritis of right knee (Acute) DEPO MEDROL 08/14/22 Arthritis of both knees (Chronic) MERRITT (obstructive sleep apnea) (Chronic) Bi-PAP 07/23/19 Diabetes mellitus with neuropathy (Chronic) Reduced monofilament 06/24/2019 Goal A1C 7.5% or less Uncontrolled diabetes mellitus (Acute) Ortho Surgery OK < 8 (Dr. Ceja).. 10/2023 .. Goal </=7.5% Current use of insulin (Chronic) Acquired hypothyroidism (Chronic 10/28/16) High TSH, but WNL T4 (2021) .. re-checking Cervical disc disorder with myelopathy (Acute) right arm Overactive bladder (Chronic) Myrbetriq RE-started, 03/2023.. rptd improved @ 04/10/23 ov, ik .. Oxybutynin, discontinued 06/24/19 in favor of optimizing DMT2 management Unsteady gait (Acute) Dizziness incompletely evaluated 2' pt leaving [facility] AMA.. ACS ruled out 01/08-12/23.. Metoprolol decreased from 25mg BID per [facility], but maybe NOT implemented? ..and missed in FU! 05/30/23, ik Ataxia (Acute) Asymmetrical sensorineural hearing loss (Acute) Cognitive impairment (Acute) Forgetting, but using notes/print-outs .. ex(?)- helps .. Nail dystrophy (Acute) Onychomycosis (Acute) Tinea pedis (Acute) Blisters of multiple sites (Acute ~01/13/23) 01/13/23 [facility] note- Dr. Barker: Seropurulent Blisters, B/L legs.HE Metatarsalgia of left foot (Acute) Pain of right great toe (Acute) Medical History PAD (peripheral artery disease) Left, per [facility]VAL[facility] (12/2022) Stopped smoking with greater than 20 pack year [address] Screening, 07/16/20 Epiretinal membrane (~01/2023) right eye Slow heart rate Noted for some time (1/2 dose trialed in 2021 before change in PCP)(chart reviewed, 05/30/23: dizziness incompletely evaluated 2' pt leaving [facility] AMA.. ACS ruled out 01/08-12/23.. Metoprolol decreased from 25mg BID per [facility], but maybe NOT implemented? ..and missed in FU! 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 Chronic and recurrent low back pain L4-[address] scan in 1993, recurrent since then intermittently. Hypomagnesemia (06/22/14) Only 1.0 in the ER today. Pipe smoker Surgical History History of colonoscopy (~02/2023) with Mac S/P cardiac catheterization (05/31/19) 2019 History of cataract removal with insertion of prosthetic lens (11/23/14) History of umbilical hernia repair Status post appendectomy Status post coronary artery stent placement (09/26/16) One vessel for unstable angina Status post coronary artery bypass with autogenous graft, 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) 2017 Repair of umbilical hernia Fracture, Open Treatment ORIF-LEFT SYNDESMOSIS WITH TWO SCREWS Colonoscopy - IV Sedation Extraction of cataract 11/23/14; DR. GOINS; RIGHT EYE 12/07/14; DR. GOINS; LEFT EYE Appendectomy Family History Father Diabetes Dementia Neoplasm PANCREATIC Social History Smoking/Tobacco Use Status: Former Tobacco Use Quit Date: 01/02/17 Pack-years: 40 Tobacco: How many years used: 40 Quit status: has quit before Smoking risk assessment performed?: Yes Alcohol Intake: current Alcohol Intake frequency: a few times a month Alcohol type: beer and hard liquor Counseling given: Yes Counseling provided: reduce to 2 or less/day Details: 2-3 oz at a time Drug use: Never Substance use type: does not use Adopted: No Caregiver/Support person: No Foster care: No Household members: none and other Details: Cats Housing: house Number of Children: 3 number of grandchildren: 4 Communication Needs: None Do you need help understanding health information?: Rarely Pets and animals: Yes Pets and animals: cat(s) Do you think of yourself as: straight/heterosexual Current gender identity: male What is your relationship status?: How often do you talk on the phone with friends or family?: three or more times per week How often do you get together with friends or relatives?: twice per week Panel score (0-1 are the most socially isolated patients): 1 What type of physical activity do you participate in: other Details: Tredmill Duration: 45-60 minutes/day Frequency: 5-6 times per week Special isi needs: No Seatbelt use: always Helmet use: Yes Helmet use: always Drive intox 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 substitute bus driver: No Working smoke detector in home: No Fire extinguisher in home: No Carbon monox detector in home: No Do you feel safe at home: Yes Do you feel safe in your relationship?: Yes
[2024-09-27] MEDS: predniSONE 20 MG TAB 40 MG PO (14:01)
[2024-09-27 15:13] VITALS: BP 121/58; PULSE 52; RESP 16; TEMP 36.9; O2SAT 96
--- NOTE | 2024-09-27 16:56 | PHA.REVIEW2 ---
Pharmacy Admission Review Admission Clinical Review Admission Pharmacy Review: Atypical chest pain (Acute) Hypomagnesemia (Acute) Atypical chest pain (Acute) No Known Allergies Allergy (Verified 09/26/24 16:42) Resuscitation Status Full Code Height 5 ft 10 in Weight 132.358 kg Pharmacy Admission Review Renal Dosing Renal Dosing: BUN 47 mg/dL (7-18) H 09/27/24 10:20 Creatinine 1.9 mg/dL (0.70-1.30) H 09/27/24 10:20 Medications needing adjustments: Reviewed List of meds needing interventions: Scr increased from 1.5 to 1.9. Monitor trend. Anticoagulation Anticoagulation: Hgb 14.5 g/dL (13.5-17.5) 09/27/24 10:20 Hct 44.6 % (40.0-50.0) 09/27/24 10:20 Plt Count 310 10^3/uL (130-400) 09/27/24 10:20 INR 1.1 (0.9-1.1) 09/26/24 17:16 Creatinine 1.9 mg/dL (0.70-1.30) H 09/27/24 10:20 Therapeutic Anticoagulation: Reviewed (on apixaban + aspirin) Opiate Usage Evaluate Pain Scale/Pains Meds: N/A Relevant Labs Relevant Labs: Sodium 139 mmol/L (136-145) 09/27/24 10:20 Potassium 4.7 mmol/L (3.5-5.1) 09/27/24 10:20 Chloride 103 mmol/L (98-107) 09/27/24 10:20 Magnesium 2.2 mg/dL (1.8-2.4) 09/27/24 10:20 Electrolytes, C-Reactive P, ESR: Reviewed DM Control DM Control: Reviewed Insulin Dosing, Diabetic Medication: on glargine and aspart. AM [id number]. Cardiac Review Cardiac Review: Troponin I 22 ng/L (<or=76) 09/26/24 20:54 NT-Pro-B Natriuret Pep 1979 pg/mL (<300) H 09/26/24 17:16 IV to PO Switch IV Medications: Reviewed Home Meds Home Med List reviewed: Reviewed (takes semaglutide on fridays. pt will have brought in if still here. ) Current Meds Current Medication Order Review: Reviewed
[2024-09-27 19:41] VITALS: BP 151/55; PULSE 58; RESP 22; TEMP 36; O2SAT 95
[2024-09-27] MEDS: Acetaminophen 325 MG TAB PO (20:57)
[2024-09-27] MEDS: Rosuvastatin 20 MG TAB 40 MG PO (20:58)
[2024-09-27] MEDS: Insulin Glargine 300 UNITS/3 ML PEN 30 UNITS SC (20:58)
[2024-09-28] MEDS: Acetaminophen 325 MG TAB PO (01:02)
[2024-09-28 05:47] VITALS: BP 138/60; PULSE 50; RESP 18; TEMP 36.3; O2SAT 95
[2024-09-28] MEDS: Levothyroxine 50 MCG TAB PO (05:55)
[2024-09-28 06:26] LABS: Abs Immature Grans 0.05 10^3/uL (0.0-0.06); Absolute Basophil Count 0.03 10^3/uL (0.0-0.2); Absolute Lymphocyte Count 1.31 10^3/uL (1.2-3.4); Absolute Neutrophil Count 9.16 10^3/uL (1.2-6.7); Basophils % 0.3 %; HCT 41.3 % (40.0-50.0); Immature Grans % 0.4 %; Lymphocytes % 11.7 %; MCH 32.6 pg (27.0-33.0); MCHC 33.9 % (32.0-36.0); MCV 96 fL (80-95); MPV 11.6 fL (8.0-11.0); Monocytes % 5.6 %; Platelet Count 303 10^3/uL (130-400); RDW 12.8 % (11.8-14.1); RDW-SD 45.4 fL; WBC 11.17 10^3/uL (4.4-10.8)
[2024-09-28 06:31] LABS: Absolute Monocyte Count 0.63 10^3/uL (0.1-0.8)
[2024-09-28 06:44] LABS: ALT 18 U/L (16-63); AST 14 U/L (15-37); Albumin 3.8 g/dL (3.4-5.0); Alkaline Phosphatase 73 U/L (46-116); BUN 62 mg/dL (7-18); Bilirubin, Total 0.6 mg/dL (0.2-1.0); CREATININE 2.2 mg/dL (0.70-1.30); Calcium 10.6 mg/dL (8.5-10.1); Chloride 101 mmol/L (98-107); Estimated GFR 31.24 (mL/min/1.73m2); Glucose 303 mg/dL (74-106); Magnesium 2.1 mg/dL (1.8-2.4); Potassium 4.9 mmol/L (3.5-5.1); Sodium 138 mmol/L (136-145); Total Protein 7.4 g/dL (6.4-8.2)
[2024-09-28 07:40] VITALS: BP 132/64; PULSE 52; TEMP 36.4; O2SAT 98
[2024-09-28] MEDS: Insulin Aspart 300 UNITS/3 ML PEN SC ×2 (07:59→12:13)
[2024-09-28] MEDS: Apixaban 5 MG TAB PO (08:01)
[2024-09-28] MEDS: Losartan 25 MG TAB PO (08:01)
[2024-09-28] MEDS: Fenofibrate, Micronized 145 MG TAB PO (08:02)
[2024-09-28] MEDS: Aspirin E.C. 81 MG TABEC PO (08:02)
[2024-09-28] MEDS: Empaglifozin 25 MG TAB PO (08:02)
[2024-09-28] MEDS: predniSONE 20 MG TAB 40 MG PO (08:02)
[2024-09-28] MEDS: Mirabegron 50 MG TABCR PO (08:03)
[2024-09-28] MEDS: Normal Saline Flush 10 ML SYR IVP (08:04)
[2024-09-28 09:04] LABS: Lab Add On Test DONE
[2024-09-28] MEDS: Metoprolol 12.5 MG TAB 25 MG PO (09:08)
[2024-09-28 09:17] LABS: PHOSPHORUS 4.6 mg/dL (2.6-4.7)
[2024-09-28 11:39] VITALS: BP 148/63; PULSE 45; RESP 24; TEMP 35.8; O2SAT 95
--- NOTE | 2024-09-28 13:44 | PGE_ITS ---
Date of Service Date of service: 09/27/24 Time of Service: 14:30 Assessment and Plan Assessment and plan (1) Atypical chest pain: Start date: 09/26/24 Status: Acute Assessment and plan: Atypical chest pain, has not recurred after some initial diuresis. Benign evaluation so far. This may be non-cardiac. Repeat echo pending. (2) CHF (congestive heart failure), NYHA class II: Status: Chronic Assessment and plan: Euvolemic currntly Continue outpatient medical therapy (3) Hypomagnesemia: Start date: 09/26/24 Status: Acute Assessment and plan: normalized (4) Coronary artery disease: Status: Chronic Assessment and plan: continue outpatient therapy (5) Atrial fibrillation: Status: Chronic Assessment and plan: Continue outpatient medical therapy and Eliquis and meteprolol (6) MERRITT (obstructive sleep apnea): Status: Chronic Assessment and plan: Continue BiPAP at night the patient having his home machine. (7) Diabetes mellitus with neuropathy: Status: Chronic Assessment and plan: Resume outpatient medical therapy, continue glucometer measurements before meals and at bedtime and sliding scale coverage, titrate if remains high. (8) CKD (chronic kidney disease) stage 3, GFR 30-59 ml/min: Status: Chronic Assessment and plan: This appears stable and monitor while hospitalized. (9) Hypercalcemia: Status: Acute Assessment and plan: recent vitamin D not high. He is at risk for secondary hyperPTH with renal disease, get PTH/phos (10) Gout due to renal impairment involving toe of right foot: Status: Acute Assessment and plan: This is gout clinically. With high calcium pseudogout also possible. Treat with prednisone. Subjective Subjective Patient reports: no new complaints and feels better; denies nausea, vomiting, shortness of breath or fever Interval history since last seen: events: no events on telemetry He is feeling better. No recurrence of chest pain since admission. His breathing is normal for him. He has pain and swelling of his right first toe. Started about a month ago after stubbing it, but has continued. He hasn't had gout before. Exam Narrative Exam Narrative: General: Alert and oriented x 3 and in no acute distress. Lungs: There aeration and clear to auscultation and percussion. Heart: Irregular irregular rhythm with normal rate. No appreciable murmur or gallop with distant heart sounds. Abdomen: soft, NT. Extremities: Without clubbing, cyanosis. Mildl hyperpigmentation with scab on right gooden. Trace melissa ankle edema. Local redness, warmth, tenderness, edema around right 1st MTP. Good capillary refill. Objective Last Vital Signs Temp 35.8 C L 09/28/24 11:39 Pulse 45 L 09/28/24 11:39 Resp 24 09/28/24 11:39 BP 148/63 H 09/28/24 11:39 Pulse Ox 95 09/28/24 11:39 Laboratory Results - last 24 hr 09/28/24 09/28/24 05:58 09:03 WBC 11.17 H RBC 4.30 L Hgb 14.0 Hct 41.3 MCV 96 H MCH 32.6 MCHC 33.9 RDW 12.8 Plt Count 303 MPV 11.6 H Immature Gran % 0.4 Neutrophils % 82.0 Lymphocytes % 11.7 Monocytes % 5.6 Eosinophils % 0.0 Basophils % 0.3 Nucleated RBC % 0.0 Absolute Neutrophils 9.16 H Absolute Lymphocytes 1.31 Absolute Monocytes 0.63 Absolute Eosinophils 0.00 Absolute Basophils 0.03 Sodium 138 Potassium 4.9 Chloride 101 Carbon Dioxide 26.0 Anion Gap 11.0 BUN 62 H Creatinine 2.2 H Est GFR (CKD-EPI 2020) 31.24 Glucose 303 H Calcium 10.6 H Phosphorus 4.6 Magnesium 2.1 Total Bilirubin 0.6 AST 14 L ALT 18 Alkaline Phosphatase 73 Total Protein 7.4 Albumin 3.8 Add-On Test Request DONE PAWSS Have you Been Recently Intoxicated or Drunk Within the Last 30 days?: No Have you Ever Experienced Previous Episodes of Alcohol Withdrawal?: No Have you ever Experienced Withdrawal Seizures?: No Have you ever Experienced Delirium Tremens(DT)s?: No Have you ever undergone Alcohol Rehabilitation Treatment (i.e, inpt ot outpatient treatment programs)?: No Have you ever Experienced Blackouts?: No Have you ever Combined Alcohol with other Downers within the last 90 days?: No Have you ever Combined Alcohol with any other Substance of Abuse during the last 90 days?: No Positive Blood Alcohol level on Presentation? [PCS.BAL]: No Evidence of Increased Autonomic Activity (i.e. HR>120, tremor, sweating, agitation, nausea)?: No Result: 0 Time Spent with Patient Time Spent with Patient: 35-49 minutes Time was spent: preparing to see the patient(eg.review tests), obtaining and/or reviewing separately otained hiistory, ordering medications,tests, procedures, referring, communicating with other health care program resident, indepentently interpreting results, counseling the patient and care coordination
--- NOTE | 2024-09-28 13:54 | DSE_ITS ---
Date of service: 09/28/24 Time of Service: 13:54 DS: Diagnosis Discharge Diagnosis (1) Atypical chest pain: Status: Acute (2) CHF (congestive heart failure), NYHA class II: Status: Chronic (3) Hypomagnesemia: Status: Acute (4) Coronary artery disease: Status: Chronic (5) Atrial fibrillation: Status: Chronic (6) MERRITT (obstructive sleep apnea): Status: Chronic (7) Diabetes mellitus with neuropathy: Status: Chronic (8) CKD (chronic kidney disease) stage 3, GFR 30-59 ml/min: Status: Chronic (9) Hypercalcemia: Status: Acute (10) Gout due to renal impairment involving toe of right foot: Status: Acute Discharge Plan Disposition Patient Disposition: Home Condition: Stable Discharge Details Reason For Visit: Atypical chest pain,CAF,CHF,NIDDM Admit Date/Time: 09/26/24 20:30 Admit Provider: Skyler Coley Attending Provider: Skyler Coley Primary Care Provider: Richard Jeffers Hospital Course Hospital Course: This is a 73-year-old male patient with HFrEF/cardiomyopathy, CKD 3, atrial fibrillation on apixaban, BMI 40.8, MERRITT who has had increased stress at home presenting with a 1 month history of intermittent chest tightness. EKG and troponins were reassuring. He did receive a dose of IV furosemide in the emergency room but was not clearly fluid overloaded by the time of admission to the floor so his outpatient medicaitons were continued. His chest pain did not recur while on the floor. Echocardiogram was repeated which was limited by body habitus but showed a similar degree of global reduction in LV function as his 05/2023 echocardiogram. His creatinine was near his baseline of around 2. His magnesium was low at 1.6 and was supplemented. His calcium was mildly elevated. His vitamin D was recently low normal. His PTH and phos levels were sent. Phosphorus was 4.6, PTH pending. He had pain and swelling in his right great toe for several weeks. He said he stubbed it, and he did have an x-ray in August of the toe. The toe was warm and swollen c/w gout/podagra. He was prescribed prednisone with some improvement. He was sent home with 6 more days of tapering prednisone. He was discharged home without changing his home medication. He is on metoprolol, losartan, and empagliflozin for HFrEF. His postssium in on the high end so spironolactone was not used. PCP follow up: Consider need for stress testing Follow up PTH level, need for calcitriol therapy or further assessment of hypercalcemia Follow up right podagra, need for gout therapy Repeat BMP, Mg in 1 week, include uric acid levels. Home Meds and New Rx's Prescriptions: New prednisone 20 mg Tablet See Taper PO DAILY Qty: 7 0RF Taper: Prednisone 20mg taper 40 mg Daily for 2 Days and 0 Hour 20 mg Daily for 2 Days and 0 Hour 10 mg Daily for 2 Days and 0 Hour Continued nitroglycerin 0.4 mg tablet, sublingual 0.4 mg sublingual Q5-15M PRN Rx Instructions: do not exceed 3 doses per episode insulin aspart U-100 [Novolog FlexPen U-100 Insulin] 100 unit/mL (3 mL) insulin pen See Rx Instructions .ROUTE .COMPLEX Qty: 90 3RF Dose Instruction: INJECT 10 TO 30 UNITS BEFORE MEALS PER MEALTIME CORRECTION SCHEDULE Rx Instructions: INJECT 10 TO 30 UNITS BEFORE MEALS PER MEALTIME CORRECTION SCHEDULE (DME) FreeStyle Bahman 2 [place] Misc See Rx Instructions .ROUTE .MEDSUPPLY Qty: 1 0RF Rx Instructions: As directed (DME) Knee Brace - STABILIZING See Rx Instructions .Route .MEDSUPPLY Qty: 1 1RF Rx Instructions: One RT KNEE STABILIZING BRACE; mirabegron [Myrbetriq] 50 mg tablet extended release 24 hr 50 mg PO DAILY Qty: 90 3RF aspirin 81 mg tablet,delayed release (DR/EC) 81 mg PO DAILY Patient Comments: 06/02/19-replaces 325mg. daily dose. [facility] discharge note. JOBY Mchugh (DME) lancets [FreeStyle Lancets] 28 gauge misc See Rx Instructions .ROUTE .MEDSUPPLY Qty: 400 3RF Rx Instructions: to test BS 4X daily for DM/E11.9 and to keep A1c at or under 7.0% (DME) pen needle, diabetic [BD Ultra-Fine Amber Pen Needle] 32 gauge x 5/32 needle 1 ea Miscellaneous QID Qty: 400 3RF Rx Instructions: E11.65 to administer insulin 4x/day (DME) Blood Glucose Test Strip See Rx Instructions .MEDSUPPLY Qty: 400 3RF Rx Instructions: As directed to check blood glucose four times daily. On insulin. Dispense covered brand. (DME) FreeStyle Bahman 2 Sensor Kit See Rx Instructions .ROUTE .MEDSUPPLY Qty: 2 11RF Rx Instructions: As directed Eliquis 5 mg tablet 5 mg PO BID Qty: 180 3RF Rx Instructions: PLEASE EXPLAIN WHAT HAPPENED TO 05/29/23 PRESCRIPTION? metoprolol tartrate 25 mg tablet 25 mg PO BID Qty: 180 3RF Rx Instructions: Heart insulin glargine [Lantus Solostar U-100 Insulin] 100 unit/mL (3 mL) insulin pen 55 unit Sub-Q QPM Qty: 60 3RF Rx Instructions: Or as directed for dx: E11.65 Jardiance 25 mg tablet See Rx Instructions .ROUTE .COMPLEX Qty: 90 3RF Dose Instruction: TAKE 1 TABLET EVERY MORNING Rx Instructions: TAKE 1 TABLET EVERY MORNING rosuvastatin 40 mg tablet See Rx Instructions .ROUTE .COMPLEX Qty: 90 3RF Dose Instruction: TAKE 1 TABLET DAILY Rx Instructions: TAKE 1 TABLET DAILY cholecalciferol (vitamin D3) 1,250 mcg (50,000 unit) capsule 1,250 mcg PO QWEEK Qty: 10 0RF Rx Instructions: High dose Vit D, WEEKLY, per Nephro (unless already sent in?) fenofibrate nanocrystallized [Tricor] 145 mg tablet 145 mg PO DAILY Qty: 90 3RF semaglutide 1 mg/dose (4 mg/3 mL) pen injector 1 mg subcut QWEEK Qty: 3 5RF furosemide 40 mg tablet 40 mg PO DAILY PRN (Reason: LEG SWELLING) Qty: 90 3RF Rx Instructions: Re-start, 04/14 x 3-5 days levothyroxine 50 mcg tablet See Rx Instructions .ROUTE .COMPLEX Qty: 90 3RF Dose Instruction: TAKE 1 TABLET DAILY FOR THYROID Rx Instructions: TAKE 1 TABLET DAILY FOR THYROID nitroglycerin 0.4 mg tablet, sublingual 0.4 mg SL Q5M PRN (Reason: chest pain) Qty: 90 3RF Rx Instructions: Take 1 at onset of chest pain, may repeat x2 q5 min if pain continues. losartan 25 mg tablet See Rx Instructions .ROUTE .COMPLEX Qty: 90 0RF Dose Instruction: TAKE 1 TABLET AT BEDTIME FOR DIABETES, AND TO PROTECT KIDNEYS Rx Instructions: TAKE 1 TABLET AT BEDTIME FOR DIABETES, AND TO PROTECT KIDNEYS Discontinued ergocalciferol (vitamin D2) 1,250 mcg (50,000 unit) capsule 1,250 mcg PO QWEEK Rx Instructions: High dose Vit D, WEEKLY, per Nephro (unless already sent in?) Discharge Instructions Instructions: Gout, Heart Failure, Adult (DC) Additional Instructions: take the prednisone for 6 more days for what seems to be gout in your big toe. Try to follow a lower purine diet for gout. Stand Alone Forms: Nursing Discharge Form Referrals: Richard Jeffers [Primary Care Provider] - 10/24/24 12:30 am (Follow up ) Activity:: Activity as Tolerated Equipment/Supplies:: No Equipment Needed Diet:: Carb Counting Discharge Orders Discharge Orders: Discharge Order (Routine); Ordered 09/28/24 Ordered By: Enrico Pedro DS: Summary Time Spent with Patient providing and/or coordinating discharge services: Greater than 30 minutes Status at Discharge Functional status at discharge: independent ambulation Overall status at discharge: patient is back to baseline Mental Status: mental status grossly normal Speech and Movement: speech and movement normal Mood: congruent mood Affect: normal affect Quality:SDOH Health Related Social Needs: No Data to Display Exam Narrative Exam Narrative: General: Alert and oriented x 3 and in no acute distress. Lungs: There aeration and clear to auscultation and percussion. Heart: Irregular irregular rhythm with normal rate. No appreciable murmur or gallop with distant heart sounds. Abdomen: soft, NT. Extremities: Without clubbing, cyanosis. Mildl hyperpigmentation with dressing on right gooden. Trace melissa ankle edema. Less redness, warmth, tenderness, edema around right 1st MTP. Good capillary refill. Psych Mental Status: mental status grossly normal Speech and Movement: speech and movement normal Mood: congruent mood Affect: normal affect DS: Data Vitals/I&O Vitals and I&O: Vital Signs Temperature 35.8 C L 09/28/24 11:39 Temperature Source Temporal Artery Scan 09/28/24 11:39 Pulse 45 L 09/28/24 11:39 Pulse Rhythm Regular 09/26/24 21:35 Pulse 52 L 09/26/24 20:50 Respiratory Rate 24 09/28/24 11:39 Respiratory Effort Normal, Non-Labored 09/26/24 21:35 Respiratory Depth Normal 09/26/24 21:35 Respiratory Pattern Normal 09/26/24 21:35 Blood Pressure 148/63 H 09/28/24 11:39 Blood Pressure Mean 91 09/28/24 11:39 Pulse Oximetry 95 09/28/24 11:39 Oxygen Delivery Method Room Air 09/28/24 11:39 Oxygen Flow Rate 0 09/28/24 11:39 Pain Level 0 09/28/24 11:39 Comment RN notified 09/28/24 11:39 Intake & Output 09/27/24 09/28/24 09/28/24 23:59 11:59 23:59 Weight 129 kg Data Completed and Pending Labs on day of discharge: Labs from last 24 hours 09/28/24 09/28/24 09:03 05:58 WBC 11.17 H RBC 4.30 L Hgb 14.0 Hct 41.3 MCV 96 H MCH 32.6 MCHC 33.9 RDW 12.8 Plt Count 303 MPV 11.6 H Immature Gran % 0.4 Neutrophils % 82.0 Lymphocytes % 11.7 Monocytes % 5.6 Eosinophils % 0.0 Basophils % 0.3 Nucleated RBC % 0.0 Absolute Neutrophils 9.16 H Absolute Lymphocytes 1.31 Absolute Monocytes 0.63 Absolute Eosinophils 0.00 Absolute Basophils 0.03 Sodium 138 Potassium 4.9 Chloride 101 Carbon Dioxide 26.0 Anion Gap 11.0 BUN 62 H Creatinine 2.2 H Est GFR (CKD-EPI 2020) 31.24 Glucose 303 H Calcium 10.6 H Phosphorus 4.6 Magnesium 2.1 Total Bilirubin 0.6 AST 14 L ALT 18 Alkaline Phosphatase 73 Total Protein 7.4 Albumin 3.8 PTH Intact Pending Add-On Test Request DONE PFS All Active Problems (Updated 09/28/24 @ 13:52 by Enrico Pedro) Gout due to renal impairment involving toe of right foot (Acute) Hypercalcemia (Acute) Atypical chest pain (Acute) Hypomagnesemia (Acute) Atypical chest pain (Acute) Arthritis of right knee (Acute) 40MG DEPO MEDROL 08/08/24 Localized osteoarthritis of left knee (Acute) 40mg DEPO MEDROL 08/08/24 Peripheral sensory neuropathy (Acute) Hammer toes, bilateral (Acute) Osteoarthritis of both knees (Acute) Laxity of knee joint (Acute) Sensation of knee instability (Acute) Unstable right knee (Acute) Cardiomyopathy (Acute) Toenail deformity (Acute) Coordination of complex care (Acute) Chart Review ID several Dx/Tx needing re-assessment or Hx requiring re- evaluation ([facility] apr?)(Bi-Pap ordered 12/2023, rec'd?)(Fe Infusion)(Vit D started? re-checked?)(++) Bradycardia (Acute) Noted for some time (1/2 dose trialed in 2021 before change in PCP)(chart reviewed, 05/30/23: dizziness incompletely evaluated 2' pt leaving [facility] AMA.. ACS ruled out 01/08-12/23.. Metoprolol decreased from 25mg BID per [facility], but maybe NOT implemented? ..and missed in FU! 05/30/23, sung CHF (congestive heart failure), NYHA class II (Chronic) EF 40% (12/2022), decreased from 2019 .. Clinical Dx ClassII Diuresis (Acute) actively diuresing, good results with q 2-3 days lasix (May 2023). Hx exacerbated CHF in Fall 2022 (AMA 2' intolerance diuretics, unable to get to bathroom; poor sleep 2' noise + uncomfortable bed)((Rx if HOSPTLZATN needed .. ik, 04/2023)) Decreased dorsalis pedis pulse (Acute) per Pod, 01/13/23 (2/4) Absence of posterior tibial pulse (Acute) per Pod, 01/13/23 Pitting edema (Chronic) improved with diuretics (mar-apr 2023) .. cont q2 days.. [ ] cardio [facility] [place]/eval for ortho surgery CKD (chronic kidney disease) stage 3, GFR 30-59 ml/min (Chronic) Acute exacerbation of congestive heart failure (Acute) ED --> Hospitalized for diuresis, but no mosqueda & pt unable to sleep (left AMA) Blisters of multiple sites (Acute ~01/13/23) 01/13/23 [facility] note- Dr. Barker: Seropurulent Blisters, B/L legs.HE Low vitamin D level (Acute) Very low, 7.9! History of kidney injury (Acute) GLENYS 2' furosemide, 04/17/23, but needed for HF/Edema.. Seeing Nephrology (quarterly) Pain of right great toe (Acute) Metatarsalgia of left foot (Acute) Fatigue (Acute) Worsened per pt, affecting ADL .. not just de-conditioning? Hx of iron deficiency anemia (Acute) improved with iron infusion, but did not feel better (possible iron infusions exacerb HF? ~ Mar--Apr 2023)(doubtful based on no IVF, but possible) Osteoarthritis of right knee (Acute) DEPO MEDROL 08/14/22 Tinea pedis (Acute) Onychomycosis (Acute) Nail dystrophy (Acute) Cognitive impairment (Acute) Forgetting, but using notes/print-outs .. ex(?)- helps .. Asymmetrical sensorineural hearing loss (Acute) Ataxia (Acute) Unsteady gait (Acute) Dizziness incompletely evaluated 2' pt leaving [facility] AMA.. ACS ruled out 01/08- 12/23.. Metoprolol decreased from 25mg BID per [facility], but maybe NOT implemented? ..and missed in FU! 05/30/23, ik Anemia (Chronic) Diabetes mellitus with neuropathy (Chronic) Reduced monofilament 06/24/2019 Goal A1C 7.5% or less Uncontrolled diabetes mellitus (Acute) Ortho Surgery OK < 8 (Dr. Ceja).. 10/2023 .. Goal </=7.5% Atrial fibrillation (Chronic) Apixaban 06/22/2019 Overactive bladder (Chronic) Myrbetriq RE-started, 03/2023.. rptd improved @ 04/10/23 ov, ik .. Oxybutynin, discontinued 06/24/19 in favor of optimizing DMT2 management Coronary artery disease (Chronic) 3-vessel (LAD, LCX, RCA) Cardiomegaly (Acute) CXR; ECHO 05/2019 [facility]--LVEF 53%, +LVH (mild), no significant valvular disease; stable compared with 2017 study Hyperlipidemia (Chronic 08/17/12) Essential hypertension (Chronic 01/31/13) Cervical disc disorder with myelopathy (Acute) right arm Acquired hypothyroidism (Chronic 10/28/16) High TSH, but WNL T4 (2021) .. re-checking Current use of insulin (Chronic) MERRITT (obstructive sleep apnea) (Chronic) Bi-PAP 07/23/19 Arthritis of both knees (Chronic) Medical History PAD (peripheral artery disease) Left, per OSVALDO (12/2022) Stopped smoking with greater than 20 pack year history Lung CT Screening, 07/16/20 Epiretinal membrane (~01/2023) right eye Slow heart rate Noted for some time (1/2 dose trialed in 2021 before change in PCP)(chart reviewed, 05/30/23: dizziness incompletely evaluated 2' pt leaving [facility] AMA.. ACS ruled out 01/08-12/23.. Metoprolol decreased from 25mg BID per [facility], but maybe NOT implemented? ..and missed in FU! 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 Chronic and recurrent low back pain L4-[address] scan in 1993, recurrent since then intermittently. Hypomagnesemia (06/22/14) Only 1.0 in the ER today. Pipe smoker Surgical History History of colonoscopy (~02/2023) with Mac S/P cardiac catheterization (05/31/19) 2019 History of cataract removal with insertion of prosthetic lens (11/23/14) History of umbilical hernia repair Status post appendectomy Status post coronary artery stent placement (09/26/16) One vessel for unstable angina Status post coronary artery bypass with autogenous graft, 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) 2017 Repair of umbilical hernia Fracture, Open Treatment ORIF-LEFT SYNDESMOSIS WITH TWO SCREWS Colonoscopy - IV Sedation Extraction of cataract 11/23/14; DR. GOINS; RIGHT EYE 12/07/14; DR. GOINS; LEFT EYE Appendectomy Family History Father Diabetes Dementia Neoplasm PANCREATIC Social History Smoking/Tobacco Use Status: Former Tobacco Use Quit Date: 01/02/17 Pack-years: 40 Tobacco: How many years used: 40 Quit status: has quit before Smoking risk assessment performed?: Yes Alcohol Intake: current Alcohol Intake frequency: a few times a month Alcohol type: beer and hard liquor Counseling given: Yes Counseling provided: reduce to 2 or less/day Details: 2-3 oz at a time Drug use: Never Substance use type: does not use Adopted: No Caregiver/Support person: No Foster care: No Household members: none and other Details: Cats Housing: house Number of Children: 3 number of grandchildren: 4 Communication Needs: None Do you need help understanding health information?: Rarely Pets and animals: Yes Pets and animals: cat(s) Do you think of yourself as: straight/heterosexual Current gender identity: male What is your relationship status?: How often do you talk on the phone with friends or family?: three or more times per week How often do you get together with friends or relatives?: twice per week Panel score (0-1 are the most socially isolated patients): 1 What type of physical activity do you participate in: other Details: Tredmill Duration: 45-60 minutes/day Frequency: 5-6 times per week Special isi needs: No Seatbelt use: always Helmet use: Yes Helmet use: always Drive intox 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 semi truck driver: No Working smoke detector in home: No Fire extinguisher in home: No Carbon monox detector in home: No Do you feel safe at home: Yes Do you feel safe in your relationship?: Yes Time Spent with Patient Time Spent with Patient: 45-69 minutes Time was spent: preparing to see the patient(eg.review tests), obtaining and/or reviewing separately otained hiistory, ordering medications,tests, procedures, referring, communicating with other health respiratory care specialist, indepentently interpreting results, counseling the patient and care coordination
--- NOTE | 2024-09-28 15:15 | PDOC.CMDIS ---
Date of service: 09/28/24 Time of Service: 15:15 LACE Index Scoring Tool Questions: Length of Stay (in days): 2 Was the patient admitted via the E.D.?: Yes Comorbidities: Diabetes w/o Complication, Congestive Heart Failure and Mild Liver/Renal Disease E.D. Visits: 3 Answers: Total Score: 13 Risk of Readmission: High Risk Care Management Discharge Plan Reason for Hospitalization: chest pain Discharge Plan: Minh will discharge home this afternoon with no new services. He will f/u with his PCP on 10/24 and continue to see his community providers. [facility] will transport himself home. Patient/Family Education Needs: Review of discharge instructions, activity, limitations, and discuss Ask me 3. SDOH Health Related Social Needs: No Data to Display
[2024-09-28 18:46] LABS: Parathyroid Hormone,Intact 20 pg/mL (19-88)
== END 2024-09-28 17:30 | disposition home or self-care (01) ==
LOC: ER 20:33 → MS 21:08
PROVIDERS: Admitting Provider Family Medicine; Emergency Provider Nurse Practitioner Family; PCP Student in an Organized Health Care Education/Training Program; Responsible Provider Family Medicine; Visit Provider Family Medicine
DX: I50.22 Chronic systolic (congestive) heart failure (principal); E83.42 Hypomagnesemia; I45.2 Bifascicular block; E78.2 Mixed hyperlipidemia; I48.20 Chronic atrial fibrillation, unspecified; R07.89 Other chest pain; G47.33 Obstructive sleep apnea (adult) (pediatric); E11.40 Type 2 diabetes mellitus with diabetic neuropathy, unspecified; Z79.4 Long term (current) use of insulin; I13.0 Hypertensive heart and chronic kidney disease with heart failure and stage 1 through stage 4 chronic kidney disease, or unspecified chronic kidney disease; D63.1 Anemia in chronic kidney disease; E03.9 Hypothyroidism, unspecified; N32.81 Overactive bladder; M10.371 Gout due to renal impairment, right ankle and foot; E83.52 Hypercalcemia; I42.9 Cardiomyopathy, unspecified; N18.30 Chronic kidney disease, stage 3 unspecified; D50.9 Iron deficiency anemia, unspecified; Z68.41 Body mass index [BMI] 40.0-44.9, adult; E66.9 Obesity, unspecified; I25.10 Atherosclerotic heart disease of native coronary artery without angina pectoris
CPT/HCPCS: 00123; 36415; 80053; 83690; 87637; 93005; 96365; 96366; 96375; 99285; 70450; 71046; 81003; 81015; 83735; 83880; 83970; 84100; 84443; 84484; 85025; 85610; 85730; 93010; 93306; 99223; 99232; 99239; G0378; J1815; J1938; J3475; J3490; J7512

== ENCOUNTER 2024-10-03 17:34 | Emergency (ER) | payer MEDICARE, OTHER, SELFPAY ==
[2024-10-03 17:47] VITALS: BP 114/50; PULSE 59; RESP 18; TEMP 36.4; O2SAT 95
--- NOTE | 2024-10-03 18:00 | DI.RAD_ITS ---
Exam(s) XR FOOT LT COMPLETE EXAM: XR FOOT LT COMPLETE CLINICAL HISTORY: swelling and pain to DIP 3rd toe. TECHNIQUE: 2D digital imaging was performed. COMPARISON: Prior left foot images of 12/09/2022 FINDINGS: 3 views There is no evidence of acute fracture or diastasis of the Lisfranc joint. Great toe metatarsophalan geal joint appears unremarkable. There is an osteophytic density parallel to the lateral aspect of the head of the 2nd metatarsal, unc hanged from images of 12/09/2022. Another small calcific density seen off of the lateral aspect of t he base of the proximal phalanx of the 4th toe, also unchanged.. There is a new 2 millimeter calcific density adjacent to the lateral aspect of the head of the proxim al phalanx of the 2nd toe. This was not evident on the 2022 images. There is, however, no obvious f racture at this level. With respect of the 3rd toe (apparent region of clinical interest), there is no evidence of fracture nor para-articular calcifications. No new erosions. No radiopaque foreign bodies. No radiographic evidence of osteomyelitis. IMPRESSION: 1. No acute osseous findings in the 3rd toe, as per request. 2. Other findings as described individually above. DATA REPOSITORY: RADIATION DOSE DELIVERED:
--- NOTE | 2024-10-03 18:10 | W.ED.GENAD ---
Discharge Plan Disposition Patient Disposition: Home Condition: Good Discharge Details Clinical Impression: Abscess Primary Care Provider: Richard Jeffers ED Provider: Senait Samuel Home Meds and New Rx's Prescriptions: New doxycycline hyclate 100 mg capsule 100 mg PO BID Qty: 14 0RF No Action nitroglycerin 0.4 mg tablet, sublingual 0.4 mg sublingual Q5-15M PRN Rx Instructions: do not exceed 3 doses per episode insulin aspart U-100 [Novolog FlexPen U-100 Insulin] 100 unit/mL (3 mL) insulin pen See Rx Instructions .ROUTE .COMPLEX Qty: 90 3RF Dose Instruction: INJECT 10 TO 30 UNITS BEFORE MEALS PER MEALTIME CORRECTION SCHEDULE Rx Instructions: INJECT 10 TO 30 UNITS BEFORE MEALS PER MEALTIME CORRECTION SCHEDULE (DME) FreeStyle Bahman 2 Chelsea Misc See Rx Instructions .ROUTE .MEDSUPPLY Qty: 1 0RF Rx Instructions: As directed (DME) Knee Brace - STABILIZING See Rx Instructions .Route .MEDSUPPLY Qty: 1 1RF Rx Instructions: One RT KNEE STABILIZING BRACE; mirabegron [Myrbetriq] 50 mg tablet extended release 24 hr 50 mg PO DAILY Qty: 90 3RF aspirin 81 mg tablet,delayed release (DR/EC) 81 mg PO DAILY Patient Comments: 06/02/19-replaces 325mg. daily dose. [facility] [place] discharge note. JOBY Mchugh (DME) lancets [FreeStyle Lancets] 28 gauge misc See Rx Instructions .ROUTE .MEDSUPPLY Qty: 400 3RF Rx Instructions: to test BS 4X daily for DM/E11.9 and to keep A1c at or under 7.0% (DME) pen needle, diabetic [BD Ultra-Fine Amber Pen Needle] 32 gauge x 5/32 needle 1 ea Miscellaneous QID Qty: 400 3RF Rx Instructions: E11.65 to administer insulin 4x/day (DME) Blood Glucose Test Strip See Rx Instructions .MEDSUPPLY Qty: 400 3RF Rx Instructions: As directed to check blood glucose four times daily. On insulin. Dispense covered brand. (DME) FreeStyle Bahman 2 Sensor Kit See Rx Instructions .ROUTE .MEDSUPPLY Qty: 2 11RF Rx Instructions: As directed Eliquis 5 mg tablet 5 mg PO BID Qty: 180 3RF Rx Instructions: PLEASE EXPLAIN WHAT HAPPENED TO 05/29/23 PRESCRIPTION? metoprolol tartrate 25 mg tablet 25 mg PO BID Qty: 180 3RF Rx Instructions: Heart insulin glargine [Lantus Solostar U-100 Insulin] 100 unit/mL (3 mL) insulin pen 55 unit Sub-Q QPM Qty: 60 3RF Rx Instructions: Or as directed for dx: E11.65 Jardiance 25 mg tablet See Rx Instructions .ROUTE .COMPLEX Qty: 90 3RF Dose Instruction: TAKE 1 TABLET EVERY MORNING Rx Instructions: TAKE 1 TABLET EVERY MORNING rosuvastatin 40 mg tablet See Rx Instructions .ROUTE .COMPLEX Qty: 90 3RF Dose Instruction: TAKE 1 TABLET DAILY Rx Instructions: TAKE 1 TABLET DAILY cholecalciferol (vitamin D3) 1,250 mcg (50,000 unit) capsule 1,250 mcg PO QWEEK Qty: 10 0RF Rx Instructions: High dose Vit D, WEEKLY, per Nephro (unless already sent in?) fenofibrate nanocrystallized [Tricor] 145 mg tablet 145 mg PO DAILY Qty: 90 3RF semaglutide 1 mg/dose (4 mg/3 mL) pen injector 1 mg subcut QWEEK Qty: 3 5RF furosemide 40 mg tablet 40 mg PO DAILY PRN (Reason: LEG SWELLING) Qty: 90 3RF Rx Instructions: Re-start, 04/14 x 3-5 days levothyroxine 50 mcg tablet See Rx Instructions .ROUTE .COMPLEX Qty: 90 3RF Dose Instruction: TAKE 1 TABLET DAILY FOR THYROID Rx Instructions: TAKE 1 TABLET DAILY FOR THYROID nitroglycerin 0.4 mg tablet, sublingual 0.4 mg SL Q5M PRN (Reason: chest pain) Qty: 90 3RF Rx Instructions: Take 1 at onset of chest pain, may repeat x2 q5 min if pain continues. 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 You had a small abscess on your toe. Some pus was able to be expressed from a needle aspiration. Please wash your foot daily with antibacterial soap and water (dove gold soap is a good option). I recommend also soaking in warm water to help with healing. Change the bandage with each time you wash or soak your foot. Keep your foot clean and dry. You are being treated with doxycycline to help treat localized infection. Take the full course as prescribed. Please note that this may cause a photosensitivity rash with exposure to sun, avoid the sun during the highest hours of the day, from 10 AM to 2 PM and wear sunscreen when you are outside. Wear long sleeves and try to make sure to cover up the back of your neck. Return to emergency care if you notice any signs of worsening infection such as increasing redness/swelling, streaking up your leg, general feeling of malaise, or if you are very worried you need to be rechecked again immediately HPI General Date/Time Provider Initiated Documentation: 10/03/24 17:47. HPI Narrative: Minh (Olaf legal name) is a 23-year-old male who presents to the emergency department today for redness and tenderness to his left third toe. Recently hospitalized for atypical chest pain and CHF, also diagnosed with gout and started on a prednisone taper. Recently completed prednisone, says is fully resolved with gout in his right foot. Says he has had some redness and discomfort to the left third toes DIP for the last month, but it became worse since completing the prednisone, now is more reddened and tender. Denies fever/chills, respiratory symptoms such as congestion/sore throat/cough, change in p.o. intake, change in bowel or bladder function. No distal numbness/tingling or other joint swelling. No known trauma. Past medical history significant for T2DM, CHF class II, hypomagnesemia, CAD, MERRITT, hypercalcemia, and gout. Related Data Home Medications ?Medication ?Instructions ?Recorded ?Confirmed aspirin 81 mg tablet,delayed 81 mg PO DAILY 06/02/19 10/03/24 release lancets 28 gauge (FreeStyle #400 ea 02/11/21 09/26/24 Lancets) pen needle, diabetic 32 gauge x #400 ea 03/25/21 09/26/24 (BD Ultra-Fine Amber Pen Needle) flash glucose scanning reader #1 ea 11/17/21 09/26/24 (FreeStyle Bahman 2 Chelsea) blood sugar diagnostic (Blood #400 ea 12/13/21 09/26/24 Glucose Test strips) flash glucose sensor (FreeStyle #2 ea 11/27/22 09/26/24 Bahman 2 Sensor kit) nitroglycerin 0.4 mg sublingual 0.4 mg sublingual Q5-15M PRN 01/26/23 10/03/24 tablet insulin aspart U-100 100 unit/mL See Rx Instructions .Route 05/29/23 10/03/24 (3 mL) subcutaneous pen (Novolog .COMPLEX #90 mL FlexPen U-100 Insulin aspart) apixaban 5 mg tablet (Eliquis) 5 mg PO BID #180 tabs 07/22/23 10/03/24 metoprolol tartrate 25 mg tablet 25 mg PO BID #180 tab-caps 07/28/23 10/03/24 insulin glargine 100 unit/mL (3 55 unit (0.55 mL) subcut QPM #60 mL 07/31/23 10/03/24 mL) subcutaneous pen (Lantus Solostar U-100 Insulin) empagliflozin 25 mg tablet See Rx Instructions .Route 08/04/23 10/03/24 (Jardiance) .COMPLEX #90 tabs rosuvastatin 40 mg tablet See Rx Instructions .Route 09/16/23 10/03/24 .COMPLEX #90 tabs cholecalciferol (vitamin D3) 1,250 1,250 mcg PO QWEEK #10 caps 09/28/23 10/03/24 mcg (50,000 unit) capsule Knee Brace - STABILIZING #1 ea 10/25/23 09/26/24 fenofibrate nanocrystallized 145 145 mg PO DAILY #90 tab-caps 02/24/24 10/03/24 mg tablet (Tricor) semaglutide 1 mg/dose (4 mg/3 mL) 1 mg (0.75 mL) subcut QWEEK #3 mL 04/14/24 10/03/24 subcutaneous pen injector mirabegron 50 mg tablet,extended 50 mg PO DAILY #90 tabs 04/28/24 10/03/24 release 24 hr (Myrbetriq) furosemide 40 mg tablet 40 mg PO DAILY PRN LEG SWELLING 05/03/24 10/03/24 #90 tabs levothyroxine 50 mcg tablet See Rx Instructions .Route 05/03/24 10/03/24 .COMPLEX #90 tabs nitroglycerin 0.4 mg sublingual 0.4 mg sublingual Q5M PRN chest 05/03/24 10/03/24 tablet pain #90 tabs losartan 25 mg tablet See Rx Instructions .Route 07/06/24 10/03/24 .COMPLEX #90 tabs prednisone 20 mg tablet See Taper PO DAILY #7 tabs 09/28/24 10/03/24 doxycycline hyclate 100 mg capsule 100 mg PO BID #14 caps 10/03/24 Previous Rx's ?Medication ?Instructions ?Recorded lancets 28 gauge (FreeStyle #400 ea 02/11/21 Lancets) pen needle, diabetic 32 gauge x #400 ea 03/25/2132 (BD Ultra-Fine Amber Pen Needle) flash glucose scanning reader #1 ea 11/17/21 (FreeStyle Bahman 2 Chelsea) blood sugar diagnostic (Blood #400 ea 12/13/21 Glucose Test strips) flash glucose sensor (FreeStyle #2 ea 11/27/22 Bahman 2 Sensor kit) insulin aspart U-100 100 unit/mL See Rx Instructions .Route 05/29/23 (3 mL) subcutaneous pen (Novolog .COMPLEX #90 mL FlexPen U-100 Insulin aspart) apixaban 5 mg tablet (Eliquis) 5 mg PO BID #180 tabs 07/22/23 metoprolol tartrate 25 mg tablet 25 mg PO BID #180 tab-caps 07/28/23 insulin glargine 100 unit/mL (3 55 unit (0.55 mL) subcut QPM #60 mL 07/31/23 mL) subcutaneous pen (Lantus Solostar U-100 Insulin) empagliflozin 25 mg tablet See Rx Instructions .Route 08/04/23 (Jardiance) .COMPLEX #90 tabs rosuvastatin 40 mg tablet See Rx Instructions .Route 09/16/23 .COMPLEX #90 tabs cholecalciferol (vitamin D3) 1,250 1,250 mcg PO QWEEK #10 caps 09/28/23 mcg (50,000 unit) capsule Knee Brace - STABILIZING #1 ea 10/25/23 fenofibrate nanocrystallized 145 145 mg PO DAILY #90 tab-caps 02/24/24 mg tablet (Tricor) semaglutide 1 mg/dose (4 mg/3 mL) 1 mg (0.75 mL) subcut QWEEK #3 mL 04/14/24 subcutaneous pen injector mirabegron 50 mg tablet,extended 50 mg PO DAILY #90 tabs 04/28/24 release 24 hr (Myrbetriq) furosemide 40 mg tablet 40 mg PO DAILY PRN LEG SWELLING 05/03/24 #90 tabs levothyroxine 50 mcg tablet See Rx Instructions .Route 05/03/24 .COMPLEX #90 tabs nitroglycerin 0.4 mg sublingual 0.4 mg sublingual Q5M PRN chest 05/03/24 tablet pain #90 tabs losartan 25 mg tablet See Rx Instructions .Route 07/06/24 .COMPLEX #90 tabs prednisone 20 mg tablet See Taper PO DAILY #7 tabs 09/28/24 doxycycline hyclate 100 mg capsule 100 mg PO BID #14 caps 10/03/24 Allergies Allergy/AdvReac Type Severity Reaction Status Date / Time No Known Allergies Allergy Verified 10/03/24 17:49 General Stated Complaint: Orthopedic CHRISTIANE: 4 Review of Systems Narrative: General Appearance: Normal. Minh is alert and oriented, no acute distress, well appearing Vital signs: Within normal limits. Extremities: Left third toe: significant redness and swelling at DIP with area of fluctuance on dorsal aspect, brisk cap refill, intact sensation. No other tenderness to palpation of foot. Skin: Warm and dry, no rash. Psychiatric: Normal. Course Vital Signs Vital signs: Vital Signs Temperature 36.4 C L 10/03/24 17:47 Pulse 59 L 10/03/24 17:47 Respiratory Rate 18 10/03/24 17:47 Blood Pressure 114/50 L 10/03/24 17:47 Pulse Oximetry 95 10/03/24 17:47 Temperature 36.4 C L 10/03/24 17:47 Temperature Source Oral 10/03/24 17:47 Pulse 59 L 10/03/24 17:47 Respiratory Rate 18 10/03/24 17:47 Blood Pressure 114/50 L 10/03/24 17:47 Pulse Oximetry 95 10/03/24 17:47 Oxygen Delivery Method Room Air 10/03/24 17:47 Oxygen Flow Rate 0 10/03/24 17:47 Procedure Abscess Drainage Patient Consented: Verbally Location of Exam: Lower extremity/left Indication: Abscess and Swelling. Local anesthetic: Lidocaine 2%, Amount of Local Anesthetic Used (mL): 1. Sterility: Sterile. Procedure Prep: Hand hygiene and Chlohexidine. Technique used, needle aspiration. Amount of fluid expressed(mL): 1. Irrigation: no irrigation Outcome: Sucessful. Medical Decision Making Initial Assessment: 73-year-old male with a history of gout, recently hospitalized and treated with steroids, presenting with significant redness and swelling in the left third toe. Differential Diagnosis: - Infection-cellulitis versus abscess: Considered due to significant redness and swelling in the toe. Ordered x-ray to rule out osteomyelitis. If confirmed, consider antibiotics. Patient very well-appearing, does not meet sepsis criteria. No red flags concerning for systemic infection or significant spread of infection beyond the toe. ED Course: - Ordered x-ray to evaluate the left third toe for possible infection; no acute abnormalities noted. Needle aspiration performed to area of fluctuance after extensive antisepsis with ChloraPrep and local anesthetic 2% lidocaine 1 cc. Patient tolerated procedure well, and moderate amount of thick white discharge was expressed, likely infected sebaceous cyst. As patient has diabetes and is at high risk of poor healing, will treat with antibiotics for localized cellulitis. First dose given in ED. Clinical Impression: - Abscess, probable infected sebaceous cyst - Cellulitis Disposition: - Antibiotics to cover for MRSA. 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 Reviewed discharge instructions with patient, including wound care, antibiotic use, importance of follow-up with podiatry, and red flags indicate need for return to emergency care. He is agreeable to plan MDM Components Evaluation: - Number of Differential Diagnoses or Management Options: Infection - Amount and Complexity of Data Reviewed: X-ray ordered - Risk of Complication and Morbidity or Mortality: Potential risk of infection requiring antibiotic treatment. Patient consented to the use of [facility] Imaging Data Radiologic Study: Radiologist's impression: Exam(s) XR FOOT LT COMPLETE EXAM: XR FOOT LT COMPLETE CLINICAL HISTORY: swelling and pain to DIP 3rd toe. TECHNIQUE: 2D digital imaging was performed. COMPARISON: Prior left foot images of 12/09/2022 FINDINGS: 3 views There is no evidence of acute fracture or diastasis of the Lisfranc joint. Great toe metatarsophalangeal joint appears unremarkable. There is an osteophytic density parallel to the lateral aspect of the head of the 2nd metatarsal, unchanged from images of 12/09/2022. Another small calcific density seen off of the lateral aspect of the base of the proximal phalanx of the 4th toe, also unchanged.. There is a new 2 millimeter calcific density adjacent to the lateral aspect of the head of the proximal phalanx of the 2nd toe. This was not evident on the 2022 images. There is, however, no obvious fracture at this level. With respect of the 3rd toe (apparent region of clinical interest), there is no evidence of fracture nor para-articular calcifications. No new erosions. No radiopaque foreign bodies. No radiographic evidence of osteomyelitis. IMPRESSION: 1. No acute osseous findings in the 3rd toe, as per request. 2. Other findings as described individually above. Quality:SDOH Health Related Social Needs: No Data to Display PFSH All Active Problems (Updated 10/03/24 @ 19:34 by Senait Rodas) Abscess (Acute) Gout due to renal impairment involving toe of right foot (Acute) Hypercalcemia (Acute) Hypomagnesemia (Acute) Arthritis of right knee (Acute) 40MG DEPO MEDROL 08/08/24 Localized osteoarthritis of left knee (Acute) 40mg DEPO MEDROL 08/08/24 Peripheral sensory neuropathy (Acute) Hammer toes, bilateral (Acute) Osteoarthritis of both knees (Acute) Laxity of knee joint (Acute) Sensation of knee instability (Acute) Unstable right knee (Acute) Cardiomyopathy (Acute) Toenail deformity (Acute) Coordination of complex care (Acute) Chart Review ID several Dx/Tx needing re-assessment or Hx requiring re-evaluation ([facility] dec?)(Bi-Pap ordered 12/2023, rec'd?)(Fe Infusion)(Vit D started? re-checked?)(++) Bradycardia (Acute) Noted for some time (1/2 dose trialed in 2021 before change in PCP)(chart reviewed, 05/30/23: dizziness incompletely evaluated 2' pt leaving [facility] AMA.. ACS ruled out 01/08-12/23.. Metoprolol decreased from 25mg BID per [facility], but maybe NOT implemented? ..and missed in FU! 05/30/23, sung Diuresis (Acute) actively diuresing, good results with q 2-3 days lasix (May 2023). Hx exacerbated CHF in Fall 2022 (AMA 2' intolerance diuretics, unable to get to bathroom; poor sleep 2' noise + uncomfortable bed)((Rx if HOSPTLZATN needed .. ik, 04/2023)) Pitting edema (Chronic) improved with diuretics (mar-apr 2023) .. cont q2 days.. [ ] cardio [facility] [place] review/eval for ortho surgery Low vitamin D level (Acute) Very low, 7.9! Essential hypertension (Chronic 01/31/13) CHF (congestive heart failure), NYHA class II (Chronic) EF 40% (12/2022), decreased from 2019 .. Clinical Dx ClassII CKD (chronic kidney disease) stage 3, GFR 30-59 ml/min (Chronic) History of kidney injury (Acute) GLENYS 2' furosemide, 04/17/23, but needed for HF/Edema.. Seeing Nephrology (quarterly) Decreased dorsalis pedis pulse (Acute) per Pod, 01/13/23 (2/) Absence of posterior tibial pulse (Acute) per Pod, 01/13/23 Coronary artery disease (Chronic) 3-vessel (LAD, LCX, RCA) Atrial fibrillation (Chronic) Apixaban 06/22/2019 Acute exacerbation of congestive heart failure (Acute) ED --> Hospitalized for diuresis, but no mosqueda & pt unable to sleep (left AMA) Cardiomegaly (Acute) CXR; ECHO 05/2019 [facility] [place]--LVEF 53%, +LVH (mild), no significant valvular disease; stable compared with 2017 study Anemia (Chronic) Hx of iron deficiency anemia (Acute) improved with iron infusion, but did not feel better (possible iron infusions exacerb HF? ~ Mar--Apr 2023)(doubtful based on no IVF, but possible) Fatigue (Acute) Worsened per pt, affecting ADL .. not just de-conditioning? Hyperlipidemia (Chronic 08/17/12) Osteoarthritis of right knee (Acute) DEPO MEDROL 08/14/22 Arthritis of both knees (Chronic) MERRITT (obstructive sleep apnea) (Chronic) Bi-PAP 07/23/19 Diabetes mellitus with neuropathy (Chronic) Reduced monofilament 06/24/2019 Goal A1C 7.5% or less Uncontrolled diabetes mellitus (Acute) Ortho Surgery OK < 8 (Dr. Ceja).. 10/2023 .. Goal </=7.5% Current use of insulin (Chronic) Acquired hypothyroidism (Chronic 10/28/16) High TSH, but WNL T4 (2021) .. re-checking Cervical disc disorder with myelopathy (Acute) right arm Overactive bladder (Chronic) Myrbetriq RE-started, 03/2023.. rptd improved @ 04/10/23 ov, ik .. Oxybutynin, discontinued 06/24/19 in favor of optimizing DMT2 management Unsteady gait (Acute) Dizziness incompletely evaluated 2' pt leaving [facility] AMA.. ACS ruled out 01/08-12/23.. Metoprolol decreased from 25mg BID per [facility], but maybe NOT implemented? ..and missed in FU! 05/30/23, ik Ataxia (Acute) Asymmetrical sensorineural hearing loss (Acute) Cognitive impairment (Acute) Forgetting, but using notes/print-outs .. ex(?)- helps .. Nail dystrophy (Acute) Onychomycosis (Acute) Tinea pedis (Acute) Blisters of multiple sites (Acute ~01/13/23) 01/13/23 [facility] note- Dr. Barker: Seropurulent Blisters, B/L legs.HE Metatarsalgia of left foot (Acute) Pain of right great toe (Acute) Medical History PAD (peripheral artery disease) Left, per OSVALDO (12/2022) Stopped smoking with greater than 20 pack year history Lung CT Screening, 07/16/20 Epiretinal membrane (~01/2023) right eye Slow heart rate Noted for some time (1/2 dose trialed in 2021 before change in PCP)(chart reviewed, 05/30/23: dizziness incompletely evaluated 2' pt leaving [facility] AMA.. ACS ruled out 01/08-12/23.. Metoprolol decreased from 25mg BID per [facility], but maybe NOT implemented? ..and missed in FU! 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 Chronic and recurrent low back pain L4-[address] scan in 1993, recurrent since then intermittently. Hypomagnesemia (06/22/14) Only 1.0 in the ER today. Pipe smoker Surgical History History of colonoscopy (~02/2023) with Mac S/P cardiac catheterization (05/31/19) 2019 History of cataract removal with insertion of prosthetic lens (11/23/14) History of umbilical hernia repair Status post appendectomy Status post coronary artery stent placement (09/26/16) One vessel for unstable angina Status post coronary artery bypass with autogenous graft, 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) 2017 Repair of umbilical hernia Fracture, Open Treatment ORIF-LEFT SYNDESMOSIS WITH TWO SCREWS Colonoscopy - IV Sedation Extraction of cataract 11/23/14; DR. GOINS; RIGHT EYE 12/07/14; DR. GOINS; LEFT EYE Appendectomy Family History Father Diabetes Dementia Neoplasm PANCREATIC Social History Smoking/Tobacco Use Status: Former Tobacco Use Quit Date: 01/02/17 Pack-years: 40 Tobacco: How many years used: 40 Quit status: has quit before Smoking risk assessment performed?: Yes Alcohol Intake: current Alcohol Intake frequency: a few times a month Alcohol type: beer and hard liquor Counseling given: Yes Counseling provided: reduce to 2 or less/day Details: 2-3 oz at a time Drug use: Never Substance use type: does not use Adopted: No Caregiver/Support person: No Foster care: No Household members: none and other Details: Cats Housing: house Number of Children: 3 number of grandchildren: 4 Communication Needs: None Do you need help understanding health information?: Rarely Pets and animals: Yes Pets and animals: cat(s) Do you think of yourself as: straight/heterosexual Current gender identity: male What is your relationship status?: How often do you talk on the phone with friends or family?: three or more times per week How often do you get together with friends or relatives?: twice per week Panel score (0-1 are the most socially isolated patients): 1 What type of physical activity do you participate in: other Details: Tredmill Duration: 45-60 minutes/day Frequency: 5-6 times per week Special isi needs: No Seatbelt use: always Helmet use: Yes Helmet use: always Drive intox 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 motor pool driver: No Working smoke detector in home: No Fire extinguisher in home: No Carbon monox detector in home: No Do you feel safe at home: Yes Do you feel safe in your relationship?: Yes
[2024-10-03] MEDS: Doxycycline Hyclate 100 MG, 2 CAPS/BTL PO (19:41)
== END 2024-10-03 19:46 | disposition home or self-care (01) ==
PROVIDERS: Emergency Provider Nurse Practitioner Family; PCP Student in an Organized Health Care Education/Training Program
DX: L02.612 Cutaneous abscess of left foot (principal); I25.10 Atherosclerotic heart disease of native coronary artery without angina pectoris; E11.9 Type 2 diabetes mellitus without complications; N18.30 Chronic kidney disease, stage 3 unspecified; Z79.4 Long term (current) use of insulin; Z79.84 Long term (current) use of oral hypoglycemic drugs; Z79.85 Long-term (current) use of injectable non-insulin antidiabetic drugs; Z79.01 Long term (current) use of anticoagulants; Z95.5 Presence of coronary angioplasty implant and graft; Z95.1 Presence of aortocoronary bypass graft
CPT/HCPCS: 10160; 99283; 73630; J2003

== ENCOUNTER → 2024-10-20 15:15 | Outpatient (BNVA) | payer MEDICARE, OTHER, SELFPAY | PROVIDERS: PCP Student in an Organized Health Care Education/Training Program; Visit Provider Nurse Practitioner Gerontology | DX: N32.81 Overactive bladder (principal); R39.9 Unspecified symptoms and signs involving the genitourinary system | CPT/HCPCS: 99213; 51798 ==

== ENCOUNTER 2024-10-24 02:09 | Outpatient (CLI) | payer MEDICARE, OTHER, SELFPAY ==
--- NOTE | 2024-10-24 10:21 | DI.RAD_ITS ---
Exam(s) XR FOOT LT COMPLETE EXAM: XR FOOT LT COMPLETE CLINICAL HISTORY: Left foot pain,m79.672. TECHNIQUE: 2D digital imaging was performed. Three views. COMPARISON: CR XR FOOT LT COMPLETE from 10/03/2024 FINDINGS: BONES: No acute fracture is present. No bony destructive lesion is seen. Small plantar calcaneal spur. JOINTS: No dislocation present. Hammertoe deformities. [id number] degenerative changes at the tarsal metatarsal joints. SOFT TISSUE: Vascular calcifications. IMPRESSION: Degenerative changes and small heel spur. DATA REPOSITORY: RADIATION DOSE DELIVERED:
== END 2024-10-24 02:29 ==
LOC: DI 02:09
PROVIDERS: PCP Student in an Organized Health Care Education/Training Program; Visit Provider Podiatrist
DX: M79.672 Pain in left foot (principal)
CPT/HCPCS: 73630

== ENCOUNTER 2024-11-02 13:50 | Outpatient (CLI) | payer MEDICARE, OTHER, SELFPAY ==
[2024-11-02 13:51] LABS: HCT 43.7 % (40.0-50.0); HGB 14.6 g/dL (13.5-17.5); MCH 32.7 pg (27.0-33.0); MCHC 33.4 % (32.0-36.0); MCV 98 fL (80-95); MPV 10.7 fL (8.0-11.0); Platelet Count 369 10^3/uL (130-400); RBC 4.47 10^6/uL (4.36-5.78); RDW 13.4 % (11.8-14.1); RDW-SD 47.7 fL; WBC 9.60 10^3/uL (4.4-10.8)
[2024-11-02 14:05] LABS: Hemoglobin A1C 7.3 % (<5.7)
[2024-11-02 14:10] LABS: Anion Gap 11.3 mmol/L (3-11); BUN 43 mg/dL (7-18); CO2 22.7 mmol/L (21.0-32.0); Calcium 9.4 mg/dL (8.5-10.1); Chloride 103 mmol/L (98-107); Estimated GFR 45.78 (mL/min/1.73m2); Glucose 190 mg/dL (74-106); Potassium 4.5 mmol/L (3.5-5.1); Sodium 137 mmol/L (136-145)
== END 2024-11-02 13:51 | disposition home or self-care (01) ==
LOC: LBO 13:51
PROVIDERS: PCP Student in an Organized Health Care Education/Training Program; Visit Provider Student in an Organized Health Care Education/Training Program
DX: Z01.818 Encounter for other preprocedural examination (principal); M17.12 Unilateral primary osteoarthritis, left knee; E11.65 Type 2 diabetes mellitus with hyperglycemia
CPT/HCPCS: 36415; 80048; 85027; 82985; 83036

== ENCOUNTER 2024-11-10 01:03 | Outpatient (CLI) | payer MEDICARE, OTHER, SELFPAY ==
--- NOTE | 2024-11-10 | DI.NM_ITS ---
APPROVED REPORT Exam: Pharmacologic Patient Location: Out-Patient Room/Bed: Stress Nurse: Pinky Gonzales RN Ordering Provider:JOYA PERRY, Contact Number: [phone] BMI: 42.18 Baseline Rhythm: Atrial Fibrillation, RBBB, LAFB Indications: Congestive heart failure, Medical History Medical History: MERRITT, CHF, hypothyroidism, osteoarthritis of bilat knees, HTN, CAD, CKD stg 3, afib, DM, HLD, venous insufficiency, gout Cardiac Medications: Losartan, nitro, insulin aspart, myrbetriq, apixaban, metoprolol tartrate, insulin glargine, jardiance, tricor, semaglutide, furosemide, levothyroxine Allergies: NKA Cardiac Risk Factors: Diabetes, HTN, HLD, PVC, CVD, former smoker Previous Cardiac Procedures: Bipass (per patient report) Pretest Chest Pain Characteristics: None Exercise History: Sedentary Physical Disabilities: Bilat knees Lung Sounds: Clear to auscultation Heart Sounds: Bradycardia, Irregular Stress Test Details Test: Pharmacologic stress testing performed using 0.4 mg of regadenoson per 5 mL given IV over 10 seconds. Reason for pharmacologic stress test: physical limitation. Nuclear Acquisition: Rest Tc-99m/Stress Tc-99m 1 day Rest Isotope: Tc-99m Sestamibi. Dose: 12.0 Date: 11/10/2024 Injection Time: 0930 Stress Isotope: Tc-99m Sestamibi. Dose: 36.0 Date: 11/10/2024 Injection Time: 1120 HR Resting HR Supine: 46 bpm Max Heart Rate (APMHR): 149 bpm Target HR (85% APMHR): 127 bpm Max HR Achieved: 89 bpm % of APMHR: 60 Recovery HR: 63 bpm BP Resting BP Supine: 128/64 mmHg Max BP: 134/70 mmHg Recovery BP: 128/60 mmHg ECG Resting ECG: Atrial Fibrillation, RBBB, LAFB Stress ECG: Atrial Fibrillation, RBBB, LAFB ST Change: Nondiagnostic low heart rate Recovery ECG: Atrial Fibrillation, RBBB, LAFB Recovery ST Change: Nondiagnostic low heart rate Clinical Stress Symptoms: 5/10 chest tightness Angina Score: Non-Limiting Rate Pressure Product: 20470 Stress ECG Conclusion 1. Resting electrocardiogram showed right bundle branch block, LAFB and atrial fibrillation 2. Patient underwent testing using pharmacologic stress with regadenoson 3. Peak heart rate achieved was 60% of maximal predicted for age 4. The electrocardiographic portion of the test was nondiagnostic 5. See MPI report Stress Test Summary STAGE HR BP SpO2 Symptoms NOTES Supine 46 128/64 95% 1 min post Lexiscan injection 41 130/64 97% 5/10 chest tightness 3 min post Lexiscan injection 89 134/70 99% All symtpom resolved 6 min post Lexiscan injection 63 128/60 96% Patient unable to use treadmill r/t bilat knees. Uses a cane a baseline. Patient c/o 5/10 chest tightness s/p soren. All symptoms resolved prior to patient proceeding to imaging ambulatory with cane in no apparent distress. MPI Conclusion Myocardial perfusion shows no evidence of ischemia or prior infarction Ejection fraction is 55% with normal wall motion
[2024-11-10] MEDS: Regadenoson 0.4 MG/5 ML SYR IVP (11:34)
== END 2024-11-10 01:23 ==
LOC: DI 01:03
PROVIDERS: PCP Student in an Organized Health Care Education/Training Program; Visit Provider Internal Medicine Cardiovascular Disease
DX: R07.9 Chest pain, unspecified (principal)
CPT/HCPCS: 78452; 93016; 93018; 93017; J2785

== ENCOUNTER → 2024-11-15 11:24 | Outpatient (BNVA) | payer MEDICARE, OTHER, SELFPAY | PROVIDERS: PCP Student in an Organized Health Care Education/Training Program; Referring Provider Student in an Organized Health Care Education/Training Program; Visit Provider Internal Medicine Cardiovascular Disease | DX: I42.9 Cardiomyopathy, unspecified (principal); I25.110 Atherosclerotic heart disease of native coronary artery with unstable angina pectoris; I48.21 Permanent atrial fibrillation; Z79.01 Long term (current) use of anticoagulants; E11.9 Type 2 diabetes mellitus without complications; E66.9 Obesity, unspecified | CPT/HCPCS: 99214 ==

== ENCOUNTER → 2024-11-21 09:13 | Outpatient (BNVA) | payer MEDICARE, OTHER, SELFPAY | PROVIDERS: PCP Student in an Organized Health Care Education/Training Program; Referring Provider Student in an Organized Health Care Education/Training Program; Visit Provider Podiatrist | DX: M72.2 Plantar fascial fibromatosis (principal); R60.0 Localized edema; I87.2 Venous insufficiency (chronic) (peripheral); I73.89 Other specified peripheral vascular diseases; M79.675 Pain in left toe(s); E11.42 Type 2 diabetes mellitus with diabetic polyneuropathy; L60.3 Nail dystrophy; B35.1 Tinea unguium; Z87.891 Personal history of nicotine dependence; Z79.4 Long term (current) use of insulin; M20.41 Other hammer toe(s) (acquired), right foot; M20.42 Other hammer toe(s) (acquired), left foot; R09.89 Other specified symptoms and signs involving the circulatory and respiratory systems; I83.93 Asymptomatic varicose veins of bilateral lower extremities; L65.9 Nonscarring hair loss, unspecified; R23.8 Other skin changes; L60.2 Onychogryphosis | CPT/HCPCS: 99213; 11721; 93922 ×2 ==

== ENCOUNTER 2024-12-13 15:08 | Observation (INO) | payer MEDICARE, OTHER, SELFPAY ==
[2024-12-13] VITALS (11 sets, daily range): BP systolic 118–157; BP diastolic 43–60; PULSE 44–62; RESP 16–19; TEMP 36–37.2; O2SAT 95–99; BMI 41.8
--- NOTE | 2024-12-13 07:10 | PDOC.DSDIS_ITS ---
Date of service: 12/13/24 Discharge Plan Disposition Patient Disposition: Home Condition: Good Discharge Details Reason For Visit: Left knee DJD Attending Provider: Rohan Ceja Primary Care Provider: Richard Jeffers Home Meds and New Rx's Prescriptions: New acetaminophen 500 mg tablet 1,000 mg PO Q8H PRN Qty: 90 0RF Rx Instructions: Take two tablets up to every 8 hours as needed for pain pantoprazole 40 mg tablet,delayed release (DR/EC) 40 mg PO DAILY Qty: 14 0RF Rx Instructions: Take one tablet once daily docusate sodium [Colace] 100 mg capsule 100 mg PO BID Qty: 28 0RF gabapentin 300 mg capsule 300 mg PO QHS Qty: 14 0RF Rx Instructions: Take one tablet at bedtime oxycodone 5 mg tablet 5 mg PO Q4H PRNQty: 18 0RF Rx Instructions: Take one tablet up to every 4 hours as needed for severe postoperative pain meloxicam 15 mg tablet 15 mg PO DAILY Qty: 30 1RF Rx Instructions: Take one tablet daily for pain and inflammation Continued nitroglycerin 0.4 mg tablet, sublingual 0.4 mg sublingual Q5-15M PRN Rx Instructions: do not exceed 3 doses per episode insulin aspart U-100 [Novolog FlexPen U-100 Insulin] 100 unit/mL (3 mL) insulin pen See Rx Instructions .ROUTE .COMPLEX Qty: 90 3RF Dose Instruction: INJECT 10 TO 30 UNITS BEFORE MEALS PER MEALTIME CORRECTION SCHEDULE Patient Comments: 12/13/24: pt unsure when he last took this, sometime yesterday F.S RN Rx Instructions: INJECT 10 TO 30 UNITS BEFORE MEALS PER MEALTIME CORRECTION SCHEDULE (DME) FreeStyle Bahman 2 [facility] [place] See Rx Instructions .ROUTE .MEDSUPPLY Qty: 1 0RF Rx Instructions: As directed (DME) Knee Brace - STABILIZING See Rx Instructions .Route .MEDSUPPLY Qty: 1 1RF Rx Instructions: One RT KNEE STABILIZING BRACE; mirabegron [Myrbetriq] 50 mg tablet extended release 24 hr 50 mg PO DAILY Qty: 90 3RF aspirin 81 mg tablet,delayed release (DR/EC) 81 mg PO DAILY Patient Comments: 06/02/19-replaces 325mg. daily dose. [facility] [place] discharge note. JOBY Mchugh (DME) lancets [FreeStyle Lancets] 28 gauge misc See Rx Instructions .ROUTE .MEDSUPPLY Qty: 400 3RF Rx Instructions: to test BS 4X daily for DM/E11.9 and to keep A1c at or under 7.0% (DME) pen needle, diabetic [BD Ultra-Fine Amber Pen Needle] 32 gauge x 5/32 needle 1 ea Miscellaneous QID Qty: 400 3RF Rx Instructions: E11.65 to administer insulin 4x/day (DME) Blood Glucose Test Strip See Rx Instructions .MEDSUPPLY Qty: 400 3RF Rx Instructions: As directed to check blood glucose four times daily. On insulin. Dispense covered brand. (DME) FreeStyle Bahman 2 Sensor Kit See Rx Instructions .ROUTE .MEDSUPPLY Qty: 2 11RF Rx Instructions: As directed Eliquis 5 mg tablet 5 mg PO BID Qty: 180 3RF Rx Instructions: PLEASE EXPLAIN WHAT HAPPENED TO 05/29/23 PRESCRIPTION? metoprolol tartrate 25 mg tablet 25 mg PO BID Qty: 180 3RF Rx Instructions: Heart Jardiance 25 mg tablet See Rx Instructions .ROUTE .COMPLEX Qty: 90 3RF Dose Instruction: TAKE 1 TABLET EVERY MORNING Rx Instructions: TAKE 1 TABLET EVERY MORNING rosuvastatin 40 mg tablet See Rx Instructions .ROUTE .COMPLEX Qty: 90 3RF Dose Instruction: TAKE 1 TABLET DAILY Rx Instructions: TAKE 1 TABLET DAILY cholecalciferol (vitamin D3) 1,250 mcg (50,000 unit) capsule 1,250 mcg PO QWEEK Qty: 10 0RF Rx Instructions: High dose Vit D, WEEKLY, per Nephro (unless already sent in?) fenofibrate nanocrystallized [Tricor] 145 mg tablet 145 mg PO DAILY Qty: 90 3RF semaglutide 1 mg/dose (4 mg/3 mL) pen injector 1 mg subcut QWEEK Qty: 3 5RF furosemide 40 mg tablet 40 mg PO DAILY PRN (Reason: LEG SWELLING) Qty: 90 3RF Patient Comments: 11/15/24 pt takes very 3 days RH Rx Instructions: Re-start, 04/14 x 3-5 days levothyroxine 50 mcg tablet See Rx Instructions .ROUTE .COMPLEX Qty: 90 3RF Dose Instruction: TAKE 1 TABLET DAILY FOR THYROID Rx Instructions: TAKE 1 TABLET DAILY FOR THYROID nitroglycerin 0.4 mg tablet, sublingual 0.4 mg SL Q5M PRN (Reason: chest pain) Qty: 90 3RF Rx Instructions: Take 1 at onset of chest pain, may repeat x2 q5 min if pain continues. losartan 25 mg tablet See Rx Instructions .ROUTE .COMPLEX Qty: 90 0RF Dose Instruction: TAKE 1 TABLET AT BEDTIME FOR DIABETES, AND TO PROTECT KIDNEYS Rx Instructions: TAKE 1 TABLET AT BEDTIME FOR DIABETES, AND TO PROTECT KIDNEYS ketoconazole 2 % cream 1 applic topical DAILY Qty: 120 6RF Rx Instructions: Apply to 1g to skin and toenails once daily insulin glargine [Lantus Solostar U-100 Insulin] 100 unit/mL (3 mL) insulin pen 65 unit Sub-Q QPM Rx Instructions: Or as directed for dx: E11.65 Discharge Instructions Additional Instructions: Total Knee Discharge Instructions Activity: The most important activity is to walk and to work on gentle motion (both flexion and extension). You should try to take short walks a few times a day. It is important that when resting you work on keeping the knee straight. Avoid putting a pillow behind the knee as this will encourage flexion. Work on range of motion exercises as provided by Physical Therapy. - Start outpatient physical therapy within 2 weeks. - You should wear the CAR hose on both legs for 2 weeks. You may remove these at night. You may also use any compression sock in place of the CAR hose. - Utilize [employer] to review exercises, see videos on exercises and obtain basic information pertaining to your surgery and your recovery. Dressing: Remove the Bruno wrap by 2 days after your surgery and put on the CAR stocking given to you from the hospital. Keep the surgical dressing (underneath the BRUNO wrap) in place for at least one week. After the first week it may be r emoved and replaced with light gauze and tape or nothing. The wound and dressing may get wet after 3 days but avoid soaking the dressing or otherwise it will need to be changed. Many people prefer covering the dressing with cling wrap (saran wrap) to minimize it from getting soaked. If it gets wet, just pat dry. If it starts to peel off then it will need to be changed. Medications: - You should take Tylenol and anti-inflammatory Meloxicam as your primary pain control medications. If the Meloxicam is too expensive or not covered, please call the office for another alternative (Advil/Ibuprofen or Naproxen/Aleve) - You have been prescribed a stronger pain medication Oxycodone for breakthrough pain, take as needed as prescribed. - You have also been prescribed a stomach acid reduction agent Pantoprozole to help reduce stomach acid and reflux. - You have been prescribed Gabapentin to take at night for restlessness and nerve pain. - You will resume taking your normal anticoagulation - Apixaban and Aspirin tomorrow on 12/14/24 - for DVT prevention unless instructed otherwise. - If you have constipation you should take Colace (which has been prescribed) or Miralax (which is available [id number]). It takes most people 3-4 days to have a bowel movement. Follow-up: 2 weeks If you have any acute concerns or questions, please do not hesitate to contact the office at [phone]. You may contact Dr. Ceja with any questions after hours through the hospital at [phone] or on his cell phone at [phone]. Stand Alone Forms: Anesthesia Discharge Inst., Anes.Nerve Block Instructions, Aurelio Davis ([facility]) Referrals: Rohan Ceja MD [ [facility] STAFF PHYSICIAN, Orthopaedic Surgical] - 12/26/24 1:45 pm Equipment/Supplies: Walker Activity:: Elevate Remove Dressings/Wound Care:: Do Not Remove Shower/Bathe:: Cover Diet:: As Tolerated Discharge Orders Discharge Orders: Discharge Order (Routine); Ordered 12/13/24 Ordered By: Gina Vega
--- NOTE | 2024-12-13 08:08 | ANES.PREOP_ITS ---
General Info Date of Service Date Performed: 12/13/24 Height: 5 ft 10 in Weight: 132.449 kg Body Mass Index (BMI): 41.8 Surgical Procedure: Operation Date: 12/13/24 11:10 Proposed Procedure Side Surgeon p Knee Total Arthroplasty, Cementless CR- Likely Patella Left Rohan Ceja MD Meds Allergies and Home Medications Allergies Allergy/AdvReac Type Severity Reaction Status Date / Time No Known Allergies Allergy Verified 12/13/24 08:26 Home Medication ?Medication ?Instructions ?Recorded aspirin 81 mg tablet,delayed 81 mg PO DAILY 06/02/19 release lancets 28 gauge (FreeStyle #400 ea 02/11/21 Lancets) pen needle, diabetic 32 gauge x #400 ea 03/25/21 (BD Ultra-Fine Amber Pen Needle) flash glucose scanning reader #1 ea 11/17/21 (FreeStyle Bahman 2 [place]) blood sugar diagnostic (Blood #400 ea 12/13/21 Glucose Test strips) flash glucose sensor (FreeStyle #2 ea 11/27/22 Bahman 2 Sensor kit) nitroglycerin 0.4 mg sublingual 0.4 mg sublingual Q5-1 5M PRN 01/26/23 tablet insulin aspart U-100 100 unit/mL See Rx Instructions . Route 05/29/23 (3 mL) subcutaneous pen (Novolog .COMPLEX #90 mL FlexPen U-100 Insulin aspart) apixaban 5 mg tablet (Eliquis) 5 mg PO BID #180 tabs 0 07/22/23 metoprolol tartrate 25 mg tablet 25 mg PO BID #180 tab -caps 07/28/23 empagliflozin 25 mg tablet See Rx Instructions .Route 08/04/23 (Jardiance) .COMPLEX #90 tabs rosuvastatin 40 mg tablet See Rx Instructions .Route 0 09/16/23 .COMPLEX #90 tabs cholecalciferol (vitamin D3) 1,250 1,250 mcg PO QWEEK #10 caps 09/28/23 mcg (50,000 unit) capsule Knee Brace - STABILIZING #1 ea 10/25/23 fenofibrate nanocrystallized 145 145 mg PO DAILY #90 t ab-caps 02/24/24 mg tablet (Tricor) semaglutide 1 mg/dose (4 mg/3 mL) 1 mg (0.75 mL) subcu t QWEEK #3 mL 04/14/24 subcutaneous pen injector mirabegron 50 mg tablet,extended 50 mg PO DAILY #90 ta bs 04/28/24 release 24 hr (Myrbetriq) furosemide 40 mg tablet 40 mg PO DAILY PRN LEG SWELL ING 05/03/24 #90 tabs levothyroxine 50 mcg tablet See Rx Instructions .Route 05/03/24 .COMPLEX #90 tabs nitroglycerin 0.4 mg sublingual 0.4 mg sublingual Q5M PRN chest 05/03/24 tablet pain #90 tabs losartan 25 mg tablet See Rx Instructions .Route 0 07/06/24 .COMPLEX #90 tabs ketoconazole 2 % topical cream 1 applic topical DAILY #120 grams 11/28/24 insulin glargine 100 unit/mL (3 65 unit subcut QPM 11/25 mL) subcutaneous pen (Lantus Solostar U-100 Insulin) acetaminophen 500 mg tablet 1,000 mg (2 x 500 mg) PO Q 8H PRN 12/13/24 pain #90 tabs celecoxib 200 mg capsule (Celebrex) 200 mg PO BID PRN #60 caps 12/13/24 docusate sodium 100 mg capsule 100 mg PO BID #28 caps 12/13/24 (Colace) gabapentin 300 mg capsule 300 mg PO QHS #14 caps 12/13 oxycodone 5 mg tablet 5 mg PO Q4H PRN #18 tabs 04/27 pantoprazole 40 mg tablet,delayed 40 mg PO DAILY #14 t abs 12/13/24 release Current Visit Medications: Current Medications Generic Name Dose Route Start Last Admin Trade Name Freq PRN Reason Stop Dose Admin Acetaminophen 1,000 mg 12/13/24 06:00 Acetaminophen 500 Mg Tab PO 12/13/24 23:59 PREOP ZEE Celecoxib 400 mg 12/13/24 06:00 Celecoxib 200 Mg Cap PO 12/13/24 23:59 PREOP ZEE Gabapentin 300 mg 12/13/24 06:00 Gabapentin 300 Mg Cap PO 12/13/24 23:59 PREOP ZEE Hydromorphone HCl 0.5 mg 12/13/24 07:05 Hydromorphone 2 Mg/Ml Syr IVP 01/12/25 07:04 Q2H PRN PRN Ringer's Solution 1,000 mls @ 80 mls/hr 12/13/24 06:00 IV 12/13/24 23:59 INFUSION ZEE Tranexamic Acid/Sodium Chloride 1,000 mg in 100 mls @ 600 mls/hr 12/13/24 06:00 IVPB 12/13/24 23:59 PREOP ZEE Cefazolin Sodium/Dextrose 1 gm in 50 mls @ 100 mls/hr 12/13/24 08:00 Ancef Duplex IVPB 12/14/24 00:29 Q8H ZEE Cefazolin Sodium 3,000 mg/ 100 mls @ 200 mls/hr 12/13/24 07:40 Sodium Chloride IVPB 01/12/25 07:39 PREOP ZEE IV Miscellaneous Supplies 1 each 12/13/24 06:00 Iv Access IV 12/13/24 23:59 DIRECTED ZEE Oxycodone HCl 0 mg 12/13/24 07:05 Oxycodone 5 Mg Tab PO 01/12/25 07:04 Q3H PRN PRN Pain Sodium Chloride 0 ml 12/13/24 06:00 Normal Saline Flush 10 Ml Syr IV 12/13/24 23:59 PRN PRN Sodium Chloride 0 ml 12/13/24 06:00 Normal Saline 10 Ml Vial IJ 12/13/24 23:59 DIRECTED PRN Sterile Water 0 ml 12/13/24 06:00 Water,Injection,Sterile 10 Ml Vial IJ 12/13/24 23:59 DIRECTED PRN Tranexamic Acid 1,300 mg 12/13/24 07:05 Tranexamic Acid 650 Mg Tab PO 01/12/25 07:04 ONCE PRN postoperative PFSH Active Problems Active Problems: Problem Status Onset Code Edema Acute R60.9 Venous insufficiency Acute I87.2 Pain in left foot Acute M79.672 Plantar fasciitis of left foot Acute M72.2 Gout due to renal impairment involving toe of right foot Acute M10.371 Hypercalcemia Acute E83.52 Arthritis of right knee Acute M17.11 Localized osteoarthritis of left knee Acute M17.12 Peripheral sensory neuropathy Acute G60.8 Hammer toes, bilateral Acute M20.41, M20.42 Osteoarthritis of both knees Acute M17.0 Laxity of knee joint Acute M23.8X9 Sensation of knee instability Acute R29.898 Unstable right knee Acute M25.361 Cardiomyopathy Acute I42.9 Toenail deformity Acute L60.8 Coordination of complex care Acute Z71.89 Bradycardia Acute R00.1 Diuresis Acute R35.89 Pitting edema Chronic R60.9 Low vitamin D level Acute R79.89 Essential hypertension Chronic 13 I10 CHF (congestive heart failure), NYHA class II Chronic I50.9 CKD (chronic kidney disease) stage 3, GFR 30-59 ml/min Chronic N18.30 History of kidney injury Acute Z87.828 Decreased dorsalis pedis pulse Acute R09.89 Absence of posterior tibial pulse Acute R09.89 Coronary artery disease Chronic I25.10 Atrial fibrillation Chronic I48.91 Acute exacerbation of congestive heart failure Acute I50.9 Cardiomegaly Acute I51.7 Anemia Chronic D64.9 Hx of iron deficiency anemia Acute Z86.2 Fatigue Acute R53.83 Hyperlipidemia Chronic 1613 E78.5 Osteoarthritis of right knee Acute M17.11 Arthritis of both knees Chronic M19.90 MERRITT (obstructive sleep apnea) Chronic G47.33 Diabetes mellitus with neuropathy Chronic E11.40 Uncontrolled diabetes mellitus Acute E11.65 Current use of insulin Chronic Z79.4 Acquired hypothyroidism Chronic 10/28/16 E03.9 Cervical disc disorder with myelopathy Acute M50.00 Overactive bladder Chronic N32.81 Unsteady gait Acute R26.81 Ataxia Acute R27.0 Asymmetrical sensorineural hearing loss Acute H90.3 Cognitive impairment Acute R41.89 Nail dystrophy Acute L60.3 Onychomycosis Acute B35.1 Tinea pedis Acute B35.3 Blisters of multiple sites Acute ~01/13/23 R23.8 Metatarsalgia of left foot Acute M77.42 Pain of right great toe Acute M79.674 Medical History Medical History PAD (peripheral artery disease) Left, per OSVALDO (12/2022) Stopped smoking with greater than 20 pack year history Lung CT Screening, 07/16/20 Tubular adenoma of colon (~02/2023) Epiretinal membrane (~01/2023) right eye Abrasion of skin of right lower leg Slow heart rate Noted for some time (1/2 dose trialed in 2021 before change in PCP)(chart reviewed, 05/30/23: dizziness incompletely evaluated 2' pt leaving [facility] AMA.. ACS ruled out 01/08-12/23.. Metoprolol decreased from 25mg BID per [facility], but maybe NOT implemented? ..and missed in FU! 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 Chronic and recurrent low back pain L4-[address] scan in 1993, recurrent since then intermittently. Hypomagnesemia (06/22/14) Only 1.0 in the ER today. Pipe smoker Surgical History Surgical History History of colonoscopy (~02/2023) with Mac S/P cardiac catheterization (05/31/19) 2019 History of cataract removal with insertion of prosthetic lens (11/23/14) History of umbilical hernia repair Status post appendectomy Status post coronary artery stent placement (09/26/16) One vessel for unstable angina Status post coronary artery bypass with autogenous graft, 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) 2016 Repair of umbilical hernia Fracture, Open Treatment ORIF-LEFT SYNDESMOSIS WITH TWO SCREWS Colonoscopy - IV Sedation Extraction of cataract 11/23/14; DR. GOINS; RIGHT EYE 12/07/14; DR. GOINS; LEFT EYE Appendectomy Tobacco Smoking/Tobacco Use Status: Former Tobacco Use Passive smoking exposure: No Alcohol Alcohol Intake: current Alcohol intake frequency: a few times a month Alcohol type: beer and hard liquor Counseling provided: reduce to 2 or less/day Details: 2-3 oz at a time Substance Use Substance use: Never Substance use type: does not use Vital Signs and Lab Results Vital Signs Comment Vital Signs Comment:: Temp Pulse 36.6 C 61 12/13/24 08:14 12/13/24 08:14 Imaging and Studies Imaging and Studies Study information below may be from another EMR and interpreted by another provider. Please see original notes in EMR for more complete details. EKG Summary: Conclusion Bradycardia with irregular rate...V-rate 42- 59, mean < 60 Prolonged NV interval...NV >220, V-rate 50- 90 RBBB and LAFB...QRSd >120mS, axis(-40,240) 10/18/21 Stress Test Summary: 11/2024:MPI Conclusion Myocardial perfusion shows no evidence of ischemia or prior infarction Ejection fraction is 55% with normal wall motion 2020: Stress ECG Conclusion 1. The resting electrocardiogram showed right bundle branch block, left anterior fascicular block 2. Patient exercised on the Hermann protocol and completed a workload of 5.15 METS, stopping due to dyspnea 3. Blunted heart rate and blood pressure response to exercise. The patient achieved 75% of predicted heart rate for age 4. Electrocardiographically the test was nondiagnostic due to inadequate heart rate 5. Atrial premature beats were reported De La O Treadmill Score is 4.1 which is Moderate risk. 07/17/20 MPI Conclusion The ejection fraction was 41% with stress. There is hypokinesis of the apex. There is a moderate sized fixed perfusion defect encompassing the entire apex. 07/23/20 Echocardiogram Summary: 09/2024: Poor images, EF not documented, mild-mod MR. EF 40%, mild to mod MR, mild NV 12/11/22 Pulmonary Function Summary: IMPRESSION: Mild defusion defect, which is normal when corrected to alveolar volume in combination with very low ERV, it may be related to chest wall restriction from underlying obesity and hypoventilation. Clinical correlation recommended. 08/10/13 Anesthesia Assessment and Plan Anesthesia History Personal History: No History of Anesthesia Complications Family History: No Family History of Anesthesia Complications Exercise Tolerance Exercise Tolerance: Metabolic Equivalents<4 Pertinent Negatives Pertinent Negatives: No Symptoms of GERD and No History of CVA/TIA Cardiac & Pulmonary Exam Cardiac Exam: Other Pulmonary Exam: Clear Bilateral Breath Sounds Implantable Cardiac Device Does patient have a Pacemaker or an ICD?: No Airway Exam Known Difficult Airway: No Mallampati Class: 2 Mouth Opening: Normal (> 3cm) Thyromental Distance: Less than 3 cm Neck Range of Motion: Full ROM Neck Circumference: Thick Teeth Condition: Normal Dentition ASA Classification ASA Score: ASA 3 Emergency Case?: No NPO Status NPO Status: NPO Clears >2 hours, Solids >8 hours Anesthesia Plan Resuscitation Status: Full Code Anesthesia Technique: Spinal Anesthesia Airway Planned: Natural Airway Pain Management: Surgeon and patient request nerve block Monitors Used: Standard Monitors Preoperative Comments:: Cardiology cleeared recently:Plan The patient is stable from the cardiac standpoint for orthopedic surgery. If it is scheduled, he should hold his Eliquis 48 hours prior and resume when cleared by orthopedics. I would not recommend any additional preoperative cardiac testing Routine clinic follow-up here in a year. Pt. states takes occasional NTG, most recently a few days ago but not convinced it was his heart. He was working around house, felt a chest twinge sat and took NTG with resolution, denies any associated s/s. Despite patient stating does not recall when he took his medication, he is sure that he stopped his elaquis on 12/08, discussed spinal hematoma and again he said it has been > than 3 days. He also took 50% lantus dose last night. He states he was instructed to do so. This morning he is 191 finger stick.
[2024-12-13] MEDS: Acetaminophen 500 MG TAB 1000 MG PO (08:48)
[2024-12-13] MEDS: Celecoxib 200 MG CAP 400 MG PO (08:48)
[2024-12-13] MEDS: Gabapentin 300 MG CAP PO (08:49)
[2024-12-13] MEDS: Lactated Ringers 1,000 ML 80 ML IV (09:16)
[2024-12-13] MEDS: ceFAZolin 3,000 MG in Normal Saline 100 ML 200 MG IVPB (10:22)
--- NOTE | 2024-12-13 10:26 | W.PM.OP ---
Operative Note Operative Note PRE-OP DIAGNOSIS: Left Knee Osteoarthritis POST-OP DIAGNOSIS: same PROCEDURE: Left Total Knee Replacement SURGEON: Rohan Ceja BEHAVIOR INTERVENTIONIST: Gina Vega ANESTHESIA TYPE: Spinal Refer to Anesthesia Record PATHOLOGY: none sent TOURNIQUET TIME: 0 COMPLICATIONS: None Patient was transported to: PACU Patient's condition: stable Implants: 1. Depuy Attune Cementless Cruciate Retaining Femoral Component, Size 7 2. Depuy Attune Cementless Fixed Bearing Tibial Component, Size 6 3. Depuy Attune 7x7mm CR/FB Poly 4. Depuy Attune Patellar Component, Size 35mm Indications: I have seen Minh in clinic for symptoms of knee arthritis, confirmed with radiographic findings. He has exhausted nonoperative methods and was having significant limitations in daily function and desired better function and less pain. I discussed the technical details of a knee replacement. I explained the risks of the procedure to include, but not limited to, bleeding, infection, pain, stiffness, fracture, damage to nerves and vessels, damage to muscles and tendons, loosening, need for repeat procedure, blood clot and cardiopulmonary demise. Despite these risks, Minh elected to proceed. Findings: There was significant signs of arthritis throughout the knee involving the entire medial compartment as well as the patella with exposed bone. Procedure Description: Minh was greeted in the preoperative holding area where the correct side was identified and marked. The consent was reviewed with the patient and signed. The history and physical was updated. All questions were answered. Preoperative medications were administered: Acetaminophen 1000mg, Celebrex 400mg, and Gabapentin 300mg. An adductor canal block was then administered by the anesthesia team in the DSU. Minh was taken back to the operating room. A spinal anesthestic was then administered. The patient was placed into the supine position on the operating room table. Posts were placed for positioning during the procedure. All bony prominences were well padded. Prophylactic antibiotics in the form of Cefazolin were administered. 1g of Tranxemic Acid was given intravenously within 30 minutes of incision. The left leg was then prepped with Chloraprep and draped in a standard fashion with impervious stockinette. A second prep with Chloraprep was performed prior to application of Iodine impregnated skin protection. A timeout to confirm correct identity, side and site, procedure, allergies, anesthesia, and medical concerns was performed. With the knee in some flexion, a midline incision was made overlying the knee. Full thickness skin flaps were raised once the extensor mechanism was encountered. These were raised medially and laterally. Any bleeding was controlled with electrocautery. Once the extensor mechanism was fully exposed, a medial parapatellar arthrotomy was performed in a flexed position. All bleeding from the arthrotomy and the geniculate arteries was coagulated. A medial subperiosteal peel was performed with electrocautery to the midcoronal plane. The fat pad was removed while keeping the patellar tendon protected. The anterior distal femur synovium was removed for later visualization. The ACL and PCL were resected and the anterior horn of the lateral meniscus was transected. The knee was then flexed with the patella everted. Large osteophytes from the tibia were removed. Large osteophytes from the femur were removed. Using a step drill, and based on preoperative templating, the femoral canal was entered. This was done with a step drill without any difficulty. The intramedullary distal femoral cut guide was inserted, set to a 5 degree valgus cut and 9mm cut thickness. The distal femoral cut guide was then held in position and pinned. With the soft tissues protected, the distal cut was performed. This was passed over a few times to ensure a planar cut. I then turned attention to the tibia. The extramedullary guide was placed onto the leg. The distal aspect was slid medial to adjust for position of center of ankle and stay in line with shaft of the tibia. Approximately 5 degrees of posterior slope was kept in the proximal cutting guide. The center of the guide was aligned with the PCL. The stylus was used to assess cut thickness. The medial side, most involved side, was set for a 6mm cut. This was then held in position and pinned into place with 2 additional pins and a cross pin for stability. The medial and lateral collateral ligaments were protected and the cut was performed. With this completed, it was assessed and noted to be of appropriate dimensions. The guide was removed. A spacer block was inserted and the knee was brought into extension. The 6mm spacer block provided full extension, without hyperextension and with stability of both the medial and lateral collateral ligaments was assessed. The pins from the femur and the tibia were then removed. The distal femur was then sized. The anterior stylus was placed onto the lateral ridge of the anterior femur. This indicated a size 7 femur. The external rotation of the guide was adjusted to 0 degrees to match the epicondylar axis, perpendicular to [place]?s line. The 4-in-1 cutting guide was the placed. The posterior medial femur cut was evaluated and appeared of good thickness. The spacer block was inserted underneath the cutting guide and stability was confirmed in 90 degrees of flexion. An kelton wing was used to confirm appropriate position of the anterior cut to avoid notching. This cutting guide was ensured to be flush on the cut surface and then pinned into place with headed pins. While protecting the soft tissues, quad tendon, and collateral ligaments, the anterior and posterior cuts were performed with a saw. The central two pins were removed and the posterior and anterior chamfers were cut next. The notch-cutting guide was placed. This was pinned to lateralize the femoral component as much as possible while keeping it flush on the cut surface. This was then pinned into position. A reciprocating saw was used to make the notch cut. A rasp smoothed the cut surfaces. The medial and lateral menisci were removed. A trial femoral component was then inserted, impacted down to the cut surfaces, and the lug holes were drilled. A provisional trial tibial component was placed and the knee was brought through range of motion. The polyethylene was trialed until there was good flexion and extension with excellent stability to the medial and lateral collaterals. The patella was tracking without thumbs. A size 7mm polyethylene component provided the best range of motion and stability with less than 2mm gapping with medial and lateral stress and full extension without significant hyperextension. The tibial cut surface was fully exposed. The tibia was then sized as a 6. The tibia had been previously marked during trialing to correspond to the center of the tibial component to help with rotation. The trial was aligned to this gee, approximately rotated to the medial 1/3rd of the tibial tubercle. The trial was pinned into place. The tibia was prepared with a reamer and a keel punch and lug holes. The knee was then brought into extension and the patella was measured as 27mm. Using the patellar clamp and cut guide, this was resected to a flat surface with at least 13mm of thickness remaining. The size 35mm patella fit the best. This was oriented and then clamped into position. The lugs were drilled. The trial components were removed. The final components were opened on the back table. The periosteal and capsular tissues, especially posteriorly, around the knee were then systematically injected with a periarticular cocktail consisting of 246mg of Ropivacaine, 0.5mg of Epinephrine, 0.08mg of Clonidine, and 30mg of Ketorolac, diluted to 100cc. On the back table, with the implants opened. The cement was mixed. One batch of high viscosity cement was prepared with vacuum assistance. After the cement was ready a small amount was placed on the cut surface of the patella and the patellar button was clamped into position and held. The cementless knee components were placed. Starting with the tibial component, the tibia was subluxed anteriorly and the lug holes of the component were lined up. The tibia was then impacted with an impactor and mallet until the tibial component was in contact with the tibia. Then, the femoral component was inserted. The lug holes were aligned and the component was impacted into position. The final polyethylene component was inserted. The knee was irrigated with Surgiphor Betadine solution. This was allowed to sit in the knee for 3 minutes and then it was irrigated out with saline. After the cement had finally cured, approximately 15min, the clamp was removed from the patella and the knee was taken through range of motion. The patella was tracking with a no-thumbs technique. A complete synovectomy was performed around the periphery of the patella. The capsule was then reapproximated with a No. 1 Vicryl at multiple locations. The capsule was finally closed with a No. 2 Stratafix, barbed suture. Deep tissues were then reapproximated with 0 Vicryl and 2-0 Vicryl. The skin was closed with a running 3-0 Monocryl in a subcuticular fashion. This was reinforced with skin glue. A Mepilex silver dressing was applied along with a [id number] FARIDA wrap. A CryoCuff was applied. Minh was transferred to the hospital bed without difficulty an suffering no apparent complication. Minh has a good prognosis. Physical therapy will start today and without restrictions, weight-bearing as tolerated. Apixaban 5mg BID will be used for DVT prophylaxis. Date of Procedure: 12/13/24
[2024-12-13] MEDS: TRANEXAMIC ACID/SOD. CHL. 1,000 MG/100 ML BAG 600 MG IVPB (10:33)
--- NOTE | 2024-12-13 10:51 | W.ANESNERVE ---
Nerve Block Single Injection Procedure Date and Time Date Performed: 12/13/24 Procedure Start: 09:38 Location Where Procedure Performed Procedure Location: Day Surgery Unit Reason Performed: Postoperative Analgesia Requesting Provider: Rohan Ceja Timeout Performed Timeout Performed: Yes Monitoring Used ECG, Blood Pressure, SpO2 and See EMR for corresponding vital signs Sterility Sterility: Hand Hygiene, Surgical Cap, Surgical Mask, Sterile Gloves and Chlorhexidine Sedation Given During Procedure Sedation Given (Indicate Dose Given): No Sedation given Patient Mental Status Patient Mental Status: Awake Nerve Block 1st Nerve Block: Laterality: Left Block Type: Adductor Canal Ultrasound Image Saved?: Yes Needle / Catheter Used: 120mm SonoPlex II Local Anesthetic Bolus (Indicate Dose Given): Lidocaine used for local infiltration of skin, Injected in 3-5ml increments after negative blood aspiration, Bupivacaine 0.25% Dose:: 10ml and Exparel Dose:: 10ml Additives (Indicate Dose Given): None Ultrasound: Sterile probe cover and gel used Nerve Stimulator: Supplement to Ultrasound use and No twitch or parasthesia noted < 0.5 mA Paresthesia: None Procedure Tolerated: No Complications and Patient tolerated well Procedure Outcome: Successful Procedure Comment: Pt. sensitive as needle went through tissue layers. Performed By: Oscar Lozano
[2024-12-13] MEDS: fentaNYL 100 MCG/2 ML VIAL IVP ×2 (12:35→12:42)
--- NOTE | 2024-12-13 13:30 | W.ANESPOSTOP ---
Postoperative Evaluation Date, Time and Location Date Performed: 12/13/24 Time Performed: 13:30 Patient Location: Day Surgery Unit Vital Signs Most Recent Imported Vital Signs: Most Recent Vital Signs Temp Pulse Resp BP Pulse Ox 36 C L 44 L 16 136/52 L 98 12/13/24 12:56 12/13/24 12:56 12/13/24 12:56 12/13/24 12:56 12/13/24 12:56 Pain Score Most Recent Pain Score: Most Recent Pain Score Pain Level 5 12/13/24 12:56 Assessment Mental Status: Awake (Alert & Oriented to Patient Baseline) Airway and Respiratory Function: Patent airway with normal (patient baseline) respiratory exam Cardiovascular Function: Hemodynamically Stable Hydration Status: Adequately Hydrated Nausea & Vomiting: No Nausea or Vomiting Pain: Pain is tolerable per patient Peripheral Nerve Block: Regional nerve block not resolved at time of post operative discharge
[2024-12-13] MEDS: Tranexamic Acid 650 MG TAB 1300 MG PO (14:58)
--- NOTE | 2024-12-13 15:51 | PT.INIE ---
PT Notes Visit Reasons: Left knee DJD Physical Therapy Day Surgery Initial Evaluation Date: 12/18/2024 Referring Doctor: Dr. Ceja/Gina Vega NP PT Orders: PT CONSULT: Status post Ortho surgery Precautions: WBAT left LE with assistive device Patient Profile/Admitting Diagnosis: Patient is a 74-year-old male presenting status post elective left TKA under spinal anesthesia by Dr. Ceja on 12/13/2024. Postop uncomplicated PMHX:Edema (Acute) Venous insufficiency (Acute) Pain in left foot (Acute) Plantar fasciitis of left foot (Acute) Abscess (Acute) Gout due to renal impairment involving toe of right foot (Acute) Hypercalcemia (Acute) Arthritis of right knee (Acute) 40MG DEPO MEDROL 08/08/24 Localized osteoarthritis of left knee (Acute) 40mg DEPO MEDROL 08/08/24Peripheral sensory neuropathy (Acute) Hammer toes, bilateral (Acute) Osteoarthritis of both knees (Acute) Laxity of knee joint (Acute) Sensation of knee instability (Acute) Unstable right knee (Acute) Cardiomyopathy (Acute) Toenail deformity (Acute) Coordination of complex care (Acute) Chart Review ID several Dx/Tx needing re-assessment or Hx requiring re-evaluation ([facility] apr?)(Bi-Pap ordered 12/2023, rec'd?)(Fe Infusion)(Vit D started? re-checked?)(++)Bradycardia (Acute) Noted for some time (1/2 dose trialed in 2021 before change in PCP)(chart reviewed, 05/30/23: dizziness incompletely evaluated 2' pt leaving [facility] AMA.. ACS ruled out 01/08-12/23.. Metoprolol decreased from 25mg BID per [facility], but maybe NOT implemented? ..and missed in FU! 05/30/23, ikDiuresis (Acute) actively diuresing, good results with q 2-3 days lasix (May 2023). Hx exacerbated CHF in Fall 2022 (AMA 2' intolerance diuretics, unable to get to bathroom; poor sleep 2' noise + uncomfortable bed)((Rx if HOSPTLZATN needed .. ik, 04/2023))Pitting edema (Chronic) improved with diuretics (mar-apr 2023) .. cont q2 days.. [ ] cardio [facility] review/eval for ortho surgeryLow vitamin D level (Acute) Very low, 7.9!Essential hypertension (Chronic 01/31/13) CHF (congestive heart failure), NYHA class II (Chronic) EF 40% (12/2022), decreased from 2019 .. Clinical Dx ClassIICKD (chronic kidney disease) stage 3, GFR 30-59 ml/min (Chronic) History of kidney injury (Acute) GLENYS 2' furosemide, 04/17/23, but needed for HF/Edema.. Seeing Nephrology (quarterly)Decreased dorsalis pedis pulse (Acute) per Pod, 01/13/23 (2/4)Absence of posterior tibial pulse (Acute) per Pod, 01/13/23Coronary artery disease (Chronic) 3-vessel (LAD, LCX, RCA)Atrial fibrillation (Chronic) Apixaban 06/22/2019Acute exacerbation of congestive heart failure (Acute) ED --> Hospitalized for diuresis, but no mosqueda & pt unable to sleep (left AMA)Cardiomegaly (Acute) CXR; ECHO 05/2019 [facility]--LVEF 53%, +LVH (mild), no significant valvular disease; stable compared with 2017 studyAnemia (Chronic) Hx of iron deficiency anemia (Acute) improved with iron infusion, but did not feel better (possible iron infusions exacerb HF? ~ Mar--Apr 2023)(doubtful based on no IVF, but possible)Fatigue (Acute) Worsened per pt, affecting ADL .. not just de-conditioning?Hyperlipidemia (Chronic 08/17/12) Osteoarthritis of right knee (Acute) DEPO MEDROL 08/14/22Arthritis of both knees (Chronic) MERRITT (obstructive sleep apnea) (Chronic) Bi-PAP 07/23/19Diabetes mellitus with neuropathy (Chronic) Reduced monofilament 06/24/2019 Goal A1C 7.5% or lessUncontrolled diabetes mellitus (Acute) Ortho Surgery OK < 8 (Dr. Ceja).. 10/2023 .. Goal </=7.5%Current use of insulin (Chronic) Acquired hypothyroidism (Chronic 10/28/16) High TSH, but WNL T4 (2021) .. re-checkingCervical disc disorder with myelopathy (Acute) right arm Overactive bladder (Chronic) Myrbetriq RE-started, 03/2023.. rptd improved @ 04/10/23 ov, ik .. Oxybutynin, discontinued 06/24/19 in favor of optimizing DMT2 managementUnsteady gait (Acute) Dizziness incompletely evaluated 2' pt leaving [facility] AMA.. ACS ruled out 01/08-12/23.. Metoprolol decreased from 25mg BID per [facility], but maybe NOT implemented? ..and missed in FU! 05/30/23, ikAtaxia (Acute) Asymmetrical sensorineural hearing loss (Acute) Cognitive impairment (Acute) Forgetting, but using notes/print-outs .. ex(?)- helps ..Nail dystrophy (Acute) Onychomycosis (Acute) Tinea pedis (Acute) Blisters of multiple sites (Acute ~01/13/23) 01/13/23 [facility] note- Dr. Barker: Seropurulent Blisters, B/L legs.HEMetatarsalgia of left foot (Acute) Pain of right great toe (Acute) Medical History PAD (peripheral artery disease) Left, per [facility]VAL[facility] (12/2022)Stopped smoking with greater than 20 pack year history Lung CT Screening, 07/16/20Tubular adenoma of colon (~02/2023) Epiretinal membrane (~01/2023) right eyeAbrasion of skin of right lower leg Slow heart rate Noted for some time (1/2 dose trialed in 2021 before change in PCP)(chart reviewed, 05/30/23: dizziness incompletely evaluated 2' pt leaving [facility] AMA.. ACS ruled out 01/08-12/23.. Metoprolol decreased from 25mg BID per [facility], but maybe NOT implemented? ..and missed in FU! 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 testicles, testosterone RX Depressive disorder marital issues Bursitis of shoulder, right, adhesive (04/06/15) H/O renal calculi Umbilical hernia Recurrent x 2, repaired x 3.Chronic and recurrent low back pain L4-[address] scan in 1993, recurrent since then intermittently.Hypomagnesemia (06/22/14) Only 1.0 in the ER today.Pipe smoker Surgical History History of colonoscopy (~02/2023) with MacS/P cardiac catheterization (05/31/19) 2020History of cataract removal with insertion of prosthetic lens (11/23/14) History of umbilical hernia repair Status post appendectomy Status post coronary artery stent placement (09/26/16) One vessel for unstable angina Status post coronary artery bypass with autogenous graft, 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) 2017Repair of umbilical hernia Fracture, Open Treatment ORIF-LEFT SYNDESMOSIS WITH TWO SCREWSColonoscopy - IV Sedation Extraction of cataract 11/23/14; DR. GOINS; RIGHT EYE 12/07/14; DR. GOINS; LEFT EYEAppendectomy Social History/Home Situation: Patient resides alone single-family home 2 4 inch steps to enter with rail. Patient has independent with ADLs and ambulation without assistive device, driving, home management Equipment Owned/DME: Patient fitted for FWW, tub bench for showers Subjective: Patient stating he does not have anyone to stay with him overnight. Nurse aware Objective: [] General Observation: Male semireclined on stretcher with Cryo/Cuff to left knee, sister present in room Mental Status: Alert and oriented x 4, inconsistent historian, cues to attend to task easily distracted but able to follow instructions agreeable to participate in evaluation. Pain: 5/10 left knee ROM: [] BUE: WFL Right Lower Extremity: WFL Left Lower Extremity: Hip and ankle WFL; knee 0-96 degrees Strength: [] BUE: 5/5 Right Lower Extremity: Hip flexion: 3+/5; hip abduction: 3/5; hip extension: 3/5; knee extension: 4/5; knee flexion: 3/5 ankle DF: 4/5 ; ankle PF: 4/5 Left Lower Extremity:Hip flexion: 3 -/5; hip abduction: 3/5; hip extension: 3 -/5; knee extension: 3/5; knee flexion: 2+/5 ankle DF: 3/5 ; ankle PF: 3/5; patient demonstrates strong quad set able to perform straight leg raise in shortened range without lag Sensation: Intact to touch and pain left lower extremity Bed Mobility/Transfers: [] Supine to sit supervision Sit to supine min assist for left lower extremity Sit to stand supervision with cues to push up from surface Stand to sit supervision with cues to reach back with hands Bed to chair supervision with cues for safe approach with FWW Gait: Ambulate with FWW SBA 150 feet demonstrating reduced step length left, impaired left knee flexion during swing phase on left, wide base of support Stairs: 3 4 steps? and 2 6 steps with rails contact-guard assist with continuous cues for sequencing step to pattern x 2 trials Balance: [] Static Sitting: Normal Dynamic Sitting: Good Static Standing: Good Dynamic Standing: Fair plus Special Tests: [] Mobility Limitations Standardized Measure [] [facility] AM-PAC 6 clicks Basic Mobility Inpatient Short Form: [] Raw Score: 23 CMS Score: 11.20% Informed Consent/Education: Patient instructed in purpose of PT consult. Treatment: 20186/therapeutic exercise -packet containing TKA exercise protocol has been given to patient. Education and training on initial set of 10 reps of exercises that can be done at home have been completed with patient. Assessment: Patient is a 74-year-old male presents with clinical signs and symptoms consistent with current/admitting diagnoses that have resulted to mobility limitations, gait instability, generalized weakness, and impairment of motor control as demonstrated by the following impairment level findings: 1. Decreased strength to left knee major muscle groups 2. Impaired standing balance 3. Limitation of joint range of motion in left knee 4. Pain left knee 5. Impaired functional activity tolerance Impairments are contributing to the following functional limitations: 1. Inability to safely ambulate without assistive device 2. Increase completion time for mobility ADL performance 3. Increased fall risk 4. Difficulty performing stairs without assistance safely Patient is assessed as a low complexity based on the following: History: 74-year-old male with impairment level findings, functional limitations, and past medical history as indicated above Examination: Demonstrable impairment in strength, balance, and mobility level with underlying impairments and functional limitations as documented above Presentation: Stable Decision Making: Low Goals: 1. Modified independent transfers with FWW 2. Modified independent ambulation with FWW 300 feet 3. Supervision 3 steps with railing to safely enter and exit home 4. Independent home exercise program Plan of Care/Treatment Plan: PT evaluation and 1-2 treatment session only for functional mobility training using recommended AD and for HEP instruction. DISCHARGE RECOMMENDATIONS: Home with HEP and outpatient PT as scheduled when medically appropriate TREATMENT CODE/TIME: 12995, [id number] Thank you for the opportunity to participate in the care of this patient. Cherelle Bob, PT [facility]
[2024-12-13] MEDS: Insulin Aspart 300 UNITS/3 ML PEN SC (17:07)
[2024-12-13] MEDS: ceFAZolin 1 GM/50 ML BAG IVPB (17:08)
--- NOTE | 2024-12-13 18:55 | W.PC.ACHO ---
Registration Status: ADM AMISH Primary Language: Preferred Language: Persian Medical / Surgical History (Last Reviewed 12/13/24 @ 08:28 by Karolina Person RN) Abnormal nuclear stress test Abrasion of skin of right lower leg Acute medial meniscus tear of right knee Bursitis of shoulder, right, adhesive (04/06/15) Chronic and recurrent low back pain Depressive disorder Epiretinal membrane (~01/2023) Erectile dysfunction of organic origin (08/07/15) H/O renal calculi History of nicotine dependence Hypomagnesemia (06/22/14) Kidney stone Left ankle sprain Low back pain Maisonneuve fracture of left fibula (05/07/16) Obesity PAD (peripheral artery disease) Pipe smoker SARS-CoV-2 positive (~04/2021) Sensorineural hearing loss, bilateral (02/15/15) Slow heart rate Stopped smoking with greater than 20 pack year history Tendinitis of right shoulder Tubular adenoma of colon (~02/2023) Umbilical hernia (Last Reviewed 12/13/24 @ 08:28 by Karolina Person RN) Appendectomy Colonoscopy - IV Sedation Extraction of cataract Fracture, Open Treatment History of cataract removal with insertion of prosthetic lens (11/23/14) History of colonoscopy (~02/2023) History of umbilical hernia repair Repair of umbilical hernia S/P cardiac catheterization (05/31/19) Status post appendectomy Status post coronary artery bypass with autogenous graft, 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) Status post coronary artery stent placement (09/26/16) Most Recent Vital Signs Temperature 36.4 C L 12/13/24 15:12 Temperature Source Skin 12/13/24 09:17 Pulse 56 L 12/13/24 15:12 Pulse Rhythm Regular 12/13/24 15:12 Respiratory Rate 17 12/13/24 15:12 Respiratory Effort Normal 12/13/24 15:12 Respiratory Depth Shallow 12/13/24 15:12 Respiratory Pattern Normal 12/13/24 15:12 Blood Pressure 152/58 H 12/13/24 15:12 Blood Pressure Mean 90 12/13/24 09:17 Blood Pressure Position Sitting 12/13/24 09:17 Pulse Oximetry 97 12/13/24 15:12 Oxygen Delivery Method Room Air 12/13/24 15:12 Oxygen Flow Rate 0 12/13/24 15:12 Pain Level 0 08/12/25 15:12 Comment 09:17 Handover to screen printing machine loader unloader to Addie Kwong CRNA & Fawad YAÑEZ in the room. Procedure explained to pt by DISPENSING OPERATOR who expressed understanding. Pt prepped for LEFT Adductor Canal nerve block. Left leg placed in frog?s leg position, supported with a pillow by DISPENSING OPERATOR. 09:36 Pre-op VSS taken. Pt denies ringing in ears, metallic taste in mouth, pain. 09:40 Time out performed by Fawad YAÑEZ with Varghese FLORES as witness. Local injection/lidocaine administered to block site by [facility] local anesthesia/Bupivocaine administered to block site by Fawad YAÑEZ under the direction of Lucero Lozano CRNA. 09:42 Left Adductor Canal Block completed by Marta Barker CRNA. 12/13/24 09:17 Allergies No Known Allergies Allergy (Verified 12/13/24 08:26) Active Medications Generic Name Dose Route Start Last Admin Trade Name Freq PRN Reason Stop Dose Admin Acetaminophen 1,000 mg 12/13/24 06:00 12/13/24 08:48 Acetaminophen 500 Mg Tab PO 12/13/24 23:59 1,000 mg PREOP ZEE Administration Celecoxib 400 mg 12/13/24 06:00 12/13/24 08:48 Celecoxib 200 Mg Cap PO 12/13/24 23:59 400 mg PREOP ZEE Administration Fentanyl 0 mcg 12/13/24 10:50 12/13/24 12:42 Fentanyl 100 Mcg/2 Ml Vial IVP 01/12/25 10:49 50 mcg DIRECTED PRN Administration Gabapentin 300 mg 12/13/24 06:00 12/13/24 08:49 Gabapentin 300 Mg Cap PO 12/13/24 23:59 300 mg PREOP ZEE Administration Ringer's Solution 1,000 mls @ 80 mls/hr 12/13/24 06:00 12/13/24 13:31 IV 12/13/24 23:59 Infused INFUSION ZEE Infusion Tranexamic Acid/Sodium Chloride 1,000 mg in 100 mls @ 600 mls/hr 12/13/24 06:00 12/13/24 10:43 IVPB 12/13/24 23:59 Infused PREOP ZEE Infusion Cefazolin Sodium/Dextrose 1 gm in 50 mls @ 100 mls/hr 12/13/24 18:00 12/13/24 17:46 Ancef Duplex IVPB 12/14/24 10:29 Infused Q8H ZEE Infusion Cefazolin Sodium 3,000 mg/ 100 mls @ 200 mls/hr 12/13/24 07:40 12/13/24 10:33 Sodium Chloride IVPB 01/12/25 07:39 Infused PREOP ZEE Infusion Insulin Aspart 0 units 12/13/24 17:00 12/13/24 17:07 Insulin Aspart 300 Units/3 Ml Pen SC 01/12/25 16:59 18 units 0800,1200,1700 ZEE Administration Protocol Tranexamic Acid 1,300 mg 12/13/24 07:05 12/13/24 14:58 Tranexamic Acid 650 Mg Tab PO 01/12/25 07:04 1,300 mg ONCE PRN Administration postoperative IV IV Catheter Type [Right Hand] Peripheral IV IV Catheter Gauge [Right Hand] 20 Diet Orders Category Date Time Status Diabetes Consistent CHO [DIET] Nutrition 12/13/24 Lunch Active [id number] Documentation Fingerstick Glucose Start: 12/13/24 08:28 Freq: Status: Complete Protocol: Activity Type Activity Date Activity User E-sign Co-sign Detail Recorded Client Recorded Date Recorded By Document 12/13/24 12:04 BKG DAEMON(5) NVT-BG05 12/13/24 12:04 BKG DAEMON(6) Fingerstick Glucose Start: 12/13/24 14:37 Freq: AC & HS Status: Active Protocol: Activity Type Activity Date Activity User E-sign Co-sign Detail Recorded Client Recorded Date Recorded By Document 12/13/24 16:32 BKG DAEMON(7) NVT-BG05 12/13/24 16:36 BKG DAEMON(8) Intake and Output - 24 Hour Total 11/25/24 10:06 thru 12/13/24 17:46 Intake Total 1560 Output Total 100 Balance 1460 Weight 127.006 kg Intake: IV 960 Oral 600 Output: Emesis 0 Estimated Blood Loss 100 Other: Urine Appearance Clear Emesis Description None Falls Risk Assessment History of Falls No History 12/13/24 15:12 Contributing Factors Impairments 12/13/24 15:12 Ambulatory Aids Uses ambulatory device 12/13/24 15:12 Tubes/Lines W/no contributing factors 12/13/24 15:12 Gait Evaluation W/no contributing factors 12/13/24 15:12 Cognition No cognitive impairment 12/13/24 15:12 Fall Total Score 38 12/13/24 15:12 Level of Risk Moderate Risk 12/13/24 15:12 v v v v v v v v v Sending and/or Receiving Nurses: Please use comment section below to note any information pertinent to the patient hand-off not included above. Information / Comments: Called Day Surgery for report at [id number]. All questions addressed. Report received from: Karolina [facility] RN
--- NOTE | 2024-12-13 18:57 | RESPIRATORY ---
Pt has an auto bipap max 20, min 12, ps 4 resmed with [employer]. Unit is at bedside. Pt does not use humidification or oxygen. S/M nasal mask
[2024-12-13] MEDS: HYDROmorphone 2 MG/ML SYR 0.5 MG IVP (19:46)
[2024-12-13] MEDS: Metoprolol 12.5 MG TAB 25 MG PO (19:47)
[2024-12-13] MEDS: Apixaban 5 MG TAB PO (19:47)
[2024-12-13] MEDS: Insulin Glargine 300 UNITS/3 ML PEN 65 UNITS SC (19:50)
[2024-12-13] MEDS: oxyCODONE 5 MG TAB PO (23:22)
[2024-12-14] MEDS: ceFAZolin 1 GM/50 ML BAG IVPB ×2 (02:12→09:31)
[2024-12-14 02:16] VITALS: BP 127/90; PULSE 49; RESP 17; TEMP 36; O2SAT 96
[2024-12-14] MEDS: Levothyroxine 50 MCG TAB PO (05:48)
[2024-12-14] MEDS: HYDROmorphone 2 MG/ML SYR 0.5 MG IVP (05:48)
--- NOTE | 2024-12-14 07:22 | W.PM.DS.N ---
Date of service: 12/14/24 Time of Service: 07:22 Discharge Plan Disposition Patient Disposition: Home Condition: Good Discharge Details Reason For Visit: Left knee DJD Admit Date/Time: 12/13/24 15:08 Admit Provider: Rohan Ceja Attending Provider: Rohan Ceja Primary Care Provider: Richard Jeffers [facility] Hospital Course: Patient was admitted to the medical/surgical floor following the procedure. The surgery was tolerated well without any notable medical, surgical, or anesthetic complications. Mobilization began postoperatively. He was voiding spontaneously. Vitals were stable. Physical therapy worked with the patient and was cleared for discharge home. No acute medical issues. Pain was controlled on oral regimen. Home Meds and New Rx's Prescriptions: New acetaminophen 500 mg tablet 1,000 mg PO Q8H PRN Qty: 90 0RF Rx Instructions: Take two tablets up to every 8 hours as needed for pain pantoprazole 40 mg tablet,delayed release (DR/EC) 40 mg PO DAILY Qty: 14 0RF Rx Instructions: Take one tablet once daily docusate sodium [Colace] 100 mg capsule 100 mg PO BID Qty: 28 0RF gabapentin 300 mg capsule 300 mg PO QHS Qty: 14 0RF Rx Instructions: Take one tablet at bedtime oxycodone 5 mg tablet 5 mg PO Q4H PRNQty: 18 0RF Rx Instructions: Take one tablet up to every 4 hours as needed for severe postoperative pain meloxicam 15 mg tablet 15 mg PO DAILY Qty: 30 1RF Rx Instructions: Take one tablet daily for pain and inflammation Continued insulin aspart U-100 [Novolog FlexPen U-100 Insulin] 100 unit/mL (3 mL) insulin pen See Rx Instructions .ROUTE .COMPLEX Qty: 90 3RF Dose Instruction: INJECT 10 TO 30 UNITS BEFORE MEALS PER MEALTIME CORRECTION SCHEDULE Patient Comments: 12/13/24: pt unsure when he last took this, sometime yesterday FKirillS RN Rx Instructions: INJECT 10 TO 30 UNITS BEFORE MEALS PER MEALTIME CORRECTION SCHEDULE (DME) FreeStyle Bahman 2 [place] Misc See Rx Instructions .ROUTE .MEDSUPPLY Qty: 1 0RF Rx Instructions: As directed (DME) Knee Brace - STABILIZING See Rx Instructions .Route .MEDSUPPLY Qty: 1 1RF Rx Instructions: One RT KNEE STABILIZING BRACE; mirabegron [Myrbetriq] 50 mg tablet extended release 24 hr 50 mg PO DAILY Qty: 90 3RF aspirin 81 mg tablet,delayed release (DR/EC) 81 mg PO DAILY Patient Comments: 06/02/19-replaces 325mg. daily dose. [facility] [place]. JOBY Mchugh (DME) lancets [FreeStyle Lancets] 28 gauge misc See Rx Instructions .ROUTE .MEDSUPPLY Qty: 400 3RF Rx Instructions: to test BS 4X daily for DM/E11.9 and to keep A1c at or under 7.0% (DME) pen needle, diabetic [BD Ultra-Fine Amber Pen Needle] 32 gauge x 32 needle 1 ea Miscellaneous QID Qty: 400 3RF Rx Instructions: E11.65 to administer insulin 4x/day (DME) Blood Glucose Test Strip See Rx Instructions .MEDSUPPLY Qty: 400 3RF Rx Instructions: As directed to check blood glucose four times daily. On insulin. Dispense covered brand. (DME) FreeStyle Bahman 2 Sensor Kit See Rx Instructions .ROUTE .MEDSUPPLY Qty: 2 11RF Rx Instructions: As directed Eliquis 5 mg tablet 5 mg PO BID Qty: 180 3RF Rx Instructions: PLEASE EXPLAIN WHAT HAPPENED TO 05/29/23 PRESCRIPTION? metoprolol tartrate 25 mg tablet 25 mg PO BID Qty: 180 3RF Rx Instructions: Heart Jardiance 25 mg tablet See Rx Instructions .ROUTE .COMPLEX Qty: 90 3RF Dose Instruction: TAKE 1 TABLET EVERY MORNING Rx Instructions: TAKE 1 TABLET EVERY MORNING rosuvastatin 40 mg tablet See Rx Instructions .ROUTE .COMPLEX Qty: 90 3RF Dose Instruction: TAKE 1 TABLET DAILY Rx Instructions: TAKE 1 TABLET DAILY cholecalciferol (vitamin D3) 1,250 mcg (50,000 unit) capsule 1,250 mcg PO QWEEK Qty: 10 0RF Rx Instructions: High dose Vit D, WEEKLY, per Nephro (unless already sent in?) fenofibrate nanocrystallized [Tricor] 145 mg tablet 145 mg PO DAILY Qty: 90 3RF semaglutide 1 mg/dose (4 mg/3 mL) pen injector 1 mg subcut QWEEK Qty: 3 5RF furosemide 40 mg tablet 40 mg PO DAILY PRN (Reason: LEG SWELLING) Qty: 90 3RF Patient Comments: 11/15/24 pt takes very 3 days RH Rx Instructions: Re-start, 04/14 x 3-5 days levothyroxine 50 mcg tablet See Rx Instructions .ROUTE .COMPLEX Qty: 90 3RF Dose Instruction: TAKE 1 TABLET DAILY FOR THYROID Rx Instructions: TAKE 1 TABLET DAILY FOR THYROID nitroglycerin 0.4 mg tablet, sublingual 0.4 mg SL Q5M PRN (Reason: chest pain) Qty: 90 3RF Rx Instructions: Take 1 at onset of chest pain, may repeat x2 q5 min if pain continues. losartan 25 mg tablet See Rx Instructions .ROUTE .COMPLEX Qty: 90 0RF Dose Instruction: TAKE 1 TABLET AT BEDTIME FOR DIABETES, AND TO PROTECT KIDNEYS Rx Instructions: TAKE 1 TABLET AT BEDTIME FOR DIABETES, AND TO PROTECT KIDNEYS ketoconazole 2 % cream 1 applic topical DAILY Qty: 120 6RF Rx Instructions: Apply to 1g to skin and toenails once daily insulin glargine [Lantus Solostar U-100 Insulin] 100 unit/mL (3 mL) insulin pen 65 unit Sub-Q QPM Rx Instructions: Or as directed for dx: E11.65 Discharge Instructions Additional Instructions: Total Knee Discharge Instructions Activity: The most important activity is to walk and to work on gentle motion (both flexion and extension). You should try to take short walks a few times a day. It is important that when resting you work on keeping the knee straight. Avoid putting a pillow behind the knee as this will encourage flexion. Work on range of motion exercises as provided by Physical Therapy. - Start outpatient physical therapy within 2 weeks. - You should wear the CAR hose on both legs for 2 weeks. You may remove these at night. You may also use any compression sock in place of the CAR hose. - Utilize [employer] to review exercises, see videos on exercises and obtain basic information pertaining to your surgery and your recovery. Dressing: Remove the Bruno wrap by 2 days after your surgery and put on the CAR stocking given to you from the hospital. Keep the surgical dressing (underneath the BRUNO wrap) in place for at least one week. After the first week it may be removed and replaced with light gauze and tape or nothing. The wound and dressing may get wet after 3 days but avoid soaking the dressing or otherwise it will need to be changed. Many people prefer covering the dressing with cling wrap (saran wrap) to minimize it from getting soaked. If it gets wet, just pat dry. If it starts to peel off then it will need to be changed. Medications: - You should take Tylenol and anti-inflammatory Meloxicam as your primary pain control medications. If the Meloxicam is too expensive or not covered, please call the office for another alternative (Advil/Ibuprofen or Naproxen/Aleve) - You have been prescribed a stronger pain medication Oxycodone for breakthrough pain, take as needed as prescribed. - You have also been prescribed a stomach acid reduction agent Pantoprozole to help reduce stomach acid and reflux. - You have been prescribed Gabapentin to take at night for restlessness and nerve pain. - You will resume taking your normal anticoagulation - Apixaban and Aspirin tomorrow on 12/14/24 - for DVT prevention unless instructed otherwise. - If you have constipation you should take Colace (which has been prescribed) or Miralax (which is available [id number]). It takes most people 3-4 days to have a bowel movement. Follow-up: 2 weeks If you have any acute concerns or questions, please do not hesitate to contact the office at [phone]. You may contact Dr. Ceja with any questions after hours through the hospital at [phone] or on his cell phone at [phone]. Stand Alone Forms: Anesthesia Discharge InstBakari Roy.Nerve Block Instructions, Aurelio Davis (DSU) Referrals: Rohan Ceja MD [ [facility] STAFF PHYSICIAN, Orthopaedic Surgical] - 12/26/24 1:45 pm Activity:: Activity as Tolerated Equipment/Supplies:: Walker Diet:: As Tolerated Discharge Orders Discharge Orders: Discharge Order (Routine); Ordered 12/13/24 Ordered By: Gina Vega DS: Summary Time Spent with Patient providing and/or coordinating discharge services: Less than 30 minutes Status at Discharge Functional status at discharge: uses cane/walker Overall status at discharge: patient is progressing back to baseline Mental Status: mental status grossly normal Speech and Movement: speech and movement normal Mood: congruent mood Affect: normal affect Quality:SDOH Health Related Social Needs: Health related social needs lonely/isolated Health related social needs details Pt states he does not need assistance. Exam Narrative Exam Narrative: Sitting up in the chair. No acute distress. Alert and orient x 3. Evaluation of the left knee shows a clean dry and intact dressing. He is able to actively flex and extend the left ankle. Sensation tact light touch in the deep and superficial peroneal nerve and tibial nerve. Psych Mental Status: mental status grossly normal Speech and Movement: speech and movement normal Mood: congruent mood Affect: normal affect DS: Data Vitals/I&O Vitals and I&O: Vital Signs Temperature 96.8 F L 12/13/24 13:26 Temperature Source Skin 12/13/24 09:17 Pulse 47 L 12/13/24 13:26 Pulse Rhythm Irregular 12/13/24 08:14 Respiratory Rate 16 12/13/24 13:26 Respiratory Depth Normal 12/13/24 08:14 Blood Pressure 130/43 L 12/13/24 13:26 Blood Pressure Mean 90 12/13/24 09:17 Blood Pressure Position Sitting 12/13/24 09:17 Pulse Oximetry 97 12/13/24 13:26 Oxygen Delivery Method Room Air 12/13/24 13:26 Oxygen Flow Rate 0 12/13/24 09:17 Pain Level 5 12/13/24 13:26 Comment 09:17 Handover to research intern to Addie Kwong CRNA & Fawad YAÑEZ in the room. Procedure explained to pt by SANDRA who expressed understanding. Pt prepped for LEFT Adductor Canal nerve block. Left leg placed in frog?s leg position, supported with a pillow by SANDRA. 09:36 Pre-op VSS taken. Pt denies ringing in ears, metallic taste in mouth, pain. 09:40 Time out performed by Fawad YAÑEZ with Varghese FLORES as witness. Local injection/lidocaine administered to block site by SCRNA local anesthesia/Bupivocaine administered to block site by Fawad YAÑEZ under the direction of Lucero Lozano CRNA. 09:42 Left Adductor Canal Block completed by Marta Barker CRNA. 12/13/24 09:17 Intake & Output 12/12/24 12/13/24 12/13/24 23:59 11:59 23:59 Intake Total 700 / 1450 750 / 1450 Output Total 100 / 100 0 / 100 Balance 600 / 1350 750 / 1350 Weight 292 lb 5.327 oz Intake: IV 700 / 850 150 / 850 Oral 600 / 600 Output: Emesis 0 / 0 Estimated Blood Loss 100 / 100 Other: Emesis Description None None PFSH All Active Problems History of total left knee replacement (Acute 12/13/24) Edema (Acute) Venous insufficiency (Acute) Pain in left foot (Acute) Plantar fasciitis of left foot (Acute) Gout due to renal impairment involving toe of right foot (Acute) Hypercalcemia (Acute) Arthritis of right knee (Acute) 40MG DEPO MEDROL 08/08/24 Peripheral sensory neuropathy (Acute) Hammer toes, bilateral (Acute) Osteoarthritis of both knees (Acute) Laxity of knee joint (Acute) Sensation of knee instability (Acute) Unstable right knee (Acute) Cardiomyopathy (Acute) Toenail deformity (Acute) Coordination of complex care (Acute) Chart Review ID several Dx/Tx needing re-assessment or Hx requiring re-evaluation ([facility]/BB apr?)(Bi-Pap ordered 12/2023, rec'd?)(Fe Infusion)(Vit D started? re-checked?)(++) Bradycardia (Acute) Noted for some time (1/2 dose trialed in 2021 before change in PCP)(chart reviewed, 05/30/23: dizziness incompletely evaluated 2' pt leaving [facility] AMA.. ACS ruled out 01/08-12/23.. Metoprolol decreased from 25mg BID per [facility], but maybe NOT implemented? ..and missed in FU! 05/30/23, ik Diuresis (Acute) actively diuresing, good results with q 2-3 days lasix (May 2023). Hx exacerbated CHF in Fall 2022 (AMA 2' intolerance diuretics, unable to get to bathroom; poor sleep 2' noise + uncomfortable bed)((Rx if HOSPTLZATN needed .. ik, 04/2023)) Pitting edema (Chronic) improved with diuretics (mar-apr 2023) .. cont q2 days.. [ ] cardio [facility] [place]/eval for ortho surgery Low vitamin D level (Acute) Very low, 7.9! Essential hypertension (Chronic 01/31/13) CHF (congestive heart failure), NYHA class II (Chronic) EF 40% (12/2022), decreased from 2020 .. Clinical Dx ClassII CKD (chronic kidney disease) stage 3, GFR 30-59 ml/min (Chronic) History of kidney injury (Acute) GLENYS 2' furosemide, 04/17/23, but needed for HF/Edema.. Seeing Nephrology (quarterly) Decreased dorsalis pedis pulse (Acute) per Pod, 01/13/23 (2/4) Absence of posterior tibial pulse (Acute) per Pod, 01/13/23 Coronary artery disease (Chronic) 3-vessel (LAD, LCX, RCA) Atrial fibrillation (Chronic) Apixaban 06/22/2019 Acute exacerbation of congestive heart failure (Acute) ED --> Hospitalized for diuresis, but no mosqueda & pt unable to sleep (left AMA) Cardiomegaly (Acute) CXR; ECHO 05/2019 [facility] [place]LVEF 53%, +LVH (mild), no significant valvular disease; stable compared with 2017 study Anemia (Chronic) Hx of iron deficiency anemia (Acute) improved with iron infusion, but did not feel better (possible iron infusions exacerb HF? ~ Mar--Apr 2023)(doubtful based on no IVF, but possible) Fatigue (Acute) Worsened per pt, affecting ADL .. not just de-conditioning? Hyperlipidemia (Chronic 08/17/12) Osteoarthritis of right knee (Acute) DEPO MEDROL 08/14/22 Arthritis of both knees (Chronic) MERRITT (obstructive sleep apnea) (Chronic) Bi-PAP 07/23/19 Diabetes mellitus with neuropathy (Chronic) Reduced monofilament 06/24/2019 Goal A1C 7.5% or less Uncontrolled diabetes mellitus (Acute) Ortho Surgery OK < 8 (Dr. Ceja).. 10/2023 .. Goal </=7.5% Current use of insulin (Chronic) Acquired hypothyroidism (Chronic 10/28/16) High TSH, but WNL T4 (2021) .. re-checking Cervical disc disorder with myelopathy (Acute) right arm Overactive bladder (Chronic) Myrbetriq RE-started, 03/2023.. rptd improved @ 04/10/23 ov, ik .. Oxybutynin, discontinued 06/24/19 in favor of optimizing DMT2 management Unsteady gait (Acute) Dizziness incompletely evaluated 2' pt leaving [facility] AMA.. ACS ruled out 01/08-12/23.. Metoprolol decreased from 25mg BID per [facility], but maybe NOT implemented? ..and missed in FU! 05/30/23, ik Ataxia (Acute) Asymmetrical sensorineural hearing loss (Acute) Cognitive impairment (Acute) Forgetting, but using notes/print-outs .. ex(?)- helps .. Nail dystrophy (Acute) Onychomycosis (Acute) Tinea pedis (Acute) Blisters of multiple sites (Acute ~01/13/23) 01/13/23 [facility] note- Dr. Barker: Seropurulent Blisters, B/L legs.HE Metatarsalgia of left foot (Acute) Pain of right great toe (Acute) Medical History PAD (peripheral artery disease) Left, per OSVALDO (12/2022) Stopped smoking with greater than 20 pack year history Lung CT Screening, 07/16/20 Epiretinal membrane (~01/2023) right eye Slow heart rate Noted for some time (1/2 dose trialed in 2021 before change in PCP)(chart reviewed, 05/30/23: dizziness incompletely evaluated 2' pt leaving [facility] AMA.. ACS ruled out 01/08-12/23.. Metoprolol decreased from 25mg BID per [facility], but maybe NOT implemented? ..and missed in FU! 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 Chronic and recurrent low back pain L4-[address] scan in 1993, recurrent since then intermittently. Hypomagnesemia (06/22/14) Only 1.0 in the ER today. Pipe smoker Surgical History History of colonoscopy (~02/2023) with Mac S/P cardiac catheterization (05/31/19) 2020 History of cataract removal with insertion of prosthetic lens (11/23/14) History of umbilical hernia repair Status post appendectomy Status post coronary artery stent placement (09/26/16) One vessel for unstable angina Status post coronary artery bypass with autogenous graft, 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) 2017 Repair of umbilical hernia Fracture, Open Treatment ORIF-LEFT SYNDESMOSIS WITH TWO SCREWS Colonoscopy - IV Sedation Extraction of cataract 11/23/14; DR. GOINS; RIGHT EYE 12/07/14; DR. GOINS; LEFT EYE Appendectomy Family History Father Diabetes Dementia Neoplasm PANCREATIC Social History Smoking/Tobacco Use Status: Former Tobacco Use Quit Date: 01/02/17 Pack-years: 40 Tobacco: How many years used: 40 Quit status: has quit before Smoking risk assessment performed?: Yes Alcohol Intake: current Alcohol Intake frequency: a few times a month Alcohol type: beer and hard liquor Counseling given: Yes Counseling provided: reduce to 2 or less/day Details: 2-3 oz at a time Drug use: Never Substance use type: does not use Adopted: No Caregiver/Support person: No Foster care: No Household members: none and other Details: Cats Housing: house Number of Children: 3 number of grandchildren: 4 Communication Needs: None Do you need help understanding health information?: Rarely Pets and animals: Yes Pets and animals: cat(s) Do you think of yourself as: straight/heterosexual Current gender identity: male What is your relationship status?: How often do you talk on the phone with friends or family?: three or more times per week How often do you get together with friends or relatives?: twice per week Panel score (0-1 are the most socially isolated patients): 1 What type of physical activity do you participate in: other Details: Tredmill Duration: 45-60 minutes/day Frequency: 5-6 times per week Special isi needs: No Seatbelt use: always Helmet use: Yes Helmet use: always Drive intox 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 route delivery service driver: No Working smoke detector in home: No Fire extinguisher in home: No Carbon monox detector in home: No Do you feel safe at home: Yes Do you feel safe in your relationship?: Yes Time Spent with Patient Time Spent with Patient: <45 minutes Time was spent: preparing to see the patient(eg.review tests), obtaining and/or reviewing separately otained hiistory and counseling the patient
[2024-12-14 07:28] VITALS: BP 138/125; PULSE 47; RESP 16; TEMP 36.1; O2SAT 96
[2024-12-14] MEDS: Pantoprazole 40 MG TABCR PO (07:32)
--- NOTE | 2024-12-14 07:50 | RESPIRATORY ---
Pt's own ResMed [id number] Auto BiPAP Min EPAP: 12 Max IPAP: 20 PS: 4 No O2 bleed in Pt does not use humidification in his chamber DME: [employer] Nasal Mask: Wisp style, size S/M
[2024-12-14] MEDS: Insulin Aspart 300 UNITS/3 ML PEN SC ×2 (08:46→12:03)
[2024-12-14] MEDS: Meloxicam 15 MG TAB PO (08:49)
[2024-12-14] MEDS: Mirabegron 50 MG TABCR PO (08:49)
[2024-12-14] MEDS: Empaglifozin 25 MG TAB PO (08:49)
[2024-12-14] MEDS: Apixaban 5 MG TAB PO (08:49)
[2024-12-14] MEDS: Fenofibrate, Micronized 145 MG TAB PO (08:49)
[2024-12-14] MEDS: Aspirin E.C. 81 MG TABEC PO (08:49)
--- NOTE | 2024-12-14 09:29 | PTTR_ITS ---
PT Notes Visit Reasons: Left knee DJD Inpatient Physical Therapy Treatment Note [facility] Date: 12/14/2024 PRECAUTIONS:WBAT LLE with AD, Standard SUBJECTIVE: Pt reports he had a good night. He reports he had some pain this morning and he asked for medication and ice on his knee OBJECTIVE: Presents reclined in chair with cryocuff to left knee ? PAIN:2/10 left knee VITALS: ?Monitored by Nursing? BED MOBILITY/TRANSFERS? Supine-sit:Independent? Sit-supine: Supervision with increased time for LLE. ? Sit-stand:Supervision cues to push up? Stand-sit: Supervision cues to reach back? Bed-Chair:Supervision with FWW ? Chair-bed: Supervision with FWW ? Therapeutic Exercises ([id number][]): Direct one-on-one instruction in therapeutic exercises to develop strength, endurance, range of motion and flexibility. -Provided skilled instruction in proper exercise performance ? Exercises ? TKA protocol: supine : QS, Heel slides, ankle pumps, SLR in shortened ROM x 10 reps hamstring stretch with towel roll at ankle 1min x 2 sit : LAQ , marching , heel slides with towel under foot) x 10 reps, Ambulation ? Assistive Device: FWW ? Weight bearing:WBAT LLE Assist: SBA? intermittent verbal cues to hold left quad contraction through mid stance to reduce risk of knee instability? Distance:?300 feet ? Deviation: decreased left knee flexion during swing phase, reduced step length, impaired knee extension at mid stance ? Stairs: 3 4 steps? and 2 6 steps with rails SBA with continuous cues for sequencing step to pattern ASSESSMENT:? Pt demonstrates ability to follow written instructions for HEP. Pt demonstrates improved activity tolerance. Pt also instructed in use of water bottles frozen in cryocuff as he does NOT have an sales service coordinator. Instruction written down for this as well. PLAN: Continue plan of care until discharge to home when medically appropriate TREATMENT CODE/TIME: [id number] DISCHARGE RECOMMENDATION: Home with HEP and outpatient PT as scheduled
[2024-12-14 11:00] VITALS: BP 120/46; PULSE 51; RESP 16; TEMP 36.4; O2SAT 96
--- NOTE | 2024-12-14 12:05 | PDOC.CMDIS ---
Date of service: 12/14/24 Time of Service: 12:05 LACE Index Scoring Tool Questions: Length of Stay (in days): 1 Was the patient admitted via the E.D.?: No Comorbidities: Diabetes w/o Complication, Congestive Heart Failure and Mild Liver/Renal Disease E.D. Visits: 3 Answers: Total Score: 9 Risk of Readmission: Low Risk Care Management Discharge Plan Reason for Hospitalization: left knee DJD, s/p left total knee replacement Discharge Plan: Minh was a direct admit yesterday for a left total knee replacement. He did very well s/p surgery and has been cleared by surgery and PT to go home. Minh has been given exercises to do at home while he recovers. He will f/u with ortho on 12/26/24 and will begin outpatient PT on 12/27/24. Minh will discharge home today with no services. He will f/u as directed and continue per his plan of care. He will transport home with his sister. Minh lives alone, but feels well supported and denied any needs. He was given excellent discharge instructions by Dr. Ceja. Patient/Family Education Needs: Review of discharge instructions, activity, limitations, and discuss Ask me 3. SDOH Health Related Social Needs: Health related social needs lonely/isolated Health related social needs details Pt states he does not need assistance. Health related social needs details: Pt states he does not need assistance.
== END 2024-12-14 12:49 | disposition home or self-care (01) ==
LOC: MS 15:08
PROVIDERS: Admitting Provider Student in an Organized Health Care Education/Training Program; PCP Student in an Organized Health Care Education/Training Program; Visit Provider Student in an Organized Health Care Education/Training Program
PROC: (CPT 27447; principal; 2024-12-13 11:00)
DX: M17.12 Unilateral primary osteoarthritis, left knee (principal); G89.18 Other acute postprocedural pain; M25.562 Pain in left knee; Z79.4 Long term (current) use of insulin; Z79.01 Long term (current) use of anticoagulants; Z79.84 Long term (current) use of oral hypoglycemic drugs; D64.9 Anemia, unspecified; N18.30 Chronic kidney disease, stage 3 unspecified; I25.10 Atherosclerotic heart disease of native coronary artery without angina pectoris; E78.5 Hyperlipidemia, unspecified; I12.9 Hypertensive chronic kidney disease with stage 1 through stage 4 chronic kidney disease, or unspecified chronic kidney disease; G47.33 Obstructive sleep apnea (adult) (pediatric); E03.9 Hypothyroidism, unspecified; E66.9 Obesity, unspecified; Z68.41 Body mass index [BMI] 40.0-44.9, adult; E11.22 Type 2 diabetes mellitus with diabetic chronic kidney disease
CPT/HCPCS: 27447; 64447; 96365; 96366; 96375; 96376; 97110; 97161; C1776; G0378; J0665; J0666; J0690; J1171; J1815; J2250; J2401; J3010; J3490

== ENCOUNTER 2024-12-14 20:30 | Inpatient (IN) | payer MEDICARE, OTHER, SELFPAY ==
[2024-12-14] VITALS (42 sets, daily range): BP systolic 103; BP diastolic 53; PULSE 53–87; RESP 9–25; TEMP 36.2; O2SAT 89–95
--- NOTE | 2024-12-14 20:45 | RT.EKG_ITS ---
APPROVED REPORT Exam: Resting ECG Reason for Exam: chest pain Patient Location: E HR:67 bpm ECG Measurements Heart Rate 67 AXIS MT 202 P 0 QRSd 153 QRS -73 QT 432 T 70 QTc 455 Conclusion Sinus rhythm...normal P axis, V-rate 60- 99 Atrial premature complexes in couplets...pair SV complexes w/ short R-R RBBB and LAFB...QRSd >120mS, axis(-40,240)
--- NOTE | 2024-12-14 21:15 | DI.RAD_ITS ---
Exam(s) XR CHEST 2V PA LATERAL EXAM: XR CHEST 2V PA LATERAL CLINICAL HISTORY: CP post-op TECHNIQUE: 2D digital imaging was performed. Two views. COMPARISON: CR,XR XR CHEST 2V PA LATERAL from 09/26/2024 FINDINGS: Exam is extremely limited by under penetration and semi-erect positioning.. The abdominal soft tissues partially obscure the lung bases on the AP view. HEART: Enlarged. Aorta: Not dilated. PULMONARY VASCULATURE: Normal. MEDIASTINUM: Unremarkable. LUNGS: Grossly clear. PLEURAL SPACE: No pleural effusion or pneumothorax. BONE:Sternal wires. SOFT TISSUES: Unremarkable. IMPRESSION: Limited exam. No acute abnormality. The preliminary [facility] report was reviewed. DATA REPOSITORY: RADIATION DOSE DELIVERED:
--- NOTE | 2024-12-14 21:24 | ED.GENADUL_ITS ---
Discharge Plan Discharge Details Chief Complaint: Recheck Primary Care Provider: Richard Jeffers ED Provider: Senait Samuel Home Meds and New Rx's Prescriptions: No Action insulin aspart U-100 [Novolog FlexPen U-100 Insulin] 100 unit/mL (3 mL) insulin pen See Rx Instructions .ROUTE .COMPLEX Qty: 90 3RF Dose Instruction: INJECT 10 TO 30 UNITS BEFORE MEALS PER MEALTIME CORRECTION SCHEDULE Patient Comments: 12/13/24: pt unsure when he last took this, sometime yesterday F.S RN Rx Instructions: INJECT 10 TO 30 UNITS BEFORE MEALS PER MEALTIME CORRECTION SCHEDULE (DME) FreeStyle Bahman 2 [place] Misc See Rx Instructions .ROUTE .MEDSUPPLY Qty: 1 0RF Rx Instructions: As directed (DME) Knee Brace - STABILIZING See Rx Instructions .Route .MEDSUPPLY Qty: 1 1RF Rx Instructions: One RT KNEE STABILIZING BRACE; mirabegron [Myrbetriq] 50 mg tablet extended release 24 hr 50 mg PO DAILY Qty: 90 3RF aspirin 81 mg tablet,delayed release (DR/EC) 81 mg PO DAILY Patient Comments: 06/02/19-replaces 325mg. daily dose. [facility] discharge note. JOBY Mchugh (DME) lancets [FreeStyle Lancets] 28 gauge misc See Rx Instructions .ROUTE .MEDSUPPLY Qty: 400 3RF Rx Instructions: to test BS 4X daily for DM/E11.9 and to keep A1c at or under 7.0% (DME) pen needle, diabetic [BD Ultra-Fine Amber Pen Needle] 32 gauge x 5/32 needle 1 ea Miscellaneous QID Qty: 400 3RF Rx Instructions: E11.65 to administer insulin 4x/day (DME) Blood Glucose Test Strip See Rx Instructions .MEDSUPPLY Qty: 400 3RF Rx Instructions: As directed to check blood glucose four times daily. On insulin. Dispense covered brand. (DME) FreeStyle Bahman 2 Sensor Kit See Rx Instructions .ROUTE .MEDSUPPLY Qty: 2 11RF Rx Instructions: As directed Eliquis 5 mg tablet 5 mg PO BID Qty: 180 3RF Rx Instructions: PLEASE EXPLAIN WHAT HAPPENED TO 05/29/23 PRESCRIPTION? metoprolol tartrate 25 mg tablet 25 mg PO BID Qty: 180 3RF Rx Instructions: Heart Jardiance 25 mg tablet See Rx Instructions .ROUTE .COMPLEX Qty: 90 3RF Dose Instruction: TAKE 1 TABLET EVERY MORNING Rx Instructions: TAKE 1 TABLET EVERY MORNING rosuvastatin 40 mg tablet See Rx Instructions .ROUTE .COMPLEX Qty: 90 3RF Dose Instruction: TAKE 1 TABLET DAILY Rx Instructions: TAKE 1 TABLET DAILY cholecalciferol (vitamin D3) 1,250 mcg (50,000 unit) capsule 1,250 mcg PO QWEEK Qty: 10 0RF Rx Instructions: High dose Vit D, WEEKLY, per Nephro (unless already sent in?) fenofibrate nanocrystallized [Tricor] 145 mg tablet 145 mg PO DAILY Qty: 90 3RF semaglutide 1 mg/dose (4 mg/3 mL) pen injector 1 mg subcut QWEEK Qty: 3 5RF furosemide 40 mg tablet 40 mg PO DAILY PRN (Reason: LEG SWELLING) Qty: 90 3RF Patient Comments: 11/15/24 pt takes very 3 days RH Rx Instructions: Re-start, 04/14 x 3-5 days levothyroxine 50 mcg tablet See Rx Instructions .ROUTE .COMPLEX Qty: 90 3RF Dose Instruction: TAKE 1 TABLET DAILY FOR THYROID Rx Instructions: TAKE 1 TABLET DAILY FOR THYROID nitroglycerin 0.4 mg tablet, sublingual 0.4 mg SL Q5M PRN (Reason: chest pain) Qty: 90 3RF Rx Instructions: Take 1 at onset of chest pain, may repeat x2 q5 min if pain continues. losartan 25 mg tablet See Rx Instructions .ROUTE .COMPLEX Qty: 90 0RF Dose Instruction: TAKE 1 TABLET AT BEDTIME FOR DIABETES, AND TO PROTECT KIDNEYS Rx Instructions: TAKE 1 TABLET AT BEDTIME FOR DIABETES, AND TO PROTECT KIDNEYS ketoconazole 2 % cream 1 applic topical DAILY Qty: 120 6RF Rx Instructions: Apply to 1g to skin and toenails once daily insulin glargine [Lantus Solostar U-100 Insulin] 100 unit/mL (3 mL) insulin pen 65 unit Sub-Q QPM Rx Instructions: Or as directed for dx: E11.65 acetaminophen 500 mg tablet 1,000 mg PO Q8H PRN Qty: 90 0RF Rx Instructions: Take two tablets up to every 8 hours as needed for pain pantoprazole 40 mg tablet,delayed release (DR/EC) 40 mg PO DAILY Qty: 14 0RF Rx Instructions: Take one tablet once daily docusate sodium [Colace] 100 mg capsule 100 mg PO BID Qty: 28 0RF gabapentin 300 mg capsule 300 mg PO QHS Qty: 14 0RF Rx Instructions: Take one tablet at bedtime oxycodone 5 mg tablet 5 mg PO Q4H PRNQty: 18 0RF Rx Instructions: Take one tablet up to every 4 hours as needed for severe postoperative pain meloxicam 15 mg tablet 15 mg PO DAILY Qty: 30 1RF Rx Instructions: Take one tablet daily for pain and inflammation HPI General Date/Time Provider Initiated Documentation: 12/14/24 20:51 . HPI Narrative: Minh is a 74-year-old male who presents to the emergency department today for evaluation of bleeding from left knee replacement and episode of chest pain that occurred this evening Underwent L knee replacement surgery on 12/13/2024, discharged on 12/14/2024. This evening noticed his surgical site started bleeding after stepping down a stair, causing immediate discomfort and bleeding into the bandage. He has been off Eliquis for 1.5 weeks due to surgery, supposed to restart tonight. He reports he had an episode of mild chest pain 3-4 hours ago, attributed to stress. Pain lasted a few minutes, subsided within 5 minutes after nitroglycerin. Pain rated 5/10, now resolved. Denies associated shortness of breath, sweating, nausea, dizziness, or radiation of discomfort. Denies recent fever/chills, congestion, sore throat, cough, nausea/vomiting, abdominal pain, change in bowel or bladder function. PMH significant for IDDM, A-fib on anticoagulation, CAD, cardiomegaly, HTN, HLD, CHF, MERRITT, CKD stage III. No history of lung disease, does not use oxygen at home. Does use a CPAP at night PAST SURGICAL HISTORY: - Triple bypass surgery 7-8 years ago - Knee replacement surgery on 12/13/2024 Related Data Home Medications ?Medication ?Instructions ?Recorded ?Confirmed aspirin 81 mg tablet,delayed 81 mg PO DAILY 06/02/19 0 12/14/24 release lancets 28 gauge (FreeStyle #400 ea 02/11/21 12/14/24 Lancets) pen needle, diabetic 32 gauge x #400 ea 11/22/21 08/13 /25 5/32 (BD Ultra-Fine Amber Pen Needle) flash glucose scanning reader #1 ea 11/17/21 12/14/24 (FreeStyle Bahman 2 [place]) blood sugar diagnostic (Blood #400 ea 12/13/21 5 Glucose Test strips) flash glucose sensor (FreeStyle #2 ea 11/27/22 5 Bahman 2 Sensor kit) insulin aspart U-100 100 unit/mL See Rx Instructions . Route 05/29/23 12/14/24 (3 mL) subcutaneous pen (Novolog .COMPLEX #90 mL FlexPen U-100 Insulin aspart) apixaban 5 mg tablet (Eliquis) 5 mg PO BID #180 tabs 0 07/22/23 12/14/24 metoprolol tartrate 25 mg tablet 25 mg PO BID #180 tab -caps 07/28/23 12/14/24 empagliflozin 25 mg tablet See Rx Instructions .Route 08/04/23 12/14/24 (Jardiance) .COMPLEX #90 tabs rosuvastatin 40 mg tablet See Rx Instructions .Route 0 09/16/23 12/14/24 .COMPLEX #90 tabs cholecalciferol (vitamin D3) 1,250 1,250 mcg PO QWEEK #10 caps 09/28/23 12/14/24 mcg (50,000 unit) capsule Knee Brace - STABILIZING #1 ea 10/25/23 12/14/24 fenofibrate nanocrystallized 145 145 mg PO DAILY #90 t ab-caps 02/24/24 12/14/24 mg tablet (Tricor) semaglutide 1 mg/dose (4 mg/3 mL) 1 mg (0.75 mL) subcu t QWEEK #3 mL 04/14/24 12/14/24 subcutaneous pen injector mirabegron 50 mg tablet,extended 50 mg PO DAILY #90 ta bs 04/28/24 12/14/24 release 24 hr (Myrbetriq) furosemide 40 mg tablet 40 mg PO DAILY PRN LEG SWELL ING 05/03/24 12/14/24 #90 tabs levothyroxine 50 mcg tablet See Rx Instructions .Route 05/03/24 12/14/24 .COMPLEX #90 tabs nitroglycerin 0.4 mg sublingual 0.4 mg sublingual Q5M PRN chest 05/03/24 12/14/24 tablet pain #90 tabs losartan 25 mg tablet See Rx Instructions .Route 0 07/06/24 12/14/24 .COMPLEX #90 tabs ketoconazole 2 % topical cream 1 applic topical DAILY #120 grams 11/28/24 12/14/24 insulin glargine 100 unit/mL (3 65 unit subcut QPM 11/2512/14/24 mL) subcutaneous pen (Lantus Solostar U-100 Insulin) acetaminophen 500 mg tablet 1,000 mg (2 x 500 mg) PO Q 8H PRN 12/13/24 12/14/24 pain #90 tabs docusate sodium 100 mg capsule 100 mg PO BID #28 caps 12/13/24 12/14/24 (Colace) gabapentin 300 mg capsule 300 mg PO QHS #14 caps 12/1312/14/24 meloxicam 15 mg tablet 15 mg PO DAILY #30 tabs 12/0212/14/24 oxycodone 5 mg tablet 5 mg PO Q4H PRN #18 tabs 04/2712/14/24 pantoprazole 40 mg tablet,delayed 40 mg PO DAILY #14 t abs 12/13/24 12/14/24 release Previous Rx's ?Medication ?Instructions ?Recorded lancets 28 gauge (FreeStyle #400 ea 02/11/21 Lancets) pen needle, diabetic 32 gauge x #400 ea 03/25/21 (BD Ultra-Fine Amber Pen Needle) flash glucose scanning reader #1 ea 11/17/21 (FreeStyle Bahman 2 [place]) blood sugar diagnostic (Blood #400 ea 12/13/21 Glucose Test strips) flash glucose sensor (FreeStyle #2 ea 11/27/22 Bahman 2 Sensor kit) insulin aspart U-100 100 unit/mL See Rx Instructions . Route 05/29/23 (3 mL) subcutaneous pen (Novolog .COMPLEX #90 mL FlexPen U-100 Insulin aspart) apixaban 5 mg tablet (Eliquis) 5 mg PO BID #180 tabs 0 07/22/23 metoprolol tartrate 25 mg tablet 25 mg PO BID #180 tab -caps 07/28/23 empagliflozin 25 mg tablet See Rx Instructions .Route 08/04/23 (Jardiance) .COMPLEX #90 tabs rosuvastatin 40 mg tablet See Rx Instructions .Route 0 09/16/23 .COMPLEX #90 tabs cholecalciferol (vitamin D3) 1,250 1,250 mcg PO QWEEK #10 caps 09/28/23 mcg (50,000 unit) capsule Knee Brace - STABILIZING #1 ea 10/25/23 fenofibrate nanocrystallized 145 145 mg PO DAILY #90 t ab-caps 02/24/24 mg tablet (Tricor) semaglutide 1 mg/dose (4 mg/3 mL) 1 mg (0.75 mL) subcu t QWEEK #3 mL 04/14/24 subcutaneous pen injector mirabegron 50 mg tablet,extended 50 mg PO DAILY #90 ta bs 04/28/24 release 24 hr (Myrbetriq) furosemide 40 mg tablet 40 mg PO DAILY PRN LEG SWELL ING 05/03/24 #90 tabs levothyroxine 50 mcg tablet See Rx Instructions .Route 05/03/24 .COMPLEX #90 tabs nitroglycerin 0.4 mg sublingual 0.4 mg sublingual Q5M PRN chest 05/03/24 tablet pain #90 tabs losartan 25 mg tablet See Rx Instructions .Route 0 07/06/24 .COMPLEX #90 tabs ketoconazole 2 % topical cream 1 applic topical DAILY #120 grams 11/28/24 acetaminophen 500 mg tablet 1,000 mg (2 x 500 mg) PO Q 8H PRN 12/13/24 pain #90 tabs docusate sodium 100 mg capsule 100 mg PO BID #28 caps 12/13/24 (Colace) gabapentin 300 mg capsule 300 mg PO QHS #14 caps 12/13 meloxicam 15 mg tablet 15 mg PO DAILY #30 tabs 12/02 06/28 oxycodone 5 mg tablet 5 mg PO Q4H PRN #18 tabs 04/27 pantoprazole 40 mg tablet,delayed 40 mg PO DAILY #14 t abs 12/13/24 release Allergies Allergy/AdvReac Type Severity Reaction Status Date / Time No Known Allergies Allergy Verified 12/14/24 20:43 General Stated Complaint: Recheck CHRISTIANE: 4 Exam Narrative Exam Narrative: General Appearance: Normal. Patient is alert and oriented, no acute distress. Vital signs: Within normal limits. Respiratory: Lungs clear bilaterally. No wheezes, rales, or rhonchi. Cardiovascular: Normal heart sounds. No murmurs, gallops, or rubs. Back, Musculoskeletal: L Postoperative knee with significant bleeding into bandage. Scant bleeding with bandage taken down, unable to express any blood fr om suture lines. No wound dehiscence. No surrounding erythema, pus drainage, or foul odor. No distal numbness or tingling. Sensation intact. Skin: Warm and dry, no rash. Psychiatric: Normal. Course Vital Signs Vital signs: Vital Signs Temperature 36.2 C L 12/14/24 20:32 Pulse 87 12/14/24 20:32 Respiratory Rate 16 12/14/24 20:32 Blood Pressure 103/53 L 12/14/24 20:32 Pulse Oximetry 90 L 12/14/24 20:32 Temperature 36.2 C L 12/14/24 20:32 Temperature Source Temporal Artery Scan 12/14/24 20:32 Pulse 87 12/14/24 20:32 Respiratory Rate 16 12/14/24 20:32 Blood Pressure 103/53 L 12/14/24 20:32 Pulse Oximetry 90 L 12/14/24 20:32 Oxygen Delivery Method Room Air 12/14/24 20:32 Oxygen Flow Rate 0 12/14/24 20:32 Medical Decision Making Initial Assessment: 74-year-old male with chest pain and postoperative bleeding after knee replacement. O2 sat noted to be low at triage, 90% on room air; this improved to mid 90s in the room at rest. Differential Diagnosis includes but is not limited to: ACS, angina, PE, pneumonia, symptomatic anemia, GERD, esophageal spasm, electrolyte imbalance Discussed case with Dr. Ceja, orthopedic surgeon who performed surgery. He recommended taking down dressing, and applying pressure dressing for patient to keep in place for 3 to 4 days I independently interpreted the following tests: EKG shows normal sinus rhythm, rate 67, occasional PACs, RBBB, and LAFB, unchanged from previous. Troponin very elevated at 491. Mild hypomagnesemia, magnesium 1.5. Creatinine/BUN consistent with GLENYS, creatinine 2.5 today with BUN 65, compared to 1.6 and 43 on 11/02/2024. CBC significant for new anemia, 10.6 and 31.9 compared to 14.6 and 43.7 on 11/02/2024. Leukocytosis noted, white cell count 13.97. While in the emergency department Minh received aspirin 324 mg. Gentle rehydration with [address] chest performed, no pulmonary embolism noted. Handoff report given to , domenic attending. Plan for repeat troponin and cardiology consultation. Patient consented to the use of [facility] Imaging Data Radiologic Study: Radiologist's impression: PROCEDURE INFORMATION: Exam: CTA Chest With Contrast Exam date and time: 12/14/2024 10:20 PM Age: 74 years old Clinical indication: Other: Cp, low o2 sat TECHNIQUE: Imaging protocol: Computed tomographic angiography of the chest with contrast. Exam focused on the arteries. 3D rendering (Not supervised by radiologist): MIP and/or 3D reconstructed images were created by the technologist. Contrast material: OMNIPAQUE 350; Contrast volume: 100 ml; Contrast route: INTRAVENOUS (IV); COMPARISON: CR XR CHEST 2V PA LATERAL 12/14/2024 9:53 PM FINDINGS: Pulmonary arteries: Normal. No pulmonary emboli. Aorta: Aorta demonstrates mild atherosclerotic calcification. No aortic aneurysm or dissection. Lungs: Unremarkable. No consolidation. No masses. Pleural spaces: Unremarkable. No pneumothorax. No pleural effusion. Heart: Mild cardiomegaly. Coronary arteries: Coronary artery calcifications. Lymph nodes: Unremarkable. No enlarged lymph nodes. Bones/joints: Previous median sternotomy. Old bilateral rib fractures. Soft tissues: Unremarkable. IMPRESSION: No pulmonary embolism identified. Quality:SDOH Health Related Social Needs: Health related social needs lonely/isolated Health related social needs details Pt states he does not need assistance. PFSH All Active Problems History of total left knee replacement (Acute 12/13/24) Edema (Acute) Venous insufficiency (Acute) Pain in left foot (Acute) Plantar fasciitis of left foot (Acute) Gout due to renal impairment involving toe of right foot (Acute) Hypercalcemia (Acute) Arthritis of right knee (Acute) 40MG DEPO MEDROL 08/08/24 Peripheral sensory neuropathy (Acute) Hammer toes, bilateral (Acute) Osteoarthritis of both knees (Acute) Laxity of knee joint (Acute) Sensation of knee instability (Acute) Unstable right knee (Acute) Cardiomyopathy (Acute) Toenail deformity (Acute) Coordination of complex care (Acute) Chart Review ID several Dx/Tx needing re-assessment or Hx requiring re- evaluation ([facility] apr?)(Bi-Pap ordered 12/2023, rec'd?)(Fe Infusion)(Vit D started? re-checked?)(++) Bradycardia (Acute) Noted for some time (1/2 dose trialed in 2021 before change in PCP)(chart reviewed, 05/30/23: dizziness incompletely evaluated 2' pt leaving [facility] AMA.. ACS ruled out 01/08-12/23.. Metoprolol decreased from 25mg BID per [facility], but maybe NOT implemented? ..and missed in FU! 05/30/23, ik Diuresis (Acute) actively diuresing, good results with q 2-3 days lasix (May 2023). Hx exacerbated CHF in Fall 2022 (AMA 2' intolerance diuretics, unable to get to bathroom; poor sleep 2' noise + uncomfortable bed)((Rx if HOSPTLZATN needed .. ik, 04/2023)) Pitting edema (Chronic) improved with diuretics (mar-apr 2023) .. cont q2 days.. [ ] [facility] [place] review/eval for ortho surgery Low vitamin D level (Acute) Very low, 7.9! Essential hypertension (Chronic 01/31/13) CHF (congestive heart failure), NYHA class II (Chronic) EF 40% (12/2022), decreased from 2019 .. Clinical Dx ClassII CKD (chronic kidney disease) stage 3, GFR 30-59 ml/min (Chronic) History of kidney injury (Acute) GLENYS 2' furosemide, 04/17/23, but needed for HF/Edema.. Seeing Nephrology (quarterly) Decreased dorsalis pedis pulse (Acute) per Pod, 01/13/23 (2/4) Absence of posterior tibial pulse (Acute) per Pod, 01/13/23 Coronary artery disease (Chronic) 3-vessel (LAD, LCX, RCA) Atrial fibrillation (Chronic) Apixaban 06/22/2019 Acute exacerbation of congestive heart failure (Acute) ED --> Hospitalized for diuresis, but no mosqueda & pt unable to sleep (left AMA) Cardiomegaly (Acute) CXR; ECHO 05/[address] [facility]--LVEF 53%, +LVH (mild), no significant valvular disease; stable compared with 2017 study Anemia (Chronic) Hx of iron deficiency anemia (Acute) improved with iron infusion, but did not feel better (possible iron infusions exacerb HF? ~ Mar--Apr 2023)(doubtful based on no IVF, but possible) Fatigue (Acute) Worsened per pt, affecting ADL .. not just de-conditioning? Hyperlipidemia (Chronic 08/17/12) Osteoarthritis of right knee (Acute) DEPO MEDROL 08/14/22 Arthritis of both knees (Chronic) MERRITT (obstructive sleep apnea) (Chronic) Bi-PAP 07/23/19 Diabetes mellitus with neuropathy (Chronic) Reduced monofilament 06/24/2019 Goal A1C 7.5% or less Uncontrolled diabetes mellitus (Acute) Ortho Surgery OK < 8 (Dr. Ceja).. 10/2023 .. Goal </=7.5% Current use of insulin (Chronic) Acquired hypothyroidism (Chronic 10/28/16) High TSH, but WNL T4 (2021) .. re-checking Cervical disc disorder with myelopathy (Acute) right arm Overactive bladder (Chronic) Myrbetriq RE-started, 03/2023.. rptd improved @ 04/10/23 ov, ik .. Oxybutynin, discontinued 06/24/19 in favor of optimizing DMT2 management Unsteady gait (Acute) Dizziness incompletely evaluated 2' pt leaving [facility] AMA.. ACS ruled out 01/08- 12/23.. Metoprolol decreased from 25mg BID per [facility], but maybe NOT implemented? ..and missed in FU! 05/30/23, ik Ataxia (Acute) Asymmetrical sensorineural hearing loss (Acute) Cognitive impairment (Acute) Forgetting, but using notes/print-outs .. ex(?)- helps .. Nail dystrophy (Acute) Onychomycosis (Acute) Tinea pedis (Acute) Blisters of multiple sites (Acute ~01/13/23) 01/13/[address] [facility] note- Dr. Barker: Seropurulent Blisters, B/L legs.HE Metatarsalgia of left foot (Acute) Pain of right great toe (Acute) Medical History PAD (peripheral artery disease) Left, per OSVALDO (12/2022) Stopped smoking with greater than 20 pack year history Lung CT Screening, 07/16/20 Epiretinal membrane (~01/2023) right eye Slow heart rate Noted for some time (1/2 dose trialed in 2021 before change in PCP)(chart reviewed, 05/30/23: dizziness incompletely evaluated 2' pt leaving [facility] AMA.. ACS ruled out 01/08-12/23.. Metoprolol decreased from 25mg BID per [facility], but maybe NOT implemented? ..and missed in FU! 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 Chronic and recurrent low back pain L4-[address] scan in 1993, recurrent since then intermittently. Hypomagnesemia (06/22/14) Only 1.0 in the ER today. Pipe smoker Surgical History History of colonoscopy (~02/2023) with Mac S/P cardiac catheterization (05/31/19) 2019 History of cataract removal with insertion of prosthetic lens (11/23/14) History of umbilical hernia repair Status post appendectomy Status post coronary artery stent placement (09/26/16) One vessel for unstable angina Status post coronary artery bypass with autogenous graft, 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) 2016 Repair of umbilical hernia Fracture, Open Treatment ORIF-LEFT SYNDESMOSIS WITH TWO SCREWS Colonoscopy - IV Sedation Extraction of cataract 11/23/14; DR. GOINS; RIGHT EYE 12/07/14; DR. GOINS; LEFT EYE Appendectomy Family History Father Diabetes Dementia Neoplasm PANCREATIC Social History Smoking/Tobacco Use Status: Former Tobacco Use Quit Date: 01/02/17 Pack-years: 40 Tobacco: How many years used: 40 Quit status: has quit before Smoking risk assessment performed?: Yes Alcohol Intake: former Counseling given: Yes Counseling provided: reduce to 2 or less/day Details: 2-3 oz at a time Drug use: Never Substance use type: does not use Adopted: No Caregiver/Support person: No Foster care: No Household members: none and other Details: Cats Housing: house Number of Children: 3 number of grandchildren: 4 Communication Needs: None Do you need help understanding health information?: Rarely Pets and animals: Yes Pets and animals: cat(s) Do you think of yourself as: straight/heterosexual Current gender identity: male What is your relationship status?: How often do you talk on the phone with friends or family?: three or more times per week How often do you get together with friends or relatives?: twice per week Panel score (0-1 are the most socially isolated patients): 1 What type of physical activity do you participate in: other Details: Tredmill Duration: 45-60 minutes/day Frequency: 5-6 times per week Special isi needs: No Seatbelt use: always Helmet use: Yes Helmet use: always Drive intox 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 pile 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
[2024-12-14 21:41] LABS: Abs Immature Grans 0.07 10^3/uL (0.0-0.06); HCT 31.9 % (40.0-50.0); HGB 10.6 g/dL (13.5-17.5); Immature Grans % 0.5 %; MCH 32.5 pg (27.0-33.0); MCHC 33.2 % (32.0-36.0); MCV 98 fL (80-95); MPV 11.4 fL (8.0-11.0); Platelet Count 227 10^3/uL (130-400); RBC 3.26 10^6/uL (4.36-5.78); RDW 12.7 % (11.8-14.1); RDW-SD 45.8 fL; WBC 13.97 10^3/uL (4.4-10.8)
--- NOTE | 2024-12-14 22:00 | DI.CT_ITS ---
Exam(s) CT CHEST PE CTA EXAM: CT CHEST PE CTA CLINICAL HISTORY: CP, low O2 sat. TECHNIQUE: Imaging Protocol: Axial CT angiography was performed with multi- slice acquisition and multi-planar reconstructions as well as axial, coronal and sagittal MIP reconstructions. Computer aided detection (CAD) was utilized. CONTRAST MATERIAL: Intravenous: Omnipaque 350 Contrast volume:100 ml COMPARISON: CT CHEST WITHOUT CONTRAST from 03/07/2016 CR,XR XR CHEST 2V PA LATERAL from 12/14/2024 FINDINGS: Pulmonary Arteries: No evidence of filling defect to suggest pulmonary emboli. Mediastinum and Nicki: No dominant adenopathy or fluid collection. Pulmonary parenchyma: No consolidation or dominant measurable mass. Pleura: No effusion or pneumothorax. Heart: The heart is mildly dilated. Coronary artery calcifications are seen. Status post CABG. Aorta: Thoracic aorta non-dilated. No dissection. Mild atherosclerotic calcification. Upper abdomen: No acute findings. Bones: Old bilateral rib fractures. Sternal wires. Degenerative changes in the spine. Tubes, Catheters, and Lines: None Soft tissues: Unremarkable. IMPRESSION: No evidence of pulmonary embolism or other acute abnormality. The preliminary [facility] report was reviewed. RADIATION DOSE DELIVERED: 475.46mGy.cm Total DLP DATA REPOSITORY: All CT scans at this facility are submitted to the National Radiology Data Registry (NRDR) Dose Index Registry (DIR) with the [employer] (ACR). RADIATION OPTIMIZATION: All CT scans at this facility use at least one of these dose optimization techniques: automated exposure control; mA and/or kV adjustment per patient size (includes targeted exams where dose is matched to clinical indication); or iterative reconstruction.
[2024-12-14 22:06] LABS: ALT 16 U/L (16-63); AST 16 U/L (15-37); Albumin 3.3 g/dL (3.4-5.0); Alkaline Phosphatase 70 U/L (46-116); Anion Gap 7.8 mmol/L (3-11); BUN 65 mg/dL (7-18); Bilirubin, Total 0.5 mg/dL (0.2-1.0); CO2 23.2 mmol/L (21.0-32.0); Calcium 9.0 mg/dL (8.5-10.1); Chloride 105 mmol/L (98-107); Estimated GFR 26.63 (mL/min/1.73m2); Glucose 328 mg/dL (74-106); Magnesium 1.5 mg/dL (1.8-2.4); Potassium 5.0 mmol/L (3.5-5.1); Sodium 136 mmol/L (136-145); Total Protein 6.3 g/dL (6.4-8.2)
[2024-12-14 22:13] LABS: Troponin I 491 ng/L (<or=76)
[2024-12-14 22:14] LABS: RBC Morphology Normal
--- NOTE | 2024-12-14 22:20 | DI.VRAD_ITS ---
PROCEDURE INFORMATION: Exam: XR Chest Exam date and time: 12/14/2024 9:53 PM Age: 74 years old Clinical indication: Other: Cp post-op TECHNIQUE: Imaging protocol: Radiologic exam of the chest. Views: 2 views. COMPARISON: CR XR CHEST 2V PA LATERAL 09/26/2024 5:40 PM FINDINGS: Limitations: Study limited by the patient's body habitus. Lungs: Unremarkable. No consolidation. Pleural spaces: Unremarkable. No pleural effusion. No pneumothorax. Heart/Mediastinum: Mild cardiomegaly. Bones/joints: Previous median sternotomy. IMPRESSION: No acute findings. Dictated and Authenticated by: Skyler Grimes MD. Orderin Grisel Sapp MD
[2024-12-14] MEDS: Aspirin 81 MG CHEW 324 MG CH (22:22)
[2024-12-14] MEDS: Omnipaque 350 MG/ML 100 ML BTL IJ (22:43)
[2024-12-14] MEDS: Normal Saline - Diluent 50 ML VIAL IJ (22:44)
[2024-12-14] MEDS: Normal Saline Flush 10 ML SYR IVP (22:44)
--- NOTE | 2024-12-14 23:04 | DI.VRAD_ITS ---
PROCEDURE INFORMATION: Exam: CTA Chest With Contrast Exam date and time: 12/14/2024 10:20 PM Age: 74 years old Clinical indication: Other: Cp, low o2 sat TECHNIQUE: Imaging protocol: Computed tomographic angiography of the chest with contrast. Exam focused on the arteries. 3D rendering (Not supervised by radiologist): MIP and/or 3D reconstructed images were created by the technologist. Contrast material: OMNIPAQUE 350; Contrast volume: 100 ml; Contrast route: INTRAVENOUS (IV); COMPARISON: CR XR CHEST 2V PA LATERAL 12/14/2024 9:53 PM FINDINGS: Pulmonary arteries: Normal. No pulmonary emboli. Aorta: Aorta demonstrates mild atherosclerotic calcification. No aortic aneurysm or dissection. Lungs: Unremarkable. No consolidation. No masses. Pleural spaces: Unremarkable. No pneumothorax. No pleural effusion. Heart: Mild cardiomegaly. Coronary arteries: Coronary artery calcifications. Lymph nodes: Unremarkable. No enlarged lymph nodes. Bones/joints: Previous median sternotomy. Old bilateral rib fractures. Soft tissues: Unremarkable. IMPRESSION: No pulmonary embolism identified. Dictated and Authenticated by: Skyler Grimes MD. Orderin Grisel Sapp MD
[2024-12-14] MEDS: Magnesium Oxide 400 MG TAB PO (23:20)
[2024-12-14] MEDS: Normal Saline 500 ML IV (23:20)
[2024-12-14 23:37] LABS: Troponin I 533 ng/L (<or=76)
--- NOTE | 2024-12-14 23:40 | ED.PROG_ITS ---
Date of service: 12/14/24 Time of Service: 23:40 Medical Decision Making This patient was signed out to me. Please see previous notes for H&P and initial eval. In brief, 74yo M with hx knee replacement 12/13/24, A-fib on anticoagulation (has been holding eliquis for past 1.5 weeks) , CAD s/p CABG, cardiomegaly, CHF with EF 40%, HTN, HLD, CHF, MERRITT, CKD stage III, DM, presented for suture displacement and bleeding at surgical site. On arrival he also reported mild chest pain shortly before arrival which resolved with one nitro. EKG unchanged from priors, labs showed elevated troponin at 491 and he received 325 of ASA as well as Mg replacement. CT for PE negative. Repeat troponin about 2 hours later slightly uptrending to 533. T1 vs T2 NSTEMI; given recent surgery favor T2. Holding off on heparin pending cardiology; signed out pending cardiology consult. On reassessment patient remains chest pain free with reassuring vital signs. Spoke with Dr. Montelongo [facility] cardiology; plan for 600mg plavix, heparin bolus and gtt, patient accepted under Dr. Harvey and listed for bed (anticipated in the afternoon). Discussed with [facility] hospitalist Dr. Martin; pt accepted to medicine service. Awaiting transfer to the floor. Lab Data Lab results reviewed: Yes I reviewed the patient's lab results. Labs: Laboratory Tests Range/Units 12/14/24 12/14/24 12/15/24 21:35 23:12 00:34 WBC (4.4-10.8) 10^3/uL 13.97 H RBC (4.36-5.78) 10^6/uL 3.26 L Hgb (13.5-17.5) g/dL 10.6 L Hct (40.0-50.0) % 31.9 L MCV (80-95) fL 98 H MCH (27.0-33.0) pg 32.5 MCHC (32.0-36.0) % 33.2 RDW (11.8-14.1) % 12.7 Plt Count (130-400) 10^3/uL 227 MPV (8.0-11.0) fL 11.4 H Immature Gran % % 0.5 Neutrophils % % 77.6 Lymphocytes % % 9.2 Monocytes % % 11.1 Eosinophils % % 1.3 Basophils % % 0.3 Nucleated RBC % (0.0-0.3) % 0.0 Absolute Neutrophils (1.2-6.7) 10^3/uL 10.84 H Absolute Lymphocytes (1.2-3.4) 10^3/uL 1.29 Absolute Monocytes (0.1-0.8) 10^3/uL 1.55 H Absolute Eosinophils (0.0-0.7) 10^3/uL 0.18 Absolute Basophils (0.0-0.2) 10^3/uL 0.04 RBC Morphology Normal Sodium (136-145) mmol/L 136 Potassium (3.5-5.1) mmol/L 5.0 Chloride (98-107) mmol/L 105 Carbon Dioxide (21.0-32.0) mmol/L 23.2 Anion Gap (3-11) mmol/L 7.8 BUN (7-18) mg/dL 65 H Creatinine (0.70-1.30) mg/dL 2.5 H Est GFR (CKD-EPI 2020) (mL/min/1.73m2) 26.63 Glucose (74-106) mg/dL 328 H Calcium (8.5-10.1) mg/dL 9.0 Magnesium (1.8-2.4) mg/dL 1.5 L Total Bilirubin (0.2-1.0) mg/dL 0.5 AST (15-37) U/L 16 ALT (16-63) U/L 16 Alkaline Phosphatase (46-116) U/L 70 Troponin I (<or=76) ng/L 491 H* 533 H* 641 H* NT-Pro-B Natriuret Pep (<300) pg/mL Total Protein (6.4-8.2) g/dL 6.3 L Albumin (3.4-5.0) g/dL 3.3 L Add-On Test Request DONE Range/Units 12/15/24 23:12 WBC (4.4-10.8) 10^3/uL RBC (4.36-5.78) 10^6/uL Hgb (13.5-17.5) g/dL Hct (40.0-50.0) % MCV (80-95) fL MCH (27.0-33.0) pg MCHC (32.0-36.0) % RDW (11.8-14.1) % Plt Count (130-400) 10^3/uL MPV (8.0-11.0) fL Immature Gran % % Neutrophils % % Lymphocytes % % Monocytes % % Eosinophils % % Basophils % % Nucleated RBC % (0.0-0.3) % Absolute Neutrophils (1.2-6.7) 10^3/uL Absolute Lymphocytes (1.2-3.4) 10^3/uL Absolute Monocytes (0.1-0.8) 10^3/uL Absolute Eosinophils (0.0-0.7) 10^3/uL Absolute Basophils (0.0-0.2) 10^3/uL RBC Morphology Sodium (136-145) mmol/L Potassium (3.5-5.1) mmol/L Chloride (98-107) mmol/L Carbon Dioxide (21.0-32.0) mmol/L Anion Gap (3-11) mmol/L BUN (7-18) mg/dL Creatinine (0.70-1.30) mg/dL Est GFR (CKD-EPI 2020) (mL/min/1.73m2) Glucose (74-106) mg/dL Calcium (8.5-10.1) mg/dL Magnesium (1.8-2.4) mg/dL Total Bilirubin (0.2-1.0) mg/dL AST (15-37) U/L ALT (16-63) U/L Alkaline Phosphatase (46-116) U/L Troponin I (<or=76) ng/L NT-Pro-B Natriuret Pep (<300) pg/mL 3526 H Total Protein (6.4-8.2) g/dL Albumin (3.4-5.0) g/dL Add-On Test Request Quality:SDOH Health Related Social Needs: Health related social needs lonely/isolated Health related social needs details Pt states he does not need assistance. Critical Care Time Critical Care Time Critical Care Time: Yes Total Critical Care Time: 32 Attestation: Due to a high probability of clinically significant, life threatening deterioration, the patient required my highest level of preparedness to intervene emergently and I personally spent this critical care time directly and personally managing the patient. This critical care time included obtaining a history; examining the patient; pulse oximetry; ordering and review of studies; arranging urgent treatment with development of a management plan; evaluation of patient's response to treatment; frequent reassessment; and, discussions with other providers. This critical care time was performed to assess and manage the high probability of imminent, life-threatening deterioration that could result in multi-organ failure. It was exclusive of separately billable procedures and treating other p atients? Discharge Plan Disposition Patient Disposition: Admit to [facility] Condition: Serious Discharge Details Clinical Impression: Acute non-ST elevation myocardial infarction (NSTEMI) Primary Care Provider: Richard Jeffers ED Provider: Alejandra Wright Home Meds and New Rx's Prescriptions: No Action insulin aspart U-100 [Novolog FlexPen U-100 Insulin] 100 unit/mL (3 mL) insulin pen See Rx Instructions .ROUTE .COMPLEX Qty: 90 3RF Dose Instruction: INJECT 10 TO 30 UNITS BEFORE MEALS PER MEALTIME CORRECTION SCHEDULE Patient Comments: 12/13/24: pt unsure when he last took this, sometime yesterday F.S RN Rx Instructions: INJECT 10 TO 30 UNITS BEFORE MEALS PER MEALTIME CORRECTION SCHEDULE (DME) FreeStyle Bahman 2 [place] Misc See Rx Instructions .ROUTE .MEDSUPPLY Qty: 1 0RF Rx Instructions: As directed (DME) Knee Brace - STABILIZING See Rx Instructions .Route .MEDSUPPLY Qty: 1 1RF Rx Instructions: One RT KNEE STABILIZING BRACE; mirabegron [Myrbetriq] 50 mg tablet extended release 24 hr 50 mg PO DAILY Qty: 90 3RF aspirin 81 mg tablet,delayed release (DR/EC) 81 mg PO DAILY Patient Comments: 06/02/19-replaces 325mg. daily dose. [facility] discharge note. JOBY Mchugh (DME) lancets [FreeStyle Lancets] 28 gauge misc See Rx Instructions .ROUTE .MEDSUPPLY Qty: 400 3RF Rx Instructions: to test BS 4X daily for DM/E11.9 and to keep A1c at or under 7.0% (DME) pen needle, diabetic [BD Ultra-Fine Amber Pen Needle] 32 gauge x 5/32 needle 1 ea Miscellaneous QID Qty: 400 3RF Rx Instructions: E11.65 to administer insulin 4x/day (DME) Blood Glucose Test Strip See Rx Instructions .MEDSUPPLY Qty: 400 3RF Rx Instructions: As directed to check blood glucose four times daily. On insulin. Dispense covered brand. (DME) FreeStyle Bahman 2 Sensor Kit See Rx Instructions .ROUTE .MEDSUPPLY Qty: 2 11RF Rx Instructions: As directed Eliquis 5 mg tablet 5 mg PO BID Qty: 180 3RF Rx Instructions: PLEASE EXPLAIN WHAT HAPPENED TO 05/29/23 PRESCRIPTION? metoprolol tartrate 25 mg tablet 25 mg PO BID Qty: 180 3RF Rx Instructions: Heart Jardiance 25 mg tablet See Rx Instructions .ROUTE .COMPLEX Qty: 90 3RF Dose Instruction: TAKE 1 TABLET EVERY MORNING Rx Instructions: TAKE 1 TABLET EVERY MORNING rosuvastatin 40 mg tablet See Rx Instructions .ROUTE .COMPLEX Qty: 90 3RF Dose Instruction: TAKE 1 TABLET DAILY Rx Instructions: TAKE 1 TABLET DAILY cholecalciferol (vitamin D3) 1,250 mcg (50,000 unit) capsule 1,250 mcg PO QWEEK Qty: 10 0RF Rx Instructions: High dose Vit D, WEEKLY, per Nephro (unless already sent in?) fenofibrate nanocrystallized [Tricor] 145 mg tablet 145 mg PO DAILY Qty: 90 3RF semaglutide 1 mg/dose (4 mg/3 mL) pen injector 1 mg subcut QWEEK Qty: 3 5RF furosemide 40 mg tablet 40 mg PO DAILY PRN (Reason: LEG SWELLING) Qty: 90 3RF Patient Comments: 11/15/24 pt takes very 3 days RH Rx Instructions: Re-start, 04/14 x 3-5 days levothyroxine 50 mcg tablet See Rx Instructions .ROUTE .COMPLEX Qty: 90 3RF Dose Instruction: TAKE 1 TABLET DAILY FOR THYROID Rx Instructions: TAKE 1 TABLET DAILY FOR THYROID nitroglycerin 0.4 mg tablet, sublingual 0.4 mg SL Q5M PRN (Reason: chest pain) Qty: 90 3RF Rx Instructions: Take 1 at onset of chest pain, may repeat x2 q5 min if pain continues. losartan 25 mg tablet See Rx Instructions .ROUTE .COMPLEX Qty: 90 0RF Dose Instruction: TAKE 1 TABLET AT BEDTIME FOR DIABETES, AND TO PROTECT KIDNEYS Rx Instructions: TAKE 1 TABLET AT BEDTIME FOR DIABETES, AND TO PROTECT KIDNEYS ketoconazole 2 % cream 1 applic topical DAILY Qty: 120 6RF Rx Instructions: Apply to 1g to skin and toenails once daily insulin glargine [Lantus Solostar U-100 Insulin] 100 unit/mL (3 mL) insulin pen 65 unit Sub-Q QPM Rx Instructions: Or as directed for dx: E11.65 acetaminophen 500 mg tablet 1,000 mg PO Q8H PRN Qty: 90 0RF Rx Instructions: Take two tablets up to every 8 hours as needed for pain pantoprazole 40 mg tablet,delayed release (DR/EC) 40 mg PO DAILY Qty: 14 0RF Rx Instructions: Take one tablet once daily docusate sodium [Colace] 100 mg capsule 100 mg PO BID Qty: 28 0RF gabapentin 300 mg capsule 300 mg PO QHS Qty: 14 0RF Rx Instructions: Take one tablet at bedtime oxycodone 5 mg tablet 5 mg PO Q4H PRNQty: 18 0RF Rx Instructions: Take one tablet up to every 4 hours as needed for severe postoperative pain meloxicam 15 mg tablet 15 mg PO DAILY Qty: 30 1RF Rx Instructions: Take one tablet daily for pain and inflammation
[2024-12-15] VITALS (93 sets, daily range): BP systolic 110–130; BP diastolic 51–55; PULSE 49–74; RESP 14–26; TEMP 36.1–36.6; O2SAT 83–99
[2024-12-15 00:05] LABS: Lab Add On Test DONE
[2024-12-15 00:28] LABS: NT-proBNP 3526 pg/mL (<300)
[2024-12-15 00:59] LABS: Troponin I 641 ng/L (<or=76)
[2024-12-15] MEDS: Clopidogrel 300 MG TAB 600 MG PO (01:03)
--- NOTE | 2024-12-15 01:13 | W.PM.HP.N ---
Date of service: 12/15/24 Time of Service: 01:13 Assessment and Plan Assessment and plan (1) Acute non-ST elevation myocardial infarction (NSTEMI): Status: Acute Assessment and plan: - Patient noted episode of chest pain prior to arrival requiring 1 dose of sublingual nitro, pain resolved upon arrival to emergency department - Initial troponin about 400, has been increasing to about 600 - EKG without acute findings (old, previously seen ST depressions in V12 and 3) - Case discussed with [facility] cardiology, recommended aspirin, heparin drip, Plavix, admission, excepted to [facility] for cardiac catheterization with bed anticipated the afternoon of 12/15/2024 - Holding metoprolol as heart rates have been in the mid 50s - Continue statin (2) CHF (congestive heart failure), NYHA class II: Status: Chronic Assessment and plan: - History of, without acute exacerbation - Continue statin, holding metoprolol, holding Lasix at this time (3) Atrial fibrillation: Status: Chronic Assessment and plan: - Currently rate controlled, if anything mildly bradycardic as noted above - Holding metoprolol, also holding Eliquis as patient is on heparin drip as noted above (4) Diabetes mellitus with neuropathy: Status: Chronic Assessment and plan: - Holding home insulin regimen as patient is n.p.o. for anticipated procedure - Every 6 hours sliding scale insulin and glucose checks (5) Acquired hypothyroidism: Status: Chronic Assessment and plan: - Continue home Synthroid (6) History of total left knee replacement: Status: Acute Assessment and plan: - Knee replacement on December 13, 2024 - Patient initially presented because of bleeding from surgical site which has been rebandaged in the emergency department History of Present Illness History of Present Illness Chief Complaint: bleeding from surgical site Narrative: 74-year-old male with a past medical history of coronary artery disease, HFrEF, IDDM, A-fib on Eliquis, hypothyroidism, who presents to the emergency department with bleeding from his left knee replacement surgical site which was done on 12/13/2024. Patient states that he was doing well postoperatively until he experienced some bleeding from his surgical site just prior to arrival. Additionally, patient also states that he had not brief episode of substernal chest pain for which he took sublingual nitro and chest pain has improved. He denies any headache, lightheadedness, dizziness, ongoing chest pain, nausea vomiting or diarrhea. In the emergency department the patient was noted as having some bleeding from surgical site which was discussed with orthopedic surgery and resolved by emergency room provider. However, given the patient also stated he experienced an episode of chest pain he had an EKG which did not show any acute findings (though it did show old ST depressions in V1, V2, V3), normal CBC and CMP, but did have a troponin of about 400. This steadily increased up to about 600, and [facility] cardiology was consulted. They recommended loading with aspirin, Plavix, initiating heparin drip, and accepted the patient for transfer for left heart catheterization with bed availability likely in the afternoon on 12/15/2024. Which time emergency room physician paged hospitalist for admission for patient with an NSTEMI. Review of Systems All systems reviewed & are unremarkable except as noted in HPI and below PFSH All Active Problems (Updated 12/15/24 @ 01:10 by Alejandra Wright MD) Acute non-ST elevation myocardial infarction (NSTEMI) (Acute) History of total left knee replacement (Acute 12/13/24) Edema (Acute) Venous insufficiency (Acute) Pain in left foot (Acute) Plantar fasciitis of left foot (Acute) Gout due to renal impairment involving toe of right foot (Acute) Hypercalcemia (Acute) Arthritis of right knee (Acute) 40MG DEPO MEDROL 08/08/24 Peripheral sensory neuropathy (Acute) Hammer toes, bilateral (Acute) Osteoarthritis of both knees (Acute) Laxity of knee joint (Acute) Sensation of knee instability (Acute) Unstable right knee (Acute) Cardiomyopathy (Acute) Toenail deformity (Acute) Coordination of complex care (Acute) Chart Review ID several Dx/Tx needing re-assessment or Hx requiring re-evaluation ([facility] dec?)(Bi-Pap ordered 12/2023, rec'd?)(Fe Infusion)(Vit D started? re-checked?)(++) Bradycardia (Acute) Noted for some time (1/2 dose trialed in 2021 before change in PCP)(chart reviewed, 05/30/23: dizziness incompletely evaluated 2' pt leaving [facility] AMA.. ACS ruled out 01/08-12/23.. Metoprolol decreased from 25mg BID per [facility], but maybe NOT implemented? ..and missed in FU! 05/30/23, ik Diuresis (Acute) actively diuresing, good results with q 2-3 days lasix (May 2023). Hx exacerbated CHF in Fall 2022 (AMA 2' intolerance diuretics, unable to get to bathroom; poor sleep 2' noise + uncomfortable bed)((Rx if HOSPTLZATN needed .. ik, 04/2023)) Pitting edema (Chronic) improved with diuretics (mar-apr 2023) .. cont q2 days.. [ ] cardio [facility] [place] review/eval for ortho surgery Low vitamin D level (Acute) Very low, 7.9! Essential hypertension (Chronic 01/31/13) CHF (congestive heart failure), NYHA class II (Chronic) EF 40% (12/2022), decreased from 2019 .. Clinical Dx ClassII CKD (chronic kidney disease) stage 3, GFR 30-59 ml/min (Chronic) History of kidney injury (Acute) GLENYS 2' furosemide, 04/17/23, but needed for HF/Edema.. Seeing Nephrology (quarterly) Decreased dorsalis pedis pulse (Acute) per Pod, 01/13/23 (2/4) Absence of posterior tibial pulse (Acute) per Pod, 01/13/23 Coronary artery disease (Chronic) 3-vessel (LAD, LCX, RCA) Atrial fibrillation (Chronic) Apixaban 06/22/2019 Acute exacerbation of congestive heart failure (Acute) ED --> Hospitalized for diuresis, but no mosqueda & pt unable to sleep (left AMA) Cardiomegaly (Acute) CXR; ECHO 05/2019 [facility]--LVEF 53%, +LVH (mild), no significant valvular disease; stable compared with 2017 study Anemia (Chronic) Hx of iron deficiency anemia (Acute) improved with iron infusion, but did not feel better (possible iron infusions exacerb HF? ~ Mar--Apr 2023)(doubtful based on no IVF, but possible) Fatigue (Acute) Worsened per pt, affecting ADL .. not just de-conditioning? Hyperlipidemia (Chronic 08/17/12) Osteoarthritis of right knee (Acute) DEPO MEDROL 08/14/22 Arthritis of both knees (Chronic) MERRITT (obstructive sleep apnea) (Chronic) Bi-PAP 07/23/19 Diabetes mellitus with neuropathy (Chronic) Reduced monofilament 06/24/2019 Goal A1C 7.5% or less Uncontrolled diabetes mellitus (Acute) Ortho Surgery [place] < 8 (Dr. Ceja).. 10/2023 .. Goal </=7.5% Current use of insulin (Chronic) Acquired hypothyroidism (Chronic 10/28/16) High TSH, but WNL T4 (2021) .. re-checking Cervical disc disorder with myelopathy (Acute) right arm Overactive bladder (Chronic) Myrbetriq RE-started, 03/2023.. rptd improved @ 04/10/23 ov, ik .. Oxybutynin, discontinued 06/24/19 in favor of optimizing DMT2 management Unsteady gait (Acute) Dizziness incompletely evaluated 2' pt leaving [facility] AMA.. ACS ruled out 01/08-12/23.. Metoprolol decreased from 25mg BID per [facility], but maybe NOT implemented? ..and missed in FU! 05/30/23, ik Ataxia (Acute) Asymmetrical sensorineural hearing loss (Acute) Cognitive impairment (Acute) Forgetting, but using notes/print-outs .. ex(?)- helps .. Nail dystrophy (Acute) Onychomycosis (Acute) Tinea pedis (Acute) Blisters of multiple sites (Acute ~01/13/23) 01/13/23 [facility] note- Dr. Barker: Seropurulent Blisters, B/L legs.HE Metatarsalgia of left foot (Acute) Pain of right great toe (Acute) Medical History PAD (peripheral artery disease) Left, per [facility]VAL[facility] (12/2022) Stopped smoking with greater than 20 pack year [address] Screening, 07/16/20 Epiretinal membrane (~01/2023) right eye Slow heart rate Noted for some time (1/2 dose trialed in 2021 before change in PCP)(chart reviewed, 05/30/23: dizziness incompletely evaluated 2' pt leaving [facility] AMA.. ACS ruled out 01/08-12/23.. Metoprolol decreased from 25mg BID per [facility], but maybe NOT implemented? ..and missed in FU! 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 Chronic and recurrent low back pain L4-[address] scan in 1993, recurrent since then intermittently. Hypomagnesemia (06/22/14) Only 1.0 in the ER today. Pipe smoker Surgical History History of colonoscopy (~02/2023) with Mac S/P cardiac catheterization (05/31/19) 2019 History of cataract removal with insertion of prosthetic lens (11/23/14) History of umbilical hernia repair Status post appendectomy Status post coronary artery stent placement (09/26/16) One vessel for unstable angina Status post coronary artery bypass with autogenous graft, 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) 2017 Repair of umbilical hernia Fracture, Open Treatment ORIF-LEFT SYNDESMOSIS WITH TWO SCREWS Colonoscopy - IV Sedation Extraction of cataract 11/23/14; DR. GOINS; RIGHT EYE 12/07/14; DR. GOINS; LEFT EYE Appendectomy Family History Father Diabetes Dementia Neoplasm PANCREATIC Social History Smoking/Tobacco Use Status: Former Tobacco Use Quit Date: 01/02/17 Pack-years: 40 Tobacco: How many years used: 40 Quit status: has quit before Smoking risk assessment performed?: Yes Alcohol Intake: former Counseling given: Yes Counseling provided: reduce to 2 or less/day Details: 2-3 oz at a time Drug use: Never Substance use type: does not use Adopted: No Caregiver/Support person: No Foster care: No Household members: none and other Details: Cats Housing: house Number of Children: 3 number of grandchildren: 4 Communication Needs: None Do you need help understanding health information?: Rarely Pets and animals: Yes Pets and animals: cat(s) Do you think of yourself as: straight/heterosexual Current gender identity: male What is your relationship status?: How often do you talk on the phone with friends or family?: three or more times per week How often do you get together with friends or relatives?: twice per week Panel score (0-1 are the most socially isolated patients): 1 What type of physical activity do you participate in: other Details: Tredmill Duration: 45-60 minutes/day Frequency: 5-6 times per week Special isi needs: No Seatbelt use: always Helmet use: Yes Helmet use: always Drive 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 Working smoke detector in home: No Fire extinguisher in home: No Carbon monox detector in home: No Do you feel safe at home: Yes Do you feel safe in your relationship?: Yes Meds Allergies and Home Medications Allergies Allergy/AdvReac Type Severity Reaction Status Date / Time No Known Allergies Allergy Verified 12/14/24 20:43 Home Medications ?Medication ?Instructions ?Recorded ?Confirmed ?Type aspirin 81 mg tablet,delayed 81 mg PO DAILY 06/02/19 12/14/24 History release lancets 28 gauge (FreeStyle #400 ea 02/11/21 12/14/24 Rx Lancets) pen needle, diabetic 32 gauge x #400 ea 03/25/21 12/14/24 Rx /32 (BD Ultra-Fine Amber Pen Needle) flash glucose scanning reader #1 ea 11/17/21 12/14/24 Rx (FreeStyle [place]man 2 [place]) blood sugar diagnostic (Blood #400 ea 12/13/21 12/14/24 Rx Glucose Test strips) flash glucose sensor (FreeStyle #2 ea 11/27/22 12/14/24 Rx Bahman 2 Sensor kit) insulin aspart U-100 100 unit/mL See Rx Instructions .Route 05/29/23 12/14/24 Rx (3 mL) subcutaneous pen (Novolog .COMPLEX #90 mL FlexPen U-100 Insulin aspart) apixaban 5 mg tablet (Eliquis) 5 mg PO BID #180 tabs 07/22/23 12/14/24 Rx metoprolol tartrate 25 mg tablet 25 mg PO BID #180 tab-caps 07/28/23 12/14/24 Rx empagliflozin 25 mg tablet See Rx Instructions .Route 08/04/23 12/14/24 Rx (Jardiance) .COMPLEX #90 tabs rosuvastatin 40 mg tablet See Rx Instructions .Route 09/16/23 12/14/24 Rx .COMPLEX #90 tabs cholecalciferol (vitamin D3) 1,250 1,250 mcg PO QWEEK #10 caps 09/28/23 12/14/24 Rx mcg (50,000 unit) capsule Knee Brace - STABILIZING #1 ea 10/25/23 12/14/24 Rx fenofibrate nanocrystallized 145 145 mg PO DAILY #90 tab-caps 02/24/24 12/14/24 Rx mg tablet (Tricor) semaglutide 1 mg/dose (4 mg/3 mL) 1 mg (0.75 mL) subcut QWEEK #3 mL 04/14/24 12/14/24 Rx subcutaneous pen injector mirabegron 50 mg tablet,extended 50 mg PO DAILY #90 tabs 04/28/24 12/14/24 Rx release 24 hr (Myrbetriq) furosemide 40 mg tablet 40 mg PO DAILY PRN LEG SWELLING 05/03/24 12/14/24 Rx #90 tabs levothyroxine 50 mcg tablet See Rx Instructions .Route 05/03/24 12/14/24 Rx .COMPLEX #90 tabs nitroglycerin 0.4 mg sublingual 0.4 mg sublingual Q5M PRN chest 05/03/24 12/14/24 Rx tablet pain #90 tabs losartan 25 mg tablet See Rx Instructions .Route 07/06/24 12/14/24 Rx .COMPLEX #90 tabs ketoconazole 2 % topical cream 1 applic topical DAILY #120 grams 11/28/24 12/14/24 Rx insulin glargine 100 unit/mL (3 65 unit subcut QPM 12/08/24 12/14/24 History mL) subcutaneous pen (Lantus Solostar U-100 Insulin) acetaminophen 500 mg tablet 1,000 mg (2 x 500 mg) PO Q8H PRN 12/13/24 12/14/24 Rx pain #90 tabs docusate sodium 100 mg capsule 100 mg PO BID #28 caps 12/13/24 12/14/24 Rx (Colace) gabapentin 300 mg capsule 300 mg PO QHS #14 caps 12/13/24 12/14/24 Rx meloxicam 15 mg tablet 15 mg PO DAILY #30 tabs 12/13/24 12/14/24 Rx oxycodone 5 mg tablet 5 mg PO Q4H PRN #18 tabs 12/13/24 12/14/24 Rx pantoprazole 40 mg tablet,delayed 40 mg PO DAILY #14 tabs 12/13/24 12/14/24 Rx release Exam Narrative Exam Narrative: Well-appearing older gentleman lying in bed in no acute distress, ANO x 4, heart regular rhythm, lungs good auscultation bilaterally, abdomen soft, nontender, nondistended Results Labs 12/14/24 21:35 12/14/24 21:35 Labs: Laboratory Results - last 24 hr 12/14/24 12/14/24 12/15/24 21:35 23:12 00:34 WBC 13.97 H RBC 3.26 L Hgb 10.6 L Hct 31.9 L MCV 98 H MCH 32.5 MCHC 33.2 RDW 12.7 Plt Count 227 MPV 11.4 H Immature Gran % 0.5 Neutrophils % 77.6 Lymphocytes % 9.2 Monocytes % 11.1 Eosinophils % 1.3 Basophils % 0.3 Nucleated RBC % 0.0 Absolute Neutrophils 10.84 H Absolute Lymphocytes 1.29 Absolute Monocytes 1.55 H Absolute Eosinophils 0.18 Absolute Basophils 0.04 RBC Morphology Normal Sodium 136 Potassium 5.0 Chloride 105 Carbon Dioxide 23.2 Anion Gap 7.8 BUN 65 H Creatinine 2.5 H Est GFR (CKD-EPI 2020) 26.63 Glucose 328 H Calcium 9.0 Magnesium 1.5 L Total Bilirubin 0.5 AST 16 ALT 16 Alkaline Phosphatase 70 Troponin I 491 H* 533 H* 641 H* NT-Pro-B Natriuret Pep Total Protein 6.3 L Albumin 3.3 L Add-On Test Request DONE 12/15/24 23:12 WBC RBC Hgb Hct MCV MCH MCHC RDW Plt Count MPV Immature Gran % Neutrophils % Lymphocytes % Monocytes % Eosinophils % Basophils % Nucleated RBC % Absolute Neutrophils Absolute Lymphocytes Absolute Monocytes Absolute Eosinophils Absolute Basophils RBC Morphology Sodium Potassium Chloride Carbon Dioxide Anion Gap BUN Creatinine Est GFR (CKD-EPI 2020) Glucose Calcium Magnesium Total Bilirubin AST ALT Alkaline Phosphatase Troponin I NT-Pro-B Natriuret Pep 3526 H Total Protein Albumin Add-On Test Request Last Vital Signs Temp 97.1 F L 12/14/24 20:32 Pulse 53 L 12/15/24 00:44 Resp 21 12/15/24 00:44 BP 103/53 L 12/14/24 20:32 Pulse Ox 95 12/15/24 00:44 Time Spent Time spent with Patient: >75 minutes Time was spent: preparing to see the patient(eg.review tests), obtaining and/or reviewing separately otained hiistory, ordering medications,tests, procedures, referring, communicating with other health healthcare business analyst, indepentently interpreting results, counseling the patient and care coordination
[2024-12-15] MEDS: Heparin in 0.45% NaCl 25,000 UNIT/250 ML BAG 10 UNIT IVINF (01:34)
[2024-12-15] MEDS: Acetaminophen 500 MG TAB 1000 MG PO (01:43)
[2024-12-15] MEDS: oxyCODONE 5 MG TAB PO (01:44)
--- NOTE | 2024-12-15 03:11 | W.PC.ACHO ---
Registration Status: ADM IN Primary Language: Preferred Language: Vietnamese ED Information & Data Chief Complaint Recheck 12/14/24 21:42 Triage Note patient presented to the ER 12/14/24 20:32 with history having knee replacement yesterday to his left knee, state about 3 hours ago he noticed it bleeding. Patient state he had chest pain tonight prior to coming to the hospital and he had to take a nitro SL Medical / Surgical History PAD (peripheral artery disease) Stopped smoking with greater than 20 pack year history Epiretinal membrane (~01/2023) Slow heart rate Obesity Tubular adenoma of colon (~02/2023) Abrasion of skin of right lower leg Acute medial meniscus tear of right knee SARS-CoV-2 positive (~04/2021) Left ankle sprain Abnormal nuclear stress test History of nicotine dependence Tendinitis of right shoulder Sensorineural hearing loss, bilateral (02/15/15) Maisonneuve fracture of left fibula (05/07/16) Low back pain Kidney stone Erectile dysfunction of organic origin (08/07/15) Depressive disorder Bursitis of shoulder, right, adhesive (04/06/15) H/O renal calculi Umbilical hernia Chronic and recurrent low back pain Hypomagnesemia (06/22/14) Pipe smoker (Last Reviewed 12/14/24 @ 07:22 by Rohan Ceja MD) History of colonoscopy (~02/2023) S/P cardiac catheterization (05/31/19) History of cataract removal with insertion of prosthetic lens (11/23/14) History of umbilical hernia repair Status post appendectomy Status post coronary artery stent placement (09/26/16) Status post coronary artery bypass with autogenous graft, 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) Repair of umbilical hernia Fracture, Open Treatment Colonoscopy - IV Sedation Extraction of cataract Appendectomy Most Recent Vital Signs Temperature 36.4 C L 12/15/24 02:28 Temperature Source Temporal Artery Scan 12/14/24 20:32 Pulse 63 12/15/24 02:28 Pulse Rhythm Irregular 12/15/24 02:28 Respiratory Rate 16 12/15/24 02:28 Respiratory Effort Normal, Non-Labored, Short of Breath 12/15/24 02:28 Respiratory Depth Normal 12/15/24 02:28 Respiratory Pattern Normal 12/15/24 02:28 Blood Pressure 103/53 L 12/14/24 20:32 Pulse Oximetry 98 12/15/24 02:28 Oxygen Delivery Method Nasal Cannula 12/15/24 02:28 Oxygen Flow Rate 2 12/15/24 02:28 Allergies No Known Allergies Allergy (Verified 12/14/24 20:43) Active Medications Generic Name Dose Route Start Last Admin Trade Name Freq PRN Reason Stop Dose Admin Heparin Sodium/Sodium Chloride 25,000 unit in 250 mls @ 0 mls/hr 12/15/24 01:00 12/15/24 01:34 IVINF 10 mls/hr INFUSION ZEE 10 mls/hr Protocol Administration Per Protocol Sodium Chloride 0 ml 12/14/24 22:39 12/14/24 22:44 Normal Saline Flush 10 Ml Syr IVP 10 ml PRN PRN Administration Sodium Chloride 50 ml 12/14/24 22:45 12/14/24 22:44 Normal Saline - Diluent 50 Ml Vial IJ 50 ml DIRECTED ZEE Administration IV IV Catheter Type [Right Wrist] Saline Lock IV Catheter Gauge [Right Wrist 20 ] Diet Orders Category Date Time Status Nothing Per Oral [DIET] Nutrition 12/15/24 02:51 Active Diagnostics 12/15/24 12/15/24 12/15/24 Range/Units 23:12 05:55 05:35 WBC Pending (4.4-10.8) 10^3/uL RBC Pending (4.36-5.78) 10^6/uL Hgb Pending (13.5-17.5) g/dL Hct Pending (40.0-50.0) % MCV Pending (80-95) fL MCH Pending (27.0-33.0) pg MCHC Pending (32.0-36.0) % RDW Pending (11.8-14.1) % Plt Count Pending (130-400) 10^3/uL MPV Pending (8.0-11.0) fL Immature Gran % % Neutrophils % % Lymphocytes % % Monocytes % % Eosinophils % % Basophils % % Nucleated RBC % (0.0-0.3) % Absolute Neutrophils (1.2-6.7) 10^3/uL Absolute Lymphocytes (1.2-3.4) 10^3/uL Absolute Monocytes (0.1-0.8) 10^3/uL Absolute Eosinophils (0.0-0.7) 10^3/uL Absolute Basophils (0.0-0.2) 10^3/uL RBC Morphology APTT Pending Sodium Pending (136-145) mmol/L Potassium Pending (3.5-5.1) mmol/L Chloride Pending (98-107) mmol/L Carbon Dioxide Pending (21.0-32.0) mmol/L Anion Gap Pending (3-11) mmol/L BUN Pending (7-18) mg/dL Creatinine Pending (0.70-1.30) mg/dL Est GFR (CKD-EPI 2020) Pending (mL/min/1.73m2) Glucose Pending (74-106) mg/dL Calcium Pending (8.5-10.1) mg/dL Magnesium Pending (1.8-2.4) mg/dL Total Bilirubin (0.2-1.0) mg/dL AST (15-37) U/L ALT (16-63) U/L Alkaline Phosphatase (46-116) U/L Troponin I Pending (<or=76) ng/L NT-Pro-B Natriuret Pep 3526 H (<300) pg/mL Total Protein (6.4-8.2) g/dL Albumin (3.4-5.0) g/dL Add-On Test Request 12/15/24 12/15/24 12/15/24 Range/Units 04:11 03:00 00:34 WBC (4.4-10.8) 10^3/uL RBC (4.36-5.78) 10^6/uL Hgb (13.5-17.5) g/dL Hct (40.0-50.0) % MCV (80-95) fL MCH (27.0-33.0) pg MCHC (32.0-36.0) % RDW (11.8-14.1) % Plt Count (130-400) 10^3/uL MPV (8.0-11.0) fL Immature Gran % % Neutrophils % % Lymphocytes % % Monocytes % % Eosinophils % % Basophils % % Nucleated RBC % (0.0-0.3) % Absolute Neutrophils (1.2-6.7) 10^3/uL Absolute Lymphocytes (1.2-3.4) 10^3/uL Absolute Monocytes (0.1-0.8) 10^3/uL Absolute Eosinophils (0.0-0.7) 10^3/uL Absolute Basophils (0.0-0.2) 10^3/uL RBC Morphology APTT Sodium (136-145) mmol/L Potassium (3.5-5.1) mmol/L Chloride (98-107) mmol/L Carbon Dioxide (21.0-32.0) mmol/L Anion Gap (3-11) mmol/L BUN (7-18) mg/dL Creatinine (0.70-1.30) mg/dL Est GFR (CKD-EPI 2020) (mL/min/1.73m2) Glucose (74-106) mg/dL Calcium (8.5-10.1) mg/dL Magnesium (1.8-2.4) mg/dL Total Bilirubin (0.2-1.0) mg/dL AST (15-37) U/L ALT (16-63) U/L Alkaline Phosphatase (46-116) U/L Troponin I Pending Pending 641 H* (<or=76) ng/L NT-Pro-B Natriuret Pep (<300) pg/mL Total Protein (6.4-8.2) g/dL Albumin (3.4-5.0) g/dL Add-On Test Request 12/14/24 12/14/24 Range/Units 23:12 21:35 WBC 13.97 H (4.4-10.8) 10^3/uL RBC 3.26 L (4.36-5.78) 10^6/uL Hgb 10.6 L (13.5-17.5) g/dL Hct 31.9 L (40.0-50.0) % MCV 98 H (80-95) fL MCH 32.5 (27.0-33.0) pg MCHC 33.2 (32.0-36.0) % RDW 12.7 (11.8-14.1) % Plt Count 227 (130-400) 10^3/uL MPV 11.4 H (8.0-11.0) fL Immature Gran % 0.5 % Neutrophils % 77.6 % Lymphocytes % 9.2 % Monocytes % 11.1 % Eosinophils % 1.3 % Basophils % 0.3 % Nucleated RBC % 0.0 (0.0-0.3) % Absolute Neutrophils 10.84 H (1.2-6.7) 10^3/uL Absolute Lymphocytes 1.29 (1.2-3.4) 10^3/uL Absolute Monocytes 1.55 H (0.1-0.8) 10^3/uL Absolute Eosinophils 0.18 (0.0-0.7) 10^3/uL Absolute Basophils 0.04 (0.0-0.2) 10^3/uL RBC Morphology Normal APTT Sodium 136 (136-145) mmol/L Potassium 5.0 (3.5-5.1) mmol/L Chloride 105 (98-107) mmol/L Carbon Dioxide 23.2 (21.0-32.0) mmol/L Anion Gap 7.8 (3-11) mmol/L BUN 65 H (7-18) mg/dL Creatinine 2.5 H (0.70-1.30) mg/dL Est GFR (CKD-EPI 2020) 26.63 (mL/min/1.73m2) Glucose 328 H (74-106) mg/dL Calcium 9.0 (8.5-10.1) mg/dL Magnesium 1.5 L (1.8-2.4) mg/dL Total Bilirubin 0.5 (0.2-1.0) mg/dL AST 16 (15-37) U/L ALT 16 (16-63) U/L Alkaline Phosphatase 70 (46-116) U/L Troponin I 533 H* 491 H* (<or=76) ng/L NT-Pro-B Natriuret Pep (<300) pg/mL Total Protein 6.3 L (6.4-8.2) g/dL Albumin 3.3 L (3.4-5.0) g/dL Add-On Test Request DONE [id number] Documentation Fingerstick Glucose Start: 12/15/24 02:51 Freq: .Q6H Status: Active Protocol: Activity Type Activity Date Activity User E-sign Co-sign Detail Recorded Client Recorded Date Recorded By Document 12/15/24 03:01 BKG DAEMON(3) [id number] 12/15/24 03:02 BKG DAEMON(4) Intake and Output - 24 Hour Total 12/14/24 20:30 thru 12/15/24 02:28 Intake Total 500 Output Total 625 Balance -125 Weight 135.5 kg Intake: IV 500 Output: Urine 625 Other: Urine Appearance Clear # Voids 2 Falls Risk Assessment History of Falls Previous History 12/15/24 02:28 Contributing Factors Impairments 12/15/24 02:28 Ambulatory Aids Uses ambulatory device 12/15/24 02:28 Tubes/Lines With any additional score 12/15/24 02:28 Gait Evaluation No gait disturbance 12/14/24 21:34 Cognition No cognitive impairment 12/15/24 02:28 Fall Total Score 53 12/15/24 02:28 Level of Risk High Risk 12/15/24 02:28 Problems (Last Reviewed 12/14/24 @ 07:22 by Rohan Ceja MD) Acute non-ST elevation myocardial infarction (NSTEMI) (Acute) History of total left knee replacement (Acute 12/13/24) CHF (congestive heart failure), NYHA class II (Chronic) Atrial fibrillation (Chronic) Diabetes mellitus with neuropathy (Chronic) Acquired hypothyroidism (Chronic 10/28/16) v v v v v v v v v Sending and/or Receiving Nurses: Please use comment section below to note any information pertinent to the patient hand-off not included above. Information / Comments: report received from Amanda Engle RN [id number]
[2024-12-15 03:45] LABS: Troponin I 737 ng/L (<or=76)
[2024-12-15 05:18] LABS: Troponin I 771 ng/L (<or=76)
[2024-12-15] MEDS: Levothyroxine 50 MCG TAB PO (06:27)
[2024-12-15 06:47] LABS: HCT 31.0 % (40.0-50.0); HGB 10.3 g/dL (13.5-17.5); MCH 32.7 pg (27.0-33.0); MCHC 33.2 % (32.0-36.0); MCV 98 fL (80-95); MPV 11.8 fL (8.0-11.0); Platelet Count 223 10^3/uL (130-400); RBC 3.15 10^6/uL (4.36-5.78); RDW 13.0 % (11.8-14.1); RDW-SD 46.3 fL; WBC 11.49 10^3/uL (4.4-10.8)
[2024-12-15 06:53] LABS: PTT Activated 69.5 sec (20.6-30.2)
[2024-12-15] MEDS: Acetaminophen 325 MG TAB 650 MG PO ×2 (08:29→16:31)
[2024-12-15 08:55] LABS: Anion Gap 13.4 mmol/L (3-11); BUN 62 mg/dL (7-18); CO2 20.6 mmol/L (21.0-32.0); Calcium 9.3 mg/dL (8.5-10.1); Chloride 108 mmol/L (98-107); Estimated GFR 32.83 (mL/min/1.73m2); Glucose 224 mg/dL (74-106); Magnesium 1.8 mg/dL (1.8-2.4); Potassium 4.8 mmol/L (3.5-5.1); Sodium 142 mmol/L (136-145)
[2024-12-15 09:00] LABS: Troponin I 736 ng/L (<or=76)
--- NOTE | 2024-12-15 09:43 | INITIAL_ITS ---
Date of service: 12/15/24 Time of Service: 09:57 Care Management Initial Assmt Initial Assessment Reason for Hospitalization: NSTEMI Functional Status/Living Situation Patient Presentation: Olaf, who prefers to be referred to as Minh, was lying in bed and awake at the time TAYLOR arrived He presented to the Emergency Department yesterday evening for evaluation of bleeding from his left knee?site of a recent total knee replacement?and for an episode of chest pain that occurred earlier this evening. Minh was previously discharged from the hospital on December 14, 2024, following a Left Total Knee Replacement performed at [facility] on December 13, 2024. Minh was pleasant and willing to engage in conversation. He shared that he returned to the hospital due to what he described as uncontrolled bleeding from his surgical site. Minh currently resides alone in [place] and stated that his family lives nearby. Since his recent hospital stay, he reports that his children have been very supportive. Minh described himself as independent at baseline, including with driving and daily tasks. Today, Minh reported feeling hungry but is currently NPO. Per report, [facility] Cardiology has been consulted; patient has been accepted for transfer and is currently awaiting bed placement. Outpatient physical therapy was recommended following his previous admission. Minh denies any current involvement with other human service organizations. CM introduced the topic of Advance Directives; however, Minh declined to review or complete them at this time. He expressed he would rather save them for a rainy day. CM will continue to follow. 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.) Instrumental Activities of Daily Living (ADLs): Independent Medications Medication Management: No Issues/Barriers identified Physical Functioning/Mobility Assistive Device: FWW currently, at baseline he ambulates independently Advance Directives Advance Directives: Do you have an Advance Directive: N , 09:22 AD On File at [facility]: N 12/10/22, 09:22 Date Asked 12/14/24 12/14/24, 20:31 AD Date Reviewed COLST On File at [facility] COLST Date Scanned Code Status Resuscitation Status Full Code Portal Pt does not currently have a portal and education provided: Yes Insurance Coverage/Financial Issues Insurance: Medicare Part A & B - [id number] 4 Life MCR Supplement - [id number] Care Team Visit Care Team Role Provider Type Caleb Bowman MD MD [facility] STAFF PHYSICIAN Richard Jeffers Primary Care Provider NON-[facility] STAFF PHYSICIAN Alejandra Wright MD Emergency Provider [facility] STAFF PHYSICIAN Doe Martin MD Admit Provider [facility] STAFF PHYSICIAN Attending Provider Discharge Potential Discharge Needs: PCP F/U Appt Anticipated Barriers to Discharge: Medical Status Patient/Family Education Needs: Review discharge instructions, discuss Ask Me Three Transportation: Private vehicle Plan: Minh has been accepted for a transfer to [facility] and is awaiting a bed. His transfer will be coordinated by the nursing injection molding supervisor. CM will continue to follow. Social Determinants of Health Screening Will the Patient Participate in the Screening?: Declined to provide PFSH All Active Problems (Updated 12/15/24 @ 01:10 by Alejandra Wright MD) Acute non-ST elevation myocardial infarction (NSTEMI) (Acute) History of total left knee replacement (Acute 12/13/24) Edema (Acute) Venous insufficiency (Acute) Pain in left foot (Acute) Plantar fasciitis of left foot (Acute) Gout due to renal impairment involving toe of right foot (Acute) Hypercalcemia (Acute) Arthritis of right knee (Acute) 40MG DEPO MEDROL 08/08/24 Peripheral sensory neuropathy (Acute) Hammer toes, bilateral (Acute) Osteoarthritis of both knees (Acute) Laxity of knee joint (Acute) Sensation of knee instability (Acute) Unstable right knee (Acute) Cardiomyopathy (Acute) Toenail deformity (Acute) Coordination of complex care (Acute) Chart Review ID several Dx/Tx needing re-assessment or Hx requiring re- evaluation ([facility]/BB dec?)(Bi-Pap ordered 12/2023, rec'd?)(Fe Infusion)(Vit D started? re-checked?)(++) Bradycardia (Acute) Noted for some time (1/2 dose trialed in 2021 before change in PCP)(chart reviewed, 05/30/23: dizziness incompletely evaluated 2' pt leaving [facility] AMA.. ACS ruled out 01/08-12/23.. Metoprolol decreased from 25mg BID per [facility], but maybe NOT implemented? ..and missed in FU! 05/30/23, sung Diuresis (Acute) actively diuresing, good results with q 2-3 days lasix (May 2023). Hx exacerbated CHF in Fall 2022 (AMA 2' intolerance diuretics, unable to get to bathroom; poor sleep 2' noise + uncomfortable bed)((Rx if HOSPTLZATN needed .. ik, 04/2023)) Pitting edema (Chronic) improved with diuretics (mar-apr 2023) .. cont q2 days.. [ ] cardio [facility] review/eval for ortho surgery Low vitamin D level (Acute) Very low, 7.9! Essential hypertension (Chronic 01/31/13) CHF (congestive heart failure), NYHA class II (Chronic) EF 40% (12/2022), decreased from 2019 .. Clinical Dx ClassII CKD (chronic kidney disease) stage 3, GFR 30-59 ml/min (Chronic) History of kidney injury (Acute) GLENYS 2' furosemide, 04/17/23, but needed for HF/Edema.. Seeing Nephrology (quarterly) Decreased dorsalis pedis pulse (Acute) per Pod, 01/13/23 (2/4) Absence of posterior tibial pulse (Acute) per Pod, 01/13/23 Coronary artery disease (Chronic) 3-vessel (LAD, LCX, RCA) Atrial fibrillation (Chronic) Apixaban 06/22/2019 Acute exacerbation of congestive heart failure (Acute) ED --> Hospitalized for diuresis, but no mosqueda & pt unable to sleep (left AMA) Cardiomegaly (Acute) CXR; ECHO 05/2019 [facility]--LVEF 53%, +LVH (mild), no significant valvular disease; stable compared with 2017 study Anemia (Chronic) Hx of iron deficiency anemia (Acute) improved with iron infusion, but did not feel better (possible iron infusions exacerb HF? ~ -Apr 2023)(doubtful based on no IVF, but possible) Fatigue (Acute) Worsened per pt, affecting ADL .. not just de-conditioning? Hyperlipidemia (Chronic 08/17/12) Osteoarthritis of right knee (Acute) DEPO MEDROL 08/14/22 Arthritis of both knees (Chronic) MERRITT (obstructive sleep apnea) (Chronic) Bi-PAP 07/23/19 Diabetes mellitus with neuropathy (Chronic) Reduced monofilament 06/24/2019 Goal A1C 7.5% or less Uncontrolled diabetes mellitus (Acute) Ortho Surgery OK < 8 (Dr. Ceja).. 10/2023 .. Goal </=7.5% Current use of insulin (Chronic) Acquired hypothyroidism (Chronic 10/28/16) High TSH, but WNL T4 (2021) .. re-checking Cervical disc disorder with myelopathy (Acute) right arm Overactive bladder (Chronic) Myrbetriq RE-started, 03/2023.. rptd improved @ 04/10/23 ov, ik .. Oxybutynin, discontinued 06/24/19 in favor of optimizing DMT2 management Unsteady gait (Acute) Dizziness incompletely evaluated 2' pt leaving [facility] AMA.. ACS ruled out 01/08- 12/23.. Metoprolol decreased from 25mg BID per [facility], but maybe NOT implemented? ..and missed in FU! 05/30/23, ik Ataxia (Acute) Asymmetrical sensorineural hearing loss (Acute) Cognitive impairment (Acute) Forgetting, but using notes/print-outs .. ex(?)- helps .. Nail dystrophy (Acute) Onychomycosis (Acute) Tinea pedis (Acute) Blisters of multiple sites (Acute ~01/13/23) 01/13/23 [facility] note- Dr. Barker: Seropurulent Blisters, B/L legs.HE Metatarsalgia of left foot (Acute) Pain of right great toe (Acute) Medical History PAD (peripheral artery disease) Left, per OSVALDO (12/2022) Stopped smoking with greater than 20 pack year [address] Screening, 07/16/20 Epiretinal membrane (~01/2023) right eye Slow heart rate Noted for some time (1/2 dose trialed in 2021 before change in PCP)(chart reviewed, 05/30/23: dizziness incompletely evaluated 2' pt leaving [facility] AMA.. ACS ruled out 01/08-12/23.. Metoprolol decreased from 25mg BID per [facility], but maybe NOT implemented? ..and missed in FU! 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 Chronic and recurrent low back pain L4-[address] scan in 1993, recurrent since then intermittently. Hypomagnesemia (06/22/14) Only 1.0 in the ER today. Pipe smoker Surgical History History of colonoscopy (~02/2023) with Mac S/P cardiac catheterization (05/31/19) 2019 History of cataract removal with insertion of prosthetic lens (11/23/14) History of umbilical hernia repair Status post appendectomy Status post coronary artery stent placement (09/26/16) One vessel for unstable angina Status post coronary artery bypass with autogenous graft, 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) 2017 Repair of umbilical hernia Fracture, Open Treatment ORIF-LEFT SYNDESMOSIS WITH TWO SCREWS Colonoscopy - IV Sedation Extraction of cataract 11/23/14; DR. GOINS; RIGHT EYE 12/07/14; DR. OGINS; LEFT EYE Appendectomy Family History Father Diabetes Dementia Neoplasm PANCREATIC Social History Smoking/Tobacco Use Status: Former Tobacco Use Quit Date: 01/02/17 Pack-years: 40 Tobacco: How many years used: 40 Quit status: has quit before Smoking risk assessment performed?: Yes Alcohol Intake: former Counseling given: Yes Counseling provided: reduce to 2 or less/day Details: 2-3 oz at a time Drug use: Never Substance use type: does not use Adopted: No Caregiver/Support person: No Foster care: No Household members: none and other Details: Cats Housing: house Number of Children: 3 number of grandchildren: 4 Communication Needs: None Do you need help understanding health information?: Rarely Pets and animals: Yes Pets and animals: cat(s) Do you think of yourself as: straight/heterosexual Current gender identity: male What is your relationship status?: How often do you talk on the phone with friends or family?: three or more times per week How often do you get together with friends or relatives?: twice per week Panel score (0-1 are the most socially isolated patients): 1 What type of physical activity do you participate in: other Details: Tredmill Duration: 45-60 minutes/day Frequency: 5-6 times per week Special isi needs: No Seatbelt use: always Helmet use: Yes Helmet use: always Drive intox 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 recycling collections driver: No Working smoke detector in home: No Fire extinguisher in home: No Carbon monox detector in home: No Do you feel safe at home: Yes Do you feel safe in your relationship?: Yes Readmission Within the Past 30 Days Yes or No: Yes Date of First Admission Date of 1st Admission: 12/13/24 Date of this Admission Date of Admission: 12/15/24 This admission was: Through ED Office Visit Since 1st Admission Have you seen your PCP in the office since discharge?: No Had an appointment Been Scheduled?: No Speicalist Appointments Have you seen any other specialist since your 1st Admission?: No I. Interview patient and/or Family Difficulty reaching your doctor or getting an office appt?: No Have you had trouble purchasing/ or taking medication?: No Have you had trouble with getting meals at home?: No Did you feel ready for discharge when you left the last time: Yes Were services received that you thought were set up on disch: Yes Did you call your physician beore you came to the ED?: No Did your physician tell you to come in?: No How do you think you became sick enough to come back?: Im not sure, it just happened If the patient had a VNA ordered Did the patient have a VNA order?: No ED visits How many ED visits in the past 12 months: 4 Assessment for Readmission Summary of readmission circumstances, based upon interviews: The patient acquired the need for a cardiac cath.
[2024-12-15] MEDS: MORPHine 4 MG/ML SYR IVP (10:47)
--- NOTE | 2024-12-15 11:21 | PHA.REVIEW2 ---
Pharmacy Admission Review Admission Clinical Review Admission Pharmacy Review: Acute non-ST elevation myocardial infarction (NSTEMI) (Acute) History of total left knee replacement (Acute 12/13/24) No Known Allergies Allergy (Verified 12/14/24 20:43) Resuscitation Status Full Code Height 5 ft 10 in Weight 135.5 kg Comments Comments/Follow Ups: [facility] transfer pending bed availability Pharmacy Admission Review Renal Dosing Renal Dosing: BUN 62 mg/dL (7-18) H 12/15/24 06:08 Creatinine 2.1 mg/dL (0.70-1.30) H 12/15/24 06:08 Medications needing adjustments: Reviewed (CrCl 44 mL/min, BUN decreased from 65 and SCr decreased from 2.5) List of meds needing interventions: Current medications are okay Anticoagulation Anticoagulation: Hgb 10.3 g/dL (13.5-17.5) L 12/15/24 06:08 Hct 31.0 % (40.0-50.0) L 12/15/24 06:08 Plt Count 223 10^3/uL (130-400) 12/15/24 06:08 Creatinine 2.1 mg/dL (0.70-1.30) H 12/15/24 06:08 Therapeutic Anticoagulation: Reviewed (NSTEMI, last aPTT 69.5 at 0608 next level pending at 1200) Medications: Heparin (@ 10ml/hr) Relevant Labs Relevant Labs: Sodium 142 mmol/L (136-145) 12/15/24 06:08 Potassium 4.8 mmol/L (3.5-5.1) 12/15/24 06:08 Chloride 108 mmol/L (98-107) H 12/15/24 06:08 Magnesium 1.8 mg/dL (1.8-2.4) 12/15/24 06:08 Electrolytes, C-Reactive P, ESR: Reviewed DM Control DM Control: Glucose 224 mg/dL (74-106) H 12/15/24 06:08 DM Control: Intervened (dextrose syringe ZEE --> PRN) Insulin Dosing, Diabetic Medication: No orders at this time for insulin coverage. Has aspart and glargine on home med list, provider is looking into it. Order for dextrose syringe was put in as q6h scheduled, changed to PRN for hypoglycemia (provider aware) Cardiac Review Cardiac Review: Troponin I 736 ng/L (<or=76) H* 771 ng/L (<or=76) H* 737 ng/L (<or=76) H* 641 ng/L (<or=76) H* 553 ng/L (<or=76) H* 491 ng/L (<or=76) H* 12/15/24 06:08 12/15/24 04:03 12/15/24 03:00 12/15/24 00:34 12/14/24 23:12 12/14/24 21:35 NT-Pro-B Natriuret Pep 3526 pg/mL (<300) H 12/15/24 23:12 Blood Pressure 110/54 0710 Blood Pressure 125/51 0240 BP, HR, EF%: Reviewed (HR WNL, oxygen flow rate = 1.5) QTc Review QTc: Reviewed (report pending from 12/14/24) IV to PO Switch IV Medications: Reviewed (heparin) Home Meds Home Med List reviewed: Reviewed Relevent Home Meds Not ordered & why?: metoprolol (on hold per H+P), furosemide (on hold per H+P), Eliquis (on hold per H+P), aspirin, docusate, Jardiance, vitamin D2, fenofibrate, insulin aspart, insulin glargine, ketoconazole cream, losartan, meloxicam, Myrbetriq, nitroglycerin (PRN), oxycodone (PRN), pantoprazole and Ozempic Provider is looking into patients insulin as none is ordered at this time. Patient is NPO pending transfer and possible procedure at [facility] per H+P. Current Meds Current Medication Order Review: Intervened Comments: Changed dextrose syringe from scheduled to PRN (provider aware) Added IV admission order Comments Comments/Follow Ups: [facility] transfer pending bed availability
[2024-12-15 12:58] LABS: PTT Activated 63.6 sec (20.6-30.2)
--- NOTE | 2024-12-15 15:33 | DSE_ITS ---
Date of service: 12/15/24 Time of Service: 15:33 DS: Diagnosis Discharge Diagnosis (1) Acute non-ST elevation myocardial infarction (NSTEMI): Status: Acute Asessment and Plan: - Patient noted episode of chest pain prior to arrival requiring 1 dose of sublingual nitro, pain resolved upon arrival to emergency department - Initial troponin about 400, has been increasing to about 600 - EKG without acute findings (old, previously seen ST depressions in V12 and 3) - Case discussed with [facility] cardiology, recommended aspirin, heparin drip, Plavix, admission, excepted to [facility] for cardiac catheterization with bed anticipated the afternoon of 12/15/2024 - Holding metoprolol as heart rates have been in the mid 50s - Continue statin (2) CHF (congestive heart failure), NYHA class II: Status: Chronic Asessment and Plan: - History of, without acute exacerbation - Continue statin, holding metoprolol, holding Lasix at this time (3) Atrial fibrillation: Status: Chronic Asessment and Plan: - Currently rate controlled, if anything mildly bradycardic as noted above - Holding metoprolol, also holding Eliquis as patient is on heparin drip as noted above (4) Diabetes mellitus with neuropathy: Status: Chronic Asessment and Plan: - Holding home insulin regimen as patient is n.p.o. for anticipated procedure - Every 6 hours sliding scale insulin and glucose checks (5) Acquired hypothyroidism: Status: Chronic Asessment and Plan: - Continue home Synthroid (6) History of total left knee replacement: Status: Acute Asessment and Plan: - Knee replacement on December 13, 2024 - Patient initially presented because of bleeding from surgical site which has been rebandaged in the emergency department Discharge Plan Disposition Patient Disposition: Transfer-Acute Inpatient Care Specific Acute In Facility: [facility] Condition: Stable Discharge Details Reason For Visit: NSTEMI Admit Date/Time: 12/15/24 01:12 Admit Provider: Doe Martin Attending Provider: Doe Martin Primary Care Provider: Richard Jeffers Hospital Course Hospital Course: Olaf Still (Steve) is a 74 year old man presenting at [facility] on December 14 with chest pain and with bleeding s/p December 13 left total knee replacement. He was found to have mild hypoxemia SpO2 90% with elevated troponin 491. He has an GLENYS with creatinine 2.5 against baseline 1.6. Mild anemia with hemoglobin 10.6. [facility] cardiology was consulted and the patient was accepted for procedure later in the day by Dr Harvey. Home Meds and New Rx's Prescriptions: Continued insulin aspart U-100 [Novolog FlexPen U-100 Insulin] 100 unit/mL (3 mL) insulin pen See Rx Instructions .ROUTE .COMPLEX Qty: 90 3RF Dose Instruction: INJECT 10 TO 30 UNITS BEFORE MEALS PER MEALTIME CORRECTION SCHEDULE Patient Comments: 12/13/24: pt unsure when he last took this, sometime yesterday F.S RN Rx Instructions: INJECT 10 TO 30 UNITS BEFORE MEALS PER MEALTIME CORRECTION SCHEDULE (DME) FreeStyle Bahman 2 [place] Misc See Rx Instructions .ROUTE .MEDSUPPLY Qty: 1 0RF Rx Instructions: As directed (DME) Knee Brace - STABILIZING See Rx Instructions .Route .MEDSUPPLY Qty: 1 1RF Rx Instructions: One RT KNEE STABILIZING BRACE; mirabegron [Myrbetriq] 50 mg tablet extended release 24 hr 50 mg PO DAILY Qty: 90 3RF aspirin 81 mg tablet,delayed release (DR/EC) 81 mg PO DAILY Patient Comments: 06/02/19-replaces 325mg. daily dose. [facility] discharge note. JOBY Mchugh (DME) lancets [FreeStyle Lancets] 28 gauge misc See Rx Instructions .ROUTE .MEDSUPPLY Qty: 400 3RF Rx Instructions: to test BS 4X daily for DM/E11.9 and to keep A1c at or under 7.0% (DME) pen needle, diabetic [BD Ultra-Fine Amber Pen Needle] 32 gauge x 5/32 needle 1 ea Miscellaneous QID Qty: 400 3RF Rx Instructions: E11.65 to administer insulin 4x/day (DME) Blood Glucose Test Strip See Rx Instructions .MEDSUPPLY Qty: 400 3RF Rx Instructions: As directed to check blood glucose four times daily. On insulin. Dispense covered brand. (DME) FreeStyle Bahman 2 Sensor Kit See Rx Instructions .ROUTE .MEDSUPPLY Qty: 2 11RF Rx Instructions: As directed Eliquis 5 mg tablet 5 mg PO BID Qty: 180 3RF Rx Instructions: PLEASE EXPLAIN WHAT HAPPENED TO 1/26/24 PRESCRIPTION? metoprolol tartrate 25 mg tablet 25 mg PO BID Qty: 180 3RF Rx Instructions: Heart Jardiance 25 mg tablet See Rx Instructions .ROUTE .COMPLEX Qty: 90 3RF Dose Instruction: TAKE 1 TABLET EVERY MORNING Rx Instructions: TAKE 1 TABLET EVERY MORNING rosuvastatin 40 mg tablet See Rx Instructions .ROUTE .COMPLEX Qty: 90 3RF Dose Instruction: TAKE 1 TABLET DAILY Rx Instructions: TAKE 1 TABLET DAILY fenofibrate nanocrystallized [Tricor] 145 mg tablet 145 mg PO DAILY Qty: 90 3RF semaglutide 1 mg/dose (4 mg/3 mL) pen injector 1 mg subcut QWEEK Qty: 3 5RF furosemide 40 mg tablet 40 mg PO DAILY PRN (Reason: LEG SWELLING) Qty: 90 3RF Patient Comments: 11/15/24 pt takes very 3 days RH Rx Instructions: Re-start, 04/14 x 3-5 days levothyroxine 50 mcg tablet See Rx Instructions .ROUTE .COMPLEX Qty: 90 3RF Dose Instruction: TAKE 1 TABLET DAILY FOR THYROID Rx Instructions: TAKE 1 TABLET DAILY FOR THYROID nitroglycerin 0.4 mg tablet, sublingual 0.4 mg SL Q5M PRN (Reason: chest pain) Qty: 90 3RF Rx Instructions: Take 1 at onset of chest pain, may repeat x2 q5 min if pain continues. losartan 25 mg tablet See Rx Instructions .ROUTE .COMPLEX Qty: 90 0RF Dose Instruction: TAKE 1 TABLET AT BEDTIME FOR DIABETES, AND TO PROTECT KIDNEYS Rx Instructions: TAKE 1 TABLET AT BEDTIME FOR DIABETES, AND TO PROTECT KIDNEYS ketoconazole 2 % cream 1 applic topical DAILY Qty: 120 6RF Rx Instructions: Apply to 1g to skin and toenails once daily insulin glargine [Lantus Solostar U-100 Insulin] 100 unit/mL (3 mL) insulin pen 65 unit Sub-Q QPM Rx Instructions: Or as directed for dx: E11.65 acetaminophen 500 mg tablet 1,000 mg PO Q8H PRN Qty: 90 0RF Rx Instructions: Take two tablets up to every 8 hours as needed for pain pantoprazole 40 mg tablet,delayed release (DR/EC) 40 mg PO DAILY Qty: 14 0RF Rx Instructions: Take one tablet once daily docusate sodium [Colace] 100 mg capsule 100 mg PO BID Qty: 28 0RF gabapentin 300 mg capsule 300 mg PO QHS Qty: 14 0RF Rx Instructions: Take one tablet at bedtime oxycodone 5 mg tablet 5 mg PO Q4H PRNQty: 18 0RF Rx Instructions: Take one tablet up to every 4 hours as needed for severe postoperative pain meloxicam 15 mg tablet 15 mg PO DAILY Qty: 30 1RF Rx Instructions: Take one tablet daily for pain and inflammation ergocalciferol (vitamin D2) [Vitamin D2] 1,250 mcg (50,000 unit) capsule 1,250 mcg PO .WEEKLY Discharge Instructions Activity:: Activity as Tolerated Equipment/Supplies:: No Equipment Needed Diet:: As Tolerated Discharge Orders Discharge Orders: Discharge Order (Routine); Ordered 12/15/24 Ordered By: Caleb Bowman DS: Summary Time Spent with Patient providing and/or coordinating discharge services: Greater than 30 minutes Status at Discharge Functional status at discharge: independent ambulation Overall status at discharge: patient is back to baseline Mental Status: mental status grossly normal Speech and Movement: speech and movement normal Mood: congruent mood Affect: normal affect Quality:SDOH Health Related Social Needs: Health related social needs lonely/isolated Health related social needs details Pt states he does not need assistance. Exam Psych Mental Status: mental status grossly normal Speech and Movement: speech and movement normal Mood: congruent mood Affect: normal affect DS: Data Vitals/I&O Vitals and I&O: Vital Signs Temperature 36.3 C L 12/15/24 11:32 Temperature Source Skin 12/15/24 11:32 Pulse 70 12/15/24 11:32 Pulse Rhythm Irregular 12/15/24 02:28 Respiratory Rate 18 12/15/24 11:32 Respiratory Effort Normal, Non-Labored, Short of Breath 12/15/24 02:28 Respiratory Depth Normal 12/15/24 02:28 Respiratory Pattern Normal 12/15/24 02:28 Blood Pressure 130/55 L 12/15/24 11:32 Blood Pressure Mean 80 12/15/24 11:32 Pulse Oximetry 97 12/15/24 11:32 Oxygen Delivery Method Room Air 12/15/24 11:32 Oxygen Flow Rate 0 12/15/24 11:32 Pain Level 7 12/15/24 11:32 Comment Left knee pain. 12/15/24 07:10 Intake & Output 12/14/24 12/15/24 12/15/24 23:59 11:59 23:59 Intake Total 610 / 610 Output Total 1725 / 2375 650 / 2375 Balance -1115 / -1765 -650 / -1765 Weight 129.274 kg 135.5 kg Intake: IV 610 / 610 Output: Urine 1725 / 2375 650 / 2375 Other: Urine Color Yellow Yellow Urine Appearance Clear Clear Urine Odor None Normal Comment void in urinal at prompt # Voids 2 Data Completed and Pending Labs on day of discharge: Labs from last 24 hours 12/15/24 12/15/24 12/15/24 23:12 12:28 06:08 WBC 11.49 H RBC 3.15 L Hgb 10.3 L Hct 31.0 L MCV 98 H MCH 32.7 MCHC 33.2 RDW 13.0 Plt Count 223 MPV 11.8 H Immature Gran % Neutrophils % Lymphocytes % Monocytes % Eosinophils % Basophils % Nucleated RBC % Absolute Neutrophils Absolute Lymphocytes Absolute Monocytes Absolute Eosinophils Absolute Basophils RBC Morphology APTT 63.6 H 69.5 H Sodium 142 Potassium 4.8 Chloride 108 H Carbon Dioxide 20.6 L Anion Gap 13.4 H BUN 62 H Creatinine 2.1 H Est GFR (CKD-EPI 2020) 32.83 Glucose 224 H Calcium 9.3 Magnesium 1.8 Total Bilirubin AST ALT Alkaline Phosphatase Troponin I 736 H* NT-Pro-B Natriuret Pep 3526 H Total Protein Albumin Add-On Test Request 12/15/24 12/15/24 12/15/24 04:03 03:00 00:34 WBC RBC Hgb Hct MCV MCH MCHC RDW Plt Count MPV Immature Gran % Neutrophils % Lymphocytes % Monocytes % Eosinophils % Basophils % Nucleated RBC % Absolute Neutrophils Absolute Lymphocytes Absolute Monocytes Absolute Eosinophils Absolute Basophils RBC Morphology APTT Sodium Potassium Chloride Carbon Dioxide Anion Gap BUN Creatinine Est GFR (CKD-EPI 2020) Glucose Calcium Magnesium Total Bilirubin AST ALT Alkaline Phosphatase Troponin I 771 H* 737 H* 641 H* NT-Pro-B Natriuret Pep Total Protein Albumin Add-On Test Request 12/14/24 12/14/24 23:12 21:35 WBC 13.97 H RBC 3.26 L Hgb 10.6 L Hct 31.9 L MCV 98 H MCH 32.5 MCHC 33.2 RDW 12.7 Plt Count 227 MPV 11.4 H Immature Gran % 0.5 Neutrophils % 77.6 Lymphocytes % 9.2 Monocytes % 11.1 Eosinophils % 1.3 Basophils % 0.3 Nucleated RBC % 0.0 Absolute Neutrophils 10.84 H Absolute Lymphocytes 1.29 Absolute Monocytes 1.55 H Absolute Eosinophils 0.18 Absolute Basophils 0.04 RBC Morphology Normal APTT Sodium 136 Potassium 5.0 Chloride 105 Carbon Dioxide 23.2 Anion Gap 7.8 BUN 65 H Creatinine 2.5 H Est GFR (CKD-EPI 2020) 26.63 Glucose 328 H Calcium 9.0 Magnesium 1.5 L Total Bilirubin 0.5 AST 16 ALT 16 Alkaline Phosphatase 70 Troponin I 533 H* 491 H* NT-Pro-B Natriuret Pep Total Protein 6.3 L Albumin 3.3 L Add-On Test Request DONE PFSH All Active Problems (Updated 12/15/24 @ 01:10 by Alejandra Wright MD) Acute non-ST elevation myocardial infarction (NSTEMI) (Acute) History of total left knee replacement (Acute 12/13/24) Edema (Acute) Venous insufficiency (Acute) Pain in left foot (Acute) Plantar fasciitis of left foot (Acute) Gout due to renal impairment involving toe of right foot (Acute) Hypercalcemia (Acute) Arthritis of right knee (Acute) 40MG DEPO MEDROL 08/08/24 Peripheral sensory neuropathy (Acute) Hammer toes, bilateral (Acute) Osteoarthritis of both knees (Acute) Laxity of knee joint (Acute) Sensation of knee instability (Acute) Unstable right knee (Acute) Cardiomyopathy (Acute) Toenail deformity (Acute) Coordination of complex care (Acute) Chart Review ID several Dx/Tx needing re-assessment or Hx requiring re- evaluation ([facility] apr?)(Bi-Pap ordered 12/2023, rec'd?)(Fe Infusion)(Vit D started? re-checked?)(++) Bradycardia (Acute) Noted for some time (1/2 dose trialed in 2021 before change in PCP)(chart reviewed, 05/30/23: dizziness incompletely evaluated 2' pt leaving [facility] AMA.. ACS ruled out 01/08-12/23.. Metoprolol decreased from 25mg BID per [facility], but maybe NOT implemented? ..and missed in FU! 05/30/23, ik Diuresis (Acute) actively diuresing, good results with q 2-3 days lasix (May 2023). Hx exacerbated CHF in Fall 2022 (AMA 2' intolerance diuretics, unable to get to bathroom; poor sleep 2' noise + uncomfortable bed)((Rx if HOSPTLZATN needed .. ik, 04/2023)) Pitting edema (Chronic) improved with diuretics (mar-apr 2023) .. cont q2 days.. [ ] cardio [facility] review/eval for ortho surgery Low vitamin D level (Acute) Very low, 7.9! Essential hypertension (Chronic 01/31/13) CHF (congestive heart failure), NYHA class II (Chronic) EF 40% (12/2022), decreased from 2019 .. Clinical Dx ClassII CKD (chronic kidney disease) stage 3, GFR 30-59 ml/min (Chronic) History of kidney injury (Acute) GLENYS 2' furosemide, 04/17/23, but needed for HF/Edema.. Seeing Nephrology (quarterly) Decreased dorsalis pedis pulse (Acute) per Pod, 01/13/23 (2/) Absence of posterior tibial pulse (Acute) per Pod, 01/13/23 Coronary artery disease (Chronic) 3-vessel (LAD, LCX, RCA) Atrial fibrillation (Chronic) Apixaban 06/22/2019 Acute exacerbation of congestive heart failure (Acute) ED --> Hospitalized for diuresis, but no mosqueda & pt unable to sleep (left AMA) Cardiomegaly (Acute) CXR; ECHO 05/2019 [facility]--LVEF 53%, +LVH (mild), no significant valvular disease; stable compared with 2017 study Anemia (Chronic) Hx of iron deficiency anemia (Acute) improved with iron infusion, but did not feel better (possible iron infusions exacerb HF? ~ Mar--Apr 2023)(doubtful based on no IVF, but possible) Fatigue (Acute) Worsened per pt, affecting ADL .. not just de-conditioning? Hyperlipidemia (Chronic 08/17/12) Osteoarthritis of right knee (Acute) DEPO MEDROL 08/14/22 Arthritis of both knees (Chronic) MERRITT (obstructive sleep apnea) (Chronic) Bi-PAP 07/23/19 Diabetes mellitus with neuropathy (Chronic) Reduced monofilament 06/24/2019 Goal A1C 7.5% or less Uncontrolled diabetes mellitus (Acute) Ortho Surgery OK < 8 (Dr. Prohaska).. 10/2023 .. Goal </=7.5% Current use of insulin (Chronic) Acquired hypothyroidism (Chronic 10/28/16) High TSH, but WNL T4 (2021) .. re-checking Cervical disc disorder with myelopathy (Acute) right arm Overactive bladder (Chronic) Myrbetriq RE-started, 03/2023.. rptd improved @ 04/10/23 ov, ik .. Oxybutynin, discontinued 06/24/19 in favor of optimizing DMT2 management Unsteady gait (Acute) Dizziness incompletely evaluated 2' pt leaving [facility] AMA.. ACS ruled out 01/08- 12/23.. Metoprolol decreased from 25mg BID per [facility], but maybe NOT implemented? ..and missed in FU! 05/30/23, ik Ataxia (Acute) Asymmetrical sensorineural hearing loss (Acute) Cognitive impairment (Acute) Forgetting, but using notes/print-outs .. ex(?)- helps .. Nail dystrophy (Acute) Onychomycosis (Acute) Tinea pedis (Acute) Blisters of multiple sites (Acute ~01/13/23) [facility]: Seropurulent Blisters, B/L legs.HE Metatarsalgia of left foot (Acute) Pain of right great toe (Acute) Medical History PAD (peripheral artery disease) Left, per OSVALDO (12/2022) Stopped smoking with greater than 20 pack year history Lung CT Screening, 07/16/20 Epiretinal membrane (~01/2023) right eye Slow heart rate Noted for some time (1/2 dose trialed in 2021 before change in PCP)(chart reviewed, 05/30/23: dizziness incompletely evaluated 2' pt leaving [facility] AMA.. ACS ruled out 01/08-12/23.. Metoprolol decreased from 25mg BID per [facility], but maybe NOT implemented? ..and missed in FU! 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 Chronic and recurrent low back pain L4-[address] scan in 1993, recurrent since then intermittently. Hypomagnesemia (06/22/14) Only 1.0 in the ER today. Pipe smoker Surgical History History of colonoscopy (~02/2023) with Mac S/P cardiac catheterization (05/31/19) 2019 History of cataract removal with insertion of prosthetic lens (11/23/14) History of umbilical hernia repair Status post appendectomy Status post coronary artery stent placement (09/26/16) One vessel for unstable angina Status post coronary artery bypass with autogenous graft, 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) 2017 Repair of umbilical hernia Fracture, Open Treatment ORIF-LEFT SYNDESMOSIS WITH TWO SCREWS Colonoscopy - IV Sedation Extraction of cataract 11/23/14; DR. GOINS; RIGHT EYE 12/07/14; DR. GOINS; LEFT EYE Appendectomy Family History Father Diabetes Dementia Neoplasm PANCREATIC Social History Smoking/Tobacco Use Status: Former Tobacco Use Quit Date: 01/02/17 Pack-years: 40 Tobacco: How many years used: 40 Quit status: has quit before Smoking risk assessment performed?: Yes Alcohol Intake: former Counseling given: Yes Counseling provided: reduce to 2 or less/day Details: 2-3 oz at a time Drug use: Never Substance use type: does not use Adopted: No Caregiver/Support person: No Foster care: No Household members: none and other Details: Cats Housing: house Number of Children: 3 number of grandchildren: 4 Communication Needs: None Do you need help understanding health information?: Rarely Pets and animals: Yes Pets and animals: cat(s) Do you think of yourself as: straight/heterosexual Current gender identity: male What is your relationship status?: How often do you talk on the phone with friends or family?: three or more times per week How often do you get together with friends or relatives?: twice per week Panel score (0-1 are the most socially isolated patients): 1 What type of physical activity do you participate in: other Details: Tredmill Duration: 45-60 minutes/day Frequency: 5-6 times per week Special isi needs: No Seatbelt use: always Helmet use: Yes Helmet use: always Drive intox 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 milk pickup driver: No Working smoke detector in home: No Fire extinguisher in home: No Carbon monox detector in home: No Do you feel safe at home: Yes Do you feel safe in your relationship?: Yes Time Spent with Patient Time Spent with Patient: <45 minutes Time was spent: preparing to see the patient(eg.review tests), obtaining and/or reviewing separately otained hiistory, ordering medications,tests, procedures, referring, communicating with other health critical care physician assistant, indepentently interpreting results, counseling the patient and care coordination
--- NOTE | 2024-12-15 16:08 | W.PC.ACHO ---
Registration Status: ADM IN Primary Language: Preferred Language: Irish ED Information & Data Chief Complaint Recheck 12/14/24 21:42 Triage Note patient presented to the ER 12/14/24 20:32 with history having knee replacement yesterday to his left knee, state about 3 hours ago he noticed it bleeding. Patient state he had chest pain tonight prior to coming to the hospital and he had to take a nitro SL Medical / Surgical History PAD (peripheral artery disease) Stopped smoking with greater than 20 pack year history Epiretinal membrane (~01/2023) Slow heart rate Obesity Tubular adenoma of colon (~02/2023) Abrasion of skin of right lower leg Acute medial meniscus tear of right knee SARS-CoV-2 positive (~04/2021) Left ankle sprain Abnormal nuclear stress test History of nicotine dependence Tendinitis of right shoulder Sensorineural hearing loss, bilateral (02/15/15) Maisonneuve fracture of left fibula (05/07/16) Low back pain Kidney stone Erectile dysfunction of organic origin (08/07/15) Depressive disorder Bursitis of shoulder, right, adhesive (04/06/15) H/O renal calculi Umbilical hernia Chronic and recurrent low back pain Hypomagnesemia (06/22/14) Pipe smoker (Last Reviewed 12/14/24 @ 07:22 by Rohan Ceja MD) History of colonoscopy (~02/2023) S/P cardiac catheterization (05/31/19) History of cataract removal with insertion of prosthetic lens (11/23/14) History of umbilical hernia repair Status post appendectomy Status post coronary artery stent placement (09/26/16) Status post coronary artery bypass with autogenous graft, 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) Repair of umbilical hernia Fracture, Open Treatment Colonoscopy - IV Sedation Extraction of cataract Appendectomy Most Recent Vital Signs Temperature 36.3 C L 12/15/24 11:32 Temperature Source Skin 12/15/24 11:32 Pulse 70 12/15/24 11:32 Pulse Rhythm Irregular 12/15/24 02:28 Respiratory Rate 18 12/15/24 11:32 Respiratory Effort Normal, Non-Labored, Short of Breath 12/15/24 02:28 Respiratory Depth Normal 12/15/24 02:28 Respiratory Pattern Normal 12/15/24 02:28 Blood Pressure 130/55 L 12/15/24 11:32 Blood Pressure Mean 80 12/15/24 11:32 Pulse Oximetry 97 12/15/24 11:32 Oxygen Delivery Method Room Air 12/15/24 11:32 Oxygen Flow Rate 0 12/15/24 11:32 Pain Level 7 12/15/24 11:32 Comment Left knee pain. 12/15/24 07:10 Allergies No Known Allergies Allergy (Verified 12/14/24 20:43) Active Medications Generic Name Dose Route Start Last Admin Trade Name Freq PRN Reason Stop Dose Admin Acetaminophen 650 mg 12/15/24 02:51 12/15/24 08:29 Acetaminophen 325 Mg Tab PO 650 mg Q4H PRN PRN Administration Gabapentin 300 mg 12/15/24 03:30 12/15/24 03:50 Gabapentin 300 Mg Cap PO Not Given HS ZEE Heparin Sodium/Sodium Chloride 25,000 unit in 250 mls @ 0 mls/hr 12/15/24 01:00 12/15/24 08:34 IVINF 10 mls/hr INFUSION ZEE 10 mls/hr Protocol Titration Per Protocol Levothyroxine Sodium 50 mcg 12/15/24 06:00 12/15/24 06:27 Levothyroxine 50 Mcg Tab PO 50 mcg 0600 ZEE Administration Sodium Chloride 0 ml 12/14/24 22:39 12/14/24 22:44 Normal Saline Flush 10 Ml Syr IVP 10 ml PRN PRN Administration IV IV Catheter Type [Right Wrist] Peripheral IV IV Catheter Gauge [Right Wrist 20 ] Diagnostics 12/15/24 12/15/24 12/15/24 Range/Units 23:12 12:28 06:08 WBC 11.49 H (4.4-10.8) 10^3/uL RBC 3.15 L (4.36-5.78) 10^6/uL Hgb 10.3 L (13.5-17.5) g/dL Hct 31.0 L (40.0-50.0) % MCV 98 H (80-95) fL MCH 32.7 (27.0-33.0) pg MCHC 33.2 (32.0-36.0) % RDW 13.0 (11.8-14.1) % Plt Count 223 (130-400) 10^3/uL MPV 11.8 H (8.0-11.0) fL Immature Gran % % Neutrophils % % Lymphocytes % % Monocytes % % Eosinophils % % Basophils % % Nucleated RBC % (0.0-0.3) % Absolute Neutrophils (1.2-6.7) 10^3/uL Absolute Lymphocytes (1.2-3.4) 10^3/uL Absolute Monocytes (0.1-0.8) 10^3/uL Absolute Eosinophils (0.0-0.7) 10^3/uL Absolute Basophils (0.0-0.2) 10^3/uL RBC Morphology APTT 63.6 H 69.5 H (20.6-30.2) sec Sodium 142 (136-145) mmol/L Potassium 4.8 (3.5-5.1) mmol/L Chloride 108 H (98-107) mmol/L Carbon Dioxide 20.6 L (21.0-32.0) mmol/L Anion Gap 13.4 H (3-11) mmol/L BUN 62 H (7-18) mg/dL Creatinine 2.1 H (0.70-1.30) mg/dL Est GFR (CKD-EPI 2020) 32.83 (mL/min/1.73m2) Glucose 224 H (74-106) mg/dL Calcium 9.3 (8.5-10.1) mg/dL Magnesium 1.8 (1.8-2.4) mg/dL Total Bilirubin (0.2-1.0) mg/dL AST (15-37) U/L ALT (16-63) U/L Alkaline Phosphatase (46-116) U/L Troponin I 736 H* (<or=76) ng/L NT-Pro-B Natriuret Pep 3526 H (<300) pg/mL Total Protein (6.4-8.2) g/dL Albumin (3.4-5.0) g/dL Add-On Test Request 12/15/24 12/15/24 12/15/24 Range/Units 04:03 03:00 00:34 WBC (4.4-10.8) 10^3/uL RBC (4.36-5.78) 10^6/uL Hgb (13.5-17.5) g/dL Hct (40.0-50.0) % MCV (80-95) fL MCH (27.0-33.0) pg MCHC (32.0-36.0) % RDW (11.8-14.1) % Plt Count (130-400) 10^3/uL MPV (8.0-11.0) fL Immature Gran % % Neutrophils % % Lymphocytes % % Monocytes % % Eosinophils % % Basophils % % Nucleated RBC % (0.0-0.3) % Absolute Neutrophils (1.2-6.7) 10^3/uL Absolute Lymphocytes (1.2-3.4) 10^3/uL Absolute Monocytes (0.1-0.8) 10^3/uL Absolute Eosinophils (0.0-0.7) 10^3/uL Absolute Basophils (0.0-0.2) 10^3/uL RBC Morphology APTT (20.6-30.2) sec Sodium (136-145) mmol/L Potassium (3.5-5.1) mmol/L Chloride (98-107) mmol/L Carbon Dioxide (21.0-32.0) mmol/L Anion Gap (3-11) mmol/L BUN (7-18) mg/dL Creatinine (0.70-1.30) mg/dL Est GFR (CKD-EPI 2020) (mL/min/1.73m2) Glucose (74-106) mg/dL Calcium (8.5-10.1) mg/dL Magnesium (1.8-2.4) mg/dL Total Bilirubin (0.2-1.0) mg/dL AST (15-37) U/L ALT (16-63) U/L Alkaline Phosphatase (46-116) U/L Troponin I 771 H* 737 H* 641 H* (<or=76) ng/L NT-Pro-B Natriuret Pep (<300) pg/mL Total Protein (6.4-8.2) g/dL Albumin (3.4-5.0) g/dL Add-On Test Request 12/14/24 12/14/24 Range/Units 23:12 21:35 WBC 13.97 H (4.4-10.8) 10^3/uL RBC 3.26 L (4.36-5.78) 10^6/uL Hgb 10.6 L (13.5-17.5) g/dL Hct 31.9 L (40.0-50.0) % MCV 98 H (80-95) fL MCH 32.5 (27.0-33.0) pg MCHC 33.2 (32.0-36.0) % RDW 12.7 (11.8-14.1) % Plt Count 227 (130-400) 10^3/uL MPV 11.4 H (8.0-11.0) fL Immature Gran % 0.5 % Neutrophils % 77.6 % Lymphocytes % 9.2 % Monocytes % 11.1 % Eosinophils % 1.3 % Basophils % 0.3 % Nucleated RBC % 0.0 (0.0-0.3) % Absolute Neutrophils 10.84 H (1.2-6.7) 10^3/uL Absolute Lymphocytes 1.29 (1.2-3.4) 10^3/uL Absolute Monocytes 1.55 H (0.1-0.8) 10^3/uL Absolute Eosinophils 0.18 (0.0-0.7) 10^3/uL Absolute Basophils 0.04 (0.0-0.2) 10^3/uL RBC Morphology Normal APTT (20.6-30.2) sec Sodium 136 (136-145) mmol/L Potassium 5.0 (3.5-5.1) mmol/L Chloride 105 (98-107) mmol/L Carbon Dioxide 23.2 (21.0-32.0) mmol/L Anion Gap 7.8 (3-11) mmol/L BUN 65 H (7-18) mg/dL Creatinine 2.5 H (0.70-1.30) mg/dL Est GFR (CKD-EPI 2020) 26.63 (mL/min/1.73m2) Glucose 328 H (74-106) mg/dL Calcium 9.0 (8.5-10.1) mg/dL Magnesium 1.5 L (1.8-2.4) mg/dL Total Bilirubin 0.5 (0.2-1.0) mg/dL AST 16 (15-37) U/L ALT 16 (16-63) U/L Alkaline Phosphatase 70 (46-116) U/L Troponin I 533 H* 491 H* (<or=76) ng/L NT-Pro-B Natriuret Pep (<300) pg/mL Total Protein 6.3 L (6.4-8.2) g/dL Albumin 3.3 L (3.4-5.0) g/dL Add-On Test Request DONE [id number] Documentation Fingerstick Glucose Start: 12/15/24 02:51 Freq: .Q6H Status: Active Protocol: Activity Type Activity Date Activity User E-sign Co-sign Detail Recorded Client Recorded Date Recorded By Document 12/15/24 11:55 BKG DAEMON(5) [id number] 12/15/24 11:56 BKG DAEMON(6) Intake and Output - 24 Hour Total 12/14/24 20:30 thru 12/15/24 15:27 Intake Total 610 Output Total 2375 Balance -1765 Weight 135.5 kg Intake: IV 610 Output: Urine 2375 Other: Urine Color Yellow Urine Appearance Clear Urine Odor Normal Comment void in urinal at prompt # Voids 2 Falls Risk Assessment History of Falls Previous History 12/15/24 02:28 Contributing Factors Impairments 12/15/24 02:28 Ambulatory Aids Uses ambulatory device 12/15/24 02:28 Tubes/Lines With any additional score 12/15/24 02:28 Gait Evaluation No gait disturbance 12/14/24 21:34 Cognition No cognitive impairment 12/15/24 02:28 Fall Total Score 53 12/15/24 02:28 Level of Risk High Risk 12/15/24 02:28 Problems (Last Reviewed 12/14/24 @ 07:22 by Rohan Ceja MD) Acute non-ST elevation myocardial infarction (NSTEMI) (Acute) History of total left knee replacement (Acute 12/13/24) CHF (congestive heart failure), NYHA class II (Chronic) Atrial fibrillation (Chronic) Diabetes mellitus with neuropathy (Chronic) Acquired hypothyroidism (Chronic 10/28/16) v v v v v v v v v Sending and/or Receiving Nurses: Please use comment section below to note any information pertinent to the patient hand-off not included above. Information / Comments: report given to Adin YAÑEZ, [facility] 12/15 16:08 Report received from:
== END 2024-12-15 16:41 | disposition short-term general hospital (02) | DRG 281 ==
LOC: ER 12-15 02:20 → MS 12-15 02:22
PROVIDERS: Nurse Practitioner Family; Admitting Provider Family Medicine; Emergency Provider Student in an Organized Health Care Education/Training Program; PCP Student in an Organized Health Care Education/Training Program; Responsible Provider Family Medicine; Visit Provider Family Medicine
DX: I21.4 Non-ST elevation (NSTEMI) myocardial infarction (principal); I50.22 Chronic systolic (congestive) heart failure; I48.20 Chronic atrial fibrillation, unspecified; E11.40 Type 2 diabetes mellitus with diabetic neuropathy, unspecified; Z79.4 Long term (current) use of insulin; E03.9 Hypothyroidism, unspecified; Z96.652 Presence of left artificial knee joint; E66.9 Obesity, unspecified; I73.9 Peripheral vascular disease, unspecified; Z68.41 Body mass index [BMI] 40.0-44.9, adult; I13.0 Hypertensive heart and chronic kidney disease with heart failure and stage 1 through stage 4 chronic kidney disease, or unspecified chronic kidney disease; I42.9 Cardiomyopathy, unspecified; N17.9 Acute kidney failure, unspecified; D64.9 Anemia, unspecified; Z79.899 Other long term (current) drug therapy; Z79.85 Long-term (current) use of injectable non-insulin antidiabetic drugs; Z79.84 Long term (current) use of oral hypoglycemic drugs; Z79.01 Long term (current) use of anticoagulants; R45.89 Other symptoms and signs involving emotional state; E55.9 Vitamin D deficiency, unspecified; N18.30 Chronic kidney disease, stage 3 unspecified; G47.33 Obstructive sleep apnea (adult) (pediatric); Z95.1 Presence of aortocoronary bypass graft; Z95.5 Presence of coronary angioplasty implant and graft; E11.22 Type 2 diabetes mellitus with diabetic chronic kidney disease
CPT/HCPCS: 00123; 36415; 71275; 80048; 80053; 85027; 93005; 96361; 96365; 96366; 96376; 97110; 99291; 71046; 83735; 83880; 84484; 85025; 85730; 93010; 99236; J0690; J1171; J1644; J2270; J3490

== ENCOUNTER 2024-12-26 15:44 | Outpatient (CLI) | payer MEDICARE, OTHER, SELFPAY ==
--- NOTE | 2024-12-26 13:15 | DI.RAD_ITS ---
Exam(s) XR KNEE LT 1V XR STANDING ALIGNMENT EXAM: XR STANDING ALIGNMENT CLINICAL HISTORY: 1ST POST OP S/P L TKA. TECHNIQUE: 2D digital imaging was performed. Six images were obtained. COMPARISON: CR XR KNEE LT 2V AP,LAT from 08/08/2024 CR XR STANDING ALIGNMENT from 08/08/2024 CR XR KNEE RT 2V AP,LAT from 08/08/2024 FINDINGS: BONES: Evaluation of the hips is limited due to patient body habitus. There is mild joint space narrowing bilaterally. Since the prior examination the patient has undergone a left total knee arthroplasty. The orthopedic hardware is in good position. No evidence of hardware loosening is seen. In the right knee, there is moderate narrowing of the medial joint compartment. Small osteophytes are seen both medially and laterally. There are surgical clips seen in the medial soft tissues. The ankles are well maintained.There is no significant leg length discrepancy. SOFT TISSUE: Atherosclerotic calcification is present. IMPRESSION: 1. Interval placement of a left total knee arthroplasty. 2. Mild degenerative changes of the right knee. DATA REPOSITORY: RADIATION DOSE DELIVERED:
== END 2024-12-26 15:45 | disposition home or self-care (01) ==
LOC: DIORS 15:44
PROVIDERS: PCP Student in an Organized Health Care Education/Training Program; Referring Provider Student in an Organized Health Care Education/Training Program; Visit Provider Physician Assistant
DX: Z47.1 Aftercare following joint replacement surgery (principal); Z96.652 Presence of left artificial knee joint
CPT/HCPCS: 99024; 73560; 77073

== ENCOUNTER → 2024-12-30 10:00 | Outpatient (BNVA) | payer MEDICARE, OTHER, SELFPAY | PROVIDERS: PCP Student in an Organized Health Care Education/Training Program; Referring Provider Student in an Organized Health Care Education/Training Program; Visit Provider Internal Medicine Cardiovascular Disease | DX: I48.20 Chronic atrial fibrillation, unspecified (principal); I25.110 Atherosclerotic heart disease of native coronary artery with unstable angina pectoris; E11.59 Type 2 diabetes mellitus with other circulatory complications; I10 Essential (primary) hypertension | CPT/HCPCS: 99214 ==

== ENCOUNTER → 2025-01-23 13:39 | Outpatient (BNVA) | payer MEDICARE, OTHER, SELFPAY | PROVIDERS: PCP Student in an Organized Health Care Education/Training Program; Referring Provider Student in an Organized Health Care Education/Training Program; Visit Provider Physician Assistant | DX: Z47.1 Aftercare following joint replacement surgery (principal); Z96.652 Presence of left artificial knee joint | CPT/HCPCS: 99024 ==

== ENCOUNTER 2025-03-01 10:10 | Observation (INO) | payer MEDICARE, OTHER, SELFPAY ==
[2025-03-01] VITALS (40 sets, daily range): BP systolic 100–159; BP diastolic 36–65; PULSE 45–87; RESP 12–20; TEMP 36.3–36.7; O2SAT 95–100
--- NOTE | 2025-03-01 10:00 | RT.EKG_ITS ---
APPROVED REPORT Exam: Resting ECG Reason for Exam: syncope Patient Location: E HR:62 bpm ECG Measurements Heart Rate 62 AXIS OH [id number] P [id number] QRSd 162 QRS -62 QT 481 T 65 QTc 488 Conclusion Atrial fibrillation...V-rate 52- 79, irreg A-activity RBBB and LAFB...QRSd >120mS, axis(-40,240) Probable left ventricular hypertrophy...(RaVL+SV3)xQRSd >280 No Occlusion HI
--- NOTE | 2025-03-01 12:31 | W.ED.GENAD ---
Discharge Plan Disposition Patient Disposition: Admit to [facility] Condition: Good Discharge Details Clinical Impression: Unsteady gait, CHF (congestive heart failure), NYHA class II Admit Date/Time: 03/01/25 14:26 Admit Provider: Caleb Bowman Attending Provider: Caleb Bowman Primary Care Provider: Richard Jeffers ED Provider: Aliyah Byrd Mode of arrival: EMS. Date/Time Provider Initiated Documentation: 03/01/25 10:34. Limitations to Documentation: no limitations. Information obtained by: patient, EMS, RN notes reviewed and old records reviewed. History of Present Illness 74 year old M presents to the emergency department with the chief complaint of difficult ambulating, left foot pain/swelling, described as moderate, Quality is described as aching, and is localized to the left and lower extremity. Patient started experiencing this week(s) (1) and it has been constant. No relieving factors improve symptom(s), Movement worsens symptoms . Patient notes no other symptoms.. Patient did receive the following treatments prior to arrival, none Related Data Home Medications Medication Instructions Recorded Confirmed aspirin 81 mg tablet,delayed 81 mg PO DAILY 06/02/19 03/01/25 release lancets 28 gauge (FreeStyle #400 ea 02/11/21 03/01/25 Lancets) pen needle, diabetic 32 gauge x #400 ea 03/25/21 03/01/25 (BD Ultra-Fine Amber Pen Needle) flash glucose scanning reader #1 ea 11/17/21 03/01/25 (FreeStyle [place] 2 [place]) blood sugar diagnostic (Blood #400 ea 12/13/21 03/01/25 Glucose Test strips) flash glucose sensor (FreeStyle #2 ea 11/27/22 03/01/25 Bahman 2 Sensor kit) insulin aspart U-100 100 unit/mL See Rx Instructions .Route 05/29/23 03/01/25 (3 mL) subcutaneous pen (Novolog .COMPLEX #90 mL FlexPen U-100 Insulin aspart) apixaban 5 mg tablet (Eliquis) 5 mg PO BID #180 tabs 07/22/23 03/01/25 empagliflozin 25 mg tablet See Rx Instructions .Route 08/04/23 03/01/25 (Jardiance) .COMPLEX #90 tabs rosuvastatin 40 mg tablet See Rx Instructions .Route 09/16/23 03/01/25 .COMPLEX #90 tabs Knee Brace - STABILIZING #1 ea 10/25/23 03/01/25 fenofibrate nanocrystallized 145 145 mg PO DAILY #90 tab-caps 02/24/24 03/01/25 mg tablet (Tricor) semaglutide 1 mg/dose (4 mg/3 mL) 1 mg (0.75 mL) subcut QWEEK #3 mL 04/14/24 03/01/25 subcutaneous pen injector mirabegron 50 mg tablet,extended 50 mg PO DAILY #90 tabs 04/28/24 03/01/25 release 24 hr (Myrbetriq) furosemide 40 mg tablet 40 mg PO DAILY PRN LEG SWELLING 05/03/24 03/01/25 #90 tabs levothyroxine 50 mcg tablet See Rx Instructions .Route 05/03/24 03/01/25 .COMPLEX #90 tabs nitroglycerin 0.4 mg sublingual 0.4 mg sublingual Q5M PRN chest 05/03/24 03/01/25 tablet pain #90 tabs losartan 25 mg tablet See Rx Instructions .Route 07/06/24 03/01/25 .COMPLEX #90 tabs ketoconazole 2 % topical cream 1 applic topical DAILY #120 grams 11/28/24 03/01/25 insulin glargine 100 unit/mL (3 65 unit subcut QPM 12/08/24 03/01/25 mL) subcutaneous pen (Lantus Solostar U-100 Insulin) acetaminophen 500 mg tablet 1,000 mg (2 x 500 mg) PO Q8H PRN 12/13/24 03/01/25 pain #90 tabs gabapentin 300 mg capsule 300 mg PO QHS #14 caps 12/13/24 03/01/25 meloxicam 15 mg tablet 15 mg PO DAILY #30 tabs 12/13/24 03/01/25 pantoprazole 40 mg tablet,delayed 40 mg PO DAILY #14 tabs 12/13/24 03/01/25 release ergocalciferol (vitamin D2) 1,250 1,250 mcg PO .WEEKLY 12/15/24 03/01/25 mcg (50,000 unit) capsule (Vitamin D2) amlodipine 2.5 mg tablet 2.5 mg PO DAILY 12/21/24 03/01/25 ezetimibe 10 mg tablet 10 mg PO DAILY 12/21/24 03/01/25 carvedilol 3.125 mg tablet 3.125 mg PO BID #180 tabs 12/30/24 03/01/25 oxycodone 5 mg tablet 5 mg PO QHS PRN pain #14 tabs 02/07/25 03/01/25 docusate sodium 100 mg capsule 100 mg PO BID PRN 03/01/25 03/01/25 (Colace) trazodone 50 mg tablet 50 mg PO QHS 03/01/25 03/01/25 Previous Rx's Medication Instructions Recorded lancets 28 gauge (FreeStyle #400 ea 02/11/21 Lancets) pen needle, diabetic 32 gauge x #400 ea 03/25/21 (BD Ultra-Fine Amber Pen Needle) flash glucose scanning reader #1 ea 11/17/21 (FreeStyle [place] 2 [place]) blood sugar diagnostic (Blood #400 ea 12/13/21 Glucose Test strips) flash glucose sensor (FreeStyle #2 ea 11/27/22 Bahman 2 Sensor kit) insulin aspart U-100 100 unit/mL See Rx Instructions .Route 05/29/23 (3 mL) subcutaneous pen (Novolog .COMPLEX #90 mL FlexPen U-100 Insulin aspart) apixaban 5 mg tablet (Eliquis) 5 mg PO BID #180 tabs 07/22/23 empagliflozin 25 mg tablet See Rx Instructions .Route 08/04/23 (Jardiance) .COMPLEX #90 tabs rosuvastatin 40 mg tablet See Rx Instructions .Route 09/16/23 .COMPLEX #90 tabs Knee Brace - STABILIZING #1 ea 10/25/23 fenofibrate nanocrystallized 145 145 mg PO DAILY #90 tab-caps 02/24/24 mg tablet (Tricor) semaglutide 1 mg/dose (4 mg/3 mL) 1 mg (0.75 mL) subcut QWEEK #3 mL 04/14/24 subcutaneous pen injector mirabegron 50 mg tablet,extended 50 mg PO DAILY #90 tabs 04/28/24 release 24 hr (Myrbetriq) furosemide 40 mg tablet 40 mg PO DAILY PRN LEG SWELLING 05/03/24 #90 tabs levothyroxine 50 mcg tablet See Rx Instructions .Route 05/03/24 .COMPLEX #90 tabs nitroglycerin 0.4 mg sublingual 0.4 mg sublingual Q5M PRN chest 05/03/24 tablet pain #90 tabs losartan 25 mg tablet See Rx Instructions .Route 07/06/24 .COMPLEX #90 tabs ketoconazole 2 % topical cream 1 applic topical DAILY #120 grams 11/28/24 acetaminophen 500 mg tablet 1,000 mg (2 x 500 mg) PO Q8H PRN 12/13/24 pain #90 tabs gabapentin 300 mg capsule 300 mg PO QHS #14 caps 12/13/24 meloxicam 15 mg tablet 15 mg PO DAILY #30 tabs 12/13/24 pantoprazole 40 mg tablet,delayed 40 mg PO DAILY #14 tabs 12/13/24 release carvedilol 3.125 mg tablet 3.125 mg PO BID #180 tabs 12/30/24 oxycodone 5 mg tablet 5 mg PO QHS PRN pain #14 tabs 02/07/25 Allergies Allergy/AdvReac Type Severity Reaction Status Date / Time No Known Allergies Allergy Verified 03/01/25 14:00 General Stated Complaint: Dizzy/Sync CHRISTIANE: 3 Review of Systems Constitutional Constitutional: Reports as per HPI, Denies chills, Denies fever(s) and Denies frequent falls Eyes Eyes: Reports as per HPI, Denies blurry vision and Denies change in vision ENT Ears, Nose, Mouth, and Throat: Denies vertigo Cardiovascular Cardiovascular: Reports as per HPI, Denies chest pain, Denies lightheadedness, Denies dyspnea and Denies dyspnea on exertion Respiratory Respiratory: Reports as per HPI, Denies chest congestion, Denies cough, Denies dyspnea and Denies dyspnea on exertion Gastrointestinal Gastrointestinal: Reports as per HPI, Denies abdominal pain, Denies change in bowel habits, Denies nausea and Denies vomiting Genitourinary Genitourinary: Reports system reviewed and no additional complaints, except as documented (denies change in urinary habits) Musculoskeletal Musculoskeletal: Reports as per HPI, Denies back pain and Denies numbness Integumentary/Breasts Skin/Breast: Reports as per HPI and Denies rash Neurologic Neurologic: Reports as per HPI, Denies abnormal movements, Denies abnormal speech, Denies confusion, Denies vertigo, Denies frequent falls, Denies localized weakness, Denies numbness and Denies sensory deficit Psychiatric Psychiatric: Denies confusion Exam Const General: cooperative, healthy appearing, comfortable, no acute distress, well developed and well groomed Nutritional Appearance: well nourished and obese Orientation: alert, awake and oriented x3 Resp Effort & Inspection: normal respiratory effort, able to speak in complete sentences and no respiratory distress Auscultation: clear to auscultation bilaterally, no rales, no rhonchi and no wheezes Cardio Rate: regular rate Rhythm: regular rhythm Heart Sounds: S1 normal and S2 normal GI Inspection: normal to inspection and non-distended Palpation: soft, no hepatosplenomegaly and nontender Skin General skin exam: no rashes or lesions noted Neuro General: patient alert, patient awake and patient oriented x3 Cranial Nerves: CN's II-XI intact bilaterally Cognition: normal cognition Speech: speech normal Motor: muscle tone normal throughout, strength 5/5 throughout, no pronator drift, no movement abnormalities noted and no fasciculations Sensory Exam: no sensory deficits noted Coordination: [id number] test normal Extrem General: normal to inspection, capillary refill normal, no calf tenderness and edema Laterality: left Course Vital Signs Vital signs: Vital Signs Temperature 36.6 C 03/01/25 10:45 Pulse 82 03/01/25 10:45 Respiratory Rate 20 03/01/25 10:45 Blood Pressure 100/65 03/01/25 10:45 Pulse Oximetry 95 03/01/25 10:45 Temperature 36.6 C 03/01/25 10:45 Temperature Source Tympanic 03/01/25 10:45 Pulse 82 03/01/25 10:45 Respiratory Rate 20 03/01/25 10:45 Blood Pressure 100/65 03/01/25 10:45 Blood Pressure Position Sitting 03/01/25 10:45 Pulse Oximetry 95 03/01/25 10:45 Oxygen Delivery Method Room Air 03/01/25 10:45 Oxygen Flow Rate 0 03/01/25 10:45 Pain Level 3 03/01/25 10:45 Medical Decision Making Patient is a pleasant 74-year-old gentleman presenting today, via EMS after a fall. He reports that felt stiff associated with lower extremity swelling and arthritis in bety right knee. He reports that he underwent a total knee replacement in December. Initially had been working with physical therapy and trying to do PT at home but states that this is dropped off secondary to left lower extremity pain. He reports that the knee itself is feeling much better but that he has been having increased pain in the foot in particular. Patient states that he has noticed increased swelling and this does coincide with him stopping his Lasix. He did stop the Lasix he did not have to get up to urinate quite as much as this was causing him some distress. He denies any recent fevers or chills. Aside from the Lasix, no recent change in his medication. He denies any focal weakness but does state that when he got up this morning he felt generally weak and like his legs did not know what to do . He does report that he has typically had a walker at bedside but that he did not put this back or was supposed to is going once was not able to use this and was attempting to get up unassisted. States that when he did fall he landed on the bed did not actually strike his head, no loss of consciousness. States that he did suffer a small this area. On exam, patient appears nontoxic. He is resting comfortably no acute distress. He is neurologically intact with no evidence to suggest CVA. The initial concern was for potential dizziness and weakness but do not see any focal area of weakness and the patient is denying any dizziness. It sounds more like he has been having worsening lower extremity edema ambulation. This is exacerbated with the patient's not using his assistive devices. Normal cardiac and pulmonary exam. He does have a small amount of edema, particularly notable in the left foot. No erythema or warmth over this area. The left knee is slightly warm but is not erythematous or painful for the patient. Capillary refill is intact. No calf tenderness to suggest a DVT. Probably concern at this time for medication noncompliance leading to lower extremity edema as patient to stop Lasix just from the time that his lower extremity edema did increase. Will give IV Lasix today. Again, no evidence to suggest a CVA. Will also attempt to ambulate the patient at bedside and have physical therapy evaluate him. I am hoping that with a better safety plan and medication continuity that he will be safe for discharge to home. Will also touch base with care management as the patient is concerned about going home and his safety given his scared this morning and difficulty with ambulation. Care management advised that patient's not eligible for rehab at this time, and specifically questioned this if it was possible for him to be able to go to a rehab facility for continued work after having his total knee arthroplasty. However, patient is out of the window for this. Labs reviewed, via does having good urine output after the 40 mg IV Lasix. No significant change in the lower extremity edema as of yet. Physical therapy attempted mobilization with the patient and he did have difficulty with his gait, particularly in the foot that is more swollen and tender. She did question potential gout but the swelling does seem more diffuse throughout the entirety of the foot as is the discomfort. He does have a history of gout but I would classically expect this to be more isolated to a single joint and have associated erythema which I am not visualizing at this time. However, this could be early in the gout flare and it may not have declared itself as of yet. Physical therapy is concerned that high risk to fall once again and recommends admission during and assistance. I am also hoping that further diuresis. I discussed patient who is in agreement and is agreeable to stay in the hospital for continued management and safety. Dictation completed using [employer] dictation software. Please excuse any errors or as400 programmer analyst anomalies that may remain. Quality:SDOH Health Related Social Needs: Health related social needs lonely/isolated Health related social needs details Pt states he does not need assistance. PFSH All Active Problems (Updated 03/01/25 @ 16:12 by JOBY Barahona) Acute non-ST elevation myocardial infarction (NSTEMI) (Acute) History of total left knee replacement (Acute 12/13/24) Edema (Acute) Venous insufficiency (Acute) Pain in left foot (Acute) Plantar fasciitis of left foot (Acute) Gout due to renal impairment involving toe of right foot (Acute) Hypercalcemia (Acute) Arthritis of right knee (Acute) 40MG DEPO MEDROL 08/08/24 Peripheral sensory neuropathy (Acute) Hammer toes, bilateral (Acute) Osteoarthritis of both knees (Acute) Laxity of knee joint (Acute) Sensation of knee instability (Acute) Unstable right knee (Acute) Cardiomyopathy (Acute) Toenail deformity (Acute) Coordination of complex care (Acute) Chart Review ID several Dx/Tx needing re-assessment or Hx requiring re-evaluation ([facility] dec?)(Bi-Pap ordered 12/2023, rec'd?)(Fe Infusion)(Vit D started? re-checked?)(++) Bradycardia (Acute) Noted for some time (1/2 dose trialed in 2021 before change in PCP)(chart reviewed, 05/30/23: dizziness incompletely evaluated 2' pt leaving [facility] AMA.. ACS ruled out 01/08-12/23.. Metoprolol decreased from 25mg BID per [facility], but maybe NOT implemented? ..and missed in FU! 05/30/23, sung Diuresis (Acute) actively diuresing, good results with q 2-3 days lasix (May 2023). Hx exacerbated CHF in Fall 2022 (AMA 2' intolerance diuretics, unable to get to bathroom; poor sleep 2' noise + uncomfortable bed)((Rx if HOSPTLZATN needed .. ik, 04/2023)) Pitting edema (Chronic) improved with diuretics (mar-apr 2023) .. cont q2 days.. [ ] [place] [facility] [place] Low vitamin D level (Acute) Very low, 7.9! Essential hypertension (Chronic 01/31/13) CHF (congestive heart failure), NYHA class II (Chronic) EF 40% (12/2022), decreased from 2019 .. Clinical Dx ClassII CKD (chronic kidney disease) stage 3, GFR 30-59 ml/min (Chronic) History of kidney injury (Acute) GLENYS 2' furosemide, 04/17/23, but needed for HF/Edema.. Seeing Nephrology (quarterly) Decreased dorsalis pedis pulse (Acute) per Pod, 01/13/23 (2/4) Absence of posterior tibial pulse (Acute) per Pod, 01/13/23 Coronary artery disease (Chronic) 3-vessel (LAD, LCX, RCA) Atrial fibrillation (Chronic) Apixaban 06/22/2019 Acute exacerbation of congestive heart failure (Acute) ED --> Hospitalized for diuresis, but no mosqueda & pt unable to sleep (left AMA) Cardiomegaly (Acute) CXR; [place] [facility] [place]%, +LVH (mild), no significant valvular disease; stable compared with 2017 study Anemia (Chronic) Hx of iron deficiency anemia (Acute) improved with iron infusion, but did not feel better (possible iron infusions exacerb HF? ~ Mar--Apr 2023)(doubtful based on no IVF, but possible) Fatigue (Acute) Worsened per pt, affecting ADL .. not just de-conditioning? Hyperlipidemia (Chronic 08/17/12) Osteoarthritis of right knee (Acute) DEPO MEDROL 08/14/22 Arthritis of both knees (Chronic) MERRITT (obstructive sleep apnea) (Chronic) Bi-PAP 07/23/19 Diabetes mellitus with neuropathy (Chronic) Reduced monofilament 06/24/2019 Goal A1C 7.5% or less Uncontrolled diabetes mellitus (Acute) Ortho Surgery OK < 8 (Dr. Ceja).. 10/2023 .. Goal </=7.5% Current use of insulin (Chronic) Acquired hypothyroidism (Chronic 10/28/16) High TSH, but WNL T4 (2021) .. re-checking Cervical disc disorder with myelopathy (Acute) right arm Overactive bladder (Chronic) Myrbetriq RE-started, 03/2023.. rptd improved @ 04/10/23 ov, ik .. Oxybutynin, discontinued 06/24/19 in favor of optimizing DMT2 management Unsteady gait (Acute) Dizziness incompletely evaluated 2' pt leaving [facility] AMA.. ACS ruled out 01/08-12/23.. Metoprolol decreased from 25mg BID per [facility], but maybe NOT implemented? ..and missed in FU! 05/30/23, ik Ataxia (Acute) Asymmetrical sensorineural hearing loss (Acute) Cognitive impairment (Acute) Forgetting, but using notes/print-outs .. ex(?)- helps .. Nail dystrophy (Acute) Onychomycosis (Acute) Tinea pedis (Acute) Blisters of multiple sites (Acute ~01/13/23) 01/13/23 [facility] note- Dr. Barker: Seropurulent Blisters, B/L legs.HE Metatarsalgia of left foot (Acute) Pain of right great toe (Acute) Medical History PAD (peripheral artery disease) Left, per OSVALDO (12/2022) Stopped smoking with greater than 20 pack year history Lung CT Screening, 07/16/20 Epiretinal membrane (~01/2023) right eye Slow heart rate Noted for some time (1/2 dose trialed in 2021 before change in PCP)(chart reviewed, 05/30/23: dizziness incompletely evaluated 2' pt leaving [facility] AMA.. ACS ruled out 01/08-12/23.. Metoprolol decreased from 25mg BID per [facility], but maybe NOT implemented? ..and missed in FU! 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 Chronic and recurrent low back pain L4-[address] scan in 1993, recurrent since then intermittently. Hypomagnesemia (06/22/14) Only 1.0 in the ER today. Pipe smoker Surgical History History of colonoscopy (~02/2023) with Mac S/P cardiac catheterization (05/31/19) 2019 History of cataract removal with insertion of prosthetic lens (11/23/14) History of umbilical hernia repair Status post appendectomy Status post coronary artery stent placement (09/26/16) One vessel for unstable angina Status post coronary artery bypass with autogenous graft, 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) 2017 Repair of umbilical hernia Fracture, Open Treatment ORIF-LEFT SYNDESMOSIS WITH TWO SCREWS Colonoscopy - IV Sedation Extraction of cataract 11/23/14; DR. GOINS; RIGHT EYE 12/07/14; DR. GOINS; LEFT EYE Appendectomy Family History Father Diabetes Dementia Neoplasm PANCREATIC Social History Smoking/Tobacco Use Status: Former Tobacco Use Quit Date: 01/02/17 Pack-years: 40 Tobacco: How many years used: 40 Quit status: has quit before Smoking risk assessment performed?: Yes Alcohol Intake: former Counseling given: Yes Counseling provided: reduce to 2 or less/day Details: 2-3 oz at a time Drug use: Never Substance use type: does not use Adopted: No Caregiver/Support person: No Foster care: No Household members: none and other Details: Cats Housing: house Number of Children: 3 number of grandchildren: 4 Communication Needs: None Do you need help understanding health information?: Rarely Pets and animals: Yes Pets and animals: cat(s) Do you think of yourself as: straight/heterosexual Current gender identity: male What is your relationship status?: How often do you talk on the phone with friends or family?: three or more times per week How often do you get together with friends or relatives?: twice per week Panel score (0-1 are the most socially isolated patients): 1 What type of physical activity do you participate in: other Details: Tredmill Duration: 45-60 minutes/day Frequency: 5-6 times per week Special isi needs: No Seatbelt use: always Helmet use: Yes Helmet use: always Drive intox 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 belly dump driver: No Working smoke detector in home: No Fire extinguisher in home: No Carbon monox detector in home: No Do you feel safe at home: Yes Do you feel safe in your relationship?: Yes
[2025-03-01 12:51] LABS: Abs Immature Grans 0.07 10^3/uL (0.0-0.06); HCT 37.7 % (40.0-50.0); HGB 12.4 g/dL (13.5-17.5); Immature Grans % 0.5 %; MCH 32.2 pg (27.0-33.0); MCHC 32.9 % (32.0-36.0); MCV 98 fL (80-95); MPV 11.4 fL (8.0-11.0); Platelet Count 293 10^3/uL (130-400); RBC 3.85 10^6/uL (4.36-5.78); RDW 12.9 % (11.8-14.1); RDW-SD 46.2 fL; WBC 12.83 10^3/uL (4.4-10.8)
[2025-03-01 13:44] LABS: ALT 23 U/L (16-63); AST 21 U/L (15-37); Albumin 3.8 g/dL (3.4-5.0); Alkaline Phosphatase 65 U/L (46-116); Anion Gap 9.7 mmol/L (3-11); BUN 49 mg/dL (7-18); Bilirubin, Total 0.5 mg/dL (0.2-1.0); CO2 28.3 mmol/L (21.0-32.0); Calcium 9.6 mg/dL (8.5-10.1); Chloride 102 mmol/L (98-107); Glucose 136 mg/dL (74-106); Magnesium 2.2 mg/dL (1.8-2.4); Potassium 4.2 mmol/L (3.5-5.1); Sodium 140 mmol/L (136-145); Total Protein 7.4 g/dL (6.4-8.2)
[2025-03-01] MEDS: Furosemide 40 MG/4 ML VIAL IVP (13:54)
--- NOTE | 2025-03-01 13:57 | IN_ITS ---
PT Notes Visit Reasons: AMAN/ syncope Inpatient Physical Therapy Evaluation- Emergency Room Date: 03/01/25 Referring Doctor: JOBY Mayorga PT Orders: PT CONSULT: Precautions: standard Patient Profile/Admitting Diagnosis: Minh Babin Brill is a 74 year old male being seen for PT consultation in Emergency Room. He presented via EMS after a fall at home. He's 11 weeks s/p left knee replacement, with contralateral knee OA and planned TKA in the future. Social History/Home Situation: Lives alone. Typically ambulates with cane, stating he discontinued using his walker about a month ago. Participating in outpatient PT at [facility]. Equipment Owned/DME: cane, walker Subjective: Minh states that he suffered a fall this morning due to a couple of factors. He's had ongoing left foot pain and swelling for the past week. Denies injury or exacerbating event. Pain was quite severe when he stood up out of bed this morning. He was able to take a couple of steps to try to steady himself in the doorway, but felt the right knee lock up. He got dizzy, and fell to the ground. States that he pretty effectively lowered himself, and doesn't feel that he was injured in the fall. His primary concern is the left foot pain, which is reminiscent of gout that he had in the past. Also concerned about high blood sugar reading he had this morning, reporting it was in the 300s, which is unusual for him. Denies room spinning dizziness. Admits to some anterior left knee pain. Reports feeling very concerned about returning home on his own, stating I don't think I can do it. Objective: General Observation: Resting in bed. BP cuff and pulse oximeter to LUE. IV in RUE. Diffuse swelling throughout left foot and digits, most significantly through dorsum of the foot. Left knee shows mild edema, consistent with post-op status. No significant warmth about the knee. Dusky appearance to distal LEs. Mental Status: A&Ox3 Pain: 6-7/10 with light touch to left foot diffusely ROM: Right Upper Extremity: WFL Left Upper Extremity: WFL, with pain on elevation (baseline, per patient) Right Lower Extremity: WFL. Right knee motion allows 0-120* actively. Left Lower Extremity: Left knee allows -5* extension to 90* flexion functionally. Ankle motion allows 30* arc of motion for PF/DF, both with pain. Strength: Right Lower Extremity: Able to perform SLR actively. Left Lower Extremity: Able to perform active SLR and heel slide. Active DF within limited range due to pain. Sensation: pain with light touch to dorsal and plantar aspects of left foot Bed Mobility/Transfers: Supine-sit: mod A sit-supine: mod A sit-stand: unable Gait: unable. Patient sits at EOB, but unable to rest left foot to the floor. Encouraged to stand with support to FWW and attempt graded weight shifting, but patient unable to work through pain for transfer. Balance: Static Sitting: good Dynamic Sitting: fair Static Standing: unable Dynamic Standing: unable Special Tests: Mobility Limitations Standardized Measure [facility]-PAC 6 clicks Basic Mobility Inpatient Short Form: Raw Score: 9 CMS Score: 81.35% impairment Informed Consent/Education: Patient instructed in purpose of PT consult and plan of care. Assessment: Patient is a 74 year old male referred to physical therapy services for mobility assessment in Emergency Room setting after fall at home. He presents with poorly controlled pain and subsequent inability to ambulate. Was unable to transfer beyond sitting EOB today, and required significant assistance for bed mobility; AM-PAC scores do not support return to community. Patient pcurrently demonstrates the following impairment level findings: 1. Edema of left foot 2. Poorly controlled pain 3. Decreased left ankle range of motion 4. Decreased left knee range of motion 5. Recent fall Impairments are contributing to the following functional limitations: 1. Unable to independently perform bed mobility 2. Unable to independently perform transfers 3. Unable to ambulate Patient is assessed as Moderate 64251 complexity based on the following: History: As noted above Examination: As noted above Presentation: Evolving due to recent fall in the presence of several underlying comorbidities Decision Making: Moderate complexity Plan of Care/Treatment Plan: Safety consult only. If further PT intervention is recommended, will reevaluate to establish further plan of care at that time. DISCHARGE RECOMMENDATIONS: Patient does not demonstrate mobility sufficient for safe discharge home. TREATMENT CODE/TIME: [id number] (63301) Leslee Vasquez, PT, DPT [facility] All Active Problems Acute non-ST elevation myocardial infarction (NSTEMI) (Acute) History of total left knee replacement (Acute 12/13/24) Edema (Acute) Venous insufficiency (Acute) Pain in left foot (Acute) Plantar fasciitis of left foot (Acute) Gout due to renal impairment involving toe of right foot (Acute) Hypercalcemia (Acute) Arthritis of right knee (Acute) 40MG DEPO MEDROL 08/08/24 Peripheral sensory neuropathy (Acute) Hammer toes, bilateral (Acute) Osteoarthritis of both knees (Acute) Laxity of knee joint (Acute) Sensation of knee instability (Acute) Unstable right knee (Acute) Cardiomyopathy (Acute) Toenail deformity (Acute) Coordination of complex care (Acute) Chart Review ID several Dx/Tx needing re-assessment or Hx requiring re- evaluation ([facility] apr?)(Bi-Pap ordered 12/2023, rec'd?)(Fe Infusion)(Vit D started? re-checked?)(++) Bradycardia (Acute) Noted for some time (1/2 dose trialed in 2021 before change in PCP)(chart reviewed, 05/30/23: dizziness incompletely evaluated 2' pt leaving [facility] AMA.. ACS ruled out 01/08-12/23.. Metoprolol decreased from 25mg BID per [facility], but maybe NOT implemented? ..and missed in FU! 05/30/23, sung Diuresis (Acute) actively diuresing, good results with q 2-3 days lasix (May 2023). Hx exacerbated CHF in Fall 2022 (AMA 2' intolerance diuretics, unable to get to bathroom; poor sleep 2' noise + uncomfortable bed)((Rx if HOSPTLZATN needed .. ik, 04/2023)) Pitting edema (Chronic) improved with diuretics (mar-apr 2023) .. cont q2 days.. [ ] [place] [facility] [place] for [place]o [place] Low vitamin D level (Acute) Very low, 7.9! Essential hypertension (Chronic 01/31/13) CHF (congestive heart failure), NYHA class II (Chronic) EF 40% (12/2022), decreased from 2019 .. Clinical Dx ClassII CKD (chronic kidney disease) stage 3, GFR 30-59 ml/min (Chronic) History of kidney injury (Acute) GLENYS 2' furosemide, 04/17/23, but needed for HF/Edema.. Seeing Nephrology (q uarterly) Decreased dorsalis pedis pulse (Acute) per Pod, 01/13/23 (2/4) Absence of posterior tibial pulse (Acute) per Pod, 01/13/23 Coronary artery disease (Chronic) 3-vessel (LAD, LCX, RCA) Atrial fibrillation (Chronic) Apixaban 06/22/2019 Acute exacerbation of congestive heart failure (Acute) ED --> Hospitalized for diuresis, but no mosqueda & pt unable to sleep (left AMA) Cardiomegaly (Acute) CXR; ECHO 05/2019 [facility]--LVEF 53%, +LVH (mild), no significant valvular disease; stable compared with 2017 study Anemia (Chronic) Hx of iron deficiency anemia (Acute) improved with iron infusion, but did not feel better (possible iron infusions exacerb HF? ~ Mar--Apr 2023)(doubtful based on no IVF, but possible) Fatigue (Acute) Worsened per pt, affecting ADL .. not just de-conditioning? Hyperlipidemia (Chronic 08/17/12) Osteoarthritis of right knee (Acute) DEPO MEDROL 08/14/22 Arthritis of both knees (Chronic) MERRITT (obstructive sleep apnea) (Chronic) Bi-PAP 07/23/19 Diabetes mellitus with neuropathy (Chronic) Reduced monofilament 06/24/2019 Goal A1C 7.5% or less Uncontrolled diabetes mellitus (Acute) Ortho Surgery OK < 8 (Dr. Ceja).. 10/2023 .. Goal </=7.5% Current use of insulin (Chronic) Acquired hypothyroidism (Chronic 10/28/16) High TSH, but WNL T4 (2021) .. re-checking Cervical disc disorder with myelopathy (Acute) right arm Overactive bladder (Chronic) Myrbetriq RE-started, 03/2023.. rptd improved @ 04/10/23 ov, ik .. Oxybutynin, discontinued 06/24/19 in favor of optimizing DMT2 management Unsteady gait (Acute) Dizziness incompletely evaluated 2' pt leaving [facility] AMA.. ACS ruled out 01/08- 12/23.. Metoprolol decreased from 25mg BID per [facility], but maybe NOT implemented? ..and missed in FU! 05/30/23, ik Ataxia (Acute) Asymmetrical sensorineural hearing loss (Acute) Cognitive impairment (Acute) Forgetting, but using notes/print-outs .. ex(?)- helps .. Nail dystrophy (Acute) Onychomycosis (Acute) Tinea pedis (Acute) Blisters of multiple sites (Acute ~01/13/23) 01/13/23 [facility] note- Dr. Barker: Seropurulent Blisters, B/L legs.HE Metatarsalgia of left foot (Acute) Pain of right great toe (Acute) Medical History PAD (peripheral artery disease) Left, per [facility] (12/2022) Stopped smoking with greater than 20 pack year history Lung CT Screening, 07/16/20 Epiretinal membrane (~01/2023) right eye Slow heart rate Noted for some time (1/2 dose trialed in 2021 before change in PCP)(chart reviewed, 05/30/23: dizziness incompletely evaluated 2' pt leaving [facility] AMA.. ACS ruled out 01/08-12/23.. Metoprolol decreased from 25mg BID per [facility], but maybe NOT implemented? ..and missed in FU! 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 Chronic and recurrent low back pain L4-[address] scan in 1993, recurrent since then intermittently. Hypomagnesemia (06/22/14) Only 1.0 in the ER today. Pipe smoker Surgical History History of colonoscopy (~02/2023) with Mac S/P cardiac catheterization (05/31/19) 2020 History of cataract removal with insertion of prosthetic lens (11/23/14) History of umbilical hernia repair Status post appendectomy Status post coronary artery stent placement (09/26/16) One vessel for unstable angina Status post coronary artery bypass with autogenous graft, 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) 2017 Repair of umbilical hernia Fracture, Open Treatment ORIF-LEFT SYNDESMOSIS WITH TWO SCREWS Colonoscopy - IV Sedation Extraction of cataract 11/23/14; DR. GOINS; RIGHT EYE 12/07/14; DR. GOINS; LEFT EYE Appendectomy
--- NOTE | 2025-03-01 14:07 | W.PM.HP.N ---
Date of service: 03/01/25 Time of Service: 14:07 Assessment and Plan Assessment and plan (1) Acute exacerbation of congestive heart failure: Status: Acute Assessment and plan: Hx of HEpEF as per previous echo on 09/2024 As per HPI - now receiving IV furosemide BID and will hold amlodipine and resume if BP remains stable Echo in AM daily weight , I&O Labs in AM (2) (HFpEF) heart failure with preserved ejection fraction: Status: Acute Assessment and plan: as above Ongoing jardiance (3) Pain in left foot: Status: Acute Assessment and plan: Patient has concerns for gout - will order a uric acid level Will schedule acetaminophen as we exercice caution in adding NSAID. with CDK and intensive diuretic therapy (4) Anemia: Status: Chronic Assessment and plan: Stable CBC in AM (5) Hyperlipidemia: Status: Chronic Assessment and plan: On home meds (6) MERRITT (obstructive sleep apnea): Status: Chronic Assessment and plan: On home NIV- bring from home and continue as per home settings (7) Acquired hypothyroidism: Status: Chronic Assessment and plan: On home medicine regimen (8) HTN (hypertension): Status: Chronic Assessment and plan: holding Norvasc- resume if BP remains stable with diuresis Ongoing Losartan (9) Atrial fibrillation: Status: Chronic Assessment and plan: On home medicine regimen - coreg On Eliquis (10) Diabetes mellitus: Status: Chronic Assessment and plan: Gluc AC and HS and SSI coverage at meal times Continue NPH home dose and adjust PRN Resume outpatient therapy on discharge Discussed with Dr. Bowman History of Present Illness History of Present Illness Chief Complaint: Difficulty ambulating , left foot swelling and pain Narrative: Olaf Still is a 74 year old male patient with past medical history of hypothyroidism, CKD HFpEF LVEF 55% in 12/2024 and on oral lasix which he reported not taking d/t left foot swelling and increasing pain during ambulation to the bathroom for voids. The patient reporting falling at home after his right knee buckled w/o head strike from his right knee buckling. Cr 1.8 around baseline BNP 1526 with previous 3526, EKG - atrial fibrillation MVR w/o sign of coronary occlusion. The patient received IV lasix in the ED. The patient was seen by physical therapy and deemed unsafe to go home. The patient will be admitted to the medical surgical floor with telemetry evaluation and management of HEpEF exacerbation for further diuresis and echocardiogram. The patient reports: Left foot pain and swelling with concern for gout d/t remote history, right knee buckling at times , recent left knee arthroplasty The patient denies:Dizziness, shortness of breath, chest pain, nausea, vomiting diarrhea or dysuria Code status confirmed: Full code Review of Systems All systems reviewed & are unremarkable except as noted in HPI and below PFSH All Active Problems (Updated 03/01/25 @ 17:17 by Hailey Metcalf APRN) HTN (hypertension) (Chronic) Diabetes mellitus (Chronic) (HFpEF) heart failure with preserved ejection fraction (Acute) Acute non-ST elevation myocardial infarction (NSTEMI) (Acute) History of total left knee replacement (Acute 12/13/24) Edema (Acute) Venous insufficiency (Acute) Pain in left foot (Acute) Plantar fasciitis of left foot (Acute) Gout due to renal impairment involving toe of right foot (Acute) Hypercalcemia (Acute) Arthritis of right knee (Acute) 40MG DEPO MEDROL 08/08/24 Peripheral sensory neuropathy (Acute) Hammer toes, bilateral (Acute) Osteoarthritis of both knees (Acute) Laxity of knee joint (Acute) Sensation of knee instability (Acute) Unstable right knee (Acute) Cardiomyopathy (Acute) Toenail deformity (Acute) Coordination of complex care (Acute) Chart Review ID several Dx/Tx needing re-assessment or Hx requiring re-evaluation ([facility] dec?)(Bi-Pap ordered 12/2023, rec'd?)(Fe Infusion)(Vit D started? re-checked?)(++) Bradycardia (Acute) Noted for some time (1/2 dose trialed in 2021 before change in PCP)(chart reviewed, 05/30/23: dizziness incompletely evaluated 2' pt leaving [facility] AMA.. ACS ruled out 01/08-12/23.. Metoprolol decreased from 25mg BID per [facility], but maybe NOT implemented? ..and missed in FU! 05/30/23, ik Diuresis (Acute) actively diuresing, good results with q 2-3 days lasix (May 2023). Hx exacerbated CHF in Fall 2022 (AMA 2' intolerance diuretics, unable to get to bathroom; poor sleep 2' noise + uncomfortable bed)((Rx if HOSPTLZATN needed .. ik, 04/2023)) Pitting edema (Chronic) improved with diuretics (mar-apr 2023) .. cont q2 days.. [ ] cardio [facility] [place]eval for [place]o surgery Low vitamin D level (Acute) Very low, 7.9! Essential hypertension (Chronic 01/31/13) CHF (congestive heart failure), NYHA class II (Chronic) EF 40% (12/2022), decreased from 2019 .. Clinical Dx ClassII CKD (chronic kidney disease) stage 3, GFR 30-59 ml/min (Chronic) History of kidney injury (Acute) GLENYS 2' furosemide, 04/17/23, but needed for HF/Edema.. Seeing Nephrology (quarterly) Decreased dorsalis pedis pulse (Acute) per Pod, 01/13/23 (2/) Absence of posterior tibial pulse (Acute) per Pod, 01/13/23 Coronary artery disease (Chronic) 3-vessel (LAD, LCX, RCA) Atrial fibrillation (Chronic) Apixaban 06/22/2019 Acute exacerbation of congestive heart failure (Acute) ED --> Hospitalized for diuresis, but no mosqueda & pt unable to sleep (left AMA) Cardiomegaly (Acute) CXR; [place] [facility] [place]%, +LVH (mild), no significant valvular disease; stable compared with 2017 study Anemia (Chronic) Hx of iron deficiency anemia (Acute) improved with iron infusion, but did not feel better (possible iron infusions exacerb HF? ~ Mar--Apr 2023)(doubtful based on no IVF, but possible) Fatigue (Acute) Worsened per pt, affecting ADL .. not just de-conditioning? Hyperlipidemia (Chronic 08/17/12) Osteoarthritis of right knee (Acute) DEPO MEDROL 08/14/22 Arthritis of both knees (Chronic) MERRITT (obstructive sleep apnea) (Chronic) Bi-PAP 07/23/19 Diabetes mellitus with neuropathy (Chronic) Reduced monofilament 06/24/2019 Goal A1C 7.5% or less Uncontrolled diabetes mellitus (Acute) Ortho Surgery OK < 8 (Dr. Ceja).. 10/2023 .. Goal </=7.5% Current use of insulin (Chronic) Acquired hypothyroidism (Chronic 10/28/16) High TSH, but WNL T4 (2021) .. re-checking Cervical disc disorder with myelopathy (Acute) right arm Overactive bladder (Chronic) Myrbetriq RE-started, 03/2023.. rptd improved @ 04/10/23 ov, ik .. Oxybutynin, discontinued 06/24/19 in favor of optimizing DMT2 management Unsteady gait (Acute) Dizziness incompletely evaluated 2' pt leaving [facility] AMA.. ACS ruled out 01/08-12/23.. Metoprolol decreased from 25mg BID per [facility], but maybe NOT implemented? ..and missed in FU! 05/30/23, ik Ataxia (Acute) Asymmetrical sensorineural hearing loss (Acute) Cognitive impairment (Acute) Forgetting, but using notes/print-outs .. ex(?)- helps .. Nail dystrophy (Acute) Onychomycosis (Acute) Tinea pedis (Acute) Blisters of multiple sites (Acute ~01/13/23) 01/13/23 [facility] note- Dr. Barker: Seropurulent Blisters, B/L legs.HE Metatarsalgia of left foot (Acute) Pain of right great toe (Acute) Medical History PAD (peripheral artery disease) Left, per [facility]VAL[facility] (12/2022) Stopped smoking with greater than 20 pack year [address] Screening, 07/16/20 Epiretinal membrane (~01/2023) right eye Slow heart rate Noted for some time (1/2 dose trialed in 2021 before change in PCP)(chart reviewed, 05/30/23: dizziness incompletely evaluated 2' pt leaving [facility] AMA.. ACS ruled out 01/08-12/23.. Metoprolol decreased from 25mg BID per [facility], but maybe NOT implemented? ..and missed in FU! 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 Chronic and recurrent low back pain L4-[address] scan in 1993, recurrent since then intermittently. Hypomagnesemia (06/22/14) Only 1.0 in the ER today. Pipe smoker Surgical History History of colonoscopy (~02/2023) with Mac S/P cardiac catheterization (05/31/19) 2019 History of cataract removal with insertion of prosthetic lens (11/23/14) History of umbilical hernia repair Status post appendectomy Status post coronary artery stent placement (09/26/16) One vessel for unstable angina Status post coronary artery bypass with autogenous graft, 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) 2016 Repair of umbilical hernia Fracture, Open Treatment ORIF-LEFT SYNDESMOSIS WITH TWO SCREWS Colonoscopy - IV Sedation Extraction of cataract 11/23/14; DR. GOINS; RIGHT EYE 12/07/14; DR. GOINS; LEFT EYE Appendectomy Family History Father Diabetes Dementia Neoplasm PANCREATIC Social History Smoking/Tobacco Use Status: Former Tobacco Use Quit Date: 01/02/17 Pack-years: 40 Tobacco: How many years used: 40 Quit status: has quit before Smoking risk assessment performed?: Yes Alcohol Intake: former Counseling given: Yes Counseling provided: reduce to 2 or less/day Details: 2-3 oz at a time Drug use: Never Substance use type: does not use Adopted: No Caregiver/Support person: No Foster care: No Household members: none and other Details: Cats Housing: house Number of Children: 3 number of grandchildren: 4 Communication Needs: None Do you need help understanding health information?: Rarely Pets and animals: Yes Pets and animals: cat(s) Do you think of yourself as: straight/heterosexual Current gender identity: male What is your relationship status?: How often do you talk on the phone with friends or family?: three or more times per week How often do you get together with friends or relatives?: twice per week Panel score (0-1 are the most socially isolated patients): 1 What type of physical activity do you participate in: other Details: Tredmill Duration: 45-60 minutes/day Frequency: 5-6 times per week Special isi needs: No Seatbelt use: always Helmet use: Yes Helmet use: always Drive intox 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 commercial collections driver: No Working smoke detector in home: No Fire extinguisher in home: No Carbon monox detector in home: No Do you feel safe at home: Yes Do you feel safe in your relationship?: Yes Meds Allergies and Home Medications Allergies Allergy/AdvReac Type Severity Reaction Status Date / Time No Known Allergies Allergy Verified 03/01/25 14:00 Home Medications Medication Instructions Recorded Confirmed Type aspirin 81 mg tablet,delayed 81 mg PO DAILY 06/02/19 03/01/25 History release lancets 28 gauge (FreeStyle #400 ea 02/11/21 03/01/25 Rx Lancets) pen needle, diabetic 32 gauge x #400 ea 03/25/21 03/01/25 Rx /32 (BD Ultra-Fine Amber Pen Needle) flash glucose scanning reader #1 ea 11/17/21 03/01/25 Rx (FreeStyle Bahman 2 [place]) blood sugar diagnostic (Blood #400 ea 12/13/21 03/01/25 Rx Glucose Test strips) flash glucose sensor (FreeStyle #2 ea 11/27/22 03/01/25 Rx Bahman 2 Sensor kit) insulin aspart U-100 100 unit/mL See Rx Instructions .Route 05/29/23 03/01/25 Rx (3 mL) subcutaneous pen (Novolog .COMPLEX #90 mL FlexPen U-100 Insulin aspart) apixaban 5 mg tablet (Eliquis) 5 mg PO BID #180 tabs 07/22/23 03/01/25 Rx empagliflozin 25 mg tablet See Rx Instructions .Route 08/04/23 03/01/25 Rx (Jardiance) .COMPLEX #90 tabs rosuvastatin 40 mg tablet See Rx Instructions .Route 09/16/23 03/01/25 Rx .COMPLEX #90 tabs Knee Brace - STABILIZING #1 ea 10/25/23 03/01/25 Rx fenofibrate nanocrystallized 145 145 mg PO DAILY #90 tab-caps 10/23/24 10/29/25 Rx mg tablet (Tricor) semaglutide 1 mg/dose (4 mg/3 mL) 1 mg (0.75 mL) subcut QWEEK #3 mL 04/14/24 03/01/25 Rx subcutaneous pen injector mirabegron 50 mg tablet,extended 50 mg PO DAILY #90 tabs 04/28/24 03/01/25 Rx release 24 hr (Myrbetriq) furosemide 40 mg tablet 40 mg PO DAILY PRN LEG SWELLING 05/03/24 03/01/25 Rx #90 tabs levothyroxine 50 mcg tablet See Rx Instructions .Route 05/03/24 03/01/25 Rx .COMPLEX #90 tabs nitroglycerin 0.4 mg sublingual 0.4 mg sublingual Q5M PRN chest 05/03/24 03/01/25 Rx tablet pain #90 tabs losartan 25 mg tablet See Rx Instructions .Route 07/06/24 03/01/25 Rx .COMPLEX #90 tabs ketoconazole 2 % topical cream 1 applic topical DAILY #120 grams 11/28/24 03/01/25 Rx insulin glargine 100 unit/mL (3 65 unit subcut QPM 12/08/24 03/01/25 History mL) subcutaneous pen (Lantus Solostar U-100 Insulin) acetaminophen 500 mg tablet 1,000 mg (2 x 500 mg) PO Q8H PRN 12/13/24 03/01/25 Rx pain #90 tabs gabapentin 300 mg capsule 300 mg PO QHS #14 caps 12/13/24 03/01/25 Rx meloxicam 15 mg tablet 15 mg PO DAILY #30 tabs 12/13/24 03/01/25 Rx pantoprazole 40 mg tablet,delayed 40 mg PO DAILY #14 tabs 12/13/24 03/01/25 Rx release ergocalciferol (vitamin D2) 1,250 1,250 mcg PO .WEEKLY 12/15/24 03/01/25 History mcg (50,000 unit) capsule (Vitamin D2) amlodipine 2.5 mg tablet 2.5 mg PO DAILY 12/21/24 03/01/25 History ezetimibe 10 mg tablet 10 mg PO DAILY 12/21/24 03/01/25 History carvedilol 3.125 mg tablet 3.125 mg PO BID #180 tabs 12/30/24 03/01/25 Rx oxycodone 5 mg tablet 5 mg PO QHS PRN pain #14 tabs 02/07/25 03/01/25 Rx docusate sodium 100 mg capsule 100 mg PO BID PRN 03/01/25 03/01/25 History (Colace) trazodone 50 mg tablet 50 mg PO QHS 03/01/25 03/01/25 History Exam Narrative Exam Narrative: Alert and oriented X4 , no acute distress, neurologically intact, S1 S2 irregular , no murmur, abdomen is large obese, soft non-tender, left foot edema with painful toes Results Labs 03/01/25 12:34 03/01/25 12:34 Labs: Laboratory Results - last 24 hr 03/01/25 12:34 WBC 12.83 H RBC 3.85 L Hgb 12.4 L Hct 37.7 L MCV 98 H MCH 32.2 MCHC 32.9 RDW 12.9 Plt Count 293 MPV 11.4 H Immature Gran % 0.5 Neutrophils % 77.9 Lymphocytes % 11.9 Monocytes % 8.7 Eosinophils % 0.8 Basophils % 0.2 Nucleated RBC % 0.0 Absolute Neutrophils 9.99 H Absolute Lymphocytes 1.53 Absolute Monocytes 1.12 H Absolute Eosinophils 0.10 Absolute Basophils 0.03 Sodium 140 Potassium 4.2 Chloride 102 Carbon Dioxide 28.3 Anion Gap 9.7 BUN 49 H Creatinine 1.8 H Est GFR (CKD-EPI 2020) 39.50 Glucose 136 H Calcium 9.6 Magnesium 2.2 Total Bilirubin 0.5 AST 21 ALT 23 Alkaline Phosphatase 65 NT-Pro-B Natriuret Pep 1526 H Total Protein 7.4 Albumin 3.8 Last Vital Signs Temp 36.6 C 03/01/25 10:45 Pulse 59 L 03/01/25 13:50 Resp 16 03/01/25 13:51 BP 140/36 L 03/01/25 13:50 Pulse Ox 100 03/01/25 13:51 Time Spent Time spent with Patient: >75 minutes Time was spent: preparing to see the patient(eg.review tests), obtaining and/or reviewing separately otained hiistory, ordering medications,tests, procedures, referring, communicating with other health health care aide, indepentently interpreting results, counseling the patient, care coordination and other
--- NOTE | 2025-03-01 15:09 | W.PC.ACHO ---
Registration Status: REG ER Primary Language: Preferred Language: Korean ED Information & Data Chief Complaint Dizzy/Sync 03/01/25 12:59 Chief Complaint Dizzy/Sync 03/01/25 12:50 Triage Note BIBA for dizziness and left 03/01/25 10:45 foot pain. Pt reports he did fall this morning, but landed on his bed, remains uninjured. Feels lightheaded rather than the room spinning. Denies chest pain, MOSS, or SOB. Medical / Surgical History PAD (peripheral artery disease) Stopped smoking with greater than 20 pack year history Epiretinal membrane (~01/2023) Slow heart rate Obesity Tubular adenoma of colon (~02/2023) Abrasion of skin of right lower leg Acute medial meniscus tear of right knee SARS-CoV-2 positive (~04/2021) Left ankle sprain Abnormal nuclear stress test History of nicotine dependence Tendinitis of right shoulder Sensorineural hearing loss, bilateral (02/15/15) Maisonneuve fracture of left fibula (05/07/16) Low back pain Kidney stone Erectile dysfunction of organic origin (08/07/15) Depressive disorder Bursitis of shoulder, right, adhesive (04/06/15) H/O renal calculi Umbilical hernia Chronic and recurrent low back pain Hypomagnesemia (06/22/14) Pipe smoker (Last Reviewed 12/30/24 @ 10:09 by Yane Willingham MD) History of colonoscopy (~02/2023) S/P cardiac catheterization (05/31/19) History of cataract removal with insertion of prosthetic lens (11/23/14) History of umbilical hernia repair Status post appendectomy Status post coronary artery stent placement (09/26/16) Status post coronary artery bypass with autogenous graft, 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) Repair of umbilical hernia Fracture, Open Treatment Colonoscopy - IV Sedation Extraction of cataract Appendectomy Most Recent Vital Signs Temperature 36.6 C 03/01/25 10:45 Temperature Source Tympanic 03/01/25 10:45 Pulse 57 L 03/01/25 14:55 Pulse 77 03/01/25 15:00 Respiratory Rate 20 03/01/25 15:00 Respiratory Effort Normal, Non-Labored 03/01/25 13:01 Respiratory Depth Normal 03/01/25 13:01 Respiratory Pattern Normal 03/01/25 13:01 Blood Pressure 136/58 L 03/01/25 14:55 Blood Pressure Mean 85 03/01/25 14:55 Blood Pressure Position Sitting 03/01/25 10:45 Pulse Oximetry 99 03/01/25 14:31 Oxygen Delivery Method Room Air 03/01/25 10:45 Oxygen Flow Rate 0 03/01/25 10:45 Pain Level 3 03/01/25 10:45 Allergies No Known Allergies Allergy (Verified 03/01/25 14:00) Precautions Isolation Fall precaution 03/01/25 12:59 IV IV Catheter Type [Right Upper Saline Lock arm] IV Catheter Gauge [Right Upper 18 arm] Diagnostics 03/01/25 Range/Units 12:34 WBC 12.83 H (4.4-10.8) 10^3/uL RBC 3.85 L (4.36-5.78) 10^6/uL Hgb 12.4 L (13.5-17.5) g/dL Hct 37.7 L (40.0-50.0) % MCV 98 H (80-95) fL MCH 32.2 (27.0-33.0) pg MCHC 32.9 (32.0-36.0) % RDW 12.9 (11.8-14.1) % Plt Count 293 (130-400) 10^3/uL MPV 11.4 H (8.0-11.0) fL Immature Gran % 0.5 % Neutrophils % 77.9 % Lymphocytes % 11.9 % Monocytes % 8.7 % Eosinophils % 0.8 % Basophils % 0.2 % Nucleated RBC % 0.0 (0.0-0.3) % Absolute Neutrophils 9.99 H (1.2-6.7) 10^3/uL Absolute Lymphocytes 1.53 (1.2-3.4) 10^3/uL Absolute Monocytes 1.12 H (0.1-0.8) 10^3/uL Absolute Eosinophils 0.10 (0.0-0.7) 10^3/uL Absolute Basophils 0.03 (0.0-0.2) 10^3/uL Sodium 140 (136-145) mmol/L Potassium 4.2 (3.5-5.1) mmol/L Chloride 102 (98-107) mmol/L Carbon Dioxide 28.3 (21.0-32.0) mmol/L Anion Gap 9.7 (3-11) mmol/L BUN 49 H (7-18) mg/dL Creatinine 1.8 H (0.70-1.30) mg/dL Est GFR (CKD-EPI 2020) 39.50 (mL/min/1.73m2) Glucose 136 H (74-106) mg/dL Calcium 9.6 (8.5-10.1) mg/dL Magnesium 2.2 (1.8-2.4) mg/dL Total Bilirubin 0.5 (0.2-1.0) mg/dL AST 21 (15-37) U/L ALT 23 (16-63) U/L Alkaline Phosphatase 65 (46-116) U/L NT-Pro-B Natriuret Pep 1526 H (<300) pg/mL Total Protein 7.4 (6.4-8.2) g/dL Albumin 3.8 (3.4-5.0) g/dL Intake and Output - 24 Hour Total 03/01/25 10:09 thru 03/01/25 14:54 Intake Total 10 Output Total 400 Balance -390 Weight 158.757 kg Intake: IV 10 Output: Urine 400 Other: # Voids 1 Falls Risk Assessment History of Falls Admit Due to Fall 03/01/25 12:34 Contributing Factors Impairments 03/01/25 12:34 Ambulatory Aids Uses ambulatory device + 03/01/25 12:34 Tubes/Lines With any additional score 03/01/25 12:34 Gait Evaluation W/any additional score 03/01/25 12:34 Cognition No cognitive impairment 03/01/25 12:34 Fall Total Score 98 03/01/25 12:34 Level of Risk Maximum Risk 03/01/25 12:34 v v v v v v v v v Sending and/or Receiving Nurses: Please use comment section below to note any information pertinent to the patient hand-off not included above. Information / Comments: Intial report called for at 1452, told they will call back. Return call received at 1456. PT deemed pt unsafe to to home as he lives alone and has trouble weight bearing on his left foot. Left foot is noted to be swollen per ED. 18 G R upper arm. Recieved IVP 40 mg lasix, 300 mL voided in ED. Report received from: Dougie Eddy ED RN
--- NOTE | 2025-03-01 16:35 | PHA.REVIEW2 ---
Pharmacy Admission Review Admission Clinical Review Admission Pharmacy Review: Unsteady gait (Acute) No Known Allergies Allergy (Verified 03/01/25 14:00) Resuscitation Status Full Code Height 5 ft 10 in Weight 126.915 kg Pharmacy Admission Review Renal Dosing Renal Dosing: BUN 49 mg/dL (7-18) H 03/01/25 12:34 Creatinine 1.8 mg/dL (0.70-1.30) H 03/01/25 12:34 Medications needing adjustments: Reviewed (CrCl 49.62 mL/min) List of meds needing interventions: Current medications are okay Anticoagulation Anticoagulation: Hgb 12.4 g/dL (13.5-17.5) L 03/01/25 12:34 Hct 37.7 % (40.0-50.0) L 03/01/25 12:34 Plt Count 293 10^3/uL (130-400) 03/01/25 12:34 Creatinine 1.8 mg/dL (0.70-1.30) H 03/01/25 12:34 DVT Prophylaxis: Reviewed Medications: Apixaban (5mg PO BID) Opiate Usage Evaluate Pain Scale/Pains Meds: Reviewed (oxycodone 5mg HS PRN - no doses given) Scheduled Bowel Reg ordered if on Opiates?: Yes (BID docusate) Relevant Labs Relevant Labs: Sodium 140 mmol/L (136-145) 03/01/25 12:34 Potassium 4.2 mmol/L (3.5-5.1) 03/01/25 12:34 Chloride 102 mmol/L (98-107) 03/01/25 12:34 Magnesium 2.2 mg/dL (1.8-2.4) 03/01/25 12:34 Electrolytes, C-Reactive P, ESR: Reviewed (WBC 12.83) DM Control DM Control: Glucose 136 mg/dL (74-106) H 03/01/25 12:34 DM Control: Reviewed Insulin Dosing, Diabetic Medication: Has order for glargine 65 units at bedtime Cardiac Review Cardiac Review: NT-Pro-B Natriuret Pep 1526 pg/mL (<300) H 03/01/25 12:34 Blood Pressure 121/52 1550 Blood Pressure 136/58 1455 Blood Pressure 128/52 1431 Blood Pressure 125/60 1416 Blood Pressure 159/64 1401 Blood Pressure 140/36 1350 Blood Pressure 100/65 1045 BP, HR, EF%: Reviewed (HR WNL) List meds needing interventions: Has orders for amlodipine 2.5mg daily, carvedilol 3.125mg BID, furosemide 40mg IVP BID and losartan 25mg daily QTc Review QTc: Reviewed (488 from 03/01/25) IV to PO Switch IV Medications: Reviewed (furosemide) Home Meds Home Med List reviewed: Intervened Relevent Home Meds Not ordered & why?: Jardiance, Ozempic and trazodone Asked provider about Jardiance and trazodone - waiting to hear back from provider Meloxicam and oxycodone are listed on home med list as not taking but both were ordered. Reached out to provider to make sure they do want those. Waiting to hear back. Current Meds Current Medication Order Review: Reviewed
[2025-03-01] MEDS: Apixaban 5 MG TAB PO (19:51)
[2025-03-01] MEDS: Gabapentin 300 MG CAP PO (19:51)
[2025-03-01] MEDS: Carvedilol 3.125 MG TAB PO (19:52)
[2025-03-01] MEDS: Acetaminophen 500 MG TAB 1000 MG PO (19:58)
[2025-03-01] MEDS: Docusate Sodium 100 MG CAP PO (19:58)
[2025-03-01] MEDS: traZODone 50 MG TAB PO (19:58)
[2025-03-01] MEDS: Insulin Glargine 300 UNITS/3 ML PEN 65 UNITS SC (21:22)
[2025-03-01] MEDS: Normal Saline Flush 10 ML SYR IVP (21:23)
[2025-03-02 04:30] VITALS: BP 142/58; PULSE 63; RESP 16; TEMP 35.9; O2SAT 99
[2025-03-02] MEDS: Acetaminophen 500 MG TAB 1000 MG PO ×3 (04:32→20:05)
[2025-03-02] MEDS: Levothyroxine 50 MCG TAB PO (05:50)
[2025-03-02 07:02] LABS: Uric Acid 8.9 mg/dL (3.5-7.2)
[2025-03-02 07:28] VITALS: BP 126/52; PULSE 60; RESP 16; TEMP 36.8; O2SAT 96
--- NOTE | 2025-03-02 08:00 | DI.US_ITS ---
APPROVED REPORT EXAM: Comprehensive 2D, Doppler, and color-flow Echocardiogram Patient Location: In-Patient Room/Bed: 210 Projection Camera Operator: Erika Ch RDCS (AE) Indications: CHF Other Information Study Quality: Poor. Technically limited study due to body habitus, inability to position patient exam done supine bedside. Conclusion Grossly normal left ventricular wall thickness chamber size and systolic function. Ejection fraction is 55% Right ventricle, left and right atria are not well-visualized Within the limits of the study, no significant valvular disease is identified Estimated right ventricular systolic pressure is 29 mmHg There is overall no discernible significant change compared to the study of September 2024 Wall motion Left Ventricle The left ventricle is normal size. Technically limited apical imaging window. Unable to position patient. The overall left ventricular systolic function appears normal. There is normal left ventricular wall thickness. Regional wall motion is not well visualized but grossly normal. There is no ventricular septal defect visualized. LVEF is 55%. Right Ventricle Right ventricle is not well visualized. Right ventricular systolic function could not be assessed. Atria Left atrium is not well visualized. Right atrium is not well visualized. Aortic Valve The aortic valve is normal in structure. Aortic valve is trileaflet. There is no aortic valvular stenosis. No aortic regurgitation is present. Mitral Valve The mitral valve is normal in structure. No evidence of mitral valve stenosis. Trace to mild mitral regurgitation. Tricuspid Valve The tricuspid valve is normal in structure. There is no tricuspid valve stenosis. Trace tricuspid regurgitation. The RVSP is 29.0mmHg. Pulmonic Valve The pulmonary valve is normal in structure. There is no pulmonic valvular stenosis. There is no pulmonic valvular regurgitation. Great Vessels The aortic root is normal in size. The ascending aorta is normal in size. IVC is normal in size and collapses >50% with inspiration. Pericardium Technically limited subcostal images. 2D Dimensions IVSD d PLAX 1.10 cm M: 0.6-1.2 Ao Root d 2.96 cm M: 3.1 - 3.7 LVPW d PLAX 1.12 cm M: 0.6 - 1.2 Ao Asc Diam d 3.44 cm M: 2.6 - 3.4 LVID d PLAX 5.30 cm M: 4.2 - 5.8 LVDs 3.73 cm M: 2.5 - 4.0 LV EF Teichholz 55.4 % FS 29.06 % LV EDV (Teich) 132.7 mL LV ESV (Teich) 59.2 mL LV Diastology MV E' medial 0.080 (>0.07 m/s) MV E Vmax 1.17 (0.4-1.3 m/s) MV E/E' MED 14.59 (<14) MV E' lateral 0.111 (>0.1 m/s) MV E/E' LAT 10.55 (<14) MV E' Average 0.096 m/s MV E/E'(average) 12.25 Aortic Valve AoV Vmax 1.47 m/s LVOT Vmax 0.76 m/s AoV Peak Grad 8.7 mmHg LVOT Peak Grad 2.3 mmHg AoV Area (Vmax) 1.40 cm2 LVOT VTI 0.155 m AoV VTI 0.291 m LVOT Mean Grad 1.3 mmHg AoV Mean Akbar. 1.01 m/s LVOT SV 42.02 mL AoV Mean Grad 4.8 mmHg LVOT Diam s 1.85 cm AoV Area (VTI) 1.44 cm2 AV Regurg Peak Gr. 8.70 mmHg Velocity Ratio 0.52 Mitral Valve MV DT 225 (160-240 msec) MV Vmax TIPS 1.03 m/s MV Mean Grad 1.4 (<2mmHg) MV VTI 0.267 m Pulmonary Valve PV Vmax 1.22 (0.5-1.5 m/s) RVOT Vmax 0.87 m/s PV Peak Grad 5.9 mmHg RVOT Peak Gr. 3.0 mmHg PV Mean Akbar 0.81 m/s RVOT VTI 0.144 m PV Mean Grad 3.1 mmHg RVOT Mean Gr. 1.5 mmHg Tricuspid Valve RA Pressure 3.00 mmHg TR Vmax 2.55 m/s TV S' 0.07 m/s TR Peak Grad 26.0 mmHg RVSP (TR) 29.0 mmHg
[2025-03-02 08:46] VITALS: O2SAT 97
[2025-03-02] MEDS: Carvedilol 3.125 MG TAB PO ×2 (08:47→19:42)
[2025-03-02] MEDS: Docusate Sodium 100 MG CAP PO ×2 (08:47→19:41)
[2025-03-02] MEDS: Empaglifozin 25 MG TAB PO (08:47)
[2025-03-02] MEDS: Losartan 25 MG TAB PO (08:47)
[2025-03-02] MEDS: Mirabegron 50 MG TABCR PO (08:47)
[2025-03-02] MEDS: Apixaban 5 MG TAB PO ×2 (08:48→19:42)
[2025-03-02] MEDS: Aspirin E.C. 81 MG TABEC PO (08:48)
[2025-03-02] MEDS: Pantoprazole 40 MG TABCR PO (08:48)
[2025-03-02] MEDS: Rosuvastatin 20 MG TAB 40 MG PO (08:48)
[2025-03-02] MEDS: Furosemide 40 MG/4 ML VIAL IVP (08:59)
[2025-03-02] MEDS: Fenofibrate, Micronized 145 MG TAB PO (08:59)
[2025-03-02] MEDS: Ezetimibe 10 MG TAB PO (08:59)
[2025-03-02] MEDS: Normal Saline Flush 10 ML SYR IVP ×2 (08:59→19:43)
--- NOTE | 2025-03-02 09:16 | PDOC.CMIN ---
Date of service: 03/02/25 Time of Service: 09:16 Care Management Initial Assmt Initial Assessment Reason for Hospitalization: CHF exacerbation Functional Status/Living Situation Patient Presentation: Minh presented to the ED yesterday afternoon with c/o difficulty ambulating due to left foot pain/swelling that has been constant for 1 week. He had a fall at home. Minh is 11 weeks s/p left knee replacement. Minh was also found to be having an exacerbation of his CHF. He had not been taking his lasix at home. He stated to CM that the lasix makes him have to urinate too often, so he doesn't take it. He was encouraged to do so, or at least to talk to his provider about it. Minh was lying in bed when CM met with him today. He was very pleasant with CM. He stated that his left foot is really quite sore to the point that he can not walk on it. He is believed to have gout in that foot and was started on prednisone, allopurinol and colchicine. He is hopeful that these medications will help, as his right knee is not great, either, and will likely be replaced in the spring. Minh lives alone, but is fairly well supported by his siblings, children and . He receives meals on wheels, which he is grateful for, but is independent at baseline and denied the need for any increased community support. 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) Instrumental Activities of Daily Living (ADLs): Independent Medications Medication Management: No Issues/Barriers identified Physical Functioning/Mobility Assistive Device: cane Advance Directives Advance Directives: Do you have an Advance Directive: N 12/10/22, 09:22 AD On File at [facility]: N 12/10/22, 09:22 Date Asked 03/01/25 03/01/25, 06:31 AD Date Reviewed COLST On File at [facility] COLST Date Scanned Code Status Resuscitation Status Full Code Portal Pt does not currently have a portal and education provided: Yes Insurance Coverage/Financial Issues Insurance: Medicare Part A & B - [id number] [facility] MCR Supplement Care Team Visit Care Team Role Provider Type Hailey eMtcalf APRN MD [facility] STAFF PHYSICIAN Richard Jeffers Primary Care Provider NON-[facility] STAFF PHYSICIAN InPatient Pola Chauhan Other Providers OTHER [facility] PHYSICIANS ASSISTANT Caleb Bowman MD Admit Provider [facility] STAFF PHYSICIAN Attending Provider Discharge Potential Discharge Needs: Imaging/labs (echocardiogram), PT Evaluation and PCP F/U Appt Anticipated Barriers to Discharge: None Identified Patient/Family Education Needs: Review discharge instructions, discuss Ask Me Three Transportation: Private vehicle Plan: Minh will discharge home once medically stable with no new services. He will continue with outpatient PT, and f/u with his PCP and his team of specialists. Minh will transport via [facility] private vehicle. CM will continue to follow and update the plan as needed. Social Determinants of Health Screening Social Determinants of health last assessed in clinic: 03/02/25 Will the Patient Participate in the Screening?: Yes Do you worry about having a steady place to live?: no Problems where you live: no known problems In the past 12 months, have you had to go without electric, gas, oil or water in your home?: no 1. Within the past 12 months, we worried whether our food would run out before we got money to buy more.: Don't know/refused 2. Within the past 12 months, the food we bought just didn't last and we didn't have money to get more.: Don't know/refused Has lack of transportation kept you from medical appointments or from doing things needed for daily living?: no Has anyone in your life made you feel unsafe or unsupported?: no How hard is it for you to pay for the very basics like food, housing, medical care, and heating? Would you say it is:: Not hard at all Do you want help finding or keeping work or a job?: I do not need or want help If for any reason you need help with day-to-day activities such as bathing, preparing meals, shopping, managing finances, etc., do you get the help you need?: I could use a little more help How often do you feel lonely or isolated from those around you?: Sometimes Do you speak a language other than Icelandic at home?: No Does the patient want assistance with any of the above?: No Comments: Pt states he is independent at baseline. He states he will need help if he continues to have trouble weight bearing on his left foot. Health Related Social Needs Health related social needs: problems with daily activities (Z73.9) and feeling lonely/isolated (Z60.8) Health related social needs details: Pt states he is independent at baseline. He states he will need help if he continues to have trouble weight bearing on his left foot. Pt currently from his at this time. PFSH All Active Problems (Updated 03/02/25 @ 15:39 by Xiomara Ornelas NP) Gout (Acute) HTN (hypertension) (Chronic) Diabetes mellitus (Chronic) (HFpEF) heart failure with preserved ejection fraction (Acute) Acute non-ST elevation myocardial infarction (NSTEMI) (Acute) History of total left knee replacement (Acute 12/13/24) Edema (Acute) Venous insufficiency (Acute) Pain in left foot (Acute) Plantar fasciitis of left foot (Acute) Gout due to renal impairment involving toe of right foot (Acute) Hypercalcemia (Acute) Arthritis of right knee (Acute) 40MG DEPO MEDROL 08/08/24 Peripheral sensory neuropathy (Acute) Hammer toes, bilateral (Acute) Osteoarthritis of both knees (Acute) Laxity of knee joint (Acute) Sensation of knee instability (Acute) Unstable right knee (Acute) Cardiomyopathy (Acute) Toenail deformity (Acute) Coordination of complex care (Acute) Chart Review ID several Dx/Tx needing re-assessment or Hx requiring re-evaluation ([facility] dec?)(Bi-Pap ordered 12/2023, rec'd?)(Fe Infusion)(Vit D started? re-checked?)(++) Bradycardia (Acute) Noted for some time (1/2 dose trialed in 2021 before change in PCP)(chart reviewed, 05/30/23: dizziness incompletely evaluated 2' pt leaving [facility] AMA.. ACS ruled out 01/08-12/23.. Metoprolol decreased from 25mg BID per [facility]osp [facility], but maybe NOT implemented? ..and missed in FU! 05/30/23, ik Diuresis (Acute) actively diuresing, good results with q 2-3 days lasix (May 2023). Hx exacerbated CHF in Fall 2022 (AMA 2' intolerance diuretics, unable to get to bathroom; poor sleep 2' noise + uncomfortable bed)((Rx if HOSPTLZATN needed .. ik, 04/2023)) Pitting edema (Chronic) improved with diuretics (mar-apr 2023) .. cont q2 days.. [ ] [facility] [place] review/eval for ortho surgery Low vitamin D level (Acute) Very low, 7.9! Essential hypertension (Chronic 01/31/13) CHF (congestive heart failure), NYHA class II (Chronic) EF 40% (12/2022), decreased from 2019 .. Clinical Dx ClassII CKD (chronic kidney disease) stage 3, GFR 30-59 ml/min (Chronic) History of kidney injury (Acute) GLENYS 2' furosemide, 04/17/23, but needed for HF/Edema.. Seeing Nephrology (quarterly) Decreased dorsalis pedis pulse (Acute) per Pod, 01/13/23 (2/4) Absence of posterior tibial pulse (Acute) per Pod, 01/13/23 Coronary artery disease (Chronic) 3-vessel (LAD, LCX, RCA) Atrial fibrillation (Chronic) Apixaban 06/22/2019 Acute exacerbation of congestive heart failure (Acute) ED --> Hospitalized for diuresis, but no mosqueda & pt unable to sleep (left AMA) Cardiomegaly (Acute) CXR; [place] [facility] [place]%, +LVH (mild), no significant valvular disease; stable compared with 2017 study Anemia (Chronic) Hx of iron deficiency anemia (Acute) improved with iron infusion, but did not feel better (possible iron infusions exacerb HF? ~ Mar--Apr 2023)(doubtful based on no IVF, but possible) Fatigue (Acute) Worsened per pt, affecting ADL .. not just de-conditioning? Hyperlipidemia (Chronic 08/17/12) Osteoarthritis of right knee (Acute) DEPO MEDROL 08/14/22 Arthritis of both knees (Chronic) MERRITT (obstructive sleep apnea) (Chronic) Bi-PAP 07/23/19 Diabetes mellitus with neuropathy (Chronic) Reduced monofilament 06/24/2019 Goal A1C 7.5% or less Uncontrolled diabetes mellitus (Acute) Ortho Surgery OK < 8 (Dr. Ceja).. 10/2023 .. Goal </=7.5% Current use of insulin (Chronic) Acquired hypothyroidism (Chronic 10/28/16) High TSH, but WNL T4 (2021) .. re-checking Cervical disc disorder with myelopathy (Acute) right arm Overactive bladder (Chronic) Myrbetriq RE-started, 03/2023.. rptd improved @ 04/10/23 ov, ik .. Oxybutynin, discontinued 06/24/19 in favor of optimizing DMT2 management Unsteady gait (Acute) Dizziness incompletely evaluated 2' pt leaving [facility] AMA.. ACS ruled out 01/08-12/23.. Metoprolol decreased from 25mg BID per [facility], but maybe NOT implemented? ..and missed in FU! 05/30/23, ik Ataxia (Acute) Asymmetrical sensorineural hearing loss (Acute) Cognitive impairment (Acute) Forgetting, but using notes/print-outs .. ex(?)- helps .. Nail dystrophy (Acute) Onychomycosis (Acute) Tinea pedis (Acute) Blisters of multiple sites (Acute ~01/13/23) 01/13/23 [facility] note- Dr. Barker: Seropurulent Blisters, B/L legs.HE Metatarsalgia of left foot (Acute) Pain of right great toe (Acute) Medical History PAD (peripheral artery disease) Left, per OSVALDO (12/2022) Stopped smoking with greater than 20 pack year [address] Screening, 07/16/20 Epiretinal membrane (~01/2023) right eye Slow heart rate Noted for some time (1/2 dose trialed in 2021 before change in PCP)(chart reviewed, 05/30/23: dizziness incompletely evaluated 2' pt leaving [facility] AMA.. ACS ruled out 01/08-12/23.. Metoprolol decreased from 25mg BID per [facility], but maybe NOT implemented? ..and missed in FU! 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 Chronic and recurrent low back pain L4-[address] scan in 1993, recurrent since then intermittently. Hypomagnesemia (06/22/14) Only 1.0 in the ER today. Pipe smoker Surgical History History of colonoscopy (~02/2023) with Mac S/P cardiac catheterization (05/31/19) 2019 History of cataract removal with insertion of prosthetic lens (11/23/14) History of umbilical hernia repair Status post appendectomy Status post coronary artery stent placement (09/26/16) One vessel for unstable angina Status post coronary artery bypass with autogenous graft, 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) 2017 Repair of umbilical hernia Fracture, Open Treatment ORIF-LEFT SYNDESMOSIS WITH TWO SCREWS Colonoscopy - IV Sedation Extraction of cataract 11/23/14; DR. GOINS; RIGHT EYE 12/07/14; DR. GONIS; LEFT EYE Appendectomy Family History Father Diabetes Dementia Neoplasm PANCREATIC Social History Smoking/Tobacco Use Status: Former Tobacco Use Quit Date: 01/02/17 Pack-years: 40 Tobacco: How many years used: 40 Quit status: has quit before Smoking risk assessment performed?: Yes Alcohol Intake: former Counseling given: Yes Counseling provided: reduce to 2 or less/day Details: 2-3 oz at a time Drug use: Never Substance use type: does not use Adopted: No Caregiver/Support person: No Foster care: No Household members: none and other Details: Cats Housing: house Number of Children: 3 number of grandchildren: 4 Communication Needs: None Do you need help understanding health information?: Rarely Pets and animals: Yes Pets and animals: cat(s) Do you think of yourself as: straight/heterosexual Current gender identity: male What is your relationship status?: How often do you talk on the phone with friends or family?: three or more times per week How often do you get together with friends or relatives?: twice per week Panel score (0-1 are the most socially isolated patients): 1 What type of physical activity do you participate in: other Details: Tredmill Duration: 45-60 minutes/day Frequency: 5-6 times per week Special isi needs: No Seatbelt use: always Helmet use: Yes Helmet use: always Drive intox 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 otr driver: No Working smoke detector in home: No Fire extinguisher in home: No Carbon monox detector in home: No Do you feel safe at home: Yes Do you feel safe in your relationship?: Yes
--- NOTE | 2025-03-02 09:27 | PT.INPN ---
PT Notes Visit Reasons: HFpEF Exacerbation Inpatient Physical Therapy Progress Note Date: 03/02/2025 Precautions: Fall. Standard. Activity as tolerated. Subjective: Complained of L foot pain similar to how he feels when gout is afoot. Minimal pain reported in L knee as well. Unsure about transferring but wanted to try with PT and [facility] how he would do. Objective: General Observation: Patient was sitting on bedside commode and was done with voiding urine. Swelling in L leg and foot noted. Beginning erythema in L foot and toes. Mental Status: A&Ox3 Pain: 5/10 in L foot, 2-3/10 in L knee Bed Mobility/Transfers: Provided moderate verbal cueing with movement sequence for trunk flexion, hand placement, weight redistribution to B LE with R>>L to offload L foot, and for directional change. Sit to stand from bedside commode moderate assit of 2 Turn from bedside commode to bed minimal assist of 2 Stand to sit at edge of bed contact tammie assist of 2 Scoot up in bed moderate assist of 2 Gait: Patient remains highly apprehensive about walking at this time. Was happy that he could put more weight onto L foot to take one small step forward and 2-3 side step to turn prior to sitting at edge of bed. Balance: Static Sitting: Normal Dynamic Sitting: Good Static Standing: Fair Dynamic Standing: Poor Informed Consent/Education: Patient is agreeable to working gradually at getting better at walking with use of assistive device while being medically managed for this admisison. Assessment: Patient lives alone but has family who can help as needed. Pain in L foot remains but with less intensity which allowed him to carefully put weight through L LE with assistance during transfer for this session. Patient was also able to stand a total of about 10 seconds during the transfer which he said is better than how he did yesterday. Patient will need services to address functional mobility decline in anticipation of going home when medically cleared by hospitalist. Goals: Goals X1 week 1. Supine-Sit independent 2. Sit-Supine independent 3. Sit-Stand independent 4. Stand-Sit independent 5. Bed-Chair independent 6. Chair-Bed independent 7. Independent gait on level surface with use of least restrictive device for at least 150 feet without report of pain nor dyspnea 8. Independent stair negotiation while holding onto bilateral rails for at least 3 steps without report of pain nor dyspnea 9. Independent with home exercise program 10. Good static and dynamic standing balance/tolerance Plan of Care/Treatment Plan: Patient will highly benefit from skilled physical therapy services including functional mobility training, bed mobility/transfer training, gait and balance training, therapeutic exercises, therapeutic activity, caregiver/staff/family education and training 1x/day, 7 days/week x 1 week. Plan of care has been reviewed with the GAUGE MAKER providing the service under Physical Therapy direction. Initiate Physical Therapy intervention for strengthening, bed mobility, transfers, gait, stairs, balance training, use of assistive device. DISCHARGE RECOMMENDATIONS: PT vs short-term SNF based on progress towards goals TREATMENT CODE/TIME: 48205 x 2 units
--- NOTE | 2025-03-02 13:16 | PGE_ITS ---
Date of Service Date of service: 03/02/25 Time of Service: 13:16 Assessment and Plan Assessment and plan (1) Gout: Status: Acute Assessment and plan: Left great toe Initiate allopurinol 100 mg daily Start colchicine 0.6 mg daily Prednisone burst 40 mg x 3 days then 20 mg x 3 days then discontinue (2) Osteoarthritis of both knees: Status: Acute Assessment and plan: Status post left knee replacement, Pain management PT consultation Outpatient orthopedics follow-up (3) (HFpEF) heart failure with preserved ejection fraction: Status: Acute Assessment and plan: Echocardiogram unchanged from July 2024 with preserved ejection fraction at 55% Continue jardiance, beta-abdi, aspirin, ARB Stop IV diuresis as patient appears euvolemic. (4) Anemia: Status: Chronic Assessment and plan: Stable CBC in AM (5) Hyperlipidemia: Status: Chronic Assessment and plan: On home meds (6) MERRITT (obstructive sleep apnea): Status: Chronic Assessment and plan: On home NIV- bring from home and continue as per home settings (7) Acquired hypothyroidism: Status: Chronic Assessment and plan: On home medicine regimen (8) HTN (hypertension): Status: Chronic Assessment and plan: holding Norvasc- resume if BP remains stable with diuresis Continue losartan Routine blood pressure monitoring with adjustment as needed (9) Atrial fibrillation: Status: Chronic Assessment and plan: Rate controlled continue- coreg Fully anticoagulated on Eliquis (10) Diabetes mellitus: Status: Chronic Assessment and plan: Gluc AC and HS and SSI coverage at meal times Continue NPH home dose and adjust PRN Resume outpatient therapy on discharge (11) History of total left knee replacement: Status: Acute Assessment and plan: case discussed with DR Pedro Subjective Subjective Patient reports: still having pain (left great toe, pain out of proportion), tolerating liquids well, tolerating a regular diet, voiding w/o difficulty and afebrile; denies shortness of breath Interval history since last seen: c/o bilateral knee pain, chronic at baseline but states it contributes to weakness and falls Exam Narrative Exam Narrative: Obese male of stated age no acute distress head is atraumatic eyes nonicteric noninjected oral mucosas slightly dry neck full range of motion with no JVD cardiovascular regular rate no murmurs appreciated respirations even and unlabored breath sounds are clear bilaterally abdomen is obese soft nontender moves all extremities equally left great toe extremely painful to touch slight swelling minimal erythema no peripheral edema skin is dry neurologic is awake alert oriented no focal deficits psychiatric appropriate mood and affect Objective Last Vital Signs Temp 36.8 C 03/02/25 07:28 Pulse 60 03/02/25 07:28 Resp 16 03/02/25 07:28 BP 126/52 L 03/02/25 07:28 Pulse Ox 97 03/02/25 08:46 Laboratory Results - last 24 hr 03/01/25 03/02/25 12:34 06:23 Sodium 140 Potassium 4.2 Chloride 102 Carbon Dioxide 28.3 Anion Gap 9.7 BUN 49 H Creatinine 1.8 H Est GFR (CKD-EPI 2020) 39.50 Glucose 136 H Uric Acid 8.9 H Calcium 9.6 Magnesium 2.2 Total Bilirubin 0.5 AST 21 ALT 23 Alkaline Phosphatase 65 NT-Pro-B Natriuret Pep 1526 H Total Protein 7.4 Albumin 3.8 PAWSS Have you Been Recently Intoxicated or Drunk Within the Last 30 days?: No Have you Ever Experienced Previous Episodes of Alcohol Withdrawal?: No Have you ever Experienced Withdrawal Seizures?: No Have you ever Experienced Delirium Tremens(DT)s?: No Have you ever undergone Alcohol Rehabilitation Treatment (i.e, inpt ot outpat ient treatment programs)?: No Have you ever Experienced Blackouts?: No Have you ever Combined Alcohol with other Downers within the last 90 days?: No Have you ever Combined Alcohol with any other Substance of Abuse during the last 90 days?: No Positive Blood Alcohol level on Presentation? [PCS.BAL]: No Evidence of Increased Autonomic Activity (i.e. HR>120, tremor, sweating, agitation, nausea)?: No Result: 0 Time Spent with Patient Time Spent with Patient: 35-49 minutes Time was spent: obtaining and/or reviewing separately otained hiistory, ordering medications,tests, procedures, referring, communicating with other health patient care nursing assistant, indepentently interpreting results and counseling the patient
[2025-03-02] MEDS: Colchicine 0.6 MG TAB PO (13:55)
[2025-03-02] MEDS: Allopurinol 100 MG TAB PO (13:55)
[2025-03-02] MEDS: predniSONE 20 MG TAB 40 MG PO (13:55)
[2025-03-02 15:12] VITALS: BP 127/60; PULSE 61; RESP 16; TEMP 36.1; O2SAT 98
[2025-03-02 19:21] VITALS: BP 116/87; PULSE 75; RESP 16; TEMP 36.7; O2SAT 93
[2025-03-02] MEDS: Gabapentin 300 MG CAP PO (19:41)
[2025-03-02] MEDS: Insulin Glargine 300 UNITS/3 ML PEN 65 UNITS SC (19:42)
[2025-03-02] MEDS: traZODone 50 MG TAB PO (19:42)
[2025-03-02 23:29] VITALS: BP 104/58; PULSE 68; RESP 16; TEMP 36.5; O2SAT 96
[2025-03-03] VITALS (8 sets, daily range): BP systolic 110–139; BP diastolic 46–74; PULSE 63–78; RESP 16–18; TEMP 36–36.9; O2SAT 95–100
[2025-03-03] MEDS: Acetaminophen 500 MG TAB 1000 MG PO ×3 (04:33→20:20)
[2025-03-03] MEDS: Levothyroxine 50 MCG TAB PO (05:49)
[2025-03-03] MEDS: Fenofibrate, Micronized 145 MG TAB PO (09:10)
[2025-03-03] MEDS: Rosuvastatin 20 MG TAB 40 MG PO (09:10)
[2025-03-03] MEDS: Mirabegron 50 MG TABCR PO (09:10)
[2025-03-03] MEDS: Normal Saline Flush 10 ML SYR IVP ×3 (09:10→21:19)
[2025-03-03] MEDS: Colchicine 0.6 MG TAB PO (09:11)
[2025-03-03] MEDS: Ezetimibe 10 MG TAB PO (09:12)
[2025-03-03] MEDS: predniSONE 20 MG TAB 40 MG PO (09:12)
[2025-03-03] MEDS: Apixaban 5 MG TAB PO ×2 (09:13→20:20)
[2025-03-03] MEDS: Losartan 25 MG TAB PO (09:13)
[2025-03-03] MEDS: Pantoprazole 40 MG TABCR PO (09:14)
[2025-03-03] MEDS: Furosemide 40 MG TAB PO (09:14)
[2025-03-03] MEDS: Aspirin E.C. 81 MG TABEC PO (09:14)
[2025-03-03] MEDS: Carvedilol 3.125 MG TAB PO ×2 (09:14→20:20)
[2025-03-03] MEDS: Allopurinol 100 MG TAB PO (09:15)
[2025-03-03] MEDS: Empaglifozin 25 MG TAB PO (09:15)
[2025-03-03] MEDS: Docusate Sodium 100 MG CAP PO ×2 (09:15→20:20)
--- NOTE | 2025-03-03 09:53 | PTTR_ITS ---
PT Notes Visit Reasons: HFpEF Exacerbation Inpatient Physical Therapy Treatment Note [facility] Date: 03/03/2025 PRECAUTIONS: Fall, standard , mosqueda SUBJECTIVE: Pt stated they were able to go from bed to commode this morning but it was a struggle. After one attempt sit to stand from EOB, pt asked if we could defer treatment to tomorrow because he was in pain in his left foot. Pt rated pain as below. PT encouraged him, and explained movement will benefit him and his pain. PT also explained that we would have to let the physician know if he was refusing treatment. From that point the pt stated they would give it another try. Pt reports he has a sit to stand assist chair at home. Pt has a single point cane here at hospital. He reports he has a FWW at home but will need assistance to get from RCT vehicle into home. OBJECTIVE: General observations: Pt was laying in bed when PT walked in, with nursing providing the pt with his medications. Pt had the commode set up next to his bed (less than a foot). Pt has a mosqueda in place. Pt was adamant about not transferring from bed to chair with FWW. Once the pt was informed the physician would be aware if the pt declined PT, the pt became more accepting with the transfer. As the pt was transferring from bed to chair FWW, pt didn’t perform full step. Pt would pivot / swivel their body by pushing weight through their right LE allowing him to put less weight on their L LE. Pt appeared to not push through the FWW while putting weight on L LE. Once seated ,PT adjusted the walker lower to allow the pt to straighten his arms and hopefully push through the FWW more. PAIN: 5/10 in Left foot while Lying in bed. From gout 7/10 in Left foot Ambulating FWW. From gout VITALS: Monitored by Nursing Therapeutic Activities ([id number][]): Direct one-on-one instruction in dynamic activities to improve functional performance. BED MOBILITY/TRANSFERS Rolling L/R: Min A of 1 Supine-sit: Min A of 1 with HOB upright Sit-stand from EOB: Mod A of 2. More assistance on Left side of body. Pt has difficulties flexing his left knee to have his knee ( recent TKA) underneath him, to allow him to push more weight through L leg because of the pain in L foot. Stand-sit: Mod A of 1 Bed-Chair: swivel/pivot Min A of 1. Pt stated they were in a great deal of pain 7/10 in their L foot. Attempted to take steps forward 3.5 feet however unable to clear either foot requiring swiveling on RLE and PWB on LLE for balance Provided skilled cues and instruction on performance and technique throughout. ASSESSMENT: Pt pain in L foot greatly hindered pt ability to functionally sit to stand, transfer to bed independently, and activity tolerance. If pain is less, anticipate pt will be able to take steps with use of FWW. Pt would benefit from skilled physical therapy to help address his functional concerns and increase the patient’s independence and activity tolerance. PLAN: 1-2x/day, 7 days/week x 1 week. Plan of care has been reviewed with the MEDICAL DEVICE ASSEMBLER providing the service under Physical Therapy direction. Initiate Physical Therapy intervention for strengthening, bed mobility, transfers, gait, stairs, balance training, use of assistive device. TREATMENT CODE/TIME: 38904/ [id number] DISCHARGE RECOMMENDATION: SNF vs HHPT
[2025-03-03] MEDS: Ergocalciferol 50000 UNITS CAP PO (10:10)
--- NOTE | 2025-03-03 12:40 | PDOC.CMPRO ---
Date of service: 03/03/25 Time of Service: 12:40 Care Management Progress Note Progress Note Text Progress Note Text: Minh was sitting up in the bedside chair when CM met with him today. He was very pleasant with CM, but stated that he is worried about going home, as he is still not able to bear full weight on his left foot. He is feeling better, but he is concerned that he has a long, unsteady walk to his front door, and he is taking RCT home, which would not be able to assist him. PT also stated concerns that he is still not full weight bearing, and he lives alone. CM discussed the above concerns with his provider, and Minh will be staying tonight with planned discharge for tomorrow. Home address for RCT : [address] [place] [address] Discharge Potential Discharge Needs: PCP F/U Appt and Other (continue with outpatient PT) Anticipated Barriers to Discharge: None Identified Patient/Family Education Needs: Review discharge instructions, discuss Ask Me Three Transportation: RCT RCT Transportation: Private [employer] (may be able to secure a private ride on Thursday) Plan: Minh will be discharged tomorrow with no new services. He will f/u with his PCP, continue his outpatient PT and continue per his plan of care. Minh may need an RCT ride. CM will continue to follow. Social Determinants of Health Screening Social Determinants of health last assessed in clinic: 03/03/25 Will the Patient Participate in the Screening?: Yes Do you worry about having a steady place to live?: no Problems where you live: no known problems In the past 12 months, have you had to go without electric, gas, oil or water in your home?: no 1. Within the past 12 months, we worried whether our food would run out before we got money to buy more.: Don't know/refused 2. Within the past 12 months, the food we bought just didn't last and we didn't have money to get more.: Don't know/refused Has lack of transportation kept you from medical appointments or from doing things needed for daily living?: no Has anyone in your life made you feel unsafe or unsupported?: no How hard is it for you to pay for the very basics like food, housing, medical care, and heating? Would you say it is:: Not hard at all Do you want help finding or keeping work or a job?: I do not need or want help If for any reason you need help with day-to-day activities such as bathing, preparing meals, shopping, managing finances, etc., do you get the help you need?: I could use a little more help How often do you feel lonely or isolated from those around you?: Sometimes Do you speak a language other than [place] at home?: No Does the patient want assistance with any of the above?: No Comments: Pt states he is independent at baseline. He states he will need help if he continues to have trouble weight bearing on his left foot. Health Related Social Needs Health related social needs: problems with daily activities (Z73.9) and feeling lonely/isolated (Z60.8) Health related social needs details: Pt states he is independent at baseline. He states he will need help if he continues to have trouble weight bearing on his left foot. Pt currently from his at this time.
--- NOTE | 2025-03-03 16:47 | W.PM.PROGNOT ---
Date of Service Date of service: 03/04/25 Time of Service: 14:26 Assessment and Plan Assessment and plan (1) Gout: Status: Acute Assessment and plan: symptoms improving, Left great toe Initiate allopurinol 100 mg daily Start colchicine 0.6 mg daily Prednisone burst 40 mg x 3 days then 20 mg x 3 days then discontinue (2) Osteoarthritis of both knees: Status: Acute Assessment and plan: Status post left knee replacement, Pain management PT consultation Outpatient orthopedics follow-up (3) (HFpEF) heart failure with preserved ejection fraction: Status: Acute Assessment and plan: Echocardiogram unchanged from July 2024 with preserved ejection fraction at 55% Continue jardiance, beta-abdi, aspirin, ARB Stop IV diuresis as patient appears euvolemic. (4) Anemia: Status: Chronic Assessment and plan: Stable CBC in AM (5) Hyperlipidemia: Status: Chronic Assessment and plan: On home meds (6) MERRITT (obstructive sleep apnea): Status: Chronic Assessment and plan: On home NIV- bring from home and continue as per home settings (7) Acquired hypothyroidism: Status: Chronic Assessment and plan: On home medicine regimen (8) HTN (hypertension): Status: Chronic Assessment and plan: holding Norvasc- resume if BP remains stable with diuresis Continue losartan Routine blood pressure monitoring with adjustment as needed (9) Diabetes mellitus: Status: Chronic Assessment and plan: Gluc AC and HS and SSI coverage at meal times Continue NPH home dose and adjust PRN Resume outpatient therapy on discharge (10) Atrial fibrillation: Status: Chronic Assessment and plan: Rate controlled, continue coreg Fully anticoagulated on Eliquis (11) History of total left knee replacement: Status: Acute Assessment and plan: case discussed with DR Pedro Subjective Subjective Patient reports: feels better, still having pain (improving), tolerating liquids well, tolerating a regular diet and afebrile; denies shortness of breath Exam Narrative Exam Narrative: Obese male of stated age no acute distress head is atraumatic eyes nonicteric noninjected oral mucosas slightly dry neck full range of motion with no JVD cardiovascular regular rate no murmurs appreciated respirations even and unlabored breath sounds are clear bilaterally abdomen is obese soft nontender moves all extremities equally left great toe extremely painful to touch slight swelling minimal erythema no peripheral edema skin is dry neurologic is awake alert oriented no focal deficits psychiatric appropriate mood and affect Objective Last Vital Signs Temp 36.0 C L 03/03/25 16:15 Pulse 72 03/03/25 16:15 Resp 16 03/03/25 16:15 BP 131/74 03/03/25 16:15 Pulse Ox 97 03/03/25 16:15 PAWSS Have you Been Recently Intoxicated or Drunk Within the Last 30 days?: No Have you Ever Experienced Previous Episodes of Alcohol Withdrawal?: No Have you ever Experienced Withdrawal Seizures?: No Have you ever Experienced Delirium Tremens(DT)s?: No Have you ever undergone Alcohol Rehabilitation Treatment (i.e, inpt ot outpatient treatment programs)?: No Have you ever Experienced Blackouts?: No Have you ever Combined Alcohol with other Downers within the last 90 days?: No Have you ever Combined Alcohol with any other Substance of Abuse during the last 90 days?: No Positive Blood Alcohol level on Presentation? [PCS.BAL]: No Evidence of Increased Autonomic Activity (i.e. HR>120, tremor, sweating, agitation, nausea)?: No Result: 0 Time Spent with Patient Time Spent with Patient: 35-49 minutes Time was spent: preparing to see the patient(eg.review tests), obtaining and/or reviewing separately otained hiistory, ordering medications,tests, procedures, indepentently interpreting results and counseling the patient
[2025-03-03] MEDS: Ondansetron 4 MG/2 ML VIAL IVP (16:49)
[2025-03-03] MEDS: traZODone 50 MG TAB PO (20:20)
[2025-03-03] MEDS: Insulin Glargine 300 UNITS/3 ML PEN 65 UNITS SC (20:21)
[2025-03-03] MEDS: Gabapentin 300 MG CAP PO (20:21)
[2025-03-03 21:31] LABS: Anion Gap 11.1 mmol/L (3-11); BUN 70 mg/dL (7-18); CO2 27.9 mmol/L (21.0-32.0); Calcium 9.4 mg/dL (8.5-10.1); Chloride 95 mmol/L (98-107); Glucose 441 mg/dL (74-106); Potassium 4.6 mmol/L (3.5-5.1); Sodium 134 mmol/L (136-145)
[2025-03-03] MEDS: Insulin Aspart 300 UNITS/3 ML PEN SC (21:38)
[2025-03-04] VITALS (7 sets, daily range): BP systolic 90–150; BP diastolic 44–80; PULSE 43–71; RESP 16–18; TEMP 36–36.8; O2SAT 92–99
[2025-03-04] MEDS: Ibuprofen 600 MG TAB PO ×2 (01:22→22:48)
[2025-03-04] MEDS: Acetaminophen 500 MG TAB 1000 MG PO ×3 (04:58→19:41)
[2025-03-04] MEDS: Levothyroxine 50 MCG TAB PO (06:36)
[2025-03-04] MEDS: Pantoprazole 40 MG TABCR PO (06:36)
[2025-03-04] MEDS: Ezetimibe 10 MG TAB PO (09:27)
[2025-03-04] MEDS: Rosuvastatin 20 MG TAB 40 MG PO (09:27)
[2025-03-04] MEDS: Apixaban 5 MG TAB PO ×2 (09:27→19:41)
[2025-03-04] MEDS: Allopurinol 100 MG TAB PO (09:27)
[2025-03-04] MEDS: Colchicine 0.6 MG TAB PO (09:27)
[2025-03-04] MEDS: Aspirin E.C. 81 MG TABEC PO (09:27)
[2025-03-04] MEDS: predniSONE 20 MG TAB 40 MG PO (09:27)
[2025-03-04] MEDS: Mirabegron 50 MG TABCR PO (09:27)
[2025-03-04] MEDS: Fenofibrate, Micronized 145 MG TAB PO (09:27)
[2025-03-04] MEDS: Insulin Aspart 300 UNITS/3 ML PEN SC ×4 (09:28→22:50)
[2025-03-04] MEDS: Docusate Sodium 100 MG CAP PO ×2 (09:28→19:41)
[2025-03-04] MEDS: Losartan 25 MG TAB PO (09:28)
[2025-03-04] MEDS: Empaglifozin 25 MG TAB PO (09:28)
[2025-03-04] MEDS: Furosemide 40 MG TAB PO (09:29)
[2025-03-04] MEDS: Normal Saline Flush 10 ML SYR IVP ×2 (09:29→19:44)
--- NOTE | 2025-03-04 09:31 | PTTR_ITS ---
PT Notes Visit Reasons: HFpEF Exacerbation Inpatient Physical Therapy Treatment Note [facility] Date: 03/04/2025 PRECAUTIONS: Fall, standard , mosqueda s/p L TKA 12/26(had been in outpatient PT) SUBJECTIVE: Pt reports he is fearful of returning to home after experiencing a situation where he felt helpless. He does feel better about the status of his left foot since being treated for gout. Pt reports he has a sit to stand assist chair at home. Pt has a single point cane here at hospital that he was using most recently after L TKA Dec 2024. He reports he has a FWW at home but will need assistance to get from [facility] vehicle into home stating that he has a narrow, uneven walkway. Pt. does live alone. PAIN: 5/10 in Left foot , no knee pain VITALS: Monitored by Nursing His HR was in 30's last night and now is 55 O2 96 BP 130/80 OBJECTIVE: Therapeutic Activities (45922w[3]): Direct one-on-one instruction in dynamic activities to improve functional performance. Provided skilled cues and instruction on performance and technique throughout. Supine-sit: Mod A of 1 with HOB upright Stand-sit/stand to sit RW/chair:CTG with v/c for hand placement x4 Sit to stand to RW from W/C with mod A and v/c(the w/c is lower than the chair) x2 Ambulates 2x 20' with RW small strides, limited knee flexion on left planned to give PT set of stairs a trial but he had increased light headedness. ASSESSMENT: Pt struggled particularly with bed mobility and unable to go supine to sit without the head of bed elevated and assist of moderate from PT. He states he was able to go sit to stand, transfer to bed independently, and activity tolerance, and was attending outpatient physical therapy. With reduced amount of pain in the left foot from gout he is better able to manage ambulation but is particularly weak with sit to stand from the wheelchair and bed mobility. Patient does live alone and does have concern about ability to get into his home even if he is able to do the stairs. Pt would benefit from skilled physical therapy to help address his functional concerns and increase the patient’s independence and activity tolerance. PLAN: 1-2x/day, 7 days/week x 1 week. Plan of care has been reviewed with the ELECTRICAL AND INSTRUMENTATION MANAGER providing the service under Physical Therapy direction. Initiate Physical Therapy intervention for strengthening, bed mobility, transfers, gait, stairs, balance training, use of assistive device. DISCHARGE RECOMMENDATION: SNF v HHPT vs resume outpatient PT given improvement today with reduced pain of foot. Most limited with his transfers sit to stand and supine to sit. TREATMENT CODE/TIME:[][id number] 11:25-12:15
--- NOTE | 2025-03-04 13:56 | W.PM.PROGNOT ---
Date of Service Date of service: 03/04/25 Time of Service: 13:56 Assessment and Plan Assessment and plan (1) Atrial fibrillation: Status: Chronic Assessment and plan: Rate over-controlled, no chest pain or shortness of breath but feeling increased weakness today. hold coreg, consider am dosing only, discontinue PM dose. Fully anticoagulated on Eliquis (2) Gout: Status: Acute Assessment and plan: symptoms improving, Left great toe Initiate allopurinol 100 mg daily Start colchicine 0.6 mg daily Prednisone burst 40 mg x 3 days then 20 mg x 3 days then discontinue (3) Osteoarthritis of both knees: Status: Acute Assessment and plan: Status post left knee replacement, Pain management PT consultation Outpatient orthopedics follow-up (4) (HFpEF) heart failure with preserved ejection fraction: Status: Acute Assessment and plan: Echocardiogram unchanged from July 2024 with preserved ejection fraction at 55% Continue jardiance, beta-abdi, aspirin, ARB Stop IV diuresis as patient appears euvolemic. (5) Anemia: Status: Chronic Assessment and plan: Stable CBC in AM (6) Hyperlipidemia: Status: Chronic Assessment and plan: On home meds (7) MERRITT (obstructive sleep apnea): Status: Chronic Assessment and plan: On home NIV- bring from home and continue as per home settings (8) Acquired hypothyroidism: Status: Chronic Assessment and plan: On home medicine regimen (9) HTN (hypertension): Status: Chronic Assessment and plan: holding Norvasc- resume if BP remains stable with diuresis Continue losartan Routine blood pressure monitoring with adjustment as needed (10) Diabetes mellitus: Status: Chronic Assessment and plan: Gluc AC and HS and SSI coverage at meal times Continue NPH home dose and adjust PRN Resume outpatient therapy on discharge (11) History of total left knee replacement: Status: Acute Assessment and plan: case discussed with DR Pedro Subjective Subjective Patient reports: tolerating liquids well, tolerating a regular diet and afebrile; denies shortness of breath Interval history since last seen: feeling weak today, didn't ambulate as well as yesterday with PT. heart rate noted to be in the 30's during the night. no chest pain or shortness of breath reported. Exam Narrative Exam Narrative: Obese male of stated age no acute distress head is atraumatic eyes nonicteric noninjected oral mucosas slightly dry neck full range of motion with no JVD cardiovascular irregular rate, controlled to over controlled afib on the monitor, no murmurs appreciated respirations even and unlabored breath sounds are clear bilaterally abdomen is obese soft nontender moves all extremities equally left great toe extremely painful to touch slight swelling minimal erythema, symptoms improving, no peripheral edema skin is dry neurologic is awake alert oriented no focal deficits psychiatric appropriate mood and affect Objective Last Vital Signs Temp 36.8 C 03/04/25 11:56 Pulse 48 L 03/04/25 11:56 Resp 16 03/04/25 11:56 BP 130/80 03/04/25 11:56 Pulse Ox 96 03/04/25 11:56 Laboratory Results - last 24 hr 03/03/25 20:48 Sodium 134 L Potassium 4.6 Chloride 95 L Carbon Dioxide 27.9 Anion Gap 11.1 H BUN 70 H Creatinine 2.3 H Est GFR (CKD-EPI 2020) 29.43 Glucose 441 H Calcium 9.4 PAWSS Have you Been Recently Intoxicated or Drunk Within the Last 30 days?: No Have you Ever Experienced Previous Episodes of Alcohol Withdrawal?: No Have you ever Experienced Withdrawal Seizures?: No Have you ever Experienced Delirium Tremens(DT)s?: No Have you ever undergone Alcohol Rehabilitation Treatment (i.e, inpt ot outpatient treatment programs)?: No Have you ever Experienced Blackouts?: No Have you ever Combined Alcohol with other Downers within the last 90 days?: No Have you ever Combined Alcohol with any other Substance of Abuse during the last 90 days?: No Positive Blood Alcohol level on Presentation? [PCS.BAL]: No Evidence of Increased Autonomic Activity (i.e. HR>120, tremor, sweating, agitation, nausea)?: No Result: 0 Time Spent with Patient Time Spent with Patient: 35-49 minutes Time was spent: preparing to see the patient(eg.review tests), obtaining and/or reviewing separately otained hiistory, ordering medications,tests, procedures, indepentently interpreting results and counseling the patient
[2025-03-04] MEDS: Gabapentin 300 MG CAP PO (19:41)
[2025-03-04] MEDS: traZODone 50 MG TAB PO (19:41)
[2025-03-04] MEDS: Insulin Glargine 300 UNITS/3 ML PEN 65 UNITS SC (21:15)
[2025-03-05] MEDS: Acetaminophen 500 MG TAB 1000 MG PO ×2 (03:34→11:23)
[2025-03-05 03:36] VITALS: BP 112/56; PULSE 63; RESP 17; TEMP 36.3; O2SAT 94
[2025-03-05] MEDS: Levothyroxine 50 MCG TAB PO (05:45)
[2025-03-05 07:10] VITALS: BP 109/80; PULSE 54; RESP 18; TEMP 36.4; O2SAT 92
[2025-03-05] MEDS: Fenofibrate, Micronized 145 MG TAB PO (07:44)
[2025-03-05] MEDS: Aspirin E.C. 81 MG TABEC PO (07:44)
[2025-03-05] MEDS: Mirabegron 50 MG TABCR PO (07:44)
[2025-03-05] MEDS: Ezetimibe 10 MG TAB PO (07:44)
[2025-03-05] MEDS: Furosemide 40 MG TAB PO (07:45)
[2025-03-05] MEDS: predniSONE 20 MG TAB PO (07:45)
[2025-03-05] MEDS: Apixaban 5 MG TAB PO (07:45)
[2025-03-05] MEDS: Rosuvastatin 20 MG TAB 40 MG PO (07:45)
[2025-03-05] MEDS: Pantoprazole 40 MG TABCR PO (07:45)
[2025-03-05] MEDS: Docusate Sodium 100 MG CAP PO (07:45)
[2025-03-05] MEDS: Colchicine 0.6 MG TAB PO (07:45)
[2025-03-05] MEDS: Allopurinol 100 MG TAB PO (07:45)
[2025-03-05] MEDS: Losartan 25 MG TAB PO (07:45)
[2025-03-05] MEDS: Empaglifozin 25 MG TAB PO (07:45)
[2025-03-05] MEDS: Normal Saline Flush 10 ML SYR IVP (07:46)
[2025-03-05] MEDS: Insulin Aspart 300 UNITS/3 ML PEN SC ×2 (08:16→11:23)
--- NOTE | 2025-03-05 10:28 | PT.INTREAT ---
PT Notes Visit Reasons: HFpEF Exacerbation Inpatient Physical Therapy Treatment Note [facility] Date: 03/05/2025 PRECAUTIONS: Fall, standard , mosqueda s/p L TKA 12/26(had been in outpatient PT) SUBJECTIVE: Pt reports he is fearful of returning to home after experiencing a situation where he felt helpless. He does feel better about the status of his left foot since being treated for gout. Pt reports he has a sit to stand assist chair at home. Pt has a single point cane here at hospital that he was using most recently after L TKA Dec 2024. He reports he has a FWW at home but will need assistance to get from [facility] vehicle into home stating that he has a narrow, uneven walkway. Pt. does live alone. Has scheduled outpatient PT. PAIN: 0/10 in Left foot , no knee pain VITALS: Monitored by Nursing OBJECTIVE: Therapeutic Activities (33468r[3]): Direct one-on-one instruction in dynamic activities to improve functional performance. Provided skilled cues and instruction on performance and technique throughout. Supine-sit: struggles but indep with HOB upright Stand-sit/stand to sit RW/chair:indepw x4 treatment table lower no hand rails indep x2 Ambulates 2x150' with RW small strides, limited knee flexion on left, side to side gait pattern stairs indep with 2 rails in PT clinic Ambulate to toilet, stand to toilet indep PROM of left knee standing balance activity. ASSESSMENT: Pt still struggles with bed mobility but able to do and states he can use his relciner at home. He states he was able to go sit to stand, transfer to bed independently, and activity tolerance, and was attending outpatient physical therapy. He should be able to attend outpatient PT,, he has an appointment 03/09/2025 at [facility].No c/o pain in the left foot. Patient does live alone and does have concern about ability to get into and out of his home but he thinks he can manage with his walker.Will continue with skilled PT as long as patient still in hospital. PLAN: 1-2x/day, 7 days/week x 1 week. Plan of care has been reviewed with the ACCESS CONTROL OFFICER providing the service under Physical Therapy direction. Initiate Physical Therapy intervention for strengthening, bed mobility, transfers, gait, stairs, balance training, use of assistive device. DISCHARGE RECOMMENDATION: HHPT vs resume outpatient PT given improvement yesterday and today suspect he can resume outpatient PT. TREATMENT CODE/TIME:[][id number] 10:20-11:00
[2025-03-05 11:20] VITALS: BP 136/66; PULSE 57; RESP 18; TEMP 36.4; O2SAT 98
[2025-03-05 14:43] VITALS: BP 113/54; PULSE 59; RESP 18; TEMP 36.6; O2SAT 97
--- NOTE | 2025-03-05 15:31 | DSE_ITS ---
Date of service: 03/05/25 Time of Service: 15:37 DS: Diagnosis Discharge Diagnosis (1) Atrial fibrillation: Status: Chronic (2) Gout: Status: Acute (3) Osteoarthritis of both knees: Status: Acute (4) (HFpEF) heart failure with preserved ejection fraction: Status: Acute (5) Anemia: Status: Chronic (6) Hyperlipidemia: Status: Chronic (7) MERRITT (obstructive sleep apnea): Status: Chronic (8) Acquired hypothyroidism: Status: Chronic (9) HTN (hypertension): Status: Chronic (10) Diabetes mellitus: Status: Chronic (11) History of total left knee replacement: Status: Acute Discharge Plan Disposition Patient Disposition: Home Condition: Improving Discharge Details Reason For Visit: HFpEF Exacerbation Admit Date/Time: 03/01/25 14:26 Admit Provider: Caleb Bowman Attending Provider: Caleb Bowman Primary Care Provider: Richard Jeffers Hospital Course Hospital Course: Mr. Still, a 74-year-old male with a past medical history significant for HFpEF (LVEF 55% per 03/02/2025 echo), CKD stage 3, atrial fibrillation, hypertension, diabetes mellitus, hypothyroidism, and gout, presented to the ED 03/01 with difficulty ambulating, left foot swelling, and pain. He reported recent noncompliance with oral furosemide due to increased pain and mobility issues. On presentation, BNP was 1526 (down from prior 3526), creatinine 1.8 (baseline), and EKG showed atrial fibrillation with MVR, without ischemic changes. He received IV furosemide in the ED and was admitted for further diuresis, telemetry monitoring, and echocardiographic reassessment. During hospitalization, the patient responded appropriately to IV diuretics with improvement in volume status. Patient was started on Jardiance 25 mg daily, goal directed therapy. He developed left great toe pain and tenderness, consistent with an acute gout flare, treated conservatively with prednisone taper and initiation of allopurinol. Colchicine was originally started and then avoided due to renal function. Physical therapy evaluated the patient and recommended continuation of outpatient therapy upon discharge. Overnight telemetry revealed bradycardia to the 30s, likely related to beta- abdi therapy. Carvedilol was held, and patient remained asymptomatic. Renal function worsened mildly (Cr 2.3, BUN 70) with diuresis, prompting discontin uation of IV Lasix. Patient appears euvolemic at time of discharge. He tolerated diet, remained afebrile, and denied chest pain, dyspnea, dizziness, or nausea at the time of discharge. Discussed with Dr Pedro. Recommendations for Follow Up Recommended tests to be ordered by follow up provider: BMP 3 days (renal fxn) START: Allopurinol 50 mg EVERY OTHER DAY. (renal dose) START: Prednisone taper (40 mg x3d; 20 mg x3d; stop). START: Jardiance 25 mg daily, CONTINUE: Losartan, Aspirin, Eliquis, NPH Insulin, Levothyroxine, Fenofibrate, Rosuvastatin. HOLD: Carvedilol until reevaluated by PCP (due to bradycardia). Home Meds and New Rx's Prescriptions: New Jardiance 25 mg Tablet 25 mg PO QAM Qty: 30 0RF allopurinol 100 mg Tablet 50 mg PO Q2D Qty: 15 0RF prednisone 20 mg Tablet See Taper PO DAILY Qty: 10 0RF Taper: Prednisone 20mg taper 40 mg Daily for 3 Days and 0 Hour 20 mg Daily for 3 Days and 0 Hour Continued insulin aspart U-100 [Novolog FlexPen U-100 Insulin] 100 unit/mL (3 mL) insulin pen See Rx Instructions .ROUTE .COMPLEX Qty: 90 3RF Dose Instruction: INJECT 10 TO 30 UNITS BEFORE MEALS PER MEALTIME CORRECTION SCHEDULE Patient Comments: Pt states he takes after meals depending on his BG reading - ML, RN 03/01/25 Rx Instructions: INJECT 10 TO 30 UNITS BEFORE MEALS PER MEALTIME CORRECTION SCHEDULE (DME) FreeStyle Bahman 2 [place] Misc See Rx Instructions .ROUTE .MEDSUPPLY Qty: 1 0RF Rx Instructions: As directed (DME) Knee Brace - STABILIZING See Rx Instructions .Route .MEDSUPPLY Qty: 1 1RF Rx Instructions: One RT KNEE STABILIZING BRACE; mirabegron [Myrbetriq] 50 mg tablet extended release 24 hr 50 mg PO DAILY Qty: 90 3RF aspirin 81 mg tablet,delayed release (DR/EC) 81 mg PO DAILY Patient Comments: 06/02/19-replaces 325mg. daily [place] [facility] [place] JOBY Mchugh (DME) lancets [FreeStyle Lancets] 28 gauge misc See Rx Instructions .ROUTE .MEDSUPPLY Qty: 400 3RF Rx Instructions: to test BS 4X daily for DM/E11.9 and to keep A1c at or under 7.0% (DME) pen needle, diabetic [BD Ultra-Fine Amber Pen Needle] 32 gauge x 5/32 needle 1 ea Miscellaneous QID Qty: 400 3RF Rx Instructions: E11.65 to administer insulin 4x/day (DME) Blood Glucose Test Strip See Rx Instructions .MEDSUPPLY Qty: 400 3RF Rx Instructions: As directed to check blood glucose four times daily. On insulin. Dispense covered brand. (DME) FreeStyle Bahman 2 Sensor Kit See Rx Instructions .ROUTE .MEDSUPPLY Qty: 2 11RF Rx Instructions: As directed Eliquis 5 mg tablet 5 mg PO BID Qty: 180 3RF Rx Instructions: PLEASE EXPLAIN WHAT HAPPENED TO 05/29/23 PRESCRIPTION? Jardiance 25 mg tablet See Rx Instructions .ROUTE .COMPLEX Qty: 90 3RF Dose Instruction: TAKE 1 TABLET EVERY MORNING Rx Instructions: TAKE 1 TABLET EVERY MORNING rosuvastatin 40 mg tablet See Rx Instructions .ROUTE .COMPLEX Qty: 90 3RF Dose Instruction: TAKE 1 TABLET DAILY Rx Instructions: TAKE 1 TABLET DAILY fenofibrate nanocrystallized [Tricor] 145 mg tablet 145 mg PO DAILY Qty: 90 3RF semaglutide 1 mg/dose (4 mg/3 mL) pen injector 1 mg subcut QWEEK Qty: 3 5RF furosemide 40 mg tablet 40 mg PO DAILY PRN (Reason: LEG SWELLING) Qty: 90 3RF Patient Comments: 11/15/24 pt takes very 3 days RH Rx Instructions: Re-start, 04/14 x 3-5 days levothyroxine 50 mcg tablet See Rx Instructions .ROUTE .COMPLEX Qty: 90 3RF Dose Instruction: TAKE 1 TABLET DAILY FOR THYROID Rx Instructions: TAKE 1 TABLET DAILY FOR THYROID nitroglycerin 0.4 mg tablet, sublingual 0.4 mg SL Q5M PRN (Reason: chest pain) Qty: 90 3RF Rx Instructions: Take 1 at onset of chest pain, may repeat x2 q5 min if pain continues. losartan 25 mg tablet See Rx Instructions .ROUTE .COMPLEX Qty: 90 0RF Dose Instruction: TAKE 1 TABLET AT BEDTIME FOR DIABETES, AND TO PROTECT KIDNEYS Rx Instructions: TAKE 1 TABLET AT BEDTIME FOR DIABETES, AND TO PROTECT KIDNEYS ketoconazole 2 % cream 1 applic topical DAILY Qty: 120 6RF Rx Instructions: Apply to 1g to skin and toenails once daily amlodipine 2.5 mg tablet 2.5 mg PO DAILY ezetimibe 10 mg tablet 10 mg PO DAILY oxycodone 5 mg tablet 5 mg PO QHS MDD 1 tab PRN (Reason: pain) Qty: 14 0RF insulin glargine [Lantus Solostar U-100 Insulin] 100 unit/mL (3 mL) insulin pen 65 unit Sub-Q QPM Rx Instructions: Or as directed for dx: E11.65 acetaminophen 500 mg tablet 1,000 mg PO Q8H PRN Qty: 90 0RF Rx Instructions: Take two tablets up to every 8 hours as needed for pain pantoprazole 40 mg tablet,delayed release (DR/EC) 40 mg PO DAILY Qty: 14 0RF Rx Instructions: Take one tablet once daily gabapentin 300 mg capsule 300 mg PO QHS Qty: 14 0RF Rx Instructions: Take one tablet at bedtime meloxicam 15 mg tablet 15 mg PO DAILY Qty: 30 1RF Rx Instructions: Take one tablet daily for pain and inflammation ergocalciferol (vitamin D2) [Vitamin D2] 1,250 mcg (50,000 unit) capsule 1,250 mcg PO .WEEKLY trazodone 50 mg tablet 50 mg PO QHS docusate sodium [Colace] 100 mg capsule 100 mg PO BID PRN Discontinued carvedilol 3.125 mg tablet 3.125 mg PO BID Qty: 180 2RF Rx Instructions: must administer with a meal/food Discharge Instructions Instructions: Gout, Allopurinol, Empagliflozin, Low Purine Diet Additional Instructions: * START: Allopurinol 50 mg EVERY OTHER DAY. * START: Prednisone taper (40 mg x3d; 20 mg x3d; stop). * START: Jardiance 25 mg daily, * CONTINUE: Losartan, Aspirin, Eliquis, NPH Insulin, Levothyroxine, Fenofibrate, Rosuvastatin. * HOLD: Carvedilol until reevaluated by PCP (due to bradycardia). * Low Prurine Diet Follow-Up * Primary Care: In 3–5 days for medication review, or sooner if symptoms worsen; Recommend BMP, and blood pressure/heart rate monitoring. * Cardiology: Outpatient follow-up for HF management and beta-abdi adjustment. * Physical Therapy: Resume outpatient PT as scheduled. Stand Alone Forms: Nursing Discharge Form Referrals: Richard Jeffers [Primary Care Provider, Medicine] Referral Note: Admitted for Gout, CHF START: Allopurinol 50 mg EVERY OTHER DAY. ? START: Prednisone taper (40 mg x3d; 20 mg x3d; stop). ? START: Jardiance 25 mg daily, ? CONTINUE: Losartan, Aspirin, Eliquis, NPH Insulin, Levothyroxine, Fenofibrate, Rosuvastatin. ? HOLD: Carvedilol until reevaluated by PCP (due to bradycardia). Recommend BMP 3 days PCP office will give you a call to set up a follow up appointment. If you don't hear from them, please give them a call. Activity:: Activity as Tolerated Equipment/Supplies:: Blood Glucose Monitor Diet:: Diabetic, heart healthy Discharge Orders Discharge Orders: Discharge Order (Routine); Ordered 03/05/25 Ordered By: Josette Hammond DS: Summary Time Spent with Patient providing and/or coordinating discharge services: Greater than 30 minutes Status at Discharge Functional status at discharge: independent ambulation Overall status at discharge: patient is progressing back to baseline Mental Status: mental status grossly normal Speech and Movement: speech and movement normal Mood: congruent mood Affect: normal affect Quality:SDOH Health Related Social Needs: Health related social needs daily activities lonely/is olated Health related social needs details Pt states he is in dependent at baseline. He states he will need help if he continues to have trouble weight bearing on his left foot. Pt currently from his at this time. Health related social needs details: Pt states he is independent at baseline. He states he will need help if he continues to have trouble weight bearing on his left foot. Pt currently from his at this time. Exam Narrative Exam Narrative: General: Obese male, appears stated age, in no acute distress. Head: Atraumatic. Eyes: Nonicteric, noninjected. Oral Mucosa: Slightly dry. Neck: Full range of motion, no jugular venous distention (JVD). Cardiovascular: Irregular rhythm consistent with atrial fibrillation, rate controlled to slightly over-controlled; no murmurs appreciated. Respiratory: Even and unlabored respirations; breath sounds clear bilaterally. Abdomen: Obese, soft, nontender. Extremities: Moves all extremities equally. Left great toe tender to touch with slight swelling and minimal erythema; symptoms improving. No peripheral edema. Skin: Dry, intact. Neurologic: Awake, alert, oriented ×3; no focal deficits. Psychiatric: Appropriate mood and affect. Psych Mental Status: mental status grossly normal Speech and Movement: speech and movement normal Mood: congruent mood Affect: normal affect DS: Data Vitals/I&O Vitals and I&O: Vital Signs Temperature 36.6 C 03/05/25 14:43 Temperature Source Temporal Artery Scan 03/05/25 14:43 Pulse 59 L 03/05/25 14:43 Pulse Rhythm Regular 03/01/25 15:50 Pulse 77 03/01/25 15:00 Respiratory Rate 18 03/05/25 14:43 Respiratory Effort Normal, Non-Labored 03/01/25 15:50 Respiratory Depth Normal 03/01/25 15:50 Respiratory Pattern Normal 03/01/25 15:50 Blood Pressure 113/54 L 03/05/25 14:43 Blood Pressure Mean 73 03/05/25 14:43 Blood Pressure Position Sitting 03/01/25 10:45 Pulse Oximetry 97 03/05/25 14:43 Oxygen Delivery Method Room Air 03/05/25 14:43 Oxygen Flow Rate 0 03/05/25 14:43 Fraction of Inspired Oxygen (FIO2) 21 03/01/25 18:25 Pain Level 0 03/04/25 23:08 Comment Minimal pain when non-weight bearing. 03/01/25 15:50 Intake & Output 03/04/25 03/05/25 03/05/25 23:59 10:59 23:59 Intake Total 490 / 880 Output Total 1500 / 1800 1699 Balance -1010 / -920 -1699 / -2074 - Intake: IV Oral 480 / 870 Output: Urine 1500 / 1800 1699 Other: Urine Color Yellow Yellow Yellow Urine Appearance Clear Clear Clear Urine Odor Strong Normal Comment Patient has condom catheter in place Data Completed and Pending Pending Labs at Discharge: 03/01/25 03/02/25 03/03/25 12:34 06:23 20:48 WBC 12.83 H RBC 3.85 L Hgb 12.4 L Hct 37.7 L MCV 98 H MCH 32.2 MCHC 32.9 RDW 12.9 Plt Count 293 MPV 11.4 H Immature Gran % 0.5 Neutrophils % 77.9 Lymphocytes % 11.9 Monocytes % 8.7 Eosinophils % 0.8 Basophils % 0.2 Nucleated RBC % 0.0 Absolute Neutrophils 9.99 H Absolute Lymphocytes 1.53 Absolute Monocytes 1.12 H Absolute Eosinophils 0.10 Absolute Basophils 0.03 Sodium 140 134 L Potassium 4.2 4.6 Chloride 102 95 L Carbon Dioxide 28.3 27.9 Anion Gap 9.7 11.1 H BUN 49 H 70 H Creatinine 1.8 H 2.3 H Est GFR (CKD-EPI 2020) 39.50 29.43 Glucose 136 H 441 H Uric Acid 8.9 H Calcium 9.6 9.4 Magnesium 2.2 Total Bilirubin 0.5 AST 21 ALT 23 Alkaline Phosphatase 65 NT-Pro-B Natriuret Pep 1526 H Total Protein 7.4 Albumin 3.8 PFSH All Active Problems (Updated 03/02/25 @ 15:39 by Xiomara Ornelas NP) Gout (Acute) HTN (hypertension) (Chronic) Diabetes mellitus (Chronic) (HFpEF) heart failure with preserved ejection fraction (Acute) Acute non-ST elevation myocardial infarction (NSTEMI) (Acute) History of total left knee replacement (Acute 12/13/24) Edema (Acute) Venous insufficiency (Acute) Pain in left foot (Acute) Plantar fasciitis of left foot (Acute) Gout due to renal impairment involving toe of right foot (Acute) Hypercalcemia (Acute) Arthritis of right knee (Acute) 40MG DEPO MEDROL 08/08/24 Peripheral sensory neuropathy (Acute) Hammer toes, bilateral (Acute) Osteoarthritis of both knees (Acute) Laxity of knee joint (Acute) Sensation of knee instability (Acute) Unstable right knee (Acute) Cardiomyopathy (Acute) Toenail deformity (Acute) Coordination of complex care (Acute) Chart Review ID several Dx/Tx needing re-assessment or Hx requiring re- evaluation ([facility] dec?)(Bi-Pap ordered 12/2023, rec'd?)(Fe Infusion)(Vit D started? re-checked?)(++) Bradycardia (Acute) Noted for some time (1/2 dose trialed in 2021 before change in PCP)(chart reviewed, 05/30/23: dizziness incompletely evaluated 2' pt leaving [facility] AMA.. ACS ruled out 01/08-12/23.. Metoprolol decreased from 25mg BID per [facility], but maybe NOT implemented? ..and missed in FU! 05/30/23, ik Diuresis (Acute) actively diuresing, good results with q 2-3 days lasix (May 2023). Hx exa cerbated CHF in Fall 2022 (AMA 2' intolerance diuretics, unable to get to bathroom; poor sleep 2' noise + uncomfortable bed)((Rx if HOSPTLZATN needed .. ik, 04/2023)) Pitting edema (Chronic) improved with diuretics (mar-apr 2023) .. cont q2 days.. [ ] cardio [facility] [place]eval [place]o [place] Low vitamin D level (Acute) Very low, 7.9! Essential hypertension (Chronic 01/31/13) CHF (congestive heart failure), NYHA class II (Chronic) EF 40% (12/2022), decreased from 2020 .. Clinical Dx ClassII CKD (chronic kidney disease) stage 3, GFR 30-59 ml/min (Chronic) History of kidney injury (Acute) GLENYS 2' furosemide, 04/17/23, but needed for HF/Edema.. Seeing Nephrology (quarterly) Decreased dorsalis pedis pulse (Acute) per Pod, 01/13/23 (2/4) Absence of posterior tibial pulse (Acute) per Pod, 01/13/23 Coronary artery disease (Chronic) 3-vessel (LAD, LCX, RCA) Atrial fibrillation (Chronic) Apixaban 06/22/2019 Acute exacerbation of congestive heart failure (Acute) ED --> Hospitalized for diuresis, but no mosqueda & pt unable to sleep (left AMA) Cardiomegaly (Acute) CXR; [place] [facility] [place]%, +LVH (mild), no significant valvular disease; stable compared with 2017 study Anemia (Chronic) Hx of iron deficiency anemia (Acute) improved with iron infusion, but did not feel better (possible iron infusions exacerb HF? ~ Mar--Apr 2023)(doubtful based on no IVF, but possible) Fatigue (Acute) Worsened per pt, affecting ADL .. not just de-conditioning? Hyperlipidemia (Chronic 08/17/12) Osteoarthritis of right knee (Acute) DEPO MEDROL 08/14/22 Arthritis of both knees (Chronic) MERRITT (obstructive sleep apnea) (Chronic) Bi-PAP 07/23/19 Diabetes mellitus with neuropathy (Chronic) Reduced monofilament 06/24/2019 Goal A1C 7.5% or less Uncontrolled diabetes mellitus (Acute) Ortho Surgery OK < 8 (Dr. Ceja).. 10/2023 .. Goal </=7.5% Current use of insulin (Chronic) Acquired hypothyroidism (Chronic 10/28/16) High TSH, but WNL T4 (2021) .. re-checking Cervical disc disorder with myelopathy (Acute) right arm Overactive bladder (Chronic) Myrbetriq RE-started, 03/2023.. rptd improved @ 04/10/23 ov, ik .. Oxybutynin, discontinued 06/24/19 in favor of optimizing DMT2 management Unsteady gait (Acute) Dizziness incompletely evaluated 2' pt leaving [facility] AMA.. ACS ruled out 01/08- 12/23.. Metoprolol decreased from 25mg BID per [facility], but maybe NOT implemented? ..and missed in FU! 05/30/23, ik Ataxia (Acute) Asymmetrical sensorineural hearing loss (Acute) Cognitive impairment (Acute) Forgetting, but using notes/print-outs .. ex(?)- helps .. Nail dystrophy (Acute) Onychomycosis (Acute) Tinea pedis (Acute) Blisters of multiple sites (Acute ~01/13/23) 01/13/23 [facility] note- Dr. Barker: Seropurulent Blisters, B/L legs.HE Metatarsalgia of left foot (Acute) Pain of right great toe (Acute) Medical History PAD (peripheral artery disease) Left, per [facility] (12/2022) Stopped smoking with greater than 20 pack year history Lung CT Screening, 07/16/20 Epiretinal membrane (~01/2023) right eye Slow heart rate Noted for some time (1/2 dose trialed in 2021 before change in PCP)(chart reviewed, 05/30/23: dizziness incompletely evaluated 2' pt leaving [facility] AMA.. ACS ruled out 01/08-12/23.. Metoprolol decreased from 25mg BID per [facility], but maybe NOT implemented? ..and missed in FU! 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 Chronic and recurrent low back pain L4-[address] scan in 1993, recurrent since then intermittently. Hypomagnesemia (06/22/14) Only 1.0 in the ER today. Pipe smoker Surgical History History of colonoscopy (~02/2023) with Mac S/P cardiac catheterization (05/31/19) 2019 History of cataract removal with insertion of prosthetic lens (11/23/14) History of umbilical hernia repair Status post appendectomy Status post coronary artery stent placement (09/26/16) One vessel for unstable angina Status post coronary artery bypass with autogenous graft, 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) 2016 Repair of umbilical hernia Fracture, Open Treatment ORIF-LEFT SYNDESMOSIS WITH TWO SCREWS Colonoscopy - IV Sedation Extraction of cataract 11/23/14; DR. GOINS; RIGHT EYE 12/07/14; DR. GOINS; LEFT EYE Appendectomy Family History Father Diabetes Dementia Neoplasm PANCREATIC Social History Smoking/Tobacco Use Status: Former Tobacco Use Quit Date: 01/02/17 Pack-years: 40 Tobacco: How many years used: 40 Quit status: has quit before Smoking risk assessment performed?: Yes Alcohol Intake: former Counseling given: Yes Counseling provided: reduce to 2 or less/day Details: 2-3 oz at a time Drug use: Never Substance use type: does not use Adopted: No Caregiver/Support person: No Foster care: No Household members: none and other Details: Cats Housing: house Number of Children: 3 number of grandchildren: 4 Communication Needs: None Do you need help understanding health information?: Rarely Pets and animals: Yes Pets and animals: cat(s) Do you think of yourself as: straight/heterosexual Current gender identity: male What is your relationship status?: How often do you talk on the phone with friends or family?: three or more times per week How often do you get together with friends or relatives?: twice per week Panel score (0-1 are the most socially isolated patients): 1 What type of physical activity do you participate in: other Details: Tredmill Duration: 45-60 minutes/day Frequency: 5-6 times per week Special isi needs: No Seatbelt use: always Helmet use: Yes Helmet use: always Drive intox 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 boat driver: No Working smoke detector in home: No Fire extinguisher in home: No Carbon monox detector in home: No Do you feel safe at home: Yes Do you feel safe in your relationship?: Yes Time Spent with Patient Time Spent with Patient: 45-69 minutes Time was spent: preparing to see the patient(eg.review tests), ordering medications,tests, procedures, referring, communicating with other health toddler caregiver, indepentently interpreting results, counseling the patient and care coordination
--- NOTE | 2025-03-06 10:41 | W.NUTRFU ---
Date of service: 03/03/25 Time of Service: 13:00 Nutrition Note NOTE: Met with Mr Still multiple times over his admission while filling in for kitchen staff and obtaining meal choices. Last A1c in November 7.3% Takes jardiance at home, as well as basal and mealtime insulin. Lives at home. Does like to snack and can graze sometimes. Discussed high fiber diet and watching sodium by including more traditional foods. He is aware of outpatient services he can take advantage of if wanting more detailed guidance on his daily pattern of eating. Time Spent in Nutritional Counseling and Treatment: 10 min
== END 2025-03-05 16:27 | disposition home or self-care (01) ==
LOC: ER 10:34 → MS 15:31
PROVIDERS: Family Medicine; Nurse Practitioner Acute Care; Admitting Provider Family Medicine; Emergency Provider Physician Assistant; PCP Student in an Organized Health Care Education/Training Program; Responsible Provider Nurse Practitioner Family; Visit Provider Family Medicine
DX: I13.0 Hypertensive heart and chronic kidney disease with heart failure and stage 1 through stage 4 chronic kidney disease, or unspecified chronic kidney disease (principal); I50.33 Acute on chronic diastolic (congestive) heart failure; M10.072 Idiopathic gout, left ankle and foot; M79.672 Pain in left foot; N18.31 Chronic kidney disease, stage 3a; D63.1 Anemia in chronic kidney disease; E78.2 Mixed hyperlipidemia; E03.9 Hypothyroidism, unspecified; G47.33 Obstructive sleep apnea (adult) (pediatric); I48.20 Chronic atrial fibrillation, unspecified; E11.22 Type 2 diabetes mellitus with diabetic chronic kidney disease; W19.XXXA Unspecified fall, initial encounter; Z91.148 Patient's other noncompliance with medication regimen for other reason; Z96.652 Presence of left artificial knee joint; Z79.01 Long term (current) use of anticoagulants; Z79.899 Other long term (current) drug therapy; Z79.4 Long term (current) use of insulin; Z79.85 Long-term (current) use of injectable non-insulin antidiabetic drugs; I25.2 Old myocardial infarction; I87.8 Other specified disorders of veins; E11.42 Type 2 diabetes mellitus with diabetic polyneuropathy; I42.9 Cardiomyopathy, unspecified; I25.10 Atherosclerotic heart disease of native coronary artery without angina pectoris; Z95.1 Presence of aortocoronary bypass graft; R26.81 Unsteadiness on feet; R41.3 Other amnesia; I73.9 Peripheral vascular disease, unspecified; Z87.891 Personal history of nicotine dependence; E66.9 Obesity, unspecified; H90.3 Sensorineural hearing loss, bilateral; F32.A Depression, unspecified; Z95.5 Presence of coronary angioplasty implant and graft; M17.0 Bilateral primary osteoarthritis of knee
CPT/HCPCS: 00123; 36415; 80048; 80053; 93005; 93306; 96374; 97162; 97530; 99285; 83735; 83880; 84550; 85025; 93010; 94760; 99223; 99232; 99239; G0378; J1815; J1938; J2405; J3490; J7512

== ENCOUNTER → 2025-04-10 13:21 | Outpatient (BNVA) | payer MEDICARE, OTHER, SELFPAY | PROVIDERS: PCP Student in an Organized Health Care Education/Training Program; Referring Provider Student in an Organized Health Care Education/Training Program; Visit Provider Student in an Organized Health Care Education/Training Program | DX: Z47.1 Aftercare following joint replacement surgery (principal); Z96.652 Presence of left artificial knee joint; M79.672 Pain in left foot | CPT/HCPCS: 99213 ==

== ENCOUNTER 2025-04-15 12:02 | Emergency (ER) | payer MEDICARE, OTHER, SELFPAY ==
[2025-04-15 12:02] VITALS: BP 142/44; PULSE 60; RESP 16; TEMP 36.2; O2SAT 98
[2025-04-15 12:09] VITALS: BP 142/44; PULSE 60; RESP 16; TEMP 36.2; O2SAT 98
[2025-04-15 12:36] LABS: Abs Immature Grans 0.06 10^3/uL (0.0-0.06); HCT 37.4 % (40.0-50.0); HGB 12.4 g/dL (13.5-17.5); Immature Grans % 0.5 %; MCH 32.0 pg (27.0-33.0); MCHC 33.2 % (32.0-36.0); MCV 96 fL (80-95); MPV 10.8 fL (8.0-11.0); Platelet Count 343 10^3/uL (130-400); RBC 3.88 10^6/uL (4.36-5.78); RDW 13.0 % (11.8-14.1); RDW-SD 45.8 fL; WBC 11.91 10^3/uL (4.4-10.8)
[2025-04-15 13:03] LABS: ALT 13 U/L (10-49); AST 19 U/L (<34); Albumin 4.5 g/dL (3.2-5.0); Alkaline Phosphatase 58 U/L (46-116); Anion Gap 9.3 mmol/L (3-11); BUN 37 mg/dL (9-23); Bilirubin, Total 0.4 mg/dL (0.2-1.2); CO2 27.7 mmol/L (20.0-31.0); Calcium 9.4 mg/dL (8.3-10.6); Chloride 103 mmol/L (98-107); Glucose 167 mg/dL (74-106); Potassium 3.4 mmol/L (3.5-5.1); Sodium 140 mmol/L (136-145); Total Protein 7.4 g/dL (5.7-8.2)
--- NOTE | 2025-04-15 13:18 | ED.GENADUL_ITS ---
Discharge Plan Disposition Patient Disposition: Home Condition: Stable Discharge Details Clinical Impression: Low blood sugar in diabetes Primary Care Provider: Richard Jeffers ED Provider: Lucas Greenberg Home Meds and New Rx's Prescriptions: Continued insulin aspart U-100 [Novolog FlexPen U-100 Insulin] 100 unit/mL (3 mL) insulin pen See Rx Instructions .ROUTE .COMPLEX Qty: 90 3RF Dose Instruction: INJECT 10 TO 30 UNITS BEFORE MEALS PER MEALTIME CORRECTION SCHEDULE Patient Comments: Pt states he takes after meals depending on his BG reading - ML, RN 03/01/25 Rx Instructions: INJECT 10 TO 30 UNITS BEFORE MEALS PER MEALTIME CORRECTION SCHEDULE (DME) FreeStyle Bahman 2 [place] Misc See Rx Instructions .ROUTE .MEDSUPPLY Qty: 1 0RF Rx Instructions: As directed (DME) Knee Brace - STABILIZING See Rx Instructions .Route .MEDSUPPLY Qty: 1 1RF Rx Instructions: One RT KNEE STABILIZING BRACE; mirabegron [Myrbetriq] 50 mg tablet extended release 24 hr 50 mg PO DAILY Qty: 90 3RF aspirin 81 mg tablet,delayed release (DR/EC) 81 mg PO DAILY Patient Comments: 06/02/19-replaces 325mg. daily dose. [facility] discharge note. JOBY Mchugh (DME) lancets [FreeStyle Lancets] 28 gauge misc See Rx Instructions .ROUTE .MEDSUPPLY Qty: 400 3RF Rx Instructions: to test BS 4X daily for DM/E11.9 and to keep A1c at or under 7.0% (DME) pen needle, diabetic [BD Ultra-Fine Amber Pen Needle] 32 gauge x 5/32 needle 1 ea Miscellaneous QID Qty: 400 3RF Rx Instructions: E11.65 to administer insulin 4x/day (DME) Blood Glucose Test Strip See Rx Instructions .MEDSUPPLY Qty: 400 3RF Rx Instructions: As directed to check blood glucose four times daily. On insulin. Dispense covered brand. (DME) FreeStyle Bahman 2 Sensor Kit See Rx Instructions .ROUTE .MEDSUPPLY Qty: 2 11RF Rx Instructions: As directed Eliquis 5 mg tablet 5 mg PO BID Qty: 180 3RF Rx Instructions: PLEASE EXPLAIN WHAT HAPPENED TO 05/29/23 PRESCRIPTION? Jardiance 25 mg tablet See Rx Instructions .ROUTE .COMPLEX Qty: 90 3RF Dose Instruction: TAKE 1 TABLET EVERY MORNING Rx Instructions: TAKE 1 TABLET EVERY MORNING rosuvastatin 40 mg tablet See Rx Instructions .ROUTE .COMPLEX Qty: 90 3RF Dose Instruction: TAKE 1 TABLET DAILY Rx Instructions: TAKE 1 TABLET DAILY fenofibrate nanocrystallized [Tricor] 145 mg tablet 145 mg PO DAILY Qty: 90 3RF semaglutide 1 mg/dose (4 mg/3 mL) pen injector 1 mg subcut QWEEK Qty: 3 5RF furosemide 40 mg tablet 40 mg PO DAILY PRN (Reason: LEG SWELLING) Qty: 90 3RF Patient Comments: 11/15/24 pt takes very 3 days RH Rx Instructions: Re-start, 04/14 x 3-5 days levothyroxine 50 mcg tablet See Rx Instructions .ROUTE .COMPLEX Qty: 90 3RF Dose Instruction: TAKE 1 TABLET DAILY FOR THYROID Rx Instructions: TAKE 1 TABLET DAILY FOR THYROID nitroglycerin 0.4 mg tablet, sublingual 0.4 mg SL Q5M PRN (Reason: chest pain) Qty: 90 3RF Rx Instructions: Take 1 at onset of chest pain, may repeat x2 q5 min if pain continues. losartan 25 mg tablet See Rx Instructions .ROUTE .COMPLEX Qty: 90 0RF Dose Instruction: TAKE 1 TABLET AT BEDTIME FOR DIABETES, AND TO PROTECT KIDNEYS Rx Instructions: TAKE 1 TABLET AT BEDTIME FOR DIABETES, AND TO PROTECT KIDNEYS ketoconazole 2 % cream 1 applic topical DAILY Qty: 120 6RF Rx Instructions: Apply to 1g to skin and toenails once daily amlodipine 2.5 mg tablet 2.5 mg PO DAILY ezetimibe 10 mg tablet 10 mg PO DAILY oxycodone 5 mg tablet 5 mg PO QHS MDD 1 tab PRN (Reason: pain) Qty: 14 0RF insulin glargine [Lantus Solostar U-100 Insulin] 100 unit/mL (3 mL) insulin pen 65 unit Sub-Q QPM Rx Instructions: Or as directed for dx: E11.65 acetaminophen 500 mg tablet 1,000 mg PO Q8H PRN Qty: 90 0RF Rx Instructions: Take two tablets up to every 8 hours as needed for pain pantoprazole 40 mg tablet,delayed release (DR/EC) 40 mg PO DAILY Qty: 14 0RF Rx Instructions: Take one tablet once daily gabapentin 300 mg capsule 300 mg PO QHS Qty: 14 0RF Rx Instructions: Take one tablet at bedtime meloxicam 15 mg tablet 15 mg PO DAILY Qty: 30 1RF Rx Instructions: Take one tablet daily for pain and inflammation ergocalciferol (vitamin D2) [Vitamin D2] 1,250 mcg (50,000 unit) capsule 1,250 mcg PO .WEEKLY trazodone 50 mg tablet 50 mg PO QHS docusate sodium [Colace] 100 mg capsule 100 mg PO BID PRN Jardiance 25 mg Tablet 25 mg PO QAM Qty: 30 0RF allopurinol 100 mg Tablet 50 mg PO Q2D Qty: 15 0RF prednisone 20 mg Tablet See Taper PO DAILY Qty: 10 0RF Taper: Prednisone 20mg taper 40 mg Daily for 3 Days and 0 Hour 20 mg Daily for 3 Days and 0 Hour Discharge Instructions Instructions: Low Blood Sugar, Adult ED Additional Instructions: You were seen in the emergency department for your transient low blood sugar reading, this corrected with oral intake, whenever you have low blood sugar you should try to have some quick sugars like orange juice combined with long-acting carbohydrates like peanut butter sandwich something that we will sustain you over a longer term period of time, please continue normal medications and follow-up with your PCP, return for any emergent concerns. Stand Alone Forms: Portal Information Referrals: Richard Jeffers [Primary Care Provider, Medicine] Discharge Data Discharge Date/Time-TO BE ENTERED AT DEPARTURE: 04/15/25 13:57 HPI General Date/Time Provider Initiated Documentation: 04/15/25 12:08 . HPI Narrative: 74-year-old male presents by EMS for isolated low blood sugar readings at home, he read his blood sugar this morning and it was 50, he tried to drink some sugar water or other sugary drink at home and waited 1/2-hour where his blood sugar was down to 42. He was somewhat shaky at this time but denies any other symptoms, denies confusion, denies chest pain, denies syncope or dizziness, he called the ambulance and they did give him some more glucose and his blood sugar for them is 228, he currently has no symptoms here in the ER and just wanted to make sure he was doing the right thing by being checked out. Patient not anticoagulated. Related Data Home Medications ?Medication ?Instructions ?Recorded ?Confirmed aspirin 81 mg tablet,delayed 81 mg PO DAILY 06/02/19 1 06/13/24 release lancets 28 gauge (FreeStyle #400 ea 02/11/21 04/12/25 Lancets) pen needle, diabetic 32 gauge x #400 ea 03/25/2104/12/ (BD Ultra-Fine Amber Pen Needle) flash glucose scanning reader #1 ea 11/17/21 04/12/25 (FreeStyle Bahman 2 [place]) blood sugar diagnostic (Blood #400 ea 12/13/21 5 Glucose Test strips) flash glucose sensor (FreeStyle #2 ea 11/27/22 5 Bahman 2 Sensor kit) insulin aspart U-100 100 unit/mL See Rx Instructions . Route 05/29/23 04/12/25 (3 mL) subcutaneous pen (Novolog .COMPLEX #90 mL FlexPen U-100 Insulin aspart) apixaban 5 mg tablet (Eliquis) 5 mg PO BID #180 tabs 0 07/22/23 04/12/25 empagliflozin 25 mg tablet See Rx Instructions .Route 08/04/23 04/12/25 (Jardiance) .COMPLEX #90 tabs rosuvastatin 40 mg tablet See Rx Instructions .Route 0 09/16/23 04/12/25 .COMPLEX #90 tabs Knee Brace - STABILIZING #1 ea 10/25/23 04/12/25 fenofibrate nanocrystallized 145 145 mg PO DAILY #90 t ab-caps 02/24/24 04/12/25 mg tablet (Tricor) semaglutide 1 mg/dose (4 mg/3 mL) 1 mg (0.75 mL) subcu t QWEEK #3 mL 04/14/24 04/12/25 subcutaneous pen injector mirabegron 50 mg tablet,extended 50 mg PO DAILY #90 ta bs 04/28/24 04/12/25 release 24 hr (Myrbetriq) furosemide 40 mg tablet 40 mg PO DAILY PRN LEG SWELL ING 05/03/24 04/12/25 #90 tabs levothyroxine 50 mcg tablet See Rx Instructions .Route 05/03/24 04/12/25 .COMPLEX #90 tabs nitroglycerin 0.4 mg sublingual 0.4 mg sublingual Q5M PRN chest 05/03/24 04/12/25 tablet pain #90 tabs losartan 25 mg tablet See Rx Instructions .Route 0 07/06/24 04/12/25 .COMPLEX #90 tabs ketoconazole 2 % topical cream 1 applic topical DAILY #120 grams 11/28/24 04/12/25 insulin glargine 100 unit/mL (3 65 unit subcut QPM 11/2504/12/25 mL) subcutaneous pen (Lantus Solostar U-100 Insulin) acetaminophen 500 mg tablet 1,000 mg (2 x 500 mg) PO Q 8H PRN 12/13/24 04/12/25 pain #90 tabs gabapentin 300 mg capsule 300 mg PO QHS #14 caps 12/1304/12/25 meloxicam 15 mg tablet 15 mg PO DAILY #30 tabs 12/0204/12/25 pantoprazole 40 mg tablet,delayed 40 mg PO DAILY #14 t abs 12/13/24 04/12/25 release ergocalciferol (vitamin D2) 1,250 1,250 mcg PO .WEEKLY 12/15/24 04/12/25 mcg (50,000 unit) capsule (Vitamin D2) amlodipine 2.5 mg tablet 2.5 mg PO DAILY 12/21/2402/25 ezetimibe 10 mg tablet 10 mg PO DAILY 12/21/2404/03 oxycodone 5 mg tablet 5 mg PO QHS PRN pain #14 tab s 02/07/25 04/12/25 docusate sodium 100 mg capsule 100 mg PO BID PRN 03/0104/12/25 (Colace) trazodone 50 mg tablet 50 mg PO QHS 03/01/25 allopurinol 100 mg tablet 50 mg (1/2 x 100 mg) PO Q2D #15 03/05/25 04/12/25 tabs empagliflozin 25 mg tablet 25 mg PO QAM #30 tabs 03/0504/12/25 (Jardiance) prednisone 20 mg tablet See Taper PO DAILY #10 tabs 03/05/25 04/12/25 Previous Rx's ?Medication ?Instructions ?Recorded lancets 28 gauge (FreeStyle #400 ea 02/11/21 Lancets) pen needle, diabetic 32 gauge x #400 ea 03/25/21 (BD Ultra-Fine Amber Pen Needle) flash glucose scanning reader #1 ea 11/17/21 (FreeStyle Bahman 2 [place]) blood sugar diagnostic (Blood #400 ea 12/13/21 Glucose Test strips) flash glucose sensor (FreeStyle #2 ea 11/27/22 Bahman 2 Sensor kit) insulin aspart U-100 100 unit/mL See Rx Instructions . Route 05/29/23 (3 mL) subcutaneous pen (Novolog .COMPLEX #90 mL FlexPen U-100 Insulin aspart) apixaban 5 mg tablet (Eliquis) 5 mg PO BID #180 tabs 0 07/22/23 empagliflozin 25 mg tablet See Rx Instructions .Route 08/04/23 (Jardiance) .COMPLEX #90 tabs rosuvastatin 40 mg tablet See Rx Instructions .Route 0 09/16/23 .COMPLEX #90 tabs Knee Brace - STABILIZING #1 ea 10/25/23 fenofibrate nanocrystallized 145 145 mg PO DAILY #90 t ab-caps 02/24/24 mg tablet (Tricor) semaglutide 1 mg/dose (4 mg/3 mL) 1 mg (0.75 mL) subcu t QWEEK #3 mL 04/14/24 subcutaneous pen injector mirabegron 50 mg tablet,extended 50 mg PO DAILY #90 ta bs 04/28/24 release 24 hr (Myrbetriq) furosemide 40 mg tablet 40 mg PO DAILY PRN LEG SWELL ING 05/03/24 #90 tabs levothyroxine 50 mcg tablet See Rx Instructions .Route 05/03/24 .COMPLEX #90 tabs nitroglycerin 0.4 mg sublingual 0.4 mg sublingual Q5M PRN chest 05/03/24 tablet pain #90 tabs losartan 25 mg tablet See Rx Instructions .Route 0 07/06/24 .COMPLEX #90 tabs ketoconazole 2 % topical cream 1 applic topical DAILY #120 grams 11/28/24 acetaminophen 500 mg tablet 1,000 mg (2 x 500 mg) PO Q 8H PRN 12/13/24 pain #90 tabs gabapentin 300 mg capsule 300 mg PO QHS #14 caps 12/13 meloxicam 15 mg tablet 15 mg PO DAILY #30 tabs 12/02 06/28 pantoprazole 40 mg tablet,delayed 40 mg PO DAILY #14 t abs 12/13/24 release oxycodone 5 mg tablet 5 mg PO QHS PRN pain #14 tab s 02/07/25 allopurinol 100 mg tablet 50 mg (1/2 x 100 mg) PO Q2D #15 03/05/25 tabs empagliflozin 25 mg tablet 25 mg PO QAM #30 tabs 03/05 (Jardiance) prednisone 20 mg tablet See Taper PO DAILY #10 tabs 03/05/25 Allergies Allergy/AdvReac Type Severity Reaction Status Date / Time No Known Allergies Allergy Verified 04/10/25 13:39 General Stated Complaint: Diabetes CHRISTIANE: 3 Exam Narrative Exam Narrative: GENERAL APPEARANCE: Well-nourished, non-toxic, awake and alert, atraumatic, no acute distress. SKIN: Warm, pink, dry, intact, without rashes/lesions/ulcerations. HEAD: Normocephalic, atraumatic, normal hair distribution for gender/age. EYES: Normal conjunctiva, no exudates on lids/lashes. ENT: Nares patent, no circumoral cyanosis, no facial swelling NECK: Supple, trachea midline, painless cervical ROM. LUNGS/CHEST: Lungs CTA bilaterally-no rhonchi/rales/wheeze diffusely, non- labored respirations, normal A/P diameter, symmetrical expansion, no chest wall deformity HEART (CV/PV): Regular rate and rhythm without murmur, no peripheral edema, no JVD. ABDOMEN: Soft, non-distended, no guarding, no tenderness. MSK: Normal ROM, no swelling/deformity to bilateral UEs or LEs, moving all extremities without weakness, no cyanosis, spine midline without tenderness, normal curvature. NEURO: Mental Status AAOx4 - alert to person, place, time, events No facial droop, no forehead involvement. Motor: No focal weakness, no tremor Sensory: sensation intact to light touch globally. Gait normal: patient ambulated without ataxia into ED room. PSYCH: euthymic, cooperative, pleasant, appropriate speech Course Vital Signs Vital signs: Vital Signs Temperature 36.2 C L 04/15/25 12:02 Pulse 60 04/15/25 12:02 Respiratory Rate 16 04/15/25 12:02 Blood Pressure 142/44 H 04/15/25 12:02 Pulse Oximetry 98 04/15/25 12:02 Temperature 36.2 C L 04/15/25 12:09 Pulse 60 04/15/25 12:09 Respiratory Rate 16 04/15/25 12:09 Blood Pressure 142/44 H 04/15/25 12:09 Pulse Oximetry 98 04/15/25 12:09 Lab/Test Results Lab/Test Results: Laboratory Tests Range/Units 04/15/25 12:15 WBC (4.4-10.8) 10^3/uL 11.91 H RBC (4.36-5.78) 10^6/uL 3.88 L Hgb (13.5-17.5) g/dL 12.4 L Hct (40.0-50.0) % 37.4 L MCV (80-95) fL 96 H MCH (27.0-33.0) pg 32.0 MCHC (32.0-36.0) % 33.2 RDW (11.8-14.1) % 13.0 Plt Count (130-400) 10^3/uL 343 MPV (8.0-11.0) fL 10.8 Immature Gran % % 0.5 Neutrophils % % 82.8 Lymphocytes % % 8.2 Monocytes % % 7.6 Eosinophils % % 0.6 Basophils % % 0.3 Nucleated RBC % (0.0-0.3) % 0.0 Absolute Neutrophils (1.2-6.7) 10^3/uL 9.86 H Absolute Lymphocytes (1.2-3.4) 10^3/uL 0.98 L Absolute Monocytes (0.1-0.8) 10^3/uL 0.91 H Absolute Eosinophils (0.0-0.7) 10^3/uL 0.07 Absolute Basophils (0.0-0.2) 10^3/uL 0.04 Sodium (136-145) mmol/L 140 Potassium (3.5-5.1) mmol/L 3.4 L Chloride (98-107) mmol/L 103 Carbon Dioxide (20.0-31.0) mmol/L 27.7 Anion Gap (3-11) mmol/L 9.3 BUN (9-23) mg/dL 37 H Creatinine (0.73-1.18) mg/dL 1.54 H Est GFR (CKD-EPI 2020) (mL/min/1.73m2) 44.58 Glucose (74-106) mg/dL 167 H Calcium (8.3-10.6) mg/dL 9.4 Total Bilirubin (0.2-1.2) mg/dL 0.4 AST (<34) U/L 19 ALT (10-49) U/L 13 Alkaline Phosphatase (46-116) U/L 58 Total Protein (5.7-8.2) g/dL 7.4 Albumin (3.2-5.0) g/dL 4.5 Medical Decision Making This dictation utilizes [id number] dictation software and may contain unedited grammatical errors. 74-year-old male presents by EMS for isolated low blood sugar readings at home, he read his blood sugar this morning and it was 50, he tried to drink some sugar water or other sugary drink at home and waited 1/2-hour where his blood sugar was down to 42. He was somewhat shaky at this time but denies any other symptoms, denies confusion, denies chest pain, denies syncope or dizziness, he called the ambulance and they did give him some more glucose and his blood sugar for them is 228, he currently has no symptoms here in the ER and just wanted to make sure he was doing the right thing by being checked out. Patients' medical history: CHF, diabetes mellitus, hypertension, atrial fibrillation, PAD, gout, peripheral neuropathy, CKD. Family and social history: Lives at home alone. Pertinent exam findings / vital signs include benign cardiopulmonary exam, stable vitals on arrival, benign abdomen, neuro intact, blood sugar 165 on arrival. Differential / pathologies of concern include transient hypotension in the setting of chronic diabetes mellitus. Diagnostic studies of: - CBC CMP-shows glucose 167, nonspecific leukocytosis of 11.9 no other actionable abnormalities. Interventions of: - Provided food and rechecked his glucose which was stable. ED Course/Assessment/Plan: 74-year-old male presents with low blood sugar readings this morning, he did attempt glucose intake at home but stated his blood sugar dropped 30 minutes later, with EMS and route here it was 228 we have stable blood sugars in the 160s here and we did feed the patient counseled to combine quick acting glucose and complex carbohydrates when he gets low blood sugar, strict return criteria for any emergent concerns. Findings not consistent with active hypoglycemia, DKA. Disposition of Low Blood Sugar in Diabetes. Patient verbalized understanding of the plan and return to ED criteria and engaged in shared decision making. Medical Records Medical records reviewed: Yes I reviewed the patient's medical records. Lab Data Lab results reviewed: Yes I reviewed the patient's lab results. Labs: Laboratory Tests Range/Units 04/15/25 12:15 WBC (4.4-10.8) 10^3/uL 11.91 H RBC (4.36-5.78) 10^6/uL 3.88 L Hgb (13.5-17.5) g/dL 12.4 L Hct (40.0-50.0) % 37.4 L MCV (80-95) fL 96 H MCH (27.0-33.0) pg 32.0 MCHC (32.0-36.0) % 33.2 RDW (11.8-14.1) % 13.0 Plt Count (130-400) 10^3/uL 343 MPV (8.0-11.0) fL 10.8 Immature Gran % % 0.5 Neutrophils % % 82.8 Lymphocytes % % 8.2 Monocytes % % 7.6 Eosinophils % % 0.6 Basophils % % 0.3 Nucleated RBC % (0.0-0.3) % 0.0 Absolute Neutrophils (1.2-6.7) 10^3/uL 9.86 H Absolute Lymphocytes (1.2-3.4) 10^3/uL 0.98 L Absolute Monocytes (0.1-0.8) 10^3/uL 0.91 H Absolute Eosinophils (0.0-0.7) 10^3/uL 0.07 Absolute Basophils (0.0-0.2) 10^3/uL 0.04 Sodium (136-145) mmol/L 140 Potassium (3.5-5.1) mmol/L 3.4 L Chloride (98-107) mmol/L 103 Carbon Dioxide (20.0-31.0) mmol/L 27.7 Anion Gap (3-11) mmol/L 9.3 BUN (9-23) mg/dL 37 H Creatinine (0.73-1.18) mg/dL 1.54 H Est GFR (CKD-EPI 2020) (mL/min/1.73m2) 44.58 Glucose (74-106) mg/dL 167 H Calcium (8.3-10.6) mg/dL 9.4 Total Bilirubin (0.2-1.2) mg/dL 0.4 AST (<34) U/L 19 ALT (10-49) U/L 13 Alkaline Phosphatase (46-116) U/L 58 Total Protein (5.7-8.2) g/dL 7.4 Albumin (3.2-5.0) g/dL 4.5 Quality:SDOH Health Related Social Needs: Health related social needs daily activities lonely/is olated Health related social needs details Pt states he is in dependent at baseline. He states he will need help if he continues to have trouble weight bearing on his left foot. Pt currently from his at this time. PFSH All Active Problems (Updated 04/15/25 @ 13:27 by JOBY Rod) Low blood sugar in diabetes (Acute) Arthritis of left midfoot (Acute) Pes planus of left foot (Acute) Gout (Acute) Acute non-ST elevation myocardial infarction (NSTEMI) (Acute) Edema (Acute) Venous insufficiency (Acute) Pain in left foot (Acute) Plantar fasciitis of left foot (Acute) Gout due to renal impairment involving toe of right foot (Acute) Hypercalcemia (Acute) Arthritis of right knee (Acute) 40MG DEPO MEDROL 08/08/24 Peripheral sensory neuropathy (Acute) Hammer toes, bilateral (Acute) Sensation of knee instability (Acute) Unstable right knee (Acute) Cardiomyopathy (Acute) Toenail deformity (Acute) Coordination of complex care (Acute) Chart Review ID several Dx/Tx needing re-assessment or Hx requiring re- evaluation ([facility] apr?)(Bi-Pap ordered 12/2023, rec'd?)(Fe Infusion)(Vit D started? re-checked?)(++) Bradycardia (Acute) Noted for some time (1/2 dose trialed in 2021 before change in PCP)(chart reviewed, 05/30/23: dizziness incompletely evaluated 2' pt leaving [facility] AMA.. ACS ruled out 01/08-12/23.. Metoprolol decreased from 25mg BID per [facility], but maybe NOT implemented? ..and missed in FU! 05/30/23, ik Diuresis (Acute) actively diuresing, good results with q 2-3 days lasix (May 2023). Hx exacerbated CHF in Fall 2022 (AMA 2' intolerance diuretics, unable to get to bathroom; poor sleep 2' noise + uncomfortable bed)((Rx if HOSPTLZATN needed .. ik, 04/2023)) Pitting edema (Chronic) improved with diuretics (mar-apr 2023) .. cont q2 days.. [ ] cardio [facility] review/eval for ortho surgery Low vitamin D level (Acute) Very low, 7.9! Essential hypertension (Chronic 01/31/13) CKD (chronic kidney disease) stage 3, GFR 30-59 ml/min (Chronic) History of kidney injury (Acute) GLENYS 2' furosemide, 04/17/23, but needed for HF/Edema.. Seeing Nephrology (quarterly) Decreased dorsalis pedis pulse (Acute) per Pod, 01/13/23 (2/4) Absence of posterior tibial pulse (Acute) per Pod, 01/13/23 Coronary artery disease (Chronic) 3-vessel (LAD, LCX, RCA) Acute exacerbation of congestive heart failure (Acute) ED --> Hospitalized for diuresis, but no mosqueda & pt unable to sleep (left AMA) Cardiomegaly (Acute) CXR; ECHO 05/2019 [facility]--LVEF 53%, +LVH (mild), no significant valvular disease; stable compared with 2017 study Hx of iron deficiency anemia (Acute) improved with iron infusion, but did not feel better (possible iron infusions exacerb HF? ~ Mar--Apr 2023)(doubtful based on no IVF, but possible) Fatigue (Acute) Worsened per pt, affecting ADL .. not just de-conditioning? Osteoarthritis of right knee (Acute) DEPO MEDROL 08/14/22 Diabetes mellitus with neuropathy (Chronic) Reduced monofilament 06/24/2019 Goal A1C 7.5% or less Uncontrolled diabetes mellitus (Acute) Ortho Surgery OK < 8 (Dr. Ceja).. 10/2023 .. Goal </=7.5% Current use of insulin (Chronic) Cervical disc disorder with myelopathy (Acute) right arm Overactive bladder (Chronic) Myrbetriq RE-started, 03/2023.. rptd improved @ 04/10/23 ov, ik .. Oxybutynin, discontinued 06/24/19 in favor of optimizing DMT2 management Ataxia (Acute) Asymmetrical sensorineural hearing loss (Acute) Cognitive impairment (Acute) Forgetting, but using notes/print-outs .. ex(?)- helps .. Nail dystrophy (Acute) Onychomycosis (Acute) Tinea pedis (Acute) Blisters of multiple sites (Acute ~01/13/23) 01/13/23 [facility] note- Dr. Barker: Seropurulent Blisters, B/L legs.HE Metatarsalgia of left foot (Acute) Pain of right great toe (Acute) Medical History HTN (hypertension) Diabetes mellitus (HFpEF) heart failure with preserved ejection fraction Osteoarthritis of both knees CHF (congestive heart failure), NYHA class II EF 40% (12/2022), decreased from 2019 .. Clinical Dx ClassII Unsteady gait Dizziness incompletely evaluated 2' pt leaving [facility] AMA.. ACS ruled out 01/08- 12/23.. Metoprolol decreased from 25mg BID per [facility], but maybe NOT implemented? ..and missed in FU! 05/30/23, ik Anemia Atrial fibrillation Apixaban 06/22/2019 Hyperlipidemia (08/17/12) Acquired hypothyroidism (10/28/16) High TSH, but WNL T4 (2021) .. re-checking MERRITT (obstructive sleep apnea) Bi-PAP 07/23/19 PAD (peripheral artery disease) Left, per OSVALDO (12/2022) Stopped smoking with greater than 20 pack year history Lung CT Screening, 07/16/20 Epiretinal membrane (~01/2023) right eye Slow heart rate Noted for some time (1/2 dose trialed in 2021 before change in PCP)(chart reviewed, 05/30/23: dizziness incompletely evaluated 2' pt leaving [facility] AMA.. ACS ruled out 01/08-12/23.. Metoprolol decreased from 25mg BID per [facility], but maybe NOT implemented? ..and missed in FU! 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 Chronic and recurrent low back pain L4-[address] scan in 1993, recurrent since then intermittently. Hypomagnesemia (06/22/14) Only 1.0 in the ER today. Pipe smoker Surgical History History of total left knee replacement (12/13/24) History of colonoscopy (~02/2023) with Mac S/P cardiac catheterization (05/31/19) 2019 History of cataract removal with insertion of prosthetic lens (11/23/14) History of umbilical hernia repair Status post appendectomy Status post coronary artery stent placement (09/26/16) One vessel for unstable angina Status post coronary artery bypass with autogenous graft, 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) 2017 Repair of umbilical hernia Fracture, Open Treatment ORIF-LEFT SYNDESMOSIS WITH TWO SCREWS Colonoscopy - IV Sedation Extraction of cataract 11/23/14; DR. GOINS; RIGHT EYE 12/07/14; DR. GOINS; LEFT EYE Appendectomy Family History Father Diabetes Dementia Neoplasm PANCREATIC Social History Smoking/Tobacco Use Status: Former Tobacco Use Quit Date: 01/02/17 Pack-years: 40 Tobacco: How many years used: 40 Quit status: has quit before Smoking risk assessment performed?: Yes Alcohol Intake: former Counseling given: Yes Counseling provided: reduce to 2 or less/day Details: 2-3 oz at a time Drug use: Never Substance use type: does not use Adopted: No Caregiver/Support person: No Foster care: No Household members: none and other Details: Cats Housing: house Number of Children: 3 number of grandchildren: 4 Communication Needs: None Do you need help understanding health information?: Rarely Pets and animals: Yes Pets and animals: cat(s) Do you think of yourself as: straight/heterosexual Current gender identity: male What is your relationship status?: How often do you talk on the phone with friends or family?: three or more times per week How often do you get together with friends or relatives?: twice per week Panel score (0-1 are the most socially isolated patients): 1 What type of physical activity do you participate in: other Details: Tredmill Duration: 45-60 minutes/day Frequency: 5-6 times per week Special isi needs: No Seatbelt use: always Helmet use: Yes Helmet use: always Drive intox 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 cdl bulk driver: No Working smoke detector in home: No Fire extinguisher in home: No Carbon monox detector in home: No Do you feel safe at home: Yes Do you feel safe in your relationship?: Yes
== END 2025-04-15 13:57 | disposition home or self-care (01) ==
PROVIDERS: Emergency Provider Physician Assistant; PCP Student in an Organized Health Care Education/Training Program
DX: E11.649 Type 2 diabetes mellitus with hypoglycemia without coma (principal)
CPT/HCPCS: 99283 ×2; 36415; 36416; 82962; 80053; 85025

== ENCOUNTER 2025-04-29 16:49 | Inpatient (IN) | payer MEDICARE, OTHER, SELFPAY ==
[2025-04-29] VITALS (65 sets, daily range): BP systolic 86–178; BP diastolic 22–102; PULSE 47–82; RESP 10–24; TEMP 36.8–37; O2SAT 92–100
--- NOTE | 2025-04-29 16:45 | RT.EKG_ITS ---
APPROVED REPORT Exam: Resting ECG Reason for Exam: Chest Pain Patient Location: E HR:60 bpm ECG Measurements Heart Rate 60 AXIS [place] [id number] P [id number] QRSd 162 QRS -75 QT 451 T 75 QTc 452 Conclusion Atrial fibrillation...V-rate 53- 76, irreg A-activity RBBB and LAFB...QRSd >120mS, axis(-40,240)
--- NOTE | 2025-04-29 17:27 | W.ED.GENAD ---
Discharge Plan Disposition Patient Disposition: Admit to [facility] Condition: Serious Discharge Details Clinical Impression: Non-ST elevation RI (NSTEMI) Primary Care Provider: Richard Jeffers ED Provider: Gaurav Banks [place] Meds and New Rx's Prescriptions: No Action insulin aspart U-100 [Novolog FlexPen U-100 Insulin] 100 unit/mL (3 mL) insulin pen See Rx Instructions .ROUTE .COMPLEX Qty: 90 3RF Dose Instruction: INJECT 10 TO 30 UNITS BEFORE MEALS PER MEALTIME CORRECTION SCHEDULE Patient Comments: Pt states he takes after meals depending on his BG reading - ML, RN 03/01/25 Rx Instructions: INJECT 10 TO 30 UNITS BEFORE MEALS PER MEALTIME CORRECTION SCHEDULE (DME) FreeStyle Bahman 2 [place] Misc See Rx Instructions .ROUTE .MEDSUPPLY Qty: 1 0RF Rx Instructions: As directed (DME) Knee Brace - STABILIZING See Rx Instructions .Route .MEDSUPPLY Qty: 1 1RF Rx Instructions: One RT KNEE STABILIZING BRACE; mirabegron [Myrbetriq] 50 mg tablet extended release 24 hr 50 mg PO DAILY Qty: 90 3RF aspirin 81 mg tablet,delayed release (DR/EC) 81 mg PO DAILY Patient Comments: 06/02/19-replaces 325mg. daily dose. [facility] discharge note. JOBY Mchugh (DME) lancets [FreeStyle Lancets] 28 gauge misc See Rx Instructions .ROUTE .MEDSUPPLY Qty: 400 3RF Rx Instructions: to test BS 4X daily for DM/E11.9 and to keep A1c at or under 7.0% (DME) pen needle, diabetic [BD Ultra-Fine Amber Pen Needle] 32 gauge x 5/32 needle 1 ea Miscellaneous QID Qty: 400 3RF Rx Instructions: E11.65 to administer insulin 4x/day (DME) Blood Glucose Test Strip See Rx Instructions .MEDSUPPLY Qty: 400 3RF Rx Instructions: As directed to check blood glucose four times daily. On insulin. Dispense covered brand. (DME) FreeStyle Bahman 2 Sensor Kit See Rx Instructions .ROUTE .MEDSUPPLY Qty: 2 11RF Rx Instructions: As directed Eliquis 5 mg tablet 5 mg PO BID Qty: 180 3RF Rx Instructions: PLEASE EXPLAIN WHAT HAPPENED TO 05/29/23 PRESCRIPTION? Jardiance 25 mg tablet See Rx Instructions .ROUTE .COMPLEX Qty: 90 3RF Dose Instruction: TAKE 1 TABLET EVERY MORNING Rx Instructions: TAKE 1 TABLET EVERY MORNING rosuvastatin 40 mg tablet See Rx Instructions .ROUTE .COMPLEX Qty: 90 3RF Dose Instruction: TAKE 1 TABLET DAILY Rx Instructions: TAKE 1 TABLET DAILY fenofibrate nanocrystallized [Tricor] 145 mg tablet 145 mg PO DAILY Qty: 90 3RF semaglutide 1 mg/dose (4 mg/3 mL) pen injector 1 mg subcut QWEEK Qty: 3 5RF furosemide 40 mg tablet 40 mg PO DAILY PRN (Reason: LEG SWELLING) Qty: 90 3RF Patient Comments: 11/15/24 pt takes very 3 days RH Rx Instructions: Re-start, 04/14 x 3-5 days levothyroxine 50 mcg tablet See Rx Instructions .ROUTE .COMPLEX Qty: 90 3RF Dose Instruction: TAKE 1 TABLET DAILY FOR THYROID Rx Instructions: TAKE 1 TABLET DAILY FOR THYROID nitroglycerin 0.4 mg tablet, sublingual 0.4 mg SL Q5M PRN (Reason: chest pain) Qty: 90 3RF Rx Instructions: Take 1 at onset of chest pain, may repeat x2 q5 min if pain continues. losartan 25 mg tablet See Rx Instructions .ROUTE .COMPLEX Qty: 90 0RF Dose Instruction: TAKE 1 TABLET AT BEDTIME FOR DIABETES, AND TO PROTECT KIDNEYS Rx Instructions: TAKE 1 TABLET AT BEDTIME FOR DIABETES, AND TO PROTECT KIDNEYS ketoconazole 2 % cream 1 applic topical DAILY Qty: 120 6RF Rx Instructions: Apply to 1g to skin and toenails once daily amlodipine 2.5 mg tablet 2.5 mg PO DAILY ezetimibe 10 mg tablet 10 mg PO DAILY insulin glargine [Lantus Solostar U-100 Insulin] 100 unit/mL (3 mL) insulin pen 65 unit Sub-Q QPM Rx Instructions: Or as directed for dx: E11.65 acetaminophen 500 mg tablet 1,000 mg PO Q8H PRN Qty: 90 0RF Rx Instructions: Take two tablets up to every 8 hours as needed for pain pantoprazole 40 mg tablet,delayed release (DR/EC) 40 mg PO DAILY Qty: 14 0RF Rx Instructions: Take one tablet once daily gabapentin 300 mg capsule 300 mg PO QHS Qty: 14 0RF Rx Instructions: Take one tablet at bedtime ergocalciferol (vitamin D2) [Vitamin D2] 1,250 mcg (50,000 unit) capsule 1,250 mcg PO .WEEKLY trazodone 50 mg tablet 50 mg PO QHS docusate sodium [Colace] 100 mg capsule 100 mg PO BID PRN Jardiance 25 mg Tablet 25 mg PO QAM Qty: 30 0RF allopurinol 100 mg Tablet 50 mg PO Q2D Qty: 15 0RF prednisone 20 mg Tablet See Taper PO DAILY Qty: 10 0RF Taper: Prednisone 20mg taper 40 mg Daily for 3 Days and 0 Hour 20 mg Daily for 3 Days and 0 Hour HPI General Mode of arrival: EMS. Date/Time Provider Initiated Documentation: 04/29/25 17:01. Limitations to Documentation: no limitations. Information obtained by: patient. History of Present Illness 74 year old M presents to the emergency department with the chief complaint of chest pain, described as moderate, Patient started experiencing this hour(s) (3) and it has been intermittent. No relieving factors improve symptom(s), No exacerbating factors reported . Patient notes chest pain; denies fever/chills and shortness of breath. Patient did receive the following treatments prior to arrival, none Related Data Home Medications ?Medication ?Instructions ?Recorded ?Confirmed aspirin 81 mg tablet,delayed 81 mg PO DAILY 06/02/19 04/29/25 release lancets 28 gauge (FreeStyle #400 ea 02/11/21 04/29/25 Lancets) pen needle, diabetic 32 gauge x #400 ea 03/25/21 04/29/25 5/32 (BD Ultra-Fine Amber Pen Needle) flash glucose scanning reader #1 ea 11/17/21 04/29/25 (FreeStyle Bahman 2 [place]) blood sugar diagnostic (Blood #400 ea 12/13/21 04/29/25 Glucose Test strips) flash glucose sensor (FreeStyle #2 ea 11/27/22 04/29/25 Bahman 2 Sensor kit) insulin aspart U-100 100 unit/mL See Rx Instructions .Route 05/29/23 04/29/25 (3 mL) subcutaneous pen (Novolog .COMPLEX #90 mL FlexPen U-100 Insulin aspart) apixaban 5 mg tablet (Eliquis) 5 mg PO BID #180 tabs 07/22/23 04/29/25 empagliflozin 25 mg tablet See Rx Instructions .Route 04/02/24 12/27/25 (Jardiance) .COMPLEX #90 tabs rosuvastatin 40 mg tablet See Rx Instructions .Route 09/16/23 04/29/25 .COMPLEX #90 tabs Knee Brace - STABILIZING #1 ea 10/25/23 04/29/25 fenofibrate nanocrystallized 145 145 mg PO DAILY #90 tab-caps 02/24/24 04/29/25 mg tablet (Tricor) semaglutide 1 mg/dose (4 mg/3 mL) 1 mg (0.75 mL) subcut QWEEK #3 mL 04/14/24 04/29/25 subcutaneous pen injector mirabegron 50 mg tablet,extended 50 mg PO DAILY #90 tabs 04/28/24 04/29/25 release 24 hr (Myrbetriq) furosemide 40 mg tablet 40 mg PO DAILY PRN LEG SWELLING 05/03/24 04/29/25 #90 tabs levothyroxine 50 mcg tablet See Rx Instructions .Route 05/03/24 04/29/25 .COMPLEX #90 tabs nitroglycerin 0.4 mg sublingual 0.4 mg sublingual Q5M PRN chest 05/03/24 04/29/25 tablet pain #90 tabs losartan 25 mg tablet See Rx Instructions .Route 07/06/24 04/29/25 .COMPLEX #90 tabs ketoconazole 2 % topical cream 1 applic topical DAILY #120 grams 11/28/24 04/29/25 insulin glargine 100 unit/mL (3 65 unit subcut QPM 12/08/24 04/29/25 mL) subcutaneous pen (Lantus Solostar U-100 Insulin) acetaminophen 500 mg tablet 1,000 mg (2 x 500 mg) PO Q8H PRN 12/13/24 04/29/25 pain #90 tabs gabapentin 300 mg capsule 300 mg PO QHS #14 caps 12/13/24 04/29/25 pantoprazole 40 mg tablet,delayed 40 mg PO DAILY #14 tabs 12/13/24 04/29/25 release ergocalciferol (vitamin D2) 1,250 1,250 mcg PO .WEEKLY 12/15/24 04/29/25 mcg (50,000 unit) capsule (Vitamin D2) amlodipine 2.5 mg tablet 2.5 mg PO DAILY 12/21/24 04/29/25 ezetimibe 10 mg tablet 10 mg PO DAILY 12/21/24 04/29/25 docusate sodium 100 mg capsule 100 mg PO BID PRN 03/01/25 04/29/25 (Colace) trazodone 50 mg tablet 50 mg PO QHS 03/01/25 04/29/25 allopurinol 100 mg tablet 50 mg (1/2 x 100 mg) PO Q2D #15 03/05/25 04/29/25 tabs empagliflozin 25 mg tablet 25 mg PO QAM #30 tabs 03/05/25 04/29/25 (Jardiance) prednisone 20 mg tablet See Taper PO DAILY #10 tabs 03/05/25 04/29/25 Previous Rx's ?Medication ?Instructions ?Recorded lancets 28 gauge (FreeStyle #400 ea 02/11/21 Lancets) pen needle, diabetic 32 gauge x #400 ea 03/25/21 (BD Ultra-Fine Amber Pen Needle) flash glucose scanning reader #1 ea 11/17/21 (FreeStyle Bahman 2 [place]) blood sugar diagnostic (Blood #400 ea 12/13/21 Glucose Test strips) flash glucose sensor (FreeStyle #2 ea 11/27/22 Bahman 2 Sensor kit) insulin aspart U-100 100 unit/mL See Rx Instructions .Route 05/29/23 (3 mL) subcutaneous pen (Novolog .COMPLEX #90 mL FlexPen U-100 Insulin aspart) apixaban 5 mg tablet (Eliquis) 5 mg PO BID #180 tabs 07/22/23 empagliflozin 25 mg tablet See Rx Instructions .Route 08/04/23 (Jardiance) .COMPLEX #90 tabs rosuvastatin 40 mg tablet See Rx Instructions .Route 09/16/23 .COMPLEX #90 tabs Knee Brace - STABILIZING #1 ea 10/25/23 fenofibrate nanocrystallized 145 145 mg PO DAILY #90 tab-caps 02/24/24 mg tablet (Tricor) semaglutide 1 mg/dose (4 mg/3 mL) 1 mg (0.75 mL) subcut QWEEK #3 mL 04/14/24 subcutaneous pen injector mirabegron 50 mg tablet,extended 50 mg PO DAILY #90 tabs 12/26/24 release 24 hr (Myrbetriq) furosemide 40 mg tablet 40 mg PO DAILY PRN LEG SWELLING 05/03/24 #90 tabs levothyroxine 50 mcg tablet See Rx Instructions .Route 05/03/24 .COMPLEX #90 tabs nitroglycerin 0.4 mg sublingual 0.4 mg sublingual Q5M PRN chest 05/03/24 tablet pain #90 tabs losartan 25 mg tablet See Rx Instructions .Route 07/06/24 .COMPLEX #90 tabs ketoconazole 2 % topical cream 1 applic topical DAILY #120 grams 11/28/24 acetaminophen 500 mg tablet 1,000 mg (2 x 500 mg) PO Q8H PRN 12/13/24 pain #90 tabs gabapentin 300 mg capsule 300 mg PO QHS #14 caps 12/13/24 pantoprazole 40 mg tablet,delayed 40 mg PO DAILY #14 tabs 12/13/24 release allopurinol 100 mg tablet 50 mg (1/2 x 100 mg) PO Q2D #15 03/05/25 tabs empagliflozin 25 mg tablet 25 mg PO QAM #30 tabs 03/05/25 (Jardiance) prednisone 20 mg tablet See Taper PO DAILY #10 tabs 03/05/25 Allergies Allergy/AdvReac Type Severity Reaction Status Date / Time No Known Allergies Allergy Verified 04/29/25 17:02 General Stated Complaint: Chest Pain CHRISTIANE: 3 Review of Systems All systems reviewed & are unremarkable except as noted in HPI and below Constitutional Constitutional: Denies chills, Denies fever(s) and Denies weakness Cardiovascular Cardiovascular: Reports chest pain and Denies dyspnea Respiratory Respiratory: Denies cough and Denies dyspnea Gastrointestinal Gastrointestinal: Denies abdominal pain, Denies nausea and Denies vomiting Neurologic Neurologic: Denies weakness Exam Const General: no acute distress Orientation: alert [facility] Head: normal to inspection Ears: external ears normal General nose exam: external nose normal Mouth: moist mucous membranes Eyes General: appearance normal, both eyes and all related structures Neck Neck: normal visual inspection Resp Effort & Inspection: normal respiratory effort and able to speak in complete sentences Auscultation: clear to auscultation bilaterally Cardio Jugular venous pressure: no JVD Rate: regular rate GI Palpation: soft and nontender Skin General skin exam: no rashes or lesions noted Neuro General: patient alert and patient oriented x3 Extrem General: normal to inspection Psych Mental Status: mental status grossly normal Course Vital Signs Vital signs: Vital Signs Temperature 37.0 C 04/29/25 16:50 Pulse 78 04/29/25 16:50 Respiratory Rate 18 04/29/25 16:50 Blood Pressure 152/51 H 04/29/25 16:50 Pulse Oximetry 98 04/29/25 16:50 Temperature 37.0 C 04/29/25 16:50 Pulse 78 04/29/25 16:50 Respiratory Rate 18 04/29/25 16:50 Blood Pressure 152/51 H 04/29/25 16:50 Pulse Oximetry 98 04/29/25 16:50 Pain Level 5 04/29/25 16:50 Medical Decision Making 74-year-old male with a history of coronary artery disease status post CABG, diabetes, who comes in with chief complaint of chest pain that he says is resolved with nitro earlier and then had a recurrence of symptoms which he took another nitro and resolved his symptoms and decided to call EMS. EMS given 324 mg of aspirin. He currently has 1 out of 10 chest achiness . He does note that he ran out of his medications this morning due to an issue with the pharmacy that delivers his prescriptions. He denies any diaphoresis, nausea vomiting, radiation of pain. He is well-appearing speaking full sentences. He has clear lung sounds, no abdominal tenderness, no calf tenderness or JVD. Given his history we will do a CBC CMP and troponins. He has no tearing back pain to suggest dissection. He has no tachycardia or hypoxia to suggest PE. pt's troponin 86, denies pain, delta troponin negative. Labs otherwise show no significant changes from baseline. xray no acute findings delta troponin 116 and he has mild 2/10 pain, will order heparin and nitro drip, will also consult [facility] [place] That the patient had a cath earlier this year which showed patent bypass grafts. They recommended trying to optimize his medical therapy and agreed with heparin for at least 48 hours and adding Imdur and if his blood pressure allows the amlodipine can be increased to 5 mg. Will discuss with hospitalist about admission here and getting an echo on Thursday. spoke with flap maker Dr. Bob fellow at [facility] [place] who advised Differential Diagnosis Differential Diagnosis: nstemi, anxiety, angina Medical Records Medical records reviewed: Yes I reviewed the patient's medical records. Lab Data Lab results reviewed: Yes I reviewed the patient's lab results. ECG Data Attestation: I personally reviewed and interpreted this ECG (s) as follows: Prior ECG tracings: available for review Interpretation: afib, rate of 60 no stemi or significant changes frmo prior ekg Quality:SDOH Health Related Social Needs: Health related social needs daily activities lonely/isolated Health related social needs details Pt states he is independent at baseline. He states he will need help if he continues to have trouble weight bearing on his left foot. Pt currently from his at this time. PFSH All Active Problems (Updated 04/29/25 @ 20:16 by Gaurav Banks MD) Non-ST elevation RI (NSTEMI) (Acute) Low blood sugar in diabetes (Acute) Arthritis of left midfoot (Acute) Pes planus of left foot (Acute) Gout (Acute) Acute non-ST elevation myocardial infarction (NSTEMI) (Acute) Edema (Acute) Venous insufficiency (Acute) Pain in left foot (Acute) Plantar fasciitis of left foot (Acute) Gout due to renal impairment involving toe of right foot (Acute) Hypercalcemia (Acute) Arthritis of right knee (Acute) 40MG DEPO MEDROL 08/08/24 Peripheral sensory neuropathy (Acute) Hammer toes, bilateral (Acute) Sensation of knee instability (Acute) Unstable right knee (Acute) Cardiomyopathy (Acute) Toenail deformity (Acute) Coordination of complex care (Acute) Chart Review ID several Dx/Tx needing re-assessment or Hx requiring re-evaluation ([facility] dec?)(Bi-Pap ordered 12/2023, rec'd?)(Fe Infusion)(Vit D started? re-checked?)(++) Bradycardia (Acute) Noted for some time (1/2 dose trialed in 2021 before change in PCP)(chart reviewed, 05/30/23: dizziness incompletely evaluated 2' pt leaving [facility] AMA.. ACS ruled out 01/08-12/23.. Metoprolol decreased from 25mg BID per [facility], but maybe NOT implemented? ..and missed in FU! 05/30/23, ik Diuresis (Acute) actively diuresing, good results with q 2-3 days lasix (May 2023). Hx exacerbated CHF in Fall 2022 (AMA 2' intolerance diuretics, unable to get to bathroom; poor sleep 2' noise + uncomfortable bed)((Rx if HOSPTLZATN needed .. ik, 04/2023)) Pitting edema (Chronic) improved with diuretics (mar-apr 2023) .. cont q2 days.. [ ] cardio [facility] review/eval for ortho surgery Low vitamin D level (Acute) Very low, 7.9! Essential hypertension (Chronic 01/31/13) CKD (chronic kidney disease) stage 3, GFR 30-59 ml/min (Chronic) History of kidney injury (Acute) GLENYS 2' furosemide, 04/17/23, but needed for HF/Edema.. Seeing Nephrology (quarterly) Decreased dorsalis pedis pulse (Acute) per Pod, 01/13/23 (2/4) Absence of posterior tibial pulse (Acute) per Pod, 01/13/23 Coronary artery disease (Chronic) 3-vessel (LAD, LCX, RCA) Acute exacerbation of congestive heart failure (Acute) ED --> Hospitalized for diuresis, but no mosqueda & pt unable to sleep (left AMA) Cardiomegaly (Acute) CXR; ECHO 05/2019 [facility]--LVEF 53%, +LVH (mild), no significant valvular disease; stable compared with 2017 study Hx of iron deficiency anemia (Acute) improved with iron infusion, but did not feel better (possible iron infusions exacerb HF? ~ Mar--Apr 2023)(doubtful based on no IVF, but possible) Fatigue (Acute) Worsened per pt, affecting ADL .. not just de-conditioning? Osteoarthritis of right knee (Acute) DEPO MEDROL 08/14/22 Diabetes mellitus with neuropathy (Chronic) Reduced monofilament 06/24/2019 Goal A1C 7.5% or less Uncontrolled diabetes mellitus (Acute) Ortho Surgery OK < 8 (Dr. Ceja).. 10/2023 .. Goal </=7.5% Current use of insulin (Chronic) Cervical disc disorder with myelopathy (Acute) right arm Overactive bladder (Chronic) Myrbetriq RE-started, 03/2023.. rptd improved @ 04/10/23 ov, ik .. Oxybutynin, discontinued 06/24/19 in favor of optimizing DMT2 management Ataxia (Acute) Asymmetrical sensorineural hearing loss (Acute) Cognitive impairment (Acute) Forgetting, but using notes/print-outs .. ex(?)- helps .. Nail dystrophy (Acute) Onychomycosis (Acute) Tinea pedis (Acute) Blisters of multiple sites (Acute ~01/13/23) 01/13/23 [facility] note- Dr. Barker: Seropurulent Blisters, B/L legs.HE Metatarsalgia of left foot (Acute) Pain of right great toe (Acute) Medical History HTN (hypertension) Diabetes mellitus (HFpEF) heart failure with preserved ejection fraction Osteoarthritis of both knees CHF (congestive heart failure), NYHA class II EF 40% (12/2022), decreased from 2019 .. Clinical Dx ClassII Unsteady gait Dizziness incompletely evaluated 2' pt leaving [facility] AMA.. ACS ruled out 01/08-12/23.. Metoprolol decreased from 25mg BID per [facility], but maybe NOT implemented? ..and missed in FU! 05/30/23, ik Anemia Atrial fibrillation Apixaban 06/22/2019 Hyperlipidemia (08/17/12) Acquired hypothyroidism (10/28/16) High TSH, but WNL T4 (2021) .. re-checking MERRITT (obstructive sleep apnea) Bi-PAP 07/23/19 PAD (peripheral artery disease) Left, per OSVALDO (12/2022) Stopped smoking with greater than 20 pack year history Lung CT Screening, 07/16/20 Epiretinal membrane (~01/2023) right eye Slow heart rate Noted for some time (1/2 dose trialed in 2021 before change in PCP)(chart reviewed, 05/30/23: dizziness incompletely evaluated 2' pt leaving [facility] AMA.. ACS ruled out 01/08-12/23.. Metoprolol decreased from 25mg BID per [facility], but maybe NOT implemented? ..and missed in FU! 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 Chronic and recurrent low back pain L4-[address] scan in 1993, recurrent since then intermittently. Hypomagnesemia (06/22/14) Only 1.0 in the ER today. Pipe smoker Surgical History History of total left knee replacement (12/13/24) History of colonoscopy (~02/2023) with Mac S/P cardiac catheterization (05/31/19) 2019 History of cataract removal with insertion of prosthetic lens (11/23/14) History of umbilical hernia repair Status post appendectomy Status post coronary artery stent placement (09/26/16) One vessel for unstable angina Status post coronary artery bypass with autogenous graft, 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) 2017 Repair of umbilical hernia Fracture, Open Treatment ORIF-LEFT SYNDESMOSIS WITH TWO SCREWS Colonoscopy - IV Sedation Extraction of cataract 11/23/14; DR. GOINS; RIGHT EYE 12/07/14; DR. GOINS; LEFT EYE Appendectomy Family History Father Diabetes Dementia Neoplasm PANCREATIC Social History Smoking/Tobacco Use Status: Former Tobacco Use Quit Date: 01/02/17 Pack-years: 40 Tobacco: How many years used: 40 Quit status: has quit before Smoking risk assessment performed?: Yes Alcohol Intake: former Counseling given: Yes Counseling provided: reduce to 2 or less/day Details: 2-3 oz at a time Drug use: Never Substance use type: does not use Adopted: No Caregiver/Support person: No Foster care: No Household members: none and other Details: Cats Housing: house Number of Children: 3 number of grandchildren: 4 Communication Needs: None Do you need help understanding health information?: Rarely Pets and animals: Yes Pets and animals: cat(s) Do you think of yourself as: straight/heterosexual Current gender identity: male What is your relationship status?: How often do you talk on the phone with friends or family?: three or more times per week How often do you get together with friends or relatives?: twice per week Panel score (0-1 are the most socially isolated patients): 1 What type of physical activity do you participate in: other Details: Tredmill Duration: 45-60 minutes/day Frequency: 5-6 times per week Special isi needs: No Seatbelt use: always Helmet use: Yes Helmet use: always Drive intox 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 warehouse 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
--- NOTE | 2025-04-29 17:30 | DI.RAD_ITS ---
Exam(s) XR CHEST 2V PA LATERAL EXAM: XR CHEST 2V PA LATERAL CLINICAL HISTORY: chest pain. TECHNIQUE: 2D digital imaging was performed. COMPARISON: CR,XR XR CHEST 2V PA LATERAL from 12/14/2024 FINDINGS: 2 views: Again noted are sternotomy wires and cardiomegaly. The mediastinum is not widened. Lungs are clear with no infiltrates nor pleural effusions. No pulmonary edema. No pneumothorax. IMPRESSION: Cardiomegaly. Sternotomy. No acute pulmonary findings. No significant change compared to 12/14/2024 DATA REPOSITORY: RADIATION DOSE DELIVERED:
[2025-04-29 17:35] LABS: Abs Immature Grans 0.06 10^3/uL (0.0-0.06); HCT 38.6 % (40.0-50.0); HGB 12.4 g/dL (13.5-17.5); Immature Grans % 0.5 %; MCH 31.0 pg (27.0-33.0); MCHC 32.1 % (32.0-36.0); MCV 97 fL (80-95); MPV 10.5 fL (8.0-11.0); Platelet Count 336 10^3/uL (130-400); RBC 4.00 10^6/uL (4.36-5.78); RDW 12.7 % (11.8-14.1); RDW-SD 44.8 fL; WBC 11.26 10^3/uL (4.4-10.8)
[2025-04-29 17:52] LABS: INR 1.0 (0.9-1.1); PTT Activated 23.6 sec (20.6-30.2); Prothrombin Time 10.2 sec (9.1-11.1)
[2025-04-29 17:55] LABS: ALT 17 U/L (10-49); AST 23 U/L (<34); Albumin 4.3 g/dL (3.2-5.0); Alkaline Phosphatase 72 U/L (46-116); Anion Gap 10.4 mmol/L (3-11); BUN 31 mg/dL (9-23); Bilirubin, Total 0.3 mg/dL (0.2-1.2); CO2 27.6 mmol/L (20.0-31.0); Calcium 9.6 mg/dL (8.3-10.6); Chloride 104 mmol/L (98-107); Glucose 196 mg/dL (74-106); Lipase 44 U/L (<53); Magnesium 1.8 mg/dL (1.6-2.6); Potassium 4.2 mmol/L (3.5-5.1); Sodium 142 mmol/L (136-145); Total Protein 7.1 g/dL (5.7-8.2)
[2025-04-29 18:06] LABS: Troponin I 86 ng/L (<54)
[2025-04-29 19:00] LABS: COVID-19 PCR Negative (Negative); RSV PCR Negative (Negative); Troponin I 116 ng/L (<54)
[2025-04-29] MEDS: Heparin in 0.45% NaCl 25,000 UNIT/250 ML BAG 10 UNIT IVINF (19:40)
[2025-04-29] MEDS: nitroGLYcerin in D5W 50 MG/250 ML BTL IV (19:41)
--- NOTE | 2025-04-29 20:26 | W.PM.HP.N ---
Date of service: 04/29/25 Time of Service: 20:26 Assessment and Plan Assessment and plan (1) Non-ST elevation CA (NSTEMI): Start date: 04/29/25 Status: Acute Assessment and plan: This is a 74-year-old gentleman who usually takes at least 1 nitroglycerin daily and presents with resting chest pain responsive to nitroglycerin. He also had elevation of his troponin but not significantly. Several measurements were performed and they appear to have peaked with slight decrease in his chest pain did completely resolve with morphine in addition to his nitroglycerin sublingually. Nitroglycerin drip was initiated but stopped because of blood pressure issues. He will continue 48 hours of heparin per [facility] [place] having had recent cardiac catheterization showing patent bypass grafts and coronary arteries. He is having resting chest pain. He is a diabetic and appears to be deconditioned. He is also very poor historian. He will be initiated on Imdur 30 mg daily along with his other medical regimen. This may need to be adjusted to his symptoms. He is nitroglycerin responsive. Long-term patient would do better with rehabilitation and he should follow-up with cardiology closely. He is a full code. (2) (HFpEF) heart failure with preserved ejection fraction: Assessment and plan: BNP was elevated but stable. Hold Lasix for now with this being taken only intermittently for leg swelling with no significant leg swelling but chronic changes. (3) Atrial fibrillation: Assessment and plan: Controlled rate. Patient is usually on apixaban which will be held having not taken the day of admission because of medication refills not happening at his local pharmacy. He is on a 48-hour heparin infusion for his non-STEMI. (4) Type 2 diabetes mellitus: Status: Chronic Assessment and plan: Glucometer measurements before meals and at bedtime with three quarters of his usual Lantus to be given at night with moderate sliding scale short acting insulin coverage for glucometer measures during the day with meals. (5) CKD (chronic kidney disease) stage 3, GFR 30-59 ml/min: Status: Chronic Assessment and plan: Monitor while hospitalized. This appears stable. (6) Hyperlipidemia: Assessment and plan: Continue statin therapy. (7) Acquired hypothyroidism: Assessment and plan: Continue outpatient medical therapy. TSH was normal. (8) MERRITT (obstructive sleep apnea): Assessment and plan: Patient does have a home CPAP and did not bring in his machine. Offer CPAP at night and encouraged to bring in home machine over the next 2 days. History of Present Illness History of Present Illness Chief Complaint: Recurring resting chest pain, responsive to nitroglycerin sublingually. Narrative: This is a 74-year-old male patient who is here for increase in frequency of resting chest pain responsive to nitroglycerin sublingually. He usually has chest pain at least daily and takes nitroglycerin daily. There is no change in his activity and the patient is fairly sedentary. The patient has not taken his medication the day of admission because of pharmacy issues. He is on Eliquis. He is [place] [facility] [place] CAD status post CABG with cardiac catheterization earlier this year showing patent bypass graft and coronary arteries. Patient was sitting in his chair the morning of presentation and had retrosternal chest pain which was relieved with 1 nitroglycerin sublingually. There were no associated symptoms. This was his typical daily chest pain. Later in the day he had more resting retrosternal chest pain with nitroglycerin sublingually x 1 giving relief, but he was concerned at the increased frequency. He called EMS and was given a full dose aspirin and transported to the ED for evaluation. He had no evidence of acute STEMI but his troponins were elevated and trending upward. His chest pain was responsive to nitroglycerin and he was initiated on nitroglycerin infusion but his blood pressure dropped and this was discontinued. [facility] [place] did recommend 48 hours of heparin with trending of troponins. They also advised starting patient on daily nitroglycerin with Imdur 30 mg. The patient was given oral isosorbide in the ED. He still had chest pressure at 1/10 when he was brought up to the ICU but this did completely resolved with morphine 4 mg IV. Patient did refuse to wear his CPAP not having his home machine and did have some insomnia but did sleep better after his chest pain resolved with morphine. We will continue to trend troponins especially now that his chest pain completely resolved. He has a full code. Review of Systems Narrative: 13 point review of systems otherwise unrevealing or stable. The patient is a vague historian and becomes easily agitated with conversation and wanting to be left alone. PFSH All Active Problems (Updated 04/29/25 @ 21:38 by Skyler Coley) Type 2 diabetes mellitus (Chronic) Non-ST elevation CA (NSTEMI) (Acute) Low blood sugar in diabetes (Acute) Arthritis of left midfoot (Acute) Pes planus of left foot (Acute) Gout (Acute) Acute non-ST elevation myocardial infarction (NSTEMI) (Acute) Edema (Acute) Venous insufficiency (Acute) Pain in left foot (Acute) Plantar fasciitis of left foot (Acute) Gout due to renal impairment involving toe of right foot (Acute) Hypercalcemia (Acute) Arthritis of right knee (Acute) 40MG DEPO MEDROL 08/08/24 Peripheral sensory neuropathy (Acute) Hammer toes, bilateral (Acute) Sensation of knee instability (Acute) Unstable right knee (Acute) Cardiomyopathy (Acute) Toenail deformity (Acute) Coordination of complex care (Acute) Chart Review ID several Dx/Tx needing re-assessment or Hx requiring re-evaluation ([facility] apr?)(Bi-Pap ordered 12/2023, rec'd?)(Fe Infusion)(Vit D started? re-checked?)(++) Bradycardia (Acute) Noted for some time (1/2 dose trialed in 2021 before change in PCP)(chart reviewed, 05/30/23: dizziness incompletely evaluated 2' pt leaving [facility] AMA.. ACS ruled out 01/08-12/23.. Metoprolol decreased from 25mg BID per [facility], but maybe NOT implemented? ..and missed in FU! 05/30/23, ik Diuresis (Acute) actively diuresing, good results with q 2-3 days lasix (May 2023). Hx exacerbated CHF in Fall 2022 (AMA 2' intolerance diuretics, unable to get to bathroom; poor sleep 2' noise + uncomfortable bed)((Rx if HOSPTLZATN needed .. ik, 04/2023)) Pitting edema (Chronic) improved with diuretics (mar-apr 2023) .. cont q2 days.. [ ] cardio ww [facility] [place] review/eval for ortho surgery Low vitamin D level (Acute) Very low, 7.9! Essential hypertension (Chronic 01/31/13) CKD (chronic kidney disease) stage 3, GFR 30-59 ml/min (Chronic) History of kidney injury (Acute) GLENYS 2' furosemide, 04/17/23, but needed for HF/Edema.. Seeing Nephrology (quarterly) Decreased dorsalis pedis pulse (Acute) per Pod, 01/13/23 (2/4) Absence of posterior tibial pulse (Acute) per Pod, 01/13/23 Coronary artery disease (Chronic) 3-vessel (LAD, LCX, RCA) Acute exacerbation of congestive heart failure (Acute) ED --> Hospitalized for diuresis, but no mosqueda & pt unable to sleep (left AMA) Cardiomegaly (Acute) CXR; [place] [facility]LVEF 53%, +LVH (mild), no significant valvular disease; stable compared with 2017 study Hx of iron deficiency anemia (Acute) improved with iron infusion, but did not feel better (possible iron infusions exacerb HF? ~ Mar--Apr 2023)(doubtful based on no IVF, but possible) Fatigue (Acute) Worsened per pt, affecting ADL .. not just de-conditioning? Osteoarthritis of right knee (Acute) DEPO MEDROL 08/14/22 Diabetes mellitus with neuropathy (Chronic) Reduced monofilament 06/24/2019 Goal A1C 7.5% or less Uncontrolled diabetes mellitus (Acute) Ortho Surgery OK < 8 (Dr. Ceja).. 10/2023 .. Goal </=7.5% Current use of insulin (Chronic) Cervical disc disorder with myelopathy (Acute) right arm Overactive bladder (Chronic) Myrbetriq RE-started, 03/2023.. rptd improved @ 04/10/23 ov, ik .. Oxybutynin, discontinued 06/24/19 in favor of optimizing DMT2 management Ataxia (Acute) Asymmetrical sensorineural hearing loss (Acute) Cognitive impairment (Acute) Forgetting, but using notes/print-outs .. ex(?)- helps .. Nail dystrophy (Acute) Onychomycosis (Acute) Tinea pedis (Acute) Blisters of multiple sites (Acute ~01/13/23) 01/13/23 [facility] note- Dr. Barker: Seropurulent Blisters, B/L legs.HE Metatarsalgia of left foot (Acute) Pain of right great toe (Acute) Medical History HTN (hypertension) Diabetes mellitus (HFpEF) heart failure with preserved ejection fraction Osteoarthritis of both knees CHF (congestive heart failure), NYHA class II EF 40% (12/2022), decreased from 2019 .. Clinical Dx ClassII Unsteady gait Dizziness incompletely evaluated 2' pt leaving [facility] AMA.. ACS ruled out 01/08-12/23.. Metoprolol decreased from 25mg BID per [facility], but maybe NOT implemented? ..and missed in FU! 05/30/23, ik Anemia Atrial fibrillation Apixaban 06/22/2019 Hyperlipidemia (08/17/12) Acquired hypothyroidism (10/28/16) High TSH, but WNL T4 (2021) .. re-checking MERRITT (obstructive sleep apnea) Bi-PAP 07/23/19 PAD (peripheral artery disease) Left, per OSVALDO (12/2022) Stopped smoking with greater than 20 pack year history Lung CT Screening, 07/16/20 Epiretinal membrane (~01/2023) right eye Slow heart rate Noted for some time (1/2 dose trialed in 2021 before change in PCP)(chart reviewed, 05/30/23: dizziness incompletely evaluated 2' pt leaving [facility] AMA.. ACS ruled out 01/08-12/23.. Metoprolol decreased from 25mg BID per [facility], but maybe NOT implemented? ..and missed in FU! 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 Chronic and recurrent low back pain L4-[address] scan in 1993, recurrent since then intermittently. Hypomagnesemia (06/22/14) Only 1.0 in the ER today. Pipe smoker Surgical History History of total left knee replacement (12/13/24) History of colonoscopy (~02/2023) with Mac S/P cardiac catheterization (05/31/19) 2019 History of cataract removal with insertion of prosthetic lens (11/23/14) History of umbilical hernia repair Status post appendectomy Status post coronary artery stent placement (09/26/16) One vessel for unstable angina Status post coronary artery bypass with autogenous graft, 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) 2016 Repair of umbilical hernia Fracture, Open Treatment ORIF-LEFT SYNDESMOSIS WITH TWO SCREWS Colonoscopy - IV Sedation Extraction of cataract 11/23/14; DR. GOINS; RIGHT EYE 12/07/14; DR. GOINS; LEFT EYE Appendectomy Family History Father Diabetes Dementia Neoplasm PANCREATIC Social History Smoking/Tobacco Use Status: Former Tobacco Use Quit Date: 01/02/17 Pack-years: 40 Tobacco: How many years used: 40 Quit status: has quit before Smoking risk assessment performed?: Yes Alcohol Intake: former Counseling given: Yes Counseling provided: reduce to 2 or less/day Details: 2-3 oz at a time Drug use: Never Substance use type: does not use Adopted: No Caregiver/Support person: No Foster care: No Household members: none and other Details: Cats Housing: house Number of Children: 3 number of grandchildren: 4 Communication Needs: None Do you need help understanding health information?: Rarely Pets and animals: Yes Pets and animals: cat(s) Do you think of yourself as: straight/heterosexual Current gender identity: male What is your relationship status?: How often do you talk on the phone with friends or family?: three or more times per week How often do you get together with friends or relatives?: twice per week Panel score (0-1 are the most socially isolated patients): 1 What type of physical activity do you participate in: other Details: Tredmill Duration: 45-60 minutes/day Frequency: 5-6 times per week Special isi needs: No Seatbelt use: always Helmet use: Yes Helmet use: always Drive intox 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 local [place] truck driver: No Working smoke detector in home: No Fire extinguisher in home: No Carbon monox detector in home: No Do you feel safe at home: Yes Do you feel safe in your relationship?: Yes Meds Allergies and Home Medications Allergies Allergy/AdvReac Type Severity Reaction Status Date / Time No Known Allergies Allergy Verified 04/29/25 17:02 Home Medications ?Medication ?Instructions ?Recorded ?Confirmed ?Type aspirin 81 mg tablet,delayed 81 mg PO DAILY 06/02/19 04/29/25 History release lancets 28 gauge (FreeStyle #400 ea 02/11/21 04/29/25 Rx Lancets) pen needle, diabetic 32 gauge x #400 ea 03/25/21 04/29/25 Rx /32 (BD Ultra-Fine Amber Pen Needle) flash glucose scanning reader #1 ea 11/17/21 04/29/25 Rx (FreeStyle Bahman 2 Cheraw) blood sugar diagnostic (Blood #400 ea 12/13/21 04/29/25 Rx Glucose Test strips) flash glucose sensor (FreeStyle #2 ea 11/27/22 04/29/25 Rx Bahman 2 Sensor kit) insulin aspart U-100 100 unit/mL See Rx Instructions .Route 05/29/23 04/29/25 Rx (3 mL) subcutaneous pen (Novolog .COMPLEX #90 mL FlexPen U-100 Insulin aspart) apixaban 5 mg tablet (Eliquis) 5 mg PO BID #180 tabs 07/22/23 04/29/25 Rx empagliflozin 25 mg tablet See Rx Instructions .Route 08/04/23 04/12/25 Rx (Jardiance) .COMPLEX #90 tabs rosuvastatin 40 mg tablet See Rx Instructions .Route 09/16/23 04/29/25 Rx .COMPLEX #90 tabs Knee Brace - STABILIZING #1 ea 10/25/23 04/29/25 Rx fenofibrate nanocrystallized 145 145 mg PO DAILY #90 tab-caps 02/24/24 04/29/25 Rx mg tablet (Tricor) semaglutide 1 mg/dose (4 mg/3 mL) 1 mg (0.75 mL) subcut QWEEK #3 mL 04/14/24 04/29/25 Rx subcutaneous pen injector mirabegron 50 mg tablet,extended 50 mg PO DAILY #90 tabs 04/28/24 04/29/25 Rx release 24 hr (Myrbetriq) furosemide 40 mg tablet 40 mg PO DAILY PRN LEG SWELLING 05/03/24 04/29/25 Rx #90 tabs levothyroxine 50 mcg tablet See Rx Instructions .Route 05/03/24 04/29/25 Rx .COMPLEX #90 tabs nitroglycerin 0.4 mg sublingual 0.4 mg sublingual Q5M PRN chest 05/03/24 04/29/25 Rx tablet pain #90 tabs losartan 25 mg tablet See Rx Instructions .Route 07/06/24 04/29/25 Rx .COMPLEX #90 tabs ketoconazole 2 % topical cream 1 applic topical DAILY #120 grams 11/28/24 04/29/25 Rx insulin glargine 100 unit/mL (3 65 unit subcut QPM 12/08/24 04/29/25 History mL) subcutaneous pen (Lantus Solostar U-100 Insulin) acetaminophen 500 mg tablet 1,000 mg (2 x 500 mg) PO Q8H PRN 12/13/24 04/29/25 Rx pain #90 tabs gabapentin 300 mg capsule 300 mg PO QHS #14 caps 12/13/24 04/29/25 Rx pantoprazole 40 mg tablet,delayed 40 mg PO DAILY #14 tabs 12/13/24 04/29/25 Rx release ergocalciferol (vitamin D2) 1,250 1,250 mcg PO .WEEKLY 12/15/24 04/29/25 History mcg (50,000 unit) capsule (Vitamin D2) amlodipine 2.5 mg tablet 2.5 mg PO DAILY 12/21/24 04/29/25 History ezetimibe 10 mg tablet 10 mg PO DAILY 12/21/24 04/29/25 History docusate sodium 100 mg capsule 100 mg PO BID PRN 03/01/25 04/29/25 History (Colace) trazodone 50 mg tablet 50 mg PO QHS 03/01/25 04/29/25 History allopurinol 100 mg tablet 50 mg (1/2 x 100 mg) PO Q2D #15 03/05/25 04/29/25 Rx tabs empagliflozin 25 mg tablet 25 mg PO QAM #30 tabs 03/05/25 04/29/25 Rx (Jardiance) carvedilol 3.125 mg tablet mg 04/30/25 History Exam Narrative Exam Narrative: General: Patient is obese, appears older than stated age, alert and oriented x 3 and in no acute distress. Becomes easily agitated with conversation and does not like answering questions. He is hard of hearing. HEENT: Normocephalic, eyes with pupils equal and reactive to light symmetrically, extraocular movement intact and sclera anicteric. Oropharynx with moist Koza and fair dentition. Neck: Supple without JVD. Back: Patient would not sit up for exam. Lung: Fair aeration and clear to auscultation and percussion with no focalizing rales or rhonchi. Heart: Irregularly irregular rhythm with normal rate. No appreciable murmur or gallop. Abdomen: Obese contour, soft and nontender to palpation with no palpable hepatosplenomegaly. 2000 positive in all quadrants. Genitalia/rectal: Exam deferred. Skin: Normal color, warm and dry. Extremities: Circumferential atrophy with hyperpigmentation of the skin over the legs bilaterally with no open ulcerations. Loss of hair. No clubbing or cyanosis. Fair capillary refill. Neuro: Cranial nerves II through XII gross intact with decreased hearing acuity. No focalizing motor deficits and no tremor. Psych: Agitated affect which is flattened, depressed mood, no abnormal thought processes. Remote and recent memory grossly intact. Results Imaging Imaging Studies: EXAM: XR CHEST 2V PA LATERAL Date of exam: 04/29/2025 CLINICAL HISTORY: chest pain. TECHNIQUE: 2D digital imaging was performed. COMPARISON: CR,XR XR CHEST 2V PA LATERAL from 12/14/2024 FINDINGS: 2 views: Again noted are sternotomy wires and cardiomegaly. The mediastinum is not widened. Lungs are clear with no infiltrates nor pleural effusions. No pulmonary edema. No pneumothorax. IMPRESSION: Cardiomegaly. Sternotomy. No acute pulmonary findings. No significant change compared to 12/14/2024 Date of Exam: 03/02/25 EXAM: Comprehensive 2D, Doppler, and color-flow Echocardiogram Indications: CHF Other Information Study Quality: Poor. Technically limited study due to body habitus, inability to position patient exam done supine bedside. Conclusion Grossly normal left ventricular wall thickness chamber size and systolic function. Ejection fraction is 55% Right ventricle, left and right atria are not well-visualized Within the limits of the study, no significant valvular disease is identified Estimated right ventricular systolic pressure is 29 mmHg There is overall no discernible significant change compared to the study of September 2024 Labs 04/30/25 06:01 04/29/25 17:15 Labs: Laboratory Results - last 24 hr 04/29/25 04/29/25 17:15 18:15 WBC 11.26 H RBC 4.00 L Hgb 12.4 L Hct 38.6 L MCV 97 H MCH 31.0 MCHC 32.1 RDW 12.7 Plt Count 336 MPV 10.5 Immature Gran % 0.5 Neutrophils % 74.9 Lymphocytes % 15.7 Monocytes % 6.5 Eosinophils % 1.9 Basophils % 0.5 Nucleated RBC % 0.0 Absolute Neutrophils 8.43 H Absolute Lymphocytes 1.77 Absolute Monocytes 0.73 Absolute Eosinophils 0.21 Absolute Basophils 0.06 PT 10.2 INR 1.0 APTT 23.6 Sodium 142 Potassium 4.2 Chloride 104 Carbon Dioxide 27.6 Anion Gap 10.4 BUN 31 H Creatinine 1.47 H Est GFR (CKD-EPI 2020) 47.03 Glucose 196 H Calcium 9.6 Magnesium 1.8 Total Bilirubin 0.3 AST 23 ALT 17 Alkaline Phosphatase 72 Troponin I 86 H* 116 H* NT-Pro-B Natriuret Pep 1509 H Total Protein 7.1 Albumin 4.3 Lipase 44 COVID-19 Source Nasopharynx SARS-CoV-2 (PCR) Negative Influenza Type A (PCR) Negative Influenza Type B (PCR) Negative RSV (PCR) Negative Last Vital Signs Temp 37.0 C 04/29/25 16:50 Pulse 64 04/29/25 19:47 Resp 18 04/29/25 19:47 BP 150/67 H 04/29/25 19:47 Pulse Ox 99 04/29/25 19:40 VTE Prohylaxis Risk Level: Moderate/High Risk Contraindications: None and Medical contrainidcation (Chronically on Eliquis missing doses recently) Prophylaxis: Pharmacologic (Heparin infusion with non-STEMI holding Eliquis) and Mechanical Time Spent Time spent with Patient: >75 minutes Time was spent: preparing to see the patient(eg.review tests), obtaining and/or reviewing separately otained hiistory, ordering medications,tests, procedures, referring, communicating with other health workforce investment act career manager, indepentently interpreting results and care coordination
[2025-04-29] MEDS: Isosorbide Mononitrate 30 MG TABCR PO (20:36)
[2025-04-29 20:47] LABS: Troponin I 191 ng/L (<54)
--- NOTE | 2025-04-29 21:29 | W.PCEDHO ---
Registration Status: REG ER Primary Language: Preferred Language: Bulgarian ED Information & Data Chief Complaint Chest Pain 04/29/25 17:32 Triage Note chest pain on and off today, 04/29/25 16:50 x2 nitro, 1.5hr ago. 5/10 pain. ran out of meds that are am meds, so he hasnt taken am meds. ASA 324mg per EMS. pt reports middle of chest pain Medical / Surgical History HTN (hypertension) Diabetes mellitus (HFpEF) heart failure with preserved ejection fraction Osteoarthritis of both knees CHF (congestive heart failure), NYHA class II Unsteady gait Anemia Atrial fibrillation Hyperlipidemia (08/17/12) Acquired hypothyroidism (10/28/16) MERRITT (obstructive sleep apnea) PAD (peripheral artery disease) Stopped smoking with greater than 20 pack year history Epiretinal membrane (~01/2023) Slow heart rate Obesity Tubular adenoma of colon (~02/2023) Abrasion of skin of right lower leg Acute medial meniscus tear of right knee SARS-CoV-2 positive (~04/2021) Left ankle sprain Abnormal nuclear stress test History of nicotine dependence Tendinitis of right shoulder Sensorineural hearing loss, bilateral (02/15/15) Maisonneuve fracture of left fibula (05/07/16) Low back pain Kidney stone Erectile dysfunction of organic origin (08/07/15) Depressive disorder Bursitis of shoulder, right, adhesive (04/06/15) H/O renal calculi Umbilical hernia Chronic and recurrent low back pain Hypomagnesemia (06/22/14) Pipe smoker (Last Reviewed 04/29/25 @ 20:26 by Skyler Coley) History of total left knee replacement (12/13/24) History of colonoscopy (~02/2023) S/P cardiac catheterization (05/31/19) History of cataract removal with insertion of prosthetic lens (11/23/14) History of umbilical hernia repair Status post appendectomy Status post coronary artery stent placement (09/26/16) Status post coronary artery bypass with autogenous graft, 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) Repair of umbilical hernia Fracture, Open Treatment Colonoscopy - IV Sedation Extraction of cataract Appendectomy Most Recent Vital Signs Temperature 37.0 C 04/29/25 16:50 Pulse 67 04/29/25 20:53 Pulse 61 04/29/25 20:53 Respiratory Rate 18 04/29/25 20:53 Respiratory Effort Normal 04/29/25 18:35 Respiratory Depth Normal 04/29/25 18:35 Respiratory Pattern Normal 04/29/25 18:35 Blood Pressure 110/34 L 04/29/25 20:53 Blood Pressure Mean 62 04/29/25 20:53 Pulse Oximetry 100 04/29/25 20:53 Pain Level 5 04/29/25 16:50 Allergies No Known Allergies Allergy (Verified 04/29/25 17:02) Active Medications Generic Name Dose Route Start Last Admin Trade Name Neli PRN Reason Stop Dose Admin Heparin Sodium/Sodium Chloride 25,000 unit in 250 mls @ 10 mls/hr 04/29/25 19:15 04/29/25 19:40 IVINF 1,000 units/hr INFUSION EZE 10 mls/hr Protocol Administration 1,000 UNITS/HR IV IV Catheter Type [Right Saline Lock Antecubital] IV Catheter Type [Left Wrist] Peripheral IV IV Catheter Gauge [Right 20 Antecubital] IV Catheter Gauge [Left Wrist] 18 Diagnostics 04/29/25 04/29/25 04/29/25 Range/Units 20:10 18:15 17:15 WBC (4.4-10.8) 10^3/uL RBC (4.36-5.78) 10^6/uL Hgb (13.5-17.5) g/dL Hct (40.0-50.0) % MCV (80-95) fL MCH (27.0-33.0) pg MCHC (32.0-36.0) % RDW (11.8-14.1) % Plt Count (130-400) 10^3/uL MPV (8.0-11.0) fL Immature Gran % % Neutrophils % % Lymphocytes % % Monocytes % % Eosinophils % % Basophils % % Nucleated RBC % (0.0-0.3) % Absolute Neutrophils (1.2-6.7) 10^3/uL Absolute Lymphocytes (1.2-3.4) 10^3/uL Absolute Monocytes (0.1-0.8) 10^3/uL Absolute Eosinophils (0.0-0.7) 10^3/uL Absolute Basophils (0.0-0.2) 10^3/uL PT (9.1-11.1) sec INR (0.9-1.1) APTT (20.6-30.2) sec Sodium (136-145) mmol/L Potassium (3.5-5.1) mmol/L Chloride (98-107) mmol/L Carbon Dioxide (20.0-31.0) mmol/L Anion Gap (3-11) mmol/L BUN (9-23) mg/dL Creatinine (0.73-1.18) mg/dL Est GFR (CKD-EPI 2020) (mL/min/1.73m2) Glucose (74-106) mg/dL Calcium (8.3-10.6) mg/dL Magnesium Pending (1.6-2.6) mg/dL Total Bilirubin 0.3 (0.2-1.2) mg/dL AST 23 (<34) U/L ALT 17 (10-49) U/L Alkaline Phosphatase 72 (46-116) U/L Troponin I 191 H* 116 H* 86 H* (<54) ng/L NT-Pro-B Natriuret Pep 1509 H (<300) pg/mL Total Protein 7.1 (5.7-8.2) g/dL Albumin 4.3 (3.2-5.0) g/dL Lipase 44 (<53) U/L COVID-19 Source Nasopharynx SARS-CoV-2 (PCR) Negative (Negative) Influenza Type A (PCR) Negative (Negative) Influenza Type B (PCR) Negative (Negative) RSV (PCR) Negative (Negative) 04/29/25 Range/Units 17:15 WBC 11.26 H (4.4-10.8) 10^3/uL RBC 4.00 L (4.36-5.78) 10^6/uL Hgb 12.4 L (13.5-17.5) g/dL Hct 38.6 L (40.0-50.0) % MCV 97 H (80-95) fL MCH 31.0 (27.0-33.0) pg MCHC 32.1 (32.0-36.0) % RDW 12.7 (11.8-14.1) % Plt Count 336 (130-400) 10^3/uL MPV 10.5 (8.0-11.0) fL Immature Gran % 0.5 % Neutrophils % 74.9 % Lymphocytes % 15.7 % Monocytes % 6.5 % Eosinophils % 1.9 % Basophils % 0.5 % Nucleated RBC % 0.0 (0.0-0.3) % Absolute Neutrophils 8.43 H (1.2-6.7) 10^3/uL Absolute Lymphocytes 1.77 (1.2-3.4) 10^3/uL Absolute Monocytes 0.73 (0.1-0.8) 10^3/uL Absolute Eosinophils 0.21 (0.0-0.7) 10^3/uL Absolute Basophils 0.06 (0.0-0.2) 10^3/uL PT 10.2 (9.1-11.1) sec INR 1.0 (0.9-1.1) APTT 23.6 (20.6-30.2) sec Sodium 142 (136-145) mmol/L Potassium 4.2 (3.5-5.1) mmol/L Chloride 104 (98-107) mmol/L Carbon Dioxide 27.6 (20.0-31.0) mmol/L Anion Gap 10.4 (3-11) mmol/L BUN 31 H (9-23) mg/dL Creatinine 1.47 H (0.73-1.18) mg/dL Est GFR (CKD-EPI 2020) 47.03 (mL/min/1.73m2) Glucose 196 H (74-106) mg/dL Calcium 9.6 (8.3-10.6) mg/dL Magnesium 1.8 (1.6-2.6) mg/dL Total Bilirubin (0.2-1.2) mg/dL AST (<34) U/L ALT (10-49) U/L Alkaline Phosphatase (46-116) U/L Troponin I (<54) ng/L NT-Pro-B Natriuret Pep (<300) pg/mL Total Protein (5.7-8.2) g/dL Albumin (3.2-5.0) g/dL Lipase (<53) U/L COVID-19 Source SARS-CoV-2 (PCR) (Negative) Influenza Type A (PCR) (Negative) Influenza Type B (PCR) (Negative) RSV (PCR) (Negative) Intake and Output - 24 Hour Total 04/29/25 16:42 thru 04/29/25 19:54 Intake Total 10.325 Balance 10.325 Weight 127.006 kg Intake: IV 10.325 Falls Risk Assessment History of Falls No History 04/29/25 18:35 Contributing Factors No Factors 04/29/25 18:35 Ambulatory Aids Independent 04/29/25 18:35 Tubes/Lines None 04/29/25 18:35 Gait Evaluation No gait disturbance 04/29/25 18:35 Cognition No cognitive impairment 04/29/25 18:35 Fall Total Score 0 04/29/25 18:35 Level of Risk Standard/Low Risk 04/29/25 18:35 Problems (Last Reviewed 04/29/25 @ 20:26 by Skyler Coley) Non-ST elevation PA (NSTEMI) (Acute) Attestation Statement: By documenting the first initial, last name, and credentials of the reporting nurse below, both parties acknowledge that all relevant information regarding the patient handoff has been communicated, and that all questions have been addressed to ensure continuity and safety of care. Additional Patient Information/Comments: Report Received From: Mamta YAÑEZ
[2025-04-29 23:34] LABS: TSH 3.12 uIU/mL (0.55-4.78)
[2025-04-29] MEDS: Gabapentin 300 MG CAP PO (23:35)
[2025-04-29] MEDS: traZODone 50 MG TAB PO (23:35)
[2025-04-29] MEDS: Normal Saline Flush 10 ML SYR IVP ×2 (23:35→23:46)
[2025-04-29] MEDS: Insulin Glargine 300 UNITS/3 ML PEN 65 UNITS SC (23:44)
[2025-04-29 23:50] LABS: Troponin I 177 ng/L (<54)
[2025-04-30] VITALS (86 sets, daily range): BP systolic 100–152; BP diastolic 46–75; PULSE 40–99; RESP 12–22; TEMP 36.2–36.8; O2SAT 78–100
[2025-04-30] MEDS: Acetaminophen 325 MG TAB 650 MG PO ×3 (01:04→20:39)
[2025-04-30] MEDS: MORPHine 2 MG/ML SYR 4 MG IVP (02:06)
[2025-04-30 02:10] LABS: PTT Activated 38.7 sec (20.6-30.2)
[2025-04-30] MEDS: Levothyroxine 50 MCG TAB PO (05:25)
[2025-04-30 06:37] LABS: HCT 34.8 % (40.0-50.0); HGB 11.3 g/dL (13.5-17.5); MCH 31.5 pg (27.0-33.0); MCHC 32.5 % (32.0-36.0); MCV 97 fL (80-95); MPV 10.8 fL (8.0-11.0); Platelet Count 318 10^3/uL (130-400); RBC 3.59 10^6/uL (4.36-5.78); RDW 12.9 % (11.8-14.1); RDW-SD 46.4 fL; WBC 7.91 10^3/uL (4.4-10.8)
[2025-04-30 07:06] LABS: ALT 14 U/L (10-49); AST 19 U/L (<34); Albumin 3.7 g/dL (3.2-5.0); Alkaline Phosphatase 52 U/L (46-116); Anion Gap 9.4 mmol/L (3-11); BUN 30 mg/dL (9-23); Bilirubin, Total 0.3 mg/dL (0.2-1.2); CO2 27.6 mmol/L (20.0-31.0); Calcium 9.2 mg/dL (8.3-10.6); Chloride 107 mmol/L (98-107); Glucose 113 mg/dL (74-106); Potassium 4.1 mmol/L (3.5-5.1); Sodium 144 mmol/L (136-145); Total Protein 6.2 g/dL (5.7-8.2)
[2025-04-30 07:07] LABS: Magnesium 1.9 mg/dL (1.6-2.6)
--- NOTE | 2025-04-30 07:30 | RT.EKG_ITS ---
APPROVED REPORT Exam: Resting ECG Reason for Exam: rhythm change Patient Location: I HR:52 bpm ECG Measurements Heart Rate 52 AXIS FL [id number] P [id number] QRSd 163 QRS -64 QT 494 T -19 QTc 460 Conclusion Atrial fibrillation...V-rate 45- 54, irreg A-activity RBBB and LAFB...QRSd >120mS, axis(-40,240)
[2025-04-30 07:33] LABS: Troponin I 184 ng/L (<54)
--- NOTE | 2025-04-30 08:00 | W.PM.PROGNOT ---
Date of Service Date of service: 04/30/25 Time of Service: 08:00 Assessment and Plan Assessment and plan (1) Non-ST elevation NM (NSTEMI): Start date: 04/29/25 Status: Acute Assessment and plan: History of CABG, longstanding angina usually responsive to home nitroglycerin Patient has been taking one or more doses of nitroglycerin per day Presenting with chest pain at rest, initially with elevated troponin [facility] advising heparin gtt for 48 hours, isosorbide dinitrate and echocardiogram Recent cardiac cath showed patent grafts Patient not able to keep up with correspondence regarding his insurance coverage, has missed medications Patient's HR low after admission, holding imdur for HR < 50 or systolic < 100 Dosing imdur 10 PO TID for tolerability with mild bradycardia (2) (HFpEF) heart failure with preserved ejection fraction: Assessment and plan: Elevated BNP No edema at this time, hold his home furosemide which he takes PRN (3) Atrial fibrillation: Assessment and plan: Anticoagulated on apixaban, which he has not been able to fill for 2-3 days Currently on heparin drip, need to restart DOAC prior to discharge (4) Type 2 diabetes mellitus: Status: Chronic Assessment and plan: A1C 7.3 in November, home regimen includes basal 65u QAM with correctional, and semaglutide Continue scheduled basal at reduced dose, SSI (5) CKD (chronic kidney disease) stage 3, GFR 30-59 ml/min: Status: Chronic Assessment and plan: Monitor while hospitalized. This appears stable. (6) Hyperlipidemia: Assessment and plan: Continue statin therapy. (7) Acquired hypothyroidism: Assessment and plan: Continue outpatient medical therapy. TSH was normal. (8) MERRITT (obstructive sleep apnea): Assessment and plan: Patient does have a home CPAP and did not bring in his machine. Offer CPAP at night and encouraged to bring in home machine over the next 2 days. Subjective Subjective Interval history since last seen: Mr. Still is awake and alert, reporting that his chest pain is better after getting imdur. He is very worried about not being able to get insurance to cover his apixaban. Exam Narrative Exam Narrative: General: This is a pleasant, obese man in no distress HEENT: Normocephalic, atraumatic CV: irregular rate and irregular rhythm Resp: CTAB Abd: soft, NTND MSK: voluntary motion x4, distal BLE with stigmata of venous stasis Neuro: awake, alert, no focal deficits Objective Last Vital Signs Temp 36.6 C 05/01/25 08:30 Pulse 55 L 05/01/25 14:01 Resp 18 05/01/25 12:03 BP 123/50 L 05/01/25 14:01 Pulse Ox 97 05/01/25 14:01 Laboratory Results - last 24 hr 04/30/25 04/30/25 05/01/25 16:07 22:22 05:52 WBC 7.46 RBC 3.51 L Hgb 11.1 L Hct 33.9 L MCV 97 H MCH 31.6 MCHC 32.7 RDW 13.2 Plt Count 306 MPV 10.8 APTT 66.8 H 58.6 H 61.5 H Sodium 141 Potassium 4.1 Chloride 106 Carbon Dioxide 26.3 Anion Gap 8.7 BUN 33 H Creatinine 1.44 H Est GFR (CKD-EPI 2020) 48.17 Glucose 118 H Calcium 9.2 Magnesium 1.8 Total Bilirubin 0.3 AST 23 ALT 15 Alkaline Phosphatase 49 Total Protein 6.0 Albumin 3.6 05/01/25 12:05 WBC RBC Hgb Hct MCV MCH MCHC RDW Plt Count MPV APTT 61.4 H Sodium Potassium Chloride Carbon Dioxide Anion Gap BUN Creatinine Est GFR (CKD-EPI 2020) Glucose Calcium Magnesium Total Bilirubin AST ALT Alkaline Phosphatase Total Protein Albumin VTE Prohylaxis Risk Level: Moderate/High Risk Contraindications: None and Medical contrainidcation (Chronically on Eliquis missing doses recently) Prophylaxis: Pharmacologic (Heparin infusion with non-STEMI holding Eliquis) and Mechanical Time Spent with Patient Time Spent with Patient: 35-49 minutes Time was spent: preparing to see the patient(eg.review tests), obtaining and/or reviewing separately otained hiistory, ordering medications,tests, procedures, referring, communicating with other health direct care specialist, indepentently interpreting results, counseling the patient and care coordination
--- NOTE | 2025-04-30 08:16 | PDOC.CMIN ---
Date of service: 04/30/25 Time of Service: 08:16 Care Management Initial Assmt Initial Assessment Reason for Hospitalization: Non-ST elevation FL (NSTEMI) Functional Status/Living Situation Patient Presentation: Minh was awake and lying in bed awaiting lunch when CM met with him. He is being closely monitored and medically managed in the ICU s/p NSTEMI. [facility] has been consulted, and recommendation for management have been provided. PT consult is needed to support discharge planning considerations. Minh's primary concern for CM at this time is the cost of his Eliquis, which he reports is >$500 and is not affordable. He is not eligible for the cost savings programs offered by the blasting helper due to his existing RX coverage (, medicare.) He has VA insurance but is not connected, and declines utilizing the VA for meds or medical needs. CM connected with [facility] at his PCP office, who recommended that the patient contact [facility] at [phone] to complete a 401B application, which would allow him to use their community pharmacy and reduce his cost to $50. CM reviewed this option with him, but he declined, expressing frustration with the ongoing process and wants to try an alternative med. Following this discussion Dr. Bowman changed his prescription to Xarelto which is $43 for a 30 day supply. CM communicated this medication change to the CCC at his PCP office. CM will follow. 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) Instrumental Activities of Daily Living (ADLs): Independent Medications Medication Management: Issues/Barriers with Cost (Unable to get RX for apixaban due to cost, > $500.) Physical Functioning/Mobility Assistive Device: Cane Advance Directives Advance Directives: Do you have an Advance Directive: N 12/10/22, 09:22 AD On File at [facility]: N 12/10/22, 09:22 Date Asked 04/29/25 04/29/25, 16:56 AD Date Reviewed COLST On File at [facility] COLST Date Scanned Code Status Resuscitation Status Full Code Insurance Coverage/Financial Issues Insurance: Medicare Part A & B - [id number] 4 Life MCR Supplement - [id number] Care Team Visit Care Team Role Provider Type Caleb Bowman MD MD [facility] STAFF PHYSICIAN Richard Jeffers Primary Care Provider NON-[facility] STAFF PHYSICIAN Brittni Garcia, RU, [facility] [place][NOTE 2]ES Other Providers ULTIMATE HOOPS TRAINER Carlos Savage RDN Other Providers ULTIMATE HOOPS TRAINER Gaurav Banks MD Emergency Provider [facility] STAFF PHYSICIAN Skyler Coley Admit Provider NON-[facility] STAFF PHYSICIAN Attending Provider Discharge Potential Discharge Needs: Consult, PT Evaluation and PCP F/U Appt Anticipated Barriers to Discharge: Medical Status Patient/Family Education Needs: Review discharge instructions, discuss Ask Me Three Transportation: RCT Plan: PT consult is pending, recommendations to follow. Anticipate, Minh will discharge home with PT (outpt vs New HH) vs. SNF for STR. New RX for Xaralto was sent to [facility], $43 copay. Will need community follow up and RCT. CM will follow. Social Determinants of Health Screening Social Determinants of health last assessed in clinic: 05/01/25 Will the Patient Participate in the Screening?: Yes Do you worry about having a steady place to live?: no Problems where you live: no known problems In the past 12 months, have you had to go without electric, gas, oil or water in your home?: no 1. Within the past 12 months, we worried whether our food would run out before we got money to buy more.: Never true 2. Within the past 12 months, the food we bought just didn't last and we didn't have money to get more.: Never true Has lack of transportation kept you from medical appointments or from doing things needed for daily living?: no Has anyone in your life made you feel unsafe or unsupported?: no How hard is it for you to pay for the very basics like food, housing, medical care, and heating? Would you say it is:: Not hard at all Do you want help finding or keeping work or a job?: I do not need or want help If for any reason you need help with day-to-day activities such as bathing, preparing meals, shopping, managing finances, etc., do you get the help you need?: I don?t need any help How often do you feel lonely or isolated from those around you?: Never Do you speak a language other than Jamaican at home?: No Does the patient want assistance with any of the above?: No PFSH All Active Problems (Updated 04/29/25 @ 21:38 by Skyler Coley) Type 2 diabetes mellitus (Chronic) Non-ST elevation FL (NSTEMI) (Acute) Low blood sugar in diabetes (Acute) Arthritis of left midfoot (Acute) Pes planus of left foot (Acute) Gout (Acute) Acute non-ST elevation myocardial infarction (NSTEMI) (Acute) Edema (Acute) Venous insufficiency (Acute) Pain in left foot (Acute) Plantar fasciitis of left foot (Acute) Gout due to renal impairment involving toe of right foot (Acute) Hypercalcemia (Acute) Arthritis of right knee (Acute) 40MG DEPO MEDROL 08/08/24 Peripheral sensory neuropathy (Acute) Hammer toes, bilateral (Acute) Sensation of knee instability (Acute) Unstable right knee (Acute) Cardiomyopathy (Acute) Toenail deformity (Acute) Coordination of complex care (Acute) Chart Review ID several Dx/Tx needing re-assessment or Hx requiring re-evaluation ([facility] apr?)(Bi-Pap ordered 12/2023, rec'd?)(Fe Infusion)(Vit D started? re-checked?)(++) Bradycardia (Acute) Noted for some time (1/2 dose trialed in 2021 before change in PCP)(chart reviewed, 05/30/23: dizziness incompletely evaluated 2' pt leaving [facility] AMA.. ACS ruled out 01/08-12/23.. Metoprolol decreased from 25mg BID per [facility], but maybe NOT implemented? ..and missed in FU! 05/30/23, ik Diuresis (Acute) actively diuresing, good results with q 2-3 days lasix (May 2023). Hx exacerbated CHF in Fall 2022 (AMA 2' intolerance diuretics, unable to get to bathroom; poor sleep 2' noise + uncomfortable bed)((Rx if HOSPTLZATN needed .. ik, 04/2023)) Pitting edema (Chronic) improved with diuretics (mar-apr 2023) .. cont q2 days.. [ ] cardio [facility] review/eval for ortho surgery Low vitamin D level (Acute) Very low, 7.9! Essential hypertension (Chronic 01/31/13) CKD (chronic kidney disease) stage 3, GFR 30-59 ml/min (Chronic) History of kidney injury (Acute) GLENYS 2' furosemide, 04/17/23, but needed for HF/Edema.. Seeing Nephrology (quarterly) Decreased dorsalis pedis pulse (Acute) per Pod, 01/13/23 (2/4) Absence of posterior tibial pulse (Acute) per Pod, 01/13/23 Coronary artery disease (Chronic) 3-vessel (LAD, LCX, RCA) Acute exacerbation of congestive heart failure (Acute) ED --> Hospitalized for diuresis, but no mosqueda & pt unable to sleep (left AMA) Cardiomegaly (Acute) CXR; ECHO 05/[address] [facility]--LVEF 53%, +LVH (mild), no significant valvular disease; stable compared with 2017 study Hx of iron deficiency anemia (Acute) improved with iron infusion, but did not feel better (possible iron infusions exacerb HF? ~ Mar--Apr 2023)(doubtful based on no IVF, but possible) Fatigue (Acute) Worsened per pt, affecting ADL .. not just de-conditioning? Osteoarthritis of right knee (Acute) DEPO MEDROL 08/14/22 Diabetes mellitus with neuropathy (Chronic) Reduced monofilament 06/24/2019 Goal A1C 7.5% or less Uncontrolled diabetes mellitus (Acute) Ortho Surgery OK < 8 (Dr. Ceja).. 10/2023 .. Goal </=7.5% Current use of insulin (Chronic) Cervical disc disorder with myelopathy (Acute) right arm Overactive bladder (Chronic) Myrbetriq RE-started, 03/2023.. rptd improved @ 04/10/23 ov, ik .. Oxybutynin, discontinued 06/24/19 in favor of optimizing DMT2 management Ataxia (Acute) Asymmetrical sensorineural hearing loss (Acute) Cognitive impairment (Acute) Forgetting, but using notes/print-outs .. ex(?)- helps .. Nail dystrophy (Acute) Onychomycosis (Acute) Tinea pedis (Acute) Blisters of multiple sites (Acute ~01/13/23) 01/13/23 [facility] note- Dr. Barker: Seropurulent Blisters, B/L legs.HE Metatarsalgia of left foot (Acute) Pain of right great toe (Acute) Medical History HTN (hypertension) Diabetes mellitus (HFpEF) heart failure with preserved ejection fraction Osteoarthritis of both knees CHF (congestive heart failure), NYHA class II EF 40% (12/2022), decreased from 2019 .. Clinical Dx ClassII Unsteady gait Dizziness incompletely evaluated 2' pt leaving [facility] AMA.. ACS ruled out 01/08-12/23.. Metoprolol decreased from 25mg BID per [facility], but maybe NOT implemented? ..and missed in FU! 05/30/23, ik Anemia Atrial fibrillation Apixaban 06/22/2019 Hyperlipidemia (08/17/12) Acquired hypothyroidism (10/28/16) High TSH, but WNL T4 (2021) .. re-checking MERRITT (obstructive sleep apnea) Bi-PAP 07/23/19 PAD (peripheral artery disease) Left, per [facility] (12/2022) Stopped smoking with greater than 20 pack year history Lung CT Screening, 07/16/20 Epiretinal membrane (~01/2023) right eye Slow heart rate Noted for some time (1/2 dose trialed in 2021 before change in PCP)(chart reviewed, 05/30/23: dizziness incompletely evaluated 2' pt leaving [facility] AMA.. ACS ruled out 01/08-12/23.. Metoprolol decreased from 25mg BID per [facility], but maybe NOT implemented? ..and missed in FU! 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 Chronic and recurrent low back pain L4-[address] scan in 1993, recurrent since then intermittently. Hypomagnesemia (06/22/14) Only 1.0 in the ER today. Pipe smoker Surgical History History of total left knee replacement (12/13/24) History of colonoscopy (~02/2023) with Mac S/P cardiac catheterization (05/31/19) 2020 History of cataract removal with insertion of prosthetic lens (11/23/14) History of umbilical hernia repair Status post appendectomy Status post coronary artery stent placement (09/26/16) One vessel for unstable angina Status post coronary artery bypass with autogenous graft, 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) 2017 Repair of umbilical hernia Fracture, Open Treatment ORIF-LEFT SYNDESMOSIS WITH TWO SCREWS Colonoscopy - IV Sedation Extraction of cataract 11/23/14; DR. GOINS; RIGHT EYE 12/07/14; DR. GOINS; LEFT EYE Appendectomy Family History Father Diabetes Dementia Neoplasm PANCREATIC Social History Smoking/Tobacco Use Status: Former Tobacco Use Quit Date: 01/02/17 Pack-years: 40 Tobacco: How many years used: 40 Quit status: has quit before Smoking risk assessment performed?: Yes Alcohol Intake: former Counseling given: Yes Counseling provided: reduce to 2 or less/day Details: 2-3 oz at a time Drug use: Never Substance use type: does not use Adopted: No Caregiver/Support person: No Foster care: No Household members: none and other Details: Cats Housing: house Number of Children: 3 number of grandchildren: 4 Communication Needs: None Do you need help understanding health information?: Rarely Pets and animals: Yes Pets and animals: cat(s) Do you think of yourself as: straight/heterosexual Current gender identity: male What is your relationship status?: How often do you talk on the phone with friends or family?: three or more times per week How often do you get together with friends or relatives?: twice per week Panel score (0-1 are the most socially isolated patients): 1 What type of physical activity do you participate in: other Details: Tredmill Duration: 45-60 minutes/day Frequency: 5-6 times per week Special isi needs: No Seatbelt use: always Helmet use: Yes Helmet use: always Drive intox 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 driver guide: No Working smoke detector in home: No Fire extinguisher in home: No Carbon monox detector in home: No Do you feel safe at home: Yes Do you feel safe in your relationship?: Yes
[2025-04-30] MEDS: Pantoprazole 40 MG TABCR PO (08:33)
[2025-04-30] MEDS: Mirabegron 50 MG TABCR PO (08:34)
[2025-04-30] MEDS: Losartan 25 MG TAB PO (08:34)
[2025-04-30] MEDS: Aspirin E.C. 81 MG TABEC PO (08:34)
[2025-04-30] MEDS: amLODIPine 5 MG TAB PO (08:34)
[2025-04-30] MEDS: Normal Saline Flush 10 ML SYR IVP ×2 (08:35→20:40)
[2025-04-30 09:30] LABS: PTT Activated 45.0 sec (20.6-30.2)
[2025-04-30] MEDS: Ezetimibe 10 MG TAB PO (09:36)
[2025-04-30] MEDS: Allopurinol 100 MG TAB 50 MG PO (09:37)
[2025-04-30] MEDS: Heparin in 0.45% NaCl 25,000 UNIT/250 ML BAG 15 UNIT IVINF (09:56)
[2025-04-30 12:39] LABS: Troponin I 115 ng/L (<54)
[2025-04-30] MEDS: nitroGLYcerin 0.4 MG TAB SL (16:10)
[2025-04-30] MEDS: Mylanta Suspension 30 ML CUP PO (16:11)
[2025-04-30 16:35] LABS: PTT Activated 66.8 sec (20.6-30.2)
[2025-04-30] MEDS: Insulin Aspart 300 UNITS/3 ML PEN SC (17:25)
[2025-04-30] MEDS: Rosuvastatin 20 MG TAB 40 MG PO (20:39)
[2025-04-30] MEDS: Gabapentin 300 MG CAP PO (20:39)
[2025-04-30] MEDS: traZODone 50 MG TAB PO (20:39)
[2025-04-30] MEDS: Insulin Glargine 300 UNITS/3 ML PEN 45 UNITS SC (20:45)
[2025-04-30 23:03] LABS: PTT Activated 58.6 sec (20.6-30.2)
[2025-05-01] VITALS (18 sets, daily range): BP systolic 94–134; BP diastolic 33–72; PULSE 37–75; RESP 13–21; TEMP 36.6; O2SAT 93–98
[2025-05-01] MEDS: Heparin in 0.45% NaCl 25,000 UNIT/250 ML BAG 15 UNIT IVINF ×2 (02:29→19:15)
[2025-05-01 06:36] LABS: PTT Activated 61.5 sec (20.6-30.2)
[2025-05-01 06:43] LABS: ALT 15 U/L (10-49); AST 23 U/L (<34); Albumin 3.6 g/dL (3.2-5.0); Alkaline Phosphatase 49 U/L (46-116); Anion Gap 8.7 mmol/L (3-11); BUN 33 mg/dL (9-23); Bilirubin, Total 0.3 mg/dL (0.2-1.2); CO2 26.3 mmol/L (20.0-31.0); Calcium 9.2 mg/dL (8.3-10.6); Chloride 106 mmol/L (98-107); Glucose 118 mg/dL (74-106); Magnesium 1.8 mg/dL (1.6-2.6); Potassium 4.1 mmol/L (3.5-5.1); Sodium 141 mmol/L (136-145); Total Protein 6.0 g/dL (5.7-8.2)
[2025-05-01] MEDS: Levothyroxine 50 MCG TAB PO (06:44)
[2025-05-01 06:52] LABS: HCT 33.9 % (40.0-50.0); HGB 11.1 g/dL (13.5-17.5); MCH 31.6 pg (27.0-33.0); MCHC 32.7 % (32.0-36.0); MCV 97 fL (80-95); MPV 10.8 fL (8.0-11.0); Platelet Count 306 10^3/uL (130-400); RBC 3.51 10^6/uL (4.36-5.78); RDW 13.2 % (11.8-14.1); RDW-SD 46.9 fL; WBC 7.46 10^3/uL (4.4-10.8)
[2025-05-01] MEDS: Normal Saline Flush 10 ML SYR IVP ×2 (08:40→19:43)
[2025-05-01] MEDS: amLODIPine 5 MG TAB PO (08:40)
[2025-05-01] MEDS: Pantoprazole 40 MG TABCR PO (08:40)
[2025-05-01] MEDS: Losartan 25 MG TAB PO (08:40)
[2025-05-01] MEDS: Ezetimibe 10 MG TAB PO (08:40)
[2025-05-01] MEDS: Mirabegron 50 MG TABCR PO (08:40)
[2025-05-01] MEDS: Aspirin E.C. 81 MG TABEC PO (08:41)
--- NOTE | 2025-05-01 11:38 | PHA.REVIEW2 ---
Pharmacy Admission Review Admission Clinical Review Admission Pharmacy Review: Non-ST elevation MA (NSTEMI) (Acute) No Known Allergies Allergy (Verified 04/29/25 17:02) Resuscitation Status Full Code Height 5 ft 10 in Weight 128 kg Comments Comments/Follow Ups: Follow up - home med questions Pharmacy Admission Review Renal Dosing Renal Dosing: BUN 33 mg/dL (9-23) H 05/01/25 05:52 Creatinine 1.44 mg/dL (0.73-1.18) H 05/01/25 05:52 Medications needing adjustments: Reviewed (CrCl 62 mL/min, SCr increased from 1.36) List of meds needing interventions: Current medications are okay Anticoagulation Anticoagulation: Hgb 11.1 g/dL (13.5-17.5) L 05/01/25 05:52 Hct 33.9 % (40.0-50.0) L 05/01/25 05:52 Plt Count 306 10^3/uL (130-400) 05/01/25 05:52 INR 1.0 (0.9-1.1) 04/29/25 17:15 Creatinine 1.44 mg/dL (0.73-1.18) H 05/01/25 05:52 Therapeutic Anticoagulation: Reviewed Medications: Heparin (infusion @15ml/hr) Relevant Labs Relevant Labs: Sodium 141 mmol/L (136-145) 05/01/25 05:52 Potassium 4.1 mmol/L (3.5-5.1) 05/01/25 05:52 Chloride 106 mmol/L (98-107) 05/01/25 05:52 Magnesium 1.8 mg/dL (1.6-2.6) 05/01/25 05:52 Electrolytes, C-Reactive P, ESR: Reviewed DM Control DM Control: Glucose 118 mg/dL (74-106) H 05/01/25 05:52 Finger Stick Blood Glucose 128 1133 Finger Stick Blood Glucose 128 1133 Finger Stick Blood Glucose 114 0732 Finger Stick Blood Glucose 114 0732 DM Control: Reviewed Insulin Dosing, Diabetic Medication: Has order for SS insulin and glargine 45 units at bedtime Cardiac Review Cardiac Review: Troponin I 115 ng/L (<54) H* 04/30/25 12:05 NT-Pro-B Natriuret Pep 1509 pg/mL (<300) H 04/29/25 17:15 Blood Pressure 130/53 0844 Blood Pressure 134/72 0601 Blood Pressure 98/50 0532 Blood Pressure 94/46 0501 BP, HR, EF%: Reviewed (HR 51 (has ranged in high 40s to low 50s this morning)) List meds needing interventions: Has orders for amlodipine 5mg daily and losartan 25mg daily QTc Review QTc: Reviewed (452 from 04/29/25) IV to PO Switch IV Medications: Reviewed (heparin infusion) Home Meds Home Med List reviewed: Intervened Relevent Home Meds Not ordered & why?: furosemide (on hold per H+P), Eliquis (on hold per H+P), carvedilol (low HR), Jardiance, vitamin D2 and Ozempic Asked nurse to verify trazodone dose with patient - on home med list as 50mg at bedtime but external fill history shows 150mg at bedtime - waiting to hear back Asked nurse to verify if patient still takes gabapentin at home - last fill 14 day supply on 12/13/24 - waiting to hear back Current Meds Current Medication Order Review: Intervened Comments: Changed pantoprazole timing from 0830 to 0730 per pharmacy protocol Comments Comments/Follow Ups: Follow up - home med questions
[2025-05-01 12:39] LABS: PTT Activated 61.4 sec (20.6-30.2)
[2025-05-01] MEDS: Acetaminophen 325 MG TAB 650 MG PO (14:55)
--- NOTE | 2025-05-01 16:42 | PGE_ITS ---
Date of Service Date of service: 05/01/25 Time of Service: 08:00 Assessment and Plan Assessment and plan (1) Non-ST elevation ME (NSTEMI): Start date: 04/29/25 Status: Acute Assessment and plan: History of CABG, longstanding angina usually responsive to home nitroglycerin Patient has been taking one or more doses of nitroglycerin per day Presenting with chest pain at rest, initially with elevated troponin [facility] advising heparin gtt for 48 hours, isosorbide dinitrate and echocardiogram Recent cardiac cath showed patent grafts Patient not able to keep up with correspondence regarding his insurance coverage, has missed medications Patient's HR low after admission, holding imdur for HR < 50 or systolic < 100 Dosing imdur 10 PO TID for tolerability with mild bradycardia Echo not available May 01, likely able to get study May 02, then reach out to [facility] cardiology (2) (HFpEF) heart failure with preserved ejection fraction: Assessment and plan: Elevated BNP No edema at this time, hold his home furosemide which he takes PRN (3) Atrial fibrillation: Assessment and plan: Anticoagulated on apixaban, which he has not been able to fill for 2-3 days Currently on heparin drip, need to restart DOAC prior to discharge Rose will be able to fill rivaroxaban with copay under $50, so ordered (4) Type 2 diabetes mellitus: Status: Chronic Assessment and plan: A1C 7.3 in November, home regimen includes basal 65u QAM with correctional, and semaglutide Continue scheduled basal at reduced dose, SSI (5) CKD (chronic kidney disease) stage 3, GFR 30-59 ml/min: Status: Chronic Assessment and plan: Monitor while hospitalized. This appears stable. (6) Hyperlipidemia: Assessment and plan: Continue statin therapy. (7) Acquired hypothyroidism: Assessment and plan: Continue outpatient medical therapy. TSH was normal. (8) MERRITT (obstructive sleep apnea): Assessment and plan: Patient does have a home CPAP and did not bring in his machine. Offer CPAP at night and encouraged to bring in home machine over the next 2 days. Subjective Subjective Interval history since last seen: Mr. Still continues to have intermittent chest pressure relieved with imdur. He will be able to get insurance coverage for xarelto, in lieu of eliquis. Exam Narrative Exam Narrative: General: This is a pleasant, obese man in no distress HEENT: Normocephalic, atraumatic CV: irregular rate and irregular rhythm Resp: CTAB Abd: soft, NTND MSK: voluntary motion x4, distal BLE with stigmata of venous stasis Neuro: awake, alert, no focal deficits Objective Last Vital Signs Temp 36.6 C 05/01/25 08:30 Pulse 55 L 05/01/25 14:01 Resp 18 05/01/25 12:03 BP 123/50 L 05/01/25 14:01 Pulse Ox 97 05/01/25 14:01 Laboratory Results - last 24 hr 04/30/25 04/30/25 05/01/25 16:07 22:22 05:52 WBC 7.46 RBC 3.51 L Hgb 11.1 L Hct 33.9 L MCV 97 H MCH 31.6 MCHC 32.7 RDW 13.2 Plt Count 306 MPV 10.8 APTT 66.8 H 58.6 H 61.5 H Sodium 141 Potassium 4.1 Chloride 106 Carbon Dioxide 26.3 Anion Gap 8.7 BUN 33 H Creatinine 1.44 H Est GFR (CKD-EPI 2020) 48.17 Glucose 118 H Calcium 9.2 Magnesium 1.8 Total Bilirubin 0.3 AST 23 ALT 15 Alkaline Phosphatase 49 Total Protein 6.0 Albumin 3.6 05/01/25 12:05 WBC RBC Hgb Hct MCV MCH MCHC RDW Plt Count MPV APTT 61.4 H Sodium Potassium Chloride Carbon Dioxide Anion Gap BUN Creatinine Est GFR (CKD-EPI 2020) Glucose Calcium Magnesium Total Bilirubin AST ALT Alkaline Phosphatase Total Protein Albumin VTE Prohylaxis Risk Level: Moderate/High Risk Contraindications: None and Medical contrainidcation (Chronically on Eliquis missing doses recently) Prophylaxis: Pharmacologic (Heparin infusion with non-STEMI holding Eliquis) and Mechanical Time Spent with Patient Time Spent with Patient: 35-49 minutes Time was spent: preparing to see the patient(eg.review tests), obtaining and/or reviewing separately otained hiistory, ordering medications,tests, procedures, referring, communicating with other health careers counsellor, indepentently interpreting results, counseling the patient and care coordination
[2025-05-01] MEDS: Insulin Aspart 300 UNITS/3 ML PEN SC (17:15)
[2025-05-01] MEDS: traZODone 50 MG TAB PO (19:42)
[2025-05-01] MEDS: Gabapentin 300 MG CAP PO (19:42)
[2025-05-01] MEDS: Rosuvastatin 20 MG TAB 40 MG PO (19:42)
[2025-05-01] MEDS: Insulin Glargine 300 UNITS/3 ML PEN 45 UNITS SC (19:51)
[2025-05-02] VITALS (25 sets, daily range): BP systolic 111–152; BP diastolic 45–89; PULSE 42–73; RESP 11–22; TEMP 36.6–37.1; O2SAT 94–99
--- NOTE | 2025-05-02 | DI.US_ITS ---
APPROVED REPORT EXAM: Comprehensive 2D, Doppler, and color-flow Echocardiogram Patient Location: In-Patient Room/Bed: [id number] Administrative Supervisor: Erika Ch RDCS (AE) Indications: Angina, HX CABG Other Information Study Quality: Fair. Technically limited study due to body habitus, inability to position patient exam done supine bedside ICU. Conclusion Normal left ventricular wall thickness and chamber size. Ejection fraction is 55 to 60%. There are no segmental wall motion abnormalities Mildly dilated right ventricle. Mildly decreased right ventricular systolic function Both atria are mildly enlarged Aortic valve sclerosis without stenosis or regurgitation Mild mitral and tricuspid regurgitation Estimated right ventricular systolic pressure is 51 mmHg Mildly dilated ascending aorta 3.62 cm Wall motion Left Ventricle The left ventricle is normal size. The overall left ventricular systolic function appears normal. There is normal left ventricular wall thickness. There is normal LV segmental wall motion. There is no ventricular septal defect visualized. LVEF is 56%. Right Ventricle Right ventricle is mildly dilated. Right ventricular systolic function is grossly normal. Atria Left atrium is mildly dilated. Right atrium is mildly dilated. The interatrial septum is intact with no evidence for an atrial septal defect. Aortic Valve The Aortic valve is sclerotic. Number of aortic valve leaflets could not be assessed. No hemodynamically significant valvular aortic stenosis. No aortic regurgitation is present. Mitral Valve Mild mitral annular calcification. No evidence of mitral valve stenosis. Mild mitral regurgitation. Tricuspid Valve The tricuspid valve is normal in structure. There is no tricuspid valve stenosis. Mild tricuspid regurgitation. The RVSP is 51.6 mmHg. Pulmonic Valve The pulmonary valve is normal in structure. There is no pulmonic valvular stenosis. Trace pulmonic regurgitation. Great Vessels The aortic root is normal in size. The ascending aorta is mildly dilated. Aortic arch is not visualized. IVC is normal in size and collapses >50% with inspiration. Pericardium There is no pericardial effusion. 2D Dimensions IVSD d PLAX 1.24 cm M: 0.6-1.2 Ao Root d 3.16 cm M: 3.1 - 3.7 LVPW d PLAX 1.20 cm M: 0.6 - 1.2 Ao Asc Diam d 3.62 cm M: 2.6 - 3.4 LVID d PLAX 5.40 cm M: 4.2 - 5.8 LVDs 3.71 cm M: 2.5 - 4.0 LV EF Teichholz 57.8 % FS 30.74 % LV EDV (Teich) 138.9 mL LV ESV (Teich) 58.6 mL Auto EF LV EDV A4C 191.3 mL LV EDV A2C 173.7 mL LV EDV BP 183.2 mL LV ESV A4C 85.1 mL LV ESV A2C 79.2 mL LV ESV BP 82.8 mL LVEF(%) A4C 55.5 % LVEF(%) A2C 54.4 % LVEF(%) BP 54.8 % LV SV A4C 106.3 ml LV SV A2C 94.6 ml LV SV BP 100.3 ml LV CO A4C 6.2 L/min LV CO A2C 5.4 L/min LV CO BP 5.8 L/min HR A4C 58.26 BPM HR A2C 56.78 BPM LV EDV Index (BP) LV Diastology MV E Vmax 1.26 (0.4-1.3 m/s) Aortic Valve AoV Vmax 2.04 m/s LVOT Vmax 1.15 m/s AoV Peak Grad 16.7 mmHg LVOT Peak Grad 5.3 mmHg AoV Area (Vmax) 1.76 cm2 LVOT VTI 0.254 m AoV VTI 0.443 m LVOT Mean Grad 3.2 mmHg AoV Mean Akbar. 1.50 m/s LVOT SV 79.02 mL AoV Mean Grad 10.1 mmHg LVOT Diam s 1.95 cm AoV Area (VTI) 1.79 cm2 Velocity Ratio 0.56 Mitral Valve MV Vmax TIPS 1.39 m/s MV Mean Grad 1.9 (<2mmHg) MV Area PHT 3.56 cm2 MV VTI 0.399 m Pulmonary Valve PV Vmax 1.05 (0.5-1.5 m/s) RVOT Vmax 0.80 m/s PV Peak Grad 4.4 mmHg RVOT Peak Gr. 2.6 mmHg PV Mean Akbar 0.73 m/s RVOT VTI 0.177 m PV Mean Grad 2.4 mmHg RVOT Mean Gr. 1.3 mmHg Tricuspid Valve RA Pressure 3.00 mmHg TR Vmax 3.48 m/s TR Peak Grad 48.5 mmHg RVSP (TR) 51.6 mmHg
[2025-05-02] MEDS: Levothyroxine 50 MCG TAB PO (06:00)
[2025-05-02] MEDS: Acetaminophen 325 MG TAB 650 MG PO ×3 (06:01→19:28)
[2025-05-02 06:09] LABS: HCT 35.0 % (40.0-50.0); HGB 11.3 g/dL (13.5-17.5); MCH 31.2 pg (27.0-33.0); MCHC 32.3 % (32.0-36.0); MCV 97 fL (80-95); MPV 10.1 fL (8.0-11.0); Platelet Count 302 10^3/uL (130-400); RBC 3.62 10^6/uL (4.36-5.78); RDW 13.0 % (11.8-14.1); RDW-SD 46.5 fL; WBC 9.76 10^3/uL (4.4-10.8)
[2025-05-02 06:34] LABS: ALT 13 U/L (10-49); AST 18 U/L (<34); Albumin 3.8 g/dL (3.2-5.0); Alkaline Phosphatase 49 U/L (46-116); Anion Gap 8.2 mmol/L (3-11); BUN 29 mg/dL (9-23); Bilirubin, Total 0.4 mg/dL (0.2-1.2); CO2 25.8 mmol/L (20.0-31.0); Calcium 9.6 mg/dL (8.3-10.6); Chloride 107 mmol/L (98-107); Glucose 112 mg/dL (74-106); Magnesium 1.7 mg/dL (1.6-2.6); Potassium 4.4 mmol/L (3.5-5.1); Sodium 141 mmol/L (136-145); Total Protein 6.4 g/dL (5.7-8.2)
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
[2025-05-02] MEDS: Normal Saline Flush 10 ML SYR IVP ×2 (09:29→19:29)
[2025-05-02] MEDS: Mirabegron 50 MG TABCR PO (09:30)
[2025-05-02] MEDS: Ezetimibe 10 MG TAB PO (09:30)
[2025-05-02] MEDS: Pantoprazole 40 MG TABCR PO (09:30)
[2025-05-02] MEDS: amLODIPine 5 MG TAB PO (09:31)
[2025-05-02] MEDS: Losartan 25 MG TAB PO (09:31)
[2025-05-02] MEDS: Aspirin E.C. 81 MG TABEC PO (09:31)
[2025-05-02] MEDS: Allopurinol 100 MG TAB 50 MG PO (09:35)
--- NOTE | 2025-05-02 09:50 | IN_ITS ---
PT Notes Visit Reasons: Non-STEMI Inpatient Physical Therapy Evaluation Date: 05/02/2025 Referring Doctor: Caleb Bowman MD PT Orders: PT CONSULT:Safety Consult for PT Precautions: As of 05/02/2025 at 9:30 AM scored a 75/125 (high fall risk) on the Castle Fall Scale. Activity as tolerated. Standard. Patient Profile/Admitting Diagnosis: Olaf is a 74-year-old male patient who presented to the ED on 04/29/2025 due to recurrent chest pain despite nitroglycerin intake. Patient is admitted for [facility] of NSTEMI, heart filure with preserved ejection fraction, type II DM, chronic kidney disease, and hypothyroidism. PMHx: All Active Problems (Updated 04/29/25 @ 21:38 by Skyler Coley) Type 2 diabetes mellitus (Chronic) Non-ST elevation [place] (NSTEMI) (Acute) Low blood sugar in diabetes (Acute) Arthritis of left midfoot (Acute) Pes planus of left foot (Acute) Gout (Acute) Acute non-ST elevation myocardial infarction (NSTEMI) (Acute) Edema (Acute) Venous insufficiency (Acute) Pain in left foot (Acute) Plantar fasciitis of left foot (Acute) Gout due to renal impairment involving toe of right foot (Acute) Hypercalcemia (Acute) Arthritis of right knee (Acute) 40MG DEPO MEDROL 08/08/24 Peripheral sensory neuropathy (Acute) Hammer toes, bilateral (Acute) Sensation of knee instability (Acute) Unstable right knee (Acute) Cardiomyopathy (Acute) Toenail deformity (Acute) Coordination of complex care (Acute) Chart Review ID several Dx/Tx needing re-assessment or Hx requiring re- evaluation ([facility] dec?)(Bi-Pap ordered 12/2023, rec'd?)(Fe Infusion)(Vit D started? re-checked?)(++) Bradycardia (Acute) Noted for some time (1/2 dose trialed in 2021 before change in PCP)(chart reviewed, 05/30/23: dizziness incompletely evaluated 2' pt leaving [facility] AMA.. ACS ruled out 01/08- 12/23.. Metoprolol decreased from 25mg BID per [facility], but maybe NOT implemented? ..and missed in FU! 05/30/23, ik Diuresis (Acute) actively diuresing, good results with q 2-3 days lasix (May 2023). Hx exacerbated CHF in Fall 2022 (AMA 2' intolerance diuretics, unable to get to bathroom; poor sleep 2' noise + uncomfortable bed)((Rx if HOSPTLZATN needed .. ik, 04/2023)) Pitting edema (Chronic) improved with diuretics (mar-apr 2023) .. cont q2 days.. [ ] cardio [facility] re view/eval for ortho surgery Low vitamin D level (Acute) Very low, 7.9! Essential hypertension (Chronic 01/31/13) CKD (chronic kidney disease) stage 3, GFR 30-59 ml/min (Chronic) History of kidney injury (Acute) GLENYS 2' furosemide, 04/17/23, but needed for HF/Edema.. Seeing Nephrology (quarterly) Decreased dorsalis pedis pulse (Acute) per Pod, 01/13/23 (2/4) Absence of posterior tibial pulse (Acute) per Pod, 01/13/23 Coronary artery disease (Chronic) 3-vessel (LAD, LCX, RCA) Acute exacerbation of congestive heart failure (Acute) ED --> Hospitalized for diuresis, but no mosqueda & pt unable to sleep (left AMA) Cardiomegaly (Acute) CXR; ECHO 05/2019 [facility]--LVEF 53%, +LVH (mild), no significant valvular disease; stable compared with 2017 study Hx of iron deficiency anemia (Acute) improved with iron infusion, but did not feel better (possible iron infusions exacerb HF? ~ Mar--Apr 2023)(doubtful based on no IVF, but possible) Fatigue (Acute) Worsened per pt, affecting ADL .. not just de-conditioning? Osteoarthritis of right knee (Acute) DEPO MEDROL 08/14/22 Diabetes mellitus with neuropathy (Chronic) Reduced monofilament 06/24/2019 Goal A1C 7.5% or less Uncontrolled diabetes mellitus (Acute) Ortho Surgery OK < 8 (Dr. Ceja).. 10/2023 .. Goal </=7.5% Current use of insulin (Chronic) Cervical disc disorder with myelopathy (Acute) right arm Overactive bladder (Chronic) Myrbetriq RE-started, 03/2023.. rptd improved @ 04/10/23 ov, ik .. Oxybutynin, discontinued 06/24/19 in favor of optimizing DMT2 management Ataxia (Acute) Asymmetrical sensorineural hearing loss (Acute) Cognitive impairment (Acute) Forgetting, but using notes/print-outs .. ex(?)- helps .. Nail dystrophy (Acute) Onychomycosis (Acute) Tinea pedis (Acute) Blisters of multiple sites (Acute ~01/13/23) [facility]: Seropurulent Blisters, B/L legs.HE Metatarsalgia of left foot (Acute) Pain of right great toe (Acute) Medical History HTN (hypertension) Diabetes mellitus (HFpEF) heart failure with preserved ejection fraction Osteoarthritis of both knees CHF (congestive heart failure), NYHA class II EF 40% (12/2022), decreased from 2019 .. Clinical Dx ClassII Unsteady gait Dizziness incompletely evaluated 2' pt leaving [facility] AMA.. ACS ruled out 01/08- 12/23.. Metoprolol decreased from 25mg BID per [facility], but maybe NOT implemented? ..and missed in FU! 05/30/23, ik Anemia Atrial fibrillation Apixaban 06/22/2019 Hyperlipidemia (08/17/12) Acquired hypothyroidism (10/28/16) High TSH, but WNL T4 (2021) .. re-checking MERRITT (obstructive sleep apnea) Bi-PAP 07/23/19 PAD (peripheral artery disease) Left, per OSVALDO (12/2022) Stopped smoking with greater than 20 pack year history Lung CT Screening, 07/16/20 Epiretinal membrane (~01/2023) right eye Slow heart rate Noted for some time (1/2 dose trialed in 2021 before change in PCP)(chart reviewed, 05/30/23: dizziness incompletely evaluated 2' pt leaving [facility] AMA.. ACS ruled out 01/08- 12/23.. Metoprolol decreased from 25mg BID per [facility], but maybe NOT implemented? ..and missed in FU! 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 Chronic and recurrent low back pain L4-[address] scan in 1993, recurrent since then intermittently. Hypomagnesemia (06/22/14) Only 1.0 in the ER today. Pipe smoker Surgical History History of total left knee replacement (12/13/24) History of colonoscopy (~02/2023) with Mac S/P cardiac catheterization (05/31/19) 2019 History of cataract removal with insertion of prosthetic lens (11/23/14) History of umbilical hernia repair Status post appendectomy Status post coronary artery stent placement (09/26/16) One vessel for unstable angina Status post coronary artery bypass with autogenous graft, 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) 2017 Repair of umbilical hernia Fracture, Open Treatment ORIF-LEFT SYNDESMOSIS WITH TWO SCREWS Colonoscopy - IV Sedation Extraction of cataract 11/23/14; DR. GOINS; RIGHT EYE 12/07/14; DR. GOINS; LEFT EYE Appendectomy Social History/Home Situation: Lives alone. Typically ambulates with cane, stating he discontinued using his walker about a month ago. Participating in outpatient PT at [facility]. Equipment Owned/DME: cane, walker Subjective: Complained of significant pain in his R foot and his R knee which prevented him to attempt even just standing up despite 2 attempts. Nurse Alamo was made aware and plan to premedicate patient prior to this afternoon's session was made. Objective: General Observation: Resting in bed. Swelling in B LE. Dusky appearance to distal LEs. Telemetry monitoring in place. Mental Status: A and O x 3 Pain: 8-9/10 at rest in the R foot and L knee ROM: Right Upper Extremity: Shoulder Flexion WFL. Shoulder abduction WFL. Elbow flexion WFL. Wrist flexion WFL. Functional opening and closing of hand WFL. Left Upper Extremity: Shoulder Flexion WFL. Shoulder abduction WFL. Elbow flexion WFL. Wrist flexion WFL. Functional opening and closing of hand WFL. Right Lower Extremity: Hip flexion WFL. Hip abduction WFL. Knee flexion 20 degrees to 80 degrees. Ankle dorsiflexion to neutral only. Ankle plantarflexion WFL. Left Lower Extremity: Hip flexion WFL. Hip abduction WFL. Knee flexion 20 degrees to 80 degrees. Ankle dorsiflexion to neutral only. Ankle plantarflexion WFL. Strength: Right Upper Extremity: Shoulder flexors 4-/5. Shoulder abductors 4-/5. Elbow flexors 4-/5. Elbow extensors 4-/5. Straight Cutter strong. Left Upper Extremity: Shoulder flexors 4-/5. Shoulder abductors 4-/5. Elbow flexors 4-/5. Elbow extensors 4-/5. Straight Cutter strong. Right Lower Extremity: Hip flexors 3/5. Hip abductors 3/5. Knee flexors 4-/5. Knee extensors 3-/5. Ankle dorsiflexors 3-/5. Ankle plantarflexors 4-/5. Left Lower Extremity: Hip flexors 3/5. Hip abductors 3/5. Knee flexors 4-/5. Knee extensors 3-/5. Ankle dorsiflexors 3-/5. Ankle plantarflexors 4-/5.. Sensation: Intact as to pain and light pressure in B LE Bed Mobility/Transfers: Minimal cueing provided for use of B hands as needed for support, movement sequence, AD management, and posture to reduce fall risk and minimize pain report Supine-sit: contact guard assist with HOB at 30 degrees sit-supine: minimal assist sit-stand: moderate assist x 2 attempts but was unable Gait: Patient refused to stand all the way after attempting to stand up x 2 Stairs: Not tested Balance: Static Sitting: Fair Dynamic Sitting: Fair Static Standing: Unable to test Dynamic Standing: Unable to test Special Tests: Mobility Limitations Standardized Measure [facility] AM-PAC 6 clicks Basic Mobility Inpatient Short Form: Raw Score: 9 CMS Score: 81% impairment Informed Consent/Education: Patient instructed in purpose of PT consult and plan of care. Assessment: Olaf attempted twice to stand up from edge of bed but could not fully put weight to L foot due to significant pain on the L foot and the R knee. Patient will be pre-medicated in the next session to ensure safer and better performance with mobility. Patient presents with clinical signs and symptoms consistent with current/admitting diagnoses that have resulted to mobility limitations, gait instability, generalized weakness, and overall ADL decline as demonstrated by the following impairment level findings: 1. Decreased strength to B UE/LE major muscle groups 2. Impaired sitting/standing balance 3. Impaired activity tolerance 4. Limitation of joint range of motion in B knees and ankles (chronic) 5. Shortness of breath 6. Pain in L foot and R knee Impairments are contributing to the following functional limitations: 1. Decline in bed mobility skills 2. Decline in transfer skills 3. Difficulty with ambulation without assistive device and physical assistance 4. Increased completion time for mobility ADL performance 5. Increased risk for falls 6. Difficulty with managing steps alone safely Patient is assessed as a 41992 moderate complexity based on the following: History: 74-year-old female with past medical history as indicated above Examination: Demonstrable impairment in strength, balance, and mobility level with underlying impairments and functional limitations as exhibited above as well as deficit score of 81% utilizing the [facility] Mobility Inpatient Short Form Presentation: Evolving Decision Makin moderate complexity Plan of Care/Treatment Plan: Patient will highly benefit from skilled physical therapy services including functional mobility training, bed mobility/transfer training, gait and balance training, therapeutic exercises, therapeutic activity, caregiver/staff/family education and training 1x/day, 7 days/week x 1 week. Plan of care has been reviewed with the [employer] providing the service under Physical Therapy direction. Initiate Physical Therapy intervention for strengthening, bed mobility, transfers, gait, stairs, balance training, use of assistive device. DISCHARGE RECOMMENDATIONS: Short-term SNF for continued rehabilitation prior to returning to home. TREATMENT CODE/TIME: 73077 x 20 minutes for 1 unit, 28121 x 12 minutes for 1 unit (9:50-10:22). Thank you for the opportunity to participate in the care of this patient. Milli Segal PT, DPT, CLT [facility] [place], [place]
[2025-05-02] MEDS: Insulin Aspart 300 UNITS/3 ML PEN SC ×2 (12:20→17:03)
[2025-05-02] MEDS: Ibuprofen 600 MG TAB PO ×3 (12:21→19:28)
--- NOTE | 2025-05-02 15:42 | PGE_ITS ---
Date of Service Date of service: 05/02/25 Time of Service: 15:42 Assessment and Plan Assessment and plan (1) Non-ST elevation [place] (NSTEMI): Start date: 04/29/25 Status: Acute Assessment and plan: -History of CABG, longstanding angina usually responsive to home nitroglycerin -Patient has been taking one or more doses of nitroglycerin per day -Presenting with chest pain at rest, initially with elevated troponin -[facility] advising heparin gtt for 48 hours, isosorbide dinitrate and echocardiogram -Recent cardiac cath showed patent grafts -Patient not able to keep up with correspondence regarding his insurance coverage, has missed medications -Patient's HR low after admission, holding imdur for HR < 50 or systolic < 100 -Dosing imdur 10 PO TID for tolerability with mild bradycardia -Echo without acute findings, discussed with [facility] cardiology, agree with current regimen and recommend close outpatient f/u at [facility] (2) (HFpEF) heart failure with preserved ejection fraction: Assessment and plan: Elevated BNP No edema at this time, hold his home furosemide which he takes PRN (3) Atrial fibrillation: Assessment and plan: -Anticoagulated on apixaban, which he has not been able to fill for 2-3 days -had been on heparin drip, started xarelto 05/02 -[facility] will be able to fill rivaroxaban with copay under $50, so ordered (4) Type 2 diabetes mellitus: Status: Chronic Assessment and plan: -A1C 7.3 in November, home regimen includes basal 65u QAM with correctional, and semaglutide -Continue scheduled basal at reduced dose, SSI (5) CKD (chronic kidney disease) stage 3, GFR 30-59 ml/min: Status: Chronic Assessment and plan: -Monitor while hospitalized. This appears stable. (6) Hyperlipidemia: Assessment and plan: -Continue statin therapy. (7) Acquired hypothyroidism: Assessment and plan: -Continue outpatient medical therapy. TSH was normal. (8) MERRITT (obstructive sleep apnea): Assessment and plan: -Patient does have a home CPAP and did not bring in his machine. Offer CPAP at night and encouraged to bring in home machine over the next 2 days. Subjective Subjective Interval history since last seen: Patient complaining of foot pain that feels similar to previous episodes of gout. Was started on ibuprofen and states foot pain is better. He is looking forward to working with physical therapy on ambulation with plan for possible discharge tomorrow 05/03/2025. Exam Narrative Exam Narrative: Well-appearing gentleman laying in bed in no acute distress, ANO x 4, heart regular rhythm, lungs good auscultation bilaterally, abdomen obese, soft, nontender, nondistended, mild pain to palpation of right great metatarsophalangeal joint, though apparently improved as compared to earlier Objective Last Vital Signs Temp 98.8 F 05/02/25 12:39 Pulse 61 05/02/25 12:39 Resp 14 05/02/25 12:39 BP 152/70 H 05/02/25 12:39 Pulse Ox 99 05/02/25 12:39 Laboratory Results - last 24 hr 05/02/25 05:56 WBC 9.76 RBC 3.62 L Hgb 11.3 L Hct 35.0 L MCV 97 H MCH 31.2 MCHC 32.3 RDW 13.0 Plt Count 302 MPV 10.1 Sodium 141 Potassium 4.4 Chloride 107 Carbon Dioxide 25.8 Anion Gap 8.2 BUN 29 H Creatinine 1.31 H Est GFR (CKD-EPI 2020) 53.72 Glucose 112 H Calcium 9.6 Magnesium 1.7 Total Bilirubin 0.4 AST 18 ALT 13 Alkaline Phosphatase 49 Total Protein 6.4 Albumin 3.8 VTE Prohylaxis Risk Level: Moderate/High Risk Contraindications: None and Medical contrainidcation (Chronically on Eliquis missing doses recently) Prophylaxis: Pharmacologic (Heparin infusion with non-STEMI holding Eliquis) and Mechanical Time Spent with Patient Time Spent with Patient: >50 minutes Time was spent: preparing to see the patient(eg.review tests), obtaining and/or reviewing separately otained hiistory, ordering medications,tests, procedures, referring, communicating with other health healthcare network consultant, indepentently interpreting results, counseling the patient and care coordination
[2025-05-02] MEDS: Rivaroxaban 10 MG TABLET 20 MG PO (17:03)
[2025-05-02] MEDS: Gabapentin 300 MG CAP PO (19:28)
[2025-05-02] MEDS: traZODone 50 MG TAB PO (19:28)
[2025-05-02] MEDS: Rosuvastatin 20 MG TAB 40 MG PO (19:28)
[2025-05-02] MEDS: Insulin Glargine 300 UNITS/3 ML PEN 45 UNITS SC (20:06)
[2025-05-03] VITALS (8 sets, daily range): BP systolic 121–148; BP diastolic 58–61; PULSE 48–76; RESP 14–20; TEMP 35.6
[2025-05-03] MEDS: Levothyroxine 50 MCG TAB PO (06:49)
[2025-05-03] MEDS: Pantoprazole 40 MG TABCR PO (06:49)
[2025-05-03] MEDS: Ketoconazole 2% CREAM 15 GM TUBE TP (07:50)
[2025-05-03] MEDS: Normal Saline Flush 10 ML SYR IVP (07:51)
[2025-05-03] MEDS: Mirabegron 50 MG TABCR PO (07:51)
[2025-05-03] MEDS: Ezetimibe 10 MG TAB PO (07:52)
[2025-05-03] MEDS: Ibuprofen 600 MG TAB PO ×2 (07:52→11:41)
[2025-05-03] MEDS: Aspirin E.C. 81 MG TABEC PO (07:52)
[2025-05-03] MEDS: Losartan 25 MG TAB PO (07:52)
[2025-05-03] MEDS: amLODIPine 5 MG TAB PO (07:52)
--- NOTE | 2025-05-03 10:49 | PT.INTREAT ---
PT Notes Visit Reasons: Non-STEMI Date:??05/03/2025 ? PRECAUTIONS:?As of 05/02/2025 at 9:30 AM scored a 75/125 (high fall risk) on the Castle Fall Scale. Activity as tolerated. Standard. ? SUBJECTIVE:??Pt reports his knee and toe pain is slightly improved this morning, agreed to participating with therapy session. ? OBJECTIVE:?telemetry PAIN:??7/10 knee pain, 8/10 toe pain VITALS:??monitored by nursing in ICU ? Therapeutic Activities 67890: Direct one-on-one instruction in dynamic activities to improve functional performance.? BED MOBILITY/TRANSFERS Rolling L/R:??supervision Supine-sit:?supervision Sit-supine:? supervision Sit-stand:?SBA Stand-sit:??SBA Bed-Chair: SBA Chair-bed:??SBA Provided?skilled?cues and instruction on performance and technique throughout.?? ? Gait Training 74993: Direct one-on-one instruction?and?skilled instruction?in:?? Employing an assistive device?? Modified weight-bearing status? Movement sequencing?? Turning and movement with proper form?? Provided verbal cues for equipment management and technique? Provided instruction in gait pattern? Patient education?regarding?pacing?and breathing techniques to maximize activity tolerance? GAIT Assistive Device:??FWW Weight bearing:? FWB Assist:?SBA Distance: 50' x 2 seated rest break in between Deviation: Antalgic, slow josette speeed, increased BUE loading ? ASSESSMENT: pt tolerated activity well, required long seated rest break to allow for knee and toe pain to subside after walking first 50', pt situated in bed post session for safety and comfort post session. ? PLAN: Continue with?balance training,?global strengthening and general conditioning for improved?safety,?mobility?and activity tolerance until pt is ready for DC.? ? TREATMENT CODE/TIME:?51827x0 30mins (10:20-10:50am)
--- NOTE | 2025-05-03 11:17 | W.PM.DS.N ---
Date of service: 05/03/25 Time of Service: 11:17 DS: Diagnosis Discharge Diagnosis (1) Non-ST elevation NV (NSTEMI): Status: Acute (2) (HFpEF) heart failure with preserved ejection fraction: (3) Atrial fibrillation: (4) Type 2 diabetes mellitus: Status: Chronic (5) CKD (chronic kidney disease) stage 3, GFR 30-59 ml/min: Status: Chronic (6) Hyperlipidemia: (7) Acquired hypothyroidism: (8) MERRITT (obstructive sleep apnea): Discharge Plan Disposition Patient Disposition: Snf Facility(SNF) Condition: Good Discharge Details Reason For Visit: Non-STEMI Admit Date/Time: 04/29/25 21:26 Admit Provider: Skyler Coley Attending Provider: Skyler Coley Primary Care Provider: Richard Jeffers Hospital Course Hospital Course: Patient initially presented with signs and symptoms of chest pain that were determined to likely be secondary to an NSTEMI. As per [facility] cardiology recommendations the patient was placed on heparin drip for 48 hours and was started on Imdur for his chest pain. Ultimately, the patient was able to tolerate 10 mg of Imdur 3 times daily, but concurrently had to have his carvedilol discontinued as he was having bradycardia with heart rates down to the high 30s during sleep without would often bounce back once the patient was awake, with heart rates in the mid 40s to mid 60s during the day although the patient was asymptomatic. This was discussed with [facility] cardiology and given the patient was asymptomatic they did not have any further concerns and only recommended continuing his Imdur and patient having close outpatient follow-up with his PCP. Given that patient also was having ambulatory dysfunction he worked with physical therapy and was determined to benefit from placement at short-term rehab. Ultimately, it was determined that the patient was stable for discharge. Home Meds and New Rx's Prescriptions: New Xarelto 20 mg tablet 20 mg PO QPM Qty: 30 0RF Rx Instructions: Patient discontinuing apixaban. Administer with evening meal. isosorbide mononitrate 10 mg Tablet 10 mg PO TID Qty: 90 0RF Continued insulin aspart U-100 [Novolog FlexPen U-100 Insulin] 100 unit/mL (3 mL) insulin pen See Rx Instructions .ROUTE .COMPLEX Qty: 90 3RF Dose Instruction: INJECT 10 TO 30 UNITS BEFORE MEALS PER MEALTIME CORRECTION SCHEDULE Patient Comments: Pt states he takes after meals depending on his BG reading - MADI, RN 03/01/25 Rx Instructions: INJECT 10 TO 30 UNITS BEFORE MEALS PER MEALTIME CORRECTION SCHEDULE mirabegron [Myrbetriq] 50 mg tablet extended release 24 hr 50 mg PO DAILY Qty: 90 3RF aspirin 81 mg tablet,delayed release (DR/EC) 81 mg PO DAILY Patient Comments: 06/02/19-replaces 325mg. daily dose. [facility] [place] discharge note. JOBY Mchugh rosuvastatin 40 mg tablet See Rx Instructions .ROUTE .COMPLEX Qty: 90 3RF Dose Instruction: TAKE 1 TABLET DAILY Rx Instructions: TAKE 1 TABLET DAILY fenofibrate nanocrystallized [Tricor] 145 mg tablet 145 mg PO DAILY Qty: 90 3RF semaglutide 1 mg/dose (4 mg/3 mL) pen injector 1 mg subcut QWEEK Qty: 3 5RF furosemide 40 mg tablet 40 mg PO DAILY PRN (Reason: LEG SWELLING) Qty: 90 3RF Patient Comments: 11/15/24 pt takes very 3 days RH Rx Instructions: Re-start, 04/14 x 3-5 days levothyroxine 50 mcg tablet See Rx Instructions .ROUTE .COMPLEX Qty: 90 3RF Dose Instruction: TAKE 1 TABLET DAILY FOR THYROID Rx Instructions: TAKE 1 TABLET DAILY FOR THYROID nitroglycerin 0.4 mg tablet, sublingual 0.4 mg SL Q5M PRN (Reason: chest pain) Qty: 90 3RF Rx Instructions: Take 1 at onset of chest pain, may repeat x2 q5 min if pain continues. losartan 25 mg tablet See Rx Instructions .ROUTE .COMPLEX Qty: 90 0RF Dose Instruction: TAKE 1 TABLET AT BEDTIME FOR DIABETES, AND TO PROTECT KIDNEYS Rx Instructions: TAKE 1 TABLET AT BEDTIME FOR DIABETES, AND TO PROTECT KIDNEYS ketoconazole 2 % cream 1 applic topical DAILY Qty: 120 6RF Rx Instructions: Apply to 1g to skin and toenails once daily amlodipine 2.5 mg tablet 2.5 mg PO DAILY ezetimibe 10 mg tablet 10 mg PO DAILY insulin glargine [Lantus Solostar U-100 Insulin] 100 unit/mL (3 mL) insulin pen 65 unit Sub-Q QPM Rx Instructions: Or as directed for dx: E11.65 acetaminophen 500 mg tablet 1,000 mg PO Q8H PRN Qty: 90 0RF Rx Instructions: Take two tablets up to every 8 hours as needed for pain pantoprazole 40 mg tablet,delayed release (DR/EC) 40 mg PO DAILY Qty: 14 0RF Rx Instructions: Take one tablet once daily gabapentin 300 mg capsule 300 mg PO QHS Qty: 14 0RF Rx Instructions: Take one tablet at bedtime ergocalciferol (vitamin D2) [Vitamin D2] 1,250 mcg (50,000 unit) capsule 1,250 mcg PO .WEEKLY trazodone 50 mg tablet 50 mg PO QHS docusate sodium [Colace] 100 mg capsule 100 mg PO BID PRN Jardiance 25 mg Tablet 25 mg PO QAM Qty: 30 0RF allopurinol 100 mg Tablet 50 mg PO Q2D Qty: 15 0RF Discontinued Eliquis 5 mg tablet 5 mg PO BID Qty: 180 3RF Rx Instructions: PLEASE EXPLAIN WHAT HAPPENED TO 05/29/23 PRESCRIPTION? carvedilol 3.125 mg tablet No Action (DME) FreeStyle Bahman 2 [place] Misc See Rx Instructions .ROUTE .MEDSUPPLY Qty: 1 0RF Rx Instructions: As directed (DME) Knee Brace - STABILIZING See Rx Instructions .Route .MEDSUPPLY Qty: 1 1RF Rx Instructions: One RT KNEE STABILIZING BRACE; (DME) lancets [FreeStyle Lancets] 28 gauge misc See Rx Instructions .ROUTE .MEDSUPPLY Qty: 400 3RF Rx Instructions: to test BS 4X daily for DM/E11.9 and to keep A1c at or under 7.0% (DME) pen needle, diabetic [BD Ultra-Fine Amber Pen Needle] 32 gauge x 5/32 needle 1 ea Miscellaneous QID Qty: 400 3RF Rx Instructions: E11.65 to administer insulin 4x/day (DME) Blood Glucose Test Strip See Rx Instructions .MEDSUPPLY Qty: 400 3RF Rx Instructions: As directed to check blood glucose four times daily. On insulin. Dispense covered brand. (DME) FreeStyle Bahman 2 Sensor Kit See Rx Instructions .ROUTE .MEDSUPPLY Qty: 2 11RF Rx Instructions: As directed Discharge Instructions Activity:: Activity as Tolerated Equipment/Supplies:: No Equipment Needed Diet:: As Tolerated Discharge Orders Discharge Orders: Discharge Order (Routine); Ordered 05/03/25 Ordered By: Doe Martin DS: Summary Time Spent with Patient providing and/or coordinating discharge services: Greater than 30 minutes Status at Discharge Functional status at discharge: independent ambulation Overall status at discharge: patient is back to baseline Mental Status: mental status grossly normal Speech and Movement: speech and movement normal Mood: congruent mood Affect: normal affect Quality:SDOH Health Related Social Needs: Health related social needs daily activities lonely/isolated Health related social needs details Pt states he is independent at baseline. He states he will need help if he continues to have trouble weight bearing on his left foot. Pt currently from his at this time. Exam Narrative Exam Narrative: Well-appearing gentleman laying in bed in no acute distress, ANO x 4, heart regular rhythm, lungs good auscultation bilaterally, abdomen obese, soft, nontender, nondistended, mild pain to palpation of right great metatarsophalangeal joint though improved as compared to previous day Psych Mental Status: mental status grossly normal Speech and Movement: speech and movement normal Mood: congruent mood Affect: normal affect DS: Data Vitals/I&O Vitals and I&O: Vital Signs Temperature 96.1 F L 05/03/25 06:29 Temperature Source Temporal Artery Scan 05/03/25 06:29 Pulse 53 L 05/03/25 07:41 Pulse 68 05/03/25 07:41 Respiratory Rate 20 05/03/25 07:41 Respiratory Effort Normal 04/29/25 22:37 Respiratory Depth Normal 04/29/25 22:37 Respiratory Pattern Normal 04/29/25 22:37 Blood Pressure 128/61 05/03/25 07:41 Blood Pressure Mean 79 05/03/25 07:41 Blood Pressure Position Supine 04/29/25 22:37 Pulse Oximetry 94 05/02/25 16:35 Oxygen Delivery Method Room Air 05/02/25 16:35 Oxygen Flow Rate 0 05/02/25 20:31 Fraction of Inspired Oxygen (FIO2) 21 05/02/25 20:31 Pain Level 8 05/02/25 08:30 Intake & Output 05/02/25 05/03/25 05/03/25 17:59 05:59 17:59 Intake Total 682 / 682 240 / 922 240 / 240 Output Total 950 / 950 800 / 800 Balance -268 / -268 240 / -28 -560 / -560 Weight 281 lb 4.957 oz 281 lb 12.012 oz Intake: Oral 682 / 682 240 / 922 240 / 240 Output: Urine 950 / 950 800 / 800 Other: Urine Color Light Liseth Yellow Urine Appearance Clear Clear Urine Odor Strong Comment moderate amount urine mixed with soft unformed stool in commode. Stool Size Large Large Stool Characteristics Soft Soft Formed Brown Brown Data Completed and Pending Pending Labs at Discharge: 04/29/25 04/29/25 04/29/25 17:15 18:15 20:10 WBC 11.26 H RBC 4.00 L Hgb 12.4 L Hct 38.6 L MCV 97 H MCH 31.0 MCHC 32.1 RDW 12.7 Plt Count 336 MPV 10.5 Immature Gran % 0.5 Neutrophils % 74.9 Lymphocytes % 15.7 Monocytes % 6.5 Eosinophils % 1.9 Basophils % 0.5 Nucleated RBC % 0.0 Absolute Neutrophils 8.43 H Absolute Lymphocytes 1.77 Absolute Monocytes 0.73 Absolute Eosinophils 0.21 Absolute Basophils 0.06 PT 10.2 INR 1.0 APTT 23.6 Sodium 142 Potassium 4.2 Chloride 104 Carbon Dioxide 27.6 Anion Gap 10.4 BUN 31 H Creatinine 1.47 H Est GFR (CKD-EPI 2020) 47.03 Glucose 196 H Calcium 9.6 Magnesium 1.8 Cancelled Total Bilirubin 0.3 AST 23 ALT 17 Alkaline Phosphatase 72 Troponin I 86 H* 116 H* 191 H* NT-Pro-B Natriuret Pep 1509 H Total Protein 7.1 Albumin 4.3 Lipase 44 TSH COVID-19 Source Nasopharynx SARS-CoV-2 (PCR) Negative Influenza Type A (PCR) Negative Influenza Type B (PCR) Negative RSV (PCR) Negative 04/29/25 04/30/25 04/30/25 23:00 01:33 06:01 WBC 7.91 RBC 3.59 L Hgb 11.3 L Hct 34.8 L MCV 97 H MCH 31.5 MCHC 32.5 RDW 12.9 Plt Count 318 MPV 10.8 Immature Gran % Neutrophils % Lymphocytes % Monocytes % Eosinophils % Basophils % Nucleated RBC % Absolute Neutrophils Absolute Lymphocytes Absolute Monocytes Absolute Eosinophils Absolute Basophils PT INR APTT 38.7 H Sodium 144 Potassium 4.1 Chloride 107 Carbon Dioxide 27.6 Anion Gap 9.4 BUN 30 H Creatinine 1.36 H Est GFR (CKD-EPI 2020) 51.45 Glucose 113 H Calcium 9.2 Magnesium 1.9 Total Bilirubin 0.3 AST 19 ALT 14 Alkaline Phosphatase 52 Troponin I 177 H* NT-Pro-B Natriuret Pep Total Protein 6.2 Albumin 3.7 Lipase TSH 3.12 COVID-19 Source SARS-CoV-2 (PCR) Influenza Type A (PCR) Influenza Type B (PCR) RSV (PCR) 04/30/25 04/30/25 04/30/25 06:12 09:07 12:05 WBC RBC Hgb Hct MCV MCH MCHC RDW Plt Count MPV Immature Gran % Neutrophils % Lymphocytes % Monocytes % Eosinophils % Basophils % Nucleated RBC % Absolute Neutrophils Absolute Lymphocytes Absolute Monocytes Absolute Eosinophils Absolute Basophils PT INR APTT 45.0 H Sodium Potassium Chloride Carbon Dioxide Anion Gap BUN Creatinine Est GFR (CKD-EPI 2020) Glucose Calcium Magnesium Total Bilirubin AST ALT Alkaline Phosphatase Troponin I 184 H* 115 H* NT-Pro-B Natriuret Pep Total Protein Albumin Lipase TSH COVID-19 Source SARS-CoV-2 (PCR) Influenza Type A (PCR) Influenza Type B (PCR) RSV (PCR) 04/30/25 04/30/25 05/01/25 16:07 22:22 05:52 WBC 7.46 RBC 3.51 L Hgb 11.1 L Hct 33.9 L MCV 97 H MCH 31.6 MCHC 32.7 RDW 13.2 Plt Count 306 MPV 10.8 Immature Gran % Neutrophils % Lymphocytes % Monocytes % Eosinophils % Basophils % Nucleated RBC % Absolute Neutrophils Absolute Lymphocytes Absolute Monocytes Absolute Eosinophils Absolute Basophils PT INR APTT 66.8 H 58.6 H 61.5 H Sodium 141 Potassium 4.1 Chloride 106 Carbon Dioxide 26.3 Anion Gap 8.7 BUN 33 H Creatinine 1.44 H Est GFR (CKD-EPI 2020) 48.17 Glucose 118 H Calcium 9.2 Magnesium 1.8 Total Bilirubin 0.3 AST 23 ALT 15 Alkaline Phosphatase 49 Troponin I NT-Pro-B Natriuret Pep Total Protein 6.0 Albumin 3.6 Lipase TSH COVID-19 Source SARS-CoV-2 (PCR) Influenza Type A (PCR) Influenza Type B (PCR) RSV (PCR) 05/01/25 05/02/25 12:05 05:56 WBC 9.76 RBC 3.62 L Hgb 11.3 L Hct 35.0 L MCV 97 H MCH 31.2 MCHC 32.3 RDW 13.0 Plt Count 302 MPV 10.1 Immature Gran % Neutrophils % Lymphocytes % Monocytes % Eosinophils % Basophils % Nucleated RBC % Absolute Neutrophils Absolute Lymphocytes Absolute Monocytes Absolute Eosinophils Absolute Basophils PT INR APTT 61.4 H Sodium 141 Potassium 4.4 Chloride 107 Carbon Dioxide 25.8 Anion Gap 8.2 BUN 29 H Creatinine 1.31 H Est GFR (CKD-EPI 2020) 53.72 Glucose 112 H Calcium 9.6 Magnesium 1.7 Total Bilirubin 0.4 AST 18 ALT 13 Alkaline Phosphatase 49 Troponin I NT-Pro-B Natriuret Pep Total Protein 6.4 Albumin 3.8 Lipase TSH COVID-19 Source SARS-CoV-2 (PCR) Influenza Type A (PCR) Influenza Type B (PCR) RSV (PCR) PFSH All Active Problems (Updated 04/29/25 @ 21:38 by Skyler Coley) Type 2 diabetes mellitus (Chronic) Non-ST elevation NV (NSTEMI) (Acute) Low blood sugar in diabetes (Acute) Arthritis of left midfoot (Acute) Pes planus of left foot (Acute) Gout (Acute) Acute non-ST elevation myocardial infarction (NSTEMI) (Acute) Edema (Acute) Venous insufficiency (Acute) Pain in left foot (Acute) Plantar fasciitis of left foot (Acute) Gout due to renal impairment involving toe of right foot (Acute) Hypercalcemia (Acute) Arthritis of right knee (Acute) 40MG DEPO MEDROL 08/08/24 Peripheral sensory neuropathy (Acute) Hammer toes, bilateral (Acute) Sensation of knee instability (Acute) Unstable right knee (Acute) Cardiomyopathy (Acute) Toenail deformity (Acute) Coordination of complex care (Acute) Chart Review ID several Dx/Tx needing re-assessment or Hx requiring re-evaluation ([facility] apr?)(Bi-Pap ordered 12/2023, rec'd?)(Fe Infusion)(Vit D started? re-checked?)(++) Bradycardia (Acute) Noted for some time (1/2 dose trialed in 2021 before change in PCP)(chart reviewed, 05/30/23: dizziness incompletely evaluated 2' pt leaving [facility] AMA.. ACS ruled out 01/08-12/23.. Metoprolol decreased from 25mg BID per [facility], but maybe NOT implemented? ..and missed in FU! 05/30/23, sung Diuresis (Acute) actively diuresing, good results with q 2-3 days lasix (May 2023). Hx exacerbated CHF in Fall 2022 (AMA 2' intolerance diuretics, unable to get to bathroom; poor sleep 2' noise + uncomfortable bed)((Rx if HOSPTLZATN needed .. ik, 04/2023)) Pitting edema (Chronic) improved with diuretics (mar-apr 2023) .. cont q2 days.. [ ] cardio [facility] [place] review/eval for ortho surgery Low vitamin D level (Acute) Very low, 7.9! Essential hypertension (Chronic 01/31/13) CKD (chronic kidney disease) stage 3, GFR 30-59 ml/min (Chronic) History of kidney injury (Acute) GLENYS 2' furosemide, 04/17/23, but needed for HF/Edema.. Seeing Nephrology (quarterly) Decreased dorsalis pedis pulse (Acute) per Pod, 01/13/23 (2/4) Absence of posterior tibial pulse (Acute) per Pod, 01/13/23 Coronary artery disease (Chronic) 3-vessel (LAD, LCX, RCA) Acute exacerbation of congestive heart failure (Acute) ED --> Hospitalized for diuresis, but no mosqueda & pt unable to sleep (left AMA) Cardiomegaly (Acute) CXR; ECHO 05/2019 [facility] [place]--LVEF 53%, +LVH (mild), no significant valvular disease; stable compared with 2017 study Hx of iron deficiency anemia (Acute) improved with iron infusion, but did not feel better (possible iron infusions exacerb HF? ~ Mar--Apr 2023)(doubtful based on no IVF, but possible) Fatigue (Acute) Worsened per pt, affecting ADL .. not just de-conditioning? Osteoarthritis of right knee (Acute) DEPO MEDROL 08/14/22 Diabetes mellitus with neuropathy (Chronic) Reduced monofilament 06/24/2019 Goal A1C 7.5% or less Uncontrolled diabetes mellitus (Acute) Ortho Surgery [place] < 8 (Dr. Ceja).. 10/2023 .. Goal </=7.5% Current use of insulin (Chronic) Cervical disc disorder with myelopathy (Acute) right arm Overactive bladder (Chronic) Myrbetriq RE-started, 03/2023.. rptd improved @ 04/10/23 ov, ik .. Oxybutynin, discontinued 06/24/19 in favor of optimizing DMT2 management Ataxia (Acute) Asymmetrical sensorineural hearing loss (Acute) Cognitive impairment (Acute) Forgetting, but using notes/print-outs .. ex(?)- helps .. Nail dystrophy (Acute) Onychomycosis (Acute) Tinea pedis (Acute) Blisters of multiple sites (Acute ~01/13/23) 01/13/23 [facility] note- Dr. Barker: Seropurulent Blisters, B/L legs.HE Metatarsalgia of left foot (Acute) Pain of right great toe (Acute) Medical History HTN (hypertension) Diabetes mellitus (HFpEF) heart failure with preserved ejection fraction Osteoarthritis of both knees CHF (congestive heart failure), NYHA class II EF 40% (12/2022), decreased from 2019 .. Clinical Dx ClassII Unsteady gait Dizziness incompletely evaluated 2' pt leaving [facility] AMA.. ACS ruled out 01/08-12/23.. Metoprolol decreased from 25mg BID per [facility], but maybe NOT implemented? ..and missed in FU! 05/30/23, ik Anemia Atrial fibrillation Apixaban 06/22/2019 Hyperlipidemia (08/17/12) Acquired hypothyroidism (10/28/16) High TSH, but WNL T4 (2021) .. re-checking MERRITT (obstructive sleep apnea) Bi-PAP 07/23/19 PAD (peripheral artery disease) Left, per OSVALDO (12/2022) Stopped smoking with greater than 20 pack year history Lung CT Screening, 07/16/20 Epiretinal membrane (~01/2023) right eye Slow heart rate Noted for some time (1/2 dose trialed in 2021 before change in PCP)(chart reviewed, 05/30/23: dizziness incompletely evaluated 2' pt leaving [facility] AMA.. ACS ruled out 01/08-12/23.. Metoprolol decreased from 25mg BID per [facility], but maybe NOT implemented? ..and missed in FU! 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 Chronic and recurrent low back pain L4-[address] scan in 1993, recurrent since then intermittently. Hypomagnesemia (06/22/14) Only 1.0 in the ER today. Pipe smoker Surgical History History of total left knee replacement (12/13/24) History of colonoscopy (~02/2023) with Mac S/P cardiac catheterization (05/31/19) 2019 History of cataract removal with insertion of prosthetic lens (11/23/14) History of umbilical hernia repair Status post appendectomy Status post coronary artery stent placement (09/26/16) One vessel for unstable angina Status post coronary artery bypass with autogenous graft, 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) 2017 Repair of umbilical hernia Fracture, Open Treatment ORIF-LEFT SYNDESMOSIS WITH TWO SCREWS Colonoscopy - IV Sedation Extraction of cataract 11/23/14; DR. GOINS; RIGHT EYE 12/07/14; DR. GOINS; LEFT EYE Appendectomy Family History Father Diabetes Dementia Neoplasm PANCREATIC Social History Smoking/Tobacco Use Status: Former Tobacco Use Quit Date: 01/02/17 Pack-years: 40 Tobacco: How many years used: 40 Quit status: has quit before Smoking risk assessment performed?: Yes Alcohol Intake: former Counseling given: Yes Counseling provided: reduce to 2 or less/day Details: 2-3 oz at a time Drug use: Never Substance use type: does not use Adopted: No Caregiver/Support person: No Foster care: No Household members: none and other Details: Cats Housing: house Number of Children: 3 number of grandchildren: 4 Communication Needs: None Do you need help understanding health information?: Rarely Pets and animals: Yes Pets and animals: cat(s) Do you think of yourself as: straight/heterosexual Current gender identity: male What is your relationship status?: How often do you talk on the phone with friends or family?: three or more times per week How often do you get together with friends or relatives?: twice per week Panel score (0-1 are the most socially isolated patients): 1 What type of physical activity do you participate in: other Details: Tredmill Duration: 45-60 minutes/day Frequency: 5-6 times per week Special isi needs: No Seatbelt use: always Helmet use: Yes Helmet use: always Drive intox 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 armor reconnaissance vehicle driver: No Working smoke detector in home: No Fire extinguisher in home: No Carbon monox detector in home: No Do you feel safe at home: Yes Do you feel safe in your relationship?: Yes Time Spent with Patient Time Spent with Patient: <45 minutes Time was spent: preparing to see the patient(eg.review tests), obtaining and/or reviewing separately otained hiistory, ordering medications,tests, procedures, referring, communicating with other health home day care provider, indepentently interpreting results, counseling the patient and care coordination
[2025-05-03] MEDS: Insulin Aspart 300 UNITS/3 ML PEN SC (11:42)
--- NOTE | 2025-05-03 14:18 | PDOC.CMDIS ---
Date of service: 05/03/25 Time of Service: 14:18 LACE Index Scoring Tool Questions: Length of Stay (in days): 4 - 6 Was the patient admitted via the E.D.?: Yes Comorbidities: Previous M.I., Diabetes w/o Complication and Liver or Renal Disease E.D. Visits: 3 Answers: Total Score: 15 Risk of Readmission: High Risk Care Management Discharge Plan Reason for Hospitalization: Non-STEMI Discharge Plan: Minh was transferred to [facility] for short term rehab today. He was transported via [facility] private vehicle, coordinated by CM. He will follow up with his PCP and discharge plan of care. He was happy to go to rehab, as he did not feel physically ready to return home. Patient/Family Education Needs: Review discharge instructions and limitations, discussion of self care needs including ask me three. Services Needed at Discharge: Long-Term Facility (SNF) and Transportation ([facility] private vehicle) SDOH Health Related Social Needs: Health related social needs daily activities lonely/isolated Health related social needs details Pt states he is independent at baseline. He states he will need help if he continues to have trouble weight bearing on his left foot. Pt currently from his at this time.
== END 2025-05-03 12:31 | disposition skilled nursing facility (03) | DRG 281 ==
LOC: ER 20:16 → ICU 22:04
PROVIDERS: Family Medicine; Admitting Provider Family Medicine; Emergency Provider Emergency Medicine; PCP Student in an Organized Health Care Education/Training Program; Responsible Provider Family Medicine; Visit Provider Family Medicine
DX: I21.4 Non-ST elevation (NSTEMI) myocardial infarction (principal); I50.32 Chronic diastolic (congestive) heart failure; I48.20 Chronic atrial fibrillation, unspecified; E11.22 Type 2 diabetes mellitus with diabetic chronic kidney disease; N18.30 Chronic kidney disease, stage 3 unspecified; E78.5 Hyperlipidemia, unspecified; G47.33 Obstructive sleep apnea (adult) (pediatric); Z95.1 Presence of aortocoronary bypass graft; I25.10 Atherosclerotic heart disease of native coronary artery without angina pectoris; I87.2 Venous insufficiency (chronic) (peripheral); E11.42 Type 2 diabetes mellitus with diabetic polyneuropathy; I42.9 Cardiomyopathy, unspecified; I13.0 Hypertensive heart and chronic kidney disease with heart failure and stage 1 through stage 4 chronic kidney disease, or unspecified chronic kidney disease; Z68.41 Body mass index [BMI] 40.0-44.9, adult; M1A.4710 Other secondary chronic gout, right ankle and foot, without tophus (tophi); E83.52 Hypercalcemia; R53.83 Other fatigue; Z79.4 Long term (current) use of insulin; B35.1 Tinea unguium; R41.89 Other symptoms and signs involving cognitive functions and awareness; R26.81 Unsteadiness on feet; M17.0 Bilateral primary osteoarthritis of knee; I73.9 Peripheral vascular disease, unspecified; Z87.891 Personal history of nicotine dependence; E66.9 Obesity, unspecified; R00.1 Bradycardia, unspecified; E03.9 Hypothyroidism, unspecified; Z79.01 Long term (current) use of anticoagulants; I48.91 Unspecified atrial fibrillation; Z96.652 Presence of left artificial knee joint
CPT/HCPCS: 00123; 36415; 80053; 83690; 85027; 87637; 93005; 93306; 96365; 96366; 96375; 97162; 97530; 99285; 71046; 83735; 83880; 84443; 84484; 85025; 85610; 85730; 93010; 94760; 99223; 99232; 99233; 99238; J1644; J1815; J2270; J2305; J3490